=== PATIENT | male | born 1970 | race Caucasian/White ===

== ENCOUNTER 2018-09-27 13:20 | Emergency (ER) | payer SELFPAY ==
[2018-09-27 13:22] VITALS: BP 122/91; PULSE 77; RESP 18; TEMP 36.6; O2SAT 98; BMI 31.5
[2018-09-27 13:31] LABS: Bedside Glucose 88 mg/dL (70-110)
--- NOTE | 2018-09-27 13:35 | CT_ITS ---
STUDY: CT BRAIN WITHOUT CONTRAST REASON FOR EXAM: Male, 48 years old. Left arm weakness. RADIATION DOSAGE (If Supplied By Facility): CTDIvol = ( 44.99 ) mGy, DLP = ( 846.73 ) mGycm TECHNIQUE: Transaxial CT imaging of the brain was performed without administration of intravenous contrast material. Individualized dose optimization techniques were used for this CT. COMPARISON: None. FINDINGS: Normal soft tissue structures. Normal calvarium. Normal size ventricles and extra-axial spaces for the patient's age. Normal white matter tracts of the cerebral hemispheres. Normal basal ganglia and thalami. Normal brainstem. Normal cerebellum. There is no intracranial hemorrhage. There are no findings of an acute ischemic infarction. Mucosal thickening of the ethmoid sinuses bilaterally. CT/Brain/Head without Contrast IMPRESSION: Normal unenhanced CT scan of the brain. Electronically Signed: Judah Montgomery MD at 15:08 EST Tel [phone], Service support ,
--- NOTE | 2018-09-27 13:37 | EKG12_ITS ---
Test Reason : STROKE SYMPTOMS Blood Pressure : / mmHG Vent. Rate : 078 BPM Atrial Rate : 078 BPM P-R Int : 218 ms QRS Dur : 118 ms QT Int : 398 ms P-R-T Axes : 059 -41 005 degrees QTc Int : 453 ms Sinus rhythm with 1st degree A-V block Possible Left atrial enlargement Left axis deviation Incomplete right bundle branch block Abnormal ECG Confirmed by ISAIAS PINK ([id number]), medical transcription editor SAMEER NOBLE ([id number]) on 09/30/2018 1:06:29 PM Referred By: [place]LE Confirmed By:ISAIAS PINK
--- NOTE | 2018-09-27 13:37 | MRI_ITS ---
STUDY: MRI CERVICAL SPINE WITHOUT CONTRAST REASON FOR EXAM: Male, 48 years old. Neck pain and left arm pain. Flaccid left arm. TECHNIQUE: Standardized fat and water weighted pulse sequences were obtained in the sagittal and axial planes. COMPARISON: None FINDINGS: Normal foramen magnum and brainstem-cervical cord junction. 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 Normal anterior atlantoaxial articulation. Normal odontoid process. Mild cervical kyphosis. Normal vertebral bodies and posterior osseous elements. C2-3: Normal endplates. Normal disc height, signal and morphology. Normal central canal and intervertebral neural foramina. C3-4: Normal endplates. Normal disc height. Minimal anterolisthesis of C3 and C4. Small posterior bulging disc. Normal central canal and bilateral intervertebral neural foramina. C4-5: Normal endplates. Normal disc height and morphology. Normal central canal and bilateral intervertebral neural foramina. C5-6: Normal endplates. Moderate disc space height narrowing. No ventral extra dural defect. Normal central canal and bilateral intervertebral neural foramina. C6-7: Normal endplates. Mild disc space height narrowing. Minimal degenerative anterolisthesis of C6-C7. Small right posterior paramedian disc protrusion. Normal central canal and bilateral intervertebral neural foramina. C7-T1: Normal endplates. Normal disc height and morphology. Mild degenerative anterolisthesis of C7 on T1. Normal central canal and bilateral intervertebral neural foramina. T1-T2 and T2-T3: Normal endplates. Normal disc height, hydration and morphology. Normal central canal and bilateral intervertebral neural foramina. T3-T4: (Sagittal only). Normal endplates. Normal disc height and morphology. Normal central canal and bilateral intervertebral neural foramina. Normal cervical cord. Normal visualized soft tissue structures. MRI/Spine Cervical (Routine) IMPRESSION: 1. Minimal degenerative anterolisthesis of C6 on C7 and small right posterior paramedian disc protrusion. 2. Moderate C5-C6 disc space height narrowing. 3. Minimal degenerative anterolisthesis of C3 on C4. 4. Minimal degenerative anterolisthesis of C7 on T1. 5. No MRI evidence of cervical extruded disc fragment or spinal stenosis. 6. Asymmetric degenerative arthrosis of the atlantooccipital articulation with minimal fluid inside the joint spaces. Electronically Signed: Gabo Merrill MD at 15:35 EST , Service support ,
[2018-09-27 13:48] LABS: Absolute Lymphocyte Count 1.59 X10^3/ul (0.83-4.51); Absolute Neutrophil Count 10.1 X10^3/uL (2.0-7.7); Basophil# 0.04 X10^3/uL; Basophil% 0.3 % (0-1); Eosinophil# 0.79 X10^3/uL; Eosinophils% 5.8 % (0-5); Hematocrit 42.2 % (40-54); Hemoglobin 13.4 g/dl (13.0-16.5); Lymphocyte # 1.59 X10^3/ul (4.0); Lymphocyte % 11.8 % (19-41); Mean Corp Hgb Conc 31.8 g/gl (32-36); Mean Corpuscular Hgb 26.4 pg (27.0-32.0); Mean Corpuscular Volume 83.1 fL (80-94); Mean Platelet Vol. 9.2 fl (6.2-12.0); Monocyte# 0.98 X10^3/uL; Monocyte% 7.2 % (0-10); Neutrophil % 74.8 % (47-70); POSITIVE COUNT NO; POSITIVE DIFFERENTIAL NO; POSITIVE MORPHOLOGY NO; Platelet Count 374 K/mm3 (150-450); RBC Distribution Width CV 16.4 % (11.6-14.6); RBC Distribution Width SD 50.4 fl (35.1-43.9); Red Blood Count 5.08 M/mm3 (4.6-6.2); White Blood Count 13.5 K/mm3 (4.4-11.0)
[2018-09-27 13:53] LABS: Anion Gap 7 (5-15); BUN 13 mg/dL (7-18); BUN/Creat Ratio 12.3 RATIO (10-20); Calcium,Total 8.8 mg/dL (8.5-10.1); Chloride 104 mmol/L (98-107); Creatinine, Serum 1.06 mg/dL (0.70-1.30); EST Glomerular Filtration Rate 79 mL/min (>60); Est Glom Filt Rate - Afr Amer 96 mL/min (>60); Estimated Creatinine Clearance 104.63 ml/min; Glucose 84 mg/dL (74-106); Potassium 3.6 mmol/L (3.5-5.1); Sodium Level 138 mmol/L (136-145)
[2018-09-27 14:05] VITALS: BP 115/86; PULSE 79; RESP 14
--- NOTE | 2018-09-27 16:18 | ED.VISSUMM ---
- ER Visit Summary Date of Service: 09/27/18 Chief Complaint: Left posterior neck and left arm discomfort. History of Present Illness: The patient is a 48 M no significant past medical history other than prior valve replaced at [facility]. Patient states on Sunday he started having pain down into his left arm it felt like burning discomfort in his posterior shoulder. Now he states he has trouble lifting his left arm. Denies any numbness or weakness to his left hand. No headache. Ex- states she thought he was having trouble getting out of the car. He said he just felt stiff. He denies any leg weakness. Physical Examination: Well-appearing middle-age male. Vital signs are stable afebrile. He is in no distress. H EENT exam unremarkable atraumatic. Pupils round reactive light. No facial droop. Normal speech. Neck none tender C-spine. He does have left trapezius tenderness. Lungs clear to auscultation bilaterally. Heart regular rate and rhythm no murmur. Abdomen soft nontender. Patient will not lift his left arm he has normal motor strength and sensation in his left hand and radial pulse. He has normal flexion-extension of the left wrist. He will not raise his left arm above his shoulder. And says he really cannot. The right upper extremity both lower extremes are unremarkable neurovascular intact. Normal motor strength and sensation. Back exam he does have reproducible left trapezius tenderness. There is no signs of trauma. Neurologically he is awake and alert. He will not raise his left arm. This may be secondary to pain but he says he cannot. He has normal motor strength and sensation of the left hand. Test Results: CBC shows a white count 13.3. Chemistries unremarkable. EKG sinus rhythm rate 78 first-degree AV block. CT of his brain shows no acute abnormality. MRI of his spine shows degenerative changes but no acute process consistent with any type of disc impingement on the spinal cord. These are chronic changes and not consistent with his acute problem. Emergency Department Course and Treatment: Mani Abel. After an extensive workup I wanted to reevaluate the patient. He is now moving arm better. He has no other findings. I think this is all secondary to easiest spasm. And pain. Treatment Plan: Valium for muscle relaxation. Motrin for pain. Hot shower and warm bath. Massage. Disposition: Discharge Impression: Acute left posterior neck and back pain secondary to trapezius spasm This note was generated with Cortona3D dictation software. It may contain incorrect words, spelling, and punctuation that were not noted in review of the chart prior to signing ED Disposition - Plan for ED Patient: Chief Complaint: Neuro S/Sx Referrals: Care Physician,No Primary [Primary Care Provider] -
[2018-09-27] MEDS: HYDROcodone Bitartrate/Apap 5/325 Tablet PO (16:21)
--- NOTE | 2018-09-27 16:21 | ED.DCSUM_ITS ---
- ER Visit Summary Date of Service: 09/27/18 Chief Complaint: Left posterior neck and left arm discomfort. History of Present Illness: The patient is a 48 M no significant past medical history other than prior valve replaced at [facility]. Patient states on Sunday he started having pain down into his left arm it felt like burning discomfort in his posterior shoulder. Now he states he has trouble lifting his left arm. Denies any numbness or weakness to his left hand. No headache. Ex- states she thought he was having trouble getting out of the car. He said he just felt stiff. He denies any leg weakness. Physical Examination: Well-appearing middle-age male. Vital signs are stable afebrile. He is in no distress. H EENT exam unremarkable atraumatic. Pupils round reactive light. No facial droop. Normal speech. Neck none tender C- spine. He does have left trapezius tenderness. Lungs clear to auscultation bilaterally. Heart regular rate and rhythm no murmur. Abdomen soft nontender. Patient will not lift his left arm he has normal motor strength and sensation in his left hand and radial pulse. He has normal flexion-extension of the left wrist. He will not raise his left arm above his shoulder. And says he really cannot. The right upper extremity both lower extremes are unremarkable neurovascular intact. Normal motor strength and sensation. Back exam he does have reproducible left trapezius tenderness. There is no signs of trauma. Neurologically he is awake and alert. He will not raise his left arm. This may be secondary to pain but he says he cannot. He has normal motor strength and sensation of the left hand. Test Results: CBC shows a white count 13.3. Chemistries unremarkable. EKG sinus rhythm rate 78 first-degree AV block. CT of his brain shows no acute abnormality. MRI of his spine shows degenerative changes but no acute process consistent with any type of disc impingement on the spinal cord. These are chronic changes and not consistent with his acute problem. Emergency Department Course and Treatment: Mani Abel. After an extensive workup I wanted to reevaluate the patient. He is now moving arm better. He has no other findings. I think this is all secondary to easiest spasm. And pain. Treatment Plan: Valium for muscle relaxation. Motrin for pain. Hot shower and warm bath. Massage. Disposition: Discharge Impression: Acute left posterior neck and back pain secondary to trapezius spasm This note was generated with TouchPal dictation software. It may contain incorrect words, spelling, and punctuation that were not noted in review of the chart prior to signing ED Disposition - Plan for ED Patient: Chief Complaint: Neuro S/Sx Referrals: Care Physician,No Primary [Primary Care Provider] -
--- NOTE | 2018-09-27 16:21 | ED.DEP ---
ED Disposition - Plan for ED Patient: Disposition: Home or Assisted Living Chief Complaint: Neuro S/Sx Instructions: ED Spasm Muscle Prescriptions: Diazepam [Valium] 5 mg PO Q6H PRN PRN #20 tab PRN Reason: Muscle Spasm Referrals: Hector Souza MD [STAFF PHYSICIAN] - 3-5 Days if not improving Additional Instructions: Your muscle spasm in your left posterior shoulder and neck. There are no signs of stroke or severe neck disc disease. The muscle spasm is causing pain in your left arm and discomfort when you move your left arm. Hot shower warm bath to relax the muscle spasm. Massage. Motrin for pain and inflammation. Valium which is a good muscle relaxant. Do not drive or drink while using the Valium. Follow-up if not improving.
[2018-09-27 16:23] VITALS: BP 143/99; PULSE 79; RESP 16; O2SAT 99
== END 2018-09-27 16:29 | disposition home or self-care (01) ==
PROVIDERS: Emergency Provider Emergency Medicine
DX: M62.838 Other muscle spasm (principal); Z95.2 Presence of prosthetic heart valve
CPT/HCPCS: 70450; 72141; 80048; 82962; 85025; 93005; 99284; A4216

== ENCOUNTER 2020-04-16 18:03 | Inpatient (IN) | payer SELFPAY ==
[2020-04-16 18:06] VITALS: BP 108/68; PULSE 99; RESP 29; TEMP 36.8; O2SAT 96; BMI 37.0
[2020-04-16 18:10] VITALS: BP 108/68; PULSE 99; RESP 27; O2SAT 96
--- NOTE | 2020-04-16 18:26 | EKG12_ITS ---
Test Reason : CHEST DISCOMFORT Blood Pressure : / mmHG Vent. Rate : 099 BPM Atrial Rate : 099 BPM P-R Int : 220 ms QRS Dur : 124 ms QT Int : 370 ms P-R-T Axes : 000 -60 -05 degrees QTc Int : 474 ms Sinus rhythm with 1st degree A-V block Right bundle branch block Left anterior fascicular block Bifascicular block Abnormal ECG Confirmed by BAYLEE HOOK, MOLLY ([id number]), film and video editor KEVIN JARA ([id number]) on 04/19/2020 1:02:23 PM Referred By: BB Confirmed By:MOLLY BEACH MD
--- NOTE | 2020-04-16 18:28 | ED.DCSUM_ITS ---
History of Present Illness Chief Complaint: Chest Pain Informant: Patient Onset: Month(s) - many Activity at onset: Unknown Timing: Intermittent, Lasts - minutes-hrs at a time; today's episode 20-30 minutes so far Quality: Dull Location: Left Chest Current Severity: Mild Maximum Severity: Moderate Worsened By: Not Worsened By: Exertion, Movement of Arm, Movement of Torso, Eating, Palpation, Breathing, Coughing Relieved By: - - typically just goes away. no treatments so far today except EMS IVF started and brought into air conditioning. Associated Symptoms: Nausea, Diaphoresis, Lightheadedness. Negative for: Vomiting, Dyspnea, Cough, Fever, Acid Reflux, Palpitations Narrative: Patient states his air conditioner is broken, he has a fan at his house, and there are he advisories out that humidity is high, and he has been very hot all day and not drinking any fluid. He presents at about 1800, saying that he feels like he is very dehydrated. He went to a restaurant, ordered some food and had a couple of beers, after that he ordered some ice tea, and gradually felt worse and worse, became more and more sweaty although he was indoors, and had some lightheadedness. During all of this, the chest discomfort started on his left side without radiation. He states he gets this all the time, he has had it for months maybe years, and he gets it very frequently. No known history of heart problems except for an aortic valve replacement that he had long ago. 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 He is on no medications including aspirin. He has chronic swelling in his legs, that has been worse with the heat lately, but he states he put some tight socks on the other day and today the swelling is better than it has been. He denies any shortness of breath, fevers, headache, myalgias, other illnesses. He has chronic discomfort in his low back. He is a little nauseated but denies any other abdominal symptoms. - Past Medical History (1) Asthma Status: Chronic (2) Churg-Geronimo syndrome Status: Chronic (3) History of aortic valve replacement with bioprosthetic valve Status: Chronic (4) Colitis Status: Acute Past Medical History - Allergies and Home Meds Allergies/Adverse Reactions: Allergies Penicillins [PCN] Allergy (Verified 04/16/20 18:06) PT UNSURE OF REACTION Primary Care Physician: Care Physician,No Primary [Primary Care Provider] - Surgical History: - - History of J-pouch history of placement of bioprosthetic valve Lives: Alone Smoking Status: Never smoker Review of Systems General: Reports: Malaise, Sweats. Denies: Chills, Fever Eyes: Denies: Visual changes - bilaterally, Diplopia ENT: Denies: Rhinorrhea, Sore throat Cardiovascular: Reports: Chest pain. Denies: Palpitations Respiratory: Denies: Dyspnea, Cough, Dyspnea on exertion Gastrointestinal: Reports: Nausea, Hematochezia - chronic, almost every BM, x years. Denies: Abdominal pain, Vomiting, Diarrhea, Melena Genitourinary: Denies: Dysuria, Hematuria, Frequency Musculoskeletal: Reports: Back pain, Swelling. Denies: Extremity Pain Skin: Reports: Rash - chronic red spots. Denies: Wounds Neurological: Reports: - - no confusion. Denies: Headache, Weakness, Numbness Physical Exam Vital Signs/Narrative: Vital Signs Temp Pulse Resp BP Pulse Ox 04/16/20 18:10 99 27 H 108/68 96 04/16/20 18:06 98.2 F 99 29 H 108/68 96 Inital Vital Signs reviewed: Yes General: Well nourished, Well developed, Obese, No Acute Distress Head: Normocephalic, Atraumatic Eyes: Perrl, EOMI ENT: Moist mucous membranes, No rhinorrhea Neck: Supple, Nontender, No lymphadenopathy Cardiovascular: Regular rate, Regular rhythm, No murmurs Respiratory: No distress, CTA bilaterally, Chest nontender Abdomen: Soft, Nontender, Nondistended, Normal bowel sounds Back: Nontender, Normal Inspection Extremities: Nontender, Edema - 1+ BLE pretib, symmetric. Negative for: Calf T enderness Skin: Normal color, No rash, No Trauma Neurological: Alert, Oriented x3, Cranial nerves II-XII grossly intact, Normal Strength, Normal Sensation. Negative for: Confused Psychological: Normal affect, Normal Mood Diagnostic/Tx/Re-eval Impressions Chest X-Ray 04/16/20 18:30 IMPRESSION: No acute cardiopulmonary findings or changes. Negative for new consolidation, focal atelectasis or pleural effusion. Stable borderline cardiomegaly status post prior midline sternotomy for cardiac valve replacement. Electronically Signed: Maria Del Rosario Aguirre MD at 19:06 EDT , Service support , 04/16/20 18:30 Chest 1 View (Portable) [RAD] Stat Laboratory Results 04/16/20 04/16/20 18:00 18:00 WBC 12.1 H RBC 5.21 Hgb 14.3 Hct 44.7 MCV 85.8 MCH 27.4 MCHC 32.0 RDW Std Deviation 51.2 H RDW Coeff of Paulo 16.4 H Plt Count 387 MPV 10.6 Immature Gran % (Auto) 0.300 Neut % (Auto) 74.0 H Lymph % (Auto) 12.7 L [place] % (Auto) 6.5 Eos % (Auto) 5.8 H Baso % (Auto) 0.7 Absolute Neuts (auto) 8.9 H Absolute Lymphs (auto) 1.54 Nucleated RBC % 0 Sodium 134 L Potassium 2.6 L* Chloride 99 Carbon Dioxide 23.0 Anion Gap 12 BUN 25 H Creatinine 2.14 H Estim Creat Clear Calc 50.70 Est GFR (MDRD) Af Amer 42 L Est GFR (MDRD) Non-Af 35 L BUN/Creatinine Ratio 11.7 Glucose 181 H Calcium 8.7 Troponin I < 0.015 - Rhythm Strip Rhythm Strip: Sinus Rhythm Rate: 99 Ectopy: None - EKG Initial EKG Interpretation: Sinus Rhythm, No Acute Injury Pattern, RBBB, LAFB, AV Block - 1st deg Prior: Unchanged Treatment: - - IV fluids. Aspirin held due to intermittent rectal bleeding and no evidence of acute coronary syndrome at this time. ANGELIA Risk: No Positive ANGELIA Elements Score: 0 - Medical Decision Making Patient has doubled his creatinine, and is very hypokalemic, not to mention that he probably has heat exhaustion and is dehydrated. His EKG shows a bifascicular block, but this was seen on his old one. I think he is unlikely to have acute coronary syndrome, we could cycle enzymes while staying in the hospital, I think he needs to stay mainly for the other issues overnight. ED Disposition - Plan for ED Patient: Disposition: Acute Care Hospital [facility] Diagnosis: Chest pain, unspecified, Acute kidney injury, Churg-Geronimo syndrome, Hypokalemia, Heat exhaustion Referrals: Care Physician,No Primary [Primary Care Provider] -
--- NOTE | 2020-04-16 18:30 | RAD_ITS ---
STUDY: X-RAY CHEST REASON FOR EXAM: Male, 50 years old. chest pain. hx of complex cardiac disease. TECHNIQUE: 1 view COMPARISON: Prior chest radiograph of October 24, 2013 FINDINGS: The lungs are clear and expanded. There is no demonstrated pleural abnormality. Borderline cardiomegaly. Status post prior midline sternotomy for cardiac valve replacement. Normal visualized pulmonary arteries. Normal visualized aortic arch and descending thoracic aorta. Normal visualized thoracic spine. Normal visualized ribs, clavicles, and shoulders. There is no demonstrated abnormality of the visualized soft tissue structures of the upper abdomen. RAD/Chest 1 View (Portable) IMPRESSION: No acute cardiopulmonary findings or changes. Negative for new consolidation, focal atelectasis or pleural effusion. Stable borderline cardiomegaly status post prior midline sternotomy for cardiac valve replacement. Electronically Signed: Maria Del Rosario Aguirre MD at 19:06 EDT , Service support ,
[2020-04-16 18:37] LABS: Absolute Lymphocyte Count 1.54 X10^3/uL (0.83-4.51); Absolute Neutrophil Count 8.9 X10^3/uL (2.0-7.7); Basophil# 0.09 X10^3/uL; Basophil% 0.7 % (0-1); Eosinophils% 5.8 % (0-5); Hematocrit 44.7 % (40-54); Hemoglobin 14.3 g/dL (13.0-16.5); Lymphocyte # 1.54 X10^3/ul (4.0); Lymphocyte % 12.7 % (19-41); Mean Corpuscular Hgb 27.4 pg (27.0-32.0); Mean Corpuscular Volume 85.8 fL (80-94); Mean Platelet Vol. 10.6 fl (6.2-12.0); Monocyte# 0.79 X10^3/uL; Monocyte% 6.5 % (0-10); NRBC Flagged by Analyzer 0 % (0-5); Neutrophil # 8.92 X10^3/uL (2.7-7.7); Platelet Count 387 K/mm3 (150-450); RBC Distribution Width CV 16.4 % (11.6-14.6); RBC Distribution Width SD 51.2 fl (35.1-43.9); Red Blood Count 5.21 M/mm3 (4.6-6.2); White Blood Count 12.1 K/mm3 (4.4-11.0)
[2020-04-16 18:53] LABS: Anion Gap 12 (5-15); BUN 25 mg/dL (7-18); BUN/Creat Ratio 11.7 RATIO (10-20); Calcium,Total 8.7 mg/dL (8.5-10.1); Chloride 99 mmol/L (98-107); Creatinine, Serum 2.14 mg/dL (0.70-1.30); EST Glomerular Filtration Rate 35 mL/min (>60); Est Glom Filt Rate - Afr Amer 42 mL/min (>60); Glucose 181 mg/dL (74-106); Sodium Level 134 mmol/L (136-145)
[2020-04-16 18:54] LABS: Potassium 2.6 mmol/L (3.5-5.1)
[2020-04-16] MEDS: Ondansetron 4 MG/2 ML Vial IV (18:56)
[2020-04-16] MEDS: 0.9% Normal Saline 1,000 ML 1000 ML IV (18:56)
[2020-04-16 19:37] LABS: Bacteria 0 SEEN /hpf (None Seen); Mucous, Urine 0 SEEN /hpf (<or=2+)
--- NOTE | 2020-04-16 19:40 | HP.PCM_ITS ---
Problem List (1) Acute kidney injury Status: Acute (2) Hypokalemia Status: Acute (3) Heat exhaustion Status: Acute Qualifiers: Encounter type: initial encounter Qualified Code(s): T67.5XXA - Heat exhaustion, unspecified, initial encounter (4) History of aortic valve replacement with bioprosthetic valve Status: Chronic (5) Churg-Geronimo syndrome Status: Chronic History of Present Illness Date of Admission: 04/16/20 Chief Complaint: Presyncope - 1 day The patient is a 50 year old M with past medical history of ulcerative colitis status post colectomy, Churg-Geronimo who comes in with complaints of presyncope that happened on the day of admission. 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 He has not been drinking enough on the day of admission. He has been feeling fatigued and occasionally dizzy. He went to eat in a restaurant today. He ordered beer and when he was not feeling well still he ordered Mountain Dew. He had a feeling that he was going to pass out as he was very dizzy. When the EMS got there, he appeared to be diaphoretic. He has occasional left-sided chest discomfort, that is no worse with exertion. He also gets occasional numbness in his hands. He has chronic bloody diarrhea from his ulcerative colitis. He has 4-5 bowel movements a day. He does not follow-up with a full stack java developer. His vitals show temperature of 98.2F, heart rate 99, blood pressure 108/68, respiratory to 29, oxygen saturation was 96% on room air. WBC count is 12.1, hemoglobin 14.3, platelet count 387, sodium 134, thousand 2.6, chloride 99, carbonate 23, BUN 25, creatinine 2.14. His previous creatinine in 2007 was 1.06. UA was slightly cloudy, ketones positive, nitrite negative, leukocyte esterase 25, WBC 0-5. Chest x-ray was negative for acute cardiopulmonary abnorm ality. Past Medical History Past Medical History (Chronic Problems): Chronic Problems Asthma (Chronic) History of aortic valve replacement with bioprosthetic valve (Chronic) Churg-Geronimo syndrome (Chronic) Allergies Penicillins [PCN] Allergy (Verified 04/16/20 18:06) PT UNSURE OF REACTION Home Medications: Ambulatory Orders Medication Instructions Recorded NK 04/16/20 Surgical History: colectomy, - - History of J-pouch, history of placement of bioprosthetic valve Psychiatric History: No pertinent psych hx Lives: Alone Smoking Status: Never smoker Tobacco Use: Non-smoker Alcohol: Occasional Drugs: None - *Family History Maternal History Items: Heart Disease Paternal History Items: Unknown Review of Systems Constitutional: Reports: Weakness, Fatigue. Denies: Anorexia, Chills, Fever, Night Sweats, Malaise, Weight Change Eyes: Denies: Blurred vision, Cataracts, Conjunctivae Inflammation, Pain, Redness, Vision Change HEENT: Denies: Difficulty Hearing, Difficulty Swallowing, Head Aches, Hearing Changes, Sinus Congestion, Sinus Drainage, Sore Throat Cardiovascular: Reports: Light Headedness, - - presyncope. Denies: Chest Pain, Claudication, Chest Pressure, Orthopnea, Palpitations, Paroxysmal Noc. Dyspnea Respiratory: Denies: Cough, Hemoptysis, Shortness of breath at rest, Shortness of breath upon exertion, Sputum production Gastrointestinal: Reports: Diarrhea. Denies: Abdominal Pain, Hematemesis, Hematochezia, Nausea, Vomiting Genitourinary: Denies: Dysuria, Frequency, Incontinence, Nocturia Musculoskeletal: Denies: Joint Pain, Joint stiffness, Joint swelling, Joint Tenderness Skin: Denies: Rash, Wounds Neurological: Denies: Numbness, Tingling, Focal weakness Psychiatric: Denies: Anxiety, Depression, Homicidal Ideations, Suicidal Ideations Hematologic/ Lymphatic: Denies: Easy Bruising, Easy Bleeding VTE Information - Inpt Only VTE Present on Admission: No VTE Pharm Prophylaxis ordered?: Yes Patient Problems: Active and Suspected Problems Chest pain, unspecified (Acute) Acute kidney injury (Acute) Hypokalemia (Acute) Heat exhaustion (Acute) - Physical Exam Vitals/I&O's: Vital Signs Temp Pulse Resp BP Pulse Ox 98.2 F 99 27 H 108/68 96 04/16/20 18:06 04/16/20 18:10 04/16/20 18:10 04/16/20 18:10 04/16/20 18:10 Oxygen Delivery Method Room Air Weight: 138 kg Body Mass Index (BMI) 37.0 Finger Stick Blood Glucose 88 General: Alert, Oriented x3, Cooperative, No apparent distress HEENT: Atraumatic, PERRLA, EOMI, Normocephalic Oral: Moist Mucosa Neck: Supple Lungs: Clear to auscultation, Normal air movement Cardiovascular: Regular rate, Regular Rhythm, Normal S1, Normal S2, Murmur - ejection systolic n aortic region, 2-3/6 Abdomen: Bowel Sounds Present, Soft, Non Tender, Non-Distended, No Hepato- splenomegaly, - - lower midline scar Extremities: No edema Skin: No rashes Musculoskeletal: No Tenderness to Palpation of Joints or Extremities Lymphatic: No Cervical, Supraclavicular, or Inguinal Adenopathy Neurological: Cranial nerves II-XII grossly intact, Neuro grossly intact Psych/Mental Status: Normal Affect, Appropriate Laboratory Results 04/16/20 18:00: WBC 12.1 H, RBC 5.21, Hgb 14.3, Hct 44.7, MCV 85.8, MCH 27.4, MCHC 32.0, RDW Std Deviation 51.2 H, RDW Coeff of Paulo 16.4 H, Plt Count 387, MPV 10.6, Immature Gran % (Auto) 0.300, Neut % (Auto) 74.0 H, Lymph % (Auto) 12.7 L , [place] % (Auto) 6.5, Eos % (Auto) 5.8 H, Baso % (Auto) 0.7, Absolute Neuts (auto) 8.9 H, Absolute Lymphs (auto) 1.54, Nucleated RBC % 0 04/16/20 18:00: Sodium 134 L, Potassium 2.6 L*, Chloride 99, Carbon Dioxide 23.0, Anion Gap 12, BUN 25 H, Creatinine 2.14 H, Estim Creat Clear Calc 50.70, Est GFR (MDRD) Af Amer 42 L, Est GFR (MDRD) Non-Af 35 L, BUN/Creatinine Ratio 11.7, Glucose 181 H, Calcium 8.7, Troponin I < 0.015 04/16/20 19:15: Urine Color Pending, Urine Clarity Pending, Urine pH Pending, Ur Specific [place] Pending, Urine Protein Pending, Urine Glucose (UA) Pending, Urine Ketones Pending, Urine Occult Blood Pending, Urine Nitrite Pending, Urine Bilirubin Pending, Urine Urobilinogen Pending, Ur Leukocyte Esterase Pending, Urine RBC Pending, Urine WBC Pending, Ur Squamous Epith Cells Pending, Urine Bacteria Pending, Urine Mucus Pending Current Medications Potassium Chloride () 10 meq in 100 mls @ 100 mls/hr IV BOLUS Q1H CHAPO Stop: 04/16/20 20:29 Assessment/Plan All Active Problems Colitis (Acute) Chest pain, unspecified (Acute) Acute kidney injury (Acute) Hypokalemia (Acute) Heat exhaustion (Acute) UTI (urinary tract infection) (Acute) Ulcerative chronic pancolitis (Resolved) 50 year old M with past medical history of ulcerative colitis status post colectomy, Churg-Geronimo who comes in with complaints of presyncope that happened on the day of admission. 1. Presyncope secondary to EDI/electrolyte imbalances Continue on IV fluids 2. Acute kidney injury, prerenal secondary to dehydration in the context of chronic diarrhea Patient's admitting creatinine is 2.14. His creatinine 2008 was 1.06 We will continue with IV fluids, recheck blood work in a.m. 3. Hypokalemia likely secondary to chronic diarrhea, potassium was 2.6, Replaced IV 10 mEq x 1 in the ED We will continue with IV potassium 30 mEq x 1, Klor-Con 60 mEq p.o. x1 We will check magnesium levels, repeat blood work in a.m. 4. Chronic bloody diarrhea, history of ulcerative colitis status post colectomy We will check stool for enteric panel, contact precautions pending results of stool testing 5. Leukocytosis, reactive 6. DVT PPx- early ambulation Inpatient E&M: [id number] Init Hosp L3
[2020-04-16] MEDS: Potassium Chloride 10mEq/100mL 10 MEQ/100 ML IV.SOLN. 100 MEQ IV BOLUS ×4 (19:51→23:22)
[2020-04-16 19:52] VITALS: BP 107/76; PULSE 94; RESP 19; O2SAT 95; O2SAT 96
[2020-04-16 19:53] VITALS: BP 107/76; PULSE 94; RESP 20; TEMP 36.6; O2SAT 95
[2020-04-16 20:06] LABS: Color, Urine Yellow (Yellow); Glucose, Dipstick Normal (Normal); Ketone-Dipstick 5 mg/dl (Negative); Leukocyte Esterase-Dipstick 25 /ul (Negative); Nitrite-Dipstick Negative (Negative); Occult Blood-Urine 10 /ul (Negative); Protein-Dipstick 100 mg/dl (Negative); Urine Clarity Sl. Cloudy (Clear); Urine Urobilinogen 4 mg/dl (Normal)
[2020-04-16 20:15] VITALS: BP 135/82; PULSE 93; RESP 18; TEMP 36.5; O2SAT 95
[2020-04-16 20:15] LABS: Urine Bilirubin Dipstick 3 mg/dL (Negative)
[2020-04-16 20:23] VITALS: PULSE 104; BMI 35.2
[2020-04-16 20:23] LABS: Amorphous Sediment 1+ URATE; Hyaline Cast 0-5 SEEN /lpf (0-5); Red Blood Cells-Urine 0-5 SEEN /hpf (0-5); Squamous Epithelial Cells - UA 0-5 SEEN /hpf (0-5); White Blood Cells 0-5 SEEN /hpf (0-5)
--- NOTE | 2020-04-16 20:34 | EKG12_ITS ---
Test Reason : CP ADMISSION Blood Pressure : / mmHG Vent. Rate : 092 BPM Atrial Rate : 092 BPM P-R Int : 232 ms QRS Dur : 126 ms QT Int : 402 ms P-R-T Axes : -45 -51 -14 degrees QTc Int : 497 ms Ectopic atrial rhythm Left axis deviation Non-specific intra-ventricular conduction block Abnormal ECG When compared with ECG of 27-SEP-2018 13:23, Ectopic atrial rhythm has replaced Sinus rhythm Confirmed by BAYLEE HOOK, MOLLY ([id number]), editorial project manager KEVIN JARA ([id number]) on 04/20/2020 10:10:38 AM Referred By: FRANKI Confirmed By:MOLLY BEACH MD
[2020-04-16] MEDS: 0.9% Normal Saline 1,000 ML 125 ML IV (20:45)
[2020-04-16 21:20] LABS: AST(SGOT) 63 U/L (15-37); Alanine Aminotransfer ALT/SGPT 66 U/L (16-61); Albumin, Serum 3.7 g/dL (3.2-5.0); Alkaline Phosphatase 194 U/L (45-117); Bilirubin, Direct 0.16 mg/dL (0.00-0.30); Globulin 5.8 g/dL (2.2-4.2); Protein, Total 9.5 g/dL (6.4-8.2)
[2020-04-17 02:15] VITALS: BP 96/64; PULSE 74; RESP 18; TEMP 36.7; O2SAT 93
[2020-04-17 03:00] VITALS: PULSE 77
[2020-04-17] MEDS: 0.9% Normal Saline 1,000 ML 125 ML IV (04:51)
[2020-04-17 06:43] LABS: Absolute Lymphocyte Count 1.74 X10^3/uL (0.83-4.51); Absolute Neutrophil Count 6.7 X10^3/uL (2.0-7.7); Basophil# 0.09 X10^3/uL; Basophil% 0.8 % (0-1); Eosinophils% 10.3 % (0-5); Hematocrit 41.3 % (40-54); Hemoglobin 12.8 g/dL (13.0-16.5); Lymphocyte # 1.74 X10^3/ul (4.0); Lymphocyte % 16.3 % (19-41); Mean Corpuscular Hgb 27.4 pg (27.0-32.0); Mean Corpuscular Volume 88.2 fL (80-94); Mean Platelet Vol. 10.1 fl (6.2-12.0); Monocyte# 1.07 X10^3/uL; NRBC Flagged by Analyzer 0 % (0-5); Neutrophil # 6.67 X10^3/uL (2.7-7.7); Neutrophil % 62.3 % (47-70); Platelet Count 313 K/mm3 (150-450); RBC Distribution Width CV 17.1 % (11.6-14.6); RBC Distribution Width SD 53.7 fl (35.1-43.9); Red Blood Count 4.68 M/mm3 (4.6-6.2); White Blood Count 10.7 K/mm3 (4.4-11.0)
[2020-04-17 07:00] VITALS: PULSE 70
[2020-04-17 08:15] VITALS: BP 126/78; PULSE 78; RESP 16; TEMP 36.7; O2SAT 95
[2020-04-17 08:22] LABS: ALB/GLOB Ratio 0.6 RATIO (0.9-2.4); AST(SGOT) 41 U/L (15-37); Alanine Aminotransfer ALT/SGPT 55 U/L (16-61); Albumin, Serum 3.1 g/dL (3.2-5.0); Alkaline Phosphatase 140 U/L (45-117); Anion Gap 7 (5-15); BUN 23 mg/dL (7-18); BUN/Creat Ratio 17.8 RATIO (10-20); Chloride 102 mmol/L (98-107); Creatinine, Serum 1.29 mg/dL (0.70-1.30); EST Glomerular Filtration Rate 63 mL/min (>60); Est Glom Filt Rate - Afr Amer 76 mL/min (>60); Estimated Creatinine Clearance 84.11 ml/min; Glucose 102 mg/dL (74-106); Potassium 3.4 mmol/L (3.5-5.1); Protein, Total 8.1 g/dL (6.4-8.2); Sodium Level 136 mmol/L (136-145)
--- NOTE | 2020-04-17 10:07 | CASEMGMT ---
RN MIGUELINA Face to Face with patient for initial transition planning/care coordination assessment. RN CM introduced self and role at [facility]. Patient lying in bed, alert and oriented. Patient willing to participate in assessment and is able to answer all questions appropriately. Care providers, pharmacy, and demographics verified. Patient wishes to discharge home, denies need for home health at this time. Patient states he has no further needs or concerns at this time. CM to follow for discharge planning needs that may arise. PCP: No PCP, list of local PCPs provided Specialists: none Preferred Pharmacy: [facility] Insurance: None, patient states he makes too much for medicaid Prescription Benefit: none Living Will/HPOA: none LNOK: daughter, ex- Living Arrangements: Patient lives alone in 2 story home. Patient is independent at home and able to ambulate stairs. Transportation: self or family DME/HHC: Patient denies need for DME or HHC. Disposition Plan: Patient to discharge home with follow-up plans in place. Margo MCCRAY, RN, CM
--- NOTE | 2020-04-17 12:36 | DCINST_ITS ---
- Discharge Diagnoses Current Active Problems: Current Active and Chronic Problems Chest pain, unspecified (Acute) Acute kidney injury (Acute) Hypokalemia (Acute) Heat exhaustion (Acute) Churg-Geronimo syndrome (Chronic) You will use the following diet at home:: No restrictions, Regular Your food should be the consistency of: Regular Your liquids should be the consistency of: Regular/Thin Discharge Activity: Return to Normal Activity, No Restrictions Call your doctor if you observe: Fever of 101 or Higher, Shortness of breath, Dizziness, Fainting spells, Chest pain Allergies/Adverse Reactions: Allergies Penicillins [PCN] Allergy (Verified 04/16/20 18:06) PT UNSURE OF REACTION Medications to take at Discharge NK 04/16/20 Primary Care Physician: Care Physician,No Primary [Primary Care Provider] - Please follow up with your Primary Care Physician in: 1-2 weeks establish with a primary care physician Test Results: Test results from this visit will be discussed in further detail at your follow- up appointment, if applicable.
--- NOTE | 2020-04-17 12:38 | DS.PCM_ITS ---
Discharge Date and Diagnosis - Problem List Patient Problems: Active and Suspected Problems Chest pain, unspecified (Acute) Acute kidney injury (Acute) Hypokalemia (Acute) Heat exhaustion (Acute) Date of Admission: 04/16/20 Date of Discharge: 04/17/20 - Primary Discharge Diagnosis Acute Problems: Active Problems Chest pain, unspecified (Acute) Acute kidney injury (Acute) Hypokalemia (Acute) Heat exhaustion (Acute) - Secondary Discharge Diagnosis Chronic Problems: Chronic Problems Asthma (Chronic) History of aortic valve replacement with bioprosthetic valve (Chronic) Churg-Geronimo syndrome (Chronic) Hospital Course and Treatment Operations: None Procedures: None Summary of Care Provided: The patient is a 50 year old M with past medical history of ulcerative colitis status post colectomy, Churg-Geronimo and AVR in 2000 who came to the ED on the evening of 04/16 with complaints of presyncope that happened on the day of admission. 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 He admits that he had not been drinking enough fluids and has been sweating a lot. He had been feeling fatigued and occasionally dizzy. He went to eat at a restaurant last evening and ordered beer and when he was not feeling well still, he ordered Mountain Dew. He had the feeling that he was going to pass out and a squad was called. When the EMS got there, he appeared to be diaphoretic. He also has chronic bloody diarrhea from his ulcerative colitis but doesn't f/u with anyone for any medical issues. He has 4-5 bowel movements a day. His vitals show temperature of 98.2 F, heart rate 99, blood pressure 108/68, respiratory to 29, oxygen saturation was 96% on room air. WBC count is 12.1, hemoglobin 14.3, platelet count 387, sodium 134, thousand 2.6, chloride 99, carbonate 23, BUN 25, creatinine 2.14. His previous creatinine in 2007 was 1.06. UA was slightly cloudy, ketones positive, nitrite negative, leukocyte esterase 25, WBC 0-5. Chest x-ray was negative for acute cardiopulmonary abnormality. He was admitted to PCU with his significant hypokalemia. He was hydrated with IVF and sCr dropped to 1.23 and his K was up to 3.4 with another 40 mEq given. He was able to ambulate around the room without issues. He was strongly encouraged to f/u with a PCP with his age and PMH and states that he will. He was discharged in stable condition to home. Patient Problems: Active and Suspected Problems Chest pain, unspecified (Acute) Acute kidney injury (Acute) Hypokalemia (Acute) Heat exhaustion (Acute) Subjective: Feeling much better. Hand cramping has resolved. Ambulated to the and was able to do so independently and feels like he is back to baseline where he was prior to admission. - Physical Exam Vitals/I&O's: Vital Signs Temp Pulse Resp BP Pulse Ox 98.1 F 78 16 126/78 H 95 04/17/20 08:15 04/17/20 08:15 04/17/20 08:15 04/17/20 08:15 04/17/20 08:15 Oxygen Delivery Method Room Air Weight: 129.1 kg Body Mass Index (BMI) 35.2 Finger Stick Blood Glucose 88 Intake and Output for Last 24 Hours 04/15/20 04/16/20 04/17/20 23:59 23:59 23:59 Intake Total 1300 / 1780 3100 / 3100 Balance 1300 / 1780 3100 / 3100 General: Alert, Oriented x3, Cooperative, No apparent distress, Well developed, Well nourished, - - Obese Middle aged white male sitting up in bed, watching TV, appears well HEENT: Atraumatic, PERRLA, EOMI, Normocephalic, EAC Clear Oral: Moist Mucosa, No Gingival or Mucosal Lesions/ Ulcerations, - - [place] 3 Neck: Supple, No Nodes, No Nuchal Rigidity, Trachea Midline, Thyroid Normal Size and Texture Lungs: Clear to auscultation, Normal air movement, No rhonchi, No wheeze, No rales Cardiovascular: Regular rate, Regular Rhythm, Normal S1, Normal S2, No Ectopic Activity, Murmur - 2/6 SM, No rub noted, No Gallop Abdomen: Bowel Sounds Present, Soft, Non Tender, Non-Distended, Obese, No hernias noted, - - old well healed incisions Extremities: No clubbing, No cyanosis, No edema, Peripheral Pulses Normal Skin: No rashes, No breakdown Musculoskeletal: No Tenderness to Palpation of Joints or Extremities, No Muscle Wasting Lymphatic: No Cervical, Supraclavicular, or Inguinal Adenopathy Neurological: Cranial nerves II-XII grossly intact, Deep Tendon Reflexes 2+/4 and Symmetrical, Neuro grossly intact, Motor Exam 5/5 strength throughout, Muscle tone normal, Sensory exam intact to light touch and pain, Coordination normal Psych/Mental Status: Normal Affect, Appropriate, Alert and oriented to time, place, person, mood and affect Microbiology Past 72 Hours 04/16/20 Unknown Stool Enteric Bacteriology - Final Laboratory Results 04/16/20 18:00: WBC 12.1 H, RBC 5.21, Hgb 14.3, Hct 44.7, MCV 85.8, MCH 27.4, MCHC 32.0, RDW Std Deviation 51.2 H, RDW Coeff of Paulo 16.4 H, Plt Count 387, MPV 10.6, Immature Gran % (Auto) 0.300, Neut % (Auto) 74.0 H, Lymph % (Auto) 12.7 L, [place] % (Auto) 6.5, Eos % (Auto) 5.8 H, Baso % (Auto) 0.7, Absolute Neuts (auto) 8.9 H, Absolute Lymphs (auto) 1.54, Nucleated RBC % 0 04/16/20 18:00: Sodium 134 L, Potassium 2.6 L*, Chloride 99, Carbon Dioxide 23.0, Anion Gap 12, BUN 25 H, Creatinine 2.14 H, Estim Creat Clear Calc 50.70, Est GFR (MDRD) Af Amer 42 L, Est GFR (MDRD) Non-Af 35 L, BUN/Creatinine Ratio 11.7, Glucose 181 H, Calcium 8.7, Troponin I < 0.015 04/16/20 18:00: Total Bilirubin 1.00, Direct Bilirubin 0.16, AST 63 H, ALT 66 H, Alkaline Phosphatase 194 H, Total Protein 9.5 H, Albumin 3.7, Globulin 5.8 H 04/16/20 18:00: Magnesium 2.0 04/16/20 19:15: Urine Color Yellow, Urine Clarity Sl. Cloudy, Urine pH 5.0, Ur Specific [place] 1.030, Urine Protein 100 H, Urine Glucose (UA) Normal, Urine Ketones 5 H, Urine Occult Blood 10 H, Urine Nitrite Negative, Urine Bilirubin 3 H, Urine Urobilinogen 4 H, Ur Leukocyte Esterase 25 H, Urine RBC 0-5 SEEN, Urine WBC 0-5 SEEN, Ur Squamous Epith Cells 0-5 SEEN, Amorphous Sediment 1+ URATE, Urine Bacteria 0 SEEN, Hyaline Casts 0-5 SEEN, Urine Mucus 0 SEEN 04/16/20 21:05: Troponin I < 0.015 04/17/20 00:17: Troponin I < 0.015 04/17/20 05:45: WBC 10.7, RBC 4.68, Hgb 12.8 L, Hct 41.3, MCV 88.2, MCH 27.4, MCHC 31.0 L, RDW Std Deviation 53.7 H, RDW Coeff of Paulo 17.1 H, Plt Count 313, MPV 10.1, Immature Gran % (Auto) 0.300, Neut % (Auto) 62.3, Lymph % (Auto) 16.3 L, [place] % (Auto) 10.0, Eos % (Auto) 10.3 H, Baso % (Auto) 0.8, Absolute Neuts (auto) 6.7, Absolute Lymphs (auto) 1.74, Nucleated RBC % 0 04/17/20 05:45: Sodium 136, Potassium 3.4 L, Chloride 102, Carbon Dioxide 27.0, Anion Gap 7, BUN 23 H, Creatinine 1.29, Estim Creat Clear Calc 84.11, Est GFR (MDRD) Af Amer 76, Est GFR (MDRD) Non-Af 63, BUN/Creatinine Ratio 17.8, Glucose 102, Calcium 8.0 L, Total Bilirubin 0.60, AST 41 H, ALT 55, Alkaline Phosphatase 140 H, Total Protein 8.1, Albumin 3.1 L, Globulin 5.0 H, Albumin/Globulin Ratio 0.6 L Current Medications Al Hydroxide/Mg Hydroxide (Mylanta Ii) 30 ml PO Q6H PRN PRN PRN Reason: Gastric Burning Albuterol Sulfate (Ventolin Aerosols) 2.5 mg INHALATION Q2H PRN PRN PRN Reason: SOB/Wheezing Sodium Chloride () 250 mls @ 15 mls/hr IV .[id number] PRN PRN Reason: Saline Flush Sodium Chloride () 250 mls @ 15 mls/hr IV .[id number] PRN PRN Reason: Additional IVPB Infusion Magnesium Hydroxide (Milk Of Magnesia) 30 ml PO DAILY PRN PRN PRN Reason: Constipation Ondansetron HCl (Zofran) 4 mg IV Q8H PRN PRN PRN Reason: NAUSEA/VOMITING Senna/Docusate Sodium (Senokot-S, Leticia-Colace) 2 tablet PO BID PRN PRN PRN Reason: Constipation Sodium Chloride () 10 - 40 ml IV UD PRN PRN Reason: SALINE FLUSH Discharge Activity: Return to Normal Activity, No Restrictions Call your doctor if you observe: Fever of 101 or Higher, Shortness of breath, Dizziness, Fainting spells, Chest pain Home Medications: Medications to take at Discharge NK 04/16/20 Primary Care Physician: Care Physician,No Primary [Primary Care Provider] - Please follow up with your Primary Care Physician in: 1-2 weeks establish with a primary care physician Medical Necessity - Tobacco Use Smoking Status: Never smoker Tobacco Use: Non-smoker Meaningful Use Info Meaningful Use Diagnoses (Choose all that apply): None applicable Inpatient E&M: [id number] [facility] Hosp
[2020-04-17 14:10] VITALS: BP 112/76; PULSE 84; RESP 16; TEMP 36.7; O2SAT 96
== END 2020-04-17 14:46 | disposition home or self-care (01) | DRG 313 ==
LOC: ED 19:25 → PCU 20:00
PROVIDERS: Admitting Provider Internal Medicine; Emergency Provider Emergency Medicine; Visit Provider Internal Medicine
DX: R07.89 Other chest pain (principal); N17.9 Acute kidney failure, unspecified; M30.1 Polyarteritis with lung involvement [Churg-Strauss]; E87.6 Hypokalemia; X30.XXXA Exposure to excessive natural heat, initial encounter; T67.5XXA Heat exhaustion, unspecified, initial encounter; Z95.3 Presence of xenogenic heart valve; J45.909 Unspecified asthma, uncomplicated
CPT/HCPCS: 36415; 71045; 80048; 80053; 80076; 81001; 83735; 84484; 85025; 87506; 93005; 99285; J7030; A4216; J2405

== ENCOUNTER 2020-06-25 10:15 | Emergency (ER) | payer SELFPAY ==
[2020-04-16 20:23] VITALS: BMI 35.2
[2020-06-25 10:16] VITALS: BP 133/95; PULSE 82; RESP 18; TEMP 36.3; O2SAT 98; BMI 35.3
--- NOTE | 2020-06-25 10:29 | CT_ITS ---
STUDY: CT CERVICAL SPINE WITHOUT CONTRAST REASON FOR EXAM: Male, 50 years old. PARISH X 2-3 WEEKS. PAIN TOO RT SHOULDER/BACK. NUMBNESS/TINGLING LT HAND. RADIATION DOSAGE (If Supplied By Facility): CTDIvol = ( 28.32 ) mGy, DLP = ( 631.21 ) mGycm TECHNIQUE: High resolution transaxial imaging was performed without contrast material. Sagittal and coronal images were reconstructed. Individualized dose optimization techniques were used for this CT. COMPARISON: None FINDINGS: Normal craniovertebral junction. Normal anterior atlantoaxial articulation. Normal odontoid process. There is straightening of the normal cervical lordosis. Normal vertebral bodies and posterior osseous elements. C2-3: Normal endplates. Normal disc height and morphology. Normal central canal and intervertebral neuroforamina. C3-4: Normal endplates. Normal disc height and morphology. Normal central canal and intervertebral neuroforamina. C4-5: Normal endplates. Normal disc height and morphology. Normal central canal and intervertebral neuroforamina. C5-6: Mild degree of disc space narrowing. Mild degree of central posterior spondylosis causing minimal deformity of the thecal sac. C6-7: Mild to moderate degree of disc space narrowing. No evidence of disc herniation. C7-T1: Normal endplates. Normal disc height and morphology. Normal central canal and intervertebral neuroforamina. Normal visualized soft tissue structures. CT/Spine Cervical without Contras IMPRESSION: Multilevel degenerative changes, as described above. Electronically Signed: Judah Montgomery, at 11:18 EDT , Service support ,
--- NOTE | 2020-06-25 10:29 | CT_ITS ---
STUDY: CT BRAIN WITHOUT CONTRAST REASON FOR EXAM: Male, 50 years old. PARISH X 2-3 WEEKS. PAIN TOO RT SHOULDER/BACK. NUMBNESS/TINGLING LT HAND RADIATION DOSAGE (If Supplied By Facility): CTDIvol = ( 44.99 ) mGy, DLP = ( 846.73 ) mGycm TECHNIQUE: Transaxial CT imaging of the brain was performed without administration of intravenous contrast material. Individualized dose optimization techniques were used for this CT. COMPARISON: Comparison is made with prior study dated 09/27/2018. FINDINGS: Normal soft tissue structures. Normal calvarium. Normal size ventricles and extra-axial spaces for the patient''s age. Normal white matter tracts of the cerebral hemispheres. Normal basal ganglia and thalami. Normal brainstem. Normal cerebellum. There is no intracranial hemorrhage. There are no findings of an acute ischemic infarction. Minimal mucosal thickening along the medial wall of the right maxillary sinus. CT/Brain/Head without Contrast IMPRESSION: Normal unenhanced CT scan of the brain. Electronically Signed: Judah Montgomery, at 11:17 EDT , Service support ,
[2020-06-25] MEDS: DiphenhydrAMINE 50 MG/ML Syringe 25 MG IV (10:49)
[2020-06-25] MEDS: proCHLORPERazine 10 MG/2 ML Vial IV (10:49)
--- NOTE | 2020-06-25 11:28 | ED.VISSUMM ---
- ER Visit Summary Date of Service: 06/25/20 Chief Complaint: Headache History of Present Illness: The patient is a 50 M with a headache for the past 3 weeks. The pain is in his right occipital area and radiates into his right trapezius. Worse with touch and movement. He has some tingling paresthesias, but they are in the left hand, all over his hand. No other sensory changes. No weakness. No facial droop. No vision changes. No trouble with balance or vertigo. No speech changes. No history of stroke. He has a history of acute kidney injury, asthma, and Churg-Geronimo vasculitis. No fevers or recent illness. No skin changes. Physical Examination: Afebrile and vital signs are unremarkable. Head and neck normal inspection. He has focal tenderness to his right occipital region at the base of his occiput. Overlying skin appears normal. There is diffuse tenderness to his right trapezius muscle. Shoulder and the remainder of his upper extremities are unremarkable except for some subjective paresthesias over his entire left hand. He is neurovascularly intact otherwise. Heart regular. Lungs clear. Abdomen soft. Skin appears normal. Leg exam unremarkable. Test Results: CT brain and cervical spine showed chronic changes only. Nothing acute. Emergency Department Course and Treatment: Patient was treated with Compazine and Benadryl while awaiting results. CT brain and cervical spine were unremarkable. I suspect this is occipital neuralgia, myofascial pain. Thing to suggest referred pain. Patient will be treated with Toradol. He will be prescribed anti-inflammatories and muscle relaxers. Return for any neurologic symptoms, new or worsening issues. Treatment Plan: As above Disposition: Discharge Impression: Headache, right trapezius pain, left hand paresthesias This note was generated with [employer] Home[employer] software. It may contain incorrect words, spelling, and punctuation that were not noted in review of the chart prior to signing ED Disposition - Plan for ED Patient: Referrals: Care Physician,No Primary [Primary Care Provider] -
--- NOTE | 2020-06-25 11:32 | ED.DEP ---
ED Disposition - Plan for ED Patient: Instructions: Self-Care for Headaches Prescriptions: cycloBENZAPRine HCl [Flexeril] 10 mg PO TID PRN #20 tab PRN Reason: Muscle Spasm Prescription Printed Naproxen [Naprosyn] 500 mg PO BID PRN #20 tab Prescription Printed Referrals: Kandis Rebolledo [NON-STAFF] -
[2020-06-25] MEDS: Ketorolac 30 MG/ML Syringe IV (11:43)
[2020-06-25 11:47] VITALS: BP 131/87; PULSE 81; RESP 18; O2SAT 99
== END 2020-06-25 11:47 | disposition home or self-care (01) ==
LOC: ED 11:19
PROVIDERS: Emergency Provider Emergency Medicine
DX: R51 Headache (principal); R20.2 Paresthesia of skin
CPT/HCPCS: 70450; 72125; 96374; 96375; 99282; A4216

== ENCOUNTER → 2023-02-21 | Outpatient (CLI) | payer SELFPAY ==
[2023-02-21 15:21] LABS: Hematocrit 31.4 % (40-54); Hemoglobin 9.1 g/dL (13.0-16.5); Mean Corpuscular Hgb 22.1 pg (27.0-32.0); Mean Corpuscular Volume 76.4 fL (80-94); Mean Platelet Vol. 9.6 fl (6.2-12.0); Platelet Count 486 K/mm3 (150-450); RBC Distribution Width CV 17.3 % (11.6-14.6); RBC Distribution Width SD 47.5 fl (35.1-43.9); Red Blood Count 4.11 M/mm3 (4.6-6.2); White Blood Count 12.6 K/mm3 (4.4-11.0)
[2023-02-21 15:51] LABS: Iron 23 ug/dL (65-175)
== END | disposition home or self-care (01) ==
PROVIDERS: Referring Provider Internal Medicine Gastroenterology; Visit Provider Internal Medicine Gastroenterology
DX: K92.2 Gastrointestinal hemorrhage, unspecified (principal)
CPT/HCPCS: 36415; 83540; 85027; 86140

== ENCOUNTER → 2023-04-25 | Outpatient (CLI) | payer SELFPAY ==
[2023-04-25 15:42] LABS: Hematocrit 34.9 % (40-54); Hemoglobin 10.2 g/dL (13.0-16.5)
== END | disposition home or self-care (01) ==
LOC: MTLAB 11:21
PROVIDERS: Referring Provider Internal Medicine Gastroenterology; Visit Provider Internal Medicine Gastroenterology
DX: K51.90 Ulcerative colitis, unspecified, without complications (principal)
CPT/HCPCS: 36415; 85014; 85018; 86140

== ENCOUNTER 2024-11-22 13:45 | Inpatient (IN) | payer OTHER, SELFPAY ==
[2024-11-22] VITALS (17 sets, daily range): BP systolic 93–115; BP diastolic 57–78; PULSE 88–111; RESP 16–26; TEMP 36.1–37.1; O2SAT 92–100; BMI 28.1; BMI 27.8
--- NOTE | 2024-11-22 14:11 | EKG12_ITS ---
Test Reason : GENERAL Blood Pressure : */* mmHG Vent. Rate : 92 BPM Atrial Rate : * BPM P-R Int : * ms QRS Dur : 124 ms QT Int : 404 ms P-R-T Axes : * -60 -5 degrees QTcB Int : 499 ms Atrial fibrillation Left anterior fascicular block Abnormal ECG Confirmed by SKYE HOOK, FRED ([id number]), editor book KEVIN JARA ([id number]) on 11/24/2024 8:21:31 AM Referred By: Confirmed By: FRED CHEUNG MD
--- NOTE | 2024-11-22 14:15 | CT_ITS ---
PROCEDURE: CTA CHEST W/WO CONTRAST REASON FOR EXAM: 54-year-old male, shortness of breath, fatigue and low hemoglobin. History of prior aortic valve replacement and Churg-Geronimo syndrome. TECHNIQUE: CTA imaging of the chest with intravenous contrast. 3D reconstructions. CONTRAST: Administered. COMPARISON: None available. FINDINGS: Hardware: None. 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 No hilar or axillary lymphadenopathy. Heart: Severe cardiomegaly with trace pericardial fluid. Prior median sternotomy and aortic valve replacement. Minimal coronary artery calcifications. Dilation of the main pulmonary trunk measuring up to 4.3 cm. RV/LV Diameter Ratio: N/A Thoracic Aorta: No thoracic aortic aneurysm or dissection. Pulmonary Vessels: Visualization is limited by motion artifact. No evidence of acute pulmonary emboli through the major subsegmental branches. Most Proximal Level of Embolus (if embolus present): N/A Lungs and Airways: The central airways are patent. Visualization is limited by motion artifact. Low lung volumes bilaterally. Dilation of the bilateral distal pulmonary arteries. No large focal consolidation, pneumothorax or pleural effusion Bones: Mild pectus excavatum deformity. Chronic bilateral rib fracture deformities. CT/CTA Chest W/WO Contrast IMPRESSION: 1. No acute pulmonary embolism within the proximal pulmonary arteries. 2. Severe cardiomegaly. Dilation of the main pulmonary trunk, which can be see n with pulmonary artery hypertension. 3. 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 One or more dose reduction techniques were used (e.g., Automated exposure contr ol, adjustment of the mA and/or kV according to patient size, use of iterative reconstruction technique). Reading Location: [id number]
--- NOTE | 2024-11-22 14:18 | EDS_ITS ---
HPI <MARIA LUISA Miranda - Last Filed: 11/22/24 18:38> History of Present Illness Chief Complaint: Abn Labs Narrative Narrative: Patient is a 54-year-old male with history of leukemia, bicuspid aortic valve replacement, asthma who does not take any prescription drugs daily presenting to the [facility] apartment for multiple complaints. Patient did get called by [facility] to go to the [facility] department secondary to for a hemoglobin of 5.7. Patient states he does have blood in his stool but this is chronic secondary to ulcerative colitis. Patient states that he has bilateral leg swelling, his abdomen has been getting more swollen, he is more short of breath, and states he is just generalized fatigue. He does state that he does drink beer occasionally, however states he has no energy. Denies any fever chills nausea or vomiting. PFSH <MARIA LUISA Miranda - Last Filed: 11/22/24 18:38> [facility] Medical History (Updated 11/22/24 @ 18:[address] Mark Isaacs, DO) Nonrheumatic aortic (valve) stenosis Bicuspid aortic valve Heat exhaustion Hypokalemia Acute kidney injury Chest pain, unspecified Colitis UTI (urinary tract infection) Asthma Churg-Geronimo syndrome Home Medications ?Medication ?Instructions ?Recorded ?Last Taken ?Type guaifenesin 1,200 mg tablet, 1,200 mg PO DAILY 5 11/22/24 History extended release 12 hr (Mucinex) ivermectin 3 mg tablet 3 mg PO DAILY 11/22/2411/22 History Allergy/AdvReac Type Severity Reaction Status Date / Time acetaminophen Allergy Mild Itching Verified 11/22/24 13:48 Penicillins (PCN) Allergy PT UNSURE Verified 06/25/20 10:16 OF REACTION Family History (Updated 06/10/20 @ 08:51 by Khalida Blount) Other Heart disease Surgical History (Updated 06/10/20 @ 08:56 by Khalida Blount) Hx laparoscopic cholecystectomy History of colectomy History of right and left heart catheterization (LHC) (~07/12/01) History of aortic valve replacement with bioprosthetic valve Social History (Updated 06/10/20 @ 08:51 by Khalida Blount) Smoking Status: Never smoker alcohol intake: current details: occasional substance use type: does not use ROS <CARLOS MirandaC - Last Filed: 11/22/24 18:38> ROS ED ROS Narrative Constitutional: Negative for fever, chills, weight loss. Positive for weakness Eyes: Negative for vision loss, vision change, double vision ENT: Negative for any sore throat, ear pain, congestion Cardiovascular: Negative for any chest pain, tightness, palpitations Respiratory: Negative for any cough, sputum production, hemoptysis. Positive for dyspnea, dyspnea on exertion, orthopnea Gastrointestinal: Negative for any nausea, vomiting, diarrhea, constipation, blood in vomit. Positive for abdominal bloating, blood in stool : Negative for any urinary frequency, dysuria, retention, blood in urine Muscle skeletal: Negative for any neck pain, back pain Neurological: Negative for any headache, syncope. Positive for dizziness Skin: Negative for any rashes, itching, abrasions, lacerations Psychiatric: Negative for any depression, anxiety, stress, suicidal ideation, homicidal ideation Hematologic: Negative for any excessive bruising, easy bleeding EXAM <MARIA LUISA Miranda - Last Filed: 11/22/24 18:38> Physical Exam Narrative Exam Narrative: Vital signs reviewed. Patient slightly tachycardic, the patient's heart rate is irregular, alert and orient x 4 HEET: Head normocephalic atraumatic, TMs clear bilaterally. Posterior pharynx is clear, dry mucous membranes. Nares clear bilaterally. Neck: Supple with no lymphadenopathy or tenderness. No signs of meningismus. Cardiac: Irregular rate positive for murmur, no gallops or rubs, equal peripheral pulses bilaterally. Respiratory: Lungs clear to auscultation bilaterally diminished lung sounds at the bases. No chest tenderness. Abdomen: Patient's abdomen slight distended, positive umbilical hernia that appears hard, this could be chronic. Hypoactive bowel sounds. No abdominal bruit or pulsatile masses. No hepatosplenomegaly Extremities: +3 pitting edema bilateral lower extremities, no signs of gross trauma or deformity. Active full range of motion of all extremities. Neuro: Cranial nerves II through XII intact, no focal neurological deficits. Skin: Clean dry and intact with no rash, purpura, petechiae, vesicles or pustules. Backs/flank: No CVA tenderness, no midline spinal tenderness, no deformity. Psych: Normal mood and affect. No SI, HI or acute psychosis. Rectal: Rectal exam was completed with female nurse president and chief commercial officer Dayana. There was no gross bleeding, sherif blood, maroon-colored stool. Rectal vault was empty, patient did have light brown stool on my finger. Const Vital Signs: 11/22/24 13:46 11/22/24 15:46 11/22/24 16:04 Temperature 96.9 F L 98.3 F Temperature Source Temporal Oral Pulse Rate 111 H 88 90 Respiratory Rate 19 H 24 H 26 H Blood Pressure 104/66 102/71 105/78 Blood Pressure Mean 78 81 87 Blood Pressure Source Pulse Ox 100 100 100 Oxygen Delivery Method Room Air Room Air 11/22/24 16:19 11/22/24 17:00 11/22/24 17:19 Temperature 98.6 F 98.5 F Temperature Source Oral Oral Pulse Rate 101 H 103 H 100 Respiratory Rate 24 H 26 H Blood Pressure 115/75 101/59 L 110/68 Blood Pressure Mean 88 73 82 Blood Pressure Source Monitor Pulse Ox 97 100 92 Oxygen Delivery Method Room Air 11/22/24 18:19 Temperature 98.7 F Temperature Source Oral Pulse Rate 99 Respiratory Rate 25 H Blood Pressure 105/66 Blood Pressure Mean 79 Blood Pressure Source Pulse Ox 100 Oxygen Delivery Method Positive unkempt General Appearance ED: unkempt Psych Appearance: unkempt <Dr. Mark Isaacs, DO - Last Filed: 11/22/24 18:39> Physical Exam Const Vital Signs: 11/22/24 13:46 11/22/24 15:46 11/22/24 16:04 Temperature 96.9 F L 98.3 F Temperature Source Temporal Oral Pulse Rate 111 H 88 90 Respiratory Rate 19 H 24 H 26 H Blood Pressure 104/66 102/71 105/78 Blood Pressure Mean 78 81 87 Blood Pressure Source Pulse Ox 100 100 100 Oxygen Delivery Method Room Air Room Air 11/22/24 16:19 11/22/24 17:00 11/22/24 17:19 Temperature 98.6 F 98.5 F Temperature Source Oral Oral Pulse Rate 101 H 103 H 100 Respiratory Rate 24 H 26 H Blood Pressure 115/75 101/59 L 110/68 Blood Pressure Mean 88 73 82 Blood Pressure Source Monitor Pulse Ox 97 100 92 Oxygen Delivery Method Room Air 11/22/24 18:19 Temperature 98.7 F Temperature Source Oral Pulse Rate 99 Respiratory Rate 25 H Blood Pressure 105/66 Blood Pressure Mean 79 Blood Pressure Source Pulse Ox 100 Oxygen Delivery Method [facility] <Deny Elias MARIA LUISA - Last Filed: 11/22/24 18:38> [facility] Lab Data Labs: Laboratory Results - last 24 hr 11/22/24 11/22/24 13:59 16:30 WBC 10.0 RBC 3.17 L Hgb 5.8 L* Hct 22.2 L MCV 70.0 L MCH 18.3 L MCHC 26.1 L RDW Std Deviation 48.7 H RDW Coeff of Paulo 19.4 H Plt Count 395 MPV 8.8 Immature Gran % (Auto) 0.500 Neut % (Auto) 76.4 H Lymph % (Auto) 10.7 L [place] % (Auto) 8.5 Eos % (Auto) 3.3 Baso % (Auto) 0.6 Absolute Neuts (auto) 7.6 Absolute Lymphs (auto) 1.07 Nucleated RBC % 0 [address] Review May foll Polychromasia RARE Hypochromasia 2+ PT 16.0 H INR 1.3 Sodium 136 Potassium 3.5 Chloride 106 Carbon Dioxide 24.0 Anion Gap 6 BUN 12 Creatinine 0.88 Estim Creat Clear Calc 124.23 Est GFR (MDRD) Af Amer 116 Est GFR (MDRD) Non-Af 96 BUN/Creatinine Ratio 13.7 Glucose 72 L Lactic Acid 1.2 Calcium 8.2 L Total Bilirubin 1.30 H Direct Bilirubin 0.87 H AST 49 H ALT 34 Alkaline Phosphatase 693 H Troponin I High Sens 18 B-Natriuretic Peptide 503.1 H Total Protein 8.7 H Albumin 2.1 L Globulin 6.6 H Lipase 26 L Urine Color Yellow Urine Clarity Clear Urine pH 5.0 Ur Specific Fulda 1.015 Urine Protein 30 H Urine Glucose (UA) Normal Urine Ketones Negative Urine Occult Blood 10 H Urine Nitrite Negative Urine Bilirubin 1 H Urine Urobilinogen 4 H Ur Leukocyte Esterase 25 H Urine RBC 0 SEEN Urine WBC 0 SEEN Ur Squamous Epith Cells 0 SEEN Urine Bacteria 0 SEEN Urine Mucus 0 SEEN Blood Type A POSITIVE Antibody Screen NEGATIVE Crossmatch See Detail Radiography Diagnostic Testing: Clinical Impression(s) from Imaging Studies Chest CTA 11/22/24 14:15 IMPRESSION: 1. No acute pulmonary embolism within the proximal pulmonary arteries. 2. Severe cardiomegaly. Dilation of the main pulmonary trunk, which can be seen with pulmonary artery hypertension. 3. 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 One or more dose reduction techniques were used (e.g., Automated exposure control, adjustment of the mA and/or kV according to patient size, use of iterative reconstruction technique). Reading Location: [facility] Abdomen/Pelvis CT 11/22/24 14:18 IMPRESSION: 1. Prior colectomy and ileo-anal pouch creation, with intramural gas and wall thickening of the distal ileum, most compatible with pneumatosis and necrosis of the anastomosis. 2. Ill-defined area of wall irregularity along the right lateral bowel with adjacent ascites, incompletely evaluated without the use of oral contrast. However findings are most concerning for bowel perforation. Correlation with prior abdominal imaging and clinical examination recommended. 3. Left hepatic lobe ill-defined hypodensities, most compatible with cholangiocarcinoma, however additional differential diagnoses include infection and autoimmune diseases. Correlation with prior abd ominal imaging recommended. If none available, CT or MRI abdomen (liver protocol) may be obtained for further evaluation. 4. Diffuse retroperitoneal, periportal, mesenteric and pelvic lymphadenopathy, which may be secondary to patient's known history of granulomatosis with polyangiitis. Correlation with prior imaging recommended as neoplasm can not be excluded. One or more dose reduction techniques were used (e.g., Automated exposure control, adjustment of the mA and/or kV according to patient size, use of iterative reconstruction technique). Reading Location: [facility] EKG Atrial fibrillation: Attestation: I personally reviewed and interpreted this EKG as follows: Comments: Atrial fibrillation with a rate of 92 bpm, QRS duration 124 ms, no acute ST elevation, no acute infarct noted. Treatment and Re-Evaluation :: Differential diagnosis includes however is not limited to: EDI, metastasis, leukemia, failure to thrive, abdominal mass, electrolyte abnormality, acute on chronic anemia Patient does look disheveled, patient does look like he does not feel well. Patient slightly tachycardic however is heart rate appears to be irregular. Patient is alert and orient x 4. Patient received a full workup. Patient will receive a CTA of the chest along with a CT scan of the abdomen pelvis, lab values including BNP, troponin, CBC BMP liver panel lipase as well as a PT/INR. Lactic acid will be obtained. Patient stool occult was sent. Patient will likely need to be admitted to hospital. I immediately typed and crossed the patient for 2 units of packed red blood cells. Patient's CT scan of the abdomen pelvis shows prior colectomy and ileoanal pouch with intramural gas and wall thickening of the distal ileum, most compatible with pneumatosis and necrosis of the and anastomosis. Ill-defined area of wall irregularity along the right lateral bowel with adjacent ascites, incompletely evaluated with the use of oral contrast. However findings are most concerning for bowel perforation. Left hepatic lobe ill-defined hypodensities more compatible with cholangiocarcinoma, however additional differential diagnose include infection artery disease. Diffuse retroperitoneal, periportal, mesenteric and pelvic lymphadenopathy which may be secondary to patient's known history of granulomatosis and probably pharyngitis. Secondary to this finding, I will reach out to surgery. Spoke with surgery, they recommended that the patient get evaluated by GI. I will speak with Dr. Gustafson. At this time, patient does not meet any emergency surgery. I spoke with Dr. Gustafson, he requests an MRCP however patient be admitted to medicine. Spoke with Dr. Lazaro. Patient will be admitted here. Patient remained stable. <Dr. Mark Isaacs, DO - Last Filed: 11/22/24 18:39> [facility] Narrative Medical decision making narrative: I have personally performed a face to face assessment of the patient and have reviewed the IBIS Note. I performed a substantive portion of the visit including all aspects of the following. My john findings include: History is [patient presents with complaint of not feeling well. Patient states that he went to a doctor's office to establish yesterday because he is not been feeling well for months. He had some basic lab work and today he was called and told that he needed to go to the emergency department because he had a hemoglobin of 5.7. Patient states that he lives like a hermit and really has not had any medical care. Early 1999' he had aortic valve replacement with a bovine valve. Patient not anticoagulated. He says he has frequent blood in his stool. He tells me he is lost over 100 pounds in the last year.] Exam is [HEAMAURY, EOMI. Cranial nerves II through XII grossly intact. TMs clear. Mucous membranes moist. No adenopathy. Cardiovascular-regular rate and rhythm without murmur or ectopy Lungs-clear to auscultation, chest wall stable without crepitus or subcu emphysema Abdomen-normoactive bowel sounds, soft, nontender, no rebound or rigidity, no peritoneal signs. Abdomen is protuberant but nontender to exam Extremities-intact ?4, normal range of motion, normal pulses, atraumatic] patient has +3 edema both lower extremities Medical Decison Making [patient presents to the emergency department with low hemoglobin. Patient seen with physician assistant therapy aide who did rectal exam and he was Hemoccult positive but had brown stool. He was ordered type and cross for 2 units packed red cells. CT imaging will be obtained of the chest and abdomen given his weight loss and protuberant abdomen as well as bloody stools.] CBC with differential obtained showed a white count of 10.0 with hemoglobin 5.8 and platelet count of 395. Chemistries unremarkable. BUN 12 and creatinine 0.88. Does have elevated total bilirubin of 1.3 with an AST of 49 and ALT of 34. Alk phos elevated 693. Lipase was 26. Urinalysis unremarkable. CT scan of the chest with contrast showed no acute findings. CT scan of the abdomen pelvis with IV contrast showed abnormalities involving the anastomosis of the J-pouch with concern for pneumatosis and possible bowel perforation. Also noted were changes in the liver with concern for cholangiocarcinoma. PA spoke with general surgeon on-call Dr. Live who evaluated the images and asked that we also discussed case with Dr. Gustafson. We spoke with Dr. Gustafson and then spoke with the hospitalist. It was recommended we obtain a MRCP during the patient's stay. Patient will be admitted in guarded condition Other additions or changes: [None] Lab Data Attestation: I reviewed the patient's lab results. Labs: Laboratory Results - last 24 hr 11/22/24 11/22/24 13:59 16:30 WBC 10.0 RBC 3.17 L Hgb 5.8 L* Hct 22.2 L MCV 70.0 L MCH 18.3 L MCHC 26.1 L RDW Std Deviation 48.7 H RDW Coeff of Paulo 19.4 H Plt Count 395 MPV 8.8 Immature Gran % (Auto) 0.500 Neut % (Auto) 76.4 H Lymph % (Auto) 10.7 L [place] % (Auto) 8.5 Eos % (Auto) 3.3 Baso % (Auto) 0.6 Absolute Neuts (auto) 7.6 Absolute Lymphs (auto) 1.07 Nucleated RBC % 0 Diff Path Review May foll Polychromasia RARE Hypochromasia 2+ PT 16.0 H INR 1.3 Sodium 136 Potassium 3.5 Chloride 106 Carbon Dioxide 24.0 Anion Gap 6 BUN 12 Creatinine 0.88 Estim Creat Clear Calc 124.23 Est GFR (MDRD) Af Amer 116 Est GFR (MDRD) Non-Af 96 BUN/Creatinine Ratio 13.7 Glucose 72 L Lactic Acid 1.2 Calcium 8.2 L Total Bilirubin 1.30 H Direct Bilirubin 0.87 H AST 49 H ALT 34 Alkaline Phosphatase 693 H Troponin I High Sens 18 B-Natriuretic Peptide 503.1 H Total Protein 8.7 H Albumin 2.1 L Globulin 6.6 H Lipase 26 L Urine Color Yellow Urine Clarity Clear Urine pH 5.0 Ur Specific [place] 1.015 Urine Protein 30 H Urine Glucose (UA) Normal Urine Ketones Negative Urine Occult Blood 10 H Urine Nitrite Negative Urine Bilirubin 1 H Urine Urobilinogen 4 H Ur Leukocyte Esterase 25 H Urine RBC 0 SEEN Urine WBC 0 SEEN Ur Squamous Epith Cells 0 SEEN Urine Bacteria 0 SEEN Urine Mucus 0 SEEN Blood Type A POSITIVE Antibody Screen NEGATIVE Crossmatch See Detail Radiography Diagnostic Testing: Clinical Impression(s) from Imaging Studies Chest CTA 11/22/24 14:15 IMPRESSION: 1. No acute pulmonary embolism within the proximal pulmonary arteries. 2. Severe cardiomegaly. Dilation of the main pulmonary trunk, which can be seen with pulmonary artery hypertension. 3. 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 One or more dose reduction techniques were used (e.g., Automated exposure control, adjustment of the mA and/or kV according to patient size, use of iterative reconstruction technique). Reading Location: [facility] Abdomen/Pelvis CT 11/22/24 14:18 IMPRESSION: 1. Prior colectomy and ileo-anal pouch creation, with intramural gas and wall thickening of the distal ileum, most compatible with pneumatosis and necrosis of the anastomosis. 2. Ill-defined area of wall irregularity along the right lateral bowel with adjacent ascites, incompletely evaluated without the use of oral contrast. However findings are most concerning for bowel perforation. Correlation with prior abdominal imaging and clinical examination recommended. 3. Left hepatic lobe ill-defined hypodensities, most compatible with c holangiocarcinoma, however additional differential diagnoses include infection and autoimmune diseases. Correlation with prior abdominal imaging recommended. If none available, CT or MRI abdomen (liver protocol) may be obtained for further evaluation. 4. Diffuse retroperitoneal, periportal, mesenteric and pelvic lymphadenopathy, which may be secondary to patient's known history of granulomatosis with polyangiitis. Correlation with prior imaging recommended as neoplasm can not be excluded. One or more dose reduction techniques were used (e.g., Automated exposure control, adjustment of the mA and/or kV according to patient size, use of iterative reconstruction technique). Reading Location: [facility] Discharge Plan Triage Chief Complaint: Abn Labs ED Midlevel Provider: Deny Elias ED Provider: Mark Isaacs Dx/Rx/DC Orders Clinical Impression: Acute anemia, Acute GI bleeding, HUANG (dyspnea on exertion), Atrial fibrillation, Liver mass, Ascites, Cholangiocarcinoma Prescriptions: No Action ivermectin 3 mg tablet 3 mg PO DAILY Patient Comments: PT UNSURE OF STRENGTH. STATES HE GETS FROM THE [facility]. guaifenesin [Mucinex] 1,200 mg tablet extended release 12hr 1,200 mg PO DAILY Primary Care Provider: Care Physician,No Primary Referrals: Care Physician,No Primary [Primary Care Provider] - Print Language: Occitan Disposition Disposition: Acute Care Hospital [facility] [place] [facility]
--- NOTE | 2024-11-22 14:18 | CT_ITS ---
PROCEDURE: ABDOMEN/PELVIS W IV CONT ONLY REASON FOR EXAM: 54-year-old male, abdominal pain, history of granulomatosis with polyangiitis, general fatigue, low hemoglobin, prior colectomy with J-pouch. TECHNIQUE: Abdomen and pelvis CT with intravenous contrast. No oral contrast. IV CONTRAST: Administered. COMPARISON: None. FINDINGS: Liver: Severe hepatomegaly with multifocal hypodensities within the left hepatic lobe. The major portal veins are patent and markedly enlarged. Mild right hepatic lobe biliary ductal dilation. Gallbladder: Prior cholecystectomy. Spleen: Mild splenomegaly. Pancreas: Mildly atrophic. Adrenals: Unremarkable. Kidneys: Bilateral renal hypodensities, likely cysts. No hydronephrosis or nephrolithiasis. Bladder: Mildly distended and unremarkable. Reproductive Organs: Dystrophic calcifications within the prostate gland. Bowel: Prior colectomy and ileo-anal pouch creation. Punctate intramural gas and wall thickening of the distal ileum just proximal to the anal sphincter. Ill-defined area of wall irregularity along the right lateral bowel wall with adjacent ascites (coronal image 48). Marked distention of the stomach and several anterior abdominal bowel loops, incompletely evaluated without the use of oral contrast. No large volume pneumoperitoneum. Lymph nodes: Diffuse retroperitoneal, periportal, mesenteric and bilateral pelvic lymphadenopathy. Vasculature: Ectasia of the infrarenal IVC. Bones: Bilateral pelvic bone islands. No aggressive osseous lesions. CT/Abdomen/Pelvis W IV Cont ONLY IMPRESSION: 1. Prior colectomy and ileo-anal pouch creation, with intramural gas and wall t hickening of the distal ileum, most compatible with pneumatosis and necrosis of the anastomosis. 2. Ill-defined area of wall irregularity along the right lateral bowel with adj acent ascites, incompletely evaluated without the use of oral contrast. However findings are most concerning for bowel perforati on. Correlation with prior abdominal imaging and clinical examination recommended. 3. Left hepatic lobe ill-defined hypodensities, most compatible with cholangioc arcinoma, however additional differential diagnoses include infection and autoimmune diseases. Correlation with prior ab dominal imaging recommended. If none available, CT or MRI abdomen (liver protocol) may be obtained for further evaluation. 4. Diffuse retroperitoneal, periportal, mesenteric and pelvic lymphadenopathy, which may be secondary to patient's known history of granulomatosis with polyangiitis. Correlation with prior imaging recommende d as neoplasm can not be excluded. One or more dose reduction techniques were used (e.g., Automated exposure contr ol, adjustment of the mA and/or kV according to patient size, use of iterative reconstruction technique). Reading Location: [id number]
[2024-11-22 14:27] LABS: Absolute Lymphocyte Count 1.07 X10^3/uL (0.83-4.51); Absolute Neutrophil Count 7.6 X10^3/uL (2.0-7.7); Basophil# 0.06 X10^3/uL; Basophil% 0.6 % (0-1); Eosinophil# 0.33 X10^3/uL; Eosinophils% 3.3 % (0-5); Hematocrit 22.2 % (40-54); Lymphocyte # 1.07 X10^3/ul (0.83-4.51); Lymphocyte % 10.7 % (19-41); Mean Corp Hgb Conc 26.1 g/dL (32-36); Mean Corpuscular Hgb 18.3 pg (27.0-32.0); Mean Platelet Vol. 8.8 fl (6.2-12.0); Monocyte# 0.85 X10^3/uL; Monocyte% 8.5 % (0-10); NRBC Flagged by Analyzer 0 % (0-5); Neutrophil # 7.62 X10^3/uL (2.7-7.7); Neutrophil % 76.4 % (47-70); POSITIVE COUNT YES; Platelet Count 395 K/mm3 (150-450); RBC Distribution Width CV 19.4 % (11.6-14.6); RBC Distribution Width SD 48.7 fl (35.1-43.9); Red Blood Count 3.17 M/mm3 (4.6-6.2)
[2024-11-22 14:30] LABS: Differential Indicated SCAN CRITERIA MET; Hemoglobin 5.8 g/dL (13.0-16.5)
[2024-11-22 14:41] LABS: International Normalized Ratio 1.3
[2024-11-22 14:49] LABS: BNP,B-Type NATRIURETIC PEPTIDE 503.1 pg/mL (0-100)
[2024-11-22 14:54] LABS: Hypochromasia 2+; Polychromasia RARE
[2024-11-22 15:01] LABS: AST(SGOT) 49 U/L (15-37); Alanine Aminotransfer ALT/SGPT 34 U/L (16-61); Albumin, Serum 2.1 g/dL (3.2-5.0); Alkaline Phosphatase 693 U/L (45-117); Anion Gap 6 (5-15); BUN 12 mg/dL (7-18); BUN/Creat Ratio 13.7 RATIO (10-20); Bilirubin, Direct 0.87 mg/dL (0.00-0.30); Calcium,Total 8.2 mg/dL (8.5-10.1); Chloride 106 mmol/L (98-107); Creatinine, Serum 0.88 mg/dL (0.70-1.30); EST Glomerular Filtration Rate 96 mL/min (>60); Est Glom Filt Rate - Afr Amer 116 mL/min (>60); Estimated Creatinine Clearance 124.23 ml/min; Globulin 6.6 g/dL (2.2-4.2); Glucose 72 mg/dL (74-106); Lactic Acid 1.2 mmol/L (0.4-1.9); Lipase 26 U/L (73-393); Potassium 3.5 mmol/L (3.5-5.1); Protein, Total 8.7 g/dL (6.4-8.2); Sodium Level 136 mmol/L (136-145); Troponin-I HS 18 pg/mL (3.0-78.0)
[2024-11-22 16:36] LABS: Bacteria 0 SEEN /hpf (None Seen); Mucous, Urine 0 SEEN /hpf (<or=2+); Squamous Epithelial Cells - UA 0 SEEN /hpf (0-5); White Blood Cells 0 SEEN /hpf (0-5)
[2024-11-22 16:37] LABS: Color, Urine Yellow (Yellow); Glucose, Dipstick Normal (Normal); Ketone-Dipstick Negative (Negative); Leukocyte Esterase-Dipstick 25 /ul (Negative); Nitrite-Dipstick Negative (Negative); Occult Blood-Urine 10 /ul (Negative); Protein-Dipstick 30 mg/dl (Negative); Specific Gravity, Urine 1.015 (1.002-1.030); Urine Clarity Clear (Clear); Urine Urobilinogen 4 mg/dl (Normal)
[2024-11-22 16:38] LABS: Urine Bilirubin Dipstick 1 mg/dL (Negative)
[2024-11-22 16:43] LABS: Red Blood Cells-Urine 0 SEEN /hpf (0-5)
[2024-11-22] MEDS: metroNIDAZOLE 500 MG/100 ML BAG 100 MG IV (18:15)
--- NOTE | 2024-11-22 18:29 | HP.PCM.HOS_ITS ---
HPI - General General Date of Admission: 11/22/24 Date of Service: 11/22/24 Chief Complaint: Abnormal lab HPI Narrative YUNI BRONSON, is a 54 M who presented to the emergency department [facility] on 11/22/2024 with a chief complaint of abnormal labs. The patient got a call from [facility] informing him to go to the emergency department due to a hemoglobin of 5.7. The patient indicates he does have blood in his stool but this is chronic secondary to his ulcerative colitis. He is previous total colectomy and only has small bowel. He states he has chronic diarrhea. He states recently he is lost a significant amount of weight and is also developed swelling in his lower extremities over the past several months. He is somewhat of a poor historian and sounds like he has not followed up medically in some time. He has a known history of bicuspid aortic valve with a replacement and history of Churg-Geronimo disease. He states he has had significant fatigue and decreased exertional tolerance over the past several months. Has had no fever or chills, no nausea or vomiting. He does complain of some shortness of breath with exertion. Vital signs on presentation showed temperature of 96.9, heart rate 111, respiratory rate was 19, blood pressure was 104/66 and pulse ox was 100% on room air. CBC showed a microcytic anemia with a hemoglobin of 5.8 and an MCV of 70. Platelet count was normal. Coags were unremarkable. Chemistry panel was unremarkable. Bilirubin was 1.3 with a direct of 0.87 and alk phos of 693. His lipase was 26. His BNP was 530. UA is unremarkable for any acute findings. A CTA of his chest was performed and showed no acute pulmonary emboli within the main pulmonary arteries, dilation of the main pulmonary trunk with severe cardiomegaly and dilation of the bilateral distal pulmonary arteries with enlarged mediastinal lymph nodes consistent with history of granulomatosis with polyangiitis. CT of the abdomen pelvis showed previous colectomy with an ileoanal pouch, intramural gas with wall thickening concerning for pneumatosis and necrosis of the anastomosis, bowel wall thickening with adjacent ascites that initially was concerning for bowel perforation, ill-defined hypodensities in the left hepatic lobe concerning for cholangiocarcinoma and diffuse retroperitoneal lymphadenopathy consistent with the patient's history of granulomatosis with polyangiitis. EKG shows rate controlled atrial fibrillation with no ST-T wave changes concerning for acute ischemia. Given the findings on the CT of the abdomen pelvis, the emergency department physician discussed the case with Dr. Mayorga from general surgery. She was at the imaging and felt that the read on the CT was overcalled and no urgent or emergent surgical intervention was needed however GI evaluation was done FOR[facility] Medical History Ulcerative colitis Nonrheumatic aortic (valve) stenosis Bicuspid aortic valve Heat exhaustion Hypokalemia Acute kidney injury Chest pain, unspecified UTI (urinary tract infection) Asthma Churg-Geronimo syndrome Home Medications ?Medication ?Instructions ?Recorded ?Last Taken ?Type guaifenesin 1,200 mg tablet, 1,200 mg PO DAILY 5 11/22/24 History extended release 12 hr (Mucinex) ivermectin 3 mg tablet 3 mg PO DAILY 11/22/2411/22 History Allergy/AdvReac Type Severity Reaction Status Date / Time acetaminophen Allergy Mild Itching Verified 11/22/24 13:48 Penicillins (PCN) Allergy PT UNSURE Verified 06/25/20 10:16 OF REACTION Family History Other Heart disease Surgical History Hx laparoscopic cholecystectomy History of colectomy History of right and left heart catheterization (LHC) (~07/12/01) History of aortic valve replacement with bioprosthetic valve Social History Smoking Status: Never smoker alcohol intake: current details: occasional substance use type: does not use ROS Constitutional Constitutional: Reports change in weight, fatigue and weakness; Denies anorexia, chills, fever(s), malaise, night sweats or other Eyes Eyes: Denies blurry vision, change in eye color, change in vision, discharge from eye(s), double vision, erythema, eye pain, loss of vision or other ENT HEENT: Denies abnormal hearing, dysphagia, ear pain, epistaxis, headache(s), hearing loss, nasal congestion, nasal discharge, post nasal drip, sinus pressure, sore throat or other Cardiovascular Cardiovascular: Reports dyspnea on exertion, edema and orthopnea; Denies chest pain, claudication, lightheadedness, palpitations, paroxysmal nocturnal dyspnea, rapid heart rate, syncope or other Respiratory/Chest Respiratory/Chest: Reports dyspnea and shortness of breath with exertion; Denies cough, excessive phlegm production, hemoptysis, productive cough, shortness of breath at rest, wheezing or other Gastrointestinal Gastrointestinal: Reports abdominal pain, hematochezia and melena; Denies coffee ground emesis, constipation, diarrhea, dyspepsia, hematemesis, loose stools, nausea, vomiting or other Genitourinary Genitourinary: Denies burning urination, difficulty urinating, dysuria, hematuria, nocturia, urinary frequency, urinary hesitancy, urinary incontinence, urinary urgency or other Musculoskeletal Musculoskeletal: Denies arthralgias, back pain, joint pain, joint stiffness, joint swelling, myalgias, neck pain or other Neurologic Neurologic: Denies abnormal gait, abnormal speech, confusion, disequilibrium, dizziness, focal weakness, headache(s), numbness, paresthesias, seizure-like activity, seizures, syncope, tingling, tremor(s) or other Psychiatric Psychiatric: Denies anxiety, depression, homicidal ideation, suicidal ideation or other Endocrine Endocrinology: Denies change in body appearance, cold intolerance, excessive sweating, heat intolerance, polydipsia, polyuria or other Hematologic/Lymphatic Hematologic/Lymphatic: Denies anemia, easy bleeding, easy bruising, lymphadenopathy or other Allergic/Immunologic Allergic/Immunologic: Denies rhinitis, hives, eczemia, asthma or other Vital Signs Vital Signs Vital Signs: 11/22/24 13:46 11/22/24 15:46 11/22/24 16:04 Temperature 96.9 F L 98.3 F Temperature Source Temporal Oral Pulse Rate 111 H 88 90 Respiratory Rate 19 H 24 H 26 H Blood Pressure 104/66 102/71 105/78 Blood Pressure Mean 78 81 87 Blood Pressure Source Pulse Ox 100 100 100 Oxygen Delivery Method Room Air Room Air 11/22/24 16:19 11/22/24 17:00 11/22/24 17:19 Temperature 98.6 F 98.5 F Temperature Source Oral Oral Pulse Rate 101 H 103 H 100 Respiratory Rate 24 H 26 H Blood Pressure 115/75 101/59 L 110/68 Blood Pressure Mean 88 73 82 Blood Pressure Source Monitor Pulse Ox 97 100 92 Oxygen Delivery Method Room Air Weight Weight: 102.058 kg Body Mass Index (BMI) 28.1 Physical Exam Const alert, oriented x3 and well nourished; Negative for average body habitus or healthy appearing Constitutional Narrative: Chronically ill-appearing white male, sitting up in bed, dyspneic on conversation, does not appear toxic, pleasant General Appearance: cooperative HEENT normocephalic, head/scalp atraumatic and moist oral mucous membranes HEENT Narrative: Mild hearing loss, Mallampati 3, no thrush Eyes EOMs intact bilaterally; Negative for conjunctivae normal Eyes Narrative: Marked conjunctiva pallor bilaterally, no scleral icterus Neck supple and No no JVD Neck Narrative: Trachea midline, no thyroid enlargement, significant JVD noted Resp No normal respiratory effort, no retractions, no use of accessory muscles and No clear to auscultation bilaterally Resp Narrative: Crackles in bilateral bases, dyspneic on conversation Auscultation: crackles; Negative for rhonchi or wheezes Cardio regular rate, S1 normal heart sound, no rub, no gallops and no clicks; Negative for regular rhythm, S2 normal heart sound or no murmurs Cardio Narrative: Irregular irregular rhythm, soft S2, 4 out of 6 systolic murmur GI normal to inspection, nondistended, normoactive bowel sounds and soft to palpation; Negative for non-tender GI Narrative: Tenderness in the right upper quadrant Extremity Extremity Narrative: 3+ bilateral lower extremity edema, no cyanosis or clubbing Neuro oriented x3, moves all extremities and no focal motor deficits Speech: speech normal Psych affect normal Psych Narrative: Very pleasant Results Lab / Micro Data 11/22/24 13:59 11/22/24 13:59 Labs: Laboratory Results - last 24 hr 11/22/24 13:59: WBC 10.0, RBC 3.17 L, Hgb 5.8 L*, Hct 22.2 L, MCV 70.0 L, MCH 18.3 L, MCHC 26.1 L, RDW Std Deviation 48.7 H, RDW Coeff of Paulo 19.4 H, Plt Count 395, MPV 8.8, Immature Gran % (Auto) 0.500, Neut % (Auto) 76.4 H, Lymph % (Auto) 10.7 L, [place] % (Auto) 8.5, Eos % (Auto) 3.3, Baso % (Auto) 0.6, Absolute Neuts (auto) 7.6, Absolute Lymphs (auto) 1.07, Nucleated RBC % 0, Diff Path Review May foll, Polychromasia RARE, Hypochromasia 2+, PT 16.0 H, INR 1.3, Sodium 136, Potassium 3.5, Chloride 106, Carbon Dioxide 24.0, Anion Gap 6, BUN 12, Creatinine 0.88, Estim Creat Clear Calc 124.23, Est GFR (MDRD) Af Amer 116, Est GFR (MDRD) Non-Af 96, BUN/Creatinine Ratio 13.7, Glucose 72 L, Lactic Acid 1.2, Calcium 8.2 L, Total Bilirubin 1.30 H, Direct Bilirubin 0.87 H, AST 49 H, ALT 34, Alkaline Phosphatase 693 H, Troponin I High Sens 18, B-Natriuretic Peptide 503.1 H, Total Protein 8.7 H, Albumin 2.1 L, Globulin 6.6 H, Lipase 26 L , Blood Type A POSITIVE, Antibody Screen NEGATIVE, Crossmatch See Detail 11/22/24 16:30: Urine Color Yellow, Urine Clarity Clear, Urine pH 5.0, Ur Specific [place] 1.015, Urine Protein 30 H, Urine Glucose (UA) Normal, Urine Ketones Negative, Urine Occult Blood 10 H, Urine Nitrite Negative, Urine Bilirubin 1 H, Urine Urobilinogen 4 H, Ur Leukocyte Esterase 25 H, Urine RBC 0 SEEN, Urine WBC 0 SEEN, Ur Squamous Epith Cells 0 SEEN, Urine Bacteria 0 SEEN, Urine Mucus 0 SEEN Micro: Microbiology 11/22/24 13:59 Mucosa - Nose SARS-CoV-2, Influenza & RSV (PCR) - Final 11/22/24 13:59 Stool Stool Occult Blood (SEDRICK) - Final Occult Blood Positive Imaging Radiology Impression Chest CTA 11/22/24 14:15 IMPRESSION: 1. No acute pulmonary embolism within the proximal pulmonary arteries. 2. Severe cardiomegaly. Dilation of the main pulmonary trunk, which can be seen with pulmonary artery hypertension. 3. 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 One or more dose reduction techniques were used (e.g., Automated exposure control, adjustment of the mA and/or kV according to patient size, use of iterative reconstruction technique). Reading Location: [facility] Abdomen/Pelvis CT 11/22/24 14:18 IMPRESSION: 1. Prior colectomy and ileo-anal pouch creation, with intramural gas and wall thickening of the distal ileum, most compatible with pneumatosis and necrosis of the anastomosis. 2. Ill-defined area of wall irregularity along the right lateral bowel with adjacent ascites, incompletely evaluated without the use of oral contrast. However findings are most concerning for bowel perforation. Correlation with prior abdominal imaging and clinical examination recommended. 3. Left hepatic lobe ill-defined hypodensities, most compatible with cholangiocarcinoma, however additional differential diagnoses include infection and autoimmune diseases. Correlation with prior abdominal imaging recommended. If none available, CT or MRI abdomen (liver protocol) may be obtained for further evaluation. 4. Diffuse retroperitoneal, periportal, mesenteric and pelvic lymphadenopathy, which may be secondary to patient's known history of granulomatosis with polyangiitis. Correlation with prior imaging recommended as neoplasm can not be excluded. One or more dose reduction techniques were used (e.g., Automated exposure control, adjustment of the mA and/or kV according to patient size, use of iterative reconstruction technique). Reading Location: [facility] Assessment & Plan Assessment/Plan (1) Liver mass: (2) Acute anemia: (3) Acute GI bleeding: (4) Dyspnea on exertion: (5) Fatigue: (6) Lower extremity edema: PLAN: Plan Severe acute microcytic anemia -Highly suspect iron deficiency -Patient with positive guaiac stool and history of ulcerative colitis -Status post complete colectomy -Transfuse 4 units packed red blood cells due to aortic valve disease with diuretics in between -Protonix 40 p.o. twice daily -Every 6 hour hemoglobin -Suspect this has been a slow drop over time given his symptoms -Consult gastroenterology Lower extremity edema with BNP elevation -patient with history of aortic valve replacement with bioprosthetic aortic valve -Check echocardiogram -Bumex due to low albumin 2 mg IV twice daily -Lower extremity Dopplers -Fluid restriction -Sodium restriction New onset A-fib -Rate is controlled -As needed metoprolol 2.5 mg IV push for heart rate greater than 110 -Anticoagulation is contraindicated due to the above -Monitor on telemetry -Check echocardiogram -Check a.m. TSH Liver mass -Per read suggestive of cholangiocarcinoma -Check MRCP -GI consultation Abnormal CT of the abdomen pelvis -Case was discussed with GS (Dr. Live and she did not feel that this was pneumatosis with necrosis of the anastomosis -Suggested GI consultation -Follow clinically -MRCP is pending Dyspnea on exertion -Suspect multifactorial from severe anemia plus suspected heart failure -Patient does have cardiac exam can consistent with worsening aortic valve disease -Check echocardiogram -Transfuse for anemia History of ulcerative colitis -GI consultation for anemia as noted above -Patient with previous complete colectomy History of Churg-Geronimo syndrome -Patient is not currently taking any medication for this -Highly recommend rheumatology will follow-up after discharge History of bicuspid aortic valve disease -Previous bioprosthetic valve replacement -Check echocardiogram DVT prophylaxis -SCDs -Chemoprophylaxis contraindicated due to GI bleeding on presentation CODE STATUS -Full code as verified on admission Charges/Coding Visit Charges Inpatient E&M: 92691 Init Hosp L3
[2024-11-22] MEDS: Furosemide 40 MG/4 ML Vial IV (18:54)
--- NOTE | 2024-11-22 19:20 | CASEMGMT ---
Care Management Face to Face with patient for initial transition planning/care coordination assessment in the ED.? This health technical writer introduced self and role at [facility]. Patient alert and oriented. Patient willing to participate in assessment and is able to answer all questions appropriately.? Care providers, pharmacy, and demographics verified. Admitting Diagnosis: Cholangiocarcinoma Other diagnosis history: Including but not limited to: Hx of Leukemia, Bicuspid Valve Replacement, Asthma, Ulcerative Colitis, and Churg-Geronimo Syndrome. PCP: Not established. Specialists: None Preferred Pharmacy: [facility] Insurance: No insurance. Patient stated his income exceeds the limits for Medicaid eligibility and insurance is ?too expensive for patient to secure on his own. Prescription Benefit: None Living Will/HPOA: ?No, but interested. LNOK: , no children.? Patient has a sister who lives in [place] who is a support. Living Arrangements: Patient currently lives alone in a two story farm house. Patient has 13 inside stairs and 3 outside stairs which patient stated he is able to navigate with minimal difficulty. Transportation: Patient drives. DME: [employer] HHC: None previously and none needed at this time per patient. SNF/Rehab: No history of either. Community Resources: None. Behavioral Health History: Denied. Patient goals: Patient wishes to discharge home, denies need for home health care at this time. Patient denies any further needs or concerns at this time. Disposition Plan: admission to acute; RN CM/SW to follow for discharge planning needs that may arise. Maria M Oconnor, LEGAL AID, NUCLEAR SUPERVISING OPERATOR
[2024-11-22] MEDS: Ciprofloxacin 400 MG/200 ML BAG 200 MG IV (19:31)
--- NOTE | 2024-11-22 19:52 | ECHOD_ITS ---
Reason For Study Reason For Study: Procedure This was a 2D Doppler, Color Flow transthoracic echocardiogram. Exam performed portable in patient room. Left Ventricle Normal LV size. Severe concentric left ventricular hypertrophy. The left ventricular ejection fraction is 65 %. Stage 1 diastolic dysfunction. Right Ventricle Normal right ventricle. Atria There is severe biatrial dilatation. Bubble contrast study is negative for PFO/ASD. Mitral Valve Mild (1+) mitral valve insufficiency. Tricuspid Valve Mild tricuspid valve insufficiency. Right ventricular systolic pressure estimated to be 40 mmHg. Aortic Valve Moderate to severe calcification of the bioprosthetic aortic valve. Severe aortic valve stenosis. Mean peak gradient 55 mmHg. Moderate aortic valve regurgitation. Pulmonic Valve The pulmonic valve is not well visualized. Trivial pulmonic valve insufficiency. Great Vessels Mildly dilated aortic root. Pericardium/Pleural No pericardial effusion. Medication Performed a rapid injection of agitated mix of 9 cc saline and 1cc air to assess for atrial septal defect. MMode/2D Measurements & Calculations LVIDd: 6.0 cm IVSd: 1.7 cm LVOT diam: 2.0 cm LVIDs: 3.3 cm LVPWd: 1.9 cm RVDd: 3.8 cm FS: 45.7 % LVOT area: 3.1 cm2 LAV(MOD-bp): 177.2 ml LVAd ap4: 48.3 cm2 SV(MOD-sp4): 113.7 ml LAV(MOD-bp) Indexed: 78.5 ml/m2 LVLd ap4: 9.8 cm SI(MOD-sp4): 50.4 ml/m2 LAV(MOD-sp2): 176.9 ml EDV(MOD-sp4): 197.3 ml LAV(MOD-sp4): 162.3 ml EDV(sp4-el): 203.0 ml LVAs ap4: 29.1 cm2 LVLs ap4: 8.5 cm ESV(MOD-sp4): 83.6 ml ESV(sp4-el): 84.7 ml EF(MOD-sp4): 57.6 % EF(sp4-el): 58.3 % SV(sp4-el): 118.4 ml LA A4 area: 42.7 cm2 LA dimension(2D): 5.7 cm RA A4 area: 43.7 cm2 Doppler Measurements & Calculations Ao V2 max: 485.0 cm/sec AI max azeem: 510.3 cm/sec PA V2 max: 114.0 cm/sec Ao max P.2 mmHg AI max P.3 mmHg PA V2 mean: 82.7 cm/sec Ao V2 mean: 350.2 cm/sec AI dec slope: 434.4 cm/sec2 Ao mean P.7 mmHg AI P1/2t: 344.0 msec Ao V2 VTI: 113.8 cm PI end-d azeem: 134.9 cm/sec TR max azeem: 251.1 cm/sec TR max P.2 mmHg ECHO/Echo Complete Interpretation Summary Severe concentric left ventricular hypertrophy. The left ventricular ejection fraction is 65 %. Stage 1 diastolic dysfunction. There is severe biatrial dilatation. Mild (1+) mitral valve insufficiency. Mild tricuspid valve insufficiency. Right ventricular systolic pressure estimated to be 40 mmHg. Moderate to severe calcification of the bioprosthetic aortic valve. Severe aort ic valve stenosis. Mean peak gradient 55 mmHg. Moderate aortic valve regurgitation. Mildly dilated aortic root. Ordering Physician: Dinah Lazaro Referring Physician: OLIMPIA PCP Performed By: Estefany Quinones RCS
[2024-11-22 20:20] LABS: Hematocrit 22.7 % (40-54); Hemoglobin 6.2 g/dL (13.0-16.5)
--- NOTE | 2024-11-22 20:48 | VDLE_ITS ---
Reason For Study Reason For Study: BLE SWELLING RIGHT LEFT GSV is normal. GSV is normal. CFV is compressible, spontaneous, competent and CFV is compressible, spontaneous, competent, and demonstrates pulsatile venous flow. demonstrates pulsatile venous flow. FV is compressible, spontaneous, competent and FV is compressible, spontaneous, competent and demonstrates pulsatile venous flow. demonstrates pulsatile venous flow. POP V is compressible, spontaneous, competent and POP V is compressible, spontaneous, competent and demonstrates pulsatile venous flow. demonstrates pulsatile venous flow. T/P Trunk is compressible. T/P Trunk is compressible. PTV is compressible. PTV is compressible. RT PerV is compressible. LT PerV is compressible. Procedure This is a venous duplex using B-mode, color flow and spectral Doppler. Exam performed portable in patient room. The exam was diagnostic. A preliminary report was called and/or faxed to PCU senior manufacturing engineer Jody. VL/Venous Duplex US - Dannie Extrem Interpretation Summary Deep veins of the lower extremities are bilaterally patent and compressible seg mentally. There is no evidence of deep vein thrombosis on either side. Valvular competence appears intact within the p roximal deep venous systems bilaterally. The great saphenous veins appear bilaterally patent and compressible segmentall y. Pulsatile flow is noted in the deep venous system bilaterally, which may be indicative of elevated central venous p ressure (i.e. congestive heart failure, pulmonary hypertension, etc.). Clinical correlation is advised. Ordering Physician: Dinah Lazaro Performed By: Eyal Victor RVT
[2024-11-22] MEDS: Pantoprazole Sodium 40 MG in 0.9% Normal Saline (100mL MB+) 100 ML 330 MG IV (21:09)
[2024-11-23] VITALS (17 sets, daily range): BP systolic 91–107; BP diastolic 57–76; PULSE 84–100; RESP 14–20; TEMP 35.7–36.9; O2SAT 95–99; BMI 27.8
[2024-11-23] MEDS: Albumin Human 25% (100 mL) 25 GM/100 ML BAG IV (05:58)
[2024-11-23] MEDS: 0.9% Saline Lock 10 ML Syringe IV ×3 (06:00→21:05)
[2024-11-23 06:19] LABS: Absolute Lymphocyte Count 0.99 X10^3/uL (0.83-4.51); Absolute Neutrophil Count 6.9 X10^3/uL (2.0-7.7); Basophil# 0.07 X10^3/uL; Basophil% 0.8 % (0-1); Eosinophil# 0.46 X10^3/uL; Eosinophils% 4.9 % (0-5); Hemoglobin 6.8 g/dL (13.0-16.5); Lymphocyte # 0.99 X10^3/ul (0.83-4.51); Lymphocyte % 10.6 % (19-41); Mean Corp Hgb Conc 28.3 g/dL (32-36); Mean Corpuscular Hgb 20.3 pg (27.0-32.0); Mean Corpuscular Volume 71.6 fL (80-94); Mean Platelet Vol. 8.5 fl (6.2-12.0); Monocyte% 9.7 % (0-10); NRBC Flagged by Analyzer 0 % (0-5); Neutrophil # 6.87 X10^3/uL (2.7-7.7); Neutrophil % 73.8 % (47-70); POSITIVE MORPHOLOGY YES; Platelet Count 295 K/mm3 (150-450); RBC Distribution Width CV 21.5 % (11.6-14.6); RBC Distribution Width SD 55.9 fl (35.1-43.9); Red Blood Count 3.35 M/mm3 (4.6-6.2); White Blood Count 9.3 K/mm3 (4.4-11.0)
[2024-11-23 07:17] LABS: ALB/GLOB Ratio 0.4 RATIO (0.9-2.4); AST(SGOT) 39 U/L (15-37); Alanine Aminotransfer ALT/SGPT 26 U/L (16-61); Alkaline Phosphatase 586 U/L (45-117); Anion Gap 7 (5-15); BUN 12 mg/dL (7-18); BUN/Creat Ratio 14.7 RATIO (10-20); Calcium,Total 7.7 mg/dL (8.5-10.1); Chloride 108 mmol/L (98-107); Creatinine, Serum 0.82 mg/dL (0.70-1.30); EST Glomerular Filtration Rate 104 mL/min (>60); Est Glom Filt Rate - Afr Amer 126 mL/min (>60); Estimated Creatinine Clearance 123.09 ml/min; Globulin 5.5 g/dL (2.2-4.2); Glucose 110 mg/dL (74-106); Magnesium 1.5 mg/dL (1.6-2.6); Phosphorus 3.1 mg/dL (2.5-4.9); Potassium 3.2 mmol/L (3.5-5.1); Protein, Total 7.5 g/dL (6.4-8.2); Sodium Level 136 mmol/L (136-145)
[2024-11-23] MEDS: Pantoprazole Sodium 40 MG in 0.9% Normal Saline (100mL MB+) 100 ML 330 MG IV ×2 (08:55→21:05)
--- NOTE | 2024-11-23 11:30 | PN.HOSP_ITS ---
Subjective Subjective Doing well, no issues overnight Objective Data Objective Data Vital Signs: Vital Signs Temp Pulse Resp BP Pulse Ox O2 Del Method 98.5 F 92 16 94/66 99 Room Air 11/23/24 10:40 11/23/24 10:40 11/23/24 10:40 11/23/24 10:40 11/23/24 10:40 11/23/24 10:40 Oxygen Delivery Method Room Air Weight: 222 lb 14.197 oz Body Mass Index (BMI) 27.8 Intake & Output: Intake and Output for Last 24 Hours 11/22/24 11/23/24 11/24/24 03:59 03:59 03:59 Intake Total 1876 / 1876 830 / 830 Output Total 1125 / 1125 150 / 150 Balance 751 / 751 680 / 680 Lab / Micro Data 11/23/24 06:11 11/23/24 06:11 Labs: Laboratory Results - last 24 hr 11/22/24 13:55: Crossmatch See Detail 11/22/24 13:55: Crossmatch See Detail 11/22/24 13:59: WBC 10.0, RBC 3.17 L, Hgb 5.8 L*, Hct 22.2 L, MCV 70.0 L, MCH 18.3 L, MCHC 26.1 L, RDW Std Deviation 48.7 H, RDW Coeff of Paulo 19.4 H, Plt Count 395, MPV 8.8, Immature Gran % (Auto) 0.500, Neut % (Auto) 76.4 H, Lymph % (Auto) 10.7 L, Reagan % (Auto) 8.5, Eos % (Auto) 3.3, Baso % (Auto) 0.6, Absolute Neuts (auto) 7.6, Absolute Lymphs (auto) 1.07, Nucleated RBC % 0, Diff Path Review May foll, Polychromasia RARE, Hypochromasia 2+, PT 16.0 H, INR 1.3, Sodium 136, Potassium 3.5, Chloride 106, Carbon Dioxide 24.0, Anion Gap 6, BUN 12, Creatinine 0.88, Estim Creat Clear Calc 124.23, Est GFR (MDRD) Af Amer 116, Est GFR (MDRD) Non-Af 96, BUN/Creatinine Ratio 13.7, Glucose 72 L, Lactic Acid 1.2, Calcium 8.2 L, Total Bilirubin 1.30 H, Direct Bilirubin 0.87 H, AST 49 H, ALT 34, Alkaline Phosphatase 693 H, Troponin I High Sens 18, B-Natriuretic Peptide 503.1 H, Total Protein 8.7 H, Albumin 2.1 L, Globulin 6.6 H, Lipase 26 L , Blood Type A POSITIVE, Antibody Screen NEGATIVE, Crossmatch See Detail 11/22/24 16:30: Urine Color Yellow, Urine Clarity Clear, Urine pH 5.0, Ur Specific Cameron 1.015, Urine Protein 30 H, Urine Glucose (UA) Normal, Urine Ketones Negative, Urine Occult Blood 10 H, Urine Nitrite Negative, Urine Bilirubin 1 H, Urine Urobilinogen 4 H, Ur Leukocyte Esterase 25 H, Urine RBC 0 SEEN, Urine WBC 0 SEEN, Ur Squamous Epith Cells 0 SEEN, Urine Bacteria 0 SEEN, Urine Mucus 0 SEEN 11/22/24 20:10: Hgb 6.2 L, Hct 22.7 L 11/23/24 06:11: WBC 9.3, RBC 3.35 L, Hgb 6.8 L, Hct 24.0 L, MCV 71.6 L, MCH 20.3 L, MCHC 28.3 L D, RDW Std Deviation 55.9 H, RDW Coeff of Paulo 21.5 H, Plt Count 295, MPV 8.5, Immature Gran % (Auto) 0.200, Neut % (Auto) 73.8 H, Lymph % (Auto) 10.6 L, Reagan % (Auto) 9.7, Eos % (Auto) 4.9, Baso % (Auto) 0.8, Absolute Neuts (auto) 6.9, Absolute Lymphs (auto) 0.99, Nucleated RBC % 0, Sodium 136, P otassium 3.2 L, Chloride 108 H, Carbon Dioxide 22.0, Anion Gap 7, BUN 12, Creatinine 0.82, Estim Creat Clear Calc 123.09, Est GFR (MDRD) Af Amer 126, Est GFR (MDRD) Non-Af 104, BUN/Creatinine Ratio 14.7, Glucose 110 H, Calcium 7.7 L, Phosphorus 3.1, Magnesium 1.5 L, Total Bilirubin 1.20 H, AST 39 H, ALT 26, A lkaline Phosphatase 586 H, Total Protein 7.5, Albumin 2.0 L, Globulin 5.5 H, A lbumin/Globulin Ratio 0.4 L, TSH 7.280 H Micro: Microbiology 11/22/24 13:59 Mucosa - Nose SARS-CoV-2, Influenza & RSV (PCR) - Final 11/22/24 13:59 Stool Stool Occult Blood (SEDRICK) - Final Occult Blood Positive Radiography Diagnostic Testing: Radiology Impression Chest CTA 11/22/24 14:15 IMPRESSION: 1. No acute pulmonary embolism within the proximal pulmonary arteries. 2. Severe cardiomegaly. Dilation of the main pulmonary trunk, which can be seen with pulmonary artery hypertension. 3. 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 One or more dose reduction techniques were used (e.g., Automated exposure control, adjustment of the mA and/or kV according to patient size, use of iterative reconstruction technique). Reading Location: [facility] Abdomen/Pelvis CT 11/22/24 14:18 IMPRESSION: 1. Prior colectomy and ileo-anal pouch creation, with intramural gas and wall thickening of the distal ileum, most compatible with pneumatosis and necrosis of the anastomosis. 2. Ill-defined area of wall irregularity along the right lateral bowel with adjacent ascites, incompletely evaluated without the use of oral contrast. However findings are most concerning for bowel perforation. Correlation with prior abdominal imaging and clinical examination recommended. 3. Left hepatic lobe ill-defined hypodensities, most compatible with cholangiocarcinoma, however additional differential diagnoses include infection and autoimmune diseases. Correlation with prior abdominal imaging recommended. If none available, CT or MRI abdomen (liver protocol) may be obtained for further evaluation. 4. Diffuse retroperitoneal, periportal, mesenteric and pelvic lymphadenopathy, which may be secondary to patient's known history of granulomatosis with polyangiitis. Correlation with prior imaging recommended as neoplasm can not be excluded. One or more dose reduction techniques were used (e.g., Automated exposure control, adjustment of the mA and/or kV according to patient size, use of iterative reconstruction technique). Reading Location: [facility] Physical Exam Narrative General: Alert, Oriented x3, Cooperative, No apparent distress HEENT: Atraumatic, PERRLA, EOMI, Normocephalic Oral: Moist Mucosa Neck: Supple, No JVD Lungs: Diminished, Normal air movement, No rhonchi, No wheeze, No rales Cardiovascular: Irregular rate and rhythm, normal S1, Normal S2, murmur Abdomen: Soft, Non Tender, slightly distended, No Hepato-splenomegaly Extremities: Edema, Capillary Refill Less than 3 Seconds Skin: No rashes, No breakdown Musculoskeletal: No Tenderness to Palpation of Joints or Extremities Neurological: No focal neurological deficits, Motor Exam 5/5 strength throughout, Sensory exam intact to light touch and pain Psych/Mental Status: Normal Affect, Appropriate Assessment & Plan Assessment/Plan (1) Liver mass: (2) Acute anemia: (3) Acute GI bleeding: (4) Dyspnea on exertion: (5) Fatigue: (6) Lower extremity edema: PLAN: Plan 1. Acute blood loss anemia complicated by iron deficiency anemia ? Continue with blood transfusions ? Appreciate GIs assistance ? She does have a history of ulcerative colitis status post J-pouch ? Continue with PPI ? Blood pressures are soft we will continue with Bumex but will monitor and adjust as necessary 2. New onset A-fib/history of bicuspid aortic valve replacement ? Hold anticoagulation secondary to his GI bleed ? Echocardiogram is pending ? TSH is elevated ? Continue with IV metoprolol 3. New liver mass ? Could be cholangiocarcinoma ? 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
[2024-11-23 13:00] LABS: Hematocrit 26.9 % (40-54); Hemoglobin 8.1 g/dL (13.0-16.5)
[2024-11-23] MEDS: Magnesium Sulfate 2 GM in Dextrose 5%-Water (100mL Bag) 100 ML IV (13:28)
--- NOTE | 2024-11-23 13:44 | EX.PCM.CON.G ---
HPI Consult Data Date of Consult: 11/23/24 HPI Narrative Reason for Consultation: Anemia and abnormal imaging HPI Narrative: DENY BRONSON, is a 54 M who presented to the emergency department [facility] on 11/22/2024 with a chief complaint of abnormal labs. The patient got a call from [facility] informing him to go to the emergency department due to a hemoglobin of 5.7. The patient indicates he does have blood in his stool but this is chronic secondary to his ulcerative colitis. He is previous total colectomy and only has small bowel. He states he has chronic diarrhea. He states recently he is lost a significant amount of weight and is also developed swelling in his lower extremities over the past several months. He has a known history of bicuspid aortic valve with a replacement and history of Churg-Geronimo disease. He states he has had significant fatigue and decreased exertional tolerance over the past several months. Has had no fever or chills, no nausea or vomiting. He does complain of some shortness of breath with exertion. CBC showed a microcytic anemia with a hemoglobin of 5.8 and an MCV of 70. Platelet count was normal. Coags were unremarkable. Chemistry panel was unremarkable. Bilirubin was 1.3 with a direct of 0.87 and alk phos of 693. His lipase was 26. His BNP was 530. UA is unremarkable for any acute findings. A CTA of his chest was performed and showed no acute pulmonary emboli within the main pulmonary arteries, dilation of the main pulmonary trunk with severe cardiomegaly and dilation of the bilateral distal pulmonary arteries with enlarged mediastinal lymph nodes consistent with history of granulomatosis with polyangiitis. CT of the abdomen pelvis showed previous colectomy with an ileoanal pouch, intramural gas with wall thickening concerning for pneumatosis and necrosis of the anastomosis, bowel wall thickening with adjacent ascites that initially was concerning for bowel perforation, ill-defined hypodensities in the left hepatic lobe concerning for cholangiocarcinoma and diffuse retroperitoneal lymphadenopathy consistent with the patient's history of granulomatosis with polyangiitis. EKG shows rate controlled atrial fibrillation with no ST-T wave changes concerning for acute ischemia. The emergency department physician discussed the case with general surgery. She looked at the CT was overcalled and said there was no surgical intervention was needed however GI evaluation was needed. [facility]LY [facility] Medical History Ulcerative colitis Nonrheumatic aortic (valve) stenosis Bicuspid aortic valve Heat exhaustion Hypokalemia Acute kidney injury Chest pain, unspecified UTI (urinary tract infection) Asthma Churg-Geronimo syndrome Home Medications ?Medication ?Instructions ?Recorded ?Last Taken ?Type guaifenesin 1,200 mg tablet, 1,200 mg PO DAILY 11/22/24 11/22/24 History extended release 12 hr (Mucinex) ivermectin 3 mg tablet 3 mg PO DAILY 11/22/24 11/22/24 History Allergy/AdvReac Type Severity Reaction Status Date / Time acetaminophen Allergy Mild Itching Verified 11/24/24 13:37 Penicillins (PCN) Allergy PT UNSURE Verified 11/24/24 13:37 OF REACTION Family History Other Heart disease Surgical History Hx laparoscopic cholecystectomy History of colectomy History of right and left heart catheterization (LHC) (~07/12/01) History of aortic valve replacement with bioprosthetic valve Social History Smoking Status: Never smoker alcohol intake: current details: occasional substance use type: does not use ROS Constitutional Constitutional: Denies fatigue, fever(s), poor appetite, weight gain or weight loss Gastrointestinal Gastrointestinal: Denies belching, bloating, change in bowel habits, change in stool character, chewing difficulty, coffee ground emesis, constipation, cramping, diarrhea, dyspepsia, dysphagia, early satiety, excessive flatus, fecal incontinence, heartburn, hematemesis, hematochezia, hemorrhoids, loose stools, melena, nausea, odynophagia, rectal bleeding, tenesmus, vomiting or weight changes Physical Exam Const alert, oriented x3, no apparent distress and healthy appearing General Appearance: cooperative GI normal to inspection, nondistended, normoactive bowel sounds, soft to palpation, non-tender and non-distended Percussion: normal to percussion Rectal Exam: deferred Lab / Micro Data 11/24/24 05:56 11/24/24 05:56 Labs: Laboratory Results - last 24 hr 11/23/24 17:57: Hgb 7.9 L, Hct 27.1 L 11/24/24 05:56: WBC 9.7, RBC 3.85 L, Hgb 8.0 L, Hct 28.0 L, MCV 72.7 L, MCH 20.8 L, MCHC 28.6 L, RDW Std Deviation 57.0 H, RDW Coeff of Paulo 22.0 H, Plt Count 349, MPV 9.3, Immature Gran % (Auto) 0.300, Neut % (Auto) 72.5 H, Lymph % (Auto) 12.5 L, Polk % (Auto) 8.5, Eos % (Auto) 5.2 H, Baso % (Auto) 1.0, Absolute Neuts (auto) 7.0, Absolute Lymphs (auto) 1.21, Nucleated RBC % 0, Anisocytosis 2+, PT 15.1 H, INR 1.2, APTT 30.9, Sodium 139, Potassium 3.4 L, Chloride 109 H, Carbon Dioxide 23.0, Anion Gap 7, BUN 14, Creatinine 0.77, Estim Creat Clear Calc 131.08, Est GFR (MDRD) Af Amer 135, Est GFR (MDRD) Non-Af 111, BUN/Creatinine Ratio 18.1, Glucose 76, Calcium 8.1 L Imaging Radiology Impression MRCP 11/24/24 08:28 IMPRESSION: 1. Heterogeneous mass in the left hepatic lobe with severe left intrahepatic biliary dilatation suggestive of cholangiocarcinoma. Recommend MRI of the liver with contrast and delayed imaging for further evaluation. 2. Hepatomegaly 3. Cardiomegaly Reading Location: [facility] Assessment & Plan Assessment/Plan (1) Liver mass: (2) Acute anemia: (3) Acute GI bleeding: (4) Dyspnea on exertion: (5) Fatigue: (6) Lower extremity edema: PLAN: Plan 54-year gentleman with past medical history of ulcerative colitis status post total proctocolectomy with J-pouch ileal anal anastomosis presents with Severe acute microcytic anemia -Highly suspect iron deficiency -Patient with positive guaiac stool and history of ulcerative colitis -Status post complete colectomy -Transfuse 4 units packed red blood cells due to aortic valve disease with diuretics in between -If all the colon was not removed he is high risk for colon cancer he should undergo flexible sigmoidoscopy -Also his CT scan shows a very large stomach with hepatosplenomegaly which make you suspicious for an upper GI pathology Liver mass -Per read suggestive of cholangiocarcinoma -Agree agree with MRCP -Alpha-fetoprotein, CEA and CA 19-[address] of the abdomen pelvis -Case was discussed with GS (Dr. Live and she did not feel that this was pneumatosis with necrosis of the anastomosis Charges/Coding Visit Charges Inpatient E&M: 93236 Init Hosp L3
[2024-11-23] MEDS: Bumetanide 1 MG/4 ML Vial 2 MG IV (17:49)
[2024-11-23 18:06] LABS: Hematocrit 27.1 % (40-54); Hemoglobin 7.9 g/dL (13.0-16.5)
[2024-11-24] VITALS (11 sets, daily range): BP systolic 91–102; BP diastolic 58–72; PULSE 86–106; RESP 14–20; TEMP 36.1–36.8; O2SAT 93–99; BMI 26.7
[2024-11-24 07:19] LABS: Absolute Lymphocyte Count 1.21 X10^3/uL (0.83-4.51); Eosinophils% 5.2 % (0-5); Lymphocyte # 1.21 X10^3/ul (0.83-4.51); Lymphocyte % 12.5 % (19-41); Mean Corp Hgb Conc 28.6 g/dL (32-36); Mean Corpuscular Hgb 20.8 pg (27.0-32.0); Mean Corpuscular Volume 72.7 fL (80-94); Mean Platelet Vol. 9.3 fl (6.2-12.0); Monocyte# 0.82 X10^3/uL; Monocyte% 8.5 % (0-10); NRBC Flagged by Analyzer 0 % (0-5); Neutrophil # 7.02 X10^3/uL (2.7-7.7); Neutrophil % 72.5 % (47-70); POSITIVE MORPHOLOGY YES; Platelet Count 349 K/mm3 (150-450); Red Blood Count 3.85 M/mm3 (4.6-6.2); White Blood Count 9.7 K/mm3 (4.4-11.0)
[2024-11-24 07:22] LABS: Differential Indicated SCAN CRITERIA MET
[2024-11-24 07:58] LABS: Anisocytosis 2+
[2024-11-24 07:59] LABS: International Normalized Ratio 1.2; Prothrombin Time (Protime)PT. 15.1 SECONDS (11.7-14.9)
[2024-11-24 08:15] LABS: Partial Thromboplast Time 30.9 Seconds (24.1-36.2)
--- NOTE | 2024-11-24 08:28 | MRI_ITS ---
PROCEDURE: MRCP ABDOMEN WITHOUT CONTRAST REASON FOR EXAM: Question cholangiocarcinoma TECHNIQUE: MRCP without contrast. 3-D reformatted images generated by the technologist using MRI scanner software. COMPARISON: Correlation with CT of the abdomen and pelvis dated 11/22/2024. FINDINGS: Lower chest: Heart is enlarged. Bile ducts: Severely dilated intrahepatic ducts in the left hepatic lobe Gallbladder: Unremarkable. Pancreatic duct: Unremarkable. 3D Images: Nondiagnostic.. Liver: Liver is enlarged. There is a heterogeneous mass in the left hepatic lobe measuring 7.8 x 6.4 cm. Pancreas: Unremarkable. MRI/MRCP Abdomen without Contrast IMPRESSION: 1. Heterogeneous mass in the left hepatic lobe with severe left intrahepatic b iliary dilatation suggestive of cholangiocarcinoma. Recommend MRI of the liver with contrast and delayed imagi ng for further evaluation. 2. Hepatomegaly 3. Cardiomegaly [facility]
[2024-11-24 08:39] LABS: Anion Gap 7 (5-15); BUN 14 mg/dL (7-18); BUN/Creat Ratio 18.1 RATIO (10-20); Calcium,Total 8.1 mg/dL (8.5-10.1); Chloride 109 mmol/L (98-107); Creatinine, Serum 0.77 mg/dL (0.70-1.30); EST Glomerular Filtration Rate 111 mL/min (>60); Est Glom Filt Rate - Afr Amer 135 mL/min (>60); Estimated Creatinine Clearance 131.08 ml/min; Glucose 76 mg/dL (74-106); Potassium 3.4 mmol/L (3.5-5.1); Sodium Level 139 mmol/L (136-145)
--- NOTE | 2024-11-24 10:28 | PCM.PN.HOSP ---
Subjective Subjective Feels much better than when he came into the hospital. Awaiting evaluation by GI as well as MRCP Objective Data Objective Data Vital Signs: Vital Signs Temp Pulse Resp BP Pulse Ox O2 Del Method 97 F L 88 20 H 102/72 95 Room Air 11/24/24 04:26 11/24/24 04:26 11/24/24 04:26 11/24/24 04:26 11/24/24 04:11/24/24 05:17 Oxygen Delivery Method Room Air Weight: 214 lb 1.102 oz Body Mass Index (BMI) 26.7 Intake & Output: Intake and Output for Last 24 Hours 11/23/24 11/24/24 11/25/24 03:59 03:59 03:59 Intake Total 1876 / 1876 2084 / 2084 0 / 0 Output Total 1125 / 1125 1999 / 1999 200 / 200 Balance 751 / 751 84 / 84 -200 / -200 Lab / Micro Data 11/24/24 05:56 11/24/24 05:56 Labs: Laboratory Results - last 24 hr 11/22/24 13:55: Crossmatch See Detail 11/23/24 12:55: Hgb 8.1 L, Hct 26.9 L 11/23/24 17:57: Hgb 7.9 L, Hct 27.1 L 11/24/24 05:56: WBC 9.7, RBC 3.85 L, Hgb 8.0 L, Hct 28.0 L, MCV 72.7 L, MCH 20.8 L, MCHC 28.6 L, RDW Std Deviation 57.0 H, RDW Coeff of Paulo 22.0 H, Plt Count 349, MPV 9.3, Immature Gran % (Auto) 0.300, Neut % (Auto) 72.5 H, Lymph % (Auto) 12.5 L, Wallace % (Auto) 8.5, Eos % (Auto) 5.2 H, Baso % (Auto) 1.0, Absolute Neuts (auto) 7.0, Absolute Lymphs (auto) 1.21, Nucleated RBC % 0, Anisocytosis 2+, PT 15.1 H, INR 1.2, APTT 30.9, Sodium 139, Potassium 3.4 L, Chloride 109 H, Carbon Dioxide 23.0, Anion Gap 7, BUN 14, Creatinine 0.77, Estim Creat Clear Calc 131.08, Est GFR (MDRD) Af Amer 135, Est GFR (MDRD) Non-Af 111, BUN/Creatinine Ratio 18.1, Glucose 76, Calcium 8.1 L Micro: Microbiology 11/22/24 13:59 Mucosa - Nose SARS-CoV-2, Influenza & RSV (PCR) - Final 11/22/24 13:59 Stool Stool Occult Blood (SEDRICK) - Final Occult Blood Positive Physical Exam Narrative General: Alert, Oriented x3, Cooperative, No apparent distress HEENT: Atraumatic, PERRLA, EOMI, Normocephalic Oral: Moist Mucosa Neck: Supple, No JVD Lungs: Diminished, Normal air movement, No rhonchi, No wheeze, No rales Cardiovascular: Irregular rate and rhythm, normal S1, Normal S2, murmur Abdomen: Soft, Non Tender, slightly distended, No Hepato-splenomegaly Extremities: Edema, Capillary Refill Less than 3 Seconds Skin: No rashes, No breakdown Musculoskeletal: No Tenderness to Palpation of Joints or Extremities Neurological: No focal neurological deficits, Motor Exam 5/5 strength throughout, Sensory exam intact to light touch and pain Psych/Mental Status: Normal Affect, Appropriate Assessment & Plan Assessment/Plan (1) Liver mass: (2) Acute anemia: (3) Acute GI bleeding: (4) Dyspnea on exertion: (5) Fatigue: (6) Lower extremity edema: PLAN: Plan 1. Acute blood loss anemia complicated by iron deficiency anemia ? Continue with blood transfusions ? Appreciate GIs assistance ?He does have a history of ulcerative colitis status post J-pouch ? Continue with PPI ? Blood pressures are soft we will continue with Bumex but will monitor and adjust as necessary 2. New onset A-fib/history of bicuspid aortic valve replacement ? Hold anticoagulation secondary to his GI bleed ? Echocardiogram is pending ? TSH is elevated ? Continue with IV metoprolol 3. New liver mass ? Could be cholangiocarcinoma ? MRCP is pending 4. History of Churg-Geronimo syndrome ? Rheumatology as an outpatient DVT: SCDs Charges/Coding Visit Charges Inpatient E&M: 29711 Subs Hosp L2
--- NOTE | 2024-11-24 13:15 | EGD_PTH ---
PATIENT: YUNI BRONSON LOC: [facility] U#:[id number] AGE/SX: 54/M ROOM: [facility] RE11/22/[address]: Dr. Salena Matthews MD : 1970 BED: 1 DIS: 11/26/2024 SPEC #: [id number] RECD: 11/24/24 18:14 STATUS: RODERICK SAAB #: [id number] ALEXEI: 11/24/24 13:[address]: Kailash Gustafson DEPT: SURGICAL PATHOLOGY RECD BY: Radha Wilson ENTERED: 11/25/24 09:41 SP TYPE: EGD BIOPSY OTHR DR: Dr. Dinah Lazaro, DO Dr. John Love MD No Primary Care Phys Tissues: A - Duodenum, NOS B - COLON BIOPSY Procedures: Surgery Specimen Level IV Comments: @ Specimen number changed from [id number] to [id number] @ on 11/25/24 at 1004 by CYNDI. @ Ordering doctor for SUIV edited from to @ by CYNDI at 11/25/24 1009 @ Submitting doctor edited from to @ by CYNDI at 11/25/24 1009 HEADER OPERATION: EGD with biopsy, flex sig with biopsy PRE-OP DIAGNOSIS: Liver mass, acute GI bleeding, dyspnea on exertion, fatigue, lower extremity edema TISSUE SUBMITTED: A- Duodenum biopsy, B- (colon) Anastamosis biopsy MICROSCOPIC DIAGNOSIS A. Duodenum, biopsy: Fragments of duodenal mucosa with mild Ernst's gland hyperplasia. B. Colon anastomosis, biopsy: Fragments of colonic mucosa with extensive ulceration, acute and chronic inflammation, granulation tissue reaction and reactive epithelial changes. 11/26/2024 MICROSCOPIC DESCRIPTION Slides are reviewed. GROSS DESCRIPTION A. Received in fixative is one container labeled with the patient's name and designated Duodenum biopsy. The specimen consists of multiple irregular fragments of light jesus soft tissue that in aggregate measure 1.1 x 0.2 x 0.2 cm. The specimen is totally submitted in one cassette. B. Received in fixative is one container labeled with the patient's name and designated Anastomosis biopsy. The specimen consists of multiple irregular fragments of light jesus soft tissue that in aggregate measure 2.2 x 0.3 x 0.2 cm. The specimen is totally submitted in one cassette. 11/25/2024 TC:2 CPT:95179w2
--- NOTE | 2024-11-24 13:37 | PCM.PRE.AN2 ---
ASA Classification* ASA Classification ASA Classification: 3 Assessment & Plan Anesthesia* Anesthesia Assessment Anesthesia Assessment: Discussed sedation and/or anesthesia options, risks, benefits, and alternatives with patient/parents/legal guardian/POA. Questions invited. The patient/parents/legal guardian/POA seems to understand and agrees to proceed with anesthesia plan. Reviewed the physical assessment, medical history, allergy history and patient home medications list prior to surgery/procedure/anesthetic and documented any changes. Performed airway and anesthesia risk assessments. Anesthesia Type Anesthesia Type: MAC Anesthesia Focused Assessment* Temperature: 98.2 F Pulse Rate: 89 Blood Pressure: 102/66 Respiratory Rate: 16 Pulse Ox: 99 Airway Assessment Mouth opens: >3 cm Mallampati Score: II Focused Labs Anesthesia Preop lab: CBC WBC 9.7 K/mm3 (4.4-11.0) 11/24/24 05:56 11/24/24 RBC 3.85 M/mm3 (4.6-6.2) L 11/24/24 05:56 11/24/24 Hgb 8.0 g/dL (13.0-16.5) L 11/24/24 05:56 11/24/24 Hct 28.0 % (40-54) L 11/24/24 05:56 11/24/24 Plt Count 349 K/mm3 (150-450) 11/24/24 05:56 11/24/24 CHEMISTRY Potassium 3.4 mmol/L (3.5-5.1) L 11/24/24 05:56 11/24/24 Sodium 139 mmol/L (136-145) 11/24/24 05:56 11/24/24 Magnesium 1.5 mg/dL (1.6-2.6) L 11/23/24 06:11 11/23/24 Phosphorus 3.1 mg/dL (2.5-4.9) 11/23/24 06:11 11/23/24 BUN 14 mg/dL (7-18) 11/24/24 05:56 11/24/24 Creatinine 0.77 mg/dL (0.70-1.30) 11/24/24 05:56 11/24/24 Glucose 76 mg/dL (74-106) 11/24/24 05:56 11/24/24 POC Glucose 88 mg/dL (70-110) 09/27/18 13:25 09/27/18 TSH 7.280 uIU/mL (0.358-3.740) H 11/23/24 06:11 11/23/24 COAG PT 15.1 SECONDS (11.7-14.9) H 11/24/24 05:56 11/24/24 Pre-Assessment Diagnosis/Proposed Procedure Planned Operative Procedure(s): EGD with possible flex Sigmoidoscopy Anesthesia History Anesthesia History - clean up person: Anesthesia History - clean up person Hx Hospitalization No 06/25/20 10:52 Any Problems With Anesthesia No 11/23/24 22:24 Cholinesterase deficiency No 11/23/24 22:24 You/Your Family Experience No 11/23/24 22:24 fever (hyperthermia) with Relationship Recent Exposure to Contagious No 11/23/24 22:24 Disease Does patient have nerve No 11/23/24 22:24 stimulator Patient instructed to have No 11/23/24 22:24 device shut off --Does patient have Pacemaker or ICD? When Was Last Pacemaker Check QUESTION #4 FULL TEXT: You/Your Family Experience fever (hyperthermia) with Anesthesia Last Oral Intake Last Oral intake: Last Oral Intake NPO since 00:00 11/23/24 22:24 Meds taken in AM with sips of water? Meds patient instructed to take am of surgery PONV PONV - clean up person: PONV - clean up person Female HX of Motion Sickness HX of N/V After Surgery Non-Smoker Duration of Surgery greater than 60 minutes Number of Risk Factors PONV Score Height & Weight Height & Weight: Anesthesia: Height & Weight Height 6 ft 3 in 11/23/24 22:24 Weight: 97.1 kg 11/24/24 05:02 Body Mass Index (BMI) 26.7 11/24/24 05:02 Respiratory Assessment Respiratory Assessment - clean up person: Respiratory Tract Infection Hx - clean up person Hx Respiratory Tract Infection No 11/23/24 22:24 STOP Sleep Apnea STOP Sleep Apnea - clean up person: STOP Sleep Apnea - clean up person Hx Hypertension No 11/23/24 11:16 Hx Sleep Apnea No 11/22/24 19:52 CPAP Yes: DOESN'T USE 04/16/20 20:23 BIPAP No 07/10/20 20:23 Do you snore loudly (louder Yes 11/22/24 19:52 than talking or can be heard Do you often feel tired/ Yes 11/22/24 19:52 fatigued/ sleepy during daytime? Has anyone observed you stop No 11/22/24 19:52 breathing during sleep? STOP Results Positive 11/22/24 19:52 QUESTION #5 FULL TEXT : Do you snore loudly (louder than talking or can be heard through closed doors)? Tobacco Use History Tobacco Use History - clean up person: Tobacco Use History - clean up person Tobacco Use Smoking Status Never smoker 11/22/24 19:52 Hx Tobacco Use No 11/22/24 19:52 Years Smoking Packs Smoked per Day Smoking Cessation Date was within the last 15 years Hx Smoking Cessation Date Hx Smoking Cessation Counseling Hematologic Medial History Hematologic Hx - clean up person: Hematologic Medical Hx - lint cleaner Hx of Blood Transfusion Yes 11/22/24 19:52 Hx of Transfusion in last 3 No 11/22/24 19:52 Months Date of Last Transfusion (if within last 3 months) Ever experience any problems No 11/22/24 19:52 with transfusion(s)? Specify any problems Hx of Preganancy in last 3 N/A 11/22/24 19:52 Months Nurse Filling Out Transfusion MBAUTZ 11/22/24 19:52 & Questions: Date: 11/22/24 11/22/24 19:52 Time: 20:24 11/22/24 19:52 Patient unable to answer at this time (ie. confused, unrespo /Reproduction History /Reproductive History - clean up person: /Reproductive Hx- clean up person Hx Now Gestational Age (in weeks): EDC: Hx Hx Para Hx Section SAB Active Medications Active Medications: Current Medications Generic Name Dose Route Start Last Admin Trade Name Freq PRN Reason Stop Dose Admin Albuterol Sulfate 2.5 mg 11/22/24 19:52 Albuterol 2.5 Mg/3 Ml Vial.Neb. INHALATION Q2H PRN PRN SOB &/OR WHEEZING Bumetanide 2 mg 11/23/24 10:00 11/23/24 17:49 Bumetanide 1 Mg/4 Ml Vial IV 2 mg BIDLX CHAPO Administration Guaifenesin 1,200 mg 11/23/24 10:00 11/23/24 11:14 Guaifenesin 1,200 Mg Tablet PO Not Given DAILY CHAPO Pantoprazole Sodium 40 mg/ 110 mls @ 330 mls/hr 11/22/24 22:00 11/23/24 21:25 Sodium Chloride IV Infused Q12 CHAPO Infusion Sodium Chloride 100 mls @ 15 mls/hr 11/22/24 19:53 IV .Q6H40M PRN Saline Flush Sodium Chloride 100 mls @ 15 mls/hr 11/22/24 19:53 IV .Q6H40M PRN Additional IVPB Infusion Melatonin 3 mg 11/22/24 19:52 Melatonin 3 Mg Tablet PO QHS PRN PRN INSOMNIA Metoprolol Tartrate 2.5 mg 11/22/24 20:49 Metoprolol Tartrate 5 Mg/5 Ml Vial IV Q6H PRN PRN HR>110 Protocol Ondansetron HCl 4 mg 11/22/24 19:52 Ondansetron 4 Mg/2 Ml Vial IV Q8H PRN PRN NAUSEA/VOMITING Prochlorperazine Edisylate 5 mg 11/22/24 19:52 Prochlorperazine 10 Mg/2 Ml Vial IV Q4H PRN PRN Breakthrough Nausea/Vomiting Sodium Chloride 10 - 40 ml 11/22/24 19:53 11/23/24 21:05 0.9% Saline Lock 10 Ml Syringe IV 10 ml UD PRN Administration SALINE FLUSH PFSH Medical History Ulcerative colitis Nonrheumatic aortic (valve) stenosis Bicuspid aortic valve Heat exhaustion Hypokalemia Acute kidney injury Chest pain, unspecified UTI (urinary tract infection) Asthma Churg-Geronimo syndrome Home Medications ?Medication ?Instructions ?Recorded ?Last Taken ?Type guaifenesin 1,200 mg tablet, 1,200 mg PO DAILY 11/22/24 11/22/24 History extended release 12 hr (Mucinex) ivermectin 3 mg tablet 3 mg PO DAILY 11/22/24 11/22/24 History Allergy/AdvReac Type Severity Reaction Status Date / Time acetaminophen Allergy Mild Itching Verified 11/24/24 13:37 Penicillins (PCN) Allergy PT UNSURE Verified 11/24/24 13:37 OF REACTION Family History Other Heart disease Surgical History Hx laparoscopic cholecystectomy History of colectomy History of right and left heart catheterization (LHC) (~07/12/01) History of aortic valve replacement with bioprosthetic valve Social History Smoking Status: Never smoker alcohol intake: current details: occasional substance use type: does not use Review of Systems (Anesthesia) ROS Narrative System reviewed and no additional complaints, except as documented.
--- NOTE | 2024-11-24 13:50 | PCM.PN.BLA ---
Progress Note Patient is for EGD and flexible sigmoidoscopy today. Physical Exam Const alert, oriented x3, no apparent distress and healthy appearing General Appearance: cooperative GI normal to inspection, nondistended, normoactive bowel sounds, soft to palpation, non-tender and non-distended Percussion: normal to percussion Rectal Exam: deferred Assessment & Plan Assessment/Plan (1) Liver mass: (2) Acute GI bleeding: (3) Dyspnea on exertion: (4) Fatigue: (5) Lower extremity edema: PLAN: Plan 54-year gentleman with past medical history of ulcerative colitis status post total proctocolectomy with J-pouch ileal anal anastomosis presents with Severe acute microcytic anemia -Highly suspect iron deficiency -Patient with positive guaiac stool and history of ulcerative colitis -Status post complete colectomy -Transfuse 4 units packed red blood cells due to aortic valve disease with diuretics in between -If all the colon was not removed he is high risk for colon cancer he should undergo flexible sigmoidoscopy -Also his CT scan shows a very large stomach with hepatosplenomegaly which make you suspicious for an upper GI pathology Liver mass -Per read suggestive of cholangiocarcinoma -Agree agree with MRCP -Alpha-fetoprotein, CEA and CA 19-[address] of the abdomen pelvis -Case was discussed with GS (Dr. Lvie and she did not feel that this was pneumatosis with necrosis of the anastomosis
--- NOTE | 2024-11-24 14:34 | PCM.POST.ANE ---
Anesthesia: Postop Eval I Current Vital Signs Temperature: 97.5 F Pulse Rate: 90 Blood Pressure: 102/61 Respiratory Rate: 18 Pulse Ox: 97 Oxygen Delivery Method: Room Air Assessment Airway patent: Yes Spontaneous unlabored respirations: Yes Mental status: Asleep nausea: No Vomiting: No Anesthesia Complication: No Fluid Hydration Crystalloid volume administer (ml): 60 Total IV fluid infused: 60 Progress Note Anesthesia document: Postop Eval 1 completed: Yes
--- NOTE | 2024-11-24 14:38 | OP.CCLET_ITS ---
11/24/2024 No Primary Care Physician Re : Upper GI endoscopy procedure for Deny Nuno Dear Care Physician This procedure was performed on Sunday, November 24, 2024. My impressions and recommendations are as follows: Impressions : - Normal esophagus. - Gastroparesis. - Gastric stenosis was found at the pylorus. - Duodenitis. Biopsied. Recommendations : - [facility]. - Resume previous diet. - Continue present medications. - Await pathology results. My findings are described in the full procedure note, which is enclosed. If I can be of further assistance, please feel free to contact me at . Sincerely, Kailash Gustafson, 11/24/2024 2:37:39 PM This report has been signed electronically.
--- NOTE | 2024-11-24 14:38 | OP.EGD_ITS ---
Patient Name: Deny Nuno Procedure Date: 11/24/2024 1:49 PM Date of : 1970 Age: 54 Procedure: Upper GI endoscopy Indications: Iron deficiency anemia Providers: Kailash Gustafson DO Medicines: Monitored Anesthesia Care Patient Profile: This is a 54 year old male. Refer to note in patient chart for documentation of history and physical. Patient has symptoms of acute abdominal distention. Complications: No immediate complications. Procedure: Pre-Anesthesia Assessment: - Prior to the procedure, a History and Physical was performed, and patient medications and allergies were reviewed. The patient is competent. The risks and benefits of the procedure and the sedation options and risks were discussed with the patient. All questions were answered and informed consent was obtained. Patient identification and proposed procedure were verified by the physician. Mental Status Examination: alert and oriented. Prophylactic Antibiotics: The patient does not require prophylactic antibiotics. Prior Anticoagulants: The patient has taken heparin, last dose was 1 day prior to procedure. ASA Grade Assessment: II - A patient with mild systemic disease. After reviewing the risks and benefits, the patient was deemed in satisfactory condition to undergo the procedure. The anesthesia plan was to use monitored anesthesia care (MAC). Immediately prior to administration of medications, the patient was re-assessed for adequacy to receive sedatives. The heart rate, respiratory rate, oxygen saturations, blood pressure, adequacy of pulmonary ventilation, and response to care were monitored throughout the procedure. The physical status of the patient was re-assessed after the procedure. After obtaining informed consent, the endoscope was passed under direct vision. Throughout the procedure, the patient's blood pressure, pulse, and oxygen saturations were monitored continuously. The Colonoscope was introduced through the mouth, and advanced to the second part of duodenum. The Colonoscope was introduced through the mouth, and advanced to the fourth part of the duodenum. Small bowel enteroscopy was deemed necessary. The upper GI endoscopy was accomplished without difficulty. The patient tolerated the procedure well. Scope In: 2:02:23 PM Scope Out: 2:05:43 PM Total Procedure Duration Time 0 hours 3 minutes 20 seconds Findings: The examined esophagus was normal. Suspect gastroparesis due to absence of peristalsis, patient symptoms and retained gastric contents. A benign-appearing, intrinsic severe stenosis was found at the pylorus. This was traversed. Localized mild inflammation characterized by congestion (edema) was found in the duodenal bulb. Biopsies were taken with a cold forceps for histology. Verification of patient identification for the specimen was done. Estimated blood loss was minimal. Impression: - Normal esophagus. - Gastroparesis. - Gastric stenosis was found at the pylorus. - Duodenitis. Biopsied. Recommendation: - [facility] to [facility]. - Resume previous diet. - Continue present medications. - Await pathology results. Procedure Code(s): --- Professional --- 96738, Small intestinal endoscopy, enteroscopy beyond second portion of duodenum, not including ileum; with biopsy, single or multiple CPT copyright 2021 [employer]. All rights reserved. The codes documented in this report are preliminary and upon medical coder review may be revised to meet current compliance requirements. Kailash Gustafson DO 11/24/2024 2:37:39 PM This report has been signed electronically. Number of Addenda: 0 Note Initiated On: 11/24/2024 1:49 PM
--- NOTE | 2024-11-24 14:49 | OP.FLEXSIG_ITS ---
Patient Name: Deny Nuno Procedure Date: 11/24/2024 2:08 PM Date of : 1970 Age: 54 Procedure: Flexible Sigmoidoscopy Indications: Hematochezia Providers: Kailash Gustafson DO Medicines: Propofol per Anesthesia, Monitored Anesthesia Care Patient Profile: This is a 54 year old male. Refer to note in patient chart for documentation of history and physical. Patient has symptoms of acute abdominal distention. Complications: No immediate complications. Procedure: Pre-Anesthesia Assessment: - Prior to the procedure, a History and Physical was performed, and patient medications and allergies were reviewed. The patient is competent. The risks and benefits of the procedure and the sedation options and risks were discussed with the patient. All questions were answered and informed consent was obtained. Patient identification and proposed procedure were verified by the physician. Mental Status Examination: alert and oriented. Prophylactic Antibiotics: The patient does not require prophylactic antibiotics. Prior Anticoagulants: The patient has taken heparin, last dose was 1 day prior to procedure. ASA Grade Assessment: II - A patient with mild systemic disease. After reviewing the risks and benefits, the patient was deemed in satisfactory condition to undergo the procedure. The anesthesia plan was to use monitored anesthesia care (MAC). Immediately prior to administration of medications, the patient was re-assessed for adequacy to receive sedatives. The heart rate, respiratory rate, oxygen saturations, blood pressure, adequacy of pulmonary ventilation, and response to care were monitored throughout the procedure. The physical status of the patient was re-assessed after the procedure. After obtaining informed consent, the endoscope was passed under direct vision. Throughout the procedure, the patient's blood pressure, pulse, and oxygen saturations were monitored continuously. The Colonoscope was introduced through the anus and advanced to the ileo-rectal anastomosis. The flexible sigmoidoscopy was accomplished without difficulty. The patient tolerated the procedure well. No bowel preparation was given prior to the procedure. The quality of visualization was fair. Scope In: 2:10:09 PM Scope Out: 2:15:32 PM Total Procedure Duration Time 0 hours 5 minutes 23 seconds Findings: The perianal and digital rectal examinations were normal. Multiple 5 mm subepithelial nodules were found in the rectum with bleeding stigmata. Biopsies were taken with a cold forceps for histology. Verification of patient identification for the specimen was done. Estimated blood loss was minimal. Impression: - Subepithelial nodule in the rectum.This is likely the site of blood lossl Biopsied. Procedure Code(s): --- Professional --- 94503, Sigmoidoscopy, flexible; with biopsy, single or multiple CPT copyright 2021 [employer]. All rights reserved. The codes documented in this report are preliminary and upon stock handler floorperson review may be revised to meet current compliance requirements. Kailash Gustafson DO 11/24/2024 2:49:09 PM This report has been signed electronically. Number of Addenda: 0 Note Initiated On: 11/24/2024 2:08 PM
--- NOTE | 2024-11-24 14:49 | OP.CCLET_ITS ---
11/24/2024 No Primary Care Physician Re : Flexible Sigmoidoscopy procedure for Deny Nuno Dear Care Physician This procedure was performed on Sunday, November 24, 2024. My impressions and recommendations are as follows: Impressions : - Subepithelial nodule in the rectum.This is likely the site of blood lossl Biopsied. Recommendations : My findings are described in the full procedure note, which is enclosed. If I can be of further assistance, please feel free to contact me at . Sincerely, Kailash Friend, 11/24/2024 2:49:09 PM This report has been signed electronically.
--- NOTE | 2024-11-24 15:56 | PCM.POSTANE2 ---
Anesthesia Postop Eval I Sum Postop Eval Completion status Anesthesia document: Postop Eval 1 completed: Yes Anesthesia Postop Eval I Summary Anesthesia Postop Eval I Summary: Anesthesia Postop Eval I: Assessment Summary Airway patent Yes 11/24/24 14:35 [email or web address] Spontaneous unlabored Yes 11/24/24 14:35 [email or web address] respirations Mental status Asleep 11/24/24 14:35 [email or web address] nausea No 11/24/24 14:35 [email or web address] Vomiting No 11/24/24 14:35 [email or web address] Anesthesia Postop Eval I: Fluid Summary Crystalloid volume administer 60 11/24/24 14:35 [email or web address] (ml) Colloids volume administered ( ml) Blood Product volume administered (ml) Total IV fluid infused 60 11/24/24 14:35 [email or web address] Anesthesia Postop Eval I: Summary Notes Anesthesia Complication No 11/24/24 14:35 [email or web address] Anesthesia Complication Comment: Post-operative progress note Anesthesia: Postop Eval II Evaluation Mental status: Awake Pain Level: 0 nausea: No Vomiting: No
[2024-11-24 16:07] LABS: Pathologist Review Reviewed
[2024-11-24] MEDS: Bumetanide 1 MG/4 ML Vial 2 MG IV (16:46)
[2024-11-24] MEDS: guaiFENesin 1,200 MG Tablet 1200 MG PO (16:46)
[2024-11-24] MEDS: Pantoprazole Sodium 40 MG in 0.9% Normal Saline (100mL MB+) 100 ML 330 MG IV ×2 (17:01→21:15)
--- NOTE | 2024-11-24 17:16 | PCM.PN.BLA ---
Progress Note Follow-up in office: [7 days] Patient does not take any anticoagulation Patient does not take any antiplatelet therapy New GI related medications for discharge: [Lasix 40 mg daily and Aldactone 50 mg daily] Follow-up procedures needed: [Await liver biopsy, await biopsies of his sigmoid colon for possible granulomatous disease of the anal rectal anastomosis from previous total proctocolectomy referral to liver transplant center] Visit Charges Inpatient E&M: 15895 Subs Hosp L2
[2024-11-24 18:23] LABS: International Normalized Ratio 1.2; Prothrombin Time (Protime)PT. 15.4 SECONDS (11.7-14.9)
[2024-11-24 18:27] LABS: LDH 167 U/L (87-241)
[2024-11-25] VITALS (23 sets, daily range): BP systolic 83–97; BP diastolic 54–71; PULSE 81–97; RESP 16–18; TEMP 36.3–36.6; O2SAT 95–100; BMI 27.1
--- NOTE | 2024-11-25 | ASPIGT_PTH ---
PATIENT: YUNI BRONSON LOC: [facility] U#:[id number] AGE/SX: 54/M ROOM: [facility] RE11/22/[address]: Dr. Salena Matthews MD : 1970 BED: 1 DIS: 11/26/2024 SPEC #: [id number] RECD: 11/25/24 12:01 STATUS: [facility] #: [id number] ALEXEI: 11/25/24 00:[address]: John Love DEPT: SURGICAL PATHOLOGY RECD BY: Radha Wilson ENTERED: 11/25/24 12:03 SP TYPE: ASP RAD OTHR DR: Dr. Dinah Lazaro, DO No Primary Care Phys Tissues: Liver, NOS Procedures: FNA Specimen Adequacy Immunohistochemical Stains Special Stain Group II Surgery Specimen Level V Imprint (control) IHC Stain ADDITIONAL HEADER OPERATION: CT guided liver biopsy PRE-OP DIAGNOSIS: Liver mass TISSUE SUBMITTED: 18 gauge x 4 cores MICROSCOPIC DIAGNOSIS Liver mass, CT guided core biopsy: Well differentiated glands with intestinal differentiation, consistent with well-differentiated adenocarcinoma. Liver tissue is not present. See comment. 12/04/2024 COMMENT The specimen is evaluated at the time of biopsy by Dr. Penny. Immediate Evaluation = Marked acute inflammation. Negative for malignant cells. Numerous organisms are consistent with bacteria are noted. Reported to Dr. Montgomery at 11:49am on 11/25/2024. The specimen is sent to [facility] for expert opinion, reviewed by Dr. Harding and the above diagnosis is rendered. The complete report is viewable in the patient's EMR. Dr. 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 Immunostains positive for CK20, CDX2, SATB2, CK17, CK19 and MUC2, negative for CK7, Arginase-1, PAX8, and MUC5AC support intestinal differentiation. Correlation with clinical, radiologic findings and appropriate follow up are necessary. This case has been reviewed in consultation with Dr. Chu who concurs with above diagnosis. IDC:FA MICROSCOPIC DESCRIPTION Slides are reviewed. GROSS DESCRIPTION Received in fixative is one container labeled with the patient's name and designated Liver biopsy. The specimen consists of a wooden stick and fragments of jesus tissue mostly cores which are numerous in number and range from 3mm to 1.2cm in length. The tissue together aggregates to approximately 5-6m and each core is at most 1mm in diameter. The specimen is strained through a biopsy bag and is submitted in total one cassette. 11/25/2024 TC:0 CPT:55163,22234 ,88334,90268 ADDENDUM ADDENDUM ADDENDUM ADDENDUM ADDENDUM ADDENDUM ADDENDUM ADDENDUM ADDENDUM ADDENDUM ADDENDUM 12/22/2024 16:22 ADDENDUM 12/22/2024 16:22 ADDENDUM 12/22/2024 16:22 ADDENDUM 12/22/2024 16:22 ADDENDUM 12/22/2024 16:22 This addendum is added to incorporate an outside pathology consultation report. The case was examined at [facility] by Dr. Alannah Keith (#[id number]) and the following diagnosis was rendered. 1. Liver mass, CT-guided core biopsy: Colorectal cancer NGS panel: NEGATIVE IDH 1 / IDH 2 mutation panel: NEGATIVE Please see complete above mentioned consultation report in EMR
[2024-11-25 05:59] LABS: Absolute Lymphocyte Count 0.77 X10^3/uL (0.83-4.51); Basophil# 0.04 X10^3/uL; Basophil% 0.4 % (0-1); Hematocrit 29.2 % (40-54); Hemoglobin 8.4 g/dL (13.0-16.5); Lymphocyte # 0.77 X10^3/ul (0.83-4.51); Lymphocyte % 7.5 % (19-41); Mean Corp Hgb Conc 28.8 g/dL (32-36); Mean Corpuscular Hgb 20.8 pg (27.0-32.0); Mean Corpuscular Volume 72.5 fL (80-94); Mean Platelet Vol. 8.9 fl (6.2-12.0); Monocyte# 0.49 X10^3/uL; Monocyte% 4.7 % (0-10); NRBC Flagged by Analyzer 0 % (0-5); Neutrophil # 8.97 X10^3/uL (2.7-7.7); Neutrophil % 86.8 % (47-70); POSITIVE MORPHOLOGY YES; Platelet Count 370 K/mm3 (150-450); RBC Distribution Width CV 22.7 % (11.6-14.6); RBC Distribution Width SD 58.4 fl (35.1-43.9); Red Blood Count 4.03 M/mm3 (4.6-6.2); White Blood Count 10.3 K/mm3 (4.4-11.0)
[2024-11-25 06:13] LABS: Differential Indicated SCAN CRITERIA MET
[2024-11-25 06:31] LABS: ALB/GLOB Ratio 0.4 RATIO (0.9-2.4); AST(SGOT) 38 U/L (15-37); Alanine Aminotransfer ALT/SGPT 23 U/L (16-61); Alkaline Phosphatase 586 U/L (45-117); Anion Gap 8 (5-15); BUN 21 mg/dL (7-18); BUN/Creat Ratio 21.3 RATIO (10-20); Calcium,Total 8.2 mg/dL (8.5-10.1); Chloride 108 mmol/L (98-107); Creatinine, Serum 0.99 mg/dL (0.70-1.30); EST Glomerular Filtration Rate 84 mL/min (>60); Est Glom Filt Rate - Afr Amer 101 mL/min (>60); Estimated Creatinine Clearance 101.95 ml/min; Globulin 5.7 g/dL (2.2-4.2); Glucose 133 mg/dL (74-106); Potassium 3.7 mmol/L (3.5-5.1); Protein, Total 7.7 g/dL (6.4-8.2); Sodium Level 139 mmol/L (136-145)
[2024-11-25 06:53] LABS: Anisocytosis 3+; Macrocytosis 1+; Microcytosis 2+; Ovalocyte 1+; Polychromasia 1+; Target Cells 1+
--- NOTE | 2024-11-25 11:15 | CT_ITS ---
EXAM: CT-guided liver biopsy. CLINICAL HISTORY: Mass in the left lobe of the liver. COMPARISON: Comparison is made with prior CT scan of the abdomen dated November 22, 2024. TECHNIQUE: The patient was in the supine position. The procedure as well as the benefits and possible complications including bleeding infection were explained to the patient. Informed consent was obtained. The lesion in the left lobe of the liver was localized. The overlying skin was prepped and draped in the usual sterile fashion. Conscious sedation was performed. The patient received 1 mg of Versed and 25 mcg of fentanyl intravenously. Conscious sedation was started at 11:16 a.m. and terminated 11:39 a.m.. The patient was independently monitored by the department nurse. Following local anesthetic application, an 18 gauge core biopsy needle system was placed into the abnormality in the left lobe of the liver anteriorly. 5 18 gauge core biopsies were performed. The specimen was sent to the laboratory for analysis. The patient tolerated the procedure well. No immediate complication is seen. FINDINGS: CT-guided biopsy of the left lobe of the liver. CT/Biopsy/Inj or Needle Placement IMPRESSION: CT-guided biopsy of the left lobe of the liver. Conscious sedation was perform ed. The patient tolerated the procedure well. No immediate complication seen. [facility]
[2024-11-25] MEDS: Midazolam 2 MG/2 ML Syringe IV ×2 (11:16→11:29)
[2024-11-25] MEDS: fentaNYL 100 MCG/2 ML Ampul IV (11:18)
[2024-11-25] MEDS: Lidocaine 2% (20 ml mdv) 20 ML Vial INFILT (11:32)
[2024-11-25] MEDS: Pantoprazole Sodium 40 MG in 0.9% Normal Saline (100mL MB+) 100 ML 330 MG IV ×2 (12:55→20:58)
--- NOTE | 2024-11-25 14:53 | CASEMGMT ---
SW met with patient. Introduced self and role at [facility]. Patient does not qualify for Medicaid as he is over income. SW did talk with patient about [facility] and [facility]. He was aware of both. Patient said he will likely continue going to the clinic at [facility] that sent him to the hospital. SW did provide patient with a list of prescription assistance programs. Patient denied any other needs. Patient said he could pay for d/c meds. Erlinda VALLE
[2024-11-25] MEDS: guaiFENesin 1,200 MG Tablet 1200 MG PO (15:24)
--- NOTE | 2024-11-25 15:59 | CHAPLAIN ---
Type of Pastoral Visit ___ Initial Visit ___ Follow-up Visit ___ On-call Visit ___ General Patient Visit ___ Spiritual Assessment ___ Family Conference ___ Bereavement ___ Rapid Response ___ Code Blue ___ Other (describe below) Pastoral Care Referral From ___ Patient ___ Family ___ Nurse ___ Physician ___ Department Administrator ___ Vp Transportation ___ Other (describe below) Sacrament/Intervention ___ Active listening ___ Anointing ___ Anabaptism ___ Bereavement ___ Communion ___ Zeny exploration ___ ___ Life review ___ Prayer ___ Reconciliation ___ Sacrament of Sick ___ Supportive presence ___ Wedding ___ Other (describe below) Pastoral Comments patient and bed were out of the room; left a calling card
--- NOTE | 2024-11-25 17:10 | PCM.PN.HOSP ---
Subjective Subjective Doing well, no issues overnight. Had a CT-guided liver biopsy today afterwards pressures were little bit soft his Bumex was held Objective Data Objective Data Vital Signs: Vital Signs Temp Pulse Resp BP Pulse Ox O2 Del Method O2 Flow Rate 97.4 F L 88 16 94/61 98 Room Air 2 11/25/24 12:53 11/25/24 12:53 11/25/24 12:53 11/25/24 12:53 11/25/24 12:53 11/25/24 14:00 11/25/24 11:40 Oxygen Flow Rate (L/min) 2 Oxygen Delivery Method Room Air Weight: 216 lb 14.958 oz Body Mass Index (BMI) 27.1 Intake & Output: Intake and Output for Last 24 Hours 11/24/24 11/25/24 11/26/24 03:59 03:59 03:59 Intake Total 2084 / 2084 220 / 220 410 / 410 Output Total 1999 / 1999 1250 / 1250 350 / 350 Balance 84 / 84 -1030 / -1030 60 / 60 Lab / Micro Data 11/25/24 05:38 11/25/24 05:38 Labs: Laboratory Results - last 24 hr 11/24/24 17:49: PT 15.4 H, INR 1.2, APTT 30.0, Lactate Dehydrogenase 167, SEEMA-1 Antibody TNP, SS-A/Ro IgG Antibody TNP, SS-B/La IgG Antibody TNP, Sm (Winters) Antibody TNP, HIGHWAY COMMISSIONER Antibody TNP, Antichromatin Antibodies TNP, Centromere B Antibody TNP 11/25/24 05:38: WBC 10.3, RBC 4.03 L, Hgb 8.4 L, Hct 29.2 L, MCV 72.5 L, MCH 20.8 L, MCHC 28.8 L, RDW Std Deviation 58.4 H, RDW Coeff of Paulo 22.7 H, Plt Count 370, MPV 8.9, Immature Gran % (Auto) 0.600, Neut % (Auto) 86.8 H, Lymph % (Auto) 7.5 L, [place] % (Auto) 4.7, Eos % (Auto) 0.0, Baso % (Auto) 0.4, Absolute Neuts (auto) 9.0 H, Absolute Lymphs (auto) 0.77 L, Nucleated RBC % 0, Polychromasia 1+, Anisocytosis 3+, Microcytosis 2+, Macrocytosis 1+, Target Cells 1+, Ovalocytes 1+, Sodium 139, Potassium 3.7, Chloride 108 H, Carbon Dioxide 23.0, Anion Gap 8, BUN 21 H, Creatinine 0.99, Estim Creat Clear Calc 101.95, Est GFR (MDRD) Af Amer 101, Est GFR (MDRD) Non-Af 84, BUN/Creatinine Ratio 21.3 H, Glucose 133 H, Calcium 8.2 L, Total Bilirubin 0.90, AST 38 H, ALT 23, Alkaline Phosphatase 586 H, Total Protein 7.7, Albumin 2.0 L, Globulin 5.7 H, Albumin/Globulin Ratio 0.4 L Micro: Microbiology 11/22/24 13:59 Mucosa - Nose SARS-CoV-2, Influenza & RSV (PCR) - Final 11/22/24 13:59 Stool Stool Occult Blood (SEDRICK) - Final Occult Blood Positive Radiography Diagnostic Testing: Radiology Impression Biopsy CT 11/25/24 11:15 IMPRESSION: CT-guided biopsy of the left lobe of the liver. Conscious sedation was performed. The patient tolerated the procedure well. No immediate complication seen. Reading Location: [place] [address] Physical Exam Narrative General: Alert, Oriented x3, Cooperative, No apparent distress HEENT: Atraumatic, PERRLA, EOMI, Normocephalic Oral: Moist Mucosa Neck: Supple, No JVD Lungs: Diminished, Normal air movement, No rhonchi, No wheeze, No rales Cardiovascular: Regular rate, regular rhythm, normal S1, Normal S2, murmur Abdomen: Soft, Non Tender, slightly distended, No Hepato-splenomegaly Extremities: Edema, Capillary Refill Less than 3 Seconds Skin: No rashes, No breakdown Musculoskeletal: No Tenderness to Palpation of Joints or Extremities Neurological: No focal neurological deficits, Motor Exam 5/5 strength throughout, Sensory exam intact to light touch and pain Psych/Mental Status: Normal Affect, Appropriate Assessment & Plan Assessment/Plan (1) Liver mass: (2) Acute anemia: (3) Acute GI bleeding: (4) Dyspnea on exertion: (5) Fatigue: (6) Lower extremity edema: PLAN: Plan 1. Acute blood loss anemia complicated by iron deficiency anemia ? Continue with blood transfusions ? Appreciate GIs assistance ?He does have a history of ulcerative colitis status post J-pouch ? Continue with PPI ? Will transition to p.o. Lasix and p.o. Aldactone tomorrow morning if pressures can support 2. New onset A-fib/history of bicuspid aortic valve replacement ? Hold anticoagulation secondary to his GI bleed ?Echo with an EF of 65% and stage I diastolic dysfunction with severe biatrial enlargement and RVSP of 40 mmHg. There is moderate to severe calcification of his bioprosthetic aortic valve with severe aortic valve stenosis ? TSH is elevated, not likely causing his A-fib but will need outpatient evaluation after his acute illness ? Continue with IV metoprolol 3. New liver mass ? Could be cholangiocarcinoma ? MRCP demonstrates a heterogeneous mass in the left hepatic lobe with severe left intrahepatic biliary dilatation suggestive of cholangiocarcinoma ? Tumor markers are pending ? He did have a liver biopsy today 4. History of Churg-Geronimo syndrome ? Rheumatology as an outpatient DVT: SCDs Charges/Coding Visit Charges Inpatient E&M: 52374 Subs Hosp L2
--- NOTE | 2024-11-25 17:31 | PN_ITS ---
Progress Note Patient underwent liver biopsy today. He is not experiencing any pain. He is status post EGD and flexible sigmoidoscopy. Physical Exam Narrative General: Alert, Oriented x3, Cooperative, No apparent distress HEENT: Atraumatic, PERRLA, EOMI, Normocephalic Oral: Moist Mucosa Neck: Supple, No JVD Lungs: Diminished, Normal air movement, No rhonchi, No wheeze, No rales Cardiovascular: Regular rate, regular rhythm, normal S1, Normal S2, murmur Abdomen: Soft, Non Tender, slightly distended, No Hepato-splenomegaly Extremities: Edema, Capillary Refill Less than 3 Seconds Skin: No rashes, No breakdown Musculoskeletal: No Tenderness to Palpation of Joints or Extremities Neurological: No focal neurological deficits, Motor Exam 5/5 strength throughout, Sensory exam intact to light touch and pain Psych/Mental Status: Normal Affect, Appropriate Assessment & Plan Assessment/Plan (1) Liver mass: (2) Acute GI bleeding: (3) Dyspnea on exertion: (4) Fatigue: (5) Lower extremity edema: PLAN: Plan 54-year gentleman with past medical history of ulcerative colitis status post total proctocolectomy with J-pouch ileal anal anastomosis presents with Severe acute microcytic anemia -Highly suspect iron deficiency -Patient with positive guaiac stool and history of ulcerative colitis -Status post complete colectomy -Transfuse 4 units packed red blood cells due to aortic valve disease with diuretics in between -If all the colon was not removed he is high risk for colon cancer he should undergo flexible sigmoidoscopy -Also his CT scan shows a very large stomach with hepatosplenomegaly which make you suspicious for an upper GI pathology Liver mass -Per read suggestive of cholangiocarcinoma -Agree agree with MRCP -Alpha-fetoprotein, CEA and CA 19-[address] of the abdomen pelvis -Case was discussed with GS (Dr. Live and she did not feel that this was pneumatosis with necrosis of the anastomosis 11/25/2024-patient does not have any abdominal pain. He has large liver mass that underwent biopsy. Awaiting pathology from biopsy. Also awaiting alpha- fetoprotein, CEA and CA 19-9. Guarded prognosis. He may need steroid therapy but definitely needs to see rheumatology. He talked about possible autoimmune hemolysis but we do not have any documentation. We will see if his hemoglobin continues to improve. If it holds then he may be able to get the rest of his workup as an outpatient. Visit Charges Inpatient E&M: 76753 Subs Hosp L3
[2024-11-26] VITALS (7 sets, daily range): BP systolic 95–109; BP diastolic 56–76; PULSE 69–94; RESP 16–18; TEMP 36.1–37.1; O2SAT 96–99; BMI 45.6
[2024-11-26 07:48] LABS: Absolute Lymphocyte Count 1.21 X10^3/uL (0.83-4.51); Absolute Neutrophil Count 7.1 X10^3/uL (2.0-7.7); Basophil# 0.05 X10^3/uL; Basophil% 0.5 % (0-1); Eosinophil# 0.13 X10^3/uL; Eosinophils% 1.4 % (0-5); Hematocrit 27.6 % (40-54); Hemoglobin 7.8 g/dL (13.0-16.5); Lymphocyte # 1.21 X10^3/ul (0.83-4.51); Lymphocyte % 13.1 % (19-41); Mean Corp Hgb Conc 28.3 g/dL (32-36); Mean Corpuscular Hgb 20.6 pg (27.0-32.0); Mean Corpuscular Volume 72.8 fL (80-94); Mean Platelet Vol. 9.1 fl (6.2-12.0); Monocyte# 0.74 X10^3/uL; NRBC Flagged by Analyzer 0 % (0-5); Neutrophil # 7.05 X10^3/uL (2.7-7.7); Neutrophil % 76.4 % (47-70); POSITIVE MORPHOLOGY YES; Platelet Count 345 K/mm3 (150-450); RBC Distribution Width CV 23.5 % (11.6-14.6); Red Blood Count 3.79 M/mm3 (4.6-6.2); White Blood Count 9.2 K/mm3 (4.4-11.0)
[2024-11-26 07:58] LABS: Differential Indicated SCAN CRITERIA MET
[2024-11-26 08:25] LABS: ALB/GLOB Ratio 0.4 RATIO (0.9-2.4); AST(SGOT) 38 U/L (15-37); Alanine Aminotransfer ALT/SGPT 26 U/L (16-61); Alkaline Phosphatase 549 U/L (45-117); Anion Gap 3 (5-15); BUN 24 mg/dL (7-18); BUN/Creat Ratio 27.1 RATIO (10-20); Calcium,Total 8.3 mg/dL (8.5-10.1); Chloride 110 mmol/L (98-107); Creatinine, Serum 0.88 mg/dL (0.70-1.30); EST Glomerular Filtration Rate 95 mL/min (>60); Est Glom Filt Rate - Afr Amer 115 mL/min (>60); Estimated Creatinine Clearance 158.78 ml/min; Globulin 5.6 g/dL (2.2-4.2); Glucose 83 mg/dL (74-106); Potassium 3.7 mmol/L (3.5-5.1); Protein, Total 7.6 g/dL (6.4-8.2); Sodium Level 139 mmol/L (136-145)
[2024-11-26] MEDS: 0.9% Saline Lock 10 ML Syringe IV ×2 (09:44→16:07)
[2024-11-26] MEDS: guaiFENesin 1,200 MG Tablet 1200 MG PO (09:44)
[2024-11-26] MEDS: Pantoprazole Sodium 40 MG in 0.9% Normal Saline (100mL MB+) 100 ML 330 MG IV (09:44)
[2024-11-26 09:45] LABS: Anisocytosis 2+; Hypochromasia 2+
--- NOTE | 2024-11-26 11:00 | CASEMGMT ---
RN CM note: Per Dr Matthews, pt may be ready for discharge today. RN CM to room. Pt sitting up in chair. Introduced self and role. Pt denies having any concerns w/going home today. Discussed PCP, he states he really liked Dr Ramachandran in [facility], who he saw on Sunday, and plans to go back to him, and agreeable to having him added as his PCP for info to be sent to his office @ discharge. [facility] updated. Pt was also provided w/local PCP directory, if needed. Pt denies having other discharge concerns/needs. Advised to ask for CM if any needs arise. Emery MCCRAY RN CM
[2024-11-26 13:21] LABS: Magnesium 1.6 mg/dL (1.6-2.6)
[2024-11-26 14:08] LABS: Anti-Centromere B Ab <0.2 AI (0.0-0.9); Anti-Chromatin 1.7 AI (0.0-0.9); Anti-Jo <0.2 AI (0.0-0.9); Anti-Mitochondrial AB <20.0 Units (0.0-20.0); Anti-Scleroderma-70 AB 0.3 AI (0.0-0.9); Anti-dsDNA Ab 1 IU/mL (0-9); RNP Ab <0.2 AI (0.0-0.9); SJOGREN'S Anti-SS-A test < 0.2 AI (0.0-0.9); SJOGREN'S Anti-SS-B test < 0.2 AI (0.0-0.9); Smith Ab <0.2 AI (0.0-0.9)
--- NOTE | 2024-11-26 16:00 | CHAPLAIN ---
Type of Pastoral Visit _x__ Initial Visit ___ Follow-up Visit ___ On-call Visit ___ General Patient Visit ___ Spiritual Assessment ___ Family Conference ___ Bereavement ___ Rapid Response ___ Code Blue ___ Other (describe below) Pastoral Care Referral From _x__ Patient ___ Family ___ Nurse ___ Physician ___ Letterpress Setter ___ Manufacturing Maintenance Technician ___ Other (describe below) Sacrament/Intervention _x__ Active listening ___ Anointing ___ Congregational ___ Bereavement ___ Communion ___ Zeny exploration ___ _x__ Life review _x__ Prayer ___ Reconciliation ___ Sacrament of Sick _x__ Supportive presence ___ Wedding ___ Other (describe below) Pastoral Comments patient describes his situation and health concern; pt is looking forward to being discharged soon; 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
[2024-11-26] MEDS: Magnesium Sulfate 4gm/100mL 4 GM/100 ML IV.SOLN. IV (16:06)
--- NOTE | 2024-11-26 16:40 | DCINST_ITS ---
Discharge Instructions Diet Discharge Diet: Low fat / Low cholesterol DC O2, CPAP, BIPAP needs Home O2 Discharge instructions: No Dressing / Incision Discharge Activity: Return to Normal Activity Weight Bearing Status: Weight bearing as tolerated Dressing / Incision Call your doctor if you observe: Fever of 101 or Higher, Shortness of breath, Dizziness, Swelling in the ankles and Chest pain Follow Up Care Test Results: Test results from this visit will be discussed in further detail at your follow- up appointment, if applicable. Discharge Plan Admission Admit Date/Time: 11/22/24 19:08 Primary Reason for Your Visit: liver mass Attending Provider: Salena Matthews Primary Care Provider: Jose Ramachandran Consulting Providers: Dinah Lazaro; John Love Instructions Patient Instructions: Iron Deficiency Anemia Ch Discharge Orders/Prescriptions Prescriptions: New furosemide [Lasix] 20 mg tablet 20 mg PO DAILY Qty: 30 2RF potassium chloride 10 mEq tablet extended release 10 meq PO DAILY Qty: 30 1RF pantoprazole 40 mg tablet,delayed release (DR/EC) 40 mg PO DAILY Qty: 30 2RF Continued guaifenesin [Mucinex] 1,200 mg tablet extended release 12hr 1,200 mg PO DAILY Discontinued ivermectin 3 mg tablet 3 mg PO DAILY Patient Comments: PT UNSURE OF STRENGTH. STATES HE GETS FROM THE [facility] [place]. Referrals / Follow Up: Jose Ramachandran DO [Primary Care Provider] - Within 1 Week Kailash Gustafson DO [Med Staff - Active Staff] - Within 2 Weeks Care Physician,No Primary [Non-Staff] - Disposition Disposition (needs filled in before D/C Order can be placed): Home, Self Care
--- NOTE | 2024-11-26 16:41 | DS.PCM_ITS ---
Providers Date of Admission: 11/22/24 Date of Discharge: 11/26/24 Primary Care Physician: Dr. Jose Ramachandran, DO Consultations 11/22/24 19:52 Consult: Gastroenterology Routine Consulting Provider: Kaci [facility] Reason for Consult: GI bleed EMERGENT Consult: No MD Notified: Yes Date Notified: 11/22/24 Time Notified: 19:18 Method of Notification: ED Physician Initiated Reason For Visit: SEVERE ANEMIA Diagnosis Discharge Diagnosis (1) Liver mass: Status: Acute Code(s): R16.0 - Hepatomegaly, not elsewhere classified (2) Acute GI bleeding: Status: Acute Code(s): K92.2 - Gastrointestinal hemorrhage, unspecified (3) Dyspnea on exertion: Status: Acute Code(s): R06.09 - Other forms of dyspnea (4) Fatigue: Status: Acute Code(s): R53.83 - Other fatigue (5) Lower extremity edema: Status: Acute Code(s): R60.0 - Localized edema Medications at Discharge Home Medications guaifenesin 1,200 mg tablet, extended release 12 hr (Mucinex) 1,200 mg PO DAILY 11/22/24 furosemide 20 mg tablet (Lasix) 20 mg PO DAILY #30 tabs 11/26/24 pantoprazole 40 mg tablet,delayed release 40 mg PO DAILY #30 tabs 11/26/24 potassium chloride 10 mEq tablet,extended release 10 meq PO DAILY #30 tabs 11/26/24 Hospital Course Operations None Procedures Colonoscopy and EGD Summary of Care Provided Minutes Spent on Discharge: 47 Hospital Course: Patient is a 54-year-old male with a past medical history as outlined was admitted through the ED on 11/22/2024 with a complaint of abnormal labs. He had gotten a call from [facility] and he was told to go to the ED on account of hemoglobin of 5.7. He did admit to having blood in his stool but said it was chronic due to ulcerative colitis. He had previously had total colectomy and only had small bowel and also had chronic diarrhea. He admitted to chronic weight loss and swelling in his lower extremities over the past several months prior to admission. On admission hemoglobin was 5.8. CT of the chest showed no evidence of PE and showed severe cardiomegaly and dilatation of the bilateral distal pulmonary arteries with enlarged mediastinal lymph nodes consistent with history of granulomatosis with polyangiitis. CT of the abdomen and pelvis showed previous colectomy with an ileoanal pouch, intramural gas with wall thickening concerning for pneumatosis and necrosis of the anastomosis, bowel wall thickening with adjacent ascites and ill-defined hypodensities in the left hepatic lobe concerning for cholangiocarcinoma and diffuse retroperitoneal lymphadenopathy consistent with patient's history of granulomatosis with polyangiitis. He was admitted and managed for severe acute microcytic anemia and lower extremity edema concerning for heart failure in light of elevated BNP. Of note patient was also noted to be in A-fib on admission. This was new onset A-fib for him. Gastroenterology was consulted. Of note to the CT abdomen findings were also discussed with general surgery who thought it was an overread. He had 2D echo which showed EF of 65% with severe left ventricular hypertrophy and stage I diastolic dysfunction. There was also severe biatrial dilatation and bubble study was negative. Cardiology preoperatively read stratified him for EGD and recommended that he could have the procedure done. He had EGD which showed normal esophagus and gastroparesis as well as gastric stenosis at the pylorus and also duodenitis. He had flexible sigmoidoscopy which showed subepithelial nodule in the rectum which was likely the site of the blood loss and was biopsied. MRCP done showed a heterogeneous mass in the left hepatic lobe with severe left intrahepatic biliary dilatation suggestive of cholangiocarcinoma. Tumor markers were ordered and he had a liver biopsy during admission. Results of liver biopsy was still pending. Patient however improved and felt much better and was discharged home on 11/26/2024. Gastroenterology was okay with patient being discharged and he was to follow-up with gastroenterology on outpatient basis for the results of the liver biopsy and to discuss further management. He was discharged home on 11/26/2024. He was discharged on p.o. furosemide 20 mg daily, p.o. pantoprazole as well as p.o. potassium chloride supplementation. Of note he remained in normal sinus rhythm after the initial diagnosis of atrial fibrillation and was also rate controlled. He was therefore to follow-up with his PCP for start of rate limiting medication as needed. He was also not discharged on anticoagulants due to acute on chronic anemia. Of note he was transfused during this admission and at time of discharge hemoglobin was 7.8. He is to follow-up with his primary care doctor and with gastroenterology within 1 to 2 weeks. Patient was seen and examined prior to discharge. He felt well and had no complaints. He had an uneventful night. Review of systems otherwise negative. Labs and vitals reviewed. Home medication reviewed and reconciled. Physical Exam Const alert, oriented x3 and no apparent distress General Appearance: cooperative, comfortable and well kempt Orientation / Consciousness: awake Exam Limitations: no limitations HEENT normocephalic, head/scalp atraumatic, hearing grossly normal bilaterally and moist oral mucous membranes Mouth: oral and palatal mucosa normal Eyes PERRL, EOMs intact bilaterally and conjunctivae normal Neck no lymphadenopathy and supple Resp normal respiratory effort, no retractions, no use of accessory muscles and clear to auscultation bilaterally Cardio regular rate, regular rhythm, S1 normal heart sound, S2 normal heart sound and no murmurs GI normal to inspection, nondistended, normoactive bowel sounds, soft to palpation, non-tender and non-distended Extremity normal to inspection, full ROM and no clubbing, cyanosis or edema Skin no rashes or lesions noted, no wounds, skin turgor normal and no jaundice Neuro oriented x3, CN's II-XII intact bilaterally, moves all extremities and no focal motor deficits Sensorium / Orientation: awake and alert Motor Exam: strength 5/5 throughout Psych affect normal Weight / BMI Weight Weight: 216 lb 14.958 oz Body Mass Index (BMI) 45.6 ABG / Lab / Microbiology Data 11/26/24 07:13 11/26/24 07:13 Laboratory: Laboratory Results - last 24 hr 11/24/24 17:49: Total Protein (PEP) 7.9, Globulin 5.6 H, Tumor Marker AFP < 1.8, Carcinoembryonic Ag 3.4, CA 19-9 Antigen 64 H, IgG 3414 H, IgA 607 H, IgM 243 H, Immunofixation Screen Comment, Albumin (AMPARO) 2.3 L, Albumin/Globulin (AMPARO) 0.5 L , [id number] AMPARO 0.4, [id number] AMPARO 0.7, Beta-Globulins (AMPARO) 1.3, Gamma Globulins (AMPARO) 3.2 H, AMPARO M-Fidencio Not Observed, AMPARO Comments Comment, c-ANCA Antibody <1:20, Atypical p-ANCA >1:640 H, p-ANCA Antibody <1:20, Anti-Smooth Muscle Ab 17 Microbiology: Microbiology 11/22/24 13:59 Mucosa - Nose SARS-CoV-2, Influenza & RSV (PCR) - Final 11/22/24 13:59 Stool Stool Occult Blood (SEDRICK) - Final Occult Blood Positive D/C Instructions Discharge Diet: Low fat / Low cholesterol Discharge Activity: Return to Normal Activity Weight Bearing Status: Weight bearing as tolerated Call your doctor if you observe: Fever of 101 or Higher, Shortness of breath, Dizziness, Swelling in the ankles and Chest pain DC O2, CPAP, BIPAP Needs Home O2 Discharge instructions: No DC home with Oxygen: No Meaningful Use Info Meaningful Use Meaningful Use Diagnoses (Choose all that apply): None applicable Ischemic Stroke Statin Dosing Therapy Reference: STATIN DOSE THERAPY REFERENCE: * Patients > 75 years receive moderate or high dose statin therapy. * Patients 75 years or YOUNGER should receive HIGH intensity statin dose unless contraindicated. You will be required to document reason for non-treatment if statin daily dose does not meet guidelines. HIGH DOSE STATIN THERAPY DAILY Atorvastatin > than or = to 40 mg Rosuvastatin > than or = to 20 mg Amlodipine + Atorvastatin > than or = to 2.5/40 mg Ezetimibe + Simvastatin 10/80 mg Simvastatin 80mg Discharge Plan Admission Admit Date/Time: 11/22/24 19:08 Primary Reason for Your Visit: liver mass Attending Provider: Salena Matthews Primary Care Provider: Jose Ramachandran Consulting Providers: Dinah Lazaro; John Love Instructions Patient Instructions: Iron Deficiency Anemia Discharge Orders/Prescriptions Prescriptions: New furosemide [Lasix] 20 mg tablet 20 mg PO DAILY Qty: 30 2RF potassium chloride 10 mEq tablet extended release 10 meq PO DAILY Qty: 30 1RF pantoprazole 40 mg tablet,delayed release (DR/EC) 40 mg PO DAILY Qty: 30 2RF Continued guaifenesin [Mucinex] 1,200 mg tablet extended release 12hr 1,200 mg PO DAILY Discontinued ivermectin 3 mg tablet 3 mg PO DAILY Patient Comments: PT UNSURE OF STRENGTH. STATES HE GETS FROM THE [facility]. Referrals / Follow Up: Jose Ramachandran DO [Primary Care Provider] - Within 1 Week Kailash Gustafson DO [Med Staff - Active Staff] - Within 2 Weeks Care Physician,No Primary [Non-Staff] - Disposition Disposition (needs filled in before D/C Order can be placed): Home, Self Care Charges/Coding Visit Charges Inpatient E&M: 73239 Disch Hosp >30min
[2024-11-27 15:08] LABS: AFP, Tumor Marker < 1.8 ng/mL (0.0-8.4); Albumin 2.3 g/dL (2.9-4.4); Alpha-1-Globulins 0.4 g/dL (0.0-0.4); Alpha-2-Globulins 0.7 g/dL (0.4-1.0); Anti-Smooth Muscle ABS 17 Units (0-19); Carbohydrate AG 19-9 64 U/mL (0-35); Carcinoembryonic Antigen 3.4 ng/mL (0.0-4.7); Cytoplasmic Ab (C-ANCA) <1:20 titer (Neg:<1:20); Gamma Globulin 3.2 g/dL (0.4-1.8); Immunoglobulin A 607 mg/dL (90-386); Immunoglobulin G 3414 mg/dL (603-1613); Immunoglobulin M 243 mg/dL (20-172); PROEL- TOTAL PROTEIN 7.9 g/dL (6.0-8.5); Perinuclear Ab (P-ANCA) <1:20 titer (Neg:<1:20)
== END 2024-11-26 20:35 | disposition home or self-care (01) | DRG 812 ==
LOC: ED 18:34 → PCU 19:35
PROVIDERS: Family Medicine; Internal Medicine Gastroenterology; Nurse Practitioner; Admitting Provider Internal Medicine; Emergency Provider Emergency Medicine; PCP Family Medicine; Visit Provider Student in an Organized Health Care Education/Training Program
PROC: 0DJ08ZZ Inspection of Upper Intestinal Tract, Via Natural or Artificial Opening Endoscopic (ICD-10-PCS; CPT 43235; principal; 2024-11-24 13:10)
DX: D62 Acute posthemorrhagic anemia (principal); M30.1 Polyarteritis with lung involvement [Churg-Strauss]; C22.1 Intrahepatic bile duct carcinoma; K62.5 Hemorrhage of anus and rectum; K22.2 Esophageal obstruction; K29.80 Duodenitis without bleeding; K31.84 Gastroparesis; D50.9 Iron deficiency anemia, unspecified; I35.0 Nonrheumatic aortic (valve) stenosis; I48.91 Unspecified atrial fibrillation; K31.89 Other diseases of stomach and duodenum; Z95.3 Presence of xenogenic heart valve; Z95.2 Presence of prosthetic heart valve
CPT/HCPCS: 36415; 71275; 74177; 74181; 77012; 80048; 80053; 80076; 81001; 82105; 82274; 82378; 82784; 83516; 83605; 83615; 83690; 83735; 83880; 84100; 84165; 84443; 84484; 85014; 85018; 85025; 85610; 85730; 86037; 86225; 86235; 86301; 86334; 86850; 86900; 86901; 86920; 87631; 88172; 88305; 88307; 88313; 93005; 93306; 93970; 94668; 97161; 97165; 97535; 97802; 97803; 99156; 99252; 99284; P9016; P9047; Q9967; A4216; G0463; J0744; J1940; J2405

== ENCOUNTER 2025-02-11 10:28 | Day surgery (SDC) | payer MEDICAID, SELFPAY ==
--- NOTE | 2025-02-10 09:31 | PAT.ANESEVAL ---
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 When Was Last Pacemaker Check QUESTION #4 FULL TEXT: You/Your Family Experience fever (hyperthermia) with Anesthesia Last Oral Intake Last Oral intake: Last Oral Intake NPO since Meds taken in AM with sips of water? 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 Female No 02/10/25 08:35 HX of Motion Sickness No 02/10/25 08:35 HX of N/V After Surgery Yes 02/10/25 08:35 Non-Smoker Yes 02/10/25 08:35 Duration of Surgery greater No 02/10/25 08:35 than 60 minutes Number of Risk Factors 2 02/10/25 08:35 PONV Score Moderate Risk 02/10/25 08:35 Height & Weight Height & Weight: Anesthesia: Height & Weight Height 6 ft 3 in 02/09/25 14:29 Respiratory Assessment Respiratory Assessment - motor assembly supervisor: Respiratory Tract Infection Hx - motor assembly supervisor Hx Respiratory Tract Infection No 02/10/25 08:35 STOP Sleep Apnea STOP Sleep Apnea - motor assembly supervisor: STOP Sleep Apnea - motor assembly supervisor Hx Hypertension No 02/10/25 08:35 Hx Sleep Apnea No 02/10/25 08:35 CPAP No 02/10/25 08:35 BIPAP No 02/10/25 08:35 Do you snore loudly (louder Yes 02/10/25 08:35 than talking or can be heard Do you often feel tired/ No 02/10/25 08:35 fatigued/ sleepy during daytime? Has anyone observed you stop No 02/10/25 08:35 breathing during sleep? STOP Results Negative 02/10/25 08:35 QUESTION #5 FULL TEXT : Do you snore loudly (louder than talking or can be heard through closed doors)? 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 Specify any problems Hx of Preganancy in last 3 N/A 02/10/25 08:35 Months Nurse Filling Out Transfusion VCHRISTIN 02/10/25 08:35 & Questions: Date: 02/10/25 02/10/25 08:35 Time: 08:36 02/10/25 08:35 Patient unable to answer at this time (ie. 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: /Reproductive Hx- motor assembly supervisor Hx Now Gestational Age (in weeks): EDC: Hx Hx Para Hx Section SAB PFSH Medical History (Updated 02/10/25 @ 08:34 by Rufina Santos) Wears glasses Cancer Anemia Easy bruising Excessive bleeding Essential tremor History of GI bleed Gastric reflux Non-smoker Shortness of breath on exertion Colitis History of edema History of stress test History of echocardiogram Cardiology follow-up encounter Encounter for education Cardiac murmur Pelvic lymphadenopathy Mesenteric lymphadenopathy Retroperitoneal lymphadenopathy Mediastinal lymphadenopathy Iron deficiency anemia due to chronic blood loss Metastasis to liver of unknown origin Ulcerative colitis Ascites Cholangiocarcinoma Atrial fibrillation HUANG (dyspnea on exertion) Nonrheumatic aortic (valve) stenosis Bicuspid aortic valve Acute kidney injury Chest pain, unspecified Asthma Churg-Geronimo syndrome Home Medications ?Medication ?Instructions ?Recorded ?Last Taken ?Type guaifenesin 1,200 mg tablet, 1,200 mg PO DAILY 11/22/24 11/22/24 History extended release 12 hr (Mucinex) furosemide 20 mg tablet (Lasix) 20 mg PO DAILY #30 tabs 11/26/24 Unknown Rx pantoprazole 40 mg tablet,delayed 40 mg PO DAILY #30 tabs 11/26/24 Unknown Rx release cholestyramine-aspartame 4 gram 4 g PO TID #239.4 grams 12/05/24 Unknown Rx oral powder (Cholestyramine Light) metoprolol succinate 25 mg 25 mg PO QDAY #90 tabs 02/06/25 Unknown Rx tablet,extended release 24 hr (Toprol XL) loperamide 2 mg capsule (Imodium 2 mg PO QDAY 02/09/25 Unknown History A-D) Allergy/AdvReac Type Severity Reaction Status Date / Time acetaminophen Allergy Mild Itching Verified 02/10/25 08:20 Penicillins (PCN) Allergy PT UNSURE Verified 02/10/25 08:20 OF REACTION Family History Other Heart disease Surgical History (Updated 02/10/25 @ 08:34 by Rufina Santos) History of esophagogastroduodenoscopy (EGD) Hx of surgical procedure S/P proctocolectomy (~1993) Hx laparoscopic cholecystectomy History of right and left heart catheterization (LHC) (~07/12/01) History of aortic valve replacement with bioprosthetic valve Social History Smoking Status: Never smoker alcohol intake: current alcohol intake frequency: holidays/special occasions only details: occasional substance use type: does not use Audit: Pertinent Findings Pertinent Findings EKG Perinent findings: 02/06/25. Atrial fibrillation. 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 Stress test pertinent findings: 02/11/2021. Possible mild ischemia involving the basal inferior lateral segment. Ejection fraction 53%. Echo (EF%) pertinent findings: 11/24/2024 ejection fraction 65%. RVSP is 40 mmHg. Moderate to severe calcification of the bioprosthetic aortic valve. Severe aortic valve stenosis. Mean peak gradient is 55 mmHg. Moderate aortic valve regurgitation Consult pertinent findings: February 06, 2025 Dr. Morales. 1. Atrial fibrillation?acute-controlled ventricular response. [id number] score of 0. Patient should be on anticoagulation but he would be a significant risk for bleeding due to his GI issues-will hold off for now. Rate control with beta-blockers. 2. Metastases to the liver?with deferred to oncology. 3. History of aortic valve replacement with bioprosthetic valve?chronic-there is some valve degeneration with severe stenosis and moderate aortic valve regurgitation. Also biatrial enlargement. Patient does need a redo aortic valve. He would be high risk. Needs to be done at tertiary care center. Additional pertinent findings: EGD under MAC anesthesia on 11/24/2024. No complications. Recommendation Anesthesia Recommendation Anesthesia recommendation: OPTIMIZED for anesthesia
[2025-02-11] VITALS (8 sets, daily range): BP systolic 96–101; BP diastolic 46–68; PULSE 80–93; RESP 16–20; TEMP 36.3–36.8; O2SAT 98–100; BMI 25.8
[2025-02-11] MEDS: Lactated Ringers 1,000 ML 15 ML IV (11:12)
--- NOTE | 2025-02-11 11:30 | PRE.ANES_ITS ---
ASA Classification* ASA Classification ASA Classification: 4 (Newly diagnosed atrial fibrillation. Please refer to cardiac notes. H/o of TAVR, may need revision. Metastatic liver cancer. I think versed and fentanyl may be sufficient with low-dose propofol ) Assessment & Plan Anesthesia* Anesthesia Assessment Anesthesia Assessment: Discussed sedation and/or anesthesia options, risks, benefits, and alternatives with patient/parents/legal guardian/POA. Questions invited. The patient/parents/legal guardian/POA seems to understand and agrees to proceed with anesthesia plan. Reviewed the physical assessment, medical history, allergy history and patient home medications list prior to surgery/procedure/anesthetic and documented any changes. Performed airway and anesthesia risk assessments. Pleasant 55-year-old man with a history of bicuspid aortic valve who underwent a bovine pericardial heart valve replacement with a 27 mm size in September 2001. As you know he does have a history of Crohn's disease severe anemia and more r ecently diagnosed atrial fibrillation as well as metastatic cancer in the liver with unknown primary. He had previously undergone a total proctocolectomy in 1993 with a J-pouch at the [facility] and his pathology has previously demonstrated active colitis as well as recurrent bleeding with black melanotic stools. 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 He denies any chest pain or shortness of breath or paroxysmal nocturnal dyspnea or pedal edema he does have some shortness of breath with exertion though. He has been on his medication which is tolerated. More recently he was diagnosed with atrial fibrillation in November and his EKG today demonstrates atrial fibrillation with a rate of 93 bpm a right bundle branch block and a left anterior fascicular block. Anesthesia Type Anesthesia Type: MAC History Source History Obtained from:: Patient and Chart Anesthesia Focused Assessment* Temperature: 97.3 F Pulse Rate: 80 Blood Pressure: 96/65 Respiratory Rate: 16 Pulse Ox: 100 Oxygen Delivery Method: Room Air Airway Assessment Mouth opens: >3 cm Mallampati Score: II Teeth Condition: Intact Focused Labs Anesthesia Preop lab: CBC WBC 9.2 K/mm3 (4.4-11.0) 02/03/25 10:22 02/03/25 RBC 3.86 M/mm3 (4.6-6.2) L 02/03/25 10:22 02/03/25 Hgb 8.3 g/dL (13.0-16.5) L 02/03/25 10:22 02/03/25 Hct 29.0 % (40-54) L 02/03/25 10:22 02/03/25 Plt Count 351 K/mm3 (150-450) 02/03/25 10:22 02/03/25 CHEMISTRY Potassium 4.2 mmol/L (3.3-5.1) 02/03/25 10:22 02/03/25 Sodium 134 mmol/L (133-145) 02/03/25 10:02/03/25 Magnesium 1.4 mg/dL (1.5-2.2) L 02/03/25 10:02/03/25 Phosphorus 3.2 mg/dL (2.7-4.5) 02/03/25 10:02/03/25 BUN 25 mg/dL (4-19) H 02/03/25 10:02/03/25 Creatinine 0.82 mg/dL (0.70-1.20) 02/03/25 10:02/03/25 Glucose 93 mg/dL (70-99) 02/03/25 10:02/03/25 POC Glucose 88 mg/dL (70-110) 09/27/18 13:25 09/27/18 TSH 7.280 uIU/mL (0.358-3.740) H 11/23/24 06:11 COAG PT 15.4 SECONDS (11.7-14.9) H 11/24/24 17:49 11/08 05/01 Pre-Assessment Diagnosis/Proposed Procedure Planned Operative Procedure(s): PORT PLACEMENT Anesthesia History 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 When Was Last Pacemaker Check QUESTION #4 FULL TEXT: You/Your Family Experience fever (hyperthermia) with Anesthesia Last Oral Intake Last Oral intake: Last Oral Intake NPO since 22:00 02/11/25 10:58 Meds taken in AM with sips of Yes 02/11/25 10:58 water? 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 Female No 02/10/25 08:35 HX of Motion Sickness No 02/10/25 08:35 HX of N/V After Surgery Yes 02/10/25 08:35 Non-Smoker Yes 02/10/25 08:35 Duration of Surgery greater No 02/10/25 08:35 than 60 minutes Number of Risk Factors 2 02/10/25 08:35 PONV Score Moderate Risk 02/10/25 08:35 Height & Weight Height & Weight: Anesthesia: Height & Weight Height 6 ft 3 in 02/11/25 10:58 Weight: 93.8 kg 02/11/25 10:58 Body Mass Index (BMI) 25.8 02/11/25 10:58 Respiratory Assessment Respiratory Assessment - supervisor conditioning yard: Respiratory Tract Infection Hx - supervisor conditioning yard Hx Respiratory Tract Infection No 02/10/25 08:35 STOP Sleep Apnea STOP Sleep Apnea - supervisor conditioning yard: STOP Sleep Apnea - supervisor conditioning yard Hx Hypertension No 02/10/25 08:35 Hx Sleep Apnea No 02/10/25 08:35 CPAP No 02/10/25 08:35 BIPAP No 02/10/25 08:35 Do you snore loudly (louder Yes 02/10/25 08:35 than talking or can be heard Do you often feel tired/ No 02/10/25 08:35 fatigued/ sleepy during daytime? Has anyone observed you stop No 02/10/25 08:35 breathing during sleep? STOP Results Negative 02/10/25 08:35 QUESTION #5 FULL TEXT : Do you snore loudly (louder than talking or can be heard through closed doors)? 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 Specify any problems Hx of Preganancy in last 3 N/A 02/10/25 08:35 Months Nurse Filling Out Transfusion VCHRISTIN 02/10/25 08:35 & Questions: Date: 02/10/25 02/10/25 08:35 Time: 08:36 02/10/25 08:35 Patient unable to answer at this time (ie. 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: /Reproductive Hx- supervisor conditioning yard Hx Now Gestational Age (in weeks): EDC: Hx Hx Para Hx Section SAB Active Medications Active Medications: Current Medications Generic Name Dose Route Start Last Admin Trade Name Freq PRN Reason Stop Dose Admin Clindamycin Phosphate 900 mg in 50 mls @ 75 mls/hr 02/11/25 12:30 Cleocin IV 02/11/25 13:09 INTRAOP ONE Lactated Ringer's 1,000 mls @ 15 mls/hr 02/11/25 10:45 02/11/25 11:12 IV 15 mls/hr .Q48H CHAPO Administration PFSH Medical History (Updated 02/10/25 @ 08:34 by Rufina Santos) Wears glasses Cancer Anemia Easy bruising Excessive bleeding Essential tremor History of GI bleed Gastric reflux Non-smoker Shortness of breath on exertion Colitis History of edema History of stress test History of echocardiogram Cardiology follow-up encounter Encounter for education Cardiac murmur Pelvic lymphadenopathy Mesenteric lymphadenopathy Retroperitoneal lymphadenopathy Mediastinal lymphadenopathy Iron deficiency anemia due to chronic blood loss Metastasis to liver of unknown origin Ulcerative colitis Ascites Cholangiocarcinoma Atrial fibrillation HUANG (dyspnea on exertion) Nonrheumatic aortic (valve) stenosis Bicuspid aortic valve Acute kidney injury Chest pain, unspecified Asthma Churg-Geronimo syndrome Home Medications ?Medication ?Instructions ?Recorded ?Last Taken ?Type guaifenesin 1,200 mg tablet, 1,200 mg PO DAILY 5 11/22/24 History extended release 12 hr (Mucinex) furosemide 20 mg tablet (Lasix) 20 mg PO DAILY #30 tab s 11/26/24 Unknown Rx pantoprazole 40 mg tablet,delayed 40 mg PO DAILY #30 t abs 11/26/24 02/11/25 06:00 Rx release cholestyramine-aspartame 4 gram 4 g PO TID #239.4 gram s 12/05/24 Unknown Rx oral powder (Cholestyramine Light) metoprolol succinate 25 mg 25 mg PO QDAY #90 tabs 12/0202/11/25 06:00 Rx tablet,extended release 24 hr (Toprol XL) loperamide 2 mg capsule (Imodium 2 mg PO QDAY 02/09/25 Unknown History A-D) Allergy/AdvReac Type Severity Reaction Status Date / Time acetaminophen Allergy Mild Itching Verified 02/11/25 10:56 Penicillins (PCN) Allergy PT UNSURE Verified 02/11/25 10:56 OF REACTION Family History Other Heart disease Surgical History (Updated 02/10/25 @ 08:34 by Rufina Santos) History of esophagogastroduodenoscopy (EGD) Hx of surgical procedure S/P proctocolectomy (~1993) Hx laparoscopic cholecystectomy History of right and left heart catheterization (LHC) (~07/12/01) History of aortic valve replacement with bioprosthetic valve Social History Smoking Status: Never smoker alcohol intake: current alcohol intake frequency: holidays/special occasions only details: occasional substance use type: does not use Review of Systems (Anesthesia) ROS Narrative System reviewed and no additional complaints, except as documented. Physical Exam Const alert, oriented x3 and average body habitus Resp normal respiratory effort, normal air movement and clear to auscultation bilaterally Cardio no murmurs and diaphoretic Rhythm: abnormal rhythm irregularly irregular
--- NOTE | 2025-02-11 13:04 | HP.PCM_ITS ---
History and Physical Date of Admission: 02/11/25 Date of Service: 02/09/25 MR#: [id number] Acct: [id number] Name: YUNI BRONSON Rep #: [id number] : 1970 Provider: Dr. Maya Live MD Age/Sex: 55/M Location: [facility] Status: Signed Intake Vital Signs 02/03/2509:22 02/09/2511:57 02/09/2514:29 Height 6 ft 3 in 6 ft 3 in 6 ft 3 in Weight: 209 lb 6 oz BMI 26.2 BP 96/48 L Blood Pressure Location Rt brachial Position Sitting Respiration 17 Pulse 77 Pulse Source Monitor Pulse Oximetry (%) 98 Oxygen Delivery Method room air Intake Visit Reasons: PORT PLACEMENT Chief Complaint: port placement Is patient in pain?: Yes Allergies acetaminophen Allergy (Mild, Verified 02/10/25 08:20) ItchingPenicillins (PCN) Allergy (Verified 02/10/25 08:20) PT UNSURE OF REACTION Medications ?Medication ?Instructions ?Recorded ?Confirmed ?Type guaifenesin 1,200 mg tablet, 1,200 mg PO DAILY 11/22/24 02/10/25 Hist ory extended release 12 hr (Mucinex) furosemide 20 mg tablet (Lasix) 20 mg PO DAILY #30 tabs 11/26/24 5 Rx pantoprazole 40 mg tablet,delayed 40 mg PO DAILY #30 tabs 11/26/24 5 Rx release cholestyramine-aspartame 4 gram 4 g PO TID #239.4 grams 12/05/24 5 Rx oral powder (Cholestyramine Light) metoprolol succinate 25 mg 25 mg PO QDAY #90 tabs 02/06/25 02/10/25 Rx tablet,extended release 24 hr (Toprol XL) loperamide 2 mg capsule (Imodium 2 mg PO QDAY 02/09/25 02/10/25 History A-D) [facility] Medical History (Updated 02/10/25 @ 08:34 by Rufina Santos) Wears glasses Cancer Anemia Easy bruising Excessive bleeding Essential tremor History of GI bleed Gastric reflux Non-smoker Shortness of breath on exertion Colitis History of edema History of stress test History of echocardiogram Cardiology follow-up encounter Encounter for education Cardiac murmur Pelvic lymphadenopathy Mesenteric lymphadenopathy Retroperitoneal lymphadenopathy Mediastinal lymphadenopathy Iron deficiency anemia due to chronic blood loss Metastasis to liver of unknown origin Ulcerative colitis Ascites Cholangiocarcinoma Atrial fibrillation HUANG (dyspnea on exertion) Nonrheumatic aortic (valve) stenosis Bicuspid aortic valve Acute kidney injury Chest pain, unspecified Asthma Churg-Geronimo syndrome Surgical History (Updated 02/10/25 @ 08:34 by Rufina Santos) History of esophagogastroduodenoscopy (EGD) Hx of surgical procedure S/P proctocolectomy (~1993) Hx laparoscopic cholecystectomy History of right and left heart catheterization (LHC) (~07/12/01) History of aortic valve replacement with bioprosthetic valve Family History Other Heart disease Social History Smoking Status: Never smoker alcohol intake: current alcohol intake frequency: holidays/special occasions only details: occasional substance use type: does not use HPI HPI HPI: 55-year-old male presents for port placement for treatment for cholangiocarcinoma. Patient is planned to start February 18. Patient's past medical history includes total proctocolectomy to id for ulcerative colitis in with a J-pouch at [facility], in November 2024 he was found to have melanotic stools with hemoglobin of 5.7. ROS General General: Yes weight change and fatigue; No appetite, colon cancer or breast cancer HEENT HEENT: No difficulty swallowing, eye injury, eye surgery, swollen glands or hoarseness Endo Endocrine: No thyroid disease, diabetes mellitus, thyroid cancer, Hair loss, heat intolerance or cold intolerance Skin Skin: Yes rash; No changing moles Musc Musculoskeletal: No back problems, arthritis, rheumatoid arthritis, gout or joint pain Cardio Cardiovascular: Yes murmur; No pacemaker, heart disease, atrial fibrillation, high blood pressure, heart attack, heart stent, palpitations, shortness of breath with exertion or chest pain Psych Psychiatric: No depression, anxiety or hearing voices Resp Respiratory: Yes shortness of breath, No sleep apnea, No cough, No COPD, No asthma, No emphysema and No wheezing Gastro Gastrointestinal: No abdominal pain, No nausea or vomiting, Yes diarrhea, No constipation, Yes blood in stool, No acid reflux, No hemorrhoids, No ulcers, No gallbladder problem and Yes black,tarry stools [place] Hematologic: No blood thinners, No blood disorders, No bleeding, No anemia and No blood clots Neuro Neurologic: Yes numbness and Yes tingling Exam Const General: cooperative, healthy appearing, comfortable and no acute distress [facility] Head: normocephalic and atraumatic Neck Neck: supple Chest Other: Previous open heart incision well-healed, otherwise palpation of upper chest bilaterally normal Resp Effort & Inspection: normal respiratory effort Cardio Rate: regular rate GI Inspection: non-distended Skin General: no rashes or lesions noted Neuro General: CN's II-XI intact bilaterally Extrem General: normal to inspection Psych Mental Status: mental status grossly normal Attitude: cooperative Assessment and Plan Assessment and Plan (1) Encounter for insertion of tunneled central venous catheter (CVC) with port: Status: Acute (2) Cholangiocarcinoma: Status: Acute Plan I have discussed above with the patient- Port-a-Cath placement. Right possible left IJ Patient has been counseled as to the risks/benefits of the procedure. I have explained the risks of the surgery, including but not limited to: infection, bleeding, injury to any blood vessels/nerves, injury to lungs (such as pneumothorax or hemothorax and need for chest tube), not having any access, nonfunctioning of port due to thrombosis, infection of port, etc. the patient understands and agrees to proceed. I have answered all the patient's questions to the patient?s satisfaction and the patient has no further questions. Maya Live M.D. Pager: [phone] [facility] [address] [place] [address], [address] [place] [address] Office: [phone] Coding Level of Care Code Off vis,new,level 3 Diagnoses Encounter for insertion of tunneled central venous catheter (CVC) with port Z45.2 Cholangiocarcinoma C22.1 02/10/25 1254 <Electronically signed by Maya Live MD> Date Maya Live MD
[2025-02-11] MEDS: Clindamycin 900 MG/50 ML BAG 75 MG IV (13:30)
[2025-02-11] MEDS: Lidocaine 1% /Epi 1:100 (20ml) 20 ML Vial (13:39)
[2025-02-11] MEDS: Bupivacaine Mpf 0.5% 30 ML VIAL (13:39)
--- NOTE | 2025-02-11 14:10 | PCM.OPRPT ---
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 Placement of right IJ Port-A-Cath, 2. Use of ultrasound, 3. 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 Type of Anesthesia: Local MAC RN Documented Start/Stop Times: Operation Date: 02/11/25 12:30 Case Time Into Pre-Op 02/11/25 10:37 Out of Pre-Op 02/11/25 13:18 Anesthesia Start 02/11/25 13:23 Into Room 02/11/25 13:23 Procedure Start 02/11/25 13:39 Procedure End 02/11/25 14:08 Anesthesia End 02/11/25 14:11 Out of Room 02/11/25 14:11 Into Recovery 02/11/25 14:13 Out of Recovery 02/11/25 14:31 Into Phase II Recovery 02/11/25 14:32 Procedure Start Time: 13:39 Procedure Stop Time: 14:08 Select all DRAINS/GRAFTS/IMPLANTS that apply: Implanted device Implanted device details: PowerPort 6 Fr Bard ref [id number] Lot [id number] Special Medications: Clindamycin 900 g IV x 1 Estimated Blood Loss: < 10 cc Specimen collected: No Description of surgery: After informed consent was given, the patient was brought to the operating room and placed in the supine position. Appropriate time out protocol was followed. Patient was then given IV conscious sedation for anesthesia. The patient's right upper chest and neck were then prepped with a surgical skin preparation and sterile surgical drapes were placed. After proper landmarks were ascertained, the skin at the upper right chest area was then infiltrated with 1:1 mixture of 1% lidocaine with epinephrine and 0.5% marcaine. A needle trocar was then inserted into the right internal jugular vein with ultrasound guidance-multiple vessels were viewed with u/s and the right IJ was chosen-- and there was good aspiration of venous blood. A wire was then threaded into the needle trocar and this was visualized under fluoroscopy to ensure that the wire was in the superior vena cava. Once this was done, then the needle trocar was removed. A small skin wade was made with an 11 blade knife at the wire entrance site. The dilator with the introducer sheath attached was then placed over the wire into the right internal jugular vein via the Seldinger technique and this was visualized under fluoroscopy. The dilator and sheath were in proper position as visualized by fluoroscopy. A subcutaneous pocket was then created caudad to the catheter insertion site. A transverse skin incision was made after the skin and subcutaneous tissues were infiltrated with local anesthetic. Blunt dissection was then used to create a space large enough for placement of the subcutaneous port. The catheter was then tunneled into the subcutaneous pocket. The wire and dilator were then removed. The catheter was then threaded into the introducer sheath and was positioned with its tip at the junction of the superior vena cava and the right atrium as visualized under fluoroscopy. The excess catheter was transected. The catheter was then attached to the subcutaneous port using manufacturers guidelines. The catheter was flushed with a heparin saline mixture prior to placement. Hemostasis was carefully controlled with electrocautery. The port was sutured to the subcutaneous fascia using 2-0 Vicryl suture at two sites. The port was then placed in the subcutaneous pocket. The incision were reapproximated with interrupted subdermal 3-0 vicryl sutures. The skin was reapproximated with 3-0 nylon suture in a interrupted fashion. Steristrips were used for reinforcement of the skin closure at IJ insertion site and a sterile opsite dressings were applied. The patient tolerated the procedure well. Surgical Findings: See operative report Complications Complications: No
--- NOTE | 2025-02-11 14:15 | RAD_ITS ---
EXAM: AP portable upright chest CLINICAL HISTORY: Port placement. COMPARISON: Chest x-ray of 04/16/2020. TECHNIQUE: AP portable upright chest, following port placement. RAD/CXR for Line Placement IMPRESSION: The cardiomediastinal silhouette is stable, with mild cardiomegaly likely prese nt. Interval placement of a right subclavian central venous catheter with port, wit h tip projecting over the SVC. No pneumothorax is seen. No significant pleural effusion is evident. Lungs are hypoinflated, and there is probably a mild degree of interstitial pul monary edema noted, however. Reading Location: [place] [address]
--- NOTE | 2025-02-11 14:15 | PCM.POST.ANE ---
Anesthesia: Postop Eval I Current Vital Signs Temperature: 98.3 F Pulse Rate: 93 Blood Pressure: 99/46 Respiratory Rate: 20 Pulse Ox: 98 Oxygen Delivery Method: Room Air Assessment Airway patent: Yes Spontaneous unlabored respirations: Yes Mental status: Awake and Calm nausea: No Vomiting: No Anesthesia Complication: No Fluid Hydration Crystalloid volume administer (ml): 700 Total IV fluid infused: 700 Progress Note Anesthesia document: Postop Eval 1 completed: Yes
--- NOTE | 2025-02-11 14:44 | DCINST_ITS ---
Discharge Instructions Procedure Port-A-Cath Diet Discharge Diet: Light diet - advance as tolerated Activity May shower in (days): 5 (Keep port site clean and dry x5 days. Neck incision okay to get wet after 1 day. Okay to lower shower and upper sponge bath. OR okay to taper off port site with a Ziploc bag to shower) Lifting Restrictions: No lifting > 15 pounds for 3 days with the arm on the side of the port Dressing / Incision Call your doctor if your incision/area has: Continuous Slow Oozing, Sudden Increased Bleeding, Increased Pain/ Swelling, Increased Redness, Foul Smelling Discharge and Swelling at the incision site Call your doctor if you observe: Fever of 101 or Higher Change Dressing in: 2 days (2-3 days- port site; ok to remove neck opsite in 1 day) Follow Up Care Please Follow Up With: Maya Live MD When: In 10 days for permanent suture removal?call office for appointment Test Results: Test results from this visit will be discussed in further detail at your follow- up appointment, if applicable. Discharge Plan Admission Attending Provider: Maya Live Primary Care Provider: Johny Rodríguez Instructions Print Language: [place] Discharge Orders/Prescriptions Prescriptions: New tramadol 50 mg tablet 50 mg PO Q6H PRN (Reason: pain) 2 Days Qty: 5 0RF Continued Cholestyramine Light 4 gram powder 4 g PO TID Qty: 239.4 2RF Rx Instructions: administer w/meal; avoid other meds within 1hr before or 4-6hr after dose loperamide [Imodium A-D] 2 mg capsule 2 mg PO QDAY metoprolol succinate [Toprol XL] 25 mg tablet extended release 24 hr 25 mg PO QDAY Qty: 90 3RF guaifenesin [Mucinex] 1,200 mg tablet extended release 12hr 1,200 mg PO DAILY furosemide [Lasix] 20 mg tablet 20 mg PO DAILY Qty: 30 2RF pantoprazole 40 mg tablet,delayed release (DR/EC) 40 mg PO DAILY Qty: 30 2RF Referrals / Follow Up: Johny Rodríguez PA [Primary Care Provider] - Disposition Disposition (needs filled in before D/C Order can be placed): Home, Self Care
--- NOTE | 2025-02-11 14:47 | POSTOPAN2_ITS ---
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 Spontaneous unlabored Yes 02/11/25 14:16 CONTEMPORARY OR MODERN DANCER.[email or web address] respirations Mental status Awake,Calm 02/11/25 14:16 CONTEMPORARY OR MODERN [email or web address] nausea No 02/11/25 14:16 CONTEMPORARY OR MODERN [email or web address] Vomiting No 02/11/25 14:16 CONTEMPORARY OR MODERN [email or web address] Anesthesia Postop Eval I: Fluid Summary Crystalloid volume administer 700 02/11/25 14:16 CONTEMPORARY OR MODERN [email or web address] (ml) Colloids volume administered ( ml) Blood Product volume administered (ml) Total IV fluid infused 700 02/11/25 14:16 CONTEMPORARY OR MODERN [email or web address] Anesthesia Postop Eval I: Summary Notes Anesthesia Complication No 02/11/25 14:16 CONTEMPORARY OR MODERN [email or web address] Anesthesia Complication Comment: Post-operative progress note Anesthesia: Postop Eval II Evaluation Mental status: Awake Pain Level: 0 nausea: No Vomiting: No Complications Anesthesia Complication: No
--- NOTE | 2025-02-11 14:47 | PCM.POSTANE2 ---
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 nausea No 02/11/25 14:16 [employer]OUNTAIN [employer]USH [email or web address] Vomiting No 02/11/25 14:16 FOUNTAIN BRUSH [email or web address] Anesthesia Postop Eval I: Fluid Summary Crystalloid volume administer 700 02/11/25 14:16 FOUNTAIN BRUSH [email or web address] (ml) Colloids volume administered ( ml) Blood Product volume administered (ml) Total IV fluid infused 700 02/11/25 14:16 FOUNTAIN BRUSH [email or web address] Anesthesia Postop Eval I: Summary Notes Anesthesia Complication No 02/11/25 14:16 FOUNTAIN BRUSH [email or web address] Anesthesia Complication Comment: Post-operative progress note Anesthesia: Postop Eval II Evaluation Mental status: Awake Pain Level: 0 nausea: No Vomiting: No Complications Anesthesia Complication: No
== END 2025-02-11 15:39 | disposition home or self-care (01) ==
LOC: SDC 10:28 → AC 10:30
PROVIDERS: PCP Physician Assistant; Referring Provider Surgery; Visit Provider Surgery
PROC: (CPT 36561; principal; 2025-02-11 12:15)
DX: Z45.2 Encounter for adjustment and management of vascular access device (principal); C22.1 Intrahepatic bile duct carcinoma; I48.91 Unspecified atrial fibrillation; J45.909 Unspecified asthma, uncomplicated; Z79.899 Other long term (current) drug therapy
CPT/HCPCS: 36561; 00532; 71045; 77001

== ENCOUNTER 2025-02-26 07:09 | Outpatient (CLI) | payer MEDICAID, SELFPAY ==
[2025-02-26] VITALS (13 sets, daily range): BP systolic 76–99; BP diastolic 50–66; PULSE 79–100; RESP 18–29; TEMP 36.3; O2SAT 95–100; BMI 26.2
--- NOTE | 2025-02-26 07:12 | CT_ITS ---
PROCEDURE: BIOPSY/INJ OR NEEDLE PLACEMENT 02/26/2025 REASON FOR EXAM: Hepatic mass. TECHNIQUE: CT-guided liver biopsy. The procedure as well as the benefits and possible complications including infection and bleeding were explained to the patient. Informed consent was obtained. The patient was in the supine position. The overlying skin was prepped and draped in the usual sterile fashion. Conscious sedation was performed. The patient received 2 mg of Versed and 50 mcg of fentanyl intravenously. Conscious sedation was started at 8:56 a.m. and terminated at 9:17 a.m.. The patient was independently monitored by the department nurse. Following local anesthetic application, an 18 gauge core biopsy needle was placed into the mass in the left lobe of the liver. 5 core biopsies were obtained. The specimen was deemed adequate for evaluation by the pathologist. One or more dose reduction techniques were used (e.g., Automated exposure control, adjustment of the mA and/or kV according to patient size, use of iterative reconstruction technique). RADIATION DOSE SUMMARY: CTDlvol: 20.5 mGy DLP: 364.5 mGycm COMPARISON: Prior CT scan of the abdomen dated November 25, 2024. FINDINGS: Successful biopsy of the mass in the left lobe of the liver. CT/Biopsy/Inj or Needle Placement IMPRESSION: Successful CT-guided biopsy of the mass in the left lobe of the liver utilizing an 18 gauge core biopsy needle. The patient tolerated the procedure well. Reading Location: [place] [address]
[2025-02-26 07:29] LABS: Absolute Lymphocyte Count 0.87 X10^3/uL (0.83-4.51); Absolute Neutrophil Count 7.1 X10^3/uL (2.0-7.7); Basophil# 0.07 X10^3/uL; Basophil% 0.7 % (0-1); Eosinophil# 0.49 X10^3/uL; Eosinophils% 5.2 % (0-5); Hematocrit 29.9 % (40-54); Hemoglobin 8.8 g/dL (13.0-16.5); Lymphocyte # 0.87 X10^3/ul (0.83-4.51); Lymphocyte % 9.2 % (19-41); Mean Corp Hgb Conc 29.4 g/dL (32-36); Mean Corpuscular Hgb 22.2 pg (27.0-32.0); Mean Corpuscular Volume 75.5 fL (80-94); Mean Platelet Vol. 9.6 fl (6.2-12.0); Monocyte# 0.87 X10^3/uL; Monocyte% 9.2 % (0-10); NRBC Flagged by Analyzer 0 % (0-5); Neutrophil # 7.08 X10^3/uL (2.7-7.7); Neutrophil % 75.4 % (47-70); POSITIVE MORPHOLOGY YES; Platelet Count 305 K/mm3 (150-450); RBC Distribution Width CV 21.6 % (11.6-14.6); RBC Distribution Width SD 56.4 fl (35.1-43.9); Red Blood Count 3.96 M/mm3 (4.6-6.2); White Blood Count 9.4 K/mm3 (4.4-11.0)
[2025-02-26 07:32] LABS: International Normalized Ratio 1.2; Prothrombin Time (Protime)PT. 15.1 SECONDS (11.7-14.9)
[2025-02-26 07:33] LABS: Partial Thromboplast Time 32.4 Seconds (24.1-36.2)
[2025-02-26 07:49] LABS: Differential Indicated SCAN CRITERIA MET
[2025-02-26] MEDS: 0.9% Normal Saline 250 ML IV.SOLN. (08:22)
[2025-02-26] MEDS: Midazolam 2 MG/2 ML Syringe IV (08:56)
[2025-02-26] MEDS: fentaNYL 100 MCG/2 ML Ampul IV (08:57)
--- NOTE | 2025-02-26 09:00 | ASPIGT_PTH ---
PATIENT: YUNI BRONSON LOC: [place] U#:[id number] AGE/SX: 55/M ROOM: RE02/26/[address]: Dr. Trish Ortiz MD : 1970 BED: DIS: 02/26/2025 SPEC #: [id number] RECD: 02/26/25 09:15 STATUS: RODERICK REDangelo #: [id number] ALEXEI: 02/26/25 09:[address]: Trish Ortiz DEPT: SURGICAL PATHOLOGY RECD BY: Pablo Mcqueen ENTERED: 02/26/25 09:29 SP TYPE: ASP RAD OTHR DR: JACK Mccall Tissues: A - Liver, NOS Procedures: FNA Specimen Adequacy Special Stain Group II Surgery Specimen Level IV Surgery Specimen Level V Imprint (control) HEADER OPERATION: CT guided liver biopsy PRE-OP DIAGNOSIS: Neoplasm of liver TISSUE SUBMITTED: A- Liver biopsy, 18 gauge x 5 cores MICROSCOPIC DIAGNOSIS A. Liver, neoplasm, CT-guided core biopsy: * Well-differentiated adenocarcinoma - see note and Comment. * Note: This histology is similar to the previous biopsy ([id number]) with the addition of foci suggestive of desmoplasia and invasion noted, supporting a neoplastic process. IHC (performed at [facility] and [facility]) show the tumor cells to be positive for CDX2, Villin, CK20, CK19, and SATB2 (patchy); and negative for CK7. * These findings are most consistent with a gastrointestinal primary. Although cholangiocarcinoma cannot be entirely ruled out, the findings strongly raise the possibility of a metastasis from a colorectal primary. COMMENT The specimen is evaluated at the time of biopsy by Dr. Gallego. Immediate Evaluation = 3. Mostly blood; rare cells. 4. Adequate. Atypical cells present. The slides/images were reviewed in Consensus Conference by Dr Ellen Avery (GI pathology division, [facility]). MICROSCOPIC DESCRIPTION Slides are reviewed. All matched controls reacted appropriately. These tests were developed and their performance characteristics determined by [facility]. They may not have been cleared or approved by the U.S. Food and Drug Administration. The FDA has determined that such clearance or approval is not necessary.? The above immunohistochemical/dualISH?markers are ordered and reviewed by the Pathologist. GROSS DESCRIPTION A. Received in formalin in a container labeled with the patient's name, date of , and with no further designation are multiple jesus-pink fragments of wispy soft tissue measuring 1.0 x 0.6 x 0.2 cm in aggregate. Submitted in toto in A1. [facility] 02-26-2025 CPT:48534,98874, 67782, [id number] ADDENDUM ADDENDUM ADDENDUM 03/10/2025 14:26 ADDENDUM 03/16/2025 10:54 ADDENDUM 03/10/2025 14:26 ADDENDUM 03/10/2025 14:26 ADDENDUM 03/10/2025 14:26 ADDENDUM 03/10/2025 14:26 IHCs for p53, Ki67, mismatch repair proteins (MMR), and IDH1 mutation are pending and the findings will be reported in a subsequent addendum. This addendum is to report the results of additional IHCs performed at [facility]: p53: wild type Ki67: not increased MMR proteins: intact IDH1: negative All controls showed appropriate reactivity. All immunohistochemistry, in situ hybridization, and histochemical tests were developed by and are performed at the [facility], [address] [place] [address], [address], [place] [address]. All Immunofluorescent (IF) tests were developed by and are performed at the [facility], [facility]. [address] [place] [address], [place], [place]? [address]. All tests reported here, except those addressing HER2 and PD-L1 expression as predictive markers, have not been cleared by or approved by the US Food and Drug Administration (FDA). The laboratory is regulated under CLIA as qualified to perform high-complexity testing. The tests are used for clinical purposes. They should not be regarded as investigational or for research.
[2025-02-26] MEDS: Lidocaine 2% (20 ml mdv) 20 ML Vial INFILT (09:12)
[2025-02-26] MEDS: 0.9% Saline Lock 10 ML Syringe IV ×2 (10:15→10:16)
[2025-02-26 10:46] LABS: Anisocytosis 2+
[2025-02-26 10:51] LABS: Spherocyte RARE
== END 2025-02-26 23:59 | disposition home or self-care (01) ==
PROVIDERS: Radiology Diagnostic Radiology; PCP Physician Assistant; Referring Provider Internal Medicine Hematology & Oncology; Visit Provider Internal Medicine Hematology & Oncology
DX: Z01.818 Encounter for other preprocedural examination (principal); C22.1 Intrahepatic bile duct carcinoma; R59.0 Localized enlarged lymph nodes
CPT/HCPCS: 47000; 36415; 77012; 85025; 85610; 85730; 88172; 88305; 88307; 88313; 99156; A4216

== ENCOUNTER → 2025-03-04 | Outpatient (CLI) | payer MEDICAID, SELFPAY ==
--- NOTE | 2025-03-04 15:43 | CT_ITS ---
PROCEDURE: CT CHEST, ABD, PEL W/CONTRAST 03/04/2025 REASON FOR EXAM: F/U METS CANCER UNKNOWN PRIMARY TECHNIQUE: Chest, abdomen and pelvis CT with intravenous contrast. Coronal and Sagittal reconstruction series were provided. One or more dose reduction techniques were used (e.g., Automated exposure control, adjustment of the mA and/or kV according to patient size, use of iterative reconstruction technique. PATIENT PREPARATION: Per protocol ORAL CONTRAST TYPE: None. AMOUNT: mL CONTRAST: Isovue 370 VOLUME: 81mL Gauge IV RADIATION DOSE SUMMARY: CTDlvol: 55 mGy DLP: 2046 mGycm COMPARISON: CT of the abdomen and pelvis dated November 22, 2024 and PET-CT dated 12/16/2024. MRI of the abdomen dated 11/24/2024. FINDINGS: CT CHEST: Hardware: Right-sided Port-A-Cath with its tip in the SVC. Lymph nodes: Mediastinal adenopathy. Heart and Vasculature: Cardiomegaly. No pericardial effusion. Lungs and Airways: Mild dependent atelectasis. Pleura: No pleural effusion or pneumothorax. Bones: Unremarkable CT ABDOMEN/PELVIS: Liver: Mild periportal edema. Heterogeneous and ill-defined mass of the left hepatic lobe with intrahepatic ductal dilatation. Focal cholangiocarcinoma can not be completely excluded. Gallbladder: Unremarkable. Spleen: Heterogeneous parenchyma of the spleen, underlying Mets can not be excluded. Pancreas: Normal size without evidence of mass surrounding inflammation or ductal dilation. Adrenals: Unremarkable Kidneys: Normal renal sizes. No hydronephrosis. Bladder: Unremarkable Reproductive Organs: Heterogeneous prostate gland with areas of coarse calcification. Bowel: The stomach is grossly unremarkable. Fluid-filled distal small bowel, likely representing ileus. Surgical sutures along the rectum consistent with prior resection. Status post colectomy. Appendix: The appendix is not visualized. Lymph nodes: Retroperitoneal adenopathy. Vasculature: Unremarkable Peritoneum / Retroperitoneum: Unremarkable Soft tissue:. Fluid-filled umbilical hernia. Fluid-filled left inguinal hernia. Bones: Unremarkable CT/CT Chest, Abd, Pel w/Contrast IMPRESSION: Mediastinal adenopathy. Redemonstration of a heterogeneous and ill-defined mass of the left hepatic lob e with intrahepatic ductal dilatation, findings are concerning for focal cholangiocarcinoma. Retroperitoneal adenopathy. Heterogeneous parenchyma of the spleen, suspicious for Mets. Please see other nonacute findings as described above. Reading [facility]
[2025-03-04] MEDS: 0.9% Saline Lock 10 ML Syringe IV (17:00)
== END | disposition home or self-care (01) ==
LOC: CT 15:40
PROVIDERS: PCP Physician Assistant; Referring Provider Internal Medicine Hematology & Oncology; Visit Provider Internal Medicine Hematology & Oncology
DX: 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 of liver and intrahepatic bile duct (principal); C80.1 Malignant (primary) neoplasm, unspecified
CPT/HCPCS: 71260; 74177; Q9967; A4216

== ENCOUNTER 2025-03-10 01:32 | Emergency (ER) | payer MEDICAID, SELFPAY ==
[2025-03-10 01:33] VITALS: BP 135/72; PULSE 103; RESP 21; TEMP 37; O2SAT 100; BMI 25.1
--- OUTSIDE RECORDS SUMMARY | 2025-03-10 01:45 | XMS RPT_ITS | CCD ---
Author Organization [facility] Care Team Providers Care Coroner Forensic Technician Name Role Phone Unavailable Primary Care Provider Unavailabl e SELF Referring Unavailable [facility], Trish Zhao Unavailable Ender RN, Maria M Unavailable Unavailable Dr. Mark Isaacs DO Emergency Provider Dr. Dinah Lazaro DO Admit Provider Dr. Dinah Lazaro DO Other Provider Byron HOOK, Dr. Salena Duckworth Attending Provider Dr. John Love MD Other Provider Dr. Jose Ramachandran DO Primary Care Provider Care Physician, No Primary Primary Care Provider Unavailable Dr. John Love MD Attending Provider Dr. John Love MD Referring Provider Dr. Kailash Gustafson DO Attending Provider Dr. Edinson Kenney MD Attending Provider Dr. Dinah Lazaro DO Referring Provider Dr. Aniket Paniagua MD Attending Provider Dr. Salena Matthews MD Other Provider [phone] Dr. Jose Ramachandran DO Referring Provider Amaury UPPER LEATHER SORTER-C, Mitra Attending Provider [phone] Trish Ortiz MD Attending Provider Amaury UPP[employer] LEATHER SORTER-C, Mitra Referring Provider [phone] Ana Maria UPPER LEATHER SORTER-C, Geeta Attending Provider Andrew HOOK, Dr. Flores Attending Provider Diana HOOK, Dr. Chambers Referring Provider Calos HOOK, Dr. Trejo Attending Provider Johny Clark Primary Care Provider Calos HOOK, Dr. Trejo Referring Provider Calos HOOK, Dr. Trejo Other Provider ISCKARUS, MANSOUR S Referring Unavailable HARLeobardoMAN, LAZARO E Attending Unavailable GIORGIO, LAZARO E Attending Unavailable SELF, SELF Referring Unavailable HICKEY, DIRK E Referring Unavailable HARLeobardoMAN, LAZARO E Admitting Unavailable LAZARO PERRY E Attending Unavailable Johny Clark Attending Provider Diana HOOK, Dr. Chambers Referring Provider MadieJose Referring Unavailable Madie, Jose Primary Care Unavailable Isckarus, Mansour Attending Unavailable Madie, Jose Primary Care Unavailable Isckarus, Mansour Referring Unavailable Isckarus, Mansour Attending Unavailable Isckarus, Mansour Referring Unavailable Isckarus, Mansour Attending Unavailable Marcos PA, [facility] Primary Care Unavailable Madie, Jose Referring Unavailable RobotMatheus hensleyera Attending Unavailable Draket PA, [facility] Primary Care Unavailable Madie, Jose Referring Unavailable Madie, Jose Primary Care Unavailable Rebolledo, Mitra Attending Unavailable Madie, Jose Primary Care Unavailable Isckarus, Mansour Attending Unavailable Rebolledo, Mitra Referring Unavailable Matheus Liveera Attending Unavailable Maya Live Referring Unavailable Marcos PA, [facility] Primary Care Unavailable Isckarus, Mansour Referring Unavailable Isckarus, Mansour Attending Unavailable Wayshai PA, Johny Primary Care Unavailable Madie, Jose Primary Care Unavailable Salena Matthews Attending Unavailable Tejas Dinah Admitting Unavailable Tejas Dinah Consulting Unavailable John Love Consulting Unavailable Care Physician, No Primary Primary Care Unava ilable Tejas, Dinah Admitting Unavailable Tejas, Dinah Attending Unavailable Tejas, Dinah Consulting Unavailable John Love F Attending Unavailable John Love F Consulting Unavailable John Love F Referring Unavailable FriendLandonn Attending Unavailable Aniket Paniagua Attending Unavailable Care Physician, No Primary Primary Care Unava ilable Robotham, Maya Referring Unavailable Robotayden, Maya Attending Unavailable Robotham, Maya Consulting Unavailable Johny Clark Primary Care Unavailable Madie, Jose Primary Care Unavailable Byron, Salena Donita Attending Unavailable Koram, Salena Donita Consulting Unavailable Madie, Jose Referring Unavailable Madie, Jose Primary Care Unavailable IsckarTrish bryant Attending Unavailable Madie, Jose Referring Unavailable Madie, Jose Primary Care Unavailable AndrewIsrrael castilloril Attending Unavailable Madie, Jose Referring Unavailable Madie, Jose Primary Care Unavailable Ana Maria UPPER LEATHER SORTER, Geeta Attending Unavailable Madie, Jose Referring Unavailable Johny Clark Primary Care Unavailable Johny Clark Attending Unavailable Allergies Allergy Classification Reported Allergen(s) Allergy Type Date of Onset Reaction(s) Facility (4 sources) Penicillins Allergy to substance 0 PT UNSURE OF REACTION [facility] (1 source) Acetaminophen Drug Allergy 5 Itching [facility] (1 source) Penicillins Propensity to adverse reactions to drug 5 Rash [facility] (3 sources) Acetaminophen Drug Allergy 5 Itching [facility] (1 source) Acetaminophen Drug Allergy 5 [facility] (1 source) Penicillins Drug allergy (disorder) 5 [facility] Medications Current Medications Medication Drug Class(es) Dates Sig (Normalized) Sig (Original) sugar-free cholestyramine resin 4000 mg powder for oral suspension (1 source) Bile Acid Sequestrant Start: 12-23-2024 take 4 g by mouth three times daily at mealtime Prevalite 4 g Pack packet use 4 grams with a meal BY MOUTH THREE TIMES DAILY DIRECTED - avoid other meds within 1 hour before or 4-6 hours after dose 12/23/2024 Active Cholestyramine-Aspart sabina (Cholestyramine Light) 4 gram powder (3 sources) Start: 12-05-2024 Cholestyramine-As partame (Cholestyramine Light) 4 gram powder Active 4 g PO THREE TIMES A DAY 239.4 December 05, 2024 1:00am administer w/meal; avoid other meds within 1hr before or 4-6hr after dose ferrous gluconate (1 source) Ferrous Gluconat e (IRON 27 PO) Take by mouth. Active furosemide 20 mg oral tablet (4 sources) Loop Diuretic Start: 11-26-2024 take 1 tablet by mouth once daily Furosemide (Lasix) 20 mg tablet Active 20 mg PO DAILY November 26, 2024 1:00am 12 hr guaiFENesin 1200 mg extended release oral tablet (4 sources) Start: 11-22-2024 take 1 tablet by mouth once daily, then take 1 tablet by mouth every twelve hours Guaifenesin (Mucinex) 1,200 mg tablet extended release 12hr Active 1200 mg PO DAILY November 22, 2024 1:00am take 1 tablet by mouth twice sandra ly guaiFENesin 600 MG Tab SR 12 HR tablet SR Take 1 tablet by mouth 2 times daily. Active loperamide hydrochloride 2 mg oral capsule (3 sources) Opioid Agonist Start: 02-09-2025 take 1 capsule by mouth once daily Loperamide (Imodium A-D) 2 mg capsule Active 2 mg PO daily February 09, 2025 12:00am 24 hr metoprolol succinate 25 mg extended release oral tablet (3 sources) beta-Adrenergic Naheed Start: 02-06-2025 take 1 tablet by mouth once daily Metoprolol Succinate (Toprol Xl) 25 mg tablet extended release 24 hr Active 25 mg PO daily February 06, 2025 12:00am pantoprazole 40 mg delayed release oral tablet (4 sources) Proton Pump Inhibitor Start: 11-26-2024 take 1 tablet by mouth once daily Pantoprazole 40 mg tablet,delayed release (DR/EC) Active 40 mg PO DAILY November 26, 2024 1:00am Completed/Discontinued Medications Medication Drug Class(es) Dates Sig (Normalized) Sig (Original) acetaminophen 325 mg oral tablet (1 source) Start: 01-20-2025 End: 01-20-2025 take 1 tablet by mouth every four hours as needed 650 mg, Oral, EVERY 4 HOURS NEEDED, Starting on Sun01/20/25 at 1641, Until Sun01/20/25 at 1958, Mild Pain, Maximum dose of acetaminophen is 4000 mg from all sources in 24 hours., Post-op/Post-Proc Acetaminophen / oxyCODONE (1 source) Opioid Agonist Start: 01-20-2025 End: 01-20-2025 take 1 tablet by mouth every four hours as needed oxyCODONE-acetamino phen (PERCOCET) 5-325 MG per tablet 1 tablet cyclobenzaprine hydrochloride 10 mg oral tablet (4 sources) Muscle Relaxant Start: 06-25-2020 End: 11-22-2024 take 1 tablet by mouth three times daily as needed for muscle spasms Cyclobenzaprine 10 MG tablet Discontinued 10 mg PO THREE TIMES A DAY as needed for Muscle Spasm June 25, 2020 12:00am November 22, 2024 3:07pm HYDROmorphone (DILAUDID) injection 0.5 mg (1 source) Start: 01-20-2025 End: 01-20-2025 take 0.5 mg intravenously every three hours as needed HYDROmorphone (DILAUDID) injection 0.5 mg ivermectin 3 mg oral tablet (3 sources) Antiparasitic, Pediculicide Start: 11-22-2024 End: 11-26-2024 take 1 tablet by mouth once daily Ivermectin 3 mg tablet Discontinued 3 mg PO DAILY November 22, 2024 1:00am November 26, 2024 5:33pm naproxen 500 mg oral tablet (4 sources) Nonsteroidal Anti-inflammatory Drug Start: 06-25-2020 End: 11-22-2024 take 1 tablet by mouth twice daily as needed Naproxen 500 MG tablet Discontinued 500 mg PO TWICE DAILY NEEDED June 25, 2020 12:00am November 22, 2024 3:07pm 2 ml ondansetron 2 mg/ml injection (1 source) Serotonin-3 Receptor Antagonist Start: 01-20-2025 End: 01-20-2025 take 4 mg intravenously every four hours as needed 4 mg, Intravenous, EVERY 4 HOURS NEEDED, Starting on Sun01/20/25 at 1641, Until Sun01/20/25 at 1958, Nausea / Vomiting, 1st Line Nausea / Vomiting, Post-op/Post-Proc potassium chloride 10 meq extended release oral tablet (4 sources) Start: 11-26-2024 End: 02-03-2025 take 1 tablet by mouth once daily Potassium Chloride 10 mEq tablet extended release Discontinued 10 meq PO DAILY November 26, 2024 1:00am February 03, 2025 9:25am prochlorperazine 5 mg/ml injectable solution (1 source) Phenothiazine Start: 01-20-2025 End: 01-20-2025 take 10 mg intravenously every six hours as needed 10 mg, Intravenous, EVERY 6 HOURS NEEDED, Starting on Sun01/20/25 at 1641, Until Sun01/20/25 at 1958, Nausea / Vomiting, 2nd Line Nausea / Vomiting, For IV route: dilute dose with 10mL normal saline and give by slow IV push at a rate of 5mg/min. Maximum of 40mg/day., Post-op/Post-Proc 1000 ml sodium chloride 9 mg/ml injection (1 source) Start: 01-20-2025 End: 01-20-2025 Intravenous, at 50 mL/hr, CONTINUOUS, Starting on Sun01/20/25 at 1200, Until Sun01/20/25 at 1958, Pre-op/Pre-Proc traMADol hydrochloride 50 mg oral tablet (3 sources) Opioid Agonist Start: 02-11-2025 End: 02-16-2025 take 1 tablet by mouth every six hours as needed for pain Tramadol 50 mg tablet Discontinued 50 mg PO EVERY 6 HOURS as needed for pain 5 2 February 11, 2025 12:00am February 16, 2025 2:02pm Problems Active Problems Problem Classification Problem Date Documented Date Episodic/Chronic Acute and unspecified renal failure (4 sources) Injury of kidney; Translations: [Acute kidney failure, unspecified] 06-10-2020 Episodic Administrative/social admission (13 sources) Patient encounter status; Translations: [Counseling, unspecified] Onset: 5 02-05-2025 Episodic Asthma (4 sources) Asthma; Translations: [Unspecified asthma, uncomplicated] 06-10-2020 Chronic Comment on above: NO INHALER USED Cancer of liver and intrahepatic bile duct (11 sources) Cholangiocarcinoma of biliary tract; 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] 02-04-2025 Chronic Cardiac and circulatory congenital anomalies (5 sources) Bicuspid aortic valve; Translations: [Congenital insufficiency of aortic valve] Onset: 5 06-10-2020 Chronic Cardiac dysrhythmias (9 sources) Atrial fibrillation; Translations: [Unspecified atrial fibrillation] Onset: 5 02-04-2025 Chronic Deficiency and other anemia (5 sources) Iron deficiency anemia due to blood loss; Translations: [Iron deficiency anemia secondary to blood loss (chronic)] 12-10-2024 Chronic Deficiency and other anemia (2 sources) Iron deficiency anemia secondary to blood loss (chronic); Translations: [Iron deficiency anemia secondary to blood loss (chronic)] Onset: 5 Chronic Deficiency and other anemia (9 sources) Anemia; Translations: [Anemia, unspecified] 12-04-2024 Episodic Deficiency and other anemia (1 source) Iron deficiency anemia, unspecified; Translations: [Iron deficiency anemia, unspecified] Onset: 5 Episodic Deficiency and other anemia (6 sources) Deficiency and other anemia E Codes: Natural/environment (1 source) Insect bite - wound; Translations: [Bitten or stung by nonvenomous insect and other nonvenomous arthropods, initial encounter] 07-25-2024 Episodic Heart valve disorders (11 sources) Aortic stenosis, non-rheumatic ; Translations: [Nonrheumatic aortic (valve) stenosis] 06-10-2020 Chronic Comment on above: at [facility] Heart valve disorders (6 sources) Heart murmur; Translations: [Cardiac murmur, unspecified] Onset: 5 02-04-2025 Episodic Lymphadenitis (20 sources) Mesenteric lymphadenopathy; Translations: [Localized enlarged lymph nodes] Onset: 5 02-03-2025 Episodic Malignant neoplasm without specification of site (4 sources) Malignant (primary) neoplasm, unspecified; Translations: [Malignant (primary) neoplasm, unspecified] Onset: 5 Chronic Nonspecific chest pain (5 sources) Chest pain; Translations: [Chest pain, unspecified] Onset: 5 06-10-2020 Episodic Other aftercare (1 source) Encounter for adjustment and management of vascular access device; Translations: [Encounter for adjustment and management of vascular access device] Onset: 5 Episodic Other gastrointestinal disorders (15 sources) Ascites; Translations: [Other ascites] 02-04-2025 Episodic Other liver diseases (6 sources) Liver mass; Translations: [Hepatomegaly, not elsewhere classified] 11-26-2024 Episodic Other liver diseases (2 sources) Hepatomegaly, not elsewhere classified; Translations: [Hepatomegaly, not elsewhere classified] Onset: 5 Episodic Other lower respiratory disease (9 sources) Dyspnea on exertion; Translations: [Other forms of dyspnea] 02-04-2025 Episodic Other lower respiratory disease (2 sources) Other forms of dyspnea; Translations: [Other forms of dyspnea] Onset: 5 Episodic Regional enteritis and ulcerative colitis (20 sources) Chronic ulcerative pancolitis; Translations: [Ulcerative (chronic) pancolitis without complications] Onset: 5 04-16-2020 Chronic Comment on above: Hx ileal-anal anasto mosis with J-pouch Residual codes; unclassified (6 sources) Edema of lower extremity; Translations: [Localized edema] 12-04-2024 Episodic Residual codes; unclassified (2 sources) Other specified health status; Translations: [Other specified health status] Onset: 5 Episodic Secondary malignancies (18 sources) Secondary malignant neoplasm of liver; Translations: [Secondary malignant neoplasm of liver and intrahepatic bile duct] 12-10-2024 Chronic Secondary malignancies (4 sources) Secondary malignant neoplasm of liver and intrahepatic bile duct; Translations: [Secondary malignant neoplasm of liver and intrahepatic bile duct] Onset: 5 Chronic Secondary malignancies (1 source) Malignant ascites; Translations: [Malignant ascites] Onset: 5 Chronic Systemic lupus erythematosus and connective tissue disorders (4 sources) Eosinophilic granulomatosis with polyangiitis; 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 [Churg-Geronimo]] 06-10-2020 Chronic Unclassified (1 source) No additional problems on file Unclassified (9 sources) C78.7 - Secondary malignant neoplasm of liver and intrahepatic bile duct,C80.1 - Malignant (primary) neoplasm, unspecified Unclassified (3 sources) C78.7 - Secondary malignant neoplasm of liver and intrahepatic bile duct,C80.1 - Malignant (primary) neoplasm, unspecified,I48.91 - Unspecified atrial fibrillation Unclassified (3 sources) J45.909 - Unspecified asthma, uncomplicated,Z95.4 - Presence of other heart-valve replacement,N17.9 - Acute kidney failure, unspecified,R07.9 - Chest pain, unspecified,Q23.1 - Congenital insufficiency of aortic valve,I35.0 - Nonrheumatic aortic (valve) stenosis,R06.09 - Other forms of dyspnea,I48.91 - Unspecified atrial fibrillation,K51.811 - Other ulcerative colitis with rectal bleeding,C78.7 - Secondary malignant neoplasm of liver and intrahepatic bile duct,C80.1 - Malignant (primary) neoplasm, unspecified,D50.0 - Iron deficiency anemia secondary to blood loss (chronic) Past or Other Problems Problem Classification Problem Date Documented Da te Episodic/Chronic Deficiency and other anemia (1 source) Anemia, unspecified; Translations: [Anemia, unspecified] Onset: 5 Episodic Gastrointestinal hemorrhage (7 sources) Acute gastrointestinal hemorrhage; Translations: [Gastrointestinal hemorrhage, unspecified] Onset: 5 12-04-2024 Episodic Malaise and fatigue (7 sources) Fatigue; Translations: [Other fatigue] Onset: 5 12-04-2024 Episodic Residual codes; unclassified (1 source) Localized edema; Translations: [Localized edema] Onset: 5 Episodic Thyroid disorders (1 source) Disorder of thyroid, unspecified; Translations: [Disorder of thyroid, unspecified] Onset: 5 Episodic Results Test Name Value Interpretation Reference Range Facility CBC W/Diff, Automatedon 05-2 Absolute Neut Normal 2.0-7.7 [facility] Comment on above: Result Comment: Canc elled via OM: Physician Authorized Performed By: #### L [id number], L100.0100 ####[facility] [address] [facility] [address] HCT Normal 40-54 [facility] Comment on above: Result Comment: Canc elled via OM: Physician Authorized Performed By: #### L [id number], L100.0100 ####[facility] [address] [place], [address] HGB Normal 13.0-16.5 [facility] Comment on above: Result Comment: Canc elled via OM: Physician Authorized Performed By: #### L 500.4050, L100.0100 ####[facility] [address] [place], [address] MCH Normal 27.0-32.0 [facility] Comment on above: Result Comment: Canc elled via OM: Physician Authorized Performed By: #### L 500.4050, L100.0100 ####[facility] [address] [place], [address] MCHC Normal 32-36 [facility] Comment on above: Result Comment: Canc elled via OM: Physician Authorized Performed By: #### L 500.4050, L100.0100 ####[facility] [address] [place], [address] MCV Normal 80-94 [facility] Comment on above: Result Comment: Canc elled via OM: Physician Authorized Performed By: #### L 500.4050, L100.0100 ####[facility] [address] [place], [address] NEUT% Normal 47-70 [facility] Comment on above: Result Comment: Canc elled via OM: Physician Authorized Performed By: #### L 500.4050, L100.0100 ####[facility] [address] [place], [address] PLT Normal 150-450 [facility] Comment on above: Result Comment: Canc elled via OM: Physician Authorized Performed By: #### L 500.4050, L100.0100 ####[facility] [address] [place], [address] RBC Normal 4.6-6.2 [facility] Comment on above: Result Comment: Canc elled via OM: Physician Authorized Performed By: #### L 500.4050, L100.0100 ####[facility] [address] [place], [address] RDW CV Normal 11.6-14.6 [facility] Comment on above: Result Comment: Canc elled via OM: Physician Authorized Performed By: #### L 500.4050, L100.0100 ####[facility] [address] [place], [address] RDW SD Normal 35.1-43.9 [facility] Comment on above: Result Comment: Canc elled via OM: Physician Authorized Performed By: #### L 500.4050, L100.0100 ####[facility] [address] [place], [address] WBC Normal 4.4-11.0 [facility] Comment on above: Result Comment: Canc elled via OM: Physician Authorized Performed By: #### L 500.4050, L100.0100 ####[facility] [address] [place], [address] CT Chest, Abd, Pel w/Contras ton 03-04-2025 CT Chest, Abd, Pel w/Contrast [facility] Imaging Services [address] [place] [address] CT Chest, Abd, Pel w/Contrast MR#: [id number] Acct: [id number] Name: DENY BRONSON Shai Rep #: [id number] : 1970 M 55 From: Yumi Lopes DO PCP: JACK Mccall Status: REG CLI Study: CT Chest, Abd, Pel w/Contrast Date of Exam: Exam# [id number] Ordering Dr: Trish Ortiz MD PROCEDURE: CT CHEST, ABD, PEL W/CONTRAST 03/04/2025 REASON FOR EXAM: F/U METS CANCER UNKNOWN PRIMARY TECHNIQUE: Chest, abdomen and pelvis CT with intravenous contrast. Coronal and Sagittal reconstruction series were provided. One or more dose reduction techniques were used (e.g., Automated exposure control, adjustment of the mA and/or kV according to patient size, use of iterative reconstruction technique. PATIENT PREPARATION: Per protocol ORAL CONTRAST TYPE: None. AMOUNT: mL CONTRAST: Isovue 370 VOLUME: 81mL Gauge IV RADIATION DOSE SUMMARY: CTDlvol: 55 mGy DLP: 2046 mGycm COMPARISON: CT of the abdomen and pelvis dated November 22, 2024 and PET-CT dated 12/16/2024. MRI of the abdomen dated 11/24/2024. FINDINGS: CT CHEST: Hardware: Right-sided Port-A-Cath with its tip in the SVC. Lymph nodes: Mediastinal adenopathy. Heart and Vasculature: Cardiomegaly. No pericardial effusion. Lungs and Airways: Mild dependent atelectasis. Pleura: No pleural effusion or pneumothorax. Bones: Unremarkable CT ABDOMEN/PELVIS: Liver: Mild periportal edema. Heterogeneous and ill-defined mass of the left hepatic lobe with intrahepatic ductal dilatation. Focal cholangiocarcinoma can not be completely excluded. Gallbladder: Unremarkable. Spleen: Heterogeneous parenchyma of the spleen, underlying Mets can not be excluded. Pancreas: Normal size without evidence of mass surrounding inflammation or ductal dilation. Adrenals: Unremarkable Kidneys: Normal renal sizes. No hydronephrosis. Bladder: Unremarkable Reproductive Organs: Heterogeneous prostate gland with areas of coarse calcification. Bowel: The stomach is grossly unremarkable. Fluid-filled distal small bowel, likely representing ileus. Surgical sutures along the rectum consistent with prior resection. Status post colectomy. Appendix: The appendix is not visualized. Lymph nodes: Retroperitoneal adenopathy. Vasculature: Unremarkable Peritoneum / Retroperitoneum: Unremarkable Soft tissue:. Fluid-filled umbilical hernia. Fluid-filled left inguinal hernia. Bones: Unremarkable CT/CT Chest, Abd, Pel w/Contrast IMPRESSION: Mediastinal adenopathy. Redemonstration of a heterogeneous and ill-defined mass of the left hepatic lobe with intrahepatic ductal dilatation, findings are concerning for focal cholangiocarcinoma. Retroperitoneal adenopathy. Heterogeneous parenchyma of the spleen, suspicious for Mets. Please see other nonacute findings as described above. Reading Location: [facility] CC: Dr. Trish Ortiz MD; JACK Mccall Oncology Registrar: Signed Normal [facility] Comprehensive Metabolic Prof ilon 03-04-2025 ALB Normal 3.5-5.0 [facility] Comment on above: Result Comment: Canc elled via OM: Physician Authorized Performed By: #### L 500.4050, L100.0100 ####[facility] [address] [place], [address] ALK PHOS Normal 40-129 [facility] Comment on above: Result Comment: Canc elled via OM: Physician Authorized Performed By: #### L 500.4050, L100.0100 ####[facility] [address] [place], [address] ALT Normal <=46 [facility] Comment on above: Result Comment: Canc elled via OM: Physician Authorized Performed By: #### L 500.4050, L100.0100 ####[facility] [address] [place], [address] AST Normal <=37 [facility] Comment on above: Result Comment: Canc elled via OM: Physician Authorized Performed By: #### L 500.4050, L100.0100 ####[facility] [address] [place], [address] BUN Normal 4-19 [facility] Comment on above: Result Comment: Canc elled via OM: Physician Authorized Performed By: #### L 500.4050, L100.0100 ####[facility] [address] [place], [address] BUN/CRE Normal 10-20 [facility] Comment on above: Result Comment: Canc elled via OM: Physician Authorized Performed By: #### L 500.4050, L100.0100 ####[facility] [address] [place], [address] Calcium Normal 7.6-11.0 [facility] Comment on above: Result Comment: Canc elled via OM: Physician Authorized Performed By: #### L 500.4050, L100.0100 ####[facility] [address] [place], [address] CL Normal 98-108 [facility] Comment on above: Result Comment: Canc elled via OM: Physician Authorized Performed By: #### L 500.4050, L100.0100 ####[facility] [address] [place], [address] CO2 Normal 21.0-32.0 [facility] Comment on above: Result Comment: Canc elled via OM: Physician Authorized Performed By: #### L 500.4050, L100.0100 ####[facility] [address] [place], [address] CREAT,SERUM Normal 0.70-1.20 [facility] Comment on above: Result Comment: Canc elled via OM: Physician Authorized Performed By: #### L 500.4050, L100.0100 ####[facility] [address] [place], [address] eGFR Normal >60 [facility] Comment on above: Result Comment: Canc elled via OM: Physician Authorized Performed By: #### L 500.4050, L100.0100 ####[facility] [address] [place], [address] GAP Normal 5-15 [facility] Comment on above: Result Comment: Canc elled via OM: Physician Authorized Performed By: #### L 500.4050, L100.0100 ####[facility] [address] [place], [address] GLU Normal 70-99 [facility] Comment on above: Result Comment: Canc elled via OM: Physician Authorized Performed By: #### L 500.4050, L100.0100 ####[facility] [address] [place], [address] Potassium Normal 3.3-5.1 [facility] Comment on above: Result Comment: Canc elled via OM: Physician Authorized Performed By: #### L 500.4050, L100.0100 ####[facility] [address] [place], [address] T BILI Normal 0.00-1.30 [facility] Comment on above: Result Comment: Canc elled via OM: Physician Authorized Performed By: #### L 500.4050, L100.0100 ####[facility] [address] [place], [address] T PROT Normal 5.9-8.4 [facility] Comment on above: Result Comment: Canc elled via OM: Physician Authorized Performed By: #### L 500.4050, L100.0100 ####[facility] [address] [place], [address] Comprehensive Metabolic Profil Normal 133-145 [facility] Comment on above: Result Comment: Canc elled via OM: Physician Authorized Performed By: #### L 500.4050, L100.0100 ####[facility] [address] [place], [address] Absolute lymphocyte countOrd ered By: Judah Montgomery on 02-26-2025 Lymphocytes Auto (Unsp spec) [#/Vol] 0.87 10*3/uL 0.83-4.51 [facility] Absolute neutrophil countOrd ered By: Judah Montgomery on 02-26-2025 Neutrophils (Bld) [#/Vol] 7.1 10*3/uL 2.0-7.7 [facility] Activated partial thrombopla stin time (aPTT) in platelet poor plasma by coagulation aOrdered By: Judah Montgomery on 02-26-2025 aPTT Coag (PPP) [Time] 32.4 s 24.1-36.2 [facility] Automated lymphocyte count a s percentage of total leukocytesOrdered By: Judah Montgomery on 02-26-2025 Lymphocytes/100 WBC Auto (Unsp spec) 9.2 % Low 19-41 [facility] Basophil percentageOrdered B y: Judah Montgomery on 02-26-2025 Basophils/100 WBC (Bld) 0.7 % 0-[address] [facility] Biopsy/Inj or Needle Placeme nton 02-26-2025 Biopsy/Inj or Needle Placement [facility] Imaging Services [address] [place], [place] [address] Biopsy/Inj or Needle Placement MR#: [id number] Acct: [id number] Name: DENY BRONSON Rep #: [id number] : 1970 M 55 From: Judah sevilla MD PCP: JACK Mccall Status: REG CLI Study: Biopsy/Inj or Needle Placement Date of Exam: 0 02/26/25 Exam# [id number] Ordering Dr: Trish Ortiz MD PROCEDURE: BIOPSY/INJ OR NEEDLE PLACEMENT 02/26/2025 REASON FOR EXAM: Hepatic mass. TECHNIQUE: CT-guided liver biopsy. The procedure as well as the benefits and possible complications including infection and bleeding were explained to the patient. Informed consent was obtained. The patient was in the supine position. The overlying skin was prepped and draped in the usual sterile fashion. Conscious sedation was performed. The patient received 2 mg of Versed and 50 mcg of fentanyl intravenously. Conscious sedation was started at 8:56 a.m. and terminated at 9:17 a.m.. The patient was independently monitored by the department nurse. Following local anesthetic application, an 18 gauge core biopsy needle was placed into the mass in the left lobe of the liver. 5 core biopsies were obtained. The specimen was deemed adequate for evaluation by the pathologist. One or more dose reduction techniques were used (e.g., Automated exposure control, adjustment of the mA and/or kV according to patient size, use of iterative reconstruction technique). RADIATION DOSE SUMMARY: CTDlvol: 20.5 mGy DLP: 364.5 mGycm COMPARISON: Prior CT scan of the abdomen dated November 25, 2024. FINDINGS: Successful biopsy of the mass in the left lobe of the liver. CT/Biopsy/Inj or Needle Placement IMPRESSION: Successful CT-guided biopsy of the mass in the left lobe of the liver utilizing an 18 gauge core biopsy needle. The patient tolerated the procedure well. Reading Location: [place] [address] CC: Dr. Trish Ortiz MD; JACK Mccall Oncology Registrar: Signed Normal [facility] Blood spherocyte detection b y light microscopyOrdered By: Judah Montgomery on 02-26-2025 Spherocytes LM Ql (Bld) RARE High W [facility] CBC W/Diff, Automatedon 02-06 SPHEROCYTE RARE Abnormal [facility] Comment on above: Performed By: #### L 100.0100, L300.3900, L300.4310 ####[facility] [address] [place], [address] Anisocytosis Ql (Bld) 2+ Normal [facility] Comment on above: Performed By: #### L 100.0100, L300.3900, L300.4310 ####[facility] [address] [place], [place], [address] Eosinophil percentageOrdered By: Judah Montgomery on 02-26-2025 Eosinophils/100 WBC (Bld) 5.2 % High 0-5 [facility] Erythrocyte distribution wid th ratioOrdered By: Judah Montgomery on 02-26-2025 Erythrocyte distribution width (RBC) [Ratio] 21.6 % High 11.6-14.6 [facility] Erythrocyte distribution wid th standard deviationOrdered By: Judah Montgomery on 02-26-2025 Erythrocyte distribution width (RBC) [Ratio] 56.4 fl High 35.1-43.9 [facility] Hematocrit Auto (Bld) [Volum e fraction]Ordered By: Judah Montgomery on 02-26-2025 Hematocrit (Bld) [Volume fraction] 29.9 % Low 40-54 [facility] Hemoglobin measurementOrdere d By: Judah Montgomery on 02-26-2025 Hemoglobin (Bld) [Mass/Vol] 8.8 g/dL Low 13.0-16.5 [facility] Immature granulocytes/100 WB C Auto (Bld)Ordered By: Judah Montgomery on 02-26-2025 Immature granulocytes/100 WBC (Bld) 0.300 % 0.0-0.9 [facility] Comment on above: IG% - Immature Granu locytes (promyelocytes, myelocytes and metamyelocytes) > 1% indicates that a LEFT SHIFT is Present. International normalized rat io (INR) calculationOrdered By: Judah Montgomery on 02-26-2025 INR Coag (Bld) [Relative time] 1.2 {INR} [facility] Laboratory - Hematology and Cell countsOrdered By: Juadh Montgomery on 02-26-2025 Anisocytosis Ql (Bld) 2+ [facility] MCV (mean corpuscular volume ) determinationOrdered By: Judah Montgomery on 02-26-2025 MCV (RBC) [Entitic vol] 75.5 fL Low 80-[address] [facility] Mean corpuscular hemoglobin (MCH) determinationOrdered By: Judah Montgomery on 02-26-2025 MCH (RBC) [Entitic mass] 22.2 pg Low 27.0-32.0 [facility] Mean corpuscular hemoglobin concentration (MCHC) determinationOrdered By: Judah Montgomery on 02-26-2025 MCHC (RBC) [Mass/Vol] 29.4 g/dL Low 32-36 [facility] Mean platelet volume determi nationOrdered By: Judah Montgomery on 02-26-2025 Platelet mean volume (Bld) [Entitic vol] 9.6 fL 6.2-12.0 [facility] Monocyte percentageOrdered B y: Judah Montgomery on 02-26-2025 Monocytes/100 WBC (Bld) 9.2 % 0-[address] [facility] Neutrophil percentageOrdered By: Judah Montgomery on 02-26-2025 Neutrophils/100 WBC (Bld) 75.4 % High 47-70 [facility] Nucleated red blood cell per centageOrdered By: Judah Montgomery on 02-26-2025 Nucleated RBC/100 WBC (Bld) [Ratio] 0 % 0-5 [facility] Partial Thromboplast Timeon 02-26-2025 aPTT Coag (Bld) [Time] 32.4 s Normal 24.1-36.2 [facility] Comment on above: Performed By: #### L 100.0100, L300.3900, L300.4310 ####[facility] [address] [place], [place], [address] Platelet countOrdered By: Isidoro Montgomery on 02-26-2025 Platelets (Bld) [#/Vol] 305 10*3/uL 150-450 [facility] Prothrombin Time w/INRon INR Coag (PPP) [Relative time] 1.2 {INR} Normal [facility] Comment on above: Performed By: #### L 100.0100, L300.3900, L300.4310 ####[facility] [address] [place], [address] PT Coag (PPP) [Time] 15.1 s High 11.7-14.9 [facility] Comment on above: Performed By: #### L 100.0100, L300.3900, L300.4310 ####[facility] [address] [place], [address] Prothrombin timeOrdered By: Judah Montgomery on 02-26-2025 PT Coag (PPP) [Time] 15.1 s High 11.7-14.9 [facility] RBC Auto (Bld) [#/Vol]Ordere d By: Judah Montgomery on 02-26-2025 RBC (Bld) [#/Vol] 3.96 10*6/uL Low 4.6-6.2 [facility] White blood cell (WBC) count Ordered By: Judah Montgomery on 02-26-2025 WBC (Bld) [#/Vol] 9.4 10*3/uL 4.4-11.0 [facility] CBC W/Diff, Automatedon 02-05 Absolute Neut Normal 2.0-7.7 [facility] Comment on above: Result Comment: NO S PECIMENS COLLECTED Performed By: #### L 500.4050, L100.0100 ####[facility] [address] [place], [address] HCT Normal 40-54 [facility] Comment on above: Result Comment: NO S PECIMENS COLLECTED Performed By: #### L 500.4050, L100.0100 ####[facility] [address] [place], [address] HGB Normal 13.0-16.5 [facility] Comment on above: Result Comment: NO S PECIMENS COLLECTED Performed By: #### L 500.4050, L100.0100 ####[facility] [address] [place], [address] MCH Normal 27.0-32.0 [facility] Comment on above: Result Comment: NO S PECIMENS COLLECTED Performed By: #### L 500.4050, L100.0100 ####[facility] [address] [place], [address] MCHC Normal 32-36 [facility] Comment on above: Result Comment: NO S PECIMENS COLLECTED Performed By: #### L 500.4050, L100.0100 ####[facility] [address] [place], [address] MCV Normal 80-94 [facility] Comment on above: Result Comment: NO S PECIMENS COLLECTED Performed By: #### L 500.4050, L100.0100 ####[facility] [address] [place], [address] NEUT% Normal 47-70 [facility] Comment on above: Result Comment: NO S PECIMENS COLLECTED Performed By: #### L 500.4050, L100.0100 ####[facility] [address] [place], [address] PLT Normal 150-450 [facility] Comment on above: Result Comment: NO S PECIMENS COLLECTED Performed By: #### L 500.4050, L100.0100 ####[facility] [address] [place], [address] RBC Normal 4.6-6.2 [facility] Comment on above: Result Comment: NO S PECIMENS COLLECTED Performed By: #### L 500.4050, L100.0100 ####[facility] [address] [place], [address] RDW CV Normal 11.6-14.6 [facility] Comment on above: Result Comment: NO S PECIMENS COLLECTED Performed By: #### L 500.4050, L100.0100 ####[facility] [address] [place], [address] RDW SD Normal 35.1-43.9 [facility] Comment on above: Result Comment: NO S PECIMENS COLLECTED Performed By: #### L 500.4050, L100.0100 ####[facility] [address] [place], [address] WBC Normal 4.4-11.0 [facility] Comment on above: Result Comment: NO S PECIMENS COLLECTED Performed By: #### L 500.4050, L100.0100 ####[facility] [address] [place], [address] Comprehensive Metabolic Prof ilon 02-18-2025 ALB Normal 3.5-5.0 [facility] Comment on above: Result Comment: NO S PECIMENS COLLECTED Performed By: #### L 500.4050, L100.0100 ####[facility] [address] [place], [address] ALK PHOS Normal 40-129 [facility] Comment on above: Result Comment: NO S PECIMENS COLLECTED Performed By: #### L 500.4050, L100.0100 ####[facility] [address] [place], [address] ALT Normal <=46 [facility] Comment on above: Result Comment: NO S PECIMENS COLLECTED Performed By: #### L 500.4050, L100.0100 ####[facility] [address] [place], [address] AST Normal <=37 [facility] Comment on above: Result Comment: NO S PECIMENS COLLECTED Performed By: #### L 500.4050, L100.0100 ####[facility] [address] [place], [address] BUN Normal 4-19 [facility] Comment on above: Result Comment: NO S PECIMENS COLLECTED Performed By: #### L 500.4050, L100.0100 ####[facility] [address] [place], [address] BUN/CRE Normal 10-20 [facility] Comment on above: Result Comment: NO S PECIMENS COLLECTED Performed By: #### L 500.4050, L100.0100 ####[facility] [address] [place], [address] Calcium Normal 7.6-11.0 [facility] Comment on above: Result Comment: NO S PECIMENS COLLECTED Performed By: #### L 500.4050, L100.0100 ####[facility] [address] [place], [address] CL Normal 98-108 [facility] Comment on above: Result Comment: NO S PECIMENS COLLECTED Performed By: #### L 500.4050, L100.0100 ####[facility] [address] [place], [address] CO2 Normal 21.0-32.0 [facility] Comment on above: Result Comment: NO S PECIMENS COLLECTED Performed By: #### L 500.4050, L100.0100 ####[facility] [address] [place], [address] CREAT,SERUM Normal 0.70-1.20 [facility] Comment on above: Result Comment: NO S PECIMENS COLLECTED Performed By: #### L 500.4050, L100.0100 ####[facility] [address] [place], [address] eGFR Normal >60 [facility] Comment on above: Result Comment: NO S PECIMENS COLLECTED Performed By: #### L 500.4050, L100.0100 ####[facility] [address] [place], [address] GAP Normal 5-15 [facility] Comment on above: Result Comment: NO S PECIMENS COLLECTED Performed By: #### L 500.4050, L100.0100 ####[facility] [address] [place], [address] GLU Normal 70-99 [facility] Comment on above: Result Comment: NO S PECIMENS COLLECTED Performed By: #### L 500.4050, L100.0100 ####[facility] [address] [place], [address] Potassium Normal 3.3-5.1 [facility] Comment on above: Result Comment: NO S PECIMENS COLLECTED Performed By: #### L 500.4050, L100.0100 ####[facility] [address] [place], [address] T BILI Normal 0.00-1.30 [facility] Comment on above: Result Comment: NO S PECIMENS COLLECTED Performed By: #### L 500.4050, L100.0100 ####[facility] [address] [place], [address] T PROT Normal 5.9-8.4 [facility] Comment on above: Result Comment: NO S PECIMENS COLLECTED Performed By: #### L 500.4050, L100.0100 ####[facility] [address] [place], [address] Comprehensive Metabolic Profil Normal 133-145 [facility] Comment on above: Result Comment: NO S PECIMENS COLLECTED Performed By: #### L 500.4050, L100.0100 ####[facility] [address] [place], [address] Internal Medicine Office Vis iton 02-13-2025 Internal Medicine Office Visit [facility] [address] [place] [address] [place] [address] OFFICE VISIT Date of Service: 02/13/25 MR#: [id number] Acct: [id number] Name: DENY BRONSON Shai Rep #: [id number] : 1970 Provider: JACK Mccall Age/Sex: 55/M Location: [facility] Status: Signed Intake Vital Signs 02/03/25 09:22 02/11/25 10:58 02/13/25 10:32 Height 6 ft 3 in 6 ft 3 in 6 ft 3 in Weight: 207 lb 4 oz BMI 25.9 BP 98/50 L Blood Pressure Location Lt brachial Position Sitting Respiration 16 Pulse 82 Pulse Source Monitor Temp 97.4 F L Temp Source Temporal Pulse Oximetry (%) 97 Oxygen Delivery Method room air Intake Visit Reasons: ACUTE - FU ON A FIB/ONCOLOGY PT Chief Complaint: A FIB Epic Willow Analyst Required: No Accompanied by: Self Is patient in pain?: Yes (post port placement ) Pain scale (1-10): 6 Allergies acetaminophen Allergy (Mild, Verified 02/13/25 10:27) Itching Penicillins (PCN) Allergy (Verified 02/13/25 10:27) PT UNSURE OF REACTION Medications ???Medication ???Instructions ???Recorded ???Confirmed ???Type guaifenesin 1,200 mg tablet, 1,200 mg PO DAILY 11/22/24 5 History extended release 12 hr (Mucinex) furosemide 20 mg tablet (Lasix) 20 mg PO DAILY #30 tabs 11/26/24 0 02/13/25 Rx pantoprazole 40 mg tablet,delayed 40 mg PO DAILY #30 tabs 11/26/24 02/13/25 Rx release cholestyramine-aspartame 4 gram 4 g PO TID #239.4 grams 12/05/24 0 02/13/25 Rx oral powder (Cholestyramine Light) metoprolol succinate 25 mg 25 mg PO QDAY #90 tabs 02/06/25 Rx tablet,extended release 24 hr (Toprol XL) loperamide 2 mg capsule (Imodium 2 mg PO QDAY 02/09/25 02/13/25 His tory A-D) tramadol 50 mg tablet 50 mg PO Q6H PRN pain 2 days #5 02/13/25 Rx tabs Have you fallen in the past year?: No Nurse's Note: patient post port placement [facility] Medical History Wears glasses Cancer Anemia Easy bruising Excessive bleeding Essential tremor History of GI bleed Gastric reflux Non-smoker Shortness of breath on exertion Colitis History of edema History of stress test History of echocardiogram Cardiology follow-up encounter Encounter for education Cardiac murmur Pelvic lymphadenopathy Mesenteric lymphadenopathy Retroperitoneal lymphadenopathy Mediastinal lymphadenopathy Iron deficiency anemia due to chronic blood loss Metastasis to liver of unknown origin Ulcerative colitis Ascites Cholangiocarcinoma Atrial fibrillation HUANG (dyspnea on exertion) Nonrheumatic aortic (valve) stenosis Bicuspid aortic valve Acute kidney injury Chest pain, unspecified Asthma Churg-Geronimo syndrome Surgical History History of esophagogastroduodenoscop y (EGD) Hx of surgical procedure S/P proctocolectomy ( 1993) Hx laparoscopic cholecystectomy History of right and left heart catheterization (LHC) ( 07/12/01) History of aortic valve replacement with bioprosthetic valve Family History Other Heart disease Social History Smoking Status: Never smoker alcohol intake: current alcohol intake frequency: holidays/special occasions only details: occasional substance use type: does not use HPI HPI Chief Complaint: A FIB Details: DENY BRONSON, is a 55 M who presents to the office today to get established here as he has not had a PCP. He states that it has been a long time since he has had any Primary care. He was recently diagnosed with liver Cancer in November / early December. He is established with Oncology here in [place] and he is set to undergo treatment as soon as he can. He is currently in the process of having IV Iron infusions for Anemia. He states that he went through 5 treatments already which he did see improvement in his overall energy Prior to his diagnosis he states that he was relatively healthy. He was actually losing a lot of weight which prompted him to get evaluated. Currently he is dealing with some generalized fatigue Patient used to consume a lot of sugar in drinking a lot of Mt. Dew and sweet tea which he has been really cutting back on since his diagnosis. He states that he is drinking more water and gatorade No ETOH use. No nicotine use Caffeine via pop (again though cutting back) In 1993 Patient had a J-pouch procedure where they removed his large intestine In 2000 he had a heart valve replacement He does see eye doctor. Currently wears glasses He has long history of bowel issues including diarrhea HE has been taking the lasix as directed which he states really has helped his swelling ROS Const Constitutional: No body ache, excess (more content not included)... Normal [facility] CXR for Line Placementon CXR for Line Placement [facility] Imaging Services [address], [place] [id number] CXR for Line Placement MR#: [id number] Acct: [id number] Name: DENY BRONSON Rep #: [id number] : 1970 M 55 From: Man Jaffe PCP: JACK Mccall Status: [facility] Study: CXR for Line Placement Date of Exam: 02/11/25 Exam# [id number] Ordering Dr: Maya Live MD EXAM: AP portable upright chest CLINICAL HISTORY: Port placement. COMPARISON: Chest x-ray of 04/16/2020. TECHNIQUE: AP portable upright chest, following port placement. RAD/CXR for Line Placement IMPRESSION: The cardiomediastinal silhouette is stable, with mild cardiomegaly likely present. Interval placement of a right subclavian central venous catheter with port, with tip projecting over the SVC. No pneumothorax is seen. No significant pleural effusion is evident. Lungs are hypoinflated, and there is probably a mild degree of interstitial pulmonary edema noted, however. Reading Location: [place] [address] CC: Dr. Maya Live MD; JACK Mccall Oncology Registrar: Signed Normal [facility] Discharge Instructionon Discharge Instruction [facility] Medical Records Department [address] [place] [address] Instructions for Home/Discharge Instructions 02/11/25 1444 MR#: [id number] Acct: [id number] Name: DENY BRONSON Rep #: [id number] : 1970 55 From: Maya Live MD PCP: JACK Mccall Status:REG [facility] [place] Discharge Instructions Procedure Port-A-Cath Diet Discharge Diet: Light diet - advance as tolerated Activity May shower in (days): 5 (Keep port site clean and dry x5 days. Neck incision okay to get wet after 1 day. Okay to lower shower and upper sponge bath. OR okay to taper off port site with a Ziploc bag to shower) Lifting Restrictions: No lifting > 15 pounds for 3 days with the arm on the side of the port Dressing / Incision Call your doctor if your incision/area has: Continuous Slow Oozing, Sudden Increased Bleeding, Increased Pain/ Swelling, Increased Redness, Foul Smelling Discharge and Swelling at the incision site Call your doctor if you observe: Fever of 101 or Higher Change Dressing in: 2 days (2-3 days- port site; ok to remove neck opsite in 1 day) Follow Up Care Please Follow Up With: Maya Live MD When: In 10 days for permanent suture removal???call office for appointment Test Results: Test results from this visit will be discussed in further detail at your follow-up appointment, if applicable. Discharge Plan Admission Attending Provider: Maya Live Primary Care Provider: Johny Rodríguez Instructions Print Language: Kazakh Discharge Orders/Prescriptions Prescriptions: New tramadol 50 mg tablet 50 mg PO Q6H PRN (Reason: pain) 2 Days Qty: 5 0RF Continued Cholestyramine Light 4 gram powder 4 g PO TID Qty: 239.4 2RF Rx Instructions: administer w/meal; avoid other meds within 1hr before or 4-6hr after dose loperamide [Imodium A-D] 2 mg capsule 2 mg PO QDAY metoprolol succinate [Toprol XL] 25 mg tablet extended release 24 hr 25 mg PO QDAY Qty: 90 3RF guaifenesin [Mucinex] 1,200 mg tablet extended release 12hr 1,200 mg PO DAILY furosemide [Lasix] 20 mg tablet 20 mg PO DAILY Qty: 30 2RF pantoprazole 40 mg tablet,delayed release (DR/EC) 40 mg PO DAILY Qty: 30 2RF Referrals / Follow Up: Johny Rodríguez PA [Primary Care Provider] - Disposition Disposition (needs filled in before D/C Order can be placed): Home, Self Care 02/11/25 1446 Maya Live MD CC: JACK Mccall Signed [facility] MR/POSTOP.[facility] 02-11-2025 MR/POSTOP.[facility] Medical Records Department [address] [place] [address] Anesthesia Postop Eval I 02/11/25 141 MR#: [id number] Acct: [id number] Name: DENY BRONSON Rep #: [id number] : 1970 55 From: Himanshu Nguyen CRNA PCP: JACK Mccall Status:REG [facility] Y Race: C Location: [place] [address] Anesthesia: Postop Eval I Current Vital Signs Temperature: 98.3 F Pulse Rate: 93 Blood Pressure: 99/46 Respiratory Rate: 20 Pulse Ox: 98 Oxygen Delivery Method: Room Air Assessment Airway patent: Yes Spontaneous unlabored respirations: Yes Mental status: Awake and Calm nausea: No Vomiting: No Anesthesia Complication: No Fluid Hydration Crystalloid volume administer (ml): 700 Total IV fluid infused: 700 Progress Note Anesthesia document: Postop Eval 1 completed: Yes 02/11/25 1416 Date Himanshu Nguyen CRNA Cosigner Signature: Date CC: Signed [facility] MR/[id number] 02-11-2025 MR/POSTOPAN2 [facility] Medical Records Department [address] [place] [address] Anesthesia Postop Eval II 02/11/25 1447 MR#: [id number] Acct: [id number] Name: DENY BRONSON Rep #: [id number] : 1970 55 From: Dwayne Castillo MD PCP: JACK Mccall Status:REG SDC Y Race: C Location: [place] [address] Anesthesia Postop Eval I Sum Postop Eval Completion status Anesthesia document: Postop Eval 1 completed: Yes Anesthesia Postop Eval I Summary Anesthesia Postop Eval I Summary: Anesthesia Postop Eval I: Assessment Summary Airway patent Yes 02/11/25 14:16 VOTING MACHINE REPAIRER.[email or web address] Spontaneous unlabored Yes 02/11/25 14:16 VOTING MACHINE REPAIRER.PKEL respirations Mental status Awake,Calm 02/11/25 14:16 VOTING MACHINE REPAIRER.PKEL nausea No 02/11/25 14:16 VOTING MACHINE REPAIRER.PKEL Vomiting No 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 Postop Eval I: Fluid Summary Crystalloid volume administer 700 02/11/25 14:16 VOTING MACHINE REPAIRER.PKEL (ml) Colloids volume administered ( ml) Blood Product volume administered (ml) Total IV fluid infused 700 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 Postop Eval I: Summary Notes Anesthesia Complication No 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 Complication Comment: Post-operative progress note Anesthesia: Postop Eval II Evaluation Mental status: Awake Pain Level: 0 nausea: No Vomiting: No Complications Anesthesia Complication: No 02/11/25 144 Date Dwayne Castillo MD Cosigner Signature: Date CC: Signed [facility] Operative Reporton [address] [facility] Medical Records Department [address] [place] [address] Operative Report 02/11/25 1410 MR#: [id number] Acct: [id number] Name: DENY BRONSON Rep #: [id number] : 1970 55 From: Maya Live MD PCP: JACK Mccall Status:REG [facility] Location: [place] [address] Operative Report (Standard) Operative Information Date of Procedure: 02/11/25 Pre-Operative Diagnosis: Z45.2, cholangiocarcinoma Post-Operative Diagnosis: Same Surgery/Procedure Performed: 1. Placement of right IJ Port-A-Cath, 2. Use of ultrasound, 3. use of fluoroscopy glove boarder: No Type of Anesthesia: Local MAC RN Documented Start/Stop Times: Operation Date: 02/11/25 12:30 Case Time Into Pre-Op 02/11/25 10:37 Out of Pre-Op 02/11/25 13:18 Anesthesia Start 02/11/25 13:23 Into Room 02/11/25 13:23 Procedure Start 02/11/25 13:39 Procedure End 02/11/25 14:08 Anesthesia End 02/11/25 14:11 Out of Room 02/11/25 14:11 Into Recovery 02/11/25 14:13 Out of Recovery 02/11/25 14:31 Into Phase II Recovery 02/11/25 14:32 Procedure Start Time: 13:39 Procedure Stop Time: 14:08 Select all DRAINS/GRAFTS/IMPLANTS that apply: Implanted device Implanted device details: PowerPort 6 Fr Bard ref [id number] Lot [id number] Special Medications: Clindamycin 900 g IV x 1 Estimated Blood Loss: < 10 cc Specimen collected: No Description of surgery: After informed consent was given, the patient was brought to the operating room and placed in the supine position. Appropriate time out protocol was followed. Patient was then given IV conscious sedation for anesthesia. The patient's right upper chest and neck were then prepped with a surgical skin preparation and sterile surgical drapes were placed. After proper landmarks were ascertained, the skin at the upper right chest area was then infiltrated with 1:1 mixture of 1% lidocaine with epinephrine and 0.5% marcaine. A needle trocar was then inserted into the right internal jugular vein with ultrasound guidance- multiple vessels were viewed with u/s and the right IJ was chosen-- and there was good aspiration of venous blood. A wire was then threaded into the needle trocar and this was visualized under fluoroscopy to ensure that the wire was in the superior vena cava. Once this was done, then the needle trocar was removed. A small skin wade was made with an 11 blade knife at the wire entrance site. The dilator with the introducer sheath attached was then placed over the wire into the right internal jugular vein via the Seldinger technique and this was visualized under fluoroscopy. The dilator and sheath were in proper position as visualized by fluoroscopy. A subcutaneous pocket was then created caudad to the catheter insertion site. A transverse skin incision was made after the skin and subcutaneous tissues were infiltrated with local anesthetic. Blunt dissection was then used to create a space large enough for placement of the subcutaneous port. The catheter was then tunneled into the subcutaneous pocket. The wire and dilator were then removed. The catheter was then threaded into the introducer sheath and was positioned with its tip at the junction of the superior vena cava and the right atrium as visualized under fluoroscopy. The excess catheter was transected. The catheter was then attached to the subcutaneous port using manufacturers guidelines. The catheter was flushed with a heparin saline mixture prior to placement. Hemostasis was carefully controlled with electrocautery. The port was sutured to the subcutaneous fascia using 2-0 Vicryl suture at two sites. The port was then placed in the subcutaneous pocket. The incision were reapproximated with interrupted subdermal 3-0 vicryl sutures. The skin was reapproximated with 3-0 nylon suture in a interrupted fashion. Steristrips were used for reinforcement of the skin closure at IJ insertion site and a sterile opsite dressings were applied. The patient tolerated the procedure well. Surgical Findings: See operative report Complications Complications: No 02/11/25 1446 Cosigner Signature (if applicable): CC: Dr. 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 When Was Last Pacemaker Check QUESTION #4 FULL TEXT: You/Your Family Experience fever (hyperthermia) with Anesthesia Last Oral Intake Last Oral intake: Last Oral Intake NPO since Meds taken in AM with sips of water? 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 Female No 02/10/25 08:35 HX of Motion Sickness No 02/10/25 08:35 HX of N/V After Surgery Yes 02/10/25 08:35 Non-Smoker Yes 02/10/25 08:35 Duration of Surgery greater No 02/10/25 08:35 than 60 minutes Number of Risk Factors 2 02/10/25 08:35 PONV Score Moderate Risk 02/10/25 08:35 Height Weight Height Weight: Anesthesia: Height Weight Height 6 ft 3 in 02/09/25 14:29 Respiratory Assessment Respiratory Assessment - supervisor meter [employer]: Respiratory Tract Infection Hx - 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 Has anyone observed you stop No 02/10/25 08:35 breathing during sleep? STOP Results Negative 02/10/25 08:35 QUESTION #5 FULL TEXT : Do you snore loudly (louder than talking or can be heard through closed doors)? 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 Specify any problems Hx of Preganancy in last 3 N/A 02/10/25 08:35 Months Nurse Filling Out Transfusion VCHRISTIN 02/10/25 08:35 Questions: Date: 02/10/25 02/10/25 08:35 Time: 08:36 02/10/25 08:35 Patient unable to answer at this time (ie. confused, unrespo /Reproduction History /Reproductive History - supervisor meter [employer]: /Reproductive Hx- supervisor meter [employer] Hx Now Gestational Age (in weeks): EDC: Hx Hx Para Hx Section SAB PFSH Medical History (Updated 02/10/25 @ 08:34 by Rufina Santos) Wears glasses Cancer Anemia Easy bruising Excessive bleeding Essential tremor History of GI bleed Gastric reflux Non-smoker Shortness of breath on exertion Colitis History of edema History of stress test History of echocardiogram Cardiology follow-up encounter Encounter for education Cardiac murmur Pelvic lymphadenopathy Mesenteric lymphadenopathy Retroperitoneal lymphadenopathy Mediastinal lymphadenopathy Iron deficiency anemia due to chronic blood loss Metastasis to liver of unknown origin Ulcerative colitis Ascites Cholangiocarcinoma Atrial fibrillation HUANG (dyspnea on exertion) Nonrheumatic aortic (valve) stenosis Bicuspid aortic valve Acute kidney injury Chest pain, unspecified Asthma Churg-Geronimo syndrome Home Medications ???Medication ???Instructions ???Recorded ???Last Taken ???Type guaifenesin 1,200 mg tablet, 1 (more content not included)... [facility] Surgery Visit Reporton 02-09 Surgery Visit Report [facility] [address] [place] [address] OFFICE VISIT Date of Service: 02/09/25 MR#: [id number] Acct: [id number] Name: DENY BRONSON Rep #: [id number] : 1970 Provider: Dr. Maya hensley MD Age/Sex: 55/M Location: [facility] Status: Signed Intake Vital Signs 02/03/25 09:22 02/09/25 11:57 02/09/25 14:29 Height 6 ft 3 in 6 ft 3 in 6 ft 3 in Weight: 209 lb 6 oz BMI 26.2 BP 96/48 L Blood Pressure Location Rt brachial Position Sitting Respiration 17 Pulse 77 Pulse Source Monitor Pulse Oximetry (%) 98 Oxygen Delivery Method room air Intake Visit Reasons: PORT PLACEMENT Chief Complaint: port placement Is patient in pain?: Yes Allergies acetaminophen Allergy (Mild, Verified 02/10/25 08:20) Itching Penicillins (PCN) Allergy (Verified 02/10/25 08:20) PT UNSURE OF REACTION Medications ???Medication ???Instructions ???Recorded ???Confirmed ???Type guaifenesin 1,200 mg tablet, 1,200 mg PO DAILY 11/22/24 5 History extended release 12 hr (Mucinex) furosemide 20 mg tablet (Lasix) 20 mg PO DAILY #30 tabs 11/26/24 0 02/10/25 Rx pantoprazole 40 mg tablet,delayed 40 mg PO DAILY #30 tabs 11/26/24 02/10/25 Rx release cholestyramine-aspartame 4 gram 4 g PO TID #239.4 grams 12/05/24 0 02/10/25 Rx oral powder (Cholestyramine Light) metoprolol succinate 25 mg 25 mg PO QDAY #90 tabs 02/06/25 Rx tablet,extended release 24 hr (Toprol XL) loperamide 2 mg capsule (Imodium 2 mg PO QDAY 02/09/25 02/10/25 His tory A-D) [facility] Medical History (Updated 02/10/25 @ 08:34 by Rufina Santos) Wears glasses Cancer Anemia Easy bruising Excessive bleeding Essential tremor History of GI bleed Gastric reflux Non-smoker Shortness of breath on exertion Colitis History of edema History of stress test History of echocardiogram Cardiology follow-up encounter Encounter for education Cardiac murmur Pelvic lymphadenopathy Mesenteric lymphadenopathy Retroperitoneal lymphadenopathy Mediastinal lymphadenopathy Iron deficiency anemia due to chronic blood loss Metastasis to liver of unknown origin Ulcerative colitis Ascites Cholangiocarcinoma Atrial fibrillation HUANG (dyspnea on exertion) Nonrheumatic aortic (valve) stenosis Bicuspid aortic valve Acute kidney injury Chest pain, unspecified Asthma Churg-Geronimo syndrome Surgical History (Updated 02/10/25 @ 08:34 by Rufina Santos) History of esophagogastroduodenoscop y (EGD) Hx of surgical procedure S/P proctocolectomy ( 1993) Hx laparoscopic cholecystectomy History of right and left heart catheterization (LHC) ( 07/12/01) History of aortic valve replacement with bioprosthetic valve Family History Other Heart disease Social History Smoking Status: Never smoker alcohol intake: current alcohol intake frequency: holidays/special occasions only details: occasional substance use type: does not use HPI HPI HPI: 55-year-old male presents for port placement for treatment for cholangiocarcinoma. Patient is planned to start February 18. Patient's past medical history includes total proctocolectomy to [place] for ulcerative colitis in 94 with a J-pouch at [facility], in November 2024 he was found to have melanotic stools with hemoglobin of 5.7. ROS General General: Yes weight change and fatigue; No appetite, colon cancer or breast cancer HEENT HEENT: No difficulty swallowing, eye injury, eye surgery, swollen glands or hoarseness Endo Endocrine: No thyroid disease, diabetes mellitus, thyroid cancer, Hair loss, heat intolerance or cold intolerance Skin Skin: Yes rash; No changing moles Musc Musculoskeletal: No back problems, arthritis, rheumatoid arthritis, gout or joint pain Cardio Cardiovascular: Yes murmur; No pacemaker, heart disease, atrial fibrillation, high blood pressure, heart attack, heart stent, palpitations, shortness of breath with exertion or chest pain Psych Psychiatric: No depression, anxiety or hearing voices Resp Respiratory: Yes shortness of breath, No sleep apnea, No cough, No COPD, No asthma, No emphysema and No wheezing Gastro Gastrointestinal: No abdominal pain, No nausea or vomiting, Yes diarrhea, No constipation, Yes blood in stool, No acid reflux, No hemorrhoids, No ulcers, No gallbladder problem and Yes black,tarry stools Marques Hematologic: No blood thinners, No blood disorders, No bleeding, No anemia and No blood clots Neuro Neurologic: Yes numbness and Yes tingling Exam Const General: cooperative, healthy appearing, comfortable and no acute distress HENCT Head: normocephalic and atr (more content not included)... [facility] 12 Lead EKG performed by [facility] on 02-06-2025 12 Lead EKG performed by [place] [id number] [place] [address] 12 Lead EKG performed by [facility] 02/06/25 0807 MR#: [id number] Acct: [id number] Name: DENY BRONSON Rep #: [id number] : 1970 55 From: Mark Morales MD Attending Dr: Dr. Mark Morales MD Status: DEP A MB Ordering Dr: Mark Morales MD Date: 02/06/25 Location: [facility] Sex: M C Admitted: BMS/12 Lead EKG performed by [facility] ECG Report Interpretation -Atrial fibrillation -Right bundle branch block with left axis -bifascicular block. ABNORMAL Electronically signed on 02/09/2025 at 17:38 by Mark Morales [employer] Version [id number] 02/09/25 1741 Date Mark Morales MD CC: Dr. Jose Ramachandran, DO Date Dictated: 02/06/25806 Date Transcribed: 02/06/25806 Oncology Registrar: [place] Signed [facility] Cardiology Visit Reporton Cardiology Visit Report [facility] [address] [place] [address] OFFICE VISIT Date of Service: 02/06/25 MR#: [id number] Acct: [id number] Name: DENY BRONSON Rep #: [id number] : 1970 Provider: Dr. Mark Morales MD Age/Sex: 55/M Location: [facility] Status: Signed HPI HPI History of Present Illness Details: Pleasant 55-year-old man with a history of bicuspid aortic valve who underwent a bovine pericardial heart valve replacement with a 27 mm size in September 2001. As you know he does have a history of Crohn's disease severe anemia and more recently diagnosed atrial fibrillation as well as metastatic cancer in the liver with unknown primary. He had previously undergone a total proctocolectomy in 1993 with a J-pouch at the [facility] and his pathology has previously demonstrated active colitis as well as recurrent bleeding with black melanotic stools. 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 He denies any chest pain or shortness of breath or paroxysmal nocturnal dyspnea or pedal edema he does have some shortness of breath with exertion though. He has been on his medication which is tolerated. More recently he was diagnosed with atrial fibrillation in November and his EKG today demonstrates atrial fibrillation with a rate of 93 bpm a right bundle branch block and a left anterior fascicular block. Intake Vital Signs 02/03/25 09:22 02/05/25 09:58 02/06/25 08:07 Height 6 ft 3 in 6 ft 3 in 6 ft 3 in Weight: 206 lb 8 oz 207 lb BMI 25.8 25.9 BP 89/56 L 108/73 Blood Pressure Location Lt brachial Lt brachial Position Sitting Sitting Respiration 18 18 Pulse 92 83 Pulse Source Monitor Monitor Temp 98.2 F Temperature Source Temporal Artery Pulse Oximetry (%) 100 Oxygen Delivery Method room air Intake Visit Reasons: AFIB(ISCKRARUS) Epic Willow Analyst Required: No Accompanied by: Self Is patient in pain?: No Allergies acetaminophen Allergy (Mild, Verified 02/06/25 08:21) Itching Penicillins (PCN) Allergy (Verified 02/06/25 08:21) PT UNSURE OF REACTION Medications ???Medication ???Instructions ???Recorded ???Confirmed ???Type guaifenesin 1,200 mg tablet, 1,200 mg PO DAILY 11/22/24 5 History extended release 12 hr (Mucinex) furosemide 20 mg tablet (Lasix) 20 mg PO DAILY #30 tabs 11/26/24 0 02/06/25 Rx pantoprazole 40 mg tablet,delayed 40 mg PO DAILY #30 tabs 11/26/24 02/06/25 Rx release cholestyramine-aspartame 4 gram 4 g PO TID #239.4 grams 12/05/24 0 02/06/25 Rx oral powder (Cholestyramine Light) metoprolol succinate 25 mg 25 mg PO QDAY #90 tabs 02/06/25 Rx tablet,extended release 24 hr (Toprol XL) Have you fallen in the past year?: Yes [facility] Medical History Encounter for education Cardiac murmur Ascites Atrial fibrillation HUANG (dyspnea on exertion) Pelvic lymphadenopathy Mesenteric lymphadenopathy Retroperitoneal lymphadenopathy Mediastinal lymphadenopathy Iron deficiency anemia due to chronic blood loss Metastasis to liver of unknown origin Cholangiocarcinoma Ulcerative colitis Nonrheumatic aortic (valve) stenosis Bicuspid aortic valve Acute kidney injury Chest pain, unspecified Asthma Churg-Geronimo syndrome Surgical History S/P proctocolectomy ( 1993) Hx laparoscopic cholecystectomy History of right and left heart catheterization (LHC) ( 07/12/01) History of aortic valve replacement with bioprosthetic valve Family History Other Heart disease Social History Smoking Status: Light Smoker (<10/day) (rare cigar use, 2 to 3 times a month) alcohol intake: current alcohol intake frequency: holidays/special occasions only details: occasional substance use type: does not use ROS Const Const: Positive for fatigue and weakness; Negative for headache(s), daytime sleepiness or difficulty sleeping ENT ENT: Negative for headache(s), dizziness or Nosebleed/epistaxis Cardio Chest Pain: No Palpitations: Yes Edema: Bilateral (BLE 1+ at times ) Resp Respiratory: Positive for SOB with activity and SOB at rest (with talking ); Negative for SOB orthopnea SOB lying down or Cough GI GI: Positive for heartburn; Negative nausea or vomiting Neuro Neuro: Positive for lightheadedness, near syncope and weakness; Negative for dizziness or headache(s) Endo Endo: Positive for fatigue Cardiology Exam Const Appearance: cooperative, healthy appe (more content not included)... [facility] Oncology Visit Reporton Oncology Visit Report [facility] [address] [place] [address] OFFICE VISIT Date of Service: 02/05/25 0956 MR#: [id number] Acct: [id number] Name: DENY BRONSON Shai Rep #: [id number] : 1970 From: Geeta Rodgers NP [employer]ATHER SORTER -C Age/Sex: 55/M Location: [facility] Status: Signed HPI Subjective Date of Service 02/05/25 Chief Complaint Metastatic cancer to liver History of Present Illness 55-year-old male past medical history notable for ulcerative colitis status post total proctocolectomy in 1993 with a J-pouch at [facility] and pathology reported extensive chronic and active colitis and low-grade epithelial dysplasia.. He was hospitalized in November 2024 after he reported bleeding and black melanotic stools was found with a hemoglobin of 5.7 g per DL. November 22, 2024 CTA: IMPRESSION: 1. No acute pulmonary embolism within the proximal pulmonary arteries. 2. Severe cardiomegaly. Dilation of the main pulmonary trunk, which can be seen with pulmonary artery hypertension. 3. 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 November 22, 2024 CT abdomen and pelvis: IMPRESSION: 1. Prior colectomy and ileo-anal pouch creation, with intramural gas and wall thickening of the distal ileum, most compatible with pneumatosis and necrosis of the anastomosis. 2. Ill-defined area of wall irregularity along the right lateral bowel with adjacent ascites, incompletely evaluated without the use of oral contrast. However findings are most concerning for bowel perforation. Correlation with prior abdominal imaging and clinical examination recommended. 3. Left hepatic lobe ill-defined hypodensities, most compatible with cholangiocarcinoma, however additional differential diagnoses include infection and autoimmune diseases. Correlation with prior abdominal imaging recommended. If none available, CT or MRI abdomen (liver protocol) may be obtained for further evaluation. 4. Diffuse retroperitoneal, periportal, mesenteric and pelvic lymphadenopathy, which may be secondary to patient's known history of granulomatosis with polyangiitis. Correlation with prior imaging recommended as neoplasm can not be excluded. November 24, 2024 MRCP: IMPRESSION: 1. Heterogeneous mass in the left hepatic lobe with severe left intrahepatic biliary dilatation suggestive of cholangiocarcinoma. Recommend MRI of the liver with contrast and delayed imaging for further evaluation. 2. Hepatomegaly 3. Cardiomegaly. November 24, 2024 EGD: Impression: - Normal esophagus. - Gastroparesis. - Gastric stenosis was found at the pylorus. - Duodenitis. Biopsied. November 24, 2024 lower GI endoscopy: Findings: The perianal and digital rectal examinations were normal. Multiple 5 mm subepithelial nodules were found in the rectum with bleeding stigmata. Biopsies were taken with a cold forceps for histology. November 24, 2024 pathology: MICROSCOPIC DIAGNOSIS A. Duodenum, biopsy: Fragments of duodenal mucosa with mild Ernst???s gland hyperplasia. B. Colon anastomosis, biopsy: Fragments of colonic mucosa with extensive ulceration, acute and chronic inflammation, granulation tissue reaction and reactive epithelial changes November 25, 2024 Liver mass, CT guided core biopsy: Well differentiated glands with intestinal differentiation, consistent with well-differentiated adenocarcinoma. Liver tissue is not present. The specimen is sent to [facility] for expert opinion, reviewed by Dr. Harding and the above diagnosis is rendered. The complete report is viewable in the patient's EMR. Dr. 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 Immunostains positive for CK20, CDX2, SATB2, CK17, CK19 and MUC2, negative for CK7, Arginase-1, PAX8, and MUC5AC support intestinal differentiation. Next generation sequence colorectal panel was negative and IDH 1/IDH 2 mutation negative. December 17, 2023 PET/CT: IMPRESSION: 1. Multiple left hepatic metastatic foci. 2. Edema is seen within the mesenteric fat, nonspecific in nature, possibly representing inflammation tumor. This area demonstrates clear metabolic activity, however. 3. Left inguinal hernia, apparently containing both fat and small bowel. 4. Right greater trochanteric bursitis. 5. Cardiomegaly. 6. Multiple mediastinal and hilar lymph nodes are seen, but without significant hypermetabolic activity noted. January 20, 2025 EGD and pouchoscopy with biopsies: No primary identified. Interval History The patient is presenting to clinic accompanied by friend, Raquel for an education visit to discuss palliative chemotherapy with FOLFOX. [facility] Medical History (Updated 02/05/25 @ 10:09 by Geeta Rodgers NP (more content not included)... Normal [facility] Absolute lymphocyte countOrd ered By: [facility] Diana on 02-03-2025 Lymphocytes Auto (Unsp spec) [#/Vol] 1.01 10*3/uL 0.83-4.51 [facility] Absolute neutrophil countOrd ered By: [facility] Diana on 02-03-2025 Neutrophils (Bld) [#/Vol] 6.6 10*3/uL 2.0-7.7 [facility] Anion gap in Serum or Plasma Or[facility]: [facility] 02-03-2025 Anion gap [Moles/Vol] 9 mmol/L 5-15 [facility] Automated lymphocyte count a s percentage of total leukocytesOrdered By: [facility] Diana on 02-03-2025 Lymphocytes/100 WBC Auto (Unsp spec) 11.0 % Low 19-41 [facility] BUN/creatinine ratioOrdered By: [facility] Diana on 02-03-2025 Urea nitrogen/Creatinine [Mass ratio] 30.0 mg/mg High 10-20 [facility] Basophil percentageOrdered B y: Trish Ortiz on 02-03-2025 Basophils/100 WBC (Bld) 1.0 % 0-[address] [facility] Bilirubin, totalOrdered By: [facility] on 02-03-2025 Bilirubin [Mass/Vol] 1.44 mg/dL High 0.00-1.30 [facility] CBC W/Diff, Automatedon 04- Absolute Lymph 1.01 X10 3/uL Normal 0.83-4.51 [facility] Comment on above: Performed By: #### L 100.0100, L501.2300, L500.4050, L503.6550, L501.5200, L503.6030 ####[facility] [address] [place], [address] Absolute Neut 6.6 X10 3/uL Normal 2.0-7.7 [facility] Comment on above: Performed By: #### L 100.0100, L501.2300, L500.4050, L503.6550, L501.5200, L503.6030 ####[facility] [address] [place], [address] Basophils/100 WBC (Bld) 1.0 % Normal 0-[address] [facility] Comment on above: Performed By: #### L 100.0100, L501.2300, L500.4050, L503.6550, L501.5200, L503.6030 ####[facility] [address] [place], [address] Eosinophils/100 WBC (Bld) 4.4 % Normal 0-5 [facility] Comment on above: Performed By: #### L 100.0100, L501.2300, L500.4050, L503.6550, L501.5200, L503.6030 ####[facility] [address] [place], [address] Erythrocyte distribution width (RBC) [Ratio] 20.0 % High 11.6-14.6 [facility] Comment on above: Performed By: #### L 100.0100, L501.2300, L500.4050, L503.6550, L501.5200, L503.6030 ####[facility] [address] [place], [address] Hematocrit (Bld) [Volume fraction] 29.0 % Low 40-54 [facility] Comment on above: Performed By: #### L 100.0100, L501.2300, L500.4050, L503.6550, L501.5200, L503.6030 ####[facility] [address] [place], [address] Hemoglobin (Bld) [Mass/Vol] 8.3 g/dL Low 13.0-16.5 [facility] Comment on above: Performed By: #### L 100.0100, L501.2300, L500.4050, L503.6550, L501.5200, L503.6030 ####[facility] [address] [place], [address] IG% 0.400 Normal 0.0-0.9 [facility] Comment on above: Result Comment: IG% - Immature Granulocytes (promyelocytes, myelocytes and metamyelocytes) > 1% indicates that a LEFT SHIFT is Present. Performed By: #### L 100.0100, L501.2300, L500.4050, L503.6550, L501.5200, L503.6030 ####[facility] [address] [place], [address] Lymphocytes/100 WBC (Bld) 11.0 % Low 19-41 [facility] Comment on above: Performed By: #### L 100.0100, L501.2300, L500.4050, L503.6550, L501.5200, L503.6030 ####[facility] [address] [place], [address] MCH (RBC) [Entitic mass] 21.5 pg Low 27.0-32.0 [facility] Comment on above: Performed By: #### L 100.0100, L501.2300, L500.4050, L503.6550, L501.5200, L503.6030 ####[facility] [address] [place], [address] MCHC (RBC) [Mass/Vol] 28.6 g/dL Low 32-36 [facility] Comment on above: Performed By: #### L 100.0100, L501.2300, L500.4050, L503.6550, L501.5200, L503.6030 ####[facility] [address] [place], [address] MCV (RBC) [Entitic vol] 75.1 fL Low 80-[address] [facility] Comment on above: Performed By: #### L 100.0100, L501.2300, L500.4050, L503.6550, L501.5200, L503.6030 ####[facility] [address] [place], [address] Monocytes/100 WBC (Bld) 11.3 % High 0-10 [facility] Comment on above: Performed By: #### L 100.0100, L501.2300, L500.4050, L503.6550, L501.5200, L503.6030 ####[facility] [address] [place], [address] Neutrophils/100 WBC (Bld) 71.9 % High 47-70 [facility] Comment on above: Performed By: #### L 100.0100, L501.2300, L500.4050, L503.6550, L501.5200, L503.6030 ####[facility] [address] [place], [address] Nucleated RBC (Bld) [#/Vol] 0 10*3/uL Normal 0-5 [facility] Comment on above: Performed By: #### L 100.0100, L501.2300, L500.4050, L503.6550, L501.5200, L503.6030 ####[facility] [address] [place], [address] Platelet mean volume (Bld) [Entitic vol] 8.8 fL Normal 6.2-12.0 [facility] Comment on above: Performed By: #### L 100.0100, L501.2300, L500.4050, L503.6550, L501.5200, L503.6030 ####[facility] [address] [place], [address] Platelets (Bld) [#/Vol] 351 10*3/uL Normal 150-450 [facility] Comment on above: Performed By: #### L 100.0100, L501.2300, L500.4050, L503.6550, L501.5200, L503.6030 ####[facility] [address] [place], [address] RBC (Bld) [#/Vol] 3.86 10*6/uL Low 4.6-6.2 [facility] Comment on above: Performed By: #### L 100.0100, L501.2300, L500.4050, L503.6550, L501.5200, L503.6030 ####[facility] [address] [place], [address] RDW SD 54.7 fl High 35.1-43.9 [facility] Comment on above: Performed By: #### L 100.0100, L501.2300, L500.4050, L503.6550, L501.5200, L503.6030 ####[facility] [address] [place], [address] WBC (Bld) [#/Vol] 9.2 10*3/uL Normal 4.4-11.0 [facility] Comment on above: Performed By: #### L 100.0100, L501.2300, L500.4050, L503.6550, L501.5200, L503.6030 ####[facility] [address] [place], [address] Carbon dioxide, total [Moles /volume] in Central venous bloodOrdered By: Trish Ortiz on 02-03-2025 CO2 [Moles/Vol] 18.7 mmol/L Low 21.0-32.0 [facility] Chloride assayOrdered By: Trent Ortiz on 02-03-2025 Chloride [Moles/Vol] 107 mmol/L 98-108 [facility] Comprehensive Metabolic Prof ilon 02-03-2025 Albumin [Mass/Vol] 3.2 g/dL Low 3.5-5.0 [facility] Comment on above: Performed By: #### L 100.0100, L501.2300, L500.4050, L503.6550, L501.5200, L503.6030 ####[facility] [address] [place], [address] Albumin/Globulin [Mass ratio] 0.7 {ratio} Low 0.9-2.4 [facility] Comment on above: Performed By: #### L 100.0100, L501.2300, L500.4050, L503.6550, L501.5200, L503.6030 ####[facility] [address] [place], [address] ALK PHOS 663 U/L High 40-129 [facility] Comment on above: Performed By: #### L 100.0100, L501.2300, L500.4050, L503.6550, L501.5200, L503.6030 ####[facility] [address] [place], [address] ALT [Catalytic activity/Vol] 69 U/L High <=46 [facility] Comment on above: Performed By: #### L 100.0100, L501.2300, L500.4050, L503.6550, L501.5200, L503.6030 ####[facility] [address] [place], [address] AST [Catalytic activity/Vol] 76 U/L High <=37 [facility] Comment on above: Performed By: #### L 100.0100, L501.2300, L500.4050, L503.6550, L501.5200, L503.6030 ####[facility] [address] [place], [address] Bilirubin [Mass/Vol] 1.44 mg/dL High 0.00-1.30 [facility] Comment on above: Performed By: #### L 100.0100, L501.2300, L500.4050, L503.6550, L501.5200, L503.6030 ####[facility] [address] [place], [address] BUN/CRE 30.0 RATIO High 10-20 [facility] Comment on above: Performed By: #### L 100.0100, L501.2300, L500.4050, L503.6550, L501.5200, L503.6030 ####[facility] [address] [place], [address] Calcium [Mass/Vol] 8.3 mg/dL Normal 7.6-11.0 [facility] Comment on above: Performed By: #### L 100.0100, L501.2300, L500.4050, L503.6550, L501.5200, L503.6030 ####[facility] [address] [place], [address] Chloride [Moles/Vol] 107 mmol/L Normal 98-108 [facility] Comment on above: Performed By: #### L 100.0100, L501.2300, L500.4050, L503.6550, L501.5200, L503.6030 ####[facility] [address] [place], [address] CO2 [Moles/Vol] 18.7 mmol/L Low 21.0-32.0 [facility] Comment on above: Performed By: #### L 100.0100, L501.2300, L500.4050, L503.6550, L501.5200, L503.6030 ####[facility] [address] [place], [address] Creatinine [Mass/Vol] 0.82 mg/dL Normal 0.70-1.20 [facility] Comment on above: Performed By: #### L 100.0100, L501.2300, L500.4050, L503.6550, L501.5200, L503.6030 ####[facility] [address] [place], [address] ECRCL 121.65 ml/min Normal 50-250 [facility] Comment on above: Performed By: #### L 100.0100, L501.2300, L500.4050, L503.6550, L501.5200, L503.6030 ####[facility] [address] [place], [address] GAP 9 Normal 5-15 [facility] Comment on above: Performed By: #### L 100.0100, L501.2300, L500.4050, L503.6550, L501.5200, L503.6030 ####[facility] [address] [place], [address] GFR/1.73 sq M.predicted among non-blacks MDRD (S/P/Bld) [Vol rate/Area] 104 mL/min/{1.73_m2} Normal >60 [facility] Comment on above: Result Comment: mL/m in/1.73m2 CKD-EPI Creatinine Equation (2020) Performed By: #### L 100.0100, L501.2300, L500.4050, L503.6550, L501.5200, L503.6030 ####[facility] [address] [place], [address] Globulin (S) [Mass/Vol] 4.7 g/dL High 2.2-4.2 [facility] Comment on above: Performed By: #### L 100.0100, L501.2300, L500.4050, L503.6550, L501.5200, L503.6030 ####[facility] [address] [place], [address] Glucose [Mass/Vol] 93 mg/dL Normal 70-99 [facility] Comment on above: Performed By: #### L 100.0100, L501.2300, L500.4050, L503.6550, L501.5200, L503.6030 ####[facility] [address] [place], [address] Potassium [Moles/Vol] 4.2 mmol/L Normal 3.3-5.1 [facility] Comment on above: Performed By: #### L 100.0100, L501.2300, L500.4050, L503.6550, L501.5200, L503.6030 ####[facility] [address] [place], [address] Sodium [Moles/Vol] 134 mmol/L Normal 133-145 [facility] Comment on above: Performed By: #### L 100.0100, L501.2300, L500.4050, L503.6550, L501.5200, L503.6030 ####[facility] [address] [place], [address] T PROT 7.9 g/dL Normal 5.9-8.4 [facility] Comment on above: Performed By: #### L 100.0100, L501.2300, L500.4050, L503.6550, L501.5200, L503.6030 ####[facility] [address] [place], [place], [address] Urea nitrogen [Mass/Vol] 25 mg/dL High 4-19 [facility] Comment on above: Performed By: #### L 100.0100, L501.2300, L500.4050, L503.6550, L501.5200, L503.6030 ####[facility] [address] [place], [place], [address] Eosinophil percentageOrdered By: Trish Ortiz on 02-03-2025 Eosinophils/100 WBC (Bld) 4.4 % 0-5 [facility] Erythrocyte distribution wid th ratioOrdered By: [facility] on 02-03-2025 Erythrocyte distribution width (RBC) [Ratio] 20.0 % High 11.6-14.6 [facility] Erythrocyte distribution wid th standard deviationOrdered By: [facility] Diana on 02-03-2025 Erythrocyte distribution width (RBC) [Ratio] 54.7 fl High 35.1-43.9 [facility] Ferritinon 02-03-2025 Ferritin [Mass/Vol] 14 ng/mL Low 37-417 [facility] Comment on above: Performed By: #### L 100.0100, L501.2300, L500.4050, L503.6550, L501.5200, L503.6030 ####[facility] [address] [place], [place], [address] Glomerular filtration rate ( GFR) estimation/1.73 sq m using serum, plasma, or whole bOrdered By: Trish Ortiz on 02-03-2025 GFR/1.73 sq M.predicted among non-blacks MDRD (S/P/Bld) [Vol rate/Area] 104 mL/min/{1.73_m2} >60 [facility] Comment on above: mL/min/1.73m2 CKD-EP I Creatinine Equation (2020) Hematocrit Auto (Bld) [Volum e fraction]Ordered By: Trish Ortiz on 02-03-2025 Hematocrit (Bld) [Volume fraction] 29.0 % Low 40-54 [facility] Hemoglobin measurementOrdere d By: Trish Ortiz on 02-03-2025 Hemoglobin (Bld) [Mass/Vol] 8.3 g/dL Low 13.0-16.5 [facility] Immature granulocytes/100 WB C Auto (Bld)Ordered By: Malacaro Ortiz on 02-03-2025 Immature granulocytes/100 WBC (Bld) 0.400 % 0.0-0.9 [facility] Comment on above: IG% - Immature Granu locytes (promyelocytes, myelocytes and metamyelocytes) > 1% indicates that a LEFT SHIFT is Present. Iron measurement (mass/mass) Ordered By: Trish Ortiz on 02-03-2025 Iron (Unsp spec) [Mass/Mass] 14 ug/dL Low 65-175 [facility] Iron+Iron Binding Capacityon 02-03-2025 Iron [Mass/Vol] 14 ug/dL Low 65-175 [facility] Comment on above: Performed By: #### L 100.0100, L501.2300, L500.4050, L503.6550, L501.5200, L503.6030 ####[facility] [address] [place], [address] IRON SATURATION 4.0 Low 9-55 [facility] Comment on above: Performed By: #### L 100.0100, L501.2300, L500.4050, L503.6550, L501.5200, L503.6030 ####[facility] [address] [place], [address] TIBC 400 ug/dL Normal 250-450 [facility] Comment on above: Performed By: #### L 100.0100, L501.2300, L500.4050, L503.6550, L501.5200, L503.6030 ####[facility] [address] [place], [place], [id number] UIBC 386 ug/dL Normal 228-428 [facility] Comment on above: Performed By: #### L 100.0100, L501.2300, L500.4050, L503.6550, L501.5200, L503.6030 ####[facility] [address] [place], [place], [id number] Laboratory - Chemistry and C hemistry - challengeOrdered By: Trish Ortiz on 02-03-2025 AST [Catalytic activity/Vol] 76 U/L High <38 [facility] MCV (mean corpuscular volume ) determinationOrdered By: Trish Ortiz on 02-03-2025 MCV (RBC) [Entitic vol] 75.1 fL Low 80-[address] [facility] Magnesiumon 02-03-2025 Magnesium [Mass/Vol] 1.4 mg/dL Low 1.5-2.2 [facility] Comment on above: Performed By: #### L 100.0100, L501.2300, L500.4050, L503.6550, L501.5200, L503.6030 ####[facility] [address] [place], [place], [address] Magnesium measurement (mass/ volume)Ordered By: Trish Ortiz on 02-03-2025 Magnesium (Unsp spec) [Mass/Vol] 1.4 mg/dL Low 1.5-2.2 [facility] Mean corpuscular hemoglobin (MCH) determinationOrdered By: Trish Ortiz on 02-03-2025 MCH (RBC) [Entitic mass] 21.5 pg Low 27.0-32.0 [facility] Mean corpuscular hemoglobin concentration (MCHC) determinationOrdered By: Trish Ortiz on 02-03-2025 MCHC (RBC) [Mass/Vol] 28.6 g/dL Low 32-36 [facility] Mean platelet volume determi nationOrdered By: Trish Ortiz on 02-03-2025 Platelet mean volume (Bld) [Entitic vol] 8.8 fL 6.2-12.0 [facility] Monocyte percentageOrdered B y: Trish Ortiz on 02-03-2025 Monocytes/100 WBC (Bld) 11.3 % High 0-[address] [facility] Neutrophil percentageOrdered By: Trish Ortiz on 02-03-2025 Neutrophils/100 WBC (Bld) 71.9 % High 47-70 [facility] No Panel InformationOrdered By: Trish Ortiz on 02-03-2025 Unsaturated Iron Binding Capacity 386 ug/dL 228-428 [facility] Nucleated red blood cell per centageOrdered By: [facility] on 02-03-2025 Nucleated RBC/100 WBC (Bld) [Ratio] 0 % 0-5 [facility] Oncology Visit Reporton 01-07 Oncology Visit Report [facility] [address] [address] OFFICE VISIT Date of Service: 02/03/2518 MR#: [id number] Acct: [id number] Name: DENY BRONSON Rep #: [id number] : 1970 From: Trish Ortiz MD Age/Sex: 55/M Location: [facility] [place] Status: Signed HPI Subjective Date of Service 02/03/25 Chief Complaint Metastatic cancer to liver History of Present Illness 54-year-old male past medical history notable for ulcerative colitis status post total proctocolectomy in 1993 with a J-pouch at [facility] and pathology reported extensive chronic and active colitis and low-grade epithelial dysplasia.. He was hospitalized in November 2024 after he reported bleeding and black melanotic stools was found with a hemoglobin of 5.7 g per DL. November 22, 2024 CTA: IMPRESSION: 1. No acute pulmonary embolism within the proximal pulmonary arteries. 2. Severe cardiomegaly. Dilation of the main pulmonary trunk, which can be seen with pulmonary artery hypertension. 3. 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 November 22, 2024 CT abdomen and pelvis: IMPRESSION: 1. Prior colectomy and ileo-anal pouch creation, with intramural gas and wall thickening of the distal ileum, most compatible with pneumatosis and necrosis of the anastomosis. 2. Ill-defined area of wall irregularity along the right lateral bowel with adjacent ascites, incompletely evaluated without the use of oral contrast. However findings are most concerning for bowel perforation. Correlation with prior abdominal imaging and clinical examination recommended. 3. Left hepatic lobe ill-defined hypodensities, most compatible with cholangiocarcinoma, however additional differential diagnoses include infection and autoimmune diseases. Correlation with prior abdominal imaging recommended. If none available, CT or MRI abdomen (liver protocol) may be obtained for further evaluation. 4. Diffuse retroperitoneal, periportal, mesenteric and pelvic lymphadenopathy, which may be secondary to patient's known history of granulomatosis with polyangiitis. Correlation with prior imaging recommended as neoplasm can not be excluded. November 24, 2024 MRCP: IMPRESSION: 1. Heterogeneous mass in the left hepatic lobe with severe left intrahepatic biliary dilatation suggestive of cholangiocarcinoma. Recommend MRI of the liver with contrast and delayed imaging for further evaluation. 2. Hepatomegaly 3. Cardiomegaly. November 24, 2024 EGD: Impression: - Normal esophagus. - Gastroparesis. - Gastric stenosis was found at the pylorus. - Duodenitis. Biopsied. November 24, 2024 lower GI endoscopy: Findings: The perianal and digital rectal examinations were normal. Multiple 5 mm subepithelial nodules were found in the rectum with bleeding stigmata. Biopsies were taken with a cold forceps for histology. November 24, 2024 pathology: MICROSCOPIC DIAGNOSIS A. Duodenum, biopsy: Fragments of duodenal mucosa with mild Ernst???s gland hyperplasia. B. Colon anastomosis, biopsy: Fragments of colonic mucosa with extensive ulceration, acute and chronic inflammation, granulation tissue reaction and reactive epithelial changes November 25, 2024 Liver mass, CT guided core biopsy: Well differentiated glands with intestinal differentiation, consistent with well-differentiated adenocarcinoma. Liver tissue is not present. The specimen is sent to [facility] for expert opinion, reviewed by Dr. Harding and the above diagnosis is rendered. The complete report is viewable in the patient's EMR. Dr. 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 Immunostains positive for CK20, CDX2, SATB2, CK17, CK19 and MUC2, negative for CK7, Arginase-1, PAX8, and MUC5AC support intestinal differentiation. Next generation sequence colorectal panel was negative and IDH 1/IDH 2 mutation negative. December 17, 2023 PET/CT: IMPRESSION: 1. Multiple left hepatic metastatic foci. 2. Edema is seen within the mesenteric fat, nonspecific in nature, possibly representing inflammation tumor. This area demonstrates clear metabolic activity, however. 3. Left inguinal hernia, apparently containing both fat and small bowel. 4. Right greater trochanteric bursitis. 5. Cardiomegaly. 6. Multiple mediastinal and hilar lymph nodes are seen, but without significant hypermetabolic activity noted. January 20, 2025 EGD and pouchoscopy with biopsies: No primary identified. [facility] Medical History (Updated 02/03/25 @ 09:[address] Trish Ortiz MD) Pelvic lymphadenopathy Mesenteric lymphadenopathy Retroperitoneal lymphadenopathy Mediastinal lymphadenopathy Iron deficiency anemia due to ch (more content not included)... Normal [facility] Phosphoruson 02-03-2025 Phosphate [Mass/Vol] 3.2 mg/dL Normal 2.7-4.5 [facility] Comment on above: Performed By: #### L 100.0100, L501.2300, L500.4050, L503.6550, L501.5200, L503.6030 ####[facility] [id number] [place], [address] Platelet countOrdered By: Trent Ortiz on 02-03-2025 Platelets (Bld) [#/Vol] 351 10*3/uL 150-450 [facility] Potassium measurement (mass/ volume)Ordered By: Trish Ortiz on 02-03-2025 Potassium (Unsp spec) [Mass/Vol] 4.2 mmol/L 3.3-5.1 [facility] RBC Auto (Bld) [#/Vol]Ordere d By: Trish Ortiz on 02-03-2025 RBC (Bld) [#/Vol] 3.86 10*6/uL Low 4.6-6.2 [facility] Serum creatinine measurement (mass/volume)Ordered By: Trish Ortiz on 02-03-2025 Creatinine [Mass/Vol] 0.82 mg/dL 0.70-1.20 [facility] Serum globulin measurementOr dered By: Trish Ortiz on 02-03-2025 Globulin (S) [Mass/Vol] 4.7 g/dL High 2.2-4.2 [facility] Serum glucose measurement (m ass/volume)Ordered By: Trish Ortiz on 02-03-2025 Glucose [Mass/Vol] 93 mg/dL 70-99 [facility] Serum or plasma alanine arroyo otransferase (ALT) measurementOrdered By: Trish Ortiz on 02-03-2025 ALT [Catalytic activity/Vol] 69 U/L High <47 [facility] Serum or plasma albumin bernard urement (mass/volume)Ordered By: Trish Ortiz on 02-03-2025 Albumin [Mass/Vol] 3.2 g/dL Low 3.5-5.0 [facility] Serum or plasma albumin/glob ulin mass ratioOrdered By: Trish Ortiz on 02-03-2025 Albumin/Globulin [Mass ratio] 0.7 {ratio} Low 0.9-2.4 [facility] Serum or plasma alkaline rubio sphatase measurementOrdered By: Trish Ortiz on 02-03-2025 ALP [Catalytic activity/Vol] 663 U/L High 40-129 [facility] Serum or plasma calcium bernard urement (mass/volume)Ordered By: Trish Ortiz on 02-03-2025 Calcium [Mass/Vol] 8.3 mg/dL 7.6-11.0 [facility] Serum or plasma ferritin filippo surement (mass/volume)Ordered By: Trish Ortiz on 02-03-2025 Ferritin [Mass/Vol] 14 ng/mL Low 37-417 [facility] Serum or plasma iron saturat ion measurement (mass fraction)Ordered By: Trish Ortiz on 02-03-2025 Iron saturation [Mass fraction] 4.0 % Low 9-55 [facility] Serum or plasma urea nitroge n measurement (mass/volume)Ordered By: Trish Ortiz on 02-03-2025 Urea nitrogen [Mass/Vol] 25 mg/dL High 4-19 [facility] Sodium levelOrdered By: Mala Ortiz on 02-03-2025 Sodium [Moles/Vol] 134 mmol/L 133-145 [facility] Total proteinOrdered By: Luciano Ortiz on 02-03-2025 Protein [Mass/Vol] 7.9 g/dL 5.9-8.4 [facility] White blood cell (WBC) count Ordered By: Trish Ortiz on 02-03-2025 WBC (Bld) [#/Vol] 9.2 10*3/uL 4.4-11.0 [facility] BASIC METABOLIC PANELon - Anion gap [Moles/Vol] 11 mmol/L 7 - 17 mmol/L [facility] Calcium [Mass/Vol] 8.6 mg/dL 8.6 - 10. 5 mg/dL [facility] Chloride [Moles/Vol] 103 mmol/L 98 - 10 8 mmol/L [facility] CO2 [Moles/Vol] 22 mmol/L 21 - 31 mmol/L [facility] Creatinine [Mass/Vol] 0.59 mg/dL Low 0.70 - 1.30 mg/dL [facility] eGFR, CKD-EPI, Male - PINF [facility] Comment on above: Reported eGFR is bas ed on the CKD-EPI 2020 equation using creatinine, age, and sex. Glucose [Mass/Vol] 79 mg/dL 70 - 179 mg/dL [facility] Osmolality Calc [Osmolality] 276 Low [facility] Potassium [Moles/Vol] 3.8 mmol/L 3.5 - 5.0 mmol/L [facility] Sodium [Moles/Vol] 132 mmol/L Low 135 - 145 mmol/L [facility] Urea nitrogen [Mass/Vol] 13 mg/dL 7 - 25 mg/dL [facility] Urea nitrogen/Creatinine [Mass ratio] 22 mg/mg [facility] Anion gap [Moles/Vol] 11 mmol/L Normal 7-[address] [facility] Comment on above: Performed By: #### M JOEL MARTINEZ, C7C #### [facility] (DEFAULT) [address] [place] [address] Calcium [Mass/Vol] 8.6 mg/dL Normal 8.6-10.5 [facility] Comment on above: Performed By: #### M JUAN IPB, C7C #### [facility] (DEFAULT) [address] [place] [address] Chloride [Moles/Vol] 103 mmol/L Normal 98-108 [facility] Comment on above: Performed By: #### JOEL CAGLE C7C #### [facility] (DEFAULT) [address] [place] [address] CO2 [Moles/Vol] 22 mmol/L Normal 21-31 [facility] Comment on above: Performed By: #### JOEL CAGLE C7C #### [facility] (DEFAULT) [address] [place] [address] Creatinine [Mass/Vol] 0.59 mg/dL Low 0.70-1.[address] [facility] Comment on above: Performed By: #### JOEL CAGLE C7C #### [facility] (DEFAULT) [address] [place] [address] eGFR, CKD-EPI, Male > Normal >=60 [facility] Comment on above: Result Comment: Repo rted eGFR is based on the CKD-EPI 2020 equation using creatinine, age, and sex. Performed By: #### JOEL CAGLE C7C #### [facility] (DEFAULT) [address] [place] [address] Glucose [Mass/Vol] 79 mg/dL Normal Nonfastin g : 70-179 mg/dL; Fastin-99 [facility] Comment on above: Performed By: #### JOEL CAGLE C7C #### [facility] (DEFAULT) [address] [place] [address] Osmolality [Osmolality] 276 mosm/kg Low 278-305 [facility] Comment on above: Performed By: #### JOEL CAGLE C7C #### [facility] (DEFAULT) [address] [place] [address] Potassium [Moles/Vol] 3.8 mmol/L Normal 3.5-5.[address] [facility] Comment on above: Performed By: #### JOEL CAGLE, C7C #### [facility] (DEFAULT) [address] [place] [address] Sodium [Moles/Vol] 132 mmol/L Low 135-145 [facility] Comment on above: Performed By: #### JOEL CAGLE C7C #### [facility] (DEFAULT) [address] [place] [address] Urea nitrogen [Mass/Vol] 13 mg/dL Normal 7-25 [facility] Comment on above: Performed By: #### OJEL CAGLE C7C #### [facility] (DEFAULT) [address] [place] [address] Urea nitrogen/Creatinine [Mass ratio] 22 mg/mg Normal [facility] Comment on above: Performed By: #### JOEL CAGLE C7C #### [facility] (DEFAULT) [address] [place] [address] CBC,PLATELETSon 01-20-2025 Erythrocyte distribution width (RBC) [Ratio] 21.4 % High 10.9 - 14.3 % [facility] Hematocrit (Bld) [Volume fraction] 30.5 % Low 39.6 - 48.8 % [facility] Hemoglobin (Bld) [Mass/Vol] 8.7 g/dL Low 13.4 - 16.8 g/dL [facility] Interpretation and review of laboratory results Abnormal [facility] MCH (RBC) [Entitic mass] 21.3 pg Low 26. 1 - 33.3 pg [facility] MCHC (RBC) [Mass/Vol] 28.5 g/dL Low 31.9 - 36.5 g/dL [facility] MCV (RBC) [Entitic vol] 74.6 fL Low 79.0 - 94.5 fL [facility] Platelet mean volume (Bld) [Entitic vol] 9.5 fL 8.7 - 12.3 fL [facility] Platelets (Bld) [#/Vol] 373 10*3/uL High 146 - 337 K/uL [facility] RBC (Bld) [#/Vol] 4.09 10*6/uL Low [facility] WBC (Bld) [#/Vol] 9.49 10*3/uL 3.73 - 10.10 K/uL [facility] Hematocrit (Bld) [Volume fraction] 30.5 % Low 39.6-48.8 [facility] Comment on above: Performed By: #### H EMOGC #### [facility] (DEFAULT) [address] [address] Hemoglobin (Bld) [Mass/Vol] 8.7 g/dL Low 13.4-16.8 [facility] Comment on above: Performed By: #### H EMOGC #### [facility] (DEFAULT) [address] [address] MCV (RBC) [Entitic vol] 74.6 fL Low 79.0-94.5 O [facility] Comment on above: Performed By: #### H EMOGC #### [facility] (DEFAULT) [address] [address] Mean Cell Hgb 21.3 pg Low 26.1-33.3 [facility] Comment on above: Performed By: #### H EMOGC #### [facility] (DEFAULT) [address] [address] Mean Cell Hgb Conc 28.5 g/dL Low 31.9-36.5 [facility] Comment on above: Performed By: #### H EMOGC #### [facility] (DEFAULT) [address] [address] Platelet mean volume (Bld) [Entitic vol] 9.5 fL Normal 8.7-12.3 [facility] Comment on above: Performed By: #### H EMOGC #### [facility] (DEFAULT) [address] [address] Platelets (Bld) [#/Vol] 373 10*3/uL High 146-337 [facility] Comment on above: Performed By: #### H EMO #### [facility] (DEFAULT) [address] [place] [address] RBC (Bld) [#/Vol] 4.09 10*6/uL Low 4.38-5.83 [facility] Comment on above: Performed By: #### H EMOGC #### [facility] (DEFAULT) [address] [place] [address] RBC Distribution 21.4 % High 10.9-14.3 [facility] Comment on above: Performed By: #### H EMOGC #### [facility] (DEFAULT) [address] [place] [address] WBC (Bld) [#/Vol] 9.49 10*3/uL Normal 3.73-10.10 [facility] Comment on above: Performed By: #### H EMO #### [facility] (DEFAULT) [address] [place] [address] CONTINUOUS CARDIAC MONITORIN G STRIPOrdered By: Unassigned Pacs on 01-20-2025 [facility] Work Phone: MAGNESIUMon 01-20-2025 Magnesium [Mass/Vol] 1.5 mg/dL Low 1.6 - 2 .6 mg/dL [facility] Magnesium [Mass/Vol] 1.5 mg/dL Low 1.6-2.6 [facility] Comment on above: Performed By: #### M GO, IPB, C7C #### [facility] (DEFAULT) [address] [place] [address] No Panel Informationon 01-20 Interpretation and review of laboratory results Abnormal [facility] PHOSPHATE, INORGANICon 01-20 Interpretation and review of laboratory results Normal [facility] Phosphate [Mass/Vol] 3.9 mg/dL 2.2 - 4 .6 mg/dL [facility] Phosphorous 3.9 mg/dL Normal 2.2-4.6 [facility] Comment on above: Performed By: #### M JUAN, IPB, C7C #### [facility] (DEFAULT) [address] [place] [address] SURG PATH REQUESTon 01-21-20 25 Addendum [facility] Comment on above: Result Comment: This addendum is issued to report on the H. pylrori stain was performed on specimen A No Helicobacter pylori organisms identified on HP immunohistochemical stain. Addendum electronically signed by Devante Whipple MD on 02/12/2025 at 1448 EDT Performed By: #### S URGP #### [facility] (DEFAULT) [address] [place] [address] Case Report [facility] Comment on above: Result Comment: Surg ical Pathology Report Case: [id number] Authorizing Provider: Lazaro Perry MD Collected: 01/20/2025 04:10 PM Ordering Location: [facility]OP Received: 01/20/2025 05:09 PM Pathologist: Devante Whipple MD Specimens: A) - SURG PATH, Antral biopsy B) - SURG PATH, Polyp in ileoanal pouch C) - SURG PATH, Rectal cuff polyps Performed By: #### S URGP #### [facility] (DEFAULT) [address] [place] [address] Clinical History Preop Diagnosis: Ot er ulcerative colitis with complication. Medical History: Heart block. [facility] Comment on above: Performed By: #### S URGP #### [facility] (DEFAULT) [address] [place] [address] Gross Description [facility] Comment on above: Result Comment: The specimens are received in three properly labeled containers with the patient's name and accession number. A. The specimen is designated antral biopsy and consists of two fragments of jesus-pink soft tissue, up to 0.7 cm in greatest dimension. TE 1 B. The specimen is designated polyp in ileal anal pouch and consists of two fragments of jesus-pink soft tissue, up to 0.4 cm in greatest dimension. TE 1 C. The specimen is designated rectal cuff polyps and consists of five fragments of jesus-pink soft tissue, from 0.3 up to 0.5 cm in greatest dimension. TE 1 Lab Use Only: JobID [id number] Grosser for this case was: Amelie Escalante Performed By: #### S URGP #### [facility] (DEFAULT) [address] [address] Microscopic Description A microscopic ex amination was performed. [facility] Comment on above: Performed By: #### S URGP #### [facility] (DEFAULT) [address] [address] Pathologic Diagnosis [facility] Comment on above: Result Comment: A. S tomach, antrum, biopsy: Reactive gastropathic changes in background of chronic gastritis. Pending H pylori immunostain, addendum will follow. B. Ileal anal pouch, polyp, biopsy: Benign inflammatory polyp, consistent with colitis associated pseudopolyp No evidence of dysplasia or malignancy. C. Rectal cuff, polyps, biopsy: Benign inflammatory polyp, consistent with colitis associated pseudopolyp No evidence of dysplasia or malignancy. at 1920 EDT Performed By: #### S URGP #### [facility] (DEFAULT) [address] [address] Professional Interpretation Performed at: [facility] Comment on above: Result Comment: [facility] For Immediate Release to Patient's [facility]? Yes [address] [place] [address] Performed By: #### S URGP #### [facility] (DEFAULT) [address] [place] [address] Oncology Visit Reporton 12-07 Oncology Visit Report [facility] [address] [place] [address] OFFICE VISIT Date of Service: 12/29/24 1027 MR#: [id number] Acct: [id number] Name: DENY BRONSON Rep #: [id number] : 1970 From: Trish Ortiz MD Age/Sex: 54/M Location: [facility] Status: Signed HPI Subjective Date of Service 12/29/24 Chief Complaint Metastatic cancer to liver History of Present Illness 54-year-old male past medical history notable for ulcerative colitis status post total proctocolectomy in 1993 with a J-pouch at [facility] and to his knowledge there was no cancer at that time. He was hospitalized in November 2024 after he reported bleeding and black melanotic stools was found with a hemoglobin of 5.7 g per DL. November 22, 2024 CTA: IMPRESSION: 1. No acute pulmonary embolism within the proximal pulmonary arteries. 2. Severe cardiomegaly. Dilation of the main pulmonary trunk, which can be seen with pulmonary artery hypertension. 3. 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 November 22, 2024 CT abdomen and pelvis: IMPRESSION: 1. Prior colectomy and ileo-anal pouch creation, with intramural gas and wall thickening of the distal ileum, most compatible with pneumatosis and necrosis of the anastomosis. 2. Ill-defined area of wall irregularity along the right lateral bowel with adjacent ascites, incompletely evaluated without the use of oral contrast. However findings are most concerning for bowel perforation. Correlation with prior abdominal imaging and clinical examination recommended. 3. Left hepatic lobe ill-defined hypodensities, most compatible with cholangiocarcinoma, however additional differential diagnoses include infection and autoimmune diseases. Correlation with prior abdominal imaging recommended. If none available, CT or MRI abdomen (liver protocol) may be obtained for further evaluation. 4. Diffuse retroperitoneal, periportal, mesenteric and pelvic lymphadenopathy, which may be secondary to patient's known history of granulomatosis with polyangiitis. Correlation with prior imaging recommended as neoplasm can not be excluded. November 24, 2024 MRCP: IMPRESSION: 1. Heterogeneous mass in the left hepatic lobe with severe left intrahepatic biliary dilatation suggestive of cholangiocarcinoma. Recommend MRI of the liver with contrast and delayed imaging for further evaluation. 2. Hepatomegaly 3. Cardiomegaly. November 24, 2024 EGD: Impression: - Normal esophagus. - Gastroparesis. - Gastric stenosis was found at the pylorus. - Duodenitis. Biopsied. November 24, 2024 lower GI endoscopy: Findings: The perianal and digital rectal examinations were normal. Multiple 5 mm subepithelial nodules were found in the rectum with bleeding stigmata. Biopsies were taken with a cold forceps for histology. November 24, 2024 pathology: MICROSCOPIC DIAGNOSIS A. Duodenum, biopsy: Fragments of duodenal mucosa with mild Ernst???s gland hyperplasia. B. Colon anastomosis, biopsy: Fragments of colonic mucosa with extensive ulceration, acute and chronic inflammation, granulation tissue reaction and reactive epithelial changes November 25, 2024 Liver mass, CT guided core biopsy: Well differentiated glands with intestinal differentiation, consistent with well-differentiated adenocarcinoma. Liver tissue is not present. The specimen is sent to [facility] for expert opinion, reviewed by Dr. Harding and the above diagnosis is rendered. The complete report is viewable in the patient's EMR. Dr. 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 Immunostains positive for CK20, CDX2, SATB2, CK17, CK19 and MUC2, negative for CK7, Arginase-1, PAX8, and MUC5AC support intestinal differentiation. Next generation sequence colorectal panel was negative and IDH 1/IDH 2 mutation negative. December 17, 2023 PET/CT: IMPRESSION: 1. Multiple left hepatic metastatic foci. 2. Edema is seen within the mesenteric fat, nonspecific in nature, possibly representing inflammation tumor. This area demonstrates clear metabolic activity, however. 3. Left inguinal hernia, apparently containing both fat and small bowel. 4. Right greater trochanteric bursitis. 5. Cardiomegaly. 6. Multiple mediastinal and hilar lymph nodes are seen, but without significant hypermetabolic activity noted. [facility] Medical History Iron deficiency anemia due to chronic blood loss Metastasis to liver of unknown origin Cholangiocarcinoma Ulcerative colitis Nonrheumatic aortic (valve) stenosis Bicuspid aortic valve Heat exhaustion Hypokalemia Acute kidney injury Chest pain, unspecified UTI (more content not included)... Normal [facility] PET/CT Tumor Base -Thigh Ini ton 12-16-2024 PET/CT Tumor Base -Thigh Init [facility] Imaging Services [address] [place] [id number] PET/CT Tumor Base -Thigh Init MR#: [id number] Acct: [id number] Name: DENY BRONSON Rep #: [id number] : 1970 M 54 From: Man Jaffe PCP: Dr. Jose Ramachandran, DO Status: REG RCR Study: PET/CT Tumor Base -Thigh Init Date of Exam: Exam# [id number] Ordering Dr: Trish Ortiz MD EXAM: PET/CT TUMOR BASE -THIGH INIT CLINICAL HISTORY: METS ADENO CA TO LIVER COMPARISON: None. TECHNIQUE: F-18 FDG PET-CT, from the skull base to the mid thigh. Dose: 13.19 mCi F-18 FDG intravenous. FINDINGS: A small amount of free fluid is seen within the abdomen, most apparent adjacent to the liver within the pelvis. Edema is seen within the mesenteric fat, nonspecific in nature, possibly representing inflammation tumor. This area demonstrates clear metabolic activity, however. Neck: No area of abnormal hypermetabolic activity is seen. Chest: Multiple mediastinal and hilar lymph nodes are seen, but without significant hypermetabolic activity. Abdomen and pelvis: Multiple hypermetabolic left hepatic foci are seen, the largest with SUV max of 4.5, and another intense (posterior) area with SUV max of 4.5. No definite area of right hepatic hypermetabolic activity is seen. No other focus of hypermetabolic activity is seen within the abdomen and pelvis. Bones: Additional: Cardiomegaly. Aortic valve graft in place. Aukib-lrjtavc-wbwb-left varicose veins are seen of the visualized portions of the thighs. A left inguinal hernia is seen, containing both fat likely small bowel At the right greater trochanteric bursa, hypermetabolic activity is seen, consistent with trochanteric bursitis. PET/PET/CT Tumor Base -Thigh Init IMPRESSION: 1. Multiple left hepatic metastatic foci. 2. Edema is seen within the mesenteric fat, nonspecific in nature, possibly representing inflammation tumor. This area demonstrates clear metabolic activity, however. 3. Left inguinal hernia, apparently containing both fat and small bowel. 4. Right greater trochanteric bursitis. 5. Cardiomegaly. 6. Multiple mediastinal and hilar lymph nodes are seen, but without significant hypermetabolic activity noted. Reading Location: [address] CC: Dr. Trish Ortiz MD; Dr. Jose Ramachandran DO Oncology Registrar: Signed [facility] SURG PATH REQUESTon 12-13-19 Case Report [facility] Comment on above: Result Comment: Surg ical Pathology Report Case: [id number] Authorizing Provider: KATHERINE Henry Collected: 12/12/2024 12:22 PM Ordering Location: [facility] Received: 12/12/2024 12:23 PM [place] Pathologist: Regis Keith MD, PhD Specimen: SURG PATH, Outside Block; Colon Cancer Mutation Panel (COLMOL) (NGS, FFPE); IDH1, IDH2 Mutations (Blood, BM, FFPE); Liver Mass, CT-Guided Core Biopsy Performed By: #### S URGP #### [facility] (DEFAULT) [address] [place] [address] Clinical History Request received KATHERINE Campos for Colon Cancer Mutation Panel and IDH1, IDH2 Mutations (Blood, BM, FFPE) testing on the paraffin block received. Pre-Op Diagnosis: Liver mass. [facility] Comment on above: Performed By: #### S URGP #### [facility] (DEFAULT) [address] [place] [address] Gross Description [facility] Comment on above: Result Comment: The following material(s) are received from [facility], [address] [place] [address], with an identifying surgical pathology report: One (1) paraffin block marked #1, labeled [id number]. The paraffin block that was received is submitted to the [facility] histology/IHC laboratory for recutting and additional staining: Colon Mutation Panel, IDH1, IDH2 Mutations testing. Material with be returned upon completion of review. Grosser for this case was: Yolande Magallon Performed By: #### S URGP #### [facility] (DEFAULT) [address] [place] [address] Microscopic Description [facility] Comment on above: Result Comment: Tiss ue was assessed by a molecular pathologist to select areas for analysis and to correlate immunostaining with histology. No morphologic assessment was requested. Performed By: #### S URGP #### [facility] (DEFAULT) [address] [place] [address] [address] [address] [facility] Comment on above: Result Comment: Outs guille block: [id number] (11/25/2024) 1. Liver Mass, CT-Guided Core Biopsy: Colorectal cancer NGS panel: Negative IDH1/IDH2 mutation panel: Negative at 1521 EDT Performed By: #### S URGP #### [facility] (DEFAULT) [address] [place] [address] Professional Interpretation Performed at: [facility] Comment on above: Result Comment: [facility] For Immediate Release [facility] Yes [address] [facility] [address] [place], [place] [address] Performed By: #### S URGP #### [facility] (DEFAULT) [address] [place] [address] CBC W/Diff, Automatedon Anisocytosis Ql (Bld) 1+ Normal [facility] Comment on above: Performed By: #### L 500.3400, L501.4020, L100.0100, M100.7900, L500.2500, L501.2450, L503.6005 #### [facility] [address] [place], [address] HYPOCHROMASIA 2+ Normal [facility] Comment on above: Performed By: #### L 500.3400, L501.4020, L100.0100, M100.7900, L500.2500, L501.2450, L503.6005 #### [facility] [address] [place], [address] Comprehensive Metabolic Prof ilon 12-10-2024 Albumin [Mass/Vol] 3.1 g/dL Low 3.5-5.0 [facility] Comment on above: Performed By: #### L 500.3400, L501.4020, L100.0100, M100.7900, L500.2500, L501.2450, L503.6005 #### [facility] [address] [place], [address] Albumin/Globulin [Mass ratio] 0.6 {ratio} Low 0.9-2.4 [facility] Comment on above: Performed By: #### L 500.3400, L501.4020, L100.0100, M100.7900, L500.2500, L501.2450, L503.6005 #### [facility] [address] [place], [address] ALK PHOS 627 U/L High 40-129 [facility] Comment on above: Performed By: #### L 500.3400, L501.4020, L100.0100, M100.7900, L500.2500, L501.2450, L503.6005 #### [facility] [address] [place], [address] ALT [Catalytic activity/Vol] 36 U/L Normal <=46 [facility] Comment on above: Performed By: #### L 500.3400, L501.4020, L100.0100, M100.7900, L500.2500, L501.2450, L503.6005 #### [facility] [address] [place], [address] AST [Catalytic activity/Vol] 55 U/L High <=37 [facility] Comment on above: Performed By: #### L 500.3400, L501.4020, L100.0100, M100.7900, L500.2500, L501.2450, L503.6005 #### [facility] [address] [place], [address] Bilirubin [Mass/Vol] 1.15 mg/dL Normal 0.00-1.30 [facility] Comment on above: Performed By: #### L 500.3400, L501.4020, L100.0100, M100.7900, L500.2500, L501.2450, L503.6005 #### [facility] [address] [place], [address] BUN/CRE 26.5 RATIO High 10-20 [facility] Comment on above: Performed By: #### L 500.3400, L501.4020, L100.0100, M100.7900, L500.2500, L501.2450, L503.6005 #### [facility] [address] [place], [address] Calcium [Mass/Vol] 8.1 mg/dL Normal 7.6-11.0 [facility] Comment on above: Performed By: #### L 500.3400, L501.4020, L100.0100, M100.7900, L500.2500, L501.2450, L503.6005 #### [facility] [address] [place], [address] Chloride [Moles/Vol] 103 mmol/L Normal 98-108 [facility] Comment on above: Performed By: #### L 500.3400, L501.4020, L100.0100, M100.7900, L500.2500, L501.2450, L503.6005 #### [facility] [address] [place], [address] CO2 [Moles/Vol] 20.1 mmol/L Low 21.0-32.0 [facility] Comment on above: Performed By: #### L 500.3400, L501.4020, L100.0100, M100.7900, L500.2500, L501.2450, L503.6005 #### [facility] [address] [place], [address] Creatinine [Mass/Vol] 0.82 mg/dL Normal 0.70-1.20 [facility] Comment on above: Performed By: #### L 500.3400, L501.4020, L100.0100, M100.7900, L500.2500, L501.2450, L503.6005 #### [facility] [address] [place], [address] GAP 8 Normal 5-15 [facility] Comment on above: Performed By: #### L 500.3400, L501.4020, L100.0100, M100.7900, L500.2500, L501.2450, L503.6005 #### [facility] [address] [place], [address] GFR/1.73 sq M.predicted among non-blacks MDRD (S/P/Bld) [Vol rate/Area] 105 mL/min/{1.73_m2} Normal >60 [facility] Comment on above: Result Comment: mL/m in/1.73m2 CKD-EPI Creatinine Equation (2020) Performed By: #### L 500.3400, L501.4020, L100.0100, M100.7900, L500.2500, L501.2450, L503.6005 #### [facility] [address] [place], [address] Globulin (S) [Mass/Vol] 4.9 g/dL High 2.2-4.2 [facility] Comment on above: Performed By: #### L 500.3400, L501.4020, L100.0100, M100.7900, L500.2500, L501.2450, L503.6005 #### [facility] [address] [place], [address] Glucose [Mass/Vol] 102 mg/dL High 70-99 [facility] Comment on above: Performed By: #### L 500.3400, L501.4020, L100.0100, M100.7900, L500.2500, L501.2450, L503.6005 #### [facility] [address] [place], [address] Potassium [Moles/Vol] 4.2 mmol/L Normal 3.3-5.1 [facility] Comment on above: Performed By: #### L 500.3400, L501.4020, L100.0100, M100.7900, L500.2500, L501.2450, L503.6005 #### [facility] [address] [place], [address] Sodium [Moles/Vol] 131 mmol/L Low 133-145 [facility] Comment on above: Performed By: #### L 500.3400, L501.4020, L100.0100, M100.7900, L500.2500, L501.2450, L503.6005 #### [facility] [address] [place], [address] T PROT 7.9 g/dL Normal 5.9-8.4 [facility] Comment on above: Performed By: #### L 500.3400, L501.4020, L100.0100, M100.7900, L500.2500, L501.2450, L503.6005 #### [facility] [address] [place], [address] Urea nitrogen [Mass/Vol] 22 mg/dL High 4-19 [facility] Comment on above: Performed By: #### L 500.3400, L501.4020, L100.0100, M100.7900, L500.2500, L501.2450, L503.6005 #### [facility] [address] [place], [address] Ferritinon 12-10-2024 Ferritin [Mass/Vol] 14 ng/mL Low 37-417 [facility] Comment on above: Performed By: #### L 500.3400, L501.4020, L100.0100, M100.7900, L500.2500, L501.2450, L503.6005 #### [facility] [address] [place], [address] Hypochromatic red blood cell detectionOrdered By: Trish Ortiz on 12-10-2024 Hypochromia Ql (Bld) 2+ [facility] Iron+Iron Binding Capacityon 12-10-2024 Iron [Mass/Vol] 14 ug/dL Low 65-175 [facility] Comment on above: Performed By: #### L 500.3400, L501.4020, L100.0100, M100.7900, L500.2500, L501.2450, L503.6005 #### [facility] [address] [place], [address] IRON SATURATION 4.0 Low 15.0-55.0 [facility] Comment on above: Performed By: #### L 500.3400, L501.4020, L100.0100, M100.7900, L500.2500, L501.2450, L503.6005 #### [facility] [address] [place], [address] TIBC 352 ug/dL Normal 250-450 [facility] Comment on above: Performed By: #### L 500.3400, L501.4020, L100.0100, M100.7900, L500.2500, L501.2450, L503.6005 #### [facility] [address] [place], [address] UIBC 338 ug/dL Normal 228-428 [facility] Comment on above: Performed By: #### L 500.3400, L501.4020, L100.0100, M100.7900, L500.2500, L501.2450, L503.6005 #### [facility] [address] [place], [address] L503.0106on 12-10-2024 Cobalamin (Vitamin B12) [Mass/Vol] 751 pg/mL Normal 180-914 [facility] Comment on above: Performed By: #### L 500.3400, L501.4020, L100.0100, M100.7900, L500.2500, L501.2450, L503.6005 #### [facility] [address] [place], [address] Laboratory - Hematology and Cell countsOrdered By: Trish Ortiz on 12-10-2024 Anisocytosis Ql (Bld) 1+ [facility] Oncology Visit Reporton Oncology Visit Report [facility] [address] [place] [address] OFFICE VISIT Date of Service: 12/10/24 1013 MR#: [id number] Acct: [id number] Name: DENY BRONSON Rep #: [id number] : 1970 From: Trish Ortiz MD Age/Sex: 54/M Location: [facility] [place] Status: Signed HPI Subjective Date of Service 12/10/24 Chief Complaint Metastatic cancer to liver History of Present Illness 54-year-old male past medical history notable for ulcerative colitis status post total proctocolectomy in 1993 (+/-) with a J-pouch at [facility] (records requested) was hospitalized in November 2024 after he reported bleeding and black melanotic stools was found with a hemoglobin of 5.7 g per DL. November 22, 2024 CTA: IMPRESSION: 1. No acute pulmonary embolism within the proximal pulmonary arteries. 2. Severe cardiomegaly. Dilation of the main pulmonary trunk, which can be seen with pulmonary artery hypertension. 3. 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 November 22, 2024 CT abdomen and pelvis: IMPRESSION: 1. Prior colectomy and ileo-anal pouch creation, with intramural gas and wall thickening of the distal ileum, most compatible with pneumatosis and necrosis of the anastomosis. 2. Ill-defined area of wall irregularity along the right lateral bowel with adjacent ascites, incompletely evaluated without the use of oral contrast. However findings are most concerning for bowel perforation. Correlation with prior abdominal imaging and clinical examination recommended. 3. Left hepatic lobe ill-defined hypodensities, most compatible with cholangiocarcinoma, however additional differential diagnoses include infection and autoimmune diseases. Correlation with prior abdominal imaging recommended. If none available, CT or MRI abdomen (liver protocol) may be obtained for further evaluation. 4. Diffuse retroperitoneal, periportal, mesenteric and pelvic lymphadenopathy, which may be secondary to patient's known history of granulomatosis with polyangiitis. Correlation with prior imaging recommended as neoplasm can not be excluded. November 24, 2024 MRCP: IMPRESSION: 1. Heterogeneous mass in the left hepatic lobe with severe left intrahepatic biliary dilatation suggestive of cholangiocarcinoma. Recommend MRI of the liver with contrast and delayed imaging for further evaluation. 2. Hepatomegaly 3. Cardiomegaly. November 24, 2024 EGD: Impression: - Normal esophagus. - Gastroparesis. - Gastric stenosis was found at the pylorus. - Duodenitis. Biopsied. November 24, 2024 lower GI endoscopy: Findings: The perianal and digital rectal examinations were normal. Multiple 5 mm subepithelial nodules were found in the rectum with bleeding stigmata. Biopsies were taken with a cold forceps for histology. November 24, 2024 pathology: MICROSCOPIC DIAGNOSIS A. Duodenum, biopsy: Fragments of duodenal mucosa with mild Ernst???s gland hyperplasia. B. Colon anastomosis, biopsy: Fragments of colonic mucosa with extensive ulceration, acute and chronic inflammation, granulation tissue reaction and reactive epithelial changes November 25, 2024 Liver mass, CT guided core biopsy: Well differentiated glands with intestinal differentiation, consistent with well-differentiated adenocarcinoma. Liver tissue is not present. The specimen is sent to [facility] for expert opinion, reviewed by Dr. Harding and the above diagnosis is rendered. The complete report is viewable in the patient's EMR. Dr. 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 Immunostains positive for CK20, CDX2, SATB2, CK17, CK19 and MUC2, negative for CK7, Arginase-1, PAX8, and MUC5AC support intestinal differentiation. [facility] Medical History (Updated 12/10/24 @ 11:[address] Trish Ortiz MD) Metastasis to liver of unknown origin Cholangiocarcinoma Ulcerative colitis Nonrheumatic aortic (valve) stenosis Bicuspid aortic valve Heat exhaustion Hypokalemia Acute kidney injury Chest pain, unspecified UTI (urinary tract infection) Asthma Churg-Geronimo syndrome Surgical History (Updated 12/10/24 @ 10:25 by Gisella Garcia) Hx laparoscopic cholecystectomy History of colectomy History of right and left heart catheterization (LHC) ( 07/12/01) History of aortic valve replacement with bioprosthetic valve Family History Other Heart disease Social History (Updated 12/10/24 @ 10:23 by Gisella Garcia) Smoking Status: Light Smoker (<10/day) (rare cigar use, 2 to 3 times a month) alcohol intake: current alcohol intake frequency: holidays/special occasions only details: occasional substance us (more content not included)... Normal [facility] Vitamin B12 ser/plasOrdered By: Trish Ortiz on 12-10-2024 Cobalamin (Vitamin B12) [Mass/Vol] 751 pg/mL 180-914 [facility] Gastroenterology Visit Repor ton 12-05-2024 Gastroenterology Visit Report [facility] [address] [place] [address] OFFICE VISIT Date of Service: 12/05/24 MR#: [id number] Acct: [id number] Name: DENY BRONSON Rep #: [id number] : 1970 Provider: MARIA LUISA castillo Age/Sex: 54/M Location[place] [facility] [place] Status: Signed Intake Vital Signs 11/26/24 10:37 Height 6 ft 3 in Intake Visit Reasons: Anemia Chief Complaint: diarrhea, blood in stool Allergies acetaminophen Allergy (Mild, Verified 11/24/24 13:37) Itching Penicillins (PCN) Allergy (Verified 11/24/24 13:37) PT UNSURE OF REACTION Have you fallen in the past year?: No Nurse's Note: OV 12.05.24 Pt here to establish care with [facility]. Pt reports bloody diarrhea, abdominal pain. Occasional trouble swallowing drinks. J pouch and prior hx of colonoscopy 1993. Gallbladder removed 2013. Continues pantoprazole daily. [facility] Medical History (Updated 12/05/24 @ 10:22 by MARIA LUISA Handy) Liver mass Cholangiocarcinoma Ulcerative colitis Nonrheumatic aortic (valve) stenosis Bicuspid aortic valve Heat exhaustion Hypokalemia Acute kidney injury Chest pain, unspecified UTI (urinary tract infection) Asthma Churg-Geronimo syndrome Surgical History Hx laparoscopic cholecystectomy History of colectomy History of right and left heart catheterization (LHC) ( 07/12/01) History of aortic valve replacement with bioprosthetic valve Family History Other Heart disease Social History Smoking Status: Never smoker alcohol intake: current details: occasional substance use type: does not use HPI HPI Chief Complaint: diarrhea, blood in stool Details: DENY BRONSON, is a 54 M who presents to the office today for establishment with [facility] following [facility] admission with EGD/sigmoidoscopy for acute GIB. ER visit 11/22/24 - GIB, hgb 5.7, hematochezia/melena-hx leukemia, bicuspid bovine AVR, asthma, UC, prior colectomy+ileo-anal pouch,Churg-Geronimo syndrome; 11/28/24 hgb 8.1 outpt check. Abdomen/Pelvis CT from 11/22/24 reviewed. 11/24/24 EGD- Normal esophagus. Gastroparesis. Gastric stenosis was found at the pylorus. Duodenitis. Biopsied. 11/24/24 sigmoidoscopy- The perianal and digital rectal examinations were normal. Multiple 5 mm subepithelial nodules were found in the rectum with bleeding stigmata. Biopsies were taken with a cold forceps for histology. PATH-Fragments of duodenal mucosa with mild Ernst???s gland hyperplasia.Fragments of colonic mucosa with extensive ulceration, acute and chronic inflammation,granulation tissue reaction and reactive epithelial changes. 11/24/24 MRCP-Impression Heterogeneous mass in the left hepatic lobe with severe left intrahepatic biliary dilatation suggestive of cholangiocarcinoma. Recommend MRI of the liver with contrast and delayed imaging for further evaluation. Hepatomegaly. Cardiomegaly. 11/25/24 liver mass bx: PATH- well-differentiated adenocarcinoma Communicated pathology results to him and new consult to oncology. He continues to have daily hematochezia in diarrhea, complains of chronic cough, mild abdominal bloating and moderate to severe pruritus. He reports his appetite and energy level are improving. He reports occasional hemoptysis and spontaneous epistaxis. He denies difficulty chewing and swallowing, nausea, vomiting, heartburn, reflux, excessive gas, and constipation. 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 He states that he makes too much money to get assistance. ROS Const Constitutional: Positive for fatigue and weight change; No fever(s) ENT ENT: No difficulty swallowing Gastro GI: No abdominal pain, belching, bloating, change in bowel habits, change in stool character, coffee ground emesis, constipation, cramping, diarrhea, heartburn, difficulty swallowing, feeling full early, excessive flatus, incontinent of stools, Vomiting blood/hematemesis, Blood in stool, loose stools, Black,tarry stools, nausea/dyspepsia, pain with swallowing, vomiting or other Musc Musculoskeletal: Positive for back pain, muscle cramps, numbness and tingling; No joint pain Skin Skin: Positive for hair loss in leg, dry skin, yellowing of the eye, lesions, itchy eyes and rash Neuro Neurology: Positive for numbness and tingling Psych Psychiatric: No anxiety and No depression Endo Endocrine: Positive for fatigue and weight change Aller/Imm Allergy/Immunologic: Positive for itchy eyes Marques/Lymp Hematologic/Lymphatic: No easy bleeding or easy bruising Exam Const General: cooperative and no acute distress Nutritional Appearance: obese centrally obese Orientation: alert and oriented x3 HENM (more content not included)... Normal [facility] AFP, Tumor Markeron 11-27-19 AFP TUMOR CATHRYN < 1.8 Normal 0.0-8.4 [facility] Comment on above: Result Comment: [employer] Electrochemiluminescence Immunoassay (ECLIA) Values obtained with different assay methods or kits cannot be used interchangeably. Results cannot be interpreted as absolute evidence of the presence or absence of malignant disease. This test is not interpretable in females. Performed By: #### L 500.3400, L501.4020, L100.0100, M100.7900, L500.2500, L501.2450, L503.6005 #### [facility] [address] [place], [address] ANCAon 11-27-2024 Atypical pANCA >1:640 Abnormal Neg:<1:20 [facility] Comment on above: Result Comment: The atypical pANCA pattern has been observed in a significant percentage of patients with ulcerative colitis, primary sclerosing cholangitis and autoimmune hepatitis. Performed By: #### L 500.3400, L501.4020, L100.0100, M100.7900, L500.2500, L501.2450, L503.6005 #### [facility] [address] [place], [place], [id number] Cytoplasmic Ab <1:20 Normal Neg:<1:20 [facility] Comment on above: Performed By: #### L 500.3400, L501.4020, L100.0100, M100.7900, L500.2500, L501.2450, L503.6005 #### [facility] [address] [place], [place], [phone] Perinuclear Ab. <1:20 Normal Neg:<1:20 [facility] Comment on above: Result Comment: The presence of positive fluorescence exhibiting P-ANCA or C-ANCA patterns alone is not specific for the diagnosis of Rohit's Granulomatosis (WG) or microscopic polyangiitis. Decisions about treatment should not be based solely on ANCA IFA results. The International ANCA Group Consensus recommends follow up testing of positive sera with both AR- 3 and MPO-ANCA enzyme immunoassays. As many as 5% serum samples are positive only by EIA. Ref. AM J Clin Pathol 1999;111:507-513. Performed By: #### L 500.3400, L501.4020, L100.0100, M100.7900, L500.2500, L501.2450, L503.6005 #### [facility] [address] [place], [place], [address] Anti-Smooth Muscle ABSon ANTISMOOTH MUSC 17 Units Normal 0-19 [facility] Comment on above: Result Comment: Nega tive 0 - 19 Weak positive 20 - 30 Moderate to strong positive >30 Actin Antibodies are found in 52-85% of patients with autoimmune hepatitis or chronic active hepatitis and in 22% of patients with primary biliary cirrhosis. Performed at: [address] [id number] [employer] Operator: Sal Linton PhD, Phone: [phone] Performed By: #### L 500.3400, L501.4020, L100.0100, M100.7900, L500.2500, L501.2450, L503.6005 #### [facility] [address] [place], [place], [id number] Carbohydrate AG 19-9on 11-27 CA 19-9 64 U/mL High 0-35 [facility] Comment on above: Result Comment: [employer] Electrochemiluminescence Immunoassay (ECLIA) Values obtained with different assay methods or kits cannot be used interchangeably. Results cannot be interpreted as absolute evidence of the presence or absence of malignant disease. Performed By: #### L 500.3400, L501.4020, L100.0100, M100.7900, L500.2500, L501.2450, L503.6005 #### [facility] [address] [place], [place], [id number] Carcinoembryonic Antigenon 0 11-27-2024 CEA 3.4 ng/mL Normal 0.0-4.7 [facility] Comment on above: Result Comment: Nons mokers <3.9 Smokers <5.6 [employer] Electrochemiluminescence Immunoassay (ECLIA) Values obtained with different assay methods or kits cannot be used interchangeably. Results cannot be interpreted as absolute evidence of the presence or absence of malignant disease. Performed By: #### L 500.3400, L501.4020, L100.0100, M100.7900, L500.2500, L501.2450, L503.6005 #### [facility] [address] [place], [address] AMPARO + Protein Elect, Serumon 11-27-2024 Albumin [Mass/Vol] 2.3 g/dL Low 2.9-4.4 [facility] Comment on above: Performed By: #### L 500.3400, L501.4020, L100.0100, M100.7900, L500.2500, L501.2450, L503.6005 #### [facility] [address] [place], [address] Albumin/Globulin [Mass ratio] 0.5 {ratio} Low 0.7-1.7 [facility] Comment on above: Performed By: #### L 500.3400, L501.4020, L100.0100, M100.7900, L500.2500, L501.2450, L503.6005 #### [facility] [address] [place], [address] CYHDK-4-CTJL 0.4 g/dL Normal 0.0-0.4 [facility] Comment on above: Performed By: #### L 500.3400, L501.4020, L100.0100, M100.7900, L500.2500, L501.2450, L503.6005 #### [facility] [address] [place], [address] SNYFJ-3-OFHL 0.7 g/dL Normal 0.4-1.0 [facility] Comment on above: Performed By: #### L 500.3400, L501.4020, L100.0100, M100.7900, L500.2500, L501.2450, L503.6005 #### [facility] [address] [place], [address] BETA GLOBULIN 1.3 g/dL Normal 0.7-1.3 [facility] Comment on above: Performed By: #### L 500.3400, L501.4020, L100.0100, M100.7900, L500.2500, L501.2450, L503.6005 #### [facility] [address] [place], [address] GAMMA GLOBULIN 3.2 g/dL High 0.4-1.8 [facility] Comment on above: Performed By: #### L 500.3400, L501.4020, L100.0100, M100.7900, L500.2500, L501.2450, L503.6005 #### [facility] [address] [place], [address] Globulin (S) [Mass/Vol] 5.6 g/dL Abnormal 2.2-3.[address] [facility] Comment on above: Performed By: #### L 500.3400, L501.4020, L100.0100, M100.7900, L500.2500, L501.2450, L503.6005 #### [facility] [address] [place], [address] AMPARO RESULT,S Comment Normal . [facility] Comment on above: Result Comment: No m onoclonality detected. Performed By: #### L 500.3400, L501.4020, L100.0100, M100.7900, L500.2500, L501.2450, L503.6005 #### [facility] [address] [place], [address] IMMUNOGLOB A QN 607 mg/dL High 90-386 [facility] Comment on above: Performed By: #### L 500.3400, L501.4020, L100.0100, M100.7900, L500.2500, L501.2450, L503.6005 #### [facility] [address] [place], [address] IMMUNOGLOB G QN 3414 mg/dL High 603-1613 [facility] Comment on above: Performed By: #### L 500.3400, L501.4020, L100.0100, M100.7900, L500.2500, L501.2450, L503.6005 #### [facility] [address] [place], [place], [id number] (027) IMMUNOGLOB M QN 243 mg/dL High 20-172 [facility] Comment on above: Performed By: #### L 500.3400, L501.4020, L100.0100, M100.7900, L500.2500, L501.2450, L503.6005 #### [facility] [address] [place], [place], [id number] (203) M-Fidencio Not Observed Normal Not Observed [facility] Comment on above: Performed By: #### L 500.3400, L501.4020, L100.0100, M100.7900, L500.2500, L501.2450, L503.6005 #### [facility] [address] [place], [place], [id number] NOTE: Comment Normal . [facility] Comment on above: Result Comment: Prot ein electrophoresis scan will follow via computer, mail, or superintendent board mill delivery. Performed By: #### L 500.3400, L501.4020, L100.0100, M100.7900, L500.2500, L501.2450, L503.6005 #### [facility] [address] [place], [place], [id number] (565) Protein [Mass/Vol] 7.9 g/dL Normal 6.0-8.5 [facility] Comment on above: Performed By: #### L 500.3400, L501.4020, L100.0100, M100.7900, L500.2500, L501.2450, L503.6005 #### [facility] [address] [place], [place], [address] CONNIE Comprehensive Panelon ANTI-DNA (DS)AB 1 IU/mL Normal 0-9 [facility] Comment on above: Result Comment: Nega tive <5 Equivocal 5 - 9 Positive >9 Performed By: #### L 500.3400, L501.4020, L100.0100, M100.7900, L500.2500, L501.2450, L503.6005 #### [facility] [address], [place], [id number] ANTISCLERODERM 0.3 AI Normal 0.0-0.9 [facility] Comment on above: Performed By: #### L 500.3400, L501.4020, L100.0100, M100.7900, L500.2500, L501.2450, L503.6005 #### [facility] [address], [place], [id number] Absolute lymphocyte countOrd ered By: John Love on 11-26-2024 Lymphocytes Auto (Unsp spec) [#/Vol] 1.21 10*3/uL 0.83-4.51 [facility] Absolute neutrophil countOrd ered By: John Love on 11-26-2024 Neutrophils (Bld) [#/Vol] 7.1 10*3/uL 2.0-7.7 [facility] Albumin to globulin ratioOrd ered By: John Love on 11-26-2024 Albumin/Globulin [Mass ratio] 0.4 {ratio} Low 0.9-2.4 [facility] Anti-Mitochondrial ABon 11-08 ANTIMITOCHON AB <20.0 Normal 0.0-20.0 [facility] Comment on above: Result Comment: Nega tive 0.0 - 20.0 Equivocal 20.1 - 24.9 Positive >24.9 Mitochondrial (M2) Antibodies are found in 90-96% of patients with primary biliary cirrhosis. Performed at: [address] [id number] [employer]: Sal Linton PhD, Phone: [phone] Performed By: #### L 500.3400, L501.4020, L100.0100, M100.7900, L500.2500, L501.2450, L503.6005 #### [facility] [address] [place], [place], [id number] Automated lymphocyte count a s percentage of total leukocytesOrdered By: John Love on 11-26-2024 Lymphocytes/100 WBC Auto (Unsp spec) 13.1 % Low [facility] Basophil percentageOrdered B y: John Love on 11-26-2024 Basophils/100 WBC (Bld) 0.5 % 0-[address] [facility] Bilirubin, totalOrdered By: John Love on 11-26-2024 Bilirubin [Mass/Vol] 1.20 mg/dL High 0.20-1.00 [facility] Comment on above: For patients on eltr ombopag therapy, use of Dimension [place] TBIL is not recommended. Blood urea nitrogen (BUN)/cr eatinine ratioOrdered By: John Love on 11-26-2024 Urea nitrogen/Creatinine [Mass ratio] 27.1 mg/mg High 10- [facility] CBC W/Diff, Automatedon 11-08 Anisocytosis Ql (Bld) 2+ Normal [facility] Comment on above: Performed By: #### L 500.3400, L501.4020, L100.0100, M100.7900, L500.2500, L501.2450, L503.6005 #### [facility] [address] [place], [place], [id number] HYPOCHROMASIA 2+ Normal [facility] Comment on above: Performed By: #### L 500.3400, L501.4020, L100.0100, M100.7900, L500.2500, L501.2450, L503.6005 #### [facility] [address] [place], [address] Carbon dioxide measurementOr dered By: John Love on 11-26-2024 CO2 [Moles/Vol] 26.0 mmol/L 21.0-32.0 [facility] Chloride measurementOrdered By: John Love on 11-26-2024 Chloride [Moles/Vol] 110 mmol/L High 98-107 [facility] Comprehensive Metabolic Prof ilon 11-26-2024 Albumin [Mass/Vol] 2.0 g/dL Low 3.2-5.0 [facility] Comment on above: Performed By: #### L 500.3400, L501.4020, L100.0100, M100.7900, L500.2500, L501.2450, L503.6005 #### [facility] [address] [place], [address] Albumin/Globulin [Mass ratio] 0.4 {ratio} Low 0.9-2.4 [facility] Comment on above: Performed By: #### L 500.3400, L501.4020, L100.0100, M100.7900, L500.2500, L501.2450, L503.6005 #### [facility] [address] [place], [address] ALK P 549 U/L High 45-117 [facility] Comment on above: Performed By: #### L 500.3400, L501.4020, L100.0100, M100.7900, L500.2500, L501.2450, L503.6005 #### [facility] [address] [place], [address] ALT [Catalytic activity/Vol] 26 U/L Normal 16-61 [facility] Comment on above: Performed By: #### L 500.3400, L501.4020, L100.0100, M100.7900, L500.2500, L501.2450, L503.6005 #### [facility] [address] [place], [address] AST [Catalytic activity/Vol] 38 U/L High 15-37 [facility] Comment on above: Performed By: #### L 500.3400, L501.4020, L100.0100, M100.7900, L500.2500, L501.2450, L503.6005 #### [facility] [address] [place], [address] Bilirubin [Mass/Vol] 1.20 mg/dL High 0.20-1.00 [facility] Comment on above: Result Comment: For patients on eltrombopag therapy, use of Dimension [place] TBIL is not recommended. Performed By: #### L 500.3400, L501.4020, L100.0100, M100.7900, L500.2500, L501.2450, L503.6005 #### [facility] [address] [place], [address] BUN/CRE 27.1 RATIO High 10-20 [facility] Comment on above: Performed By: #### L 500.3400, L501.4020, L100.0100, M100.7900, L500.2500, L501.2450, L503.6005 #### [facility] [address] [place], [address] CA,Total 8.3 mg/dL Low 8.5-10.1 [facility] Comment on above: Performed By: #### L 500.3400, L501.4020, L100.0100, M100.7900, L500.2500, L501.2450, L503.6005 #### [facility] [address] [place], [address] Chloride [Moles/Vol] 110 mmol/L High 98-107 [facility] Comment on above: Performed By: #### L 500.3400, L501.4020, L100.0100, M100.7900, L500.2500, L501.2450, L503.6005 #### [facility] [address] [place], [address] CO2 [Moles/Vol] 26.0 mmol/L Normal 21.0-32.0 [facility] Comment on above: Performed By: #### L 500.3400, L501.4020, L100.0100, M100.7900, L500.2500, L501.2450, L503.6005 #### [facility] [address] [place], [address] Creatinine [Mass/Vol] 0.88 mg/dL Normal 0.70-1.30 [facility] Comment on above: Result Comment: The validity of the calculated GFR GFRAA in patients over 70 years has not been determined. Clinical correlation is essential. Performed By: #### L 500.3400, L501.4020, L100.0100, M100.7900, L500.2500, L501.2450, L503.6005 #### [facility] [address] [place], [address] ECRCL 158.78 ml/min Normal [facility] Comment on above: Performed By: #### L 500.3400, L501.4020, L100.0100, M100.7900, L500.2500, L501.2450, L503.6005 #### [facility] [address] [place], [address] EST GFR - AA 115 mL/min Normal >60 [facility] Comment on above: Result Comment: Afri can Mexican GFR Calc Performed By: #### L 500.3400, L501.4020, L100.0100, M100.7900, L500.2500, L501.2450, L503.6005 #### [facility] [address] [place], [address] GAP 3 Low 5-15 [facility] Comment on above: Performed By: #### L 500.3400, L501.4020, L100.0100, M100.7900, L500.2500, L501.2450, L503.6005 #### [facility] [address] [place], [address] GFR/1.73 sq M.predicted among non-blacks MDRD (S/P/Bld) [Vol rate/Area] 95 mL/min/{1.73_m2} Normal >60 [facility] Comment on above: Result Comment: Non- GFR Calc Performed By: #### L 500.3400, L501.4020, L100.0100, M100.7900, L500.2500, L501.2450, L503.6005 #### [facility] [address] [place], [address] Globulin (S) [Mass/Vol] 5.6 g/dL High 2.2-4.2 [facility] Comment on above: Performed By: #### L 500.3400, L501.4020, L100.0100, M100.7900, L500.2500, L501.2450, L503.6005 #### [facility] [address] [place], [address] Glucose [Mass/Vol] 83 mg/dL Normal 74-106 [facility] Comment on above: Performed By: #### L 500.3400, L501.4020, L100.0100, M100.7900, L500.2500, L501.2450, L503.6005 #### [facility] [address] [place], [address] Potassium [Moles/Vol] 3.7 mmol/L Normal 3.5-5.1 [facility] Comment on above: Performed By: #### L 500.3400, L501.4020, L100.0100, M100.7900, L500.2500, L501.2450, L503.6005 #### [facility] [address] [place], [address] Sodium [Moles/Vol] 139 mmol/L Normal 136-145 [facility] Comment on above: Performed By: #### L 500.3400, L501.4020, L100.0100, M100.7900, L500.2500, L501.2450, L503.6005 #### [facility] [address] [place], [address] T PROT 7.6 g/dL Normal 6.4-8.2 [facility] Comment on above: Performed By: #### L 500.3400, L501.4020, L100.0100, M100.7900, L500.2500, L501.2450, L503.6005 #### [facility] [address] [place], [address] Urea nitrogen [Mass/Vol] 24 mg/dL High 7-18 [facility] Comment on above: Performed By: #### L 500.3400, L501.4020, L100.0100, M100.7900, L500.2500, L501.2450, L503.6005 #### [facility] [address] [place], [address] Discharge Instructionon 11-[address] [facility] Medical Records Department [address] [place] [address] Instructions for Home/Discharge Instructions 11/26/24 1640 MR#: [id number] Acct: [id number] Name: DENY BRONSON Rep #: [id number] : 1970 54 From: Salena Matthews MD PCP: Dr. Jose Ramachandran, DO Status:ADM IN Discharge Instructions Diet Discharge Diet: Low fat / Low cholesterol DC O2, CPAP, BIPAP needs Home O2 Discharge instructions: No Dressing / Incision Discharge Activity: Return to Normal Activity Weight Bearing Status: Weight bearing as tolerated Dressing / Incision Call your doctor if you observe: Fever of 101 or Higher, Shortness of breath, Dizziness, Swelling in the ankles and Chest pain Follow Up Care Test Results: Test results from this visit will be discussed in further detail at your follow-up appointment, if applicable. Discharge Plan Admission Admit Date/Time: 11/22/24 19:08 Primary Reason for Your Visit: liver mass Attending Provider: Salena Matthews Primary Care Provider: Jose Ramachandran Consulting Providers: Dinah Lazaro; John Love Instructions Patient Instructions: Iron Deficiency Anemia Ch Discharge Orders/Prescriptions Prescriptions: New furosemide [Lasix] 20 mg tablet 20 mg PO DAILY Qty: 30 2RF potassium chloride 10 mEq tablet extended release 10 meq PO DAILY Qty: 30 1RF pantoprazole 40 mg tablet,delayed release (DR/EC) 40 mg PO DAILY Qty: 30 2RF Continued guaifenesin [Mucinex] 1,200 mg tablet extended release 12hr 1,200 mg PO DAILY Discontinued ivermectin 3 mg tablet 3 mg PO DAILY Patient Comments: PT UNSURE OF STRENGTH. STATES HE GETS FROM THE [facility]. Referrals / Follow Up: Jose Ramachandran DO [Primary Care Provider] - Within 1 Week Friend,DO Kailash [Med Staff - Active Staff] - Within 2 Weeks Care Physician,Lucretia Primary [Non-Staff] - Disposition Disposition (needs filled in before D/C Order can be placed): Home, Self Care 11/26/24 1641 Salena Matthews MD CC: Dr. Dinah Lazaro DO; Dr. John Love MD; Dr. Jose Ramachandran DO Signed Normal [facility] Eosinophil percentageOrdered By: John Love on 11-26-2024 Eosinophils/100 WBC (Bld) 1.4 % 0-5 [facility] Erythrocyte distribution wid th ratioOrdered By: John Love on 11-26-2024 Erythrocyte distribution width (RBC) [Ratio] 23.5 % High 11.6-14.6 [facility] Erythrocyte distribution wid th standard deviationOrdered By: John Love on 11-26-2024 Erythrocyte distribution width (RBC) [Ratio] 61.0 fl High 35.1-43.9 [facility] Glomerular filtration rate ( GFR) estimationOrdered By: John Love on 11-26-2024 GFR/1.73 sq M.predicted among non-blacks MDRD (S/P/Bld) [Vol rate/Area] 95 mL/min/{1.73_m2} >60 [facility] Comment on above: Non- GFR Calc Glucose measurementOrdered B y: John Love on 11-26-2024 Glucose [Mass/Vol] 83 mg/dL 74-106 [facility] Hematocrit Auto (Bld) [Volum e fraction]Ordered By: John Love on 11-26-2024 Hematocrit (Bld) [Volume fraction] 27.6 % Low 40-54 [facility] Hemoglobin measurementOrdere d By: John Love on 11-26-2024 Hemoglobin (Bld) [Mass/Vol] 7.8 g/dL Low 13.0-16.5 [facility] Hypochromatic red blood cell detectionOrdered By: John Love on 11-26-2024 Hypochromia Ql (Bld) 2+ [facility] Immature granulocytes/100 WB C Auto (Bld)Ordered By: John Love on 11-26-2024 Immature granulocytes/100 WBC (Bld) 0.600 % 0.0-0.9 [facility] Comment on above: IG% - Immature Granu locytes (promyelocytes, myelocytes and metamyelocytes) > 1% indicates that a LEFT SHIFT is Present. Laboratory - Chemistry and C hemistry - challengeOrdered By: John Love on 11-26-2024 AST [Catalytic activity/Vol] 38 U/L High 15-37 [facility] - Hematology and Cell countsOrdered By: John Love on 11-26-2024 Anisocytosis Ql (Bld) 2+ [facility] MCV (mean corpuscular volume ) determinationOrdered By: John Love on 11-26-2024 MCV (RBC) [Entitic vol] 72.8 fL Low 80-[address] [facility] Magnesiumon 11-26-2024 Magnesium [Mass/Vol] 1.6 mg/dL Normal 1.6-2.6 [facility] Comment on above: Performed By: #### L 501.5204 ####[facility] [address] [place], [address] Magnesium measurementOrdered By: Salena Matthews on 11-26-2024 Magnesium [Mass/Vol] 1.6 mg/dL 1.6-2.6 [facility] Mean corpuscular hemoglobin (MCH) determinationOrdered By: John Love on 11-26-2024 MCH (RBC) [Entitic mass] 20.6 pg Low 27.0-32.0 [facility] Mean corpuscular hemoglobin concentration (MCHC) determinationOrdered By: John Love on 11-26-2024 MCHC (RBC) [Mass/Vol] 28.3 g/dL Low 32-36 [facility] Mean platelet volume determi nationOrdered By: John Love on 11-26-2024 Platelet mean volume (Bld) [Entitic vol] 9.1 fL 6.2-12.0 [facility] Monocyte percentageOrdered B y: John Love on 11-26-2024 Monocytes/100 WBC (Bld) 8.0 % 0-[address] [facility] Neutrophil percentageOrdered By: John Love on 11-26-2024 Neutrophils/100 WBC (Bld) 76.4 % High 47-70 [facility] Nucleated red blood cell per centageOrdered By: John Love on 11-26-2024 Nucleated RBC/100 WBC (Bld) [Ratio] 0 % 0-5 [facility] Platelet countOrdered By: Doreen Love on 11-26-2024 Platelets (Bld) [#/Vol] 345 10*3/uL 150-450 [facility] Potassium measurementOrdered By: John Love on 11-26-2024 Potassium [Moles/Vol] 3.7 mmol/L 3.5-5.1 [facility] RBC Auto (Bld) [#/Vol]Ordere d By: John Love on 11-26-2024 RBC (Bld) [#/Vol] 3.79 10*6/uL Low 4.6-6.2 [facility] Serum anion gap measurementO rdered By: John Love on 11-26-2024 Anion gap [Moles/Vol] 3 mmol/L Low 5-15 [facility] Serum globulin measurementOr dered By: John Love on 11-26-2024 Globulin (S) [Mass/Vol] 5.6 g/dL High 2.2-4.[address] [facility] Serum or plasma alanine arroyo otransferase (ALT) measurementOrdered By: John Love on 11-26-2024 ALT [Catalytic activity/Vol] 26 U/L 16-61 [facility] Serum or plasma albumin bernard urement (mass/volume)Ordered By: John Love on 11-26-2024 Albumin [Mass/Vol] 2.0 g/dL Low 3.2-5.0 [facility] Serum or plasma alkaline rubio sphatase measurementOrdered By: John Love on 11-26-2024 ALP [Catalytic activity/Vol] 549 U/L High 45-117 [facility] Serum or plasma calcium bernard urement (mass/volume)Ordered By: John Love on 11-26-2024 Calcium [Mass/Vol] 8.3 mg/dL Low 8.5-10.1 [facility] Serum or plasma creatinine m easurement (mass/volume)Ordered By: John Love on 11-26-2024 Creatinine [Mass/Vol] 0.88 mg/dL 0.70-1.30 [facility] Comment on above: The validity of the calculated GFR & GFRAA in patients over 70 years has not been determined. Clinical correlation is essential. Serum or plasma urea nitroge n measurement (mass/volume)Ordered By: John Love on 11-26-2024 Urea nitrogen [Mass/Vol] 24 mg/dL High 7-18 [facility] Sodium levelOrdered By: Edwin Love on 11-26-2024 Sodium [Moles/Vol] 139 mmol/L 136-145 [facility] Total proteinOrdered By: Syed larosedipti Kate on 11-26-2024 Protein [Mass/Vol] 7.6 g/dL 6.4-8.2 [facility] White blood cell (WBC) count Ordered By: John Love on 11-26-2024 WBC (Bld) [#/Vol] 9.2 10*3/uL 4.4-11.0 [facility] Basic Metabolic Profile (BMP )on 11-25-2024 BUN Normal 7-18 [facility] Comment on above: Result Comment: Canc elled via OM: MD Ordered Performed By: #### L 500.3400, L501.4020, L100.0100, M100.7900, L500.2500, L501.2450, L503.6005 #### [facility] [address] [place], [address] BUN/CRE Normal 10-20 [facility] Comment on above: Result Comment: Canc elled via OM: MD Ordered Performed By: #### L 500.3400, L501.4020, L100.0100, M100.7900, L500.2500, L501.2450, L503.6005 #### [facility] [address] [place], [address] CA,Total Normal 8.5-10.1 [facility] Comment on above: Result Comment: Canc elled via OM: MD Ordered Performed By: #### L 500.3400, L501.4020, L100.0100, M100.7900, L500.2500, L501.2450, L503.6005 #### [facility] [address] [place], [address] CL Normal 98-107 [facility] Comment on above: Result Comment: Canc elled via OM: MD Ordered Performed By: #### L 500.3400, L501.4020, L100.0100, M100.7900, L500.2500, L501.2450, L503.6005 #### [facility] [address] [place], [address] CO2 Normal 21.0-32.0 [facility] Comment on above: Result Comment: Canc elled via OM: MD Ordered Performed By: #### L 500.3400, L501.4020, L100.0100, M100.7900, L500.2500, L501.2450, L503.6005 #### [facility] [address] [place], [address] CREAT,SERUM Normal 0.70-1.30 [facility] Comment on above: Result Comment: Canc elled via OM: MD Ordered Performed By: #### L 500.3400, L501.4020, L100.0100, M100.7900, L500.2500, L501.2450, L503.6005 #### [facility] [address] [place], [address] EST GFR Normal >60 [facility] Comment on above: Result Comment: Canc elled via OM: MD Ordered Performed By: #### L 500.3400, L501.4020, L100.0100, M100.7900, L500.2500, L501.2450, L503.6005 #### [facility] [address] [place], [address] EST GFR - AA Normal >60 [facility] Comment on above: Result Comment: Canc elled via OM: MD Ordered Performed By: #### L 500.3400, L501.4020, L100.0100, M100.7900, L500.2500, L501.2450, L503.6005 #### [facility] [address] [place], [address] GAP Normal 5-15 [facility] Comment on above: Result Comment: Canc elled via OM: MD Ordered Performed By: #### L 500.3400, L501.4020, L100.0100, M100.7900, L500.2500, L501.2450, L503.6005 #### [facility] [address] [place], [address] GLU Normal 74-106 [facility] Comment on above: Result Comment: Canc elled via OM: MD Ordered Performed By: #### L 500.3400, L501.4020, L100.0100, M100.7900, L500.2500, L501.2450, L503.6005 #### [facility] [address] [place], [address] Potassium Normal 3.5-5.1 [facility] Comment on above: Result Comment: Canc elled via OM: MD Ordered Performed By: #### L 500.3400, L501.4020, L100.0100, M100.7900, L500.2500, L501.2450, L503.6005 #### [facility] [address] [place], [address] Basic Metabolic Profile (BMP) Normal 136-145 [facility] Comment on above: Result Comment: Canc elled via OM: MD Ordered Performed By: #### L 500.3400, L501.4020, L100.0100, M100.7900, L500.2500, L501.2450, L503.6005 #### [facility] [address] [place], [address] Biopsy/Inj or Needle Placeme nton 11-25-2024 Biopsy/Inj or Needle Placement [facility] Imaging Services [address] [place] [address] Biopsy/Inj or Needle Placement MR#: [id number] Acct: [id number] Name: DENY BRONSON Shai Rep #: [id number] : 1970 M 54 From: Judah sevilla MD PCP: Care Physician,No Primary Status: ADM IN Study: Biopsy/Inj or Needle Placement Date of Exam: 0 11/25/24 Exam# [id number] Ordering Dr: Kailash Gustafson DO EXAM: CT-guided liver biopsy. CLINICAL HISTORY: Mass in the left lobe of the liver. COMPARISON: Comparison is made with prior CT scan of the abdomen dated November 22, 2024. TECHNIQUE: The patient was in the supine position. The procedure as well as the benefits and possible complications including bleeding infection were explained to the patient. Informed consent was obtained. The lesion in the left lobe of the liver was localized. The overlying skin was prepped and draped in the usual sterile fashion. Conscious sedation was performed. The patient received 1 mg of Versed and 25 mcg of fentanyl intravenously. Conscious sedation was started at 11:16 a.m. and terminated 11:39 a.m.. The patient was independently monitored by the department nurse. Following local anesthetic application, an 18 gauge core biopsy needle system was placed into the abnormality in the left lobe of the liver anteriorly. 5 18 gauge core biopsies were performed. The specimen was sent to the laboratory for analysis. The patient tolerated the procedure well. No immediate complication is seen. FINDINGS: CT-guided biopsy of the left lobe of the liver. CT/Biopsy/Inj or Needle Placement IMPRESSION: CT-guided biopsy of the left lobe of the liver. Conscious sedation was performed. The patient tolerated the procedure well. No immediate complication seen. Reading Location: [place] [address] CC: No Primary Care Physician; Kailash Gustafson DO Oncology Registrar: Signed Normal [facility] Blood polychromasia detectio n by light microscopyOrdered By: John Love on 11-25-2024 Polychromasia LM Ql (Bld) 1+ [facility] CBC W/Diff, Automatedon 11-08 Anisocytosis Ql (Bld) 3+ Normal [facility] Comment on above: Performed By: #### L 500.3400, L501.4020, L100.0100, M100.7900, L500.2500, L501.2450, L503.6005 #### [facility] [address] [place], [address] MACROCYTOSIS 1+ Normal [facility] Comment on above: Performed By: #### L 500.3400, L501.4020, L100.0100, M100.7900, L500.2500, L501.2450, L503.6005 #### [facility] [address] [place], [address] MICROCYTIC 2+ Normal [facility] Comment on above: Performed By: #### L 500.3400, L501.4020, L100.0100, M100.7900, L500.2500, L501.2450, L503.6005 #### [facility] [address] [place], [address] OVALOCYTE 1+ Normal [facility] Comment on above: Performed By: #### L 500.3400, L501.4020, L100.0100, M100.7900, L500.2500, L501.2450, L503.6005 #### [facility] [address] [place], [address] POLYCHROMASIA 1+ Normal [facility] Comment on above: Performed By: #### L 500.3400, L501.4020, L100.0100, M100.7900, L500.2500, L501.2450, L503.6005 #### [facility] [address] [place], [address] TARGET CELLS 1+ Normal [facility] Comment on above: Performed By: #### L 500.3400, L501.4020, L100.0100, M100.7900, L500.2500, L501.2450, L503.6005 #### [facility] [address] [place], [address] Comprehensive Metabolic Prof deon 11-25-2024 Albumin [Mass/Vol] 2.0 g/dL Low 3.2-5.0 [facility] Comment on above: Performed By: #### L 500.3400, L501.4020, L100.0100, M100.7900, L500.2500, L501.2450, L503.6005 #### [facility] [address] [place], [address] Albumin/Globulin [Mass ratio] 0.4 {ratio} Low 0.9-2.4 [facility] Comment on above: Performed By: #### L 500.3400, L501.4020, L100.0100, M100.7900, L500.2500, L501.2450, L503.6005 #### [facility] [address] [place], [address] ALK P 586 U/L High 45-117 [facility] Comment on above: Performed By: #### L 500.3400, L501.4020, L100.0100, M100.7900, L500.2500, L501.2450, L503.6005 #### [facility] [address] [place], [address] ALT [Catalytic activity/Vol] 23 U/L Normal 16-61 [facility] Comment on above: Performed By: #### L 500.3400, L501.4020, L100.0100, M100.7900, L500.2500, L501.2450, L503.6005 #### [facility] [address] [place], [address] AST [Catalytic activity/Vol] 38 U/L High 15-37 [facility] Comment on above: Performed By: #### L 500.3400, L501.4020, L100.0100, M100.7900, L500.2500, L501.2450, L503.6005 #### [facility] [address] [place], [address] Bilirubin [Mass/Vol] 0.90 mg/dL Normal 0.20-1.00 [facility] Comment on above: Result Comment: For patients on eltrombopag therapy, use of Dimension [place] TBIL is not recommended. Performed By: #### L 500.3400, L501.4020, L100.0100, M100.7900, L500.2500, L501.2450, L503.6005 #### [facility] [address] [place], [address] BUN/CRE 21.3 RATIO High 10-20 [facility] Comment on above: Performed By: #### L 500.3400, L501.4020, L100.0100, M100.7900, L500.2500, L501.2450, L503.6005 #### [facility] [address] [place], [address] CA,Total 8.2 mg/dL Low 8.5-10.1 [facility] Comment on above: Performed By: #### L 500.3400, L501.4020, L100.0100, M100.7900, L500.2500, L501.2450, L503.6005 #### [facility] [address] [place], [address] Chloride [Moles/Vol] 108 mmol/L High 98-107 [facility] Comment on above: Performed By: #### L 500.3400, L501.4020, L100.0100, M100.7900, L500.2500, L501.2450, L503.6005 #### [facility] [address] [place], [address] CO2 [Moles/Vol] 23.0 mmol/L Normal 21.0-32.0 [facility] Comment on above: Performed By: #### L 500.3400, L501.4020, L100.0100, M100.7900, L500.2500, L501.2450, L503.6005 #### [facility] [address] [place], [place], [id number] (567) Creatinine [Mass/Vol] 0.99 mg/dL Normal 0.70-1.30 [facility] Comment on above: Result Comment: The validity of the calculated GFR GFRAA in patients over 70 years has not been determined. Clinical correlation is essential. Performed By: #### L 500.3400, L501.4020, L100.0100, M100.7900, L500.2500, L501.2450, L503.6005 #### [facility] [address] [place], [place], [phone] (620) ECRCL 101.95 ml/min Normal [facility] Comment on above: Performed By: #### L 500.3400, L501.4020, L100.0100, M100.7900, L500.2500, L501.2450, L503.6005 #### [facility] [address] [place], [place], [phone] (895) EST GFR - AA 101 mL/min Normal >60 [facility] Comment on above: Result Comment: Afri can Mexican GFR Calc Performed By: #### L 500.3400, L501.4020, L100.0100, M100.7900, L500.2500, L501.2450, L503.6005 #### [facility] [address] [place], [address] GAP 8 Normal 5-15 [facility] Comment on above: Performed By: #### L 500.3400, L501.4020, L100.0100, M100.7900, L500.2500, L501.2450, L503.6005 #### [facility] [address] [place], [place], [phone] ([address] GFR/1.73 sq M.predicted among non-blacks MDRD (S/P/Bld) [Vol rate/Area] 84 mL/min/{1.73_m2} Normal >60 [facility] Comment on above: Result Comment: Non- GFR Calc Performed By: #### L 500.3400, L501.4020, L100.0100, M100.7900, L500.2500, L501.2450, L503.6005 #### [facility] [address] [place], [address] Globulin (S) [Mass/Vol] 5.7 g/dL High 2.2-4.[address] [facility] Comment on above: Performed By: #### L 500.3400, L501.4020, L100.0100, M100.7900, L500.2500, L501.2450, L503.6005 #### [facility] [address] [place], [address] Glucose [Mass/Vol] 133 mg/dL High 74-106 [facility] Comment on above: Result Comment: Fast ing Glucose result greater than or equal to 126 mg/dL suggests DIABETES MELLITUS per A.D.A. criteria. Performed By: #### L 500.3400, L501.4020, L100.0100, M100.7900, L500.2500, L501.2450, L503.6005 #### [facility] [address] [place], [address] Potassium [Moles/Vol] 3.7 mmol/L Normal 3.5-5.1 [facility] Comment on above: Performed By: #### L 500.3400, L501.4020, L100.0100, M100.7900, L500.2500, L501.2450, L503.6005 #### [facility] [address] [place], [address] Sodium [Moles/Vol] 139 mmol/L Normal 136-145 [facility] Comment on above: Performed By: #### L 500.3400, L501.4020, L100.0100, M100.7900, L500.2500, L501.2450, L503.6005 #### [facility] [address] [place], [place], [phone] T PROT 7.7 g/dL Normal 6.4-8.2 [facility] Comment on above: Performed By: #### L 500.3400, L501.4020, L100.0100, M100.7900, L500.2500, L501.2450, L503.6005 #### [facility] [address] [place], [place], [phone] Urea nitrogen [Mass/Vol] 21 mg/dL High 04-24 [facility] Comment on above: Performed By: #### L 500.3400, L501.4020, L100.0100, M100.7900, L500.2500, L501.2450, L503.6005 #### [facility] [address] [place], [id number] Macrocytes detectionOrdered By: John Love on 11-25-2024 Macrocytes Ql (Bld) 1+ [facility] Ovalocyte detectionOrdered B y: John Love on 11-25-2024 Ovalocytes LM Ql (Bld) 1+ [facility] Special Stain Group IIon Special Stain Group II -------- Patient Age/Sex Location Account Attending Physician BRONSONDENY LARSEN 54/M [facility] [id number] Dr. Salena Matthews MD Specimen: [id number] Received: 11/25/24 Status: RODERICK Meek Num: [id number] Spec Type: ASP RAD Subm Dr: Dr. John Love MD HEADER OPERATION: CT guided liver biopsy PRE-OP DIAGNOSIS: Liver mass TISSUE SUBMITTED: 18 gauge x 4 cores MICROSCOPIC DIAGNOSIS Liver mass, CT guided core biopsy: Well differentiated glands with intestinal differentiation, consistent with well-differentiated adenocarcinoma. Liver tissue is not present. See comment. SJ.mr 12/04/2024 COMMENT The specimen is evaluated at the time of biopsy by Dr. Penny. Immediate Evaluation = Marked acute inflammation. Negative for malignant cells. Numerous organisms are consistent with bacteria are noted. Reported to Dr. Montgomery at 11:49am on 11/25/2024. The specimen is sent to [facility] for expert opinion, reviewed by Dr. Harding and the above diagnosis is rendered. The complete report is viewable in the patient's EMR. Dr. 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 Immunostains positive for CK20, CDX2, SATB2, CK17, CK19 and MUC2, negative for CK7, Arginase-1, PAX8, and MUC5AC support intestinal differentiation. Correlation with clinical, radiologic findings and appropriate follow up are necessary. This case has been reviewed in consultation with Dr. Chu who concurs with above diagnosis. IDC:FA MICROSCOPIC DESCRIPTION Slides are reviewed. GROSS DESCRIPTION Received in fixative is one container labeled with the patient's name and designated Liver biopsy. The specimen consists of a wooden stick and fragments of jesus tissue mostly cores which are numerous in number and range from 3mm to 1.2cm in length. The tissue together aggregates to approximately 5-6m and each core is at most 1mm in diameter. The specimen is strained through a biopsy bag and is submitted in total one cassette. 11/25/2024 TC:0 Patient Age/Sex Location Account Attending Physician DENY BRONSON 54/M [facility] [id number] Dr. Salena Matthews MD CPT:93083,50027 ADDENDUM Addendum 1 Entered: 12/22/24-1621 This addendum is added to incorporate an outside pathology consultation report. The case was examined at [facility] by Dr. Alannah Keith (#[id number]) and the following diagnosis was rendered. 1. Liver mass, CT-guided core biopsy: Colorectal cancer NGS panel: NEGATIVE IDH 1 / IDH 2 mutation panel: NEGATIVE Please see complete above mentioned consultation report in EMR Addendum Signed (signature on file) Dr. Tammy Gallego MD 12/22/241621 Patient Age/Sex Location Account Attending Physician DENY BRONSON 54/M [facility] [id number] Dr. Salena Matthews MD Signed (signature on file) Dr. Rick Penny MD 12/04/24 1405 Normal [facility] Comment on above: Performed By: #### L 500.3400, L501.4020, L100.0100, M100.7900, L500.2500, L501.2450, L503.6005 #### [facility] [place], [address] Target cell detectionOrdered By: John Love on 11-25-2024 Target cells LM Ql (Bld) 1+ [facility] Activated partial thrombopla stin time (aPTT) in platelet poor plasma by coagulation aOrdered By: Kailash Gustafson on 11-24-2024 aPTT Coag (PPP) [Time] 30.0 s 24.1-36.2 [facility] Albumin Elph [Mass/Vol]Order ed By: Kailash Gustafson on 11-24-2024 Albumin [Mass/Vol] 2.3 g/dL Low 2.9-4.4 [facility] Basic Metabolic Profile (BMP )on 11-24-2024 BUN/CRE 18.1 RATIO Normal 10-20 [facility] Comment on above: Performed By: #### L 500.3400, L501.4020, L100.0100, M100.7900, L500.2500, L501.2450, L503.6005 #### [facility] [address] [place], [address] CA,Total 8.1 mg/dL Low 8.5-10.1 [facility] Comment on above: Performed By: #### L 500.3400, L501.4020, L100.0100, M100.7900, L500.2500, L501.2450, L503.6005 #### [facility] [address] [place], [address] Chloride [Moles/Vol] 109 mmol/L High 98-107 [facility] Comment on above: Performed By: #### L 500.3400, L501.4020, L100.0100, M100.7900, L500.2500, L501.2450, L503.6005 #### [facility] [address] [place], [address] CO2 [Moles/Vol] 23.0 mmol/L Normal 21.0-32.0 [facility] Comment on above: Performed By: #### L 500.3400, L501.4020, L100.0100, M100.7900, L500.2500, L501.2450, L503.6005 #### [facility] [address] [place], [address] Creatinine [Mass/Vol] 0.77 mg/dL Normal 0.70-1.30 [facility] Comment on above: Result Comment: The validity of the calculated GFR GFRAA in patients over 70 years has not been determined. Clinical correlation is essential. Performed By: #### L 500.3400, L501.4020, L100.0100, M100.7900, L500.2500, L501.2450, L503.6005 #### [facility] [address] [place], [address] ECRCL 131.08 ml/min Normal [facility] Comment on above: Performed By: #### L 500.3400, L501.4020, L100.0100, M100.7900, L500.2500, L501.2450, L503.6005 #### [facility] [address] [place], [address] EST GFR - AA 135 mL/min Normal >60 [facility] Comment on above: Result Comment: Afri can Mexican GFR Calc Performed By: #### L 500.3400, L501.4020, L100.0100, M100.7900, L500.2500, L501.2450, L503.6005 #### [facility] [address] [place], [address] GAP 7 Normal 5-15 [facility] Comment on above: Performed By: #### L 500.3400, L501.4020, L100.0100, M100.7900, L500.2500, L501.2450, L503.6005 #### [facility] [address] [place], [address] GFR/1.73 sq M.predicted among non-blacks MDRD (S/P/Bld) [Vol rate/Area] 111 mL/min/{1.73_m2} Normal >60 [facility] Comment on above: Result Comment: Non- GFR Calc Performed By: #### L 500.3400, L501.4020, L100.0100, M100.7900, L500.2500, L501.2450, L503.6005 #### [facility] [address] [place], [address] Glucose [Mass/Vol] 76 mg/dL Normal 74-106 [facility] Comment on above: Performed By: #### L 500.3400, L501.4020, L100.0100, M100.7900, L500.2500, L501.2450, L503.6005 #### [facility] [address] [place], [address] Potassium [Moles/Vol] 3.4 mmol/L Low 3.5-5.1 [facility] Comment on above: Performed By: #### L 500.3400, L501.4020, L100.0100, M100.7900, L500.2500, L501.2450, L503.6005 #### [facility] [address] [place], [address] Sodium [Moles/Vol] 139 mmol/L Normal 136-145 [facility] Comment on above: Performed By: #### L 500.3400, L501.4020, L100.0100, M100.7900, L500.2500, L501.2450, L503.6005 #### [facility] [address] [place], [address] Urea nitrogen [Mass/Vol] 14 mg/dL Normal 7-18 [facility] Comment on above: Performed By: #### L 500.3400, L501.4020, L100.0100, M100.7900, L500.2500, L501.2450, L503.6005 #### [facility] [address] [place], [address] CA 19-9 agOrdered By: Landon sauceda Friend on 11-24-2024 CA 19-9 ag 64 U/mL High 0-35 [facility] Comment on above: [employer] El ectrochemiluminescence Immunoassay(ECLIA)Values obtained with different assay methods or kits cannotbe used interchangeably. Results cannot be interpreted asabsolute evidence of the presence or absence of malignantdisease. CBC W/Diff, Automatedon 11-08 PATH REV Reviewed Normal [facility] Comment on above: Result Comment: EVITA RE Microcytic anemia. Clinical correlation necessary. Rick Penny M.D. 11/24/24 AMENDED REPORT 11/24/24 1607 PATH REV previously reported as: February Performed By: #### L 500.3400, L501.4020, L100.0100, M100.7900, L500.2500, L501.2450, L503.6005 #### [facility] [address] [place], [address] Anisocytosis Ql (Bld) 2+ Normal [facility] Comment on above: Performed By: #### L 500.3400, L501.4020, L100.0100, M100.7900, L500.2500, L501.2450, L503.6005 #### [facility] [address] [place], [address] EGD Reporton 11-24-2024 EGD Report [facility] Medical Records Department [address] [place] [address] EGD Report MR#: [id number] Acct: [id number] Name: DENY BRONSON Rep #: [id number] : 1970 54 From: Kailash Gustafson DO PCP: Care Physician,No Primary Status:ADM IN Patient Name: Deny Bronson Procedure Date: 11/24/2024 1:49 PM Date of : 1970 Age: 54 Procedure: Upper GI endoscopy Indications: Iron deficiency anemia Providers: Kailash Gustafson DO Medicines: Monitored Anesthesia Care Patient Profile: This is a 54 year old male. Refer to note in patient chart for documentation of history and physical. Patient has symptoms of acute abdominal distention. Complications: No immediate complications. Procedure: Pre-Anesthesia Assessment: - Prior to the procedure, a History and Physical was performed, and patient medications and allergies were reviewed. The patient is competent. The risks and benefits of the procedure and the sedation options and risks were discussed with the patient. All questions were answered and informed consent was obtained. Patient identification and proposed procedure were verified by the physician. Mental Status Examination: alert and oriented. Prophylactic Antibiotics: The patient does not require prophylactic antibiotics. Prior Anticoagulants: The patient has taken heparin, last dose was 1 day prior to procedure. ASA Grade Assessment: II - A patient with mild systemic disease. After reviewing the risks and benefits, the patient was deemed in satisfactory condition to undergo the procedure. The anesthesia plan was to use monitored anesthesia care (MAC). Immediately prior to administration of medications, the patient was re-assessed for adequacy to receive sedatives. The heart rate, respiratory rate, oxygen saturations, blood pressure, adequacy of pulmonary ventilation, and response to care were monitored throughout the procedure. The physical status of the patient was re-assessed after the procedure. After obtaining informed consent, the endoscope was passed under direct vision. Throughout the procedure, the patient's blood pressure, pulse, and oxygen saturations were monitored continuously. The Colonoscope was introduced through the mouth, and advanced to the second part of duodenum. The Colonoscope was introduced through the mouth, and advanced to the fourth part of the duodenum. Small bowel enteroscopy was deemed necessary. The upper GI endoscopy was accomplished without difficulty. The patient tolerated the procedure well. Scope In: 2:02:23 PM Scope Out: 2:05:43 PM Total Procedure Duration Time 0 hours 3 minutes 20 seconds Findings: The examined esophagus was normal. Suspect gastroparesis due to absence of peristalsis, patient symptoms and retained gastric contents. A benign-appearing, intrinsic severe stenosis was found at the pylorus. This was traversed. Localized mild inflammation characterized by congestion (edema) was found in the duodenal bulb. Biopsies were taken with a cold forceps for histology. Verification of patient identification for the specimen was done. Estimated blood loss was minimal. Impression: - Normal esophagus. - Gastroparesis. - Gastric stenosis was found at the pylorus. - Duodenitis. Biopsied. Recommendation: - [facility]. - Resume previous diet. - Continue present medications. - Await pathology results. Procedure Code(s): --- Professional --- 95538, Small intestinal endoscopy, enteroscopy beyond second portion of duodenum, not including ileum; with biopsy, single or multiple CPT copyright 2021 [employer]. All rights reserved. The codes documented in this report are preliminary and upon deburr technician review may be revised to meet current compliance requirements. Kailash Gustafson DO 11/24/2024 2:37:39 PM This report has been signed electronically. Number of Addenda: 0 Note Initiated On: 11/24/2024 1:49 PM 11/24/24 1437 Date Kailash Gustafson DO Cosigner Signature: Date (if indicated) CC: No Primary Care Physician; Kailash Gustafson DO Date Dictated: 11/24/24 1349 Date Transcribed: Oncology Registrar: KARL Signed Normal [facility] Flex Sigmoidoscopy Reporton 11-24-2024 Flex Sigmoidoscopy Report [facility] Medical Records Department [address] [place] [address] Flex Sigmoidoscopy Report MR#: [id number] Acct: [id number] Name: DENY BRONSON Rep #: [id number] : 1970 54 From: Kailash Gustafson DO PCP: Care Physician,No Primary Status:ADM IN Patient Name: Deny Bronson Procedure Date: 11/24/2024 2:08 PM Date of : 1970 Age: 54 Procedure: Flexible Sigmoidoscopy Indications: Hematochezia Providers: Kailash Gustafson DO Medicines: Propofol per Anesthesia, Monitored Anesthesia Care Patient Profile: This is a 54 year old male. Refer to note in patient chart for documentation of history and physical. Patient has symptoms of acute abdominal distention. Complications: No immediate complications. Procedure: Pre-Anesthesia Assessment: - Prior to the procedure, a History and Physical was performed, and patient medications and allergies were reviewed. The patient is competent. The risks and benefits of the procedure and the sedation options and risks were discussed with the patient. All questions were answered and informed consent was obtained. Patient identification and proposed procedure were verified by the physician. Mental Status Examination: alert and oriented. Prophylactic Antibiotics: The patient does not require prophylactic antibiotics. Prior Anticoagulants: The patient has taken heparin, last dose was 1 day prior to procedure. ASA Grade Assessment: II - A patient with mild systemic disease. After reviewing the risks and benefits, the patient was deemed in satisfactory condition to undergo the procedure. The anesthesia plan was to use monitored anesthesia care (MAC). Immediately prior to administration of medications, the patient was re-assessed for adequacy to receive sedatives. The heart rate, respiratory rate, oxygen saturations, blood pressure, adequacy of pulmonary ventilation, and response to care were monitored throughout the procedure. The physical status of the patient was re-assessed after the procedure. After obtaining informed consent, the endoscope was passed under direct vision. Throughout the procedure, the patient's blood pressure, pulse, and oxygen saturations were monitored continuously. The Colonoscope was introduced through the anus and advanced to the ileo-rectal anastomosis. The flexible sigmoidoscopy was accomplished without difficulty. The patient tolerated the procedure well. No bowel preparation was given prior to the procedure. The quality of visualization was fair. Scope In: 2:10:09 PM Scope Out: 2:15:32 PM Total Procedure Duration Time 0 hours 5 minutes 23 seconds Findings: The perianal and digital rectal examinations were normal. Multiple 5 mm subepithelial nodules were found in the rectum with bleeding stigmata. Biopsies were taken with a cold forceps for histology. Verification of patient identification for the specimen was done. Estimated blood loss was minimal. Impression: - Subepithelial nodule in the rectum.This is likely the site of blood lossl Biopsied. Procedure Code(s): --- Professional --- 47602, Sigmoidoscopy, flexible; with biopsy, single or multiple CPT copyright 2021 [employer]. All rights reserved. The codes documented in this report are preliminary and upon deburr technician review may be revised to meet current compliance requirements. Kailash Gustafson DO 11/24/2024 2:49:09 PM This report has been signed electronically. Number of Addenda: 0 Note Initiated On: 11/24/2024 2:08 PM 11/24/24 1449 Date Kailash Zendejas Signature: Date (if indicated) CC: No Primary Care Physician; Kailash Gustafson DO Date Dictated: 11/24/24 1408 Date Transcribed: Oncology Registrar: KARL Signed Normal [facility] International normalized rat io (INR) calculationOrdered By: Kailash Gustafson on 11-24-2024 INR Coag (Bld) [Relative time] 1.2 {INR} [facility] Interpretation of serum or p lasma protein pattern by immunofixation (narrative resultOrdered By: Kailash Gustafson on 11-24-2024 Protein Fractions Immunofixation Francisco Javier [Interp] Not Observed g/dL Not Observed [facility] LDHon 11-24-2024 LDH 167 U/L Normal 87-241 [facility] Comment on above: Performed By: #### L 500.3400, L501.4020, L100.0100, M100.7900, L500.2500, L501.2450, L503.6005 #### [facility] [address] [place], [address] Lactate dehydrogenase (LDH) measurementOrdered By: Kailash Gustafson on 11-24-2024 LDH [Catalytic activity/Vol] 167 U/L 87-241 [facility] MR/POSTOP.ANEon 11-24-2024 MR/POSTOP.ANE [facility] Medical Records Department [address] [place] [address] Anesthesia Postop Eval I 11/24/24 1434 MR#: [id number] Acct: [id number] Name: BRONSONDENY LARSEN Shai Rep #: [id number] : 1970 54 From: Butch Moniqeu PCP: Care Physician,No Primary Status:ADM IN Y Race: C Location: [place] [address] Anesthesia: Postop Eval I Current Vital Signs Temperature: 97.5 F Pulse Rate: 90 Blood Pressure: 102/61 Respiratory Rate: 18 Pulse Ox: 97 Oxygen Delivery Method: Room Air Assessment Airway patent: Yes Spontaneous unlabored respirations: Yes Mental status: Asleep nausea: No Vomiting: No Anesthesia Complication: No Fluid Hydration Crystalloid volume administer (ml): 60 Total IV fluid infused: 60 Progress Note Anesthesia document: Postop Eval 1 completed: Yes 11/24/24 1435 Date Butch Blackigner Signature: Date CC: Signed Normal [facility] MR/[id number] 11-24-2024 [facility] Medical Records Department [address] [place] [address] Anesthesia Postop Eval II 11/24/24 1556 MR#: [id number] Acct: [id number] Name: DENY BRONSON Rep #: [id number] : 1970 54 From: Vinny Andres MD PCP: Care Physician,No Primary Status:ADM IN Y Race: C Location: [place] [address] Anesthesia Postop Eval I Sum Postop Eval Completion status Anesthesia document: Postop Eval 1 completed: Yes Anesthesia Postop Eval I Summary Anesthesia Postop Eval I Summary: Anesthesia Postop Eval I: Assessment Summary Airway patent Yes 11/24/24 14:35 [email or web address] Spontaneous unlabored Yes 11/24/24 14:35 [email or web address] respirations Mental status Asleep 11/24/24 14:35 [email or web address] nausea No 11/24/24 14:35 [email or web address] Vomiting No 11/24/24 14:35 [email or web address] Anesthesia Postop Eval I: Fluid Summary Crystalloid volume administer 60 11/24/24 14:35 [email or web address] (ml) Colloids volume administered ( ml) Blood Product volume administered (ml) Total IV fluid infused 60 11/24/24 14:35 [email or web address] Anesthesia Postop Eval I: Summary Notes Anesthesia Complication No 11/24/24 14:35 [email or web address] Anesthesia Complication Comment: Post-operative progress note Anesthesia: Postop Eval II Evaluation Mental status: Awake Pain Level: 0 nausea: No Vomiting: No 11/24/24 1556 Date Vinny Blackignfuad Signature: Date CC: Signed [facility] MRCP Abdomen without Contras ton 11-24-2024 MRCP Abdomen without Contrast [facility] Imaging Services [address] [place], [place] [id number] MRCP Abdomen without Contrast MR#: [id number] Acct: [id number] Name: DENY BRONSON Rep #: [id number] : 1970 M 54 From: Deny Reyes MD PCP: Care Physician,No Primary Status: ADM IN Study: MRCP Abdomen without Contrast Date of Exam: Exam# [id number] Ordering Dr: Dinah Lazaro DO PROCEDURE: MRCP ABDOMEN WITHOUT CONTRAST REASON FOR EXAM: Question cholangiocarcinoma TECHNIQUE: MRCP without contrast. 3-D reformatted images generated by the technologist using MRI scanner software. COMPARISON: Correlation with CT of the abdomen and pelvis dated 11/22/2024. FINDINGS: Lower chest: Heart is enlarged. Bile ducts: Severely dilated intrahepatic ducts in the left hepatic lobe Gallbladder: Unremarkable. Pancreatic duct: Unremarkable. 3D Images: Nondiagnostic.. Liver: Liver is enlarged. There is a heterogeneous mass in the left hepatic lobe measuring 7.8 x 6.4 cm. Pancreas: Unremarkable. MRI/MRCP Abdomen without Contrast IMPRESSION: 1. Heterogeneous mass in the left hepatic lobe with severe left intrahepatic biliary dilatation suggestive of cholangiocarcinoma. Recommend MRI of the liver with contrast and delayed imaging for further evaluation. 2. Hepatomegaly 3. Cardiomegaly Reading Location: [facility] CC: Dr. Dinah Lazaro DO; No Primary Care Physician Oncology Registrar: Signed [facility] No Panel InformationOrdered By: Kailash Gustfason on 11-24-2024 Addendum Document Comment . [facility] Comment on above: Protein electrophore sis scan will follow via computer,mail, or superintendent board mill delivery. Partial Thromboplast Timeon 11-24-2024 aPTT Coag (Bld) [Time] 30.0 s Normal 24.1-36.2 [facility] Comment on above: Performed By: #### L 500.3400, L501.4020, L100.0100, M100.7900, L500.2500, L501.2450, L503.6005 #### [facility] [address] [place], [address] aPTT Coag (Bld) [Time] 30.9 s Normal 24.1-36.2 [facility] Comment on above: Performed By: #### L 500.3400, L501.4020, L100.0100, M100.7900, L500.2500, L501.2450, L503.6005 #### [facility] [address] [place], [address] Prothrombin Time w/INRon INR Coag (PPP) [Relative time] 1.2 {INR} Normal [facility] Comment on above: Performed By: #### L 500.3400, L501.4020, L100.0100, M100.7900, L500.2500, L501.2450, L503.6005 #### [facility] [address] [place], [address] PT Coag (PPP) [Time] 15.4 s High 11.7-14.9 [facility] Comment on above: Performed By: #### L 500.3400, L501.4020, L100.0100, M100.7900, L500.2500, L501.2450, L503.6005 #### [facility] [address] [place], [address] INR Coag (PPP) [Relative time] 1.2 {INR} Normal [facility] Comment on above: Performed By: #### L 500.3400, L501.4020, L100.0100, M100.7900, L500.2500, L501.2450, L503.6005 #### [facility] [address] [place], [address] PT Coag (PPP) [Time] 15.1 s High 11.7-14.9 [facility] Comment on above: Performed By: #### L 500.3400, L501.4020, L100.0100, M100.7900, L500.2500, L501.2450, L503.6005 #### [facility] [address] [place], [address] Prothrombin timeOrdered By: Kailash Gustafson on 11-24-2024 PT Coag (PPP) [Time] 15.4 s High 11.7-14.9 [facility] Serum DNA double strand anti body assay (units/volume)Ordered By: Kailash Gustafson on 11-24-2024 DNA double strand Ab Qn (S) 1 [IU]/mL 0-9 [facility] Comment on above: Negative <5 Equivoca l 5 - 9 Positive >9 Serum Scl-70 antibody assay (units/volume)Ordered By: Kailash Gustafson on 11-24-2024 SCL-70 extractable nuclear Ab Qn (S) 0.3 AI 0.0-0.9 [facility] Serum classic neutrophil cyt oplasmic antibody assay (units/volume)Ordered By: Kailash Gustafson on 11-24-2024 Neutrophil cytoplasmic Ab.classic Qn (S) <1:20 titer Neg:<1:20 [facility] Serum mitochondria antibody detectionOrdered By: Kailash Gustafson on 11-24-2024 Mitochondria Ab Ql (S) <20.0 Units 0.0-20.0 [facility] Comment on above: Negative 0.0 - 20.0 Equivocal 20.1 - 24.9 Positive >24.9Mitochondrial (M2) Antibodies are found in 90-96% ofpatients with primary biliary cirrhosis.Performed at: [facility] [address] [id number] Director: Sal Linton PhD, Phone: [phone] Serum or plasma IgA measurem ent (mass/volume)Ordered By: Kailash Gustafson on 11-24-2024 IgA [Mass/Vol] 607 mg/dL High 90-386 [facility] Serum or plasma IgG measurem ent (mass/volume)Ordered By: Kailash Gustafson on 11-24-2024 IgG [Mass/Vol] 3414 mg/dL High 603-1613 [facility] Serum or plasma actin IgG an tibody assay (units/volume)Ordered By: Kailash Gustafson on 11-24-2024 Actin IgG Qn 17 Units 0-19 [facility] Comment on above: Negative 0 - 19 Weak positive 20 - 30 Moderate to strong positive >30 Actin Antibodies are found in 52-85% of patients with autoimmune hepatitis or chronic active hepatitis and in 22% of patients with primary biliary cirrhosis.Performed at: [facility] [id number] Director: Sal Linton PhD, Phone: [phone] Serum or plasma alpha 1 glob ulin measurement by electrophoresis (mass/volume)Ordered By: Kailash Gustafson on 11-24-2024 Alpha 1 globulin Elph [Mass/Vol] 0.4 g/dL 0.0-0.4 [facility] Alpha 1 globulin Elph [Mass/Vol] 0.7 g/dL 0.4-1.0 [facility] Serum or plasma beta globuli n measurement by electrophoresis (mass/volume)Ordered By: Kailash Gustafson on 11-24-2024 Beta globulin Elph [Mass/Vol] 1.3 g/dL 0.7-1.3 [facility] Serum or plasma carcinoembry onic antigen measurement (mass/volume)Ordered By: Kailash Gustafson on 11-24-2024 Carcinoembryonic Ag [Mass/Vol] 3.4 ng/mL 0.0-4.7 [facility] Comment on above: Nonsmokers <3.9 Smok ers <5.6[employer] Electrochemiluminescence Immunoassay(ECLIA)Values obtained with different assay methods or kitscannot be used interchangeably. Results cannot beinterpreted as absolute evidence of the presence orabsence of malignant disease. Serum or plasma gamma globul in measurement by electrophoresis (mass/volume)Ordered By: Kailash Gustafson on 11-24-2024 Gamma globulin Elph [Mass/Vol] 3.2 g/dL High 0.4-1.8 [facility] Serum or plasma immunoelectr ophoresis interpretation (nominal result)Ordered By: Kailash Gustafson on 11-24-2024 Interpretation IEP [Interp] Comment . [facility] Comment on above: No monoclonality det ected. Serum or plasma protein bernard urement (mass/volume)Ordered By: Kailash Gustafson on 11-24-2024 Protein [Mass/Vol] 7.9 g/dL 6.0-8.5 [facility] Serum perinuclear neutrophil cytoplasmic antibody titer by immunofluorescenceOrdered By: Kailash Gustafson on 11-24-2024 Neutrophil cytoplasmic Ab.perinuclear IF (S) [Titer] <1:20 titer Neg:<1:20 [facility] Comment on above: The presence of posi tive fluorescence exhibiting P-ANCA orC-ANCA patterns alone is not specific for the diagnosis ofWegener's Granulomatosis (WG) or microscopic polyangiitis.Decisions about treatment should not be based solely onANCA IFA results. The International ANCA Group Consensusrecommends follow up testing of positive sera with both AR-3 and MPO-ANCA enzyme immunoassays. As many as 5% serumsamples are positive only by EIA. Ref. AM J Clin Sqozpw6793;111:507-513. Surgery Specimen Level [place] 11-24-2024 Surgery Specimen Level IV Patient Age/Sex Location Account Attending Physician DENY BRONSON 54/M [facility] [id number] Dr. Salena Matthews MD Specimen: [id number] Received: 11/24/24 Status: SILVERShai Gaviota Num: [id number] Spec Type: EGD BIOPSY Subm Dr: Kailash Gustafson DO HEADER OPERATION: EGD with biopsy, flex sig with biopsy PRE-OP DIAGNOSIS: Liver mass, acute GI bleeding, dyspnea on exertion, fatigue, lower extremity edema TISSUE SUBMITTED: A- Duodenum biopsy, B- (colon) Anastamosis biopsy MICROSCOPIC DIAGNOSIS A. Duodenum, biopsy: Fragments of duodenal mucosa with mild Ernst's gland hyperplasia. B. Colon anastomosis, biopsy: Fragments of colonic mucosa with extensive ulceration, acute and chronic inflammation, granulation tissue reaction and reactive epithelial changes. 11/26/2024 MICROSCOPIC DESCRIPTION Slides are reviewed. GROSS DESCRIPTION A. Received in fixative is one container labeled with the patient's name and designated Duodenum biopsy. The specimen consists of multiple irregular fragments of light jesus soft tissue that in aggregate measure 1.1 x 0.2 x 0.2 cm. The specimen is totally submitted in one cassette. B. Received in fixative is one container labeled with the patient's name and designated Anastomosis biopsy. The specimen consists of multiple irregular fragments of light jesus soft tissue that in aggregate measure 2.2 x 0.3 x 0.2 cm. The specimen is totally submitted in one cassette. 11/25/2024 TC:2 [facility]:[id number] Patient Age/Sex Location Account Attending Physician DENY BRONSON 54/M [facility] [id number] Dr. Salena Matthews MD Signed (signature on file) Dr. Rick Penny MD 11/26/24 1215 Normal [facility] Comment on above: Performed By: #### P SUIV ####[facility] [address] [place], [address] Basic Metabolic Profile (BMP )on 11-23-2024 BUN Normal 7-18 [facility] Comment on above: Result Comment: CANC EL PER OM Performed By: #### L 500.3400, L501.4020, L100.0100, M100.7900, L500.2500, L501.2450, L503.6005 #### [facility] [address] [place], [address] BUN/CRE Normal 10-20 [facility] Comment on above: Result Comment: CANC EL PER OM Performed By: #### L 500.3400, L501.4020, L100.0100, M100.7900, L500.2500, L501.2450, L503.6005 #### [facility] [address] [place], [address] CA,Total Normal 8.5-10.1 [facility] Comment on above: Result Comment: CANC EL PER OM Performed By: #### L 500.3400, L501.4020, L100.0100, M100.7900, L500.2500, L501.2450, L503.6005 #### [facility] [address] [place], [address] CL Normal 98-107 [facility] Comment on above: Result Comment: CANC EL PER OM Performed By: #### L 500.3400, L501.4020, L100.0100, M100.7900, L500.2500, L501.2450, L503.6005 #### [facility] [address] [place], [address] CO2 Normal 21.0-32.0 [facility] Comment on above: Result Comment: CANC EL PER OM Performed By: #### L 500.3400, L501.4020, L100.0100, M100.7900, L500.2500, L501.2450, L503.6005 #### [facility] [address] [place], [address] CREAT,SERUM Normal 0.70-1.30 [facility] Comment on above: Result Comment: CANC EL PER OM Performed By: #### L 500.3400, L501.4020, L100.0100, M100.7900, L500.2500, L501.2450, L503.6005 #### [facility] [address] [place], [address] EST GFR Normal >60 [facility] Comment on above: Result Comment: CANC EL PER OM Performed By: #### L 500.3400, L501.4020, L100.0100, M100.7900, L500.2500, L501.2450, L503.6005 #### [facility] [address] [place], [address] EST GFR - AA Normal >60 [facility] Comment on above: Result Comment: CANC EL PER OM Performed By: #### L 500.3400, L501.4020, L100.0100, M100.7900, L500.2500, L501.2450, L503.6005 #### [facility] [address] [place], [address] GAP Normal 5-15 [facility] Comment on above: Result Comment: CANC EL PER OM Performed By: #### L 500.3400, L501.4020, L100.0100, M100.7900, L500.2500, L501.2450, L503.6005 #### [facility] [address] [place], [address] GLU Normal 74-106 [facility] Comment on above: Result Comment: CANC EL PER OM Performed By: #### L 500.3400, L501.4020, L100.0100, M100.7900, L500.2500, L501.2450, L503.6005 #### [facility] [address] [place], [address] Potassium Normal 3.5-5.1 [facility] Comment on above: Result Comment: CANC EL PER OM Performed By: #### L 500.3400, L501.4020, L100.0100, M100.7900, L500.2500, L501.2450, L503.6005 #### [facility] [address] [place], [address] Basic Metabolic Profile (BMP) Normal 136-145 [facility] Comment on above: Result Comment: CANC EL PER OM Performed By: #### L 500.3400, L501.4020, L100.0100, M100.7900, L500.2500, L501.2450, L503.6005 #### [facility] [address] [place], [address] CBC W/Diff, Automatedon 02- Absolute Lymph 0.99 X10 3/uL Normal 0.83-4.51 [facility] Comment on above: Performed By: #### L 500.3400, L501.4020, L100.0100, M100.7900, L500.2500, L501.2450, L503.6005 #### [facility] [address] [place], [address] Absolute Neut 6.9 X10 3/uL Normal 2.0-7.7 [facility] Comment on above: Performed By: #### L 500.3400, L501.4020, L100.0100, M100.7900, L500.2500, L501.2450, L503.6005 #### [facility] [address] [place], [address] Basophils/100 WBC (Bld) 0.8 % Normal 0-[address] [facility] Comment on above: Performed By: #### L 500.3400, L501.4020, L100.0100, M100.7900, L500.2500, L501.2450, L503.6005 #### [facility] [address] [place], [address] Eosinophils/100 WBC (Bld) 4.9 % Normal 0-5 [facility] Comment on above: Performed By: #### L 500.3400, L501.4020, L100.0100, M100.7900, L500.2500, L501.2450, L503.6005 #### [facility] [address] [facility] [place], [address] Erythrocyte distribution width (RBC) [Ratio] 21.5 % High 11.6-14.6 [facility] Comment on above: Performed By: #### L 500.3400, L501.4020, L100.0100, M100.7900, L500.2500, L501.2450, L503.6005 #### [facility] [address] [place], [address] Hematocrit (Bld) [Volume fraction] 24.0 % Low 40-54 [facility] Comment on above: Performed By: #### L 500.3400, L501.4020, L100.0100, M100.7900, L500.2500, L501.2450, L503.6005 #### [facility] [address] [place], [address] Hemoglobin (Bld) [Mass/Vol] 6.8 g/dL Low 13.0-16.5 [facility] Comment on above: Performed By: #### L 500.3400, L501.4020, L100.0100, M100.7900, L500.2500, L501.2450, L503.6005 #### [facility] [address] [place], [address] IG% 0.200 Normal 0.0-0.9 [facility] Comment on above: Result Comment: IG% - Immature Granulocytes (promyelocytes, myelocytes and metamyelocytes) > 1% indicates that a LEFT SHIFT is Present. Performed By: #### L 500.3400, L501.4020, L100.0100, M100.7900, L500.2500, L501.2450, L503.6005 #### [facility] [address] [place], [address] Lymphocytes/100 WBC (Bld) 10.6 % Low 19-41 [facility] Comment on above: Performed By: #### L 500.3400, L501.4020, L100.0100, M100.7900, L500.2500, L501.2450, L503.6005 #### [facility] [address] [place], [address] MCH (RBC) [Entitic mass] 20.3 pg Low 27.0-32.0 [facility] Comment on above: Performed By: #### L 500.3400, L501.4020, L100.0100, M100.7900, L500.2500, L501.2450, L503.6005 #### [facility] [address] [place], [address] MCHC (RBC) [Mass/Vol] 28.3 g/dL Low 32-36 [facility] Comment on above: Performed By: #### L 500.3400, L501.4020, L100.0100, M100.7900, L500.2500, L501.2450, L503.6005 #### [facility] [address] [place], [address] MCV (RBC) [Entitic vol] 71.6 fL Low 80-[address] [facility] Comment on above: Performed By: #### L 500.3400, L501.4020, L100.0100, M100.7900, L500.2500, L501.2450, L503.6005 #### [facility] [address] [place], [address] Monocytes/100 WBC (Bld) 9.7 % Normal 0-[address] [facility] Comment on above: Performed By: #### L 500.3400, L501.4020, L100.0100, M100.7900, L500.2500, L501.2450, L503.6005 #### [facility] [address] [place], [address] Neutrophils/100 WBC (Bld) 73.8 % High 47-70 [facility] Comment on above: Performed By: #### L 500.3400, L501.4020, L100.0100, M100.7900, L500.2500, L501.2450, L503.6005 #### [facility] [address] [place], [address] Nucleated RBC (Bld) [#/Vol] 0 10*3/uL Normal 0-5 [facility] Comment on above: Performed By: #### L 500.3400, L501.4020, L100.0100, M100.7900, L500.2500, L501.2450, L503.6005 #### [facility] [address] [place], [address] Platelet mean volume (Bld) [Entitic vol] 8.5 fL Normal 6.2-12.0 [facility] Comment on above: Performed By: #### L 500.3400, L501.4020, L100.0100, M100.7900, L500.2500, L501.2450, L503.6005 #### [facility] [address] [place], [address] Platelets (Bld) [#/Vol] 295 10*3/uL Normal 150-450 [facility] Comment on above: Performed By: #### L 500.3400, L501.4020, L100.0100, M100.7900, L500.2500, L501.2450, L503.6005 #### [facility] [address] [place], [address] RBC (Bld) [#/Vol] 3.35 10*6/uL Low 4.6-6.2 [facility] Comment on above: Performed By: #### L 500.3400, L501.4020, L100.0100, M100.7900, L500.2500, L501.2450, L503.6005 #### [facility] [address] [place], [address] RDW SD 55.9 fl High 35.1-43.9 [facility] Comment on above: Performed By: #### L 500.3400, L501.4020, L100.0100, M100.7900, L500.2500, L501.2450, L503.6005 #### [facility] [address] [place], [address] WBC (Bld) [#/Vol] 9.3 10*3/uL Normal 4.4-11.0 [facility] Comment on above: Performed By: #### L 500.3400, L501.4020, L100.0100, M100.7900, L500.2500, L501.2450, L503.6005 #### [facility] [address] [place], [address] Comprehensive Metabolic Prof ilon 11-23-2024 Albumin [Mass/Vol] 2.0 g/dL Low 3.2-5.0 [facility] Comment on above: Performed By: #### L 500.3400, L501.4020, L100.0100, M100.7900, L500.2500, L501.2450, L503.6005 #### [facility] [address] [place], [address] Albumin/Globulin [Mass ratio] 0.4 {ratio} Low 0.9-2.4 [facility] Comment on above: Performed By: #### L 500.3400, L501.4020, L100.0100, M100.7900, L500.2500, L501.2450, L503.6005 #### [facility] [address] [place], [address] ALK P 586 U/L High 45-117 [facility] Comment on above: Performed By: #### L 500.3400, L501.4020, L100.0100, M100.7900, L500.2500, L501.2450, L503.6005 #### [facility] [address] [place], [address] ALT [Catalytic activity/Vol] 26 U/L Normal 16-61 [facility] Comment on above: Performed By: #### L 500.3400, L501.4020, L100.0100, M100.7900, L500.2500, L501.2450, L503.6005 #### [facility] [address] [place], [address] AST [Catalytic activity/Vol] 39 U/L High 15-37 [facility] Comment on above: Performed By: #### L 500.3400, L501.4020, L100.0100, M100.7900, L500.2500, L501.2450, L503.6005 #### [facility] [address] [place], [address] Bilirubin [Mass/Vol] 1.20 mg/dL High 0.20-1.00 [facility] Comment on above: Result Comment: For patients on eltrombopag therapy, use of Dimension [place] TBIL is not recommended. Performed By: #### L 500.3400, L501.4020, L100.0100, M100.7900, L500.2500, L501.2450, L503.6005 #### [facility] [address] [place], [address] BUN/CRE 14.7 RATIO Normal 10-20 [facility] Comment on above: Performed By: #### L 500.3400, L501.4020, L100.0100, M100.7900, L500.2500, L501.2450, L503.6005 #### [facility] [address] [place], [address] CA,Total 7.7 mg/dL Low 8.5-10.1 [facility] Comment on above: Performed By: #### L 500.3400, L501.4020, L100.0100, M100.7900, L500.2500, L501.2450, L503.6005 #### [facility] [address] [place], [address] Chloride [Moles/Vol] 108 mmol/L High 98-107 [facility] Comment on above: Performed By: #### L 500.3400, L501.4020, L100.0100, M100.7900, L500.2500, L501.2450, L503.6005 #### [facility] [address] [place], [address] CO2 [Moles/Vol] 22.0 mmol/L Normal 21.0-32.0 [facility] Comment on above: Performed By: #### L 500.3400, L501.4020, L100.0100, M100.7900, L500.2500, L501.2450, L503.6005 #### [facility] [address] [place], [address] Creatinine [Mass/Vol] 0.82 mg/dL Normal 0.70-1.30 [facility] Comment on above: Result Comment: The validity of the calculated GFR GFRAA in patients over 70 years has not been determined. Clinical correlation is essential. Performed By: #### L 500.3400, L501.4020, L100.0100, M100.7900, L500.2500, L501.2450, L503.6005 #### [facility] [address] [place], [address] ECRCL 123.09 ml/min Normal [facility] Comment on above: Performed By: #### L 500.3400, L501.4020, L100.0100, M100.7900, L500.2500, L501.2450, L503.6005 #### [facility] [address] [place], [address] EST GFR - AA 126 mL/min Normal >60 [facility] Comment on above: Result Comment: Afri can Mexican GFR Calc Performed By: #### L 500.3400, L501.4020, L100.0100, M100.7900, L500.2500, L501.2450, L503.6005 #### [facility] [address] [place], [address] GAP 7 Normal 5-15 [facility] Comment on above: Performed By: #### L 500.3400, L501.4020, L100.0100, M100.7900, L500.2500, L501.2450, L503.6005 #### [facility] [facility] [address] [place], [address] GFR/1.73 sq M.predicted among non-blacks MDRD (S/P/Bld) [Vol rate/Area] 104 mL/min/{1.73_m2} Normal >60 [facility] Comment on above: Result Comment: Non- GFR Calc Performed By: #### L 500.3400, L501.4020, L100.0100, M100.7900, L500.2500, L501.2450, L503.6005 #### [facility] [address] [place], [address] Globulin (S) [Mass/Vol] 5.5 g/dL High 2.2-4.2 [facility] Comment on above: Performed By: #### L 500.3400, L501.4020, L100.0100, M100.7900, L500.2500, L501.2450, L503.6005 #### [facility] [address] [place], [address] Glucose [Mass/Vol] 110 mg/dL High 74-106 [facility] Comment on above: Result Comment: Fast ing Glucose result from 100 to 125 mg/dL suggests IMPAIRED HOMEOSTASIS per A.D.A. criteria. Performed By: #### L 500.3400, L501.4020, L100.0100, M100.7900, L500.2500, L501.2450, L503.6005 #### [facility] [address] [place], [address] Potassium [Moles/Vol] 3.2 mmol/L Low 3.5-5.1 [facility] Comment on above: Performed By: #### L 500.3400, L501.4020, L100.0100, M100.7900, L500.2500, L501.2450, L503.6005 #### [facility] [address] [place], [address] Sodium [Moles/Vol] 136 mmol/L Normal 136-145 [facility] Comment on above: Performed By: #### L 500.3400, L501.4020, L100.0100, M100.7900, L500.2500, L501.2450, L503.6005 #### [facility] [address] [place], [address] T PROT 7.5 g/dL Normal 6.4-8.2 [facility] Comment on above: Performed By: #### L 500.3400, L501.4020, L100.0100, M100.7900, L500.2500, L501.2450, L503.6005 #### [facility] [address] [place], [address] Urea nitrogen [Mass/Vol] 12 mg/dL Normal 7-18 [facility] Comment on above: Performed By: #### L 500.3400, L501.4020, L100.0100, M100.7900, L500.2500, L501.2450, L503.6005 #### [facility] [address] [facility] [place], [address] HH, Hemoglobin AND Hematocri ton 11-23-2024 Hematocrit (Bld) [Volume fraction] 27.1 % Low 40-54 [facility] Comment on above: Performed By: #### L 500.3400, L501.4020, L100.0100, M100.7900, L500.2500, L501.2450, L503.6005 #### [facility] [address] [place], [address] Hemoglobin (Bld) [Mass/Vol] 7.9 g/dL Low 13.0-16.5 [facility] Comment on above: Performed By: #### L 500.3400, L501.4020, L100.0100, M100.7900, L500.2500, L501.2450, L503.6005 #### [facility] [address] [place], [address] Hematocrit (Bld) [Volume fraction] 26.9 % Low 40-54 [facility] Comment on above: Performed By: #### L 500.3400, L501.4020, L100.0100, M100.7900, L500.2500, L501.2450, L503.6005 #### [facility] [address] [place], [address] Hemoglobin (Bld) [Mass/Vol] 8.1 g/dL Low 13.0-16.5 [facility] Comment on above: Performed By: #### L 500.3400, L501.4020, L100.0100, M100.7900, L500.2500, L501.2450, L503.6005 #### [facility] [address] [facility] [place], [address] MR/CON.PCM.GIon 11-23-2024 MR/CON.PCM.GI [facility] Medical Records Department [address] [place] [address] Consultation - GI 11/23/24 1344 MR#: [id number] Acct: [id number] Name: DENY BRONSON Rep #: [id number] : 1970 54 From: Kailash Gustafson DO PCP: Care Physician,No Primary Status:ADM IN Location: [place] [address] HPI Consult Data Date of Consult: 11/23/24 HPI Narrative Reason for Consultation: Anemia and abnormal imaging HPI Narrative: DENY BRONSON, is a 54 M who presented to the emergency department [facility] on 11/22/2024 with a chief complaint of abnormal labs. The patient got a call from [facility] informing him to go to the emergency department due to a hemoglobin of 5.7. The patient indicates he does have blood in his stool but this is chronic secondary to his ulcerative colitis. He is previous total colectomy and only has small bowel. He states he has chronic diarrhea. He states recently he is lost a significant amount of weight and is also developed swelling in his lower extremities over the past several months. He has a known history of bicuspid aortic valve with a replacement and history of Churg-Geronimo disease. He states he has had significant fatigue and decreased exertional tolerance over the past several months. Has had no fever or chills, no nausea or vomiting. He does complain of some shortness of breath with exertion. CBC showed a microcytic anemia with a hemoglobin of 5.8 and an MCV of 70. Platelet count was normal. Coags were unremarkable. Chemistry panel was unremarkable. Bilirubin was 1.3 with a direct of 0.87 and alk phos of 693. His lipase was 26. His BNP was 530. UA is unremarkable for any acute findings. A CTA of his chest was performed and showed no acute pulmonary emboli within the main pulmonary arteries, dilation of the main pulmonary trunk with severe cardiomegaly and dilation of the bilateral distal pulmonary arteries with enlarged mediastinal lymph nodes consistent with history of granulomatosis with polyangiitis. CT of the abdomen pelvis showed previous colectomy with an ileoanal pouch, intramural gas with wall thickening concerning for pneumatosis and necrosis of the anastomosis, bowel wall thickening with adjacent ascites that initially was concerning for bowel perforation, ill-defined hypodensities in the left hepatic lobe concerning for cholangiocarcinoma and diffuse retroperitoneal lymphadenopathy consistent with the patient's history of granulomatosis with polyangiitis. EKG shows rate controlled atrial fibrillation with no ST-T wave changes concerning for acute ischemia. The emergency department physician discussed the case with general surgery. She looked at the CT was overcalled and said there was no surgical intervention was needed however GI evaluation was needed. [facility] Medical History Ulcerative colitis Nonrheumatic aortic (valve) stenosis Bicuspid aortic valve Heat exhaustion Hypokalemia Acute kidney injury Chest pain, unspecified UTI (urinary tract infection) Asthma Churg-Geronimo syndrome Home Medications ???Medication ???Instructions ???Recorded ???Last Taken ???Type guaifenesin 1,200 mg tablet, 1,200 mg PO DAILY 11/22/24 5 History extended release 12 hr (Mucinex) ivermectin 3 mg tablet 3 mg PO DAILY 11/22/24 11/22/24 Hi story Allergy/AdvReac Type Severity Reaction Status Date / Time acetaminophen Allergy Mild Itching Verified 11/24/24 13:37 Penicillins (PCN) Allergy PT UNSURE Verified 11/24/24 13:37 OF REACTION Family History Other Heart disease Surgical History Hx laparoscopic cholecystectomy History of colectomy History of right and left heart catheterization (LHC) ( 07/12/01) History of aortic valve replacement with bioprosthetic valve Social History Smoking Status: Never smoker alcohol intake: current details: occasional substance use type: does not use ROS Constitutional Constitutional: Denies fatigue, fever(s), poor appetite, weight gain or weight loss Gastrointestinal Gastrointestinal: Denies belching, bloating, change in bowel habits, change in stool character, chewing difficulty, coffee ground emesis, constipation, cramping, diarrhea, dyspepsia, dysphagia, early satiety, excessive flatus, fecal incontinence, heartburn, hematemesis, hematochezia, hemorrhoids, loose stools, melena, nausea, odynophagia, rectal bleeding, tenesmus, vomiting or weight changes Physical Exam Const alert, oriented x3, no apparent distress and healthy appearing General Appearance: cooperative GI normal to inspection, nondistended, normoactive bowel sounds, (more content not included)... Normal [facility] Magnesiumon 11-23-2024 Magnesium [Mass/Vol] 1.5 mg/dL Low 1.6-2.6 [facility] Comment on above: Performed By: #### L 500.3400, L501.4020, L100.0100, M100.7900, L500.2500, L501.2450, L503.6005 #### [facility] [address] [place], [place], [address] Phosphoruson 11-23-2024 Phosphate [Mass/Vol] 3.1 mg/dL Normal 2.5-4.9 [facility] Comment on above: Performed By: #### L 500.3400, L501.4020, L100.0100, M100.7900, L500.2500, L501.2450, L503.6005 #### [facility] [address] [place], [address] Serum or plasma thyroid stim ulating hormone (TSH) measurement (units/volume)Ordered By: Dinah Lazaro on 11-23-2024 TSH Qn 7.280 uIU/mL High 0.358-3.74 0 [facility] Thyroid Stim Hormone (TSH)on 11-23-2024 TSH 7.280 uIU/mL High 0.358-3.74 0 [facility] Comment on above: Performed By: #### L 500.3400, L501.4020, L100.0100, M100.7900, L500.2500, L501.2450, L503.6005 #### [facility] [address] [facility] [place], [address] 12 Lead EKGon 11-22-2024 12 Lead EKG [facility] Cardiovascular Services [address] [place] [address] 12 Lead EKG 11/22/24 1427 MR#: [id number] Acct: [id number] Name: DENY BRONSON Rep #: [id number] : 1970 54 From: Emerald Patino MD Attending Dr: Dr. John Love MD Status : ADM IN Ordering Dr: Deny Elias [employer]TER-C Date: 11/22/24 Location: [facility] Sex: M C Admitted: 11/22/24 Test Reason : GENERAL Blood Pressure : */* mmHG Vent. Rate : 92 BPM Atrial Rate : * BPM P-R Int : * ms QRS Dur : 124 ms QT Int : 404 ms P-R-T Axes : * -60 -5 degrees QTcB Int : 499 ms Atrial fibrillation Left anterior fascicular block Abnormal ECG Confirmed by SKYE HOOK, FRED ([id number]), publication editor KEVIN JARA ([id number]) on 11/24/2024 8:21:31 AM Referred By: Confirmed By: FRED PATINO MD 11/24/24 0821 Date Emerald Patino MD CC: [employer]TER-C Deny Elias; Dr. John Love MD; No Primary Care Physician Signed Normal [facility] Abdomen/Pelvis W IV Cont ONL Yon 11-22-2024 Abdomen/Pelvis W IV Cont ONLY [facility] Imaging Services [address] [place], [place] [address] Abdomen/Pelvis W IV Cont ONLY MR#: [id number] Acct: [id number] Name: DENY BRONSON Rep #: [id number] : 1970 M 54 From: Oliva Caba nd, MD PCP: Care Physician,No Primary Status: REG ER Study: Abdomen/Pelvis W IV Cont ONLY Date of Exam: Exam# [id number] Ordering Dr: Deny Elias [employer]-C PROCEDURE: ABDOMEN/PELVIS W IV CONT ONLY REASON FOR EXAM: 54-year-old male, abdominal pain, history of granulomatosis with polyangiitis, general fatigue, low hemoglobin, prior colectomy with J-pouch. TECHNIQUE: Abdomen and pelvis CT with intravenous contrast. No oral contrast. IV CONTRAST: Administered. COMPARISON: None. FINDINGS: Liver: Severe hepatomegaly with multifocal hypodensities within the left hepatic lobe. The major portal veins are patent and markedly enlarged. Mild right hepatic lobe biliary ductal dilation. Gallbladder: Prior cholecystectomy. Spleen: Mild splenomegaly. Pancreas: Mildly atrophic. Adrenals: Unremarkable. Kidneys: Bilateral renal hypodensities, likely cysts. No hydronephrosis or nephrolithiasis. Bladder: Mildly distended and unremarkable. Reproductive Organs: Dystrophic calcifications within the prostate gland. Bowel: Prior colectomy and ileo-anal pouch creation. Punctate intramural gas and wall thickening of the distal ileum just proximal to the anal sphincter. Ill-defined area of wall irregularity along the right lateral bowel wall with adjacent ascites (coronal image 48). Marked distention of the stomach and several anterior abdominal bowel loops, incompletely evaluated without the use of oral contrast. No large volume pneumoperitoneum. Lymph nodes: Diffuse retroperitoneal, periportal, mesenteric and bilateral pelvic lymphadenopathy. Vasculature: Ectasia of the infrarenal IVC. Bones: Bilateral pelvic bone islands. No aggressive osseous lesions. CT/Abdomen/Pelvis W IV Cont ONLY IMPRESSION: 1. Prior colectomy and ileo-anal pouch creation, with intramural gas and wall thickening of the distal ileum, most compatible with pneumatosis and necrosis of the anastomosis. 2. Ill-defined area of wall irregularity along the right lateral bowel with adjacent ascites, incompletely evaluated without the use of oral contrast. However findings are most concerning for bowel perforation. Correlation with prior abdominal imaging and clinical examination recommended. 3. Left hepatic lobe ill-defined hypodensities, most compatible with cholangiocarcinoma, however additional differential diagnoses include infection and autoimmune diseases. Correlation with prior abdominal imaging recommended. If none available, CT or MRI abdomen (liver protocol) may be obtained for further evaluation. 4. Diffuse retroperitoneal, periportal, mesenteric and pelvic lymphadenopathy, which may be secondary to patient's known history of granulomatosis with polyangiitis. Correlation with prior imaging recommended as neoplasm can not be excluded. One or more dose reduction techniques were used (e.g., Automated exposure control, adjustment of the mA and/or kV according to patient size, use of iterative reconstruction technique). Reading Location: [facility] CC: MARIA LUISA Elias; No Primary Care Physician Oncology Registrar: Signed Normal [facility] BNP (brain natriuretic pepti de measurement)Ordered By: Deny Elias on 11-22-2024 Natriuretic peptide B (Bld) [Mass/Vol] 503.1 pg/mL High 0-100 [facility] BNP,B-Type NATRIURETIC PEPTI Chung 11-22-2024 Natriuretic peptide B (Bld) [Mass/Vol] 503.1 pg/mL High 0-100 [facility] Comment on above: Performed By: #### L 500.3400, L501.4020, L100.0100, M100.7900, L500.2500, L501.2450, L503.6005 #### [facility] [address] [place], [address] BRCon 11-22-2024 Normal [facility] Comment on above: Result Comment: [id number] OP RC TRANSFUSED 11/22/24 1544 [id number] OP RC TRANSFUSED 11/22/24 1828 Performed By: #### L 500.3400, L501.4020, L100.0100, M100.7900, L500.2500, L501.2450, L503.6005 #### [facility] [address] [place], [address] RC Normal [facility] Comment on above: Result Comment: [id number] AP RC TRANSFUSED 11/23/24 0143 [id number] AP RC TRANSFUSED 11/22/24 2152 Performed By: #### B RC ####[facility] [address] [place], [address] Result Comment: [id number] AP RC TRANSFUSED 11/23/24 0815 Performed By: #### L 500.3400, L501.4020, L100.0100, M100.7900, L500.2500, L501.2450, L503.6005 #### [facility] [address] [place], [address] Basic Metabolic Profile (BMP )on 11-22-2024 BUN/CRE 13.7 RATIO Normal 10-20 [facility] Comment on above: Order Comment: 'TROP ' Serial specimen #1, #2 or #3: 1 Performed By: #### L 500.3400, L501.4020, L100.0100, M100.7900, L500.2500, L501.2450, L503.6005 #### [facility] [address] [place], [address] CA,Total 8.2 mg/dL Low 8.5-10.1 [facility] Comment on above: Order Comment: 'TROP ' Serial specimen #1, #2 or #3: 1 Performed By: #### L 500.3400, L501.4020, L100.0100, M100.7900, L500.2500, L501.2450, L503.6005 #### [facility] [address] [place], [address] Chloride [Moles/Vol] 106 mmol/L Normal 98-107 [facility] Comment on above: Order Comment: 'TROP ' Serial specimen #1, #2 or #3: 1 Performed By: #### L 500.3400, L501.4020, L100.0100, M100.7900, L500.2500, L501.2450, L503.6005 #### [facility] [address] [place], [address] CO2 [Moles/Vol] 24.0 mmol/L Normal 21.0-32.0 [facility] Comment on above: Order Comment: 'TROP ' Serial specimen #1, #2 or #3: 1 Performed By: #### L 500.3400, L501.4020, L100.0100, M100.7900, L500.2500, L501.2450, L503.6005 #### [facility] [address] [place], [address] Creatinine [Mass/Vol] 0.88 mg/dL Normal 0.70-1.30 [facility] Comment on above: Order Comment: 'TROP ' Serial specimen #1, #2 or #3: 1 Result Comment: The validity of the calculated GFR GFRAA in patients over 70 years has not been determined. Clinical correlation is essential. Performed By: #### L 500.3400, L501.4020, L100.0100, M100.7900, L500.2500, L501.2450, L503.6005 #### [facility] [address] [place], [address] ECRCL 124.23 ml/min Normal [facility] Comment on above: Order Comment: 'TROP ' Serial specimen #1, #2 or #3: 1 Performed By: #### L 500.3400, L501.4020, L100.0100, M100.7900, L500.2500, L501.2450, L503.6005 #### [facility] [address] [place], [address] EST GFR - AA 116 mL/min Normal >60 [facility] Comment on above: Order Comment: 'TROP ' Serial specimen #1, #2 or #3: 1 Result Comment: Afri can Mexican GFR Calc Performed By: #### L 500.3400, L501.4020, L100.0100, M100.7900, L500.2500, L501.2450, L503.6005 #### [facility] [address] [place], [address] GAP 6 Normal 5-15 [facility] Comment on above: Order Comment: 'TROP ' Serial specimen #1, #2 or #3: 1 Performed By: #### L 500.3400, L501.4020, L100.0100, M100.7900, L500.2500, L501.2450, L503.6005 #### [facility] [address] [place], [address] GFR/1.73 sq M.predicted among non-blacks MDRD (S/P/Bld) [Vol rate/Area] 96 mL/min/{1.73_m2} Normal >60 [facility] Comment on above: Order Comment: 'TROP ' Serial specimen #1, #2 or #3: 1 Result Comment: Non- GFR Calc Performed By: #### L 500.3400, L501.4020, L100.0100, M100.7900, L500.2500, L501.2450, L503.6005 #### [facility] [address] [place], [address] Glucose [Mass/Vol] 72 mg/dL Low 74-106 [facility] Comment on above: Order Comment: 'TROP ' Serial specimen #1, #2 or #3: 1 Performed By: #### L 500.3400, L501.4020, L100.0100, M100.7900, L500.2500, L501.2450, L503.6005 #### [facility] [address] [place], [address] Potassium [Moles/Vol] 3.5 mmol/L Normal 3.5-5.1 [facility] Comment on above: Order Comment: 'TROP ' Serial specimen #1, #2 or #3: 1 Performed By: #### L 500.3400, L501.4020, L100.0100, M100.7900, L500.2500, L501.2450, L503.6005 #### [facility] [address] [place], [address] Sodium [Moles/Vol] 136 mmol/L Normal 136-145 [facility] Comment on above: Order Comment: 'TROP ' Serial specimen #1, #2 or #3: 1 Performed By: #### L 500.3400, L501.4020, L100.0100, M100.7900, L500.2500, L501.2450, L503.6005 #### [facility] [address] [place], [address] Urea nitrogen [Mass/Vol] 12 mg/dL Normal 7-18 [facility] Comment on above: Order Comment: 'TROP ' Serial specimen #1, #2 or #3: 1 Performed By: #### L 500.3400, L501.4020, L100.0100, M100.7900, L500.2500, L501.2450, L503.6005 #### [facility] [address] [place], [address] Bilirubin Test strip Ql (U)O rdered By: Deny Elias on 11-22-2024 Bilirubin Ql (U) 1 mg/dL High Negative [facility] Comment on above: COLOR OF URINE MAY A FFECT DIPSTICK RESULTS. Bilirubin directOrdered By: Deny Elias on 11-22-2024 Bilirubin.direct [Mass/Vol] 0.87 mg/dL High 0.00-0.30 [facility] CTA Chest W/WO Contraston CTA Chest W/WO Contrast [facility] Imaging Services [address] [place], [place] [address] CTA Chest W/WO Contrast MR#: [id number] Acct: [id number] Name: DENY BRONSON Rep #: [id number] : 1970 M 54 From: Oliva Caba nd, MD PCP: Care Physician,No Primary Status: REG ER Study: CTA Chest W/WO Contrast Date of Exam: 11/22/24 Exam# [id number] Ordering Dr: Deny Elias [employer]ORTER-C PROCEDURE: CTA CHEST W/WO CONTRAST REASON FOR EXAM: 54-year-old male, shortness of breath, fatigue and low hemoglobin. History of prior aortic valve replacement and Churg-Geronimo syndrome. TECHNIQUE: CTA imaging of the chest with intravenous contrast. 3D reconstructions. CONTRAST: Administered. COMPARISON: None available. FINDINGS: Hardware: None. 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 No hilar or axillary lymphadenopathy. Heart: Severe cardiomegaly with trace pericardial fluid. Prior median sternotomy and aortic valve replacement. Minimal coronary artery calcifications. Dilation of the main pulmonary trunk measuring up to 4.3 cm. RV/LV Diameter Ratio: N/A Thoracic Aorta: No thoracic aortic aneurysm or dissection. Pulmonary Vessels: Visualization is limited by motion artifact. No evidence of acute pulmonary emboli through the major subsegmental branches. Most Proximal Level of Embolus (if embolus present): N/A Lungs and Airways: The central airways are patent. Visualization is limited by motion artifact. Low lung volumes bilaterally. Dilation of the bilateral distal pulmonary arteries. No large focal consolidation, pneumothorax or pleural effusion Bones: Mild pectus excavatum deformity. Chronic bilateral rib fracture deformities. CT/CTA Chest W/WO Contrast IMPRESSION: 1. No acute pulmonary embolism within the proximal pulmonary arteries. 2. Severe cardiomegaly. Dilation of the main pulmonary trunk, which can be seen with pulmonary artery hypertension. 3. 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 One or more dose reduction techniques were used (e.g., Automated exposure control, adjustment of the mA and/or kV according to patient size, use of iterative reconstruction technique). Reading Location: [id number] CC: MARIA LUISA Elias; No Primary Care Physician Oncology Registrar: Signed Normal [facility] Echo Completeon 11-22-[address] [facility] Cardiovascular Services [address] [place] [address] Echo Complete 11/24/24 1057 MR#: [id number] Acct: [id number] Name: DENY BRONSON Rep #: [id number] : 1970 54 From: Aniket Paniagua MD Attending Dr: Dr. John Love MD Status : ADM IN Ordering Dr: Dinah Lazaro DO Date: 11/22/24 Location: U Sex: M C Admitted: 11/22/24 Reason For Study Reason For Study: Procedure This was a 2D Doppler, Color Flow transthoracic echocardiogram. Exam performed portable in patient room. Left Ventricle Normal LV size. Severe concentric left ventricular hypertrophy. The left ventricular ejection fraction is 65 %. Stage 1 diastolic dysfunction. Right Ventricle Normal right ventricle. Atria There is severe biatrial dilatation. Bubble contrast study is negative for PFO/ASD. Mitral Valve Mild (1+) mitral valve insufficiency. Tricuspid Valve Mild tricuspid valve insufficiency. Right ventricular systolic pressure estimated to be 40 mmHg. Aortic Valve Moderate to severe calcification of the bioprosthetic aortic valve. Severe aortic valve stenosis. Mean peak gradient 55 mmHg. Moderate aortic valve regurgitation. Pulmonic Valve The pulmonic valve is not well visualized. Trivial pulmonic valve insufficiency. Great Vessels Mildly dilated aortic root. Pericardium/Pleural No pericardial effusion. Medication Performed a rapid injection of agitated mix of 9 cc saline and 1cc air to assess for atrial septal defect. MMode/2D Measurements Calculations LVIDd: 6.0 cm IVSd: 1.7 cm LVOT diam: 2.0 cm LVIDs: 3.3 cm LVPWd: 1.9 cm RVDd: 3.8 cm FS: 45.7 % LVOT area: 3.1 cm2 LAV(MOD-bp): 177.2 ml LVAd ap4: 48.3 cm2 SV(MOD-sp4): 113.7 ml LAV(MOD-bp) Indexed: 78.5 ml/m2 LVLd ap4: 9.8 cm SI(MOD-sp4): 50.4 ml/m2 LAV(MOD-sp2): 176.9 ml EDV(MOD-sp4): 197.3 ml LAV(MOD-sp4): 162.3 ml EDV(sp4-el): 203.0 ml LVAs ap4: 29.1 cm2 LVLs ap4: 8.5 cm ESV(MOD-sp4): 83.6 ml ESV(sp4-el): 84.7 ml EF(MOD-sp4): 57.6 % EF(sp4-el): 58.3 % SV(sp4-el): 118.4 ml LA A4 area: 42.7 cm2 LA dimension(2D): 5.7 cm RA A4 area: 43.7 cm2 Doppler Measurements Calculations Ao V2 max: 485.0 cm/sec AI max azeem: 510.3 cm/sec PA V2 max: 114.0 cm/sec Ao max P.2 mmHg AI max P.3 mmHg PA V2 mean: 82.7 cm/sec Ao V2 mean: 350.2 cm/sec AI dec slope: 434.4 cm/sec2 Ao mean P.7 mmHg AI P1/2t: 344.0 msec Ao V2 VTI: 113.8 cm PI end-d azeem: 134.9 cm/sec TR max azeem: 251.1 cm/sec TR max P.2 mmHg ECHO/Echo Complete Interpretation Summary Severe concentric left ventricular hypertrophy. The left ventricular ejection fraction is 65 %. Stage 1 diastolic dysfunction. There is severe biatrial dilatation. Mild (1+) mitral valve insufficiency. Mild tricuspid valve insufficiency. Right ventricular systolic pressure estimated to be 40 mmHg. Moderate to severe calcification of the bioprosthetic aortic valve. Severe aortic valve stenosis. Mean peak gradient 55 mmHg. Moderate aortic valve regurgitation. Mildly dilated aortic root. ___ Ordering Physician: Dinah Lazaro Referring Physician: LUCRETIA PCP Performed By: Estefany Quinones RCS 11/24/24 1422 Date Aniket Paniagua MD CC: Dr. Dinah Lazaro, ; Dr. John Love MD; No Primary Care Physician Date Dictated: 11/24/24 1057 Date Transcribed: 11/24/24 1422 Oncology Registrar: Signed Normal [facility] Emergency Department Summary on 11-22-[address] [facility] Medical Records Department [address] [place] [address] Emergency Department Summary 11/22/24 MR#: [id number] Acct: [id number] Name: DENY BRONSON Rep #: [id number] : 1970 54 From: Deny Elias UPPER LEATHER SORTER-C PCP: Care Physician,No Primary Status:ADM IN Location: [address] History of Present Illness Chief Complaint: Abn Labs Narrative Narrative: Patient is a 54-year-old male with history of leukemia, bicuspid aortic valve replacement, asthma who does not take any prescription drugs daily presenting to the [facility] apartment for multiple complaints. Patient did get called by [facility] to go to the [facility] department secondary to for a hemoglobin of 5.7. Patient states he does have blood in his stool but this is chronic secondary to ulcerative colitis. Patient states that he has bilateral leg swelling, his abdomen has been getting more swollen, he is more short of breath, and states he is just generalized fatigue. He does state that he does drink beer occasionally, however states he has no energy. Denies any fever chills nausea or vomiting. [facility] Medical History (Updated 11/22/24 @ 18:[address] Mark Isaacs, ) Nonrheumatic aortic (valve) stenosis Bicuspid aortic valve Heat exhaustion Hypokalemia Acute kidney injury Chest pain, unspecified Colitis UTI (urinary tract infection) Asthma Churg-Geronimo syndrome Home Medications ???Medication ???Instructions ???Recorded ???Last Taken ???Type guaifenesin 1,200 mg tablet, 1,200 mg PO DAILY 11/22/24 5 History extended release 12 hr (Mucinex) ivermectin 3 mg tablet 3 mg PO DAILY 11/22/24 11/22/24 Hi story Allergy/AdvReac Type Severity Reaction Status Date / Time acetaminophen Allergy Mild Itching Verified 11/22/24 13:48 Penicillins (PCN) Allergy PT UNSURE Verified 06/25/20 10:16 OF REACTION Family History (Updated 06/10/20 @ 08:51 by Khalida Blount) Other Heart disease Surgical History (Updated 06/10/20 @ 08:56 by Khalida Blount) Hx laparoscopic cholecystectomy History of colectomy History of right and left heart catheterization (LHC) ( 07/12/01) History of aortic valve replacement with bioprosthetic valve Social History (Updated 06/10/20 @ 08:51 by Khalida Blount) Smoking Status: Never smoker alcohol intake: current details: occasional substance use type: does not use ROS ROS ED ROS Narrative Constitutional: Negative for fever, chills, weight loss. Positive for weakness Eyes: Negative for vision loss, vision change, double vision ENT: Negative for any sore throat, ear pain, congestion Cardiovascular: Negative for any chest pain, tightness, palpitations Respiratory: Negative for any cough, sputum production, hemoptysis. Positive for dyspnea, dyspnea on exertion, orthopnea Gastrointestinal: Negative for any nausea, vomiting, diarrhea, constipation, blood in vomit. Positive for abdominal bloating, blood in stool : Negative for any urinary frequency, dysuria, retention, blood in urine Muscle skeletal: Negative for any neck pain, back pain Neurological: Negative for any headache, syncope. Positive for dizziness Skin: Negative for any rashes, itching, abrasions, lacerations Psychiatric: Negative for any depression, anxiety, stress, suicidal ideation, homicidal ideation Hematologic: Negative for any excessive bruising, easy bleeding EXAM Physical Exam Narrative Exam Narrative: Vital signs reviewed. Patient slightly tachycardic, the patient's heart rate is irregular, alert and orient x 4 HEET: Head normocephalic atraumatic, TMs clear bilaterally. Posterior pharynx is clear, dry mucous membranes. Nares clear bilaterally. Neck: Supple with no lymphadenopathy or tenderness. No signs of meningismus. Cardiac: Irregular rate positive for murmur, no gallops or rubs, equal peripheral pulses bilaterally. Respiratory: Lungs clear to auscultation bilaterally diminished lung sounds at the bases. No chest tenderness. Abdomen: Patient's abdomen slight distended, positive umbilical hernia that appears hard, this could be chronic. Hypoactive bowel sounds. No abdominal bruit or pulsatile masses. No hepatosplenomegaly Extremities: +3 pitting edema bilateral lower extremities, no signs of gross trauma or deformity. Active full range of motion of all extremities. Neuro: Cranial nerves II through XII intact, no focal neurological deficits. Skin: Clean dry and intact with no rash, purpura, petechiae, vesicles or pustules. Backs/flank: No CVA tenderness, no midline spinal tenderness, no deformity. Psych: Normal mood and affect. No SI, HI or acute psychosis. Rectal: Rectal exam was completed with female nurse grain miller helper Dayana. There was no gross bleeding, sherif blood, maroon-colored stool. Rectal vault was empty, patient did h (more content not included)... Normal [facility] H AND P Exam - Hospital[place] 11-22-2024 H&P Exam - Hospitalist [facility] Medical Records Department [address] [place] [address] H P Exam - Hospitalist 11/22/24 1829 MR#: [id number] Acct: [id number] Name: DENY BRONSON Rep #: [id number] : 1970 54 From: Dinah Lazaro DO PCP: Care Physician,No Primary Status:ADM IN Location: [address] HPI - General General Date of Admission: 11/22/24 Date of Service: 11/22/24 Chief Complaint: Abnormal lab HPI Narrative DENY BRONSON, is a 54 M who presented to the emergency department [facility] on 11/22/2024 with a chief complaint of abnormal labs. The patient got a call from [facility] informing him to go to the emergency department due to a hemoglobin of 5.7. The patient indicates he does have blood in his stool but this is chronic secondary to his ulcerative colitis. He is previous total colectomy and only has small bowel. He states he has chronic diarrhea. He states recently he is lost a significant amount of weight and is also developed swelling in his lower extremities over the past several months. He is somewhat of a poor historian and sounds like he has not followed up medically in some time. He has a known history of bicuspid aortic valve with a replacement and history of Churg-Geronimo disease. He states he has had significant fatigue and decreased exertional tolerance over the past several months. Has had no fever or chills, no nausea or vomiting. He does complain of some shortness of breath with exertion. Vital signs on presentation showed temperature of 96.9, heart rate 111, respiratory rate was 19, blood pressure was 104/66 and pulse ox was 100% on room air. CBC showed a microcytic anemia with a hemoglobin of 5.8 and an MCV of 70. Platelet count was normal. Coags were unremarkable. Chemistry panel was unremarkable. Bilirubin was 1.3 with a direct of 0.87 and alk phos of 693. His lipase was 26. His BNP was 530. UA is unremarkable for any acute findings. A CTA of his chest was performed and showed no acute pulmonary emboli within the main pulmonary arteries, dilation of the main pulmonary trunk with severe cardiomegaly and dilation of the bilateral distal pulmonary arteries with enlarged mediastinal lymph nodes consistent with history of granulomatosis with polyangiitis. CT of the abdomen pelvis showed previous colectomy with an ileoanal pouch, intramural gas with wall thickening concerning for pneumatosis and necrosis of the anastomosis, bowel wall thickening with adjacent ascites that initially was concerning for bowel perforation, ill-defined hypodensities in the left hepatic lobe concerning for cholangiocarcinoma and diffuse retroperitoneal lymphadenopathy consistent with the patient's history of granulomatosis with polyangiitis. EKG shows rate controlled atrial fibrillation with no ST-T wave changes concerning for acute ischemia. Given the findings on the CT of the abdomen pelvis, the emergency department physician discussed the case with Dr. Mayorga from general surgery. She was at the imaging and felt that the read on the CT was overcalled and no urgent or emergent surgical intervention was needed however GI evaluation was done [facility] Medical History Ulcerative colitis Nonrheumatic aortic (valve) stenosis Bicuspid aortic valve Heat exhaustion Hypokalemia Acute kidney injury Chest pain, unspecified UTI (urinary tract infection) Asthma Churg-Geronimo syndrome Home Medications ???Medication ???Instructions ???Recorded ???Last Taken ???Type guaifenesin 1,200 mg tablet, 1,200 mg PO DAILY 11/22/24 5 History extended release 12 hr (Mucinex) ivermectin 3 mg tablet 3 mg PO DAILY 11/22/24 11/22/24 Hi story Allergy/AdvReac Type Severity Reaction Status Date / Time acetaminophen Allergy Mild Itching Verified 11/22/24 13:48 Penicillins (PCN) Allergy PT UNSURE Verified 06/25/20 10:16 OF REACTION Family History Other Heart disease Surgical History Hx laparoscopic cholecystectomy History of colectomy History of right and left heart catheterization (LHC) ( 07/12/01) History of aortic valve replacement with bioprosthetic valve Social History Smoking Status: Never smoker alcohol intake: current details: occasional substance use type: does not use ROS Constitutional Constitutional: Reports change in weight, fatigue and weakness; Denies anorexia, chills, fever(s), malaise, night sweats or other Eyes Eyes: Denies blurry vision, change in eye color, change in vision, discharge from eye(s), double vision, erythema, eye pain, loss of vision or other ENT HEENT: Denies abnormal hearing, dysphagia, ear pain, epistaxis (more content not included)... Normal [facility] HH, Hemoglobin AND Hematocri ton 11-22-2024 Hematocrit (Bld) [Volume fraction] 22.7 % Low 40-54 [facility] Comment on above: Performed By: #### L 500.3400, L501.4020, L100.0100, M100.7900, L500.2500, L501.2450, L503.6005 #### [facility] [address] [place], [place], [id number] Hemoglobin (Bld) [Mass/Vol] 6.2 g/dL Low 13.0-16.5 [facility] Comment on above: Performed By: #### L 500.3400, L501.4020, L100.0100, M100.7900, L500.2500, L501.2450, L503.6005 #### [facility] [address] [place], [place], [id number] Influenza virus A and B and SARS-CoV-2 (COVID-19) and Respiratory syncytial virus RNAOrdered By: Deny Elias on 11-22-2024 SARS-CoV-2 (COVID-19) RNA ZANDER+probe Ql (Unsp spec) [facility] Ketones Test strip Ql (U)Ord ered By: Deny Elias on 11-22-2024 Ketones Ql (U) Negative Negative [facility] L501.4020on 11-22-2024 TROPONIN-I HS 18 pg/mL Normal 3.0-78.0 [facility] Comment on above: Order Comment: 'TROP ' Serial specimen #1, #2 or #3: 1 Result Comment: Ritika mtz Note: New Test Units and Gender Specific Reference Ranges. For more information see Policy Stat Procedure [place] High Sensitivity Troponin (TNIH) and attachments. Performed By: #### L 500.3400, L501.4020, L100.0100, M100.7900, L500.2500, L501.2450, L503.6005 #### [facility] [address] [place], [address] Lactic Acidon 11-22-2024 Lactate [Moles/Vol] 1.2 mmol/L Normal 0.4-1.9 [facility] Comment on above: Order Comment: Y Performed By: #### L 500.3400, L501.4020, L100.0100, M100.7900, L500.2500, L501.2450, L503.6005 #### [facility] [address] [place], [address] Lactic acid measurementOrder ed By: Deny Elias on 11-22-2024 Lactate [Moles/Vol] 1.2 mmol/L 0.4-2.0 [facility] Lipaseon 11-22-2024 Lipase [Catalytic activity/Vol] 26 U/L Low 73-393 [facility] Comment on above: Order Comment: 'TROP ' Serial specimen #1, #2 or #3: 1 Performed By: #### L 500.3400, L501.4020, L100.0100, M100.7900, L500.2500, L501.2450, L503.6005 #### [facility] [address] [place], [address] Lipase measurementOrdered By : Deny Elias on 11-22-2024 Lipase [Catalytic activity/Vol] 26 U/L Low 73-393 [facility] Liver Profileon 11-22-2024 Albumin [Mass/Vol] 2.1 g/dL Low 3.2-5.0 [facility] Comment on above: Order Comment: 'TROP ' Serial specimen #1, #2 or #3: 1 Performed By: #### L 500.3400, L501.4020, L100.0100, M100.7900, L500.2500, L501.2450, L503.6005 #### [facility] [address] [place], [address] ALK P 693 U/L High 45-117 [facility] Comment on above: Order Comment: 'TROP ' Serial specimen #1, #2 or #3: 1 Performed By: #### L 500.3400, L501.4020, L100.0100, M100.7900, L500.2500, L501.2450, L503.6005 #### [facility] [address] [place], [address] ALT [Catalytic activity/Vol] 34 U/L Normal 16-61 [facility] Comment on above: Order Comment: 'TROP ' Serial specimen #1, #2 or #3: 1 Performed By: #### L 500.3400, L501.4020, L100.0100, M100.7900, L500.2500, L501.2450, L503.6005 #### [facility] [address] [place], [address] AST [Catalytic activity/Vol] 49 U/L High 15-37 [facility] Comment on above: Order Comment: 'TROP ' Serial specimen #1, #2 or #3: 1 Performed By: #### L 500.3400, L501.4020, L100.0100, M100.7900, L500.2500, L501.2450, L503.6005 #### [facility] [address] [place], [address] Bilirubin [Mass/Vol] 1.30 mg/dL High 0.20-1.00 [facility] Comment on above: Order Comment: 'TROP ' Serial specimen #1, #2 or #3: 1 Result Comment: For patients on eltrombopag therapy, use of Dimension [place] TBIL is not recommended. Performed By: #### L 500.3400, L501.4020, L100.0100, M100.7900, L500.2500, L501.2450, L503.6005 #### [facility] [address] [place], [address] Bilirubin.direct [Mass/Vol] 0.87 mg/dL High 0.00-0.30 [facility] Comment on above: Order Comment: 'TROP ' Serial specimen #1, #2 or #3: 1 Performed By: #### L 500.3400, L501.4020, L100.0100, M100.7900, L500.2500, L501.2450, L503.6005 #### [facility] [address] [place], [address] Globulin (S) [Mass/Vol] 6.6 g/dL High 2.2-4.2 [facility] Comment on above: Order Comment: 'TROP ' Serial specimen #1, #2 or #3: 1 Performed By: #### L 500.3400, L501.4020, L100.0100, M100.7900, L500.2500, L501.2450, L503.6005 #### [facility] [address] [place], [address] T PROT 8.7 g/dL High 6.4-8.2 [facility] Comment on above: Order Comment: 'TROP ' Serial specimen #1, #2 or #3: 1 Performed By: #### L 500.3400, L501.4020, L100.0100, M100.7900, L500.2500, L501.2450, L503.6005 #### [facility] [address] [place], [place], [id number] M100.678on 11-22-2024 M100.678 SARS-CoV-2 (COVID 19 ) Negative INFLUENZA A Negative INFLUENZA B Negative RSV PCR Negative Normal [facility] Comment on above: Performed By: #### M 100.678, L400.0001 ####[facility] [id number] [facility] [place], [address] Microscopic analysis of urin e for red blood cells (RBC)Ordered By: Deny Elias on 11-22-2024 Microscopic analysis of urine for red blood cells (RBC) 0 SEEN /hpf 0-5 [facility] Mucus LM Ql (Urine sed)Order ed By: Deny Elias on 11-22-2024 Mucus Ql (Urine sed) 0 SEEN /hpf [facility] Nitrite Test strip Ql (U)Ord ered By: Deny Elias on 11-22-2024 Nitrite Ql (U) Negative Negative [facility] Protein Test strip Ql (U)Ord ered By: Deny Elias on 11-22-2024 Protein Ql (U) 30 mg/dl High Negative [facility] Prothrombin Time w/INRon INR Coag (PPP) [Relative time] 1.3 {INR} Normal [facility] Comment on above: Performed By: #### L 500.3400, L501.4020, L100.0100, M100.7900, L500.2500, L501.2450, L503.6005 #### [facility] [address] [place], [address] PT Coag (PPP) [Time] 16.0 s High 11.7-14.9 [facility] Comment on above: Performed By: #### L 500.3400, L501.4020, L100.0100, M100.7900, L500.2500, L501.2450, L503.6005 #### [facility] [address] [place], [address] Review by pathologistOrdered By: Deny Elias on 11-22-2024 Pathologist review Francisco Javier (Unsp spec) [Interp] Reviewed [facility] Comment on above: Previous reported re sult: Renetta price Edited by: CYNDI on 11/24/24:1607SEVERE Microcytic anemia.Clinical correlation necessary.Rick Penny M.D. 11/24/24 AMENDED REPORT 11/24/24 1607 PATH REV previously reported as: Renetta price Squamous epithelial cells de tection in urine sediment by light microscopyOrdered By: Deny Elias on 11-22-2024 Epithelial cells.squamous LM Ql (Urine sed) 0 SEEN /hpf 0-5 [facility] Stool Occult Blood iFOBon STOB Positive Normal [facility] Comment on above: Performed By: #### L 500.3400, L501.4020, L100.0100, M100.7900, L500.2500, L501.2450, L503.6005 #### [facility] [address] [place], [place], [id number] Stool gastrointestinal hemog lobin detection by immunologic methodOrdered By: Deny Elias on 11-22-2024 Lower GI hemoglobin IA Ql (Stl) Positive Abnormal [facility] Troponin IOrdered By: Deny gonzales on 11-22-2024 Troponin I 18 pg/mL 3.0-78.0 [facility] Comment on above: Please Note: New Digna t Units and Gender Specific Reference Ranges. For more information see Policy Stat Procedure [place] High Sensitivity Troponin (TNIH) and attachments. Type AND Screenon 11-22-2024 ABO and Rh group Nom (Bld) Blood group A Rh(D) positive Normal [facility] Comment on above: Order Comment: CMV N EG? NNumber of units to transfuse: 2Is there a >20% drop in pt's BP? YIs pt's HR > 100 bpm? YReason for Ordering Blood: AcuteAre the blood/blood products to be transfused? YIs the patient having/had surgery? Leanne Hernández Performed By: #### L 500.3400, L501.4020, L100.0100, M100.7900, L500.2500, L501.2450, L503.6005 #### [facility] [address] [place], [address] Urinalysis, Completeon 11-22 RBC 0 SEEN Normal 0-5 [facility] Comment on above: Order Comment: COLLE CTOR TO SPECIFY Performed By: #### M 100.678, L400.0001 ####[facility] [id number] [place], [place], [address] Urine clarityOrdered By: Ryanne Elias on 11-22-2024 Clarity (U) Clear Clear [facility] Urine color determinationOrd ered By: Deny Elias on 11-22-2024 Color (U) Yellow Yellow [facility] Urine glucose detectionOrder ed By: Deny Elias on 11-22-2024 Glucose Ql (U) Normal mg/dl Normal [facility] Urine leukocyte esterase det ection by dipstickOrdered By: Deny Elias on 11-22-2024 Leukocyte esterase Test strip Ql (U) 25 /ul High Negative [facility] Urine pHOrdered By: Deny nevarez on 11-22-2024 pH (U) 5.0 [pH] 5.0 - 8.0 [facility] Urine sediment bacteria coun t by microscopy (number/high power field)Ordered By: Deny Elias on 11-22-2024 Bacteria LM.HPF (Urine sed) [#/Area] 0 /[HPF] None Seen [facility] Urine specific gravity measu rementOrdered By: Deny Elias on 11-22-2024 Specific gravity (U) [Rel density] 1.015 1.002-1.03 0 [facility] Urine urobilinogen measureme ntOrdered By: Deny Elias on 11-22-2024 Urobilinogen Ql (U) 4 mg/dl High Normal [facility] Venous Duplex US - Dannie Extre [facility] 11-22-2024 Venous Duplex US - Dannie Extrem [facility] [address] [address] Venous Duplex US - Dannie Extrem 11/24/24 0840 MR#: [id number] Acct: [id number] Name: DENY BRONSON Rep #: [id number] : 1970 54 From: Edinson Kenney MD Attending Dr: Dr. John Love MD Status : ADM IN Ordering Dr: Dinah Lazaro DO Date: 11/22/24 Location: U Sex: M C Admitted: 11/22/24 Reason For Study Reason For Study: BLE SWELLING RIGHT LEFT GSV is normal. GSV is normal. CFV is compressible, spontaneous, competent and CFV is compressible, spontaneous, competent, and demonstrates pulsatile venous flow. demonstrates pulsatile venous flow. FV is compressible, spontaneous, competent and FV is compressible, spontaneous, competent and demonstrates pulsatile venous flow. demonstrates pulsatile venous flow. POP V is compressible, spontaneous, competent and POP V is compressible, spontaneous, competent and demonstrates pulsatile venous flow. demonstrates pulsatile venous flow. T/P Trunk is compressible. T/P Trunk is compressible. PTV is compressible. PTV is compressible. RT PerV is compressible. LT PerV is compressible. Procedure This is a venous duplex using B-mode, color flow and spectral Doppler. Exam performed portable in patient room. The exam was diagnostic. A preliminary report was called and/or faxed to PCU front desk auxiliary Jody. VL/Venous Duplex US - Dannie Extrem Interpretation Summary Deep veins of the lower extremities are bilaterally patent and compressible segmentally. There is no evidence of deep vein thrombosis on either side. Valvular competence appears intact within the proximal deep venous systems bilaterally. The great saphenous veins appear bilaterally patent and compressible segmentally. Pulsatile flow is noted in the deep venous system bilaterally, which may be indicative of elevated central venous pressure (i.e. congestive heart failure, pulmonary hypertension, etc.). Clinical correlation is advised. ___ Ordering Physician: Dinah Lazaro Performed By: Eyal Victor, T 11/24/241635 Date Edinson Kenney MD CC: Dr. Dinah Lazaro DO; Dr. John Love MD; No Primary Care Physician Date Dictated: 11/24/24839 Date Transcribed: 11/24/241635 Oncology Registrar: Signed Normal [facility] White blood cell countOrdere d By: Deny Elias on 11-22-2024 White blood cell count 0 SEEN /hpf 0-[address] [facility] CNOVon 07-25-2024 CNOV Office Visit (UCWSTR ) ----- DENY BRONSON ([id number]) 1970 M Date Time Provider Department 07/25/24 10:15 AM [facility] During your visit today, we recorded the following information about you: Temperature Pulse Respiration Blood pressure 97.1 degrees 110/minute 18/minute 100/61 Weight 94.6 kg Thomas Garcia APRN.CNP 07/25/2024 10:52 AM Signed This note was created using NoteWriter. Subjective Edny Shai Yaakov is a 54 year old male. HPI Pt complains of an itchy burning rash over his entire body. It seems worse while he is in bed. He denies any inside pets. 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 He does note that his house is less than well-maintained. Review of Systems Constitutional: Negative for fatigue and fever. Skin: Positive for rash. Objective BP 100/61 Pulse 110 Temp 36.2 ?C (97.1 ?F) Resp 18 Wt 94.6 kg (208 lb 8.9 oz) SpO2 100% Physical Exam Vitals and nursing note reviewed. Constitutional: General: He is not in acute distress. Appearance: Normal appearance. He is not ill-appearing. HENT: Head: Normocephalic. Mouth/Throat: Mouth: Mucous membranes are moist. Eyes: Conjunctiva/sclera: Conjunctivae normal. Pulmonary: Effort: Pulmonary effort is normal. Musculoskeletal: General: Normal range of motion. Cervical back: Normal range of motion. Skin: General: Skin is warm and dry. Comments: Patient has scattered small scabbed areas over his entire body. They are not linear in nature. They are not connected. There is no surrounding erythema to any of these areas. No drainage noted. No specific insects noted on exam. Neurological: General: No focal deficit present. Mental Status: He is alert. Psychiatric: Mood and Affect: Mood normal. Behavior: Behavior normal. Assessment and Plan ASSESSMENT/PLAN: 1. Insect bites and stings, initial encounter - ICD9: 919.4, 989.5, E906.4, E905.5, ICD10: W57.XXXA I have high suspicion for bedbugs as a cause of the patient's symptoms. Patient notes that he has washed his sheets but his mattress is very old and his house is not overly tidy. I recommended [id number] antihistamine such as Claritin or Zyrtec and discussed with him that he would benefit with having an reconditioning associate come and evaluate his house for insects and/or bedbugs. Patient did bring a small plastic bag of things that he found on his body which appeared to be mostly scabs and mouse excrement. Thomas Garcia APRN.LAURA Referring Provider: SELF [[id number]] Allergies As of Date: 07/25/2024 (No Known Allergies) Date Reviewed: 07/25/2024 Reviewed by: Thomas Garcia APRN.CONCESSION WORKER - Fully Assessed Reason for Visit: Insect Bite [929] Cmt: Widespread, unsure if bed bug bites Primary Visit Diagnosis:Insect bites and stings, initial encounter [W57.XXXA] Problem List As Of Date: 07/25/2024 (None) Encounter Status:Closed by THOMAS GARCIA on 07/25/24 Normal [facility] Blood hemoglobin measurement (mass/volume)Ordered By: Sal Jones on 04-25-2023 Hemoglobin (Bld) [Mass/Vol] 10.2 g/dL 13.0-16.5 [facility] Hematocrit Auto (Bld) [Volum e fraction]Ordered By: Sal Jones on 04-25-2023 Hematocrit (Bld) [Volume fraction] 34.9 % 40-54 [facility] Serum or plasma C reactive p rotein measurement (mass/volume)Ordered By: Sal Jones on 04-25-2023 CRP [Mass/Vol] 22.00 mg/L 0.0-3.0 [facility] Comment on above: C-Reactive Protein ( CRP) provides useful information for thediagnosis, therapy and monitoring of inflammatory processesand associated diseases. For the evaluation of Relative Riskfor Cardiovascular Disease, a High Sensitivity CRP (HSCRP)should be ordered. Basophil percentageOrdered B y: Sal Jones on 02-21-2023 WBC (Bld) [#/Vol] 12.6 10*3/uL 4.4-11.0 [facility] Blood erythrocytes count (nu mber/volume)Ordered By: Sal Jones on 02-21-2023 RBC (Bld) [#/Vol] 4.11 10*6/uL 4.6-6.2 [facility] Blood hemoglobin measurement (mass/volume)Ordered By: Sal Jones on 02-21-2023 Hemoglobin (Bld) [Mass/Vol] 9.1 g/dL 13.0-16.5 [facility] Blood platelet mean volumeOr dered By: Sal Jones on 02-21-2023 Platelet mean volume (Bld) [Entitic vol] 9.6 fL 6.2-12.0 [facility] Determination of erythrocyte mean corpuscular volume (MCV)Ordered By: Sal Jones on 02-21-2023 MCV (RBC) [Entitic vol] 76.4 fL 80-[address] [facility] Hematocrit Auto (Bld) [Volum e fraction]Ordered By: Sal Jones on 02-21-2023 Hematocrit (Bld) [Volume fraction] 31.4 % 40-54 [facility] Iron measurement (mass/mass) Ordered By: Sal Jones on 02-21-2023 Iron (Unsp spec) [Mass/Mass] 23 ug/dL 65-175 [facility] Laboratory - Hematology and Cell countsOrdered By: Sal Jones on 02-21-2023 Erythrocyte distribution width (RBC) [Entitic vol] 47.5 fL 35.1-43.9 [facility] Erythrocyte distribution width (RBC) [Ratio] 17.3 % 11.6-14.6 [facility] MCH (RBC) [Entitic mass] 22.1 pg 27.0-32.0 [facility] MCHC Auto (RBC) [Mass/Vol]Or dered By: Sal Jones on 02-21-2023 MCHC (RBC) [Mass/Vol] 29.0 g/dL 32-36 [facility] Platelets bldOrdered By: Anam Jones on 02-21-2023 Platelets (Bld) [#/Vol] 486 10*3/uL 150-450 [facility] Serum or plasma C reactive p rotein measurement (mass/volume)Ordered By: Sal Jones on 02-21-2023 CRP [Mass/Vol] 46.10 mg/L 0.0-3.0 [facility] Comment on above: C-Reactive Protein ( CRP) provides useful information for thediagnosis, therapy and monitoring of inflammatory processesand associated diseases. For the evaluation of Relative Riskfor Cardiovascular Disease, a High Sensitivity CRP (HSCRP)should be ordered. CT CORONARY ANGIOGRAPHY W+W/ O CONTRASTon 05-21-2021 CT CORONARY ANGIOGRAPHY W+W/O CONTRAST ORIGINAL CT CORONARY ANGIOGRAPHY W+W/O CONTRAST CLINICAL STATEMENT: CP equivocal nuclear FINDINGS: EXTRACARDIAC (Radiologist read) COMPARISON: None Most of the non-coronary chest anatomy is excluded in the FOV. MAIN PA: Dilated at 3.3 cm. No embolus centrally. AORTA: No atherosclerosis or aneurysm. LUNGS: No consolidation. ABDOMEN: Unremarkable. LYMPHATIC: No hilar or mediastinal adenopathy. BONES: No suspicious osseous lesion. Inferior most sternal wire is fractured, unchanged from 01/2021. NON-CARDIAC IMPRESSION: 1. Stable fracture of inferior most sternal wire. 2. Findings suggesting pulmonary arterial hypertension. Extracardiac portion of the report is signed by Kimmy Patricio MD on 05/17/2021 2:28 PM. TECHNIQUE: 1. Noncontrast CT of the heart was obtained for calcium scoring. 2. CTA with 66 c.c Omnipaque 350 IV contrast performed using prospective ECG gating about 1 cm above the AV to the diaphragm. FOV is very small to best evaluate the coronary arteries. Non-coronary chest anatomy is evaluated by Radiologist (Split read). Cumulative dose is mGy*cm 3. 3D postprocessing: MPR, MIP, +/- CPR, and volume rendering were performed. 4. This exam was performed according to our departmental dose optimization program, and includes the following measures where applicable: automated exposure control, adjustment of the mAs and/or kVp according to patient size and/or exam, and an iterative reconstruction algorithm. 5. This report adheres to SCCT / ACR / NASCI 2016 expert consensus document entitled, CAD-RADS(TM) Coronary Artery Disease - Reporting and Data System. MEDS: PO metoprolol (mg): None IV metoprolol (mg): 5 Nitroglycerin (mg): 0.4 SL COMPLICATIONS: None ACQUISITION HR (bpm): , regular rhythm. TECHNICAL QUALITY: Good with minor artifact but good diagnostic quality. LIMITATIONS: None Abbreviations: LM: left main, RCA: right coronary artery, PDA: posterior descending artery, PLB: posterolateral branch, AM: acute marginal, LAD: left anterior descending, LCx: left circumflex artery, OM: obtuse marginal, Dx: diagonal, D1: first diagonal, D2: second diagonal, HR: heart rate, RI: ramus intermedius, PA: pulmonary artery FINDINGS: CARDIAC (Salvage Mechanic read) NON-CORONARY HEART: Not enlarged. PERICARDIUM: Contour preserved. No effusion. No thickening. No calcifications. AV: Tricuspid. No thickening. No calcifications. MV: No thickening. No calcifications. CORONARY CORONARY CALCIUM SCORING AGATSTON SCORE LM: 0 LAD: 0 LCx: 0 RCA: 0 TOTAL: 0 Calcium Volume (mm^3): 0 Equivalent Mass (mg): 0 DOMINANCE: Co-dominant Coronary CTA interpretation utilizes diagonal branches to segment the LAD (prox, mid, distal) rather than the septal branches (as used on conventional angiography) as the latter are too small to visualize on CTA consistently. Left main: [< No significant disease.>] LAD and diagonal branches: No significant disease in the proximal LAD. After the 1st diagonal the mid LAD, there is mild to moderate disease, it is also tortuous. Noncalcified plaque about 40%. The proximal 1st I also has mild disease. 1st diagonal large size. The mid to distal LAD ends abruptly, I doubt CARBON GRINDER acute given the lack of calcium, possibly intramyocardial. Left circumflex and obtuse marginal branches: No significant disease in the proximal LCx. Mild disease in ostial 1st OM. The Mid-Distal Lcx and OM2 (bifurcation) has moderate disease, around 50%. Though it is a small caliber artery, slightly over 2mm. Right coronary artery and PDA: No significant disease, mild luminal irregularities. Ramus Intermedius: Small-moderate in size, no significant disease. IMPRESSION: Extracardiac (Radiology split read): 1. See above. Extracardiac portion of the report is signed by Richar Patricio on 05/17/2021 2:28 PM. Cardiac: 1. No coronary disease in proximal coronaries (LM, Prox LAD, Prox LCx, Prox RCA). 2. Mild Mid-LAD disease just distal to first diagonal. Tortuous. The mid to distal LAD ends abruptly, does not appear to be a CARBON GRINDER (no calcium), could be type I LAD. 3. Moderate disease in Mid Lcx /Proximal OM2. Small caliber artery, slightly over 2mm. 4. Agatston score: 0 CAD-RADS Score Degree of maximal coronary stenosis Interpretation Recommendation CAD-RADS 0 0% (No plaque or stenosis) Documented absence of CAD None CAD-RADS 1 1?24% - Minimal stenosis or plaque with no stenosis Minimal non-obstructive CAD None CAD-RADS 2 25?49% Mild stenosis Mild non-obstructive CAD Consider risk modification (aspirin, statin therapy, life style changes etc.,) CAD-RADS 3 50?69% stenosis Moderate stenosis Consider functional assessment (e.g., stress echo, nuclear stress test etc.,) AND Consider risk modification (aspirin, statin therapy, life style changes etc.,) CAD-RADS 4 A 70?99% stenosis Severe stenosis Consider cardiac catheterization OR functional (more content not included)... Normal [facility] [place] PSAon 05-06-2021 Prostate Specific Antigen 2.49 ng/mL Normal 0.00-4.00 [facility]) Comment on above: Performed By: #### P SA #### [address] [address] .GFRon 03-18-2021 GFR Non- 67 ml/min/1.73sqm Normal [facility] ([place]) Comment on above: Result Comment: GFR Population mean for , Non- Americans Ages 20-29 = 116 mL/min/1.73 sq.m. Ages 30-39 = 107 mL/min/1.73 sq.m. Ages 40-49 = 99 mL/min/1.73 sq.m. Ages 50-59 = 93 mL/min/1.73 sq.m. Ages 60-69 = 85 mL/min/1.73 sq.m. Ages 70+ = 75 mL/min/1.73 sq.m. Chronic Kidney Disease: Less than 60 mL/min/1.73 square meters End Stage Renal Disease: Less than 15 mL/min/1.73 square meters Performed By: #### P BNP #### [address] [address] #### BMP, GFR #### [place] [address] GFR 81 ml/min/1.73sqm Normal [facility] ([place]) Comment on above: Result Comment: GFR Population mean for , Non- Americans Ages 20-29 = 116 mL/min/1.73 sq.m. Ages 30-39 = 107 mL/min/1.73 sq.m. Ages 40-49 = 99 mL/min/1.73 sq.m. Ages 50-59 = 93 mL/min/1.73 sq.m. Ages 60-69 = 85 mL/min/1.73 sq.m. Ages 70+ = 75 mL/min/1.73 sq.m. Chronic Kidney Disease: Less than 60 mL/min/1.73 square meters End Stage Renal Disease: Less than 15 mL/min/1.73 square meters Performed By: #### P BNP #### [address] [address] #### BMP, GFR #### [address] [address] BMPon 03-18-2021 BUN/Creatinine Ratio 11 ratio Normal 7-27 [facility] ([place]) Comment on above: Performed By: #### P BNP #### [place] [address] #### BMP, GFR #### [address] [address] Calcium [Mass/Vol] 9.0 mg/dL Normal 8.4-10.2 [facility] ([place]) Comment on above: Performed By: #### P BNP #### [place] [address] #### BMP, GFR #### [place] [address] Chloride [Moles/Vol] 104 mmol/L Normal 98-107 [facility] ([place] Comment on above: Performed By: #### P BNP #### [place] [address] #### BMP, GFR #### [place] [address] CO2 [Moles/Vol] 26 mmol/L Normal 22-29 [facility] ([place] Comment on above: Performed By: #### P BNP #### [address] [address] #### BMP, GFR #### [address] [address] Creatinine [Mass/Vol] 1.15 mg/dL Normal 0.70-1.30 [facility] ([place]) Comment on above: Performed By: #### P BNP #### [place] [id number] #### BMP, GFR #### [place] [address] Electrolyte Balance 11.0 mEq/L Normal [facility] ([place]) Comment on above: Performed By: #### P BNP #### [address] [address] #### BMP, GFR #### [address] [address] Glucose [Mass/Vol] 89 mg/dL Normal 70-105 [facility] ([place]) Comment on above: Performed By: #### P BNP #### [place] [id number] #### BMP, GFR #### [address] [address] Potassium [Moles/Vol] 4.0 mmol/L Normal 3.5-5.1 [facility] ([place] Comment on above: Performed By: #### P BNP #### [place] [id number] #### BMP, GFR #### [place] [address] Sodium [Moles/Vol] 141 mmol/L Normal 136-145 [facility] ([place] Comment on above: Performed By: #### P BNP #### [address] [address] #### BMP, GFR #### [address] [address] Urea nitrogen [Mass/Vol] 13 mg/dL Normal 7-18 [facility] ([place] Comment on above: Performed By: #### P BNP #### [address] [address] #### BMP, GFR #### [address] [address] PBNPon 03-18-2021 Natriuretic peptide B (Bld) [Mass/Vol] 176 pg/mL High 0-125 [facility] ([place] Comment on above: Result Comment: NT-p roBNP results of less than 300 pg/mL effectively rules out acute congestive heart failure with 99% negative predictive value. Performed By: #### P BNP #### [place] [id number] [place], [place] [address] #### BMP, GFR #### [address] [address] NM MYOCARDIAL SPECT STRESS/R ESTon 02-11-2021 NM MYOCARDIAL SPECT STRESS/REST ORIGINAL NM MYOCARDIAL SPECT STRESS/REST CLINICAL STATEMENT: CP TECHNIQUE: Lexiscan dose:0.4 mg Radiopharmaceutical (stress): Tc-99m Sestamibi Dose:32.6 mCi Radiopharmaceutical (rest): Tc-99m Sestamibi Dose:10.8 mCi SPECT acquisition and processing Reconstruction and reorientation of SPECT images into short axis, vertical and horizontal long axis planes Quantitative LVEF assessment COMPARISON:None. REPORT:Rotating planar images demonstrate increased tracer uptake adjacent to the inferior wall. SPECT perfusion images demonstrate mild reversible defect in the basal inferolateral segment. Tid ratio within normal limits. Gated SPECT images demonstrate abnormal septal motion with normal septal wall thickening. Remaining myocardial segments demonstrate normal wall motion and wall thickening. End-diastolic volume is 170 mL. Ejection fraction is 53%. IMPRESSION: 1. Technically difficult study due to subdiaphragmatic tracer activity. 2. Possible mild ischemia involving basal inferolateral segment. No evidence of prior ischemia. 3. Abnormal septal motion with dilated LEFT ventricle with end-diastolic volume 170 mL. Ejection fraction 53 %. 4. No prior studies for comparison. Interpreted By: Lesley Klein MD Preliminary Report By: Lesley Klein MD Electronically Signed By: Lesley Klein MD Dictated Date: 02/11/2021 10:52:14 AM Prelim Date: 02/11/2021 10:52:14 AM Sign Date: 02/11/2021 10:56:41 AM Ordering Provider:Hector Shea [facility] ([place]) .Auto Diffon 02-03-2021 Basophil, Absolute 0.10 10 3/mcL Normal 0.00-0.19 [facility]) Comment on above: Performed By: #### P BNP #### [place] [id number] [place], [place] [address] #### BMP, GFR #### [address] [address] Basophils/100 WBC (Bld) 0.9 % Normal 0.0-2.5 [facility] ([place]) Comment on above: Performed By: #### P BNP #### [place] [address] #### BMP, GFR #### [address] [address] Eosinophil, Absolute 0.30 10 3/mcL Normal 0.00-0.40 [facility] ([place] Comment on above: Performed By: #### P BNP #### [place] [address] #### BMP, GFR #### [address] [address] Eosinophils/100 WBC (Bld) 2.1 % Normal 0.0-7.0 [facility] ([place] Comment on above: Performed By: #### P BNP #### [place] [address] #### BMP, GFR #### [address] [address] Lymphocyte, Absolute 1.80 10 3/mcL Normal 0.77-3.85 [facility] ([place] Comment on above: Performed By: #### P BNP #### [place] [address] #### BMP, GFR #### [address] [address] Lymphocytes/100 WBC (Bld) 12.6 % Normal 10.0-50.0 [facility] ([place] Comment on above: Performed By: #### P BNP #### [place] [address] #### BMP, GFR #### [address] [address] Monocyte, Absolute 1.20 10 3/mcL High 0.15-1.00 [facility] ([place]) Comment on above: Performed By: #### P BNP #### [place] [address] #### BMP, GFR #### [address] [address] Monocytes/100 WBC (Bld) 8.2 % Normal 1.7-13.0 [facility] ([place] Comment on above: Performed By: #### P BNP #### [address] [address] #### BMP, GFR #### [address] [address] Neutrophils/100 WBC (Bld) 76.2 % Normal 37.0-80.0 [facility] ([place]) Comment on above: Performed By: #### P BNP #### [address] [address] #### BMP, GFR #### [address] [address] .GFRon 02-03-2021 GFR Non- 77 ml/min/1.73sqm Normal [facility] ([place]) Comment on above: Result Comment: GFR Population mean for , Non- Americans Ages 20-29 = 116 mL/min/1.73 sq.m. Ages 30-39 = 107 mL/min/1.73 sq.m. Ages 40-49 = 99 mL/min/1.73 sq.m. Ages 50-59 = 93 mL/min/1.73 sq.m. Ages 60-69 = 85 mL/min/1.73 sq.m. Ages 70+ = 75 mL/min/1.73 sq.m. Chronic Kidney Disease: Less than 60 mL/min/1.73 square meters End Stage Renal Disease: Less than 15 mL/min/1.73 square meters Performed By: #### P BNP #### [address] [address] #### BMP, GFR #### [address] [address] GFR 93 ml/min/1.73sqm Normal [facility] ([place] Comment on above: Result Comment: GFR Population mean for , Non- Americans Ages 20-29 = 116 mL/min/1.73 sq.m. Ages 30-39 = 107 mL/min/1.73 sq.m. Ages 40-49 = 99 mL/min/1.73 sq.m. Ages 50-59 = 93 mL/min/1.73 sq.m. Ages 60-69 = 85 mL/min/1.73 sq.m. Ages 70+ = 75 mL/min/1.73 sq.m. Chronic Kidney Disease: Less than 60 mL/min/1.73 square meters End Stage Renal Disease: Less than 15 mL/min/1.73 square meters Performed By: #### P BNP #### [place] [address] #### BMP, GFR #### [place] [address] .NEUABSon 02-03-2021 Neutrophil, Absolute 11.00 10 3/mcL High 2.85-6.16 [facility] ([place] Comment on above: Performed By: #### P BNP #### [place] [address] #### BMP, GFR #### [place] [address] CBCon 02-03-2021 Erythrocyte distribution width (RBC) [Ratio] 16.6 % High 11.5-14.5 [facility] ([place] Comment on above: Performed By: #### P BNP #### [place] [address] #### BMP, GFR #### [place] [address] Hematocrit (Bld) [Volume fraction] 41.3 % Low 42.0-52.0 [facility] ([place] Comment on above: Performed By: #### P BNP #### [place] [address] #### BMP, GFR #### [place] [address] Hgb 13.6 G/dL Low 14.0-18.0 [facility] ([place] Comment on above: Performed By: #### P BNP #### [place] [address] #### BMP, GFR #### [place] [address] MCH (RBC) [Entitic mass] 28.1 pg Normal 27.0-31.2 [facility] ([place] Comment on above: Performed By: #### P BNP #### [place] [address] #### BMP, GFR #### [place] [address] MCHC 32.9 G/dL Normal 31.8-35.4 [facility] ([place] Comment on above: Performed By: #### P BNP #### [place] [address] #### BMP, GFR #### [place] [address] MCV (RBC) [Entitic vol] 85.5 fL Normal 80.0-94.0 [facility] ([place] Comment on above: Performed By: #### P BNP #### [place] [address] #### BMP, GFR #### [place] [address] Platelet 499 10 3/mcL High 130-400 [facility] ([place] Comment on above: Performed By: #### P BNP #### [place] [address] #### BMP, GFR #### [place] [address] Platelet mean volume (Bld) [Entitic vol] 7.6 fL Normal 7.4-10.4 [facility] ([place] Comment on above: Performed By: #### P BNP #### [place] [address] #### BMP, GFR #### [place] [address] RBC 4.83 10 6/mcL Normal 4.04-6.13 [facility] ([place] Comment on above: Performed By: #### P BNP #### [place] [address] #### BMP, GFR #### [address] [address] WBC 14.50 10 3/mcL High 4.60-10.80 [facility] ([place] Comment on above: Performed By: #### P BNP #### [place] [address] #### BMP, GFR #### [place] [address] CMPon 02-03-2021 Albumin Level 3.3 G/dL Low 3.5-5.0 [facility] ([place] Comment on above: Performed By: #### P BNP #### [place] [address] #### BMP, GFR #### [place] [address] Albumin/Globulin [Mass ratio] 0.8 {ratio} Low 1.1-2.5 [facility] ([place] Comment on above: Performed By: #### P BNP #### [place] [address] #### BMP, GFR #### [address] [address] ALP [Catalytic activity/Vol] 144 U/L High 40-135 [facility] ([place] Comment on above: Performed By: #### P BNP #### [place] [address] #### BMP, GFR #### [address] [address] ALT [Catalytic activity/Vol] 42 U/L Normal 16-63 [facility] ([place] Comment on above: Performed By: #### P BNP #### [place] [id number] #### BMP, GFR #### [address] [address] AST [Catalytic activity/Vol] 24 U/L Normal 10-40 [facility] ([place] Comment on above: Performed By: #### P BNP #### [place] [id number] #### BMP, GFR #### [address] [address] Bili Total 0.5 mg/dL Normal 0.2-1.0 [facility] ([place] Comment on above: Result Comment: Use of this assay is not recommended for patients undergoing treatment with eltrombopag due to the potential for falsely elevated results. Performed By: #### P BNP #### [place] [address] #### BMP, GFR #### [place] [address] BUN/Creatinine Ratio 14 ratio Normal 7-27 [facility] ([place] Comment on above: Performed By: #### P BNP #### [place] [address] #### BMP, GFR #### [address] [address] Calcium [Mass/Vol] 8.9 mg/dL Normal 8.4-10.2 [facility] ([place] Comment on above: Performed By: #### P BNP #### [place] [id number] #### BMP, GFR #### [address] [address] Chloride [Moles/Vol] 104 mmol/L Normal 98-107 [facility] ([place] Comment on above: Performed By: #### P BNP #### [place] [address] #### BMP, GFR #### [address] [address] CO2 [Moles/Vol] 26 mmol/L Normal 22-29 [facility] ([place] Comment on above: Performed By: #### P BNP #### [place] [address] #### BMP, GFR #### [address] [address] Creatinine [Mass/Vol] 1.02 mg/dL Normal 0.70-1.30 [facility] ([place] Comment on above: Performed By: #### P BNP #### [address] [address] #### BMP, GFR #### [address] [address] Electrolyte Balance 11.0 mEq/L Normal [facility] ([place] Comment on above: Performed By: #### P BNP #### [address] [address] #### BMP, GFR #### [address] [address] Globulin 4.3 G/dL Normal [facility] ([place] Comment on above: Performed By: #### P BNP #### [place] [id number] #### BMP, GFR #### [address] [address] Glucose [Mass/Vol] 92 mg/dL Normal 70-105 [facility] ([place] Comment on above: Performed By: #### P BNP #### [address] [address] #### BMP, GFR #### [address] [address] Potassium [Moles/Vol] 4.3 mmol/L Normal 3.5-5.1 [facility] ([place] Comment on above: Performed By: #### P BNP #### [address] [address] #### BMP, GFR #### [address] [address] Sodium [Moles/Vol] 141 mmol/L Normal 136-145 [facility] ([place] Comment on above: Performed By: #### P BNP #### [place] [id number] #### BMP, GFR #### [address] [address] Total Protein 7.6 G/dL Normal 6.4-8.2 [facility] ([place] Comment on above: Performed By: #### P BNP #### [address] [address] #### BMP, GFR #### [address] [address] Urea nitrogen [Mass/Vol] 14 mg/dL Normal 7-18 [facility] ([place] Comment on above: Performed By: #### P BNP #### [address] [address] #### BMP, GFR #### [address] [address] LIPIDon 02-03-2021 Cholesterol [Mass/Vol] 173 mg/dL Normal 0-200 [facility] ([place] Comment on above: Result Comment: Chol esterol Reference Interval: Less than 200 Desirable 200-239 Borderline high risk 240 and above High risk Performed By: #### P BNP #### [address] [address] #### BMP, GFR #### [address] [address] Cholesterol in HDL [Mass/Vol] 65 mg/dL High 40-60 [facility] ([place] Comment on above: Performed By: #### P BNP #### [address] [address] #### BMP, GFR #### [address] [address] Cholesterol in LDL [Mass/Vol] 90 mg/dL Normal 0-130 [facility] ([place] Comment on above: Performed By: #### P BNP #### [address] [address] #### BMP, GFR #### [address] [address] Triglyceride [Mass/Vol] 92 mg/dL Normal 0-150 [facility] ([place]) Comment on above: Result Comment: Trig lyceride Reference Interval: Less than 150 Normal 150-199 Borderline high risk 200-499 High risk 500 or higher Very high risk Performed By: #### P BNP #### [place] [address] #### BMP, GFR #### [place] [address] PBNPon 02-03-2021 Natriuretic peptide B (Bld) [Mass/Vol] 561 pg/mL High 0-125 [facility] ([place] Comment on above: Result Comment: NT-p roBNP results of less than 300 pg/mL effectively rules out acute congestive heart failure with 99% negative predictive value. Performed By: #### C MP, GFR, TSH, LIPID #### [place] [address] #### CBC, ANEU, PBNP, ADIFF #### [place] [address] TSHon 02-03-2021 TSH Qn 1.83 m[IU]/L Normal 0.36-3.74 [facility] ([place] Comment on above: Performed By: #### P BNP #### [place] [address] #### BMP, GFR #### [place] [address] CT ANGIOGRAPHY CHEST W/CONTR Benedict 01-22-2021 CT ANGIOGRAPHY CHEST W/CONTRAST ORIGINAL CT PULMONARY ANGIOGRAM WITH IV CONTRAST: with post-processing, volume rendering and 3-D acquisitions. This exam was performed according to our departmental dose optimization program, and includes the following measures where applicable: automated exposure control, adjustment of the mAs and/or kVp according to patient size and/or exam, and an iterative reconstruction algorithm. CLINICAL STATEMENT: chest pain; suspect PE. Recent Covid COMPARISON:None. FINDINGS: There is adequate contrast opacification of the pulmonary arterial vasculature. There is no filling defect or vessel cutoff to indicate pulmonary embolus to the level of the segmental arteries. The main pulmonary artery is large, consistent with pulmonary arterial hypertension. There is no evidence of right heart strain. The thoracic aorta is normal in caliber, and demonstrates no dissection flap. Prior sternotomy is noted with aortic valvular replacement. The heart is globally enlarged There is no pericardial effusion. There is no evidence of coronary artery calcification. There are mediastinal enlarged lymph nodes, with a uniforms sales representative pretracheal lymph node measuring 15 mm, and a more superior mediastinal node measuring 12 mm. Central airways appear predominantly patent. There is mild bilateral bronchial wall thickening. There are scattered areas of nodular groundglass consolidation diffusely throughout the lungs. No significant interlobular septal thickening or geographic groundglass. There is no pneumothorax or pleural fluid. There is no acute fracture or aggressive osseous lesion. Limited images of the upper abdomen are noncontributory. IMPRESSION: No pulmonary emboli, dissection flap, or RIGHT heart strain. Multifocal nodular groundglass consolidations, likely on the basis of an infectious or inflammatory process. Mediastinal lymphadenopathy is presumably reactive. I have personally reviewed the images of this examination and agree with the resident's findings and interpretation. Interpreted By: Andrzej Hernandez MD Preliminary Report By: Man Diaz DO Electronically Signed By: Andrzej Hernandez MD Dictated Date: 01/21/2021 10:33:37 PM Prelim Date: 01/21/2021 10:42:16 PM Sign Date: 01/21/2021 10:57:46 PM Ordering Provider:Sylvie Shea [facility] ([place] .Auto Diffon 01-21-2021 Basophil, Absolute 0.00 10 3/mcL Normal 0.00-0.19 [facility] ([place]) Comment on above: Performed By: #### A GINA, CBC, BMP, ADIFF #### [address] [address] #### GFR #### [address] [address] Basophils/100 WBC (Bld) 0.3 % Normal 0.0-2.5 [facility] ([place] Comment on above: Performed By: #### A GINA, CBC, BMP, ADIFF #### [address] [address] #### GFR #### [address] [address] Eosinophil, Absolute 0.20 10 3/mcL Normal 0.00-0.40 [facility] ([place] Comment on above: Performed By: #### A GINA, CBC, BMP, ADIFF #### [address] [address] #### GFR #### [address] [address] Eosinophils/100 WBC (Bld) 1.2 % Normal 0.0-7.0 [facility] ([place] Comment on above: Performed By: #### A GINA, CBC, BMP, ADIFF #### [address] [address] #### GFR #### [address] [address] Lymphocyte, Absolute 1.30 10 3/mcL Normal 0.77-3.85 [facility] ([place] Comment on above: Performed By: #### A GINA, CBC, BMP, ADIFF #### [address] [address] #### GFR #### [address] [address] Lymphocytes/100 WBC (Bld) 8.9 % Low 10.0-50.0 [facility] ([place] Comment on above: Performed By: #### A GINA, CBC, BMP, ADIFF #### [address] [address] #### GFR #### [address] [address] Monocyte, Absolute 1.70 10 3/mcL High 0.15-1.00 [facility] ([place] Comment on above: Performed By: #### A GINA, CBC, BMP, ADIFF #### [address] [address] #### GFR #### [address] [address] Monocytes/100 WBC (Bld) 11.1 % Normal 1.7-13.0 [facility] [place] Comment on above: Performed By: #### A GINA, CBC, BMP, ADIFF #### [address] [address] #### GFR #### [address] [address] Neutrophils/100 WBC (Bld) 78.5 % Normal 37.0-80.0 [facility] ([place] Comment on above: Performed By: #### A GINA, CBC, BMP, ADIFF #### [address] [address] #### GFR #### [address] [address] .GFRon 01-21-2021 GFR Non- 59 ml/min/1.73sqm Normal [facility] ([place]) Comment on above: Result Comment: GFR Population mean for , Non- Americans Ages 20-29 = 116 mL/min/1.73 sq.m. Ages 30-39 = 107 mL/min/1.73 sq.m. Ages 40-49 = 99 mL/min/1.73 sq.m. Ages 50-59 = 93 mL/min/1.73 sq.m. Ages 60-69 = 85 mL/min/1.73 sq.m. Ages 70+ = 75 mL/min/1.73 sq.m. Chronic Kidney Disease: Less than 60 mL/min/1.73 square meters End Stage Renal Disease: Less than 15 mL/min/1.73 square meters Performed By: #### A GINA, CBC, BMP, ADIFF #### [address] [address] #### GFR #### [address] [address] GFR 72 ml/min/1.73sqm Normal [facility] ([place]) Comment on above: Result Comment: GFR Population mean for , Non- Americans Ages 20-29 = 116 mL/min/1.73 sq.m. Ages 30-39 = 107 mL/min/1.73 sq.m. Ages 40-49 = 99 mL/min/1.73 sq.m. Ages 50-59 = 93 mL/min/1.73 sq.m. Ages 60-69 = 85 mL/min/1.73 sq.m. Ages 70+ = 75 mL/min/1.73 sq.m. Chronic Kidney Disease: Less than 60 mL/min/1.73 square meters End Stage Renal Disease: Less than 15 mL/min/1.73 square meters Performed By: #### A GINA, CBC, BMP, ADIFF #### [address] [address] #### GFR #### [address] [address] .NEUABSon 01-21-2021 Neutrophil, Absolute 11.60 10 3/mcL High 2.85-6.16 [facility] [place] Comment on above: Performed By: #### A GINA, CBC, BMP, ADIFF #### [place] [address] #### GFR #### [address] [address] BMPon 01-21-2021 BUN/Creatinine Ratio 11 ratio Normal 7-27 [facility] ([place] Comment on above: Performed By: #### A GINA, CBC, BMP, ADIFF #### [place] [address] #### GFR #### [place] [address] Calcium [Mass/Vol] 7.8 mg/dL Low 8.4-10.2 [facility] ([place] Comment on above: Performed By: #### A GINA, CBC, BMP, ADIFF #### [place] [address] #### GFR #### [address] [address] Chloride [Moles/Vol] 99 mmol/L Normal 98-107 [facility] ([place] Comment on above: Performed By: #### A GINA, CBC, BMP, ADIFF #### [place] [id number] #### GFR #### [address] [address] CO2 [Moles/Vol] 26 mmol/L Normal 22-29 [facility] ([place] Comment on above: Performed By: #### A GINA, CBC, BMP, ADIFF #### [address] [address] #### GFR #### [address] [address] Creatinine [Mass/Vol] 1.28 mg/dL Normal 0.70-1.30 [facility] ([place] Comment on above: Performed By: #### A GINA, CBC, BMP, ADIFF #### [address] [address] #### GFR #### [address] [address] Electrolyte Balance 11.0 mEq/L Normal [facility] ([place] Comment on above: Performed By: #### A GINA, CBC, BMP, ADIFF #### [address] [address] #### GFR #### [address] [address] Glucose [Mass/Vol] 105 mg/dL Normal 70-105 [facility] ([place] Comment on above: Performed By: #### A GINA, CBC, BMP, ADIFF #### [address] [address] #### GFR #### [address] [address] Potassium [Moles/Vol] 4.2 mmol/L Normal 3.5-5.1 [facility] ([place] Comment on above: Performed By: #### A GINA, CBC, BMP, ADIFF #### [address] [address] #### GFR #### [address] [address] Sodium [Moles/Vol] 136 mmol/L Normal 136-145 [facility] ([place] Comment on above: Performed By: #### A GINA, CBC, BMP, ADIFF #### [place] [address] #### GFR #### [address] [address] Urea nitrogen [Mass/Vol] 14 mg/dL Normal 7-18 [facility] ([place] Comment on above: Performed By: #### A GINA, CBC, BMP, ADIFF #### [address] [address] #### GFR #### [place] [address] CBCon 01-21-2021 Erythrocyte distribution width (RBC) [Ratio] 16.5 % High 11.5-14.5 [facility] ([place] Comment on above: Performed By: #### A GINA, CBC, BMP, ADIFF #### [address] [address] #### GFR #### [place] [address] Hematocrit (Bld) [Volume fraction] 38.3 % Low 42.0-52.0 [facility] ([place] Comment on above: Performed By: #### A GINA, CBC, BMP, ADIFF #### [place] [address] #### GFR #### [place] [address] Hgb 12.6 G/dL Low 14.0-18.0 [facility] ([place] Comment on above: Performed By: #### A GINA, CBC, BMP, ADIFF #### [place] [address] #### GFR #### [place] [address] MCH (RBC) [Entitic mass] 28.0 pg Normal 27.0-31.2 [facility] ([place] Comment on above: Performed By: #### A GINA, CBC, BMP, ADIFF #### [place] [id number] #### GFR #### [place] [address] MCHC 32.8 G/dL Normal 31.8-35.4 [facility] ([place] Comment on above: Performed By: #### A GINA, CBC, BMP, ADIFF #### [place] [address] #### GFR #### [place] [address] MCV (RBC) [Entitic vol] 85.3 fL Normal 80.0-94.0 [facility] [place] Comment on above: Performed By: #### A GINA, CBC, BMP, ADIFF #### [place] [address] #### GFR #### [place] [address] Platelet 356 10 3/mcL Normal 130-400 [facility] ([place] Comment on above: Performed By: #### A GIAN, CBC, BMP, ADIFF #### [place] [address] #### GFR #### [place] [address] Platelet mean volume (Bld) [Entitic vol] 7.7 fL Normal 7.4-10.4 [facility] ([place] Comment on above: Performed By: #### A GINA, CBC, BMP, ADIFF #### [place] [address] #### GFR #### [place] [address] RBC 4.49 10 6/mcL Normal 4.04-6.13 [facility] ([place] Comment on above: Performed By: #### A GINA, CBC, BMP, ADIFF #### [place] [address] #### GFR #### [place] [address] WBC 14.80 10 3/mcL High 4.60-10.80 [facility] ([place] Comment on above: Performed By: #### A GINA, CBC, BMP, ADIFF #### [place] [address] #### GFR #### [address] [address] XR CHEST 2 VIEWSon XR CHEST 2 VIEWS ORIGINAL Indication: 50 years old Male. Shortness of breath Technique: XR CHEST 2 VIEWS Comparison: 01/05/2021 Findings/impression: Marked interstitial edema and pulmonary vascular congestion. No focal lung consolidation. No pneumothorax. Probable small LEFT pleural effusion. Cardiomegaly. Interpreted By: Melchor Angulo Preliminary Report By: Melchor Angulo Electronically Signed By: Melchor Angulo Dictated Date: 01/21/2021 3:33:16 PM Prelim Date: 01/21/2021 3:33:16 PM Sign Date: 01/21/2021 3:34:02 PM Ordering Provider:Richar Shea [facility] [place] .Auto Diffon 01-11-2021 Basophil, Absolute 0.00 10 3/mcL Normal 0.00-0.19 [facility] ([place] Comment on above: Performed By: #### P BNP #### [place] [address] #### BMP, GFR #### [address] [address] Basophils/100 WBC (Bld) 0.0 % Normal 0.0-2.5 [facility] [place] Comment on above: Performed By: #### P BNP #### [address] [address] #### BMP, GFR #### [address] [address] Eosinophil, Absolute 0.00 10 3/mcL Normal 0.00-0.40 [facility] [place] Comment on above: Performed By: #### P BNP #### [place] [address] #### BMP, GFR #### [address] [address] Eosinophils/100 WBC (Bld) 0.1 % Normal 0.0-7.0 [facility] ([place] Comment on above: Performed By: #### P BNP #### [place] [id number] #### BMP, GFR #### [address] [address] Lymphocyte, Absolute 1.60 10 3/mcL Normal 0.77-3.85 [facility] [place] Comment on above: Performed By: #### P BNP #### [place] [address] #### BMP, GFR #### [address] [address] Lymphocytes/100 WBC (Bld) 11.5 % Normal 10.0-50.0 [facility] ([place] Comment on above: Performed By: #### P BNP #### [place] [id number] #### BMP, GFR #### [address] [address] Monocyte, Absolute 0.70 10 3/mcL Normal 0.15-1.00 [facility] ([place] Comment on above: Performed By: #### P BNP #### [place] [id number] #### BMP, GFR #### [address] [address] Monocytes/100 WBC (Bld) 4.9 % Normal 1.7-13.0 [facility] [place] Comment on above: Performed By: #### P BNP #### [place] [id number] #### BMP, GFR #### [address] [address] Neutrophils/100 WBC (Bld) 83.5 % High 37.0-80.0 [facility] [place] Comment on above: Performed By: #### P BNP #### [place] [id number] #### BMP, GFR #### [address] [address] .NEUABSon 01-11-2021 Neutrophil, Absolute 11.90 10 3/mcL High 2.85-6.16 [facility] ([place] Comment on above: Performed By: #### P BNP #### [place] [address] #### BMP, GFR #### [place] [address] CBCon 01-11-2021 Erythrocyte distribution width (RBC) [Ratio] 17.6 % High 11.5-14.5 [facility] ([place] Comment on above: Performed By: #### P BNP #### [place] [address] #### BMP, GFR #### [place] [address] Hematocrit (Bld) [Volume fraction] 42.2 % Normal 42.0-52.0 [facility] ([place] Comment on above: Performed By: #### P BNP #### [place] [address] #### BMP, GFR #### [place] [address] Hgb 14.1 G/dL Normal 14.0-18.0 [facility] ([place] Comment on above: Performed By: #### P BNP #### [place] [address] #### BMP, GFR #### [place] [address] MCH (RBC) [Entitic mass] 28.3 pg Normal 27.0-31.2 [facility] ([place] Comment on above: Performed By: #### P BNP #### [place] [address] #### BMP, GFR #### [place] [address] MCHC 33.4 G/dL Normal 31.8-35.4 [facility] ([place] Comment on above: Performed By: #### P BNP #### [place] [address] #### BMP, GFR #### [place] [address] MCV (RBC) [Entitic vol] 84.8 fL Normal 80.0-94.0 [facility] [place] Comment on above: Performed By: #### P BNP #### [place] [address] #### BMP, GFR #### [place] [address] Platelet 326 10 3/mcL Normal 130-400 [facility] [place] Comment on above: Performed By: #### P BNP #### [place] [address] #### BMP, GFR #### [place] [address] Platelet mean volume (Bld) [Entitic vol] 8.4 fL Normal 7.4-10.4 [facility] ([place] Comment on above: Performed By: #### P BNP #### [place] [address] #### BMP, GFR #### [place] [address] RBC 4.98 10 6/mcL Normal 4.04-6.13 [facility] ([place] Comment on above: Performed By: #### P BNP #### [place] [address] #### BMP, GFR #### [place] [address] WBC 14.30 10 3/mcL High 4.60-10.80 [facility] ([place] Comment on above: Performed By: #### P BNP #### [place] [address] #### BMP, GFR #### [place] [address] CRPon 01-11-2021 C-Reactive Protein 1.4 mg/dL High 0.0-0.9 [facility] ([place] Comment on above: Performed By: #### P BNP #### [address] [address] #### BMP, GFR #### [place] [address] DIMERon 01-11-2021 D-Dimer 381 ng/mL D-DU High 0-230 [facility] ([place] Comment on above: Result Comment: The result of the D-Dimer test should be evaluated in the context of all the clinical and laboratory data available. In those instances where the laboratory result does not agree with the clinical evaluation, additional tests should be performed accordingly. If the D-Dimer result is used to exclude DVT or PE, the recommended cutoff value is less than 230 ng/mL. The D-Dimer result should not be used alone to rule in DVT/PE, but should be used in conjunction with a clinical pretest probability (PTP)assessment model to exclude venous thromboembolism (VTE) in outpatients suspected of deep venous thrombosis (DVT) and pulmonary embolism (PE). Performed By: #### P BNP #### [place] [address] #### BMP, GFR #### [place] [address] Melva 01-11-2021 Ferritin [Mass/Vol] 138.6 ng/mL Normal 26.0-388.0 [facility] ([place] Comment on above: Performed By: #### P BNP #### [address] [address] #### BMP, GFR #### [place] [id number] FIBon 01-11-2021 Fibrinogen 526 mg/dL Normal 292-711 [facility] ([place] Comment on above: Performed By: #### P BNP #### [place] [address] #### BMP, GFR #### [place] [address] LDHon 01-11-2021 LDH 370 U/L High 85-227 [facility] ([place] Comment on above: Performed By: #### P BNP #### [place] [address] #### BMP, GFR #### [place] [address] MGon 01-11-2021 Magnesium [Mass/Vol] 1.5 mg/dL Low 1.8-2.4 [facility] ([place] Comment on above: Performed By: #### P BNP #### [place] [address] #### BMP, GFR #### [place] [address] PROon 01-11-2021 INR Coag (PPP) [Relative time] 0.9 {INR} Normal 0.9-1.2 [facility] ([place] Comment on above: Result Comment: Yohannes dard Dose 2.0 - 3.0 High Dose 2.5 - 3.5 The recommended therapeutic range for oral anticoagulant therapy is: LOW RISK: Prophylaxis of venous thrombosis INR: 2.0 - 3.0 Treatment of pulmonary embolism 2.0 - 3.0 Prevention of systemic embolism 2.0 - 3.0 HIGH RISK: Mechanical prosthetic valves 2.5 - 3.5 Performed By: #### P BNP #### [place] [address] #### BMP, GFR #### [place] [address] PT Coag (PPP) [Time] 11.2 s Normal 9.7-14.7 [facility] ([place] Comment on above: Performed By: #### P BNP #### [place] [address] #### BMP, GFR #### [place] [address] TROPHSon 01-11-2021 Troponin I High Sensitivity 12.1 ng/L Normal 0.0-76.2 [facility] ([place] Comment on above: Performed By: #### P BNP #### [place] [address] #### BMP, GFR #### [place] [address] .GFRon 01-10-2021 GFR 86 ml/min/1.73sqm Normal [facility] ([place]) Comment on above: Result Comment: GFR Population mean for , Non- Americans Ages 20-29 = 116 mL/min/1.73 sq.m. Ages 30-39 = 107 mL/min/1.73 sq.m. Ages 40-49 = 99 mL/min/1.73 sq.m. Ages 50-59 = 93 mL/min/1.73 sq.m. Ages 60-69 = 85 mL/min/1.73 sq.m. Ages 70+ = 75 mL/min/1.73 sq.m. Chronic Kidney Disease: Less than 60 mL/min/1.73 square meters End Stage Renal Disease: Less than 15 mL/min/1.73 square meters Performed By: #### A GINA, CBC, BMP, ADIFF #### [address] [address] #### GFR #### [place] [address] GFR Non- 71 ml/min/1.73sqm Normal [facility] ([place] Comment on above: Result Comment: GFR Population mean for , Non- Americans Ages 20-29 = 116 mL/min/1.73 sq.m. Ages 30-39 = 107 mL/min/1.73 sq.m. Ages 40-49 = 99 mL/min/1.73 sq.m. Ages 50-59 = 93 mL/min/1.73 sq.m. Ages 60-69 = 85 mL/min/1.73 sq.m. Ages 70+ = 75 mL/min/1.73 sq.m. Chronic Kidney Disease: Less than 60 mL/min/1.73 square meters End Stage Renal Disease: Less than 15 mL/min/1.73 square meters Performed By: #### A GINA, CBC, BMP, ADIFF #### [address] [address] #### GFR #### [place] [address] .Manual Diffon 01-10-2021 Bands 5.0 % Normal 0.0-5.0 [facility] ([place] Comment on above: Performed By: #### A GINA, CBC, BMP, ADIFF #### [place] [address] #### GFR #### [address] [address] Basophil %, Manual 0.0 % Normal 0.0-2.5 [facility] ([place] Comment on above: Performed By: #### A GINA, CBC, BMP, ADIFF #### [place] [address] #### GFR #### [address] [address] Basophil, Abs Manual 0.00 10 3/mcL Normal 0.00-0.19 [facility] [place] Comment on above: Performed By: #### A GINA, CBC, BMP, ADIFF #### [place] [address] #### GFR #### [address] [address] Eosinophil %, Manual 0.0 % Normal 0.0-7.0 [facility] ([place] Comment on above: Performed By: #### A GINA, CBC, BMP, ADIFF #### [place] [address] #### GFR #### [address] [address] Eosinophil, Abs Manual 0.00 10 3/mcL Normal 0.00-0.40 [facility] ([place] Comment on above: Performed By: #### A GINA, CBC, BMP, ADIFF #### [place] [address] #### GFR #### [address] [address] Lymphocyte %, Manual 12.0 % Normal 10.0-50.0 [facility] ([place] Comment on above: Performed By: #### A GINA, CBC, BMP, ADIFF #### [place] [address] #### GFR #### [address] [address] Lymphocyte, Abs Manual 1.70 10 3/mcL Normal 0.77-3.85 [facility] ([place] Comment on above: Performed By: #### A GINA, CBC, BMP, ADIFF #### [place] [address] #### GFR #### [address] [address] Metamyelocyte 2.0 % Normal [facility] ([place]) Comment on above: Performed By: #### A GINA, CBC, BMP, ADIFF #### [place] [address] #### GFR #### [address] [address] Monocyte %, Manual 7.0 % Normal 1.7-13.0 [facility] ([place] Comment on above: Performed By: #### A GINA, CBC, BMP, ADIFF #### [place] [address] #### GFR #### [address] [address] Monocyte, Abs Manual 1.00 10 3/mcL Normal 0.15-1.00 [facility] ([place]) Comment on above: Performed By: #### A GINA, CBC, BMP, ADIFF #### [place] [address] #### GFR #### [address] [address] Neutrophil %, Manual 74.0 % Normal 37.0-80.0 [facility] ([place] Comment on above: Performed By: #### A GINA, CBC, BMP, ADIFF #### [place] [address] #### GFR #### [address] [address] Neutrophil, Abs Manual 12.10 10 3/mcL High 2.85-6.16 [facility] ([place]) Comment on above: Performed By: #### A GINA, CBC, BMP, ADIFF #### [address] [address] #### GFR #### [address] [address] .Morphon 01-10-2021 Anisocytosis Ql (Bld) Slight Normal [facility] [place] Comment on above: Performed By: #### A GINA, CBC, BMP, ADIFF #### [place] [address] #### GFR #### [place] [address] Ovalocytes Few Normal [facility] [place] Comment on above: Performed By: #### A GINA, CBC, BMP, ADIFF #### [address] [address] #### GFR #### [place] [address] Platelet Estimate Normal [facility] ([place] Comment on above: Performed By: #### A GINA, CBC, BMP, ADIFF #### [address] [address] #### GFR #### [place] [address] Toxic Gran Slight Normal [facility] [place] Comment on above: Performed By: #### A GINA, CBC, BMP, ADIFF #### [address] [address] #### GFR #### [address] 01-10-2021 BUN/Creatinine Ratio 22 ratio Normal 7-27 [facility] ([place] Comment on above: Performed By: #### A GINA, CBC, BMP, ADIFF #### [address] [address] #### GFR #### [place] [address] Calcium [Mass/Vol] 8.7 mg/dL Normal 8.4-10.2 [facility] ([place] Comment on above: Performed By: #### A GINA, CBC, BMP, ADIFF #### [address] [address] #### GFR #### [address] [address] Chloride [Moles/Vol] 105 mmol/L Normal 98-107 [facility] ([place] Comment on above: Performed By: #### A GINA, CBC, BMP, ADIFF #### [address] [address] #### GFR #### [address] [address] CO2 [Moles/Vol] 27 mmol/L Normal 22-29 [facility] [place] Comment on above: Performed By: #### A GINA, CBC, BMP, ADIFF #### [place] [address] #### GFR #### [address] [address] Creatinine [Mass/Vol] 1.10 mg/dL Normal 0.70-1.30 [facility] [place] Comment on above: Performed By: #### A GINA, CBC, BMP, ADIFF #### [address] [address] #### GFR #### [address] [address] Electrolyte Balance 10.0 mEq/L Normal [facility] [place] ([place] Comment on above: Performed By: #### A GINA, CBC, BMP, ADIFF #### [address] [address] #### GFR #### [address] [address] Glucose [Mass/Vol] 116 mg/dL High 70-105 [facility] ([place] Comment on above: Performed By: #### A GINA, CBC, BMP, ADIFF #### [address] [address] #### GFR #### [address] [address] Potassium [Moles/Vol] 4.3 mmol/L Normal 3.5-5.1 [facility] ([place] Comment on above: Performed By: #### A GINA, CBC, BMP, ADIFF #### [address] [address] #### GFR #### [address] [address] Sodium [Moles/Vol] 142 mmol/L Normal 136-145 [facility] ([place] Comment on above: Performed By: #### A GINA, CBC, BMP, ADIFF #### [address] [address] #### GFR #### [place] [address] Urea nitrogen [Mass/Vol] 24 mg/dL High 7-18 [facility] ([place] Comment on above: Performed By: #### A GINA, CBC, BMP, ADIFF #### [address] [address] #### GFR #### [place] [address] CBCon 01-10-2021 Erythrocyte distribution width (RBC) [Ratio] 17.3 % High 11.5-14.5 [facility] ([place] Comment on above: Performed By: #### A GINA, CBC, BMP, ADIFF #### [place] [address] #### GFR #### [address] [address] Hematocrit (Bld) [Volume fraction] 42.1 % Normal 42.0-52.0 [facility] ([place] Comment on above: Performed By: #### A GINA, CBC, BMP, ADIFF #### [address] [address] #### GFR #### [place] [address] Hgb 14.0 G/dL Normal 14.0-18.0 [facility] ([place] Comment on above: Performed By: #### A GINA, CBC, BMP, ADIFF #### [address] [address] #### GFR #### [address] [address] MCH (RBC) [Entitic mass] 28.0 pg Normal 27.0-31.2 [facility] [place] Comment on above: Performed By: #### A GINA, CBC, BMP, ADIFF #### [address] [address] #### GFR #### [place] [address] MCHC 33.2 G/dL Normal 31.8-35.4 [facility] [place] Comment on above: Performed By: #### A GINA, CBC, BMP, ADIFF #### [place] [address] #### GFR #### [place] [address] MCV (RBC) [Entitic vol] 84.4 fL Normal 80.0-94.0 [facility] [place] Comment on above: Performed By: #### A GINA, CBC, BMP, ADIFF #### [address] [address] #### GFR #### [place] [address] Platelet 259 10 3/mcL Normal 130-400 [facility] [place] Comment on above: Performed By: #### A GINA, CBC, BMP, ADIFF #### [place] [address] #### GFR #### [place] [id number] Platelet mean volume (Bld) [Entitic vol] 8.5 fL Normal 7.4-10.4 [facility] [place] Comment on above: Performed By: #### A GINA, CBC, BMP, ADIFF #### [place] [address] #### GFR #### [place] [address] RBC 4.98 10 6/mcL Normal 4.04-6.13 [facility] [place] Comment on above: Performed By: #### A GINA, CBC, BMP, ADIFF #### [place] [address] #### GFR #### [place] [address] WBC 14.90 10 3/mcL High 4.60-10.80 [facility] [place] Comment on above: Performed By: #### A GINA, CBC, BMP, ADIFF #### [place] [address] #### GFR #### [place] [address] CRPon 01-10-2021 C-Reactive Protein 2.0 mg/dL High 0.0-0.9 [facility] [place] Comment on above: Performed By: #### A GINA, CBC, BMP, ADIFF #### [place] [address] #### GFR #### [place] [address] DIMERon 01-10-2021 D-Dimer 321 ng/mL D-DU High 0-230 [facility] [place] Comment on above: Result Comment: The result of the D-Dimer test should be evaluated in the context of all the clinical and laboratory data available. In those instances where the laboratory result does not agree with the clinical evaluation, additional tests should be performed accordingly. If the D-Dimer result is used to exclude DVT or PE, the recommended cutoff value is less than 230 ng/mL. The D-Dimer result should not be used alone to rule in DVT/PE, but should be used in conjunction with a clinical pretest probability (PTP)assessment model to exclude venous thromboembolism (VTE) in outpatients suspected of deep venous thrombosis (DVT) and pulmonary embolism (PE). Performed By: #### P BNP #### [place] [id number] #### BMP, GFR #### [address] [address] Melva 01-10-2021 Ferritin [Mass/Vol] 264.1 ng/mL Normal 26.0-388.0 [facility] ([place] Comment on above: Performed By: #### C MP, GFR, TSH, LIPID #### [place] [address] #### CBC, ANEU, PBNP, ADIFF #### [address] [address] FIBon 01-10-2021 Fibrinogen 554 mg/dL Normal 292-711 [facility] [place] Comment on above: Performed By: #### A GINA, CBC, BMP, ADIFF #### [address] [address] #### GFR #### [place] [address] LDHon 01-10-2021 LDH 443 U/L High 85-227 [facility] [place] Comment on above: Performed By: #### A GINA, CBC, BMP, ADIFF #### [address] [address] #### GFR #### [address] [address] MGon 01-10-2021 Magnesium [Mass/Vol] 1.7 mg/dL Low 1.8-2.4 [facility] ([place] Comment on above: Performed By: #### A GINA, CBC, BMP, ADIFF #### [address] [address] #### GFR #### [place] [address] PROon 01-10-2021 INR Coag (PPP) [Relative time] 0.9 {INR} Normal 0.9-1.2 [facility] [place] Comment on above: Result Comment: Yohannes dard Dose 2.0 - 3.0 High Dose 2.5 - 3.5 The recommended therapeutic range for oral anticoagulant therapy is: LOW RISK: Prophylaxis of venous thrombosis INR: 2.0 - 3.0 Treatment of pulmonary embolism 2.0 - 3.0 Prevention of systemic embolism 2.0 - 3.0 HIGH RISK: Mechanical prosthetic valves 2.5 - 3.5 Performed By: #### A GINA, CBC, BMP, ADIFF #### [place] [address] #### GFR #### [place] [address] PT Coag (PPP) [Time] 11.3 s Normal 9.7-14.7 [facility] [place] Comment on above: Performed By: #### A GINA, CBC, BMP, ADIFF #### [place] [address] #### GFR #### [place] [address] TROPHSon 01-10-2021 Troponin I High Sensitivity 14.5 ng/L Normal 0.0-76.2 [facility] [place] Comment on above: Performed By: #### A GINA, CBC, BMP, ADIFF #### [place] [address] #### GFR #### [place] [address] .Auto Diffon 01-09-2021 Basophil, Absolute 0.10 10 3/mcL Normal 0.00-0.19 [facility] [place] Comment on above: Performed By: #### A GINA, CBC, BMP, ADIFF #### [place] [address] #### GFR #### [place] [address] Basophils/100 WBC (Bld) 0.5 % Normal 0.0-2.5 [facility] [place] Comment on above: Performed By: #### A GINA, CBC, BMP, ADIFF #### [place] [address] #### GFR #### [facility] [address] [place], [place] [address] Eosinophil, Absolute 0.00 10 3/mcL Normal 0.00-0.40 [facility] [place] Comment on above: Performed By: #### A GINA, CBC, BMP, ADIFF #### [place] [address] #### GFR #### [address] [address] Eosinophils/100 WBC (Bld) 0.0 % Normal 0.0-7.0 [facility] ([place]) Comment on above: Performed By: #### A GINA, CBC, BMP, ADIFF #### [place] [address] #### GFR #### [address] [address] Lymphocyte, Absolute 0.90 10 3/mcL Normal 0.77-3.85 [facility] [place] Comment on above: Performed By: #### A GINA, CBC, BMP, ADIFF #### [place] [address] #### GFR #### [address] [address] Lymphocytes/100 WBC (Bld) 8.2 % Low 10.0-50.0 [facility] [place] Comment on above: Performed By: #### A GINA, CBC, BMP, ADIFF #### [place] [address] #### GFR #### [address] [address] Monocyte, Absolute 1.10 10 3/mcL High 0.15-1.00 [facility] ([place]) Comment on above: Performed By: #### A GINA, CBC, BMP, ADIFF #### [place] [address] #### GFR #### [address] [address] Monocytes/100 WBC (Bld) 10.9 % Normal 1.7-13.0 [facility] ([place]) Comment on above: Performed By: #### A GINA, CBC, BMP, ADIFF #### [address] [address] #### GFR #### [address] [address] Neutrophils/100 WBC (Bld) 80.4 % High 37.0-80.0 [facility] [place] Comment on above: Performed By: #### A GINA, CBC, BMP, ADIFF #### [address] [address] #### GFR #### [address] [address] .GFRon 01-09-2021 GFR 86 ml/min/1.73sqm Normal [facility] [place] Comment on above: Result Comment: GFR Population mean for , Non- Americans Ages 20-29 = 116 mL/min/1.73 sq.m. Ages 30-39 = 107 mL/min/1.73 sq.m. Ages 40-49 = 99 mL/min/1.73 sq.m. Ages 50-59 = 93 mL/min/1.73 sq.m. Ages 60-69 = 85 mL/min/1.73 sq.m. Ages 70+ = 75 mL/min/1.73 sq.m. Chronic Kidney Disease: Less than 60 mL/min/1.73 square meters End Stage Renal Disease: Less than 15 mL/min/1.73 square meters Performed By: #### A GINA, CBC, BMP, ADIFF #### [address] [address] #### GFR #### [address] [address] GFR Non- 71 ml/min/1.73sqm Normal [facility] [place] Comment on above: Result Comment: GFR Population mean for , Non- Americans Ages 20-29 = 116 mL/min/1.73 sq.m. Ages 30-39 = 107 mL/min/1.73 sq.m. Ages 40-49 = 99 mL/min/1.73 sq.m. Ages 50-59 = 93 mL/min/1.73 sq.m. Ages 60-69 = 85 mL/min/1.73 sq.m. Ages 70+ = 75 mL/min/1.73 sq.m. Chronic Kidney Disease: Less than 60 mL/min/1.73 square meters End Stage Renal Disease: Less than 15 mL/min/1.73 square meters Performed By: #### A GINA, CBC, BMP, ADIFF #### [address] [address] #### GFR #### [address] [address] .NEUABSon 01-09-2021 Neutrophil, Absolute 8.40 10 3/mcL High 2.85-6.16 [facility] [place] Comment on above: Performed By: #### A GINA, CBC, BMP, ADIFF #### [address] [address] #### GFR #### [place] [address] BMPon 01-09-2021 BUN/Creatinine Ratio 24 ratio Normal 7-27 [facility] ([place] Comment on above: Performed By: #### A GINA, CBC, BMP, ADIFF #### [address] [address] #### GFR #### [address] [address] Calcium [Mass/Vol] 8.3 mg/dL Low 8.4-10.2 [facility] [place] Comment on above: Performed By: #### A GINA, CBC, BMP, ADIFF #### [address] [address] #### GFR #### [address] [address] Chloride [Moles/Vol] 102 mmol/L Normal 98-107 [facility] [place] Comment on above: Performed By: #### A GINA, CBC, BMP, ADIFF #### [address] [address] #### GFR #### [address] [address] CO2 [Moles/Vol] 28 mmol/L Normal 22-29 [facility] [place] Comment on above: Performed By: #### A GINA, CBC, BMP, ADIFF #### [address] [address] #### GFR #### [address] [address] Creatinine [Mass/Vol] 1.10 mg/dL Normal 0.70-1.30 [facility] [place] Comment on above: Performed By: #### A GINA, CBC, BMP, ADIFF #### [address] [address] #### GFR #### [address] [address] Electrolyte Balance 8.0 mEq/L Normal [facility] ([place] Comment on above: Performed By: #### A GINA, CBC, BMP, ADIFF #### [address] [address] #### GFR #### [address] [address] Glucose [Mass/Vol] 125 mg/dL High 70-105 [facility] [place] Comment on above: Performed By: #### A GINA, CBC, BMP, ADIFF #### [address] [address] #### GFR #### [address] [address] Potassium [Moles/Vol] 4.2 mmol/L Normal 3.5-5.1 [facility] [place] Comment on above: Performed By: #### A GINA, CBC, BMP, ADIFF #### [address] [address] #### GFR #### [address] [address] Sodium [Moles/Vol] 138 mmol/L Normal 136-145 [facility] [place] Comment on above: Performed By: #### A GINA, CBC, BMP, ADIFF #### [address] [address] #### GFR #### [address] [address] Urea nitrogen [Mass/Vol] 26 mg/dL High 7-18 [facility] [place] Comment on above: Performed By: #### A GINA, CBC, BMP, ADIFF #### [address] [address] #### GFR #### [address] [address] CBCon 01-09-2021 Erythrocyte distribution width (RBC) [Ratio] 17.2 % High 11.5-14.5 [facility] [place] Comment on above: Performed By: #### A GINA, CBC, BMP, ADIFF #### [address] [address] #### GFR #### [place] [address] Hematocrit (Bld) [Volume fraction] 42.5 % Normal 42.0-52.0 [facility] [place] Comment on above: Performed By: #### A GINA, CBC, BMP, ADIFF #### [place] [address] #### GFR #### [address] [address] Hgb 14.3 G/dL Normal 14.0-18.0 [facility] [place] Comment on above: Performed By: #### A GINA, CBC, BMP, ADIFF #### [address] [address] #### GFR #### [address] [address] MCH (RBC) [Entitic mass] 28.2 pg Normal 27.0-31.2 [facility] [place] Comment on above: Performed By: #### A GINA, CBC, BMP, ADIFF #### [place] [id number] #### GFR #### [address] [address] MCHC 33.5 G/dL Normal 31.8-35.4 [facility] [place] Comment on above: Performed By: #### A GINA, CBC, BMP, ADIFF #### [place] [address] #### GFR #### [place] [id number] MCV (RBC) [Entitic vol] 84.1 fL Normal 80.0-94.0 [facility] [place] Comment on above: Performed By: #### A GINA, CBC, BMP, ADIFF #### [place] [address] #### GFR #### [place] [address] Platelet 265 10 3/mcL Normal 130-400 [facility] [place] Comment on above: Performed By: #### A GINA, CBC, BMP, ADIFF #### [place] [address] #### GFR #### [place] [address] Platelet mean volume (Bld) [Entitic vol] 9.5 fL Normal 7.4-10.4 [facility] [place] Comment on above: Performed By: #### A GINA, CBC, BMP, ADIFF #### [place] [address] #### GFR #### [place] [address] RBC 5.06 10 6/mcL Normal 4.04-6.13 [facility] [place] Comment on above: Performed By: #### A GINA, CBC, BMP, ADIFF #### [place] [address] #### GFR #### [place] [address] WBC 10.50 10 3/mcL Normal 4.60-10.80 [facility] [place] Comment on above: Performed By: #### A GINA, CBC, BMP, ADIFF #### [address] [address] #### GFR #### [address] [address] CRPon 01-09-2021 C-Reactive Protein 3.3 mg/dL High 0.0-0.9 [facility] [place] Comment [place] above: Performed By: #### C MP, GFR, TSH, LIPID #### [place] [address] #### CBC, ANEU, PBNP, ADIFF #### [place] [address] DIMERon 01-09-2021 D-Dimer 311 ng/mL D-DU High 0-230 [facility] [place] Comment on above: Result Comment: The result of the D-Dimer test should be evaluated in the context of all the clinical and laboratory data available. In those instances where the laboratory result does not agree with the clinical evaluation, additional tests should be performed accordingly. If the D-Dimer result is used to exclude DVT or PE, the recommended cutoff value is less than 230 ng/mL. The D-Dimer result should not be used alone to rule in DVT/PE, but should be used in conjunction with a clinical pretest probability (PTP)assessment model to exclude venous thromboembolism (VTE) in outpatients suspected of deep venous thrombosis (DVT) and pulmonary embolism (PE). Performed By: #### A GINA, CBC, BMP, ADIFF #### [address] [address] #### GFR #### [address] [address] FIBon 01-09-2021 Fibrinogen 610 mg/dL Normal 292-711 [facility] [place] Comment [place] above: Performed By: #### C MP, GFR, TSH, LIPID #### [address] [address] #### CBC, ANEU, PBNP, ADIFF #### [address] [address] LDHon 01-09-2021 LDH 447 U/L High 85-227 [facility] [place] Comment [place] above: Performed By: #### C MP, GFR, TSH, LIPID #### [address] [address] #### CBC, ANEU, PBNP, ADIFF #### [address] [address] MGon 01-09-2021 Magnesium [Mass/Vol] 1.9 mg/dL Normal 1.8-2.4 [facility] ([place] Comment [place] above: Performed By: #### C MP, GFR, TSH, LIPID #### [place] [address] #### CBC, ANEU, PBNP, ADIFF #### [address] [address] PROon 01-09-2021 INR Coag (PPP) [Relative time] 1.0 {INR} Normal 0.9-1.2 [facility] [place] Comment on above: Result Comment: Yohannes dard Dose 2.0 - 3.0 High Dose 2.5 - 3.5 The recommended therapeutic range for oral anticoagulant therapy is: LOW RISK: Prophylaxis of venous thrombosis INR: 2.0 - 3.0 Treatment of pulmonary embolism 2.0 - 3.0 Prevention of systemic embolism 2.0 - 3.0 HIGH RISK: Mechanical prosthetic valves 2.5 - 3.5 Performed By: #### C MP, GFR, TSH, LIPID #### [place] [address] #### CBC, ANEU, PBNP, ADIFF #### [address] [address] PT Coag (PPP) [Time] 11.5 s Normal 9.7-14.7 [facility] [place] Comment [place] above: Performed By: #### C MP, GFR, TSH, LIPID #### [address] [address] #### CBC, ANEU, PBNP, ADIFF #### [address] [address] TROPHSon 01-09-2021 Troponin I High Sensitivity 17.7 ng/L Normal 0.0-76.2 [facility] [place] Comment on above: Performed By: #### C MP, GFR, TSH, LIPID #### [address] [address] #### CBC, ANEU, PBNP, ADIFF #### [address] [address] .Auto Diffon 01-08-2021 Basophil, Absolute 0.00 10 3/mcL Normal 0.00-0.19 [facility] [place] Comment on above: Performed By: #### A GINA, CBC, BMP, ADIFF #### [place] [address] #### GFR #### [address] [address] Basophils/100 WBC (Bld) 0.4 % Normal 0.0-2.5 [facility] [place] Comment on above: Performed By: #### A GINA, CBC, BMP, ADIFF #### [place] [address] #### GFR #### [address] [address] Eosinophil, Absolute 0.00 10 3/mcL Normal 0.00-0.40 [facility] [place] Comment on above: Performed By: #### A GINA, CBC, BMP, ADIFF #### [place] [address] #### GFR #### [address] [address] Eosinophils/100 WBC (Bld) 0.0 % Normal 0.0-7.0 [facility] [place] Comment on above: Performed By: #### A GINA, CBC, BMP, ADIFF #### [place] [address] #### GFR #### [address] [address] Lymphocyte, Absolute 0.60 10 3/mcL Low 0.77-3.85 [facility] [place] Comment on above: Performed By: #### A GINA, CBC, BMP, ADIFF #### [address] [address] #### GFR #### [address] [address] Lymphocytes/100 WBC (Bld) 5.5 % Low 10.0-50.0 [facility] [place] Comment on above: Performed By: #### A GINA, CBC, BMP, ADIFF #### [address] [address] #### GFR #### [address] [address] Monocyte, Absolute 0.80 10 3/mcL Normal 0.15-1.00 [facility] [place] Comment on above: Performed By: #### A GINA, CBC, BMP, ADIFF #### [address] [address] #### GFR #### [address] [address] Monocytes/100 WBC (Bld) 7.6 % Normal 1.7-13.0 [facility] [place] Comment on above: Performed By: #### A GINA, CBC, BMP, ADIFF #### [address] [address] #### GFR #### [address] [address] Neutrophils/100 WBC (Bld) 86.5 % High 37.0-80.0 [facility] [place] Comment on above: Performed By: #### A GINA, CBC, BMP, ADIFF #### [address] [address] #### GFR #### [address] [address] .GFRon 01-08-2021 GFR 75 ml/min/1.73sqm Normal [facility] [place] Comment on above: Result Comment: GFR Population mean for , Non- Americans Ages 20-29 = 116 mL/min/1.73 sq.m. Ages 30-39 = 107 mL/min/1.73 sq.m. Ages 40-49 = 99 mL/min/1.73 sq.m. Ages 50-59 = 93 mL/min/1.73 sq.m. Ages 60-69 = 85 mL/min/1.73 sq.m. Ages 70+ = 75 mL/min/1.73 sq.m. Chronic Kidney Disease: Less than 60 mL/min/1.73 square meters End Stage Renal Disease: Less than 15 mL/min/1.73 square meters Performed By: #### A GINA, CBC, BMP, ADIFF #### [address] [address] #### GFR #### [address] [address] GFR Non- 62 ml/min/1.73sqm Normal [facility] [place] Comment on above: Result Comment: GFR Population mean for , Non- Americans Ages 20-29 = 116 mL/min/1.73 sq.m. Ages 30-39 = 107 mL/min/1.73 sq.m. Ages 40-49 = 99 mL/min/1.73 sq.m. Ages 50-59 = 93 mL/min/1.73 sq.m. Ages 60-69 = 85 mL/min/1.73 sq.m. Ages 70+ = 75 mL/min/1.73 sq.m. Chronic Kidney Disease: Less than 60 mL/min/1.73 square meters End Stage Renal Disease: Less than 15 mL/min/1.73 square meters Performed By: #### A GINA, CBC, BMP, ADIFF #### [address] [address] #### GFR #### [address] [address] .NEUABSon 01-08-2021 Neutrophil, Absolute 8.70 10 3/mcL High 2.85-6.16 [facility] [place] Comment on above: Performed By: #### A GINA, CBC, BMP, ADIFF #### [address] [address] #### GFR #### [address] [address] BMPon 01-08-2021 BUN/Creatinine Ratio 25 ratio Normal 7-27 [facility] ([place] Comment on above: Performed By: #### A GINA, CBC, BMP, ADIFF #### [address] [address] #### GFR #### [address] [address] Calcium [Mass/Vol] 8.1 mg/dL Low 8.4-10.2 [facility] [place] Comment on above: Performed By: #### A GINA, CBC, BMP, ADIFF #### [address] [address] #### GFR #### [address] [address] Chloride [Moles/Vol] 98 mmol/L Normal 98-107 [facility] [place] Comment on above: Performed By: #### A GINA, CBC, BMP, ADIFF #### [address] [address] #### GFR #### [address] [address] CO2 [Moles/Vol] 28 mmol/L Normal 22-29 [facility] [place] Comment on above: Performed By: #### A GINA, CBC, BMP, ADIFF #### [address] [address] #### GFR #### [address] [address] Creatinine [Mass/Vol] 1.24 mg/dL Normal 0.70-1.30 [facility] [place] Comment on above: Performed By: #### A GINA, CBC, BMP, ADIFF #### [address] [address] #### GFR #### [address] [address] Electrolyte Balance 9.0 mEq/L Normal [facility] ([place] Comment on above: Performed By: #### A GINA, CBC, BMP, ADIFF #### [address] [address] #### GFR #### [address] [address] Glucose [Mass/Vol] 119 mg/dL High 70-105 [facility] [place] Comment on above: Performed By: #### A GINA, CBC, BMP, ADIFF #### [address] [address] #### GFR #### [address] [address] Potassium [Moles/Vol] 4.2 mmol/L Normal 3.5-5.1 [facility] [place] Comment on above: Performed By: #### A GINA, CBC, BMP, ADIFF #### [address] [address] #### GFR #### [address] [address] Sodium [Moles/Vol] 135 mmol/L Low 136-145 [facility] [place] Comment on above: Performed By: #### A GINA, CBC, BMP, ADIFF #### [address] [address] #### GFR #### [address] [address] Urea nitrogen [Mass/Vol] 31 mg/dL High 7-18 [facility] [place] Comment on above: Performed By: #### A GINA, CBC, BMP, ADIFF #### [address] [address] #### GFR #### [address] [address] CBCon 01-08-2021 Erythrocyte distribution width (RBC) [Ratio] 17.5 % High 11.5-14.5 [facility] [place] Comment on above: Performed By: #### A GINA, CBC, BMP, ADIFF #### [address] [address] #### GFR #### [address] [address] Hematocrit (Bld) [Volume fraction] 41.2 % Low 42.0-52.0 [facility] [place] Comment on above: Performed By: #### A GINA, CBC, BMP, ADIFF #### [address] [address] #### GFR #### [place] [address] Hgb 13.5 G/dL Low 14.0-18.0 [facility] [place] Comment on above: Performed By: #### A GINA, CBC, BMP, ADIFF #### [place] [address] #### GFR #### [place] [address] MCH (RBC) [Entitic mass] 27.4 pg Normal 27.0-31.2 [facility] [place] Comment on above: Performed By: #### A GINA, CBC, BMP, ADIFF #### [place] [address] #### GFR #### [place] [address] MCHC 32.7 G/dL Normal 31.8-35.4 [facility] [place] Comment on above: Performed By: #### A GINA, CBC, BMP, ADIFF #### [place] [address] #### GFR #### [place] [address] MCV (RBC) [Entitic vol] 83.8 fL Normal 80.0-94.0 [facility] [place] Comment on above: Performed By: #### A GINA, CBC, BMP, ADIFF #### [place] [address] #### GFR #### [place] [address] Platelet 219 10 3/mcL Normal 130-400 [facility] ([place]) Comment on above: Performed By: #### A GINA, CBC, BMP, ADIFF #### [address] [address] #### GFR #### [place] [address] Platelet mean volume (Bld) [Entitic vol] 9.1 fL Normal 7.4-10.4 [facility] [place] Comment on above: Performed By: #### A GINA, CBC, BMP, ADIFF #### [place] [address] #### GFR #### [place] [address] RBC 4.91 10 6/mcL Normal 4.04-6.13 [facility] [place] Comment on above: Performed By: #### A GINA, CBC, BMP, ADIFF #### [place] [address] #### GFR #### [place] [address] WBC 10.10 10 3/mcL Normal 4.60-10.80 [facility] [place] Comment on above: Performed By: #### A GINA, CBC, BMP, ADIFF #### [address] [address] #### GFR #### [place] [address] CRPon 01-08-2021 C-Reactive Protein 5.0 mg/dL High 0.0-0.9 [facility] [place] Comment on above: Performed By: #### A GINA, CBC, BMP, ADIFF #### [address] [address] #### GFR #### [place] [address] DIMERon 01-08-2021 D-Dimer 446 ng/mL D-DU High 0-230 [facility] ([place] Comment on above: Result Comment: The result of the D-Dimer test should be evaluated in the context of all the clinical and laboratory data available. In those instances where the laboratory result does not agree with the clinical evaluation, additional tests should be performed accordingly. If the D-Dimer result is used to exclude DVT or PE, the recommended cutoff value is less than 230 ng/mL. The D-Dimer result should not be used alone to rule in DVT/PE, but should be used in conjunction with a clinical pretest probability (PTP)assessment model to exclude venous thromboembolism (VTE) in outpatients suspected of deep venous thrombosis (DVT) and pulmonary embolism (PE). Performed By: #### A GINA, CBC, BMP, ADIFF #### [place] [address] #### GFR #### [place] [address] Melva 01-08-2021 Ferritin [Mass/Vol] 344.9 ng/mL Normal 26.0-388.0 [facility] ([place]) Comment on above: Performed By: #### A GINA, CBC, BMP, ADIFF #### [place] [address] #### GFR #### [place] [address] FIBon 01-08-2021 Fibrinogen 564 mg/dL Normal 292-711 [facility] ([place] Comment on above: Performed By: #### A GINA, CBC, BMP, ADIFF #### [place] [address] #### GFR #### [place] [address] LDHon 01-08-2021 LDH 460 U/L High 85-227 [facility] ([place] Comment on above: Performed By: #### A GINA, CBC, BMP, ADIFF #### [place] [address] #### GFR #### [place] [address] MGon 01-08-2021 Magnesium [Mass/Vol] 2.1 mg/dL Normal 1.8-2.4 [facility] ([place] Comment on above: Performed By: #### A GINA, CBC, BMP, ADIFF #### [place] [address] #### GFR #### [place] [address] PROon 01-08-2021 INR Coag (PPP) [Relative time] 0.9 {INR} Normal 0.9-1.2 [facility] ([place] Comment on above: Result Comment: Yohannes dard Dose 2.0 - 3.0 High Dose 2.5 - 3.5 The recommended therapeutic range for oral anticoagulant therapy is: LOW RISK: Prophylaxis of venous thrombosis INR: 2.0 - 3.0 Treatment of pulmonary embolism 2.0 - 3.0 Prevention of systemic embolism 2.0 - 3.0 HIGH RISK: Mechanical prosthetic valves 2.5 - 3.5 Performed By: #### A GINA, CBC, BMP, ADIFF #### [place] [address] #### GFR #### [place] [address] PT Coag (PPP) [Time] 11.3 s Normal 9.7-14.7 [facility] ([place] Comment on above: Performed By: #### A GINA, CBC, BMP, ADIFF #### [place] [address] #### GFR #### [place] [address] TROPHSon 01-08-2021 Troponin I High Sensitivity 30.9 ng/L Normal 0.0-76.2 [facility] ([place] Comment on above: Performed By: #### A GINA, CBC, BMP, ADIFF #### [place] [address] #### GFR #### [place] [address] .GFRon 01-07-2021 GFR Non- 49 ml/min/1.73sqm Normal [facility] ([place] Comment on above: Result Comment: GFR Population mean for , Non- Americans Ages 20-29 = 116 mL/min/1.73 sq.m. Ages 30-39 = 107 mL/min/1.73 sq.m. Ages 40-49 = 99 mL/min/1.73 sq.m. Ages 50-59 = 93 mL/min/1.73 sq.m. Ages 60-69 = 85 mL/min/1.73 sq.m. Ages 70+ = 75 mL/min/1.73 sq.m. Chronic Kidney Disease: Less than 60 mL/min/1.73 square meters End Stage Renal Disease: Less than 15 mL/min/1.73 square meters Performed By: #### P BNP #### [address] [address] #### BMP, GFR #### [address] [address] GFR 60 ml/min/1.73sqm Normal [facility] ([place] Comment on above: Result Comment: GFR Population mean for , Non- Americans Ages 20-29 = 116 mL/min/1.73 sq.m. Ages 30-39 = 107 mL/min/1.73 sq.m. Ages 40-49 = 99 mL/min/1.73 sq.m. Ages 50-59 = 93 mL/min/1.73 sq.m. Ages 60-69 = 85 mL/min/1.73 sq.m. Ages 70+ = 75 mL/min/1.73 sq.m. Chronic Kidney Disease: Less than 60 mL/min/1.73 square meters End Stage Renal Disease: Less than 15 mL/min/1.73 square meters Performed By: #### P BNP #### [address] [address] #### BMP, GFR #### [address] [address] .Manual Diffon 01-07-2021 Bands 25.0 % High 0.0-5.0 [facility] ([place] Comment on above: Performed By: #### P BNP #### [address] [address] #### BMP, GFR #### [address] [address] Basophil %, Manual 0.0 % Normal 0.0-2.5 [facility] ([place]) Comment on above: Performed By: #### P BNP #### [place] [address] #### BMP, GFR #### [address] [address] Basophil, Abs Manual 0.00 10 3/mcL Normal 0.00-0.19 [facility] ([place] Comment on above: Performed By: #### P BNP #### [place] [address] #### BMP, GFR #### [place] [address] Eosinophil %, Manual 0.0 % Normal 0.0-7.0 [facility] ([place] Comment on above: Performed By: #### P BNP #### [place] [address] #### BMP, GFR #### [place] [address] Eosinophil, Abs Manual 0.00 10 3/mcL Normal 0.00-0.40 [facility] ([place] Comment on above: Performed By: #### P BNP #### [place] [address] #### BMP, GFR #### [place] [address] Lymphocyte %, Manual 1.0 % Low 10.0-50.0 [facility] ([place] Comment on above: Performed By: #### P BNP #### [place] [address] #### BMP, GFR #### [place] [id number] Lymphocyte, Abs Manual 0.10 10 3/mcL Low 0.77-3.85 [facility] ([place] Comment on above: Performed By: #### P BNP #### [place] [address] #### BMP, GFR #### [address] [address] Metamyelocyte 1.0 % Normal [facility] ([place] Comment on above: Performed By: #### P BNP #### [place] [address] #### BMP, GFR #### [address] [address] Monocyte %, Manual 3.0 % Normal 1.7-13.0 [facility] ([place] Comment on above: Performed By: #### P BNP #### [place] [address] #### BMP, GFR #### [place] [id number] Monocyte, Abs Manual 0.36 10 3/mcL Normal 0.15-1.00 [facility] ([place] Comment on above: Performed By: #### P BNP #### [place] [address] #### BMP, GFR #### [place] [address] Neutrophil %, Manual 70.0 % Normal 37.0-80.0 [facility] ([place] Comment on above: Performed By: #### P BNP #### [place] [address] #### BMP, GFR #### [address] [address] Neutrophil, Abs Manual 11.60 10 3/mcL High 2.85-6.16 [facility] ([place] Comment on above: Performed By: #### P BNP #### [place] [address] #### BMP, GFR #### [place] [address] .Morphon 01-07-2021 Anisocytosis Ql (Bld) Slight Normal [facility] ([place] Comment on above: Performed By: #### P BNP #### [place] [address] #### BMP, GFR #### [address] [address] Ovalocytes Few Normal [facility] ([place] Comment on above: Performed By: #### P BNP #### [address] [address] #### BMP, GFR #### [address] [address] Platelet Estimate Normal Normal [facility] ([place] Comment on above: Performed By: #### P BNP #### [address] [address] #### BMP, GFR #### [address] [address] Toxic Gran Slight Normal [facility] ([place] Comment on above: Performed By: #### P BNP #### [address] [address] #### BMP, GFR #### [address] [address] CBCon 01-07-2021 Erythrocyte distribution width (RBC) [Ratio] 17.2 % High 11.5-14.5 [facility] ([place] Comment on above: Performed By: #### P BNP #### [address] [address] #### BMP, GFR #### [address] [address] Hematocrit (Bld) [Volume fraction] 42.3 % Normal 42.0-52.0 [facility] ([place] Comment on above: Performed By: #### P BNP #### [address] [address] #### BMP, GFR #### [address] [address] Hgb 14.2 G/dL Normal 14.0-18.0 [facility] ([place] Comment on above: Performed By: #### P BNP #### [address] [address] #### BMP, GFR #### [place] [address] MCH (RBC) [Entitic mass] 27.7 pg Normal 27.0-31.2 [facility] ([place] Comment on above: Performed By: #### P BNP #### [place] [address] #### BMP, GFR #### [place] [address] MCHC 33.6 G/dL Normal 31.8-35.4 [facility] ([place] Comment on above: Performed By: #### P BNP #### [place] [address] #### BMP, GFR #### [place] [address] MCV (RBC) [Entitic vol] 82.7 fL Normal 80.0-94.0 [facility] ([place] Comment on above: Performed By: #### P BNP #### [place] [address] #### BMP, GFR #### [place] [address] Platelet 216 10 3/mcL Normal 130-400 [facility] ([place] Comment on above: Performed By: #### P BNP #### [place] [address] #### BMP, GFR #### [place] [address] Platelet mean volume (Bld) [Entitic vol] 9.4 fL Normal 7.4-10.4 [facility] ([place] Comment on above: Performed By: #### P BNP #### [place] [address] #### BMP, GFR #### [place] [address] RBC 5.12 10 6/mcL Normal 4.04-6.13 [facility] ([place] Comment on above: Performed By: #### P BNP #### [place] [address] #### BMP, GFR #### [address] [address] WBC 12.10 10 3/mcL High 4.60-10.80 [facility] ([place] Comment on above: Performed By: #### P BNP #### [place] [address] #### BMP, GFR #### [place] [address] CMPon 01-07-2021 Albumin Level 2.9 G/dL Low 3.5-5.0 [facility] ([place] Comment on above: Performed By: #### P BNP #### [place] [address] #### BMP, GFR #### [place] [address] Albumin/Globulin [Mass ratio] 0.7 {ratio} Low 1.1-2.5 [facility] ([place] Comment on above: Performed By: #### P BNP #### [place] [address] #### BMP, GFR #### [address] [address] ALP [Catalytic activity/Vol] 131 U/L Normal 40-135 [facility] ([place] Comment on above: Performed By: #### P BNP #### [place] [address] #### BMP, GFR #### [address] [address] ALT [Catalytic activity/Vol] 74 U/L High 16-63 [facility] ([place] Comment on above: Performed By: #### P BNP #### [place] [address] #### BMP, GFR #### [address] [address] AST [Catalytic activity/Vol] 87 U/L High 10-40 [facility] ([place] Comment on above: Performed By: #### P BNP #### [place] [id number] #### BMP, GFR #### [address] [address] Bili Total 0.5 mg/dL Normal 0.2-1.0 [facility] ([place] Comment on above: Result Comment: Use of this assay is not recommended for patients undergoing treatment with eltrombopag due to the potential for falsely elevated results. Performed By: #### P BNP #### [place] [address] #### BMP, GFR #### [address] [address] BUN/Creatinine Ratio 32 ratio High 7-27 [facility] ([place] Comment on above: Performed By: #### P BNP #### [place] [address] #### BMP, GFR #### [address] [address] Calcium [Mass/Vol] 8.3 mg/dL Low 8.4-10.2 [facility] ([place] Comment on above: Performed By: #### P BNP #### [place] [address] #### BMP, GFR #### [address] [address] Chloride [Moles/Vol] 96 mmol/L Low 98-107 [facility] ([place] Comment on above: Performed By: #### P BNP #### [place] [address] #### BMP, GFR #### [address] [address] CO2 [Moles/Vol] 29 mmol/L Normal 22-29 [facility] ([place] Comment on above: Performed By: #### P BNP #### [place] [id number] #### BMP, GFR #### [address] [address] Creatinine [Mass/Vol] 1.51 mg/dL High 0.70-1.30 [facility] ([place] Comment on above: Performed By: #### P BNP #### [address] [address] #### BMP, GFR #### [address] [address] Electrolyte Balance 8.0 mEq/L Normal [facility] ([place] Comment on above: Performed By: #### P BNP #### [address] [address] #### BMP, GFR #### [address] [address] Globulin 4.2 G/dL Normal [facility] ([place] Comment on above: Performed By: #### P BNP #### [address] [address] #### BMP, GFR #### [address] [address] Glucose [Mass/Vol] 138 mg/dL High 70-105 [facility] ([place] Comment on above: Performed By: #### P BNP #### [address] [address] #### BMP, GFR #### [address] [address] Potassium [Moles/Vol] 3.9 mmol/L Normal 3.5-5.1 [facility] ([place] Comment on above: Performed By: #### P BNP #### [address] [address] #### BMP, GFR #### [address] [address] Sodium [Moles/Vol] 133 mmol/L Low 136-145 [facility] ([place] Comment on above: Performed By: #### P BNP #### [address] [address] #### BMP, GFR #### [address] [address] Total Protein 7.1 G/dL Normal 6.4-8.2 [facility] ([place] Comment on above: Performed By: #### P BNP #### [address] [address] #### BMP, GFR #### [address] [address] Urea nitrogen [Mass/Vol] 48 mg/dL High 7-18 [facility] ([place] Comment on above: Performed By: #### P BNP #### [place] [address] #### BMP, GFR #### [address] [address] CRPon 01-07-2021 C-Reactive Protein 1.2 mg/dL High 0.0-0.9 [facility] ([place] Comment on above: Performed By: #### A GINA, CBC, BMP, ADIFF #### [place] [address] #### GFR #### [place] [address] DIMERon 01-07-2021 D-Dimer 335 ng/mL D-DU High 0-230 [facility] ([place] Comment on above: Result Comment: The result of the D-Dimer test should be evaluated in the context of all the clinical and laboratory data available. In those instances where the laboratory result does not agree with the clinical evaluation, additional tests should be performed accordingly. If the D-Dimer result is used to exclude DVT or PE, the recommended cutoff value is less than 230 ng/mL. The D-Dimer result should not be used alone to rule in DVT/PE, but should be used in conjunction with a clinical pretest probability (PTP)assessment model to exclude venous thromboembolism (VTE) in outpatients suspected of deep venous thrombosis (DVT) and pulmonary embolism (PE). Performed By: #### P BNP #### [place] [id number] #### BMP, GFR #### [address] [address] Melva 01-07-2021 Ferritin [Mass/Vol] 331.4 ng/mL Normal 26.0-388.0 [facility] ([place] Comment on above: Performed By: #### A GINA, CBC, BMP, ADIFF #### [address] [address] #### GFR #### [address] [address] FIBon 01-07-2021 Fibrinogen 592 mg/dL Normal 292-711 [facility] ([place] Comment on above: Performed By: #### A GINA, CBC, BMP, ADIFF #### [address] [address] #### GFR #### [address] [address] LDHon 01-07-2021 LDH 495 U/L High 85-227 [facility] ([place] Comment on above: Performed By: #### A GINA, CBC, BMP, ADIFF #### [address] [address] #### GFR #### [address] [address] LIPIDon 01-07-2021 Cholesterol [Mass/Vol] 82 mg/dL Normal 0-200 [facility] ([place] Comment on above: Result Comment: Chol esterol Reference Interval: Less than 200 Desirable 200-239 Borderline high risk 240 and above High risk Performed By: #### P BNP #### [address] [address] #### BMP, GFR #### [address] [address] Cholesterol in HDL [Mass/Vol] 27 mg/dL Low 40-60 [facility] ([place] Comment on above: Performed By: #### P BNP #### [address] [address] #### BMP, GFR #### [address] [address] Cholesterol in LDL [Mass/Vol] 38 mg/dL Normal 0-130 [facility] ([place] Comment on above: Performed By: #### P BNP #### [place] [id number] #### BMP, GFR #### [place] [address] Triglyceride [Mass/Vol] 85 mg/dL Normal 0-150 [facility] ([place] Comment on above: Result Comment: Trig lyceride Reference Interval: Less than 150 Normal 150-199 Borderline high risk 200-499 High risk 500 or higher Very high risk Performed By: #### P BNP #### [place] [address] #### BMP, GFR #### [place] [address] MGon 01-07-2021 Magnesium [Mass/Vol] 2.5 mg/dL High 1.8-2.4 [facility] ([place] Comment on above: Performed By: #### A GINA, CBC, BMP, ADIFF #### [place] [address] #### GFR #### [place] [address] PROon 01-07-2021 INR Coag (PPP) [Relative time] 0.9 {INR} Normal 0.9-1.2 [facility] ([place] Comment on above: Result Comment: Yohannes dard Dose 2.0 - 3.0 High Dose 2.5 - 3.5 The recommended therapeutic range for oral anticoagulant therapy is: LOW RISK: Prophylaxis of venous thrombosis INR: 2.0 - 3.0 Treatment of pulmonary embolism 2.0 - 3.0 Prevention of systemic embolism 2.0 - 3.0 HIGH RISK: Mechanical prosthetic valves 2.5 - 3.5 Performed By: #### A GINA, CBC, BMP, ADIFF #### [place] [address] #### GFR #### [place] [address] PT Coag (PPP) [Time] 11.1 s Normal 9.7-14.7 [facility] ([place] Comment on above: Performed By: #### A GINA, CBC, BMP, ADIFF #### [place] [address] #### GFR #### [address] [address] TROPHSon 01-07-2021 Troponin I High Sensitivity 34.6 ng/L Normal 0.0-76.2 [facility] ([place] Comment on above: Performed By: #### A GINA, CBC, BMP, ADIFF #### [place] [address] #### GFR #### [place] [address] .Auto Diffon 01-06-2021 Basophil, Absolute 0.00 10 3/mcL Normal 0.00-0.19 [facility] ([place] Comment on above: Performed By: #### P BNP #### [place] [address] #### BMP, GFR #### [place] [address] Basophils/100 WBC (Bld) 0.6 % Normal 0.0-2.5 [facility] ([place] Comment on above: Performed By: #### P BNP #### [place] [address] #### BMP, GFR #### [address] [address] Eosinophil, Absolute 0.00 10 3/mcL Normal 0.00-0.40 [facility] ([place] Comment on above: Performed By: #### P BNP #### [place] [address] #### BMP, GFR #### [address] [address] Eosinophils/100 WBC (Bld) 0.0 % Normal 0.0-7.0 [facility] ([place] Comment on above: Performed By: #### P BNP #### [place] [address] #### BMP, GFR #### [facility] [address] [place], [place] [address] Lymphocyte, Absolute 0.90 10 3/mcL Normal 0.77-3.85 [facility] ([place] Comment on above: Performed By: #### P BNP #### [place] [address] #### BMP, GFR #### [address] [address] Lymphocytes/100 WBC (Bld) 13.0 % Normal 10.0-50.0 [facility] ([place] Comment on above: Performed By: #### P BNP #### [place] [address] #### BMP, GFR #### [address] [address] Monocyte, Absolute 0.90 10 3/mcL Normal 0.15-1.00 [facility] ([place] Comment on above: Performed By: #### P BNP #### [place] [address] #### BMP, GFR #### [address] [address] Monocytes/100 WBC (Bld) 12.4 % Normal 1.7-13.0 [facility] ([place] Comment on above: Performed By: #### P BNP #### [place] [id number] #### BMP, GFR #### [address] [address] Neutrophils/100 WBC (Bld) 74.0 % Normal 37.0-80.0 [facility] ([place] Comment on above: Performed By: #### P BNP #### [place] [address] #### BMP, GFR #### [address] [address] .GFRon 01-06-2021 GFR 49 ml/min/1.73sqm Normal [facility] ([place] Comment on above: Result Comment: GFR Population mean for , Non- Americans Ages 20-29 = 116 mL/min/1.73 sq.m. Ages 30-39 = 107 mL/min/1.73 sq.m. Ages 40-49 = 99 mL/min/1.73 sq.m. Ages 50-59 = 93 mL/min/1.73 sq.m. Ages 60-69 = 85 mL/min/1.73 sq.m. Ages 70+ = 75 mL/min/1.73 sq.m. Chronic Kidney Disease: Less than 60 mL/min/1.73 square meters End Stage Renal Disease: Less than 15 mL/min/1.73 square meters Performed By: #### P BNP #### [address] [address] #### BMP, GFR #### [address] [address] GFR Non- 40 ml/min/1.73sqm Normal [facility] ([place] Comment on above: Result Comment: GFR Population mean for , Non- Americans Ages 20-29 = 116 mL/min/1.73 sq.m. Ages 30-39 = 107 mL/min/1.73 sq.m. Ages 40-49 = 99 mL/min/1.73 sq.m. Ages 50-59 = 93 mL/min/1.73 sq.m. Ages 60-69 = 85 mL/min/1.73 sq.m. Ages 70+ = 75 mL/min/1.73 sq.m. Chronic Kidney Disease: Less than 60 mL/min/1.73 square meters End Stage Renal Disease: Less than 15 mL/min/1.73 square meters Performed By: #### P BNP #### [address] [address] #### BMP, GFR #### [address] [address] .NEUABSon 01-06-2021 Neutrophil, Absolute 5.10 10 3/mcL Normal 2.85-6.16 [facility] [place] Comment on above: Performed By: #### P BNP #### [address] [address] #### BMP, GFR #### [address] [address] A1Con 01-06-2021 HbA1c (Bld) [Mass fraction] 6.0 % Normal 4.3-6.4 [facility] ([place] Comment on above: Performed By: #### P BNP #### [address] [address] #### BMP, GFR #### [address] [address] BMPon 01-06-2021 BUN/Creatinine Ratio 37 ratio High 7-27 [facility] ([place] Comment on above: Performed By: #### P BNP #### [address] [address] #### BMP, GFR #### [address] [address] Calcium [Mass/Vol] 7.9 mg/dL Low 8.4-10.2 [facility] ([place] Comment on above: Performed By: #### P BNP #### [address] [address] #### BMP, GFR #### [address] [address] Chloride [Moles/Vol] 90 mmol/L Low 98-107 [facility] ([place] Comment on above: Performed By: #### P BNP #### [address] [address] #### BMP, GFR #### [address] [address] CO2 [Moles/Vol] 27 mmol/L Normal 22-29 [facility] [place] Comment on above: Performed By: #### P BNP #### [address] [address] #### BMP, GFR #### [address] [address] Creatinine [Mass/Vol] 1.80 mg/dL High 0.70-1.30 [facility] ([place] Comment on above: Performed By: #### P BNP #### [address] [place] [address] #### BMP, GFR #### [address] [address] Electrolyte Balance 10.0 mEq/L Normal [facility] ([place] Comment on above: Performed By: #### P BNP #### [address] [address] #### BMP, GFR #### [address] [address] Glucose [Mass/Vol] 130 mg/dL High 70-105 [facility] ([place] Comment on above: Performed By: #### P BNP #### [place] [address] #### BMP, GFR #### [address] [address] Potassium [Moles/Vol] 3.7 mmol/L Normal 3.5-5.1 [facility] ([place] Comment on above: Performed By: #### P BNP #### [address] [address] #### BMP, GFR #### [address] [address] Sodium [Moles/Vol] 127 mmol/L Low 136-145 [facility] [place] Comment on above: Performed By: #### P BNP #### [address] [address] #### BMP, GFR #### [address] [address] Urea nitrogen [Mass/Vol] 67 mg/dL High 7-18 [facility] [place] Comment on above: Performed By: #### P BNP #### [place] [address] #### BMP, GFR #### [address] [address] CBCon 01-06-2021 Erythrocyte distribution width (RBC) [Ratio] 17.0 % High 11.5-14.5 [facility] [place] Comment on above: Performed By: #### P BNP #### [place] [id number] #### BMP, GFR #### [place] [address] Hematocrit (Bld) [Volume fraction] 42.7 % Normal 42.0-52.0 [facility] [place] Comment on above: Performed By: #### P BNP #### [place] [address] #### BMP, GFR #### [place] [address] Hgb 14.7 G/dL Normal 14.0-18.0 [facility] [place] Comment on above: Performed By: #### P BNP #### [place] [address] #### BMP, GFR #### [place] [address] MCH (RBC) [Entitic mass] 28.3 pg Normal 27.0-31.2 [facility] [place] Comment on above: Performed By: #### P BNP #### [place] [address] #### BMP, GFR #### [place] [address] MCHC 34.5 G/dL Normal 31.8-35.4 [facility] [place] Comment on above: Performed By: #### P BNP #### [place] [address] #### BMP, GFR #### [place] [address] MCV (RBC) [Entitic vol] 82.0 fL Normal 80.0-94.0 [facility] [place] Comment on above: Performed By: #### P BNP #### [place] [id number] #### BMP, GFR #### [place] [address] Platelet 194 10 3/mcL Normal 130-400 [facility] ([place]) Comment on above: Performed By: #### P BNP #### [place] [address] #### BMP, GFR #### [place] [address] Platelet mean volume (Bld) [Entitic vol] 9.6 fL Normal 7.4-10.4 [facility] [place] Comment on above: Performed By: #### P BNP #### [place] [address] #### BMP, GFR #### [place] [address] RBC 5.21 10 6/mcL Normal 4.04-6.13 [facility] [place] Comment on above: Performed By: #### P BNP #### [place] [address] #### BMP, GFR #### [place] [address] WBC 6.80 10 3/mcL Normal 4.60-10.80 [facility] [place] Comment on above: Performed By: #### P BNP #### [place] [address] #### BMP, GFR #### [place] [address] CRPon 01-06-2021 C-Reactive Protein 1.2 mg/dL High 0.0-0.9 [facility] [place] Comment on above: Performed By: #### P SA #### [place] [address] Melva 01-06-2021 Ferritin [Mass/Vol] 315.4 ng/mL Normal 26.0-388.0 [facility] ([place] Comment on above: Performed By: #### C MP, GFR, TSH, LIPID #### [place] [address] #### CBC, ANEU, PBNP, ADIFF #### [place] [address] FIBon 01-06-2021 Fibrinogen 584 mg/dL Normal 292-711 [facility] ([place] Comment on above: Performed By: #### P SA #### [address] [address] LDHon 01-06-2021 LDH 475 U/L High 85-227 [facility] ([place] Comment on above: Performed By: #### P SA #### [address] [address] MGon 01-06-2021 Magnesium [Mass/Vol] 2.3 mg/dL Normal 1.8-2.4 [facility] ([place]) Comment on above: Performed By: #### P BNP #### [place] [address] #### BMP, GFR #### [place] [address] NAURon 01-06-2021 U Sodium <5 Low 20-110 [facility] ([place] Comment on above: Performed By: #### A GINA, CBC, BMP, ADIFF #### [place] [address] #### GFR #### [place] [address] PROon 01-06-2021 INR Coag (PPP) [Relative time] 1.0 {INR} Normal 0.9-1.2 [facility] ([place] Comment on above: Result Comment: Yohannes dard Dose 2.0 - 3.0 High Dose 2.5 - 3.5 The recommended therapeutic range for oral anticoagulant therapy is: LOW RISK: Prophylaxis of venous thrombosis INR: 2.0 - 3.0 Treatment of pulmonary embolism 2.0 - 3.0 Prevention of systemic embolism 2.0 - 3.0 HIGH RISK: Mechanical prosthetic valves 2.5 - 3.5 Performed By: #### P SA #### [address] [address] PT Coag (PPP) [Time] 11.6 s Normal 9.7-14.7 [facility] ([place]) Comment on above: Performed By: #### P SA #### [address] [address] TROPHSon 01-06-2021 Troponin I High Sensitivity 50.5 ng/L Normal 0.0-76.2 [facility] ([place] Comment on above: Performed By: #### P SA #### [address] [address] .Auto Diffon 01-05-2021 Basophil, Absolute 0.00 10 3/mcL Normal 0.00-0.19 [facility] ([place]) Comment on above: Performed By: #### P BNP #### [place] [address] #### BMP, GFR #### [address] [address] Basophils/100 WBC (Bld) 0.7 % Normal 0.0-2.5 [facility] ([place]) Comment on above: Performed By: #### P BNP #### [place] [address] #### BMP, GFR #### [address] [address] Eosinophil, Absolute 0.00 10 3/mcL Normal 0.00-0.40 [facility] ([place] Comment on above: Performed By: #### P BNP #### [place] [address] #### BMP, GFR #### [address] [address] Eosinophils/100 WBC (Bld) 0.1 % Normal 0.0-7.0 [facility] ([place] Comment on above: Performed By: #### P BNP #### [place] [address] #### BMP, GFR #### [address] [address] Lymphocyte, Absolute 0.90 10 3/mcL Normal 0.77-3.85 [facility] ([place] Comment on above: Performed By: #### P BNP #### [address] [address] #### BMP, GFR #### [address] [address] Lymphocytes/100 WBC (Bld) 14.3 % Normal 10.0-50.0 [facility] ([place] Comment on above: Performed By: #### P BNP #### [place] [address] #### BMP, GFR #### [address] [address] Monocyte, Absolute 0.90 10 3/mcL Normal 0.15-1.00 [facility] ([place]) Comment on above: Performed By: #### P BNP #### [place] [address] #### BMP, GFR #### [address] [address] Monocytes/100 WBC (Bld) 13.9 % High 1.7-13.0 [facility] [place] Comment on above: Performed By: #### P BNP #### [place] [address] #### BMP, GFR #### [address] [address] Neutrophils/100 WBC (Bld) 71.0 % Normal 37.0-80.0 [facility] ([place] Comment on above: Performed By: #### P BNP #### [place] [address] #### BMP, GFR #### [address] [address] .GFRon 01-05-2021 GFR Non- 36 ml/min/1.73sqm Normal [facility] ([place] Comment on above: Result Comment: GFR Population mean for , Non- Americans Ages 20-29 = 116 mL/min/1.73 sq.m. Ages 30-39 = 107 mL/min/1.73 sq.m. Ages 40-49 = 99 mL/min/1.73 sq.m. Ages 50-59 = 93 mL/min/1.73 sq.m. Ages 60-69 = 85 mL/min/1.73 sq.m. Ages 70+ = 75 mL/min/1.73 sq.m. Chronic Kidney Disease: Less than 60 mL/min/1.73 square meters End Stage Renal Disease: Less than 15 mL/min/1.73 square meters Performed By: #### P BNP #### [address] [address] #### BMP, GFR #### [address] [address] GFR 44 ml/min/1.73sqm Normal [facility] ([place] Comment on above: Result Comment: GFR Population mean for , Non- Americans Ages 20-29 = 116 mL/min/1.73 sq.m. Ages 30-39 = 107 mL/min/1.73 sq.m. Ages 40-49 = 99 mL/min/1.73 sq.m. Ages 50-59 = 93 mL/min/1.73 sq.m. Ages 60-69 = 85 mL/min/1.73 sq.m. Ages 70+ = 75 mL/min/1.73 sq.m. Chronic Kidney Disease: Less than 60 mL/min/1.73 square meters End Stage Renal Disease: Less than 15 mL/min/1.73 square meters Performed By: #### P BNP #### [address] [address] #### BMP, GFR #### [address] [address] GFR 39 ml/min/1.73sqm Normal [facility] ([place] Comment on above: Result Comment: GFR Population mean for , Non- Americans Ages 20-29 = 116 mL/min/1.73 sq.m. Ages 30-39 = 107 mL/min/1.73 sq.m. Ages 40-49 = 99 mL/min/1.73 sq.m. Ages 50-59 = 93 mL/min/1.73 sq.m. Ages 60-69 = 85 mL/min/1.73 sq.m. Ages 70+ = 75 mL/min/1.73 sq.m. Chronic Kidney Disease: Less than 60 mL/min/1.73 square meters End Stage Renal Disease: Less than 15 mL/min/1.73 square meters Performed By: #### P BNP #### [address] [address] #### BMP, GFR #### [address] [address] GFR Non- 33 ml/min/1.73sqm Normal [facility] ([place] Comment on above: Result Comment: GFR Population mean for , Non- Americans Ages 20-29 = 116 mL/min/1.73 sq.m. Ages 30-39 = 107 mL/min/1.73 sq.m. Ages 40-49 = 99 mL/min/1.73 sq.m. Ages 50-59 = 93 mL/min/1.73 sq.m. Ages 60-69 = 85 mL/min/1.73 sq.m. Ages 70+ = 75 mL/min/1.73 sq.m. Chronic Kidney Disease: Less than 60 mL/min/1.73 square meters End Stage Renal Disease: Less than 15 mL/min/1.73 square meters Performed By: #### P BNP #### [place] [address] #### BMP, GFR #### [address] [address] .Morphon 01-05-2021 Platelet Estimate Normal Normal [facility] ([place] Comment on above: Performed By: #### P BNP #### [place] [id number] #### BMP, GFR #### [address] [address] .NEUABSon 01-05-2021 Neutrophil, Absolute 4.50 10 3/mcL Normal 2.85-6.16 [facility] ([place] Comment on above: Performed By: #### P BNP #### [place] [id number] #### BMP, GFR #### [place] [address] .Urinalysis Microscopic (AO) on 01-05-2021 UA Amorphus 1+ /hpf Normal [facility] ([place] Comment on above: Performed By: #### A GINA, CBC, BMP, ADIFF #### [address] [address] #### GFR #### [place] [address] UA Bacteria 4+ /hpf Abnormal [facility] ([place] Comment on above: Performed By: #### A GINA, CBC, BMP, ADIFF #### [address] [address] #### GFR #### [place] [address] UA Coarse Granular Casts 0-5 Abnormal [facility] ([place] Comment on above: Performed By: #### A GINA, CBC, BMP, ADIFF #### [place] [address] #### GFR #### [place] [address] UA RBC 0-5 Abnormal None Seen [facility] ([place] Comment on above: Performed By: #### A GINA, CBC, BMP, ADIFF #### [address] [address] #### GFR #### [place] [address] UA Squam Epithelial 0-5 Abnormal None Seen [facility] ([place] Comment on above: Performed By: #### A GINA, CBC, BMP, ADIFF #### [address] [address] #### GFR #### [place] [address] UA WBC 5-10 Abnormal None Seen [facility] ([place] Comment on above: Performed By: #### A GINA, CBC, BMP, ADIFF #### [place] [address] #### GFR #### [address] [address] BMPon 01-05-2021 BUN/Creatinine Ratio 37 ratio High 7-27 [facility] ([place] Comment on above: Performed By: #### P BNP #### [address] [address] #### BMP, GFR #### [address] [address] Calcium [Mass/Vol] 7.9 mg/dL Low 8.4-10.2 [facility] ([place] Comment on above: Performed By: #### P BNP #### [address] [address] #### BMP, GFR #### [address] [address] Chloride [Moles/Vol] 89 mmol/L Low 98-107 [facility] ([place] Comment on above: Performed By: #### P BNP #### [place] [address] #### BMP, GFR #### [address] [address] CO2 [Moles/Vol] 30 mmol/L High 22-29 [facility] ([place] Comment on above: Performed By: #### P BNP #### [address] [address] #### BMP, GFR #### [address] [address] Creatinine [Mass/Vol] 1.96 mg/dL High 0.70-1.30 [facility] ([place] Comment on above: Performed By: #### P BNP #### [address] [address] #### BMP, GFR #### [address] [address] Electrolyte Balance 8.0 mEq/L Normal [facility] ([place] Comment on above: Performed By: #### P BNP #### [place] [address] #### BMP, GFR #### [address] [address] Glucose [Mass/Vol] 157 mg/dL High 70-105 [facility] ([place] Comment on above: Performed By: #### P BNP #### [address] [address] #### BMP, GFR #### [address] [address] Potassium [Moles/Vol] 3.6 mmol/L Normal 3.5-5.1 [facility] ([place] Comment on above: Performed By: #### P BNP #### [address] [address] #### BMP, GFR #### [address] [address] Sodium [Moles/Vol] 127 mmol/L Low 136-145 [facility] ([place] Comment on above: Performed By: #### P BNP #### [address] [address] #### BMP, GFR #### [address] [address] Urea nitrogen [Mass/Vol] 72 mg/dL High 7-18 [facility] ([place] Comment on above: Performed By: #### P BNP #### [address] [address] #### BMP, GFR #### [address] [address] BUN/Creatinine Ratio 33 ratio High 7-27 [facility] ([place] Comment on above: Performed By: #### P BNP #### [address] [address] #### BMP, GFR #### [address] [address] Calcium [Mass/Vol] 8.4 mg/dL Normal 8.4-10.2 [facility] ([place] Comment on above: Performed By: #### P BNP #### [address] [address] #### BMP, GFR #### [address] [address] Chloride [Moles/Vol] 87 mmol/L Low 98-107 [facility] ([place] Comment on above: Performed By: #### P BNP #### [address] [address] #### BMP, GFR #### [address] [address] CO2 [Moles/Vol] 26 mmol/L Normal 22-29 [facility] ([place] Comment on above: Performed By: #### P BNP #### [address] [address] #### BMP, GFR #### [address] [address] Creatinine [Mass/Vol] 2.16 mg/dL High 0.70-1.30 [facility] ([place] Comment on above: Performed By: #### P BNP #### [address] [address] #### BMP, GFR #### [address] [address] Electrolyte Balance 13.0 mEq/L Normal [facility] ([place] Comment on above: Performed By: #### P BNP #### [address] [address] #### BMP, GFR #### [address] [address] Glucose [Mass/Vol] 154 mg/dL High 70-105 [facility] ([place] Comment on above: Performed By: #### P BNP #### [address] [address] #### BMP, GFR #### [address] [address] Potassium [Moles/Vol] 3.9 mmol/L Normal 3.5-5.1 [facility] ([place] Comment on above: Performed By: #### P BNP #### [place] [address] #### BMP, GFR #### [address] [address] Sodium [Moles/Vol] 126 mmol/L Low 136-145 [facility] ([place] Comment on above: Performed By: #### P BNP #### [place] [address] #### BMP, GFR #### [address] [address] Urea nitrogen [Mass/Vol] 72 mg/dL High 7-18 [facility] ([place] Comment on above: Performed By: #### P BNP #### [place] [address] #### BMP, GFR #### [address] [address] CBCon 01-05-2021 Erythrocyte distribution width (RBC) [Ratio] 16.8 % High 11.5-14.5 [facility] ([place] Comment on above: Performed By: #### P BNP #### [place] [address] #### BMP, GFR #### [address] [address] Hematocrit (Bld) [Volume fraction] 49.0 % Normal 42.0-52.0 [facility] ([place] Comment on above: Performed By: #### P BNP #### [place] [address] #### BMP, GFR #### [address] [address] Hgb 16.7 G/dL Normal 14.0-18.0 [facility] ([place] Comment on above: Performed By: #### P BNP #### [place] [address] #### BMP, GFR #### [address] [address] MCH (RBC) [Entitic mass] 27.9 pg Normal 27.0-31.2 [facility] ([place] Comment on above: Performed By: #### P BNP #### [place] [address] #### BMP, GFR #### [place] [address] MCHC 34.1 G/dL Normal 31.8-35.4 [facility] ([place] Comment on above: Performed By: #### P BNP #### [place] [address] #### BMP, GFR #### [place] [address] MCV (RBC) [Entitic vol] 81.8 fL Normal 80.0-94.0 [facility] ([place] Comment on above: Performed By: #### P BNP #### [place] [address] #### BMP, GFR #### [place] [address] Platelet 221 10 3/mcL Normal 130-400 [facility] ([place] Comment on above: Performed By: #### P BNP #### [place] [address] #### BMP, GFR #### [place] [address] Platelet mean volume (Bld) [Entitic vol] 9.3 fL Normal 7.4-10.4 [facility] ([place] Comment on above: Performed By: #### P BNP #### [place] [address] #### BMP, GFR #### [place] [address] RBC 5.99 10 6/mcL Normal 4.04-6.13 [facility] ([place] Comment on above: Performed By: #### P BNP #### [place] [address] #### BMP, GFR #### [place] [address] WBC 6.40 10 3/mcL Normal 4.60-10.80 [facility] ([place] Comment on above: Performed By: #### P BNP #### [address] [address] #### BMP, GFR #### [place] [address] [id number] 01-05-2021 Date of Onset [id number] Invalid Interpretation Code [facility] ([place] Comment on above: Order Comment: Abhishek Joel pepe @ 174 ja Performed By: #### C MP, GFR, TSH, LIPID #### [place] [address] #### CBC, ANEU, PBNP, ADIFF #### [place] [address] Employed in Healthcare No [facility] ([place] Comment on above: Order Comment: Abhishek Joel pepe @ 1747 ja Performed By: #### C MP, GFR, TSH, LIPID #### [place] [address] #### CBC, ANEU, PBNP, ADIFF #### [place] [address] First Test No [facility] ([place] Comment on above: Order Comment: Abhishek Joel ll @ 1747 ja Performed By: #### C MP, GFR, TSH, LIPID #### [place] [address] #### CBC, ANEU, PBNP, ADIFF #### [place] [address] Hospitalized Yes [facility] ([place] Comment on above: Order Comment: Abhishek Joel ll @ 1747 ja Performed By: #### C MP, GFR, TSH, LIPID #### [place] [address] #### CBC, ANEU, PBNP, ADIFF #### [address] [address] ICU No [facility] ([place] Comment on above: Order Comment: Abhishek Joel ll @ 1747 ja Performed By: #### C MP, GFR, TSH, LIPID #### [address] [address] #### CBC, ANEU, PBNP, ADIFF #### [address] [address] Not Normal [facility] ([place] Comment on above: Order Comment: Abhishek Espinoza @ 174 ja Performed By: #### C MP, GFR, TSH, LIPID #### [place] [address] #### CBC, ANEU, PBNP, ADIFF #### [address] [address] Resides in Congregate Care Setting No [facility] ([place] Comment on above: Order Comment: Abhishek Joel pepe @ 1746 ja Performed By: #### C MP, GFR, TSH, LIPID #### [place] [address] #### CBC, ANEU, PBNP, ADIFF #### [address] [address] SARS-CoV-2 (COVID-19) RNA ZANDER+probe Ql (Unsp spec) Positive Abnormal Negative [facility] ([place] Comment on above: Order Comment: Abhishek Joel pepe @ 1747 ja Performed By: #### C MP, GFR, TSH, LIPID #### [place] [address] #### CBC, ANEU, PBNP, ADIFF #### [place] [address] SARS-CoV-2 (COVID-19) RNA ZANDER+probe Ql (Unsp spec) Normal [facility] ([place] Comment on above: Order Comment: Abhishek Joel pepe @ 1747 ja Result Comment: Posi tive results are indicative of the presence of SARS-CoV-2 RNA; clinical correlation with patient history and other diagnostic information is necessary to determine patient infection status. Positive results do not rule out bacterial infection or co-infection with other viruses. The agent detected may not be the definite cause of disease. Laboratories within the [facility] and its territories are required to report all positive results to the appropriate public health authorities. Detection of analyte target(s) does not imply that the corresponding virus(es) are infectious or are the causative agents for clinical symptoms. There is a risk of false positive values resulting from cross-contamination by target organisms, their nucleic acids or amplified product, or from non-specific signals in the assay. ALYSA SARS-CoV-2 Assay is a Real-Time reverse-transcriptase polymerase chain reaction (RT-PCR) based qualitative in vitro diagnostic test intended for the qualitative detection of nucleic acid from the SARS-CoV-2 in nasopharyngeal swab specimens collected from individuals suspected of COVID-19 by their healthcare provider. Testing is limited to laboratories certified under the Clinical Laboratory Improvement Amendments of 1988 (CLIA), 42 U.S.C. ?263a, to perform moderate and high complexity tests. COVID-19 Int Performed By: #### C MP, GFR, TSH, LIPID #### [place] [address] #### CBC, ANEU, PBNP, ADIFF #### [address] [address] Symptomatic as Defined by CDC Yes Normal [facility] ([place] Comment on above: Order Comment: Abhishek Maldonado ll @ 1747 Performed By: #### C MP, GFR, TSH, LIPID #### [place] [id number] #### CBC, ANEU, PBNP, ADIFF #### [address] [address] DIMERon 01-05-2021 D-Dimer 461 ng/mL D-DU High 0-230 [facility] ([place] Comment on above: Result Comment: The result of the D-Dimer test should be evaluated in the context of all the clinical and laboratory data available. In those instances where the laboratory result does not agree with the clinical evaluation, additional tests should be performed accordingly. If the D-Dimer result is used to exclude DVT or PE, the recommended cutoff value is less than 230 ng/mL. The D-Dimer result should not be used alone to rule in DVT/PE, but should be used in conjunction with a clinical pretest probability (PTP)assessment model to exclude venous thromboembolism (VTE) in outpatients suspected of deep venous thrombosis (DVT) and pulmonary embolism (PE). Performed By: #### C MP, GFR, TSH, LIPID #### [place] [address] #### CBC, ANEU, PBNP, ADIFF #### [address] [address] PBNPon 01-05-2021 Natriuretic peptide B (Bld) [Mass/Vol] 179 pg/mL High 0-125 [facility] ([place] Comment on above: Result Comment: NT-p roBNP results of less than 300 pg/mL effectively rules out acute congestive heart failure with 99% negative predictive value. Performed By: #### A GINA, CBC, BMP, ADIFF #### [place] [address] #### GFR #### [place] [address] TROPHSon 01-05-2021 Troponin I High Sensitivity 58.2 ng/L Normal 0.0-76.2 [facility] ([place] Comment on above: Performed By: #### P BNP #### [place] [address] #### BMP, GFR #### [place] [address] UAon 01-05-2021 Color (U) Yellow Normal [facility] ([place] Comment on above: Performed By: #### A GINA, CBC, BMP, ADIFF #### [place] [address] #### GFR #### [place] [address] Glucose (U) [Mass/Vol] Negative Normal Negative [facility] ([place] Comment on above: Performed By: #### A GINA, CBC, BMP, ADIFF #### [place] [address] #### GFR #### [place] [address] Ketones Ql (U) Negative Normal Negative [facility] ([place] Comment on above: Performed By: #### A GINA, CBC, BMP, ADIFF #### [address] [address] #### GFR #### [address] [address] UA Appear Clear Normal Clear [facility] ([place] Comment on above: Performed By: #### A GINA, CBC, BMP, ADIFF #### [address] [address] #### GFR #### [address] [address] UA Bili Small Abnormal Negative [facility] ([place] Comment on above: Performed By: #### A GINA, CBC, BMP, ADIFF #### [address] [address] #### GFR #### [address] [address] UA Blood Moderate Abnormal Negative [facility] ([place] Comment on above: Performed By: #### A GINA, CBC, BMP, ADIFF #### [address] [address] #### GFR #### [address] [address] UA Leuk Est Negative Normal Negative [facility] ([place] Comment on above: Performed By: #### A GINA, CBC, BMP, ADIFF #### [address] [address] #### GFR #### [place] [address] UA Nitrite Negative Normal Negative [facility] ([place] Comment on above: Performed By: #### A GINA, CBC, BMP, ADIFF #### [address] [address] #### GFR #### [place] [address] UA pH 5.0 Normal 5.0 - 8.0 [facility] ([place] Comment on above: Performed By: #### A GINA, CBC, BMP, ADIFF #### [address] [address] #### GFR #### [place] [address] UA Protein >=300 Abnormal Negative [facility] ([place] Comment on above: Performed By: #### A GINA, CBC, BMP, ADIFF #### [place] [address] #### GFR #### [place] [address] UA Spec Grav >=1.030 Abnormal 1.015-1.02 5 [facility] ([place] Comment on above: Performed By: #### A GINA, CBC, BMP, ADIFF #### [place] [address] #### GFR #### [place] [address] UA Specimen Type Clean Catch Normal [facility] ([place] Comment on above: Performed By: #### A GINA, CBC, BMP, ADIFF #### [place] [address] #### GFR #### [place] [address] UA Urobilinogen 0.2 E.U./dL Normal 0.2-1.0 [facility] ([place] Comment on above: Performed By: #### A GINA, CBC, BMP, ADIFF #### [place] [address] #### GFR #### [place] [address] XR CHEST 1 VIEWon 01-05-2021 XR CHEST 1 VIEW ORIGINAL . XR CHEST 1 VIEW Clinical Statement: SOB/cough/fever. Comparison: Chest x-ray 07/01/2020. FINDINGS: There is stable cardiomegaly. Median sternotomy wires and valve prosthesis demonstrated. There is vascular congestion and small LEFT pleural effusion with adjacent opacities versus summation shadow. Perihilar airspace opacities are demonstrated. No pneumothorax bilaterally. No acute osseous abnormalities. IMPRESSION: Cardiomegaly with vascular congestion and possible small left-sided pleural effusion. Findings consistent with CHF exacerbation. Recommend continued follow-up. I have personally reviewed the images of this examination and agree with the resident's findings and interpretation. Interpreted By: Livia Arias MD Preliminary Report By: Kian Bedoya Electronically Signed By: Livia Arias MD Dictated Date: 01/05/2021 2:41:11 PM Prelim Date: 01/05/2021 2:47:04 PM Sign Date: 01/05/2021 3:00:51 PM Ordering Provider:Carlos Shea [facility] [place] LIPIDon 07-21-2020 Cholesterol [Mass/Vol] 139 mg/dL Normal 0-200 [facility] ([place] Comment on above: Result Comment: Chol esterol Reference Interval: Less than 200 Desirable 200-239 Borderline high risk 240 and above High risk Performed By: #### A GINA, CBC, BMP, ADIFF #### [place] [address] #### GFR #### [address] [address] Cholesterol in HDL [Mass/Vol] 53 mg/dL Normal 40-60 [facility] ([place] Comment on above: Performed By: #### A GINA, CBC, BMP, ADIFF #### [place] [address] #### GFR #### [address] [address] Cholesterol in LDL [Mass/Vol] 76 mg/dL Normal 0-130 [facility] ([place] Comment on above: Performed By: #### A GINA, CBC, BMP, ADIFF #### [place] [address] #### GFR #### [address] [address] Triglyceride [Mass/Vol] 52 mg/dL Normal 0-150 [facility] [place] Comment on above: Result Comment: Trig lyceride Reference Interval: Less than 150 Normal 150-199 Borderline high risk 200-499 High risk 500 or higher Very high risk Performed By: #### A GINA, CBC, BMP, ADIFF #### [place] [address] #### GFR #### [address] [address] PSAon 07-21-2020 Prostate Specific Antigen 3.15 ng/mL Normal 0.00-4.00 [facility] [place] Comment on above: Performed By: #### A GINA, CBC, BMP, ADIFF #### [place] [id number] [place], [place] [address] #### GFR #### [address] [address] .GFRon 07-09-2020 GFR 84 ml/min/1.73sqm Normal [facility] ([place] Comment on above: Result Comment: GFR Population mean for , Non- Americans Ages 20-29 = 116 mL/min/1.73 sq.m. Ages 30-39 = 107 mL/min/1.73 sq.m. Ages 40-49 = 99 mL/min/1.73 sq.m. Ages 50-59 = 93 mL/min/1.73 sq.m. Ages 60-69 = 85 mL/min/1.73 sq.m. Ages 70+ = 75 mL/min/1.73 sq.m. Chronic Kidney Disease: Less than 60 mL/min/1.73 square meters End Stage Renal Disease: Less than 15 mL/min/1.73 square meters Performed By: #### A GINA, CBC, BMP, ADIFF #### [address] [address] #### GFR #### [address] [address] GFR Non- 69 ml/min/1.73sqm Normal [facility] [place] Comment on above: Result Comment: GFR Population mean for , Non- Americans Ages 20-29 = 116 mL/min/1.73 sq.m. Ages 30-39 = 107 mL/min/1.73 sq.m. Ages 40-49 = 99 mL/min/1.73 sq.m. Ages 50-59 = 93 mL/min/1.73 sq.m. Ages 60-69 = 85 mL/min/1.73 sq.m. Ages 70+ = 75 mL/min/1.73 sq.m. Chronic Kidney Disease: Less than 60 mL/min/1.73 square meters End Stage Renal Disease: Less than 15 mL/min/1.73 square meters Performed By: #### A GINA, CBC, BMP, ADIFF #### [address] [address] #### GFR #### [address] [address] CMPon 07-09-2020 Albumin Level 3.2 G/dL Low 3.5-5.0 [facility] [place] Comment on above: Performed By: #### A GINA, CBC, BMP, ADIFF #### [address] [address] #### GFR #### [address] [address] Albumin/Globulin [Mass ratio] 0.8 {ratio} Low 1.1-2.5 [facility] ([place] Comment on above: Performed By: #### A GINA, CBC, BMP, ADIFF #### [address] [address] #### GFR #### [address] [address] ALP [Catalytic activity/Vol] 131 U/L Normal 40-135 [facility] ([place] Comment on above: Performed By: #### A GINA, CBC, BMP, ADIFF #### [address] [address] #### GFR #### [address] [address] ALT [Catalytic activity/Vol] 60 U/L Normal 16-63 [facility] ([place] Comment on above: Performed By: #### A GINA, CBC, BMP, ADIFF #### [address] [address] #### GFR #### [address] [address] AST [Catalytic activity/Vol] 36 U/L Normal 10-40 [facility] ([place] Comment on above: Performed By: #### A GINA, CBC, BMP, ADIFF #### [address] [address] #### GFR #### [address] [address] Bili Total 0.5 mg/dL Normal 0.2-1.0 [facility] ([place] Comment on above: Result Comment: Use of this assay is not recommended for patients undergoing treatment with eltrombopag due to the potential for falsely elevated results. Performed By: #### A GINA, CBC, BMP, ADIFF #### [address] [address] #### GFR #### [address] [address] BUN/Creatinine Ratio 17 ratio Normal 7-27 [facility] ([place] Comment on above: Performed By: #### A GINA, CBC, BMP, ADIFF #### [address] [address] #### GFR #### [address] [address] Calcium [Mass/Vol] 8.8 mg/dL Normal 8.4-10.2 [facility] ([place] Comment on above: Performed By: #### A GINA, CBC, BMP, ADIFF #### [address] [address] #### GFR #### [address] [address] Chloride [Moles/Vol] 103 mmol/L Normal 98-107 [facility] ([place] Comment on above: Performed By: #### A GINA, CBC, BMP, ADIFF #### [address] [address] #### GFR #### [address] [address] CO2 [Moles/Vol] 33 mmol/L High 22-29 [facility] ([place] Comment on above: Performed By: #### A GINA, CBC, BMP, ADIFF #### [address] [address] #### GFR #### [address] [address] Creatinine [Mass/Vol] 1.12 mg/dL Normal 0.70-1.30 [facility] ([place] Comment on above: Performed By: #### A GINA, CBC, BMP, ADIFF #### [address] [address] #### GFR #### [address] [address] Electrolyte Balance 5.0 mEq/L Normal [facility] ([place] Comment on above: Performed By: #### A GINA, CBC, BMP, ADIFF #### [address] [address] #### GFR #### [address] [address] Globulin 3.9 G/dL Normal [facility] ([place] Comment on above: Performed By: #### A GINA, CBC, BMP, ADIFF #### [address] [address] #### GFR #### [address] [address] Glucose [Mass/Vol] 95 mg/dL Normal 70-105 [facility] ([place] Comment on above: Performed By: #### A GINA, CBC, BMP, ADIFF #### [address] [address] #### GFR #### [address] [address] Potassium [Moles/Vol] 4.2 mmol/L Normal 3.5-5.1 [facility] ([place] Comment on above: Performed By: #### A GINA, CBC, BMP, ADIFF #### [address] [address] #### GFR #### [address] [address] Sodium [Moles/Vol] 141 mmol/L Normal 136-145 [facility] ([place] Comment on above: Performed By: #### A GINA, CBC, BMP, ADIFF #### [place] [address] #### GFR #### [address] [address] Total Protein 7.1 G/dL Normal 6.4-8.2 [facility] ([place] Comment on above: Performed By: #### A GINA, CBC, BMP, ADIFF #### [place] [address] #### GFR #### [place] [address] Urea nitrogen [Mass/Vol] 19 mg/dL High 7-18 [facility] ([place] Comment on above: Performed By: #### A GINA, CBC, BMP, ADIFF #### [place] [address] #### GFR #### [place] [address] MYCOon 07-08-2020 Mycoplasma IgG Negative Normal [facility] ([place] Comment on above: Result Comment: INTE RPRETATION OF MYCOPLASMA BY EIA (Effective 10/13/04): Negative No detectable antibodies to M. pneumoniae. Indicates absence of current or previous infection. Positive Reactive for antibodies to M. pneumoniae. Indicates a past or recent infection. Equivocal Equivocal for antibodies to M. pneumoniae. Repeat testing by an alternate method suggested. Performed By: #### A GINA, CBC, BMP, ADIFF #### [place] [address] #### GFR #### [place] [address] .Auto Diffon 07-03-2020 Basophil, Absolute 0.30 10 3/mcL High 0.00-0.19 [facility] ([place] Comment on above: Performed By: #### P BNP #### [place] [address] #### BMP, GFR #### [place] [address] Basophils/100 WBC (Bld) 1.4 % Normal 0.0-2.5 [facility] ([place] Comment on above: Performed By: #### P BNP #### [place] [address] #### BMP, GFR #### [address] [address] Eosinophil, Absolute 0.40 10 3/mcL Normal 0.00-0.40 [facility] ([place] Comment on above: Performed By: #### P BNP #### [place] [address] #### BMP, GFR #### [address] [address] Eosinophils/100 WBC (Bld) 2.0 % Normal 0.0-7.0 [facility] ([place] Comment on above: Performed By: #### P BNP #### [place] [address] #### BMP, GFR #### [address] [address] Lymphocyte, Absolute 2.00 10 3/mcL Normal 0.77-3.85 [facility] ([place] Comment on above: Performed By: #### P BNP #### [place] [address] #### BMP, GFR #### [address] [address] Lymphocytes/100 WBC (Bld) 10.6 % Normal 10.0-50.0 [facility] ([place] Comment on above: Performed By: #### P BNP #### [place] [address] #### BMP, GFR #### [address] [address] Monocyte, Absolute 1.50 10 3/mcL High 0.15-1.00 [facility] ([place] Comment on above: Performed By: #### P BNP #### [place] [address] #### BMP, GFR #### [address] [address] Monocytes/100 WBC (Bld) 8.3 % Normal 1.7-13.0 [facility] ([place] Comment on above: Performed By: #### P BNP #### [address] [address] #### BMP, GFR #### [address] [address] Neutrophils/100 WBC (Bld) 77.7 % Normal 37.0-80.0 [facility] ([place]) Comment on above: Performed By: #### P BNP #### [address] [address] #### BMP, GFR #### [address] [address] .GFRon 07-03-2020 GFR 70 ml/min/1.73sqm Normal [facility] ([place] Comment on above: Result Comment: GFR Population mean for , Non- Americans Ages 20-29 = 116 mL/min/1.73 sq.m. Ages 30-39 = 107 mL/min/1.73 sq.m. Ages 40-49 = 99 mL/min/1.73 sq.m. Ages 50-59 = 93 mL/min/1.73 sq.m. Ages 60-69 = 85 mL/min/1.73 sq.m. Ages 70+ = 75 mL/min/1.73 sq.m. Chronic Kidney Disease: Less than 60 mL/min/1.73 square meters End Stage Renal Disease: Less than 15 mL/min/1.73 square meters Performed By: #### P BNP #### [address] [address] #### BMP, GFR #### [address] [address] GFR Non- 57 ml/min/1.73sqm Normal [facility] ([place] Comment on above: Result Comment: GFR Population mean for , Non- Americans Ages 20-29 = 116 mL/min/1.73 sq.m. Ages 30-39 = 107 mL/min/1.73 sq.m. Ages 40-49 = 99 mL/min/1.73 sq.m. Ages 50-59 = 93 mL/min/1.73 sq.m. Ages 60-69 = 85 mL/min/1.73 sq.m. Ages 70+ = 75 mL/min/1.73 sq.m. Chronic Kidney Disease: Less than 60 mL/min/1.73 square meters End Stage Renal Disease: Less than 15 mL/min/1.73 square meters Performed By: #### P BNP #### [place] [address] #### BMP, GFR #### [place] [address] .NEUABSon 07-03-2020 Neutrophil, Absolute 14.50 10 3/mcL High 2.85-6.16 [facility] ([place] Comment on above: Performed By: #### P BNP #### [place] [address] #### BMP, GFR #### [place] [address] BMPon 07-03-2020 BUN/Creatinine Ratio 22 ratio Normal 7-27 [facility] ([place] Comment on above: Performed By: #### P BNP #### [place] [address] #### BMP, GFR #### [place] [id number] Calcium [Mass/Vol] 8.9 mg/dL Normal 8.4-10.2 [facility] ([place] Comment on above: Performed By: #### P BNP #### [place] [id number] #### BMP, GFR #### [place] [address] Chloride [Moles/Vol] 102 mmol/L Normal 98-107 [facility] ([place] Comment on above: Performed By: #### P BNP #### [place] [address] #### BMP, GFR #### [address] [address] CO2 [Moles/Vol] 20 mmol/L Low 22-29 [facility] ([place] Comment on above: Performed By: #### P BNP #### [address] [address] #### BMP, GFR #### [address] [address] Creatinine [Mass/Vol] 1.32 mg/dL High 0.70-1.30 [facility] ([place] Comment on above: Performed By: #### P BNP #### [address] [address] #### BMP, GFR #### [address] [address] Electrolyte Balance 11.0 mEq/L Normal [facility] ([place] Comment on above: Performed By: #### P BNP #### [place] [id number] #### BMP, GFR #### [address] [address] Glucose [Mass/Vol] 118 mg/dL High 70-105 [facility] ([place] Comment on above: Performed By: #### P BNP #### [address] [address] #### BMP, GFR #### [address] [address] Potassium [Moles/Vol] 4.4 mmol/L Normal 3.5-5.1 [facility] ([place] Comment on above: Performed By: #### P BNP #### [address] [address] #### BMP, GFR #### [address] [address] Sodium [Moles/Vol] 133 mmol/L Low 136-145 [facility] ([place] Comment on above: Performed By: #### P BNP #### [address] [address] #### BMP, GFR #### [address] [address] Urea nitrogen [Mass/Vol] 29 mg/dL High 7-18 [facility] ([place] Comment on above: Performed By: #### P BNP #### [address] [address] #### BMP, GFR #### [address] [address] CBCon 07-03-2020 Erythrocyte distribution width (RBC) [Ratio] 16.6 % High 11.5-14.5 [facility] ([place] Comment on above: Performed By: #### P BNP #### [place] [address] #### BMP, GFR #### [address] [address] Hematocrit (Bld) [Volume fraction] 42.6 % Normal 42.0-52.0 [facility] ([place] Comment on above: Performed By: #### P BNP #### [place] [id number] #### BMP, GFR #### [address] [address] Hgb 13.9 G/dL Low 14.0-18.0 [facility] ([place] Comment on above: Performed By: #### P BNP #### [place] [address] #### BMP, GFR #### [address] [address] MCH (RBC) [Entitic mass] 27.5 pg Normal 27.0-31.2 [facility] ([place] Comment on above: Performed By: #### P BNP #### [place] [address] #### BMP, GFR #### [address] [address] MCHC 32.5 G/dL Normal 31.8-35.4 [facility] ([place] Comment on above: Performed By: #### P BNP #### [place] [address] #### BMP, GFR #### [place] [address] MCV (RBC) [Entitic vol] 84.7 fL Normal 80.0-94.0 [facility] [place] Comment on above: Performed By: #### P BNP #### [place] [address] #### BMP, GFR #### [place] [address] Platelet 348 10 3/mcL Normal 130-400 [facility] ([place] Comment on above: Performed By: #### P BNP #### [place] [address] #### BMP, GFR #### [place] [address] Platelet mean volume (Bld) [Entitic vol] 8.3 fL Normal 7.4-10.4 [facility] ([place] Comment on above: Performed By: #### P BNP #### [place] [address] #### BMP, GFR #### [place] [address] RBC 5.04 10 6/mcL Normal 4.04-6.13 [facility] ([place] Comment on above: Performed By: #### P BNP #### [place] [address] #### BMP, GFR #### [place] [address] WBC 18.60 10 3/mcL High 4.60-10.80 [facility] ([place] Comment on above: Performed By: #### P BNP #### [place] [address] #### BMP, GFR #### [place] [address] MYCOon 07-03-2020 Mycoplasma IgM Negative Normal [facility] ([place] Comment on above: Result Comment: INTE RPRETATION OF MYCOPLASMA BY EIA (Effective 10/13/04): Negative No detectable antibodies to M. pneumoniae. Indicates absence of current or previous infection. Positive Reactive for antibodies to M. pneumoniae. Indicates a past or recent infection. Equivocal Equivocal for antibodies to M. pneumoniae. Repeat testing by an alternate method suggested. Performed By: #### A GINA, CBC, BMP, ADIFF #### [address] [address] #### GFR #### [address] [address] .GFRon 07-02-2020 GFR 59 ml/min/1.73sqm Normal [facility] ([place] Comment on above: Result Comment: GFR Population mean for , Non- Americans Ages 20-29 = 116 mL/min/1.73 sq.m. Ages 30-39 = 107 mL/min/1.73 sq.m. Ages 40-49 = 99 mL/min/1.73 sq.m. Ages 50-59 = 93 mL/min/1.73 sq.m. Ages 60-69 = 85 mL/min/1.73 sq.m. Ages 70+ = 75 mL/min/1.73 sq.m. Chronic Kidney Disease: Less than 60 mL/min/1.73 square meters End Stage Renal Disease: Less than 15 mL/min/1.73 square meters Performed By: #### P BNP #### [address] [address] #### BMP, GFR #### [address] [address] GFR Non- 48 ml/min/1.73sqm Normal [facility] ([place] Comment on above: Result Comment: GFR Population mean for , Non- Americans Ages 20-29 = 116 mL/min/1.73 sq.m. Ages 30-39 = 107 mL/min/1.73 sq.m. Ages 40-49 = 99 mL/min/1.73 sq.m. Ages 50-59 = 93 mL/min/1.73 sq.m. Ages 60-69 = 85 mL/min/1.73 sq.m. Ages 70+ = 75 mL/min/1.73 sq.m. Chronic Kidney Disease: Less than 60 mL/min/1.73 square meters End Stage Renal Disease: Less than 15 mL/min/1.73 square meters Performed By: #### P BNP #### [place] [address] #### BMP, GFR #### [place] [address] .Manual Diffon 07-02-2020 Bands 3.0 % Normal 0.0-5.0 [facility] ([place] Comment on above: Performed By: #### P BNP #### [place] [address] #### BMP, GFR #### [place] [address] Basophil %, Manual 0.0 % Normal 0.0-2.5 [facility] ([place] Comment on above: Performed By: #### P BNP #### [place] [address] #### BMP, GFR #### [place] [address] Basophil, Abs Manual 0.00 10 3/mcL Normal 0.00-0.19 [facility] ([place] Comment on above: Performed By: #### P BNP #### [place] [address] #### BMP, GFR #### [place] [address] Eosinophil %, Manual 7.0 % Normal 0.0-7.0 [facility] ([place] Comment on above: Performed By: #### P BNP #### [place] [address] #### BMP, GFR #### [place] [address] Eosinophil, Abs Manual 1.20 10 3/mcL High 0.00-0.40 [facility] ([place] Comment on above: Performed By: #### P BNP #### [place] [address] #### BMP, GFR #### [address] [address] Lymphocyte %, Manual 18.0 % Normal 10.0-50.0 [facility] ([place] Comment on above: Performed By: #### P BNP #### [place] [address] #### BMP, GFR #### [address] [address] Lymphocyte, Abs Manual 3.10 10 3/mcL Normal 0.77-3.85 [facility] ([place] Comment on above: Performed By: #### P BNP #### [place] [address] #### BMP, GFR #### [address] [address] Monocyte %, Manual 5.0 % Normal 1.7-13.0 [facility] ([place] Comment on above: Performed By: #### P BNP #### [place] [address] #### BMP, GFR #### [address] [address] Monocyte, Abs Manual 0.90 10 3/mcL Normal 0.15-1.00 [facility] ([place] Comment on above: Performed By: #### P BNP #### [place] [address] #### BMP, GFR #### [address] [address] Neutrophil %, Manual 67.0 % Normal 37.0-80.0 [facility] ([place] Comment on above: Performed By: #### P BNP #### [place] [address] #### BMP, GFR #### [address] [address] Neutrophil, Abs Manual 11.90 10 3/mcL High 2.85-6.16 [facility] ([place] Comment on above: Performed By: #### P BNP #### [place] [address] #### BMP, GFR #### [address] [address] .Morphon 07-02-2020 Anisocytosis Ql (Bld) Slight Normal [facility] ([place] Comment on above: Performed By: #### P BNP #### [place] [address] #### BMP, GFR #### [place] [address] Platelet Estimate Normal Normal [facility] ([place] Comment on above: Performed By: #### P BNP #### [place] [address] #### BMP, GFR #### [place] [address] CBCon 07-02-2020 Erythrocyte distribution width (RBC) [Ratio] 16.2 % High 11.5-14.5 [facility] ([place] Comment on above: Performed By: #### P BNP #### [place] [address] #### BMP, GFR #### [place] [address] Hematocrit (Bld) [Volume fraction] 42.2 % Normal 42.0-52.0 [facility] ([place] Comment on above: Performed By: #### P BNP #### [place] [address] #### BMP, GFR #### [place] [address] Hgb 13.8 G/dL Low 14.0-18.0 [facility] ([place] Comment on above: Performed By: #### P BNP #### [place] [id number] #### BMP, GFR #### [place] [address] MCH (RBC) [Entitic mass] 27.8 pg Normal 27.0-31.2 [facility] ([place] Comment on above: Performed By: #### P BNP #### [place] [address] #### BMP, GFR #### [place] [address] MCHC 32.8 G/dL Normal 31.8-35.4 [facility] ([place] Comment on above: Performed By: #### P BNP #### [place] [address] #### BMP, GFR #### [place] [address] MCV (RBC) [Entitic vol] 84.7 fL Normal 80.0-94.0 [facility] ([place] Comment on above: Performed By: #### P BNP #### [place] [address] #### BMP, GFR #### [place] [address] Platelet 319 10 3/mcL Normal 130-400 [facility] ([place] Comment on above: Performed By: #### P BNP #### [place] [address] #### BMP, GFR #### [place] [address] Platelet mean volume (Bld) [Entitic vol] 8.8 fL Normal 7.4-10.4 [facility] ([place] Comment on above: Performed By: #### P BNP #### [place] [address] #### BMP, GFR #### [place] [address] RBC 4.98 10 6/mcL Normal 4.04-6.13 [facility] ([place] Comment on above: Performed By: #### P BNP #### [place] [address] #### BMP, GFR #### [place] [address] WBC 17.00 10 3/mcL High 4.60-10.80 [facility] ([place] Comment on above: Performed By: #### P BNP #### [address] [address] #### BMP, GFR #### [facility] [address] [place] [address] [id number] 07-02-2020 Date of Onset [id number] Invalid Interpretation Code [facility] ([place] Comment on above: Performed By: #### P BNP #### [address] [address] #### BMP, GFR #### [place] [address] Employed in Healthcare No [facility] ([place] Comment on above: Performed By: #### P BNP #### [address] [address] #### BMP, GFR #### [place] [address] First Test Unknown [facility] ([place] Comment on above: Performed By: #### P BNP #### [address] [address] #### BMP, GFR #### [place] [address] Hospitalized No [facility] ([place] Comment on above: Performed By: #### P BNP #### [address] [address] #### BMP, GFR #### [facility] [address] [place] [address] ICU No [facility] ([place] Comment on above: Performed By: #### P BNP #### [address] [address] #### BMP, GFR #### [address] [address] Not [facility] ([place] Comment on above: Performed By: #### P BNP #### [address] [address] #### BMP, GFR #### [facility] [address] [place] [address] Resides in Congregate Care Setting No Normal [facility] ([place] Comment on above: Performed By: #### P BNP #### [address] [address] #### BMP, GFR #### [facility] [address] [place] [address] SARS-CoV-2 (COVID-19) RNA ZANDER+probe Ql (Unsp spec) Negative Normal Negative [facility] ([place] Comment on above: Performed By: #### P BNP #### [place] [address] #### BMP, GFR #### [place] [address] SARS-CoV-2 (COVID-19) RNA ZANDER+probe Ql (Unsp spec) Normal [facility] ([place] Comment on above: Result Comment: Nega tive results do not preclude SARS-CoV-2 infection and should not be used as the sole basis for patient management decisions. Negative results must be combined with clinical observations, patient history, and epidemiological information. There is a risk of false negative values resulting from improperly collected, transported, or handled specimens. There is a risk of false negative values due to the presence of sequence variants in the pathogen targets of the assay, procedural errors, amplification inhibitors in specimens, or inadequate numbers of organisms for amplification. ALYSA SARS-CoV-2 Assay is a Real-Time reverse-transcriptase polymerase chain reaction (RT-PCR) based qualitative in vitro diagnostic test intended for the qualitative detection of nucleic acid from the SARS-CoV-2 in nasopharyngeal swab specimens collected from individuals suspected of COVID-19 by their healthcare provider. Testing is limited to laboratories certified under the Clinical Laboratory Improvement Amendments of 1988 (CLIA), 42 U.S.C. ?263a, to perform moderate and high complexity tests. COVID-19 Int Performed By: #### P BNP #### [address] [address] #### BMP, GFR #### [place] [address] Symptomatic as Defined by CDC No Normal [facility] [place] Comment on above: Performed By: #### P BNP #### [address] [address] #### BMP, GFR #### [address] [address] HFPon 07-02-2020 Bili Indirect 0.3 mg/dL Normal [facility] ([place] Comment on above: Result Comment: Calc ulated by Rule Performed By: #### P BNP #### [place] [address] #### BMP, GFR #### [place] [address] Albumin/Globulin [Mass ratio] 0.7 {ratio} Low 1.1-2.5 [facility] ([place] Comment on above: Performed By: #### P BNP #### [place] [address] #### BMP, GFR #### [address] [address] ALP [Catalytic activity/Vol] 162 U/L High 40-135 [facility] ([place] Comment on above: Performed By: #### P BNP #### [place] [id number] #### BMP, GFR #### [address] [address] ALT [Catalytic activity/Vol] 85 U/L High 16-63 [facility] ([place] Comment on above: Performed By: #### P BNP #### [address] [address] #### BMP, GFR #### [address] [address] AST [Catalytic activity/Vol] 50 U/L High 10-40 [facility] ([place] Comment on above: Performed By: #### P BNP #### [place] [id number] #### BMP, GFR #### [address] [address] Bili Direct 0.1 mg/dL Normal 0.0-0.2 [facility] ([place] Comment on above: Result Comment: Use of this assay is not recommended for patients undergoing treatment with eltrombopag due to the potential for falsely elevated results. Performed By: #### P BNP #### [address] [address] #### BMP, GFR #### [place] [address] Bili Total 0.4 mg/dL Normal 0.2-1.0 [facility] ([place] Comment on above: Result Comment: Use of this assay is not recommended for patients undergoing treatment with eltrombopag due to the potential for falsely elevated results. Performed By: #### P BNP #### [address] [address] #### BMP, GFR #### [place] [address] Globulin 4.6 G/dL Normal [facility] [place] Comment on above: Performed By: #### P BNP #### [address] [address] #### BMP, GFR #### [place] [address] Total Protein 7.8 G/dL Normal 6.4-8.2 [facility] [place] Comment on above: Performed By: #### P BNP #### [address] [address] #### BMP, GFR #### [place] [address] MGon 07-02-2020 Magnesium [Mass/Vol] 1.8 mg/dL Normal 1.8-2.4 [facility] ([place] Comment on above: Performed By: #### P BNP #### [address] [address] #### BMP, GFR #### [place] [address] RFPon 07-02-2020 Albumin Level 3.2 G/dL Low 3.5-5.0 [facility] [place] Comment on above: Performed By: #### P BNP #### [address] [address] #### BMP, GFR #### [address] [address] BUN/Creatinine Ratio 25 ratio Normal 7-27 [facility] ([place] Comment on above: Performed By: #### P BNP #### [place] [address] #### BMP, GFR #### [address] [address] Calcium [Mass/Vol] 8.8 mg/dL Normal 8.4-10.2 [facility] ([place] Comment on above: Performed By: #### P BNP #### [place] [address] #### BMP, GFR #### [place] [address] Chloride [Moles/Vol] 96 mmol/L Low 98-107 [facility] ([place] Comment on above: Performed By: #### P BNP #### [place] [address] #### BMP, GFR #### [place] [address] CO2 [Moles/Vol] 20 mmol/L Low 22-29 [facility] ([place] Comment on above: Performed By: #### P BNP #### [address] [address] #### BMP, GFR #### [address] [address] Creatinine [Mass/Vol] 1.53 mg/dL High 0.70-1.30 [facility] ([place] Comment on above: Performed By: #### P BNP #### [place] [id number] #### BMP, GFR #### [place] [address] Electrolyte Balance 8.0 mEq/L Normal [facility] ([place]) Comment on above: Performed By: #### P BNP #### [address] [address] #### BMP, GFR #### [address] [address] Glucose [Mass/Vol] 115 mg/dL High 70-105 [facility] ([place] Comment on above: Performed By: #### P BNP #### [address] [address] #### BMP, GFR #### [address] [address] Phosphate [Mass/Vol] 3.2 mg/dL Normal 2.7-4.5 [facility] ([place] Comment on above: Performed By: #### P BNP #### [address] [address] #### BMP, GFR #### [address] [address] Potassium [Moles/Vol] 3.9 mmol/L Normal 3.5-5.1 [facility] ([place] Comment on above: Performed By: #### P BNP #### [address] [address] #### BMP, GFR #### [address] [address] Sodium [Moles/Vol] 124 mmol/L Low 136-145 [facility] ([place] Comment on above: Performed By: #### P BNP #### [address] [address] #### BMP, GFR #### [address] [address] Urea nitrogen [Mass/Vol] 39 mg/dL High 7-18 [facility] ([place] Comment on above: Performed By: #### P BNP #### [address] [address] #### BMP, GFR #### [address] [address] .Auto Diffon 07-01-2020 Basophil, Absolute 0.10 10 3/mcL Normal 0.00-0.19 [facility] ([place] Comment on above: Performed By: #### A GINA, CBC, BMP, ADIFF #### [address] [address] #### GFR #### [address] [address] Basophils/100 WBC (Bld) 0.7 % Normal 0.0-2.5 [facility] ([place]) Comment on above: Performed By: #### A GINA, CBC, BMP, ADIFF #### [place] [address] #### GFR #### [address] [address] Eosinophil, Absolute 0.50 10 3/mcL High 0.00-0.40 [facility] ([place] Comment on above: Performed By: #### A GINA, CBC, BMP, ADIFF #### [address] [address] #### GFR #### [address] [address] Eosinophils/100 WBC (Bld) 3.0 % Normal 0.0-7.0 [facility] [place] Comment on above: Performed By: #### A GINA, CBC, BMP, ADIFF #### [place] [address] #### GFR #### [address] [address] Lymphocyte, Absolute 1.60 10 3/mcL Normal 0.77-3.85 [facility] ([place] Comment on above: Performed By: #### A GINA, CBC, BMP, ADIFF #### [place] [address] #### GFR #### [address] [address] Lymphocytes/100 WBC (Bld) 9.1 % Low 10.0-50.0 [facility] [place] Comment on above: Performed By: #### A GINA, CBC, BMP, ADIFF #### [address] [address] #### GFR #### [address] [address] Monocyte, Absolute 1.40 10 3/mcL High 0.15-1.00 [facility] ([place] Comment on above: Performed By: #### A GINA, CBC, BMP, ADIFF #### [address] [address] #### GFR #### [address] [address] Monocytes/100 WBC (Bld) 8.0 % Normal 1.7-13.0 [facility] [place] Comment on above: Performed By: #### A GINA, CBC, BMP, ADIFF #### [address] [address] #### GFR #### [address] [address] Neutrophils/100 WBC (Bld) 79.2 % Normal 37.0-80.0 [facility] [place] Comment on above: Performed By: #### A GINA, CBC, BMP, ADIFF #### [address] [address] #### GFR #### [address] [address] .GFRon 07-01-2020 GFR Non- 30 ml/min/1.73sqm Normal [facility] ([place] Comment on above: Result Comment: GFR Population mean for , Non- Americans Ages 20-29 = 116 mL/min/1.73 sq.m. Ages 30-39 = 107 mL/min/1.73 sq.m. Ages 40-49 = 99 mL/min/1.73 sq.m. Ages 50-59 = 93 mL/min/1.73 sq.m. Ages 60-69 = 85 mL/min/1.73 sq.m. Ages 70+ = 75 mL/min/1.73 sq.m. Chronic Kidney Disease: Less than 60 mL/min/1.73 square meters End Stage Renal Disease: Less than 15 mL/min/1.73 square meters Performed By: #### P SA #### [address] [address] GFR 36 ml/min/1.73sqm Normal [facility] [place] Comment on above: Result Comment: GFR Population mean for , Non- Americans Ages 20-29 = 116 mL/min/1.73 sq.m. Ages 30-39 = 107 mL/min/1.73 sq.m. Ages 40-49 = 99 mL/min/1.73 sq.m. Ages 50-59 = 93 mL/min/1.73 sq.m. Ages 60-69 = 85 mL/min/1.73 sq.m. Ages 70+ = 75 mL/min/1.73 sq.m. Chronic Kidney Disease: Less than 60 mL/min/1.73 square meters End Stage Renal Disease: Less than 15 mL/min/1.73 square meters Performed By: #### P SA #### [address] [address] .NEUABSon 07-01-2020 Neutrophil, Absolute 14.00 10 3/mcL High 2.85-6.16 [facility] ([place] Comment on above: Performed By: #### P SA #### [address] [address] .Urinalysis Microscopic (AO) on 07-01-2020 UA Coarse Granular Casts 0-5 Abnormal [facility] [place] Comment on above: Performed By: #### A GINA, CBC, BMP, ADIFF #### [address] [address] #### GFR #### [address] [address] UA RBC None Seen Normal None Seen [facility] [place] Comment on above: Performed By: #### A GINA, CBC, BMP, ADIFF #### [address] [address] #### GFR #### [place] [address] UA Squam Epithelial 0-5 Abnormal None Seen [facility] ([place] Comment on above: Performed By: #### A GINA, CBC, BMP, ADIFF #### [address] [address] #### GFR #### [place] [address] UA WBC 0-5 Abnormal None Seen [facility] [place] Comment on above: Performed By: #### A GINA, CBC, BMP, ADIFF #### [address] [address] #### GFR #### [place] [address] CBCon 07-01-2020 Erythrocyte distribution width (RBC) [Ratio] 16.0 % High 11.5-14.5 [facility] [place] Comment on above: Performed By: #### A GINA, CBC, BMP, ADIFF #### [place] [address] #### GFR #### [place] [address] Hematocrit (Bld) [Volume fraction] 47.1 % Normal 42.0-52.0 [facility] ([place] Comment on above: Performed By: #### A GINA, CBC, BMP, ADIFF #### [place] [address] #### GFR #### [place] [address] Hgb 15.3 G/dL Normal 14.0-18.0 [facility] ([place] Comment on above: Performed By: #### A GINA, CBC, BMP, ADIFF #### [place] [address] #### GFR #### [place] [address] MCH (RBC) [Entitic mass] 27.4 pg Normal 27.0-31.2 [facility] ([place] Comment on above: Performed By: #### A GINA, CBC, BMP, ADIFF #### [place] [address] #### GFR #### [address] [address] MCHC 32.4 G/dL Normal 31.8-35.4 [facility] ([place] Comment on above: Performed By: #### A GINA, CBC, BMP, ADIFF #### [place] [address] #### GFR #### [place] [address] MCV (RBC) [Entitic vol] 84.5 fL Normal 80.0-94.0 [facility] [place] Comment on above: Performed By: #### A GINA, CBC, BMP, ADIFF #### [place] [address] #### GFR #### [place] [address] Platelet 383 10 3/mcL Normal 130-400 [facility] ([place] Comment on above: Performed By: #### A GINA, CBC, BMP, ADIFF #### [place] [address] #### GFR #### [place] [address] Platelet mean volume (Bld) [Entitic vol] 8.2 fL Normal 7.4-10.4 [facility] ([place] Comment on above: Performed By: #### A GINA, CBC, BMP, ADIFF #### [place] [address] #### GFR #### [place] [address] RBC 5.57 10 6/mcL Normal 4.04-6.13 [facility] ([place] Comment on above: Performed By: #### A GINA, CBC, BMP, ADIFF #### [place] [address] #### GFR #### [address] [address] WBC 17.70 10 3/mcL High 4.60-10.80 [facility] ([place] Comment on above: Performed By: #### A GINA, CBC, BMP, ADIFF #### [address] [address] #### GFR #### [address] [address] CMPon 07-01-2020 Albumin Level 3.9 G/dL Normal 3.5-5.0 [facility] ([place] Comment on above: Performed By: #### P SA #### [address] [address] Albumin/Globulin [Mass ratio] 0.8 {ratio} Low 1.1-2.5 [facility] ([place] Comment on above: Performed By: #### P SA #### [address] [address] ALP [Catalytic activity/Vol] 185 U/L High 40-135 [facility] ([place] Comment on above: Performed By: #### P SA #### [address] [address] ALT [Catalytic activity/Vol] 94 U/L High 16-63 [facility] ([place] Comment on above: Performed By: #### P SA #### [address] [address] AST [Catalytic activity/Vol] 60 U/L High 10-40 [facility] ([place] Comment on above: Performed By: #### P SA #### [address] [address] Bili Total 0.4 mg/dL Normal 0.2-1.0 [facility] ([place] Comment on above: Result Comment: Use of this assay is not recommended for patients undergoing treatment with eltrombopag due to the potential for falsely elevated results. Performed By: #### P SA #### [address] [address] BUN/Creatinine Ratio 21 ratio Normal 7-27 [facility] ([place] Comment on above: Performed By: #### P SA #### [address] [address] Calcium [Mass/Vol] 9.3 mg/dL Normal 8.4-10.2 [facility] ([place] Comment on above: Performed By: #### P SA #### [address] [address] Chloride [Moles/Vol] 99 mmol/L Normal 98-107 [facility] ([place] Comment on above: Performed By: #### P SA #### [place] [id number] CO2 [Moles/Vol] 19 mmol/L Low 22-29 [facility] [place] Comment on above: Performed By: #### P SA #### [place] [id number] Creatinine [Mass/Vol] 2.31 mg/dL High 0.70-1.30 [facility] ([place] Comment on above: Performed By: #### P SA #### [address] [address] Electrolyte Balance 13.0 mEq/L Normal [facility] ([place] Comment on above: Performed By: #### P SA #### [address] [address] Globulin 5.1 G/dL Normal [facility] ([place] Comment on above: Performed By: #### P SA #### [address] [address] Glucose [Mass/Vol] 135 mg/dL High 70-105 [facility] ([place] Comment on above: Performed By: #### P SA #### [place] [id number] Potassium [Moles/Vol] 4.6 mmol/L Normal 3.5-5.1 [facility] ([place] Comment on above: Performed By: #### P SA #### [place] [id number] Sodium [Moles/Vol] 131 mmol/L Low 136-145 [facility] ([place] Comment on above: Performed By: #### P SA #### [address] [address] Total Protein 9.0 G/dL High 6.4-8.2 [facility] ([place] Comment on above: Performed By: #### P SA #### [address] [address] Urea nitrogen [Mass/Vol] 48 mg/dL High 7-18 [facility] [place] Comment on above: Performed By: #### P SA #### [address] [address] LIPon 07-01-2020 Lipase Level 173 U/L Normal 73-393 [facility] ([place] Comment on above: Performed By: #### P SA #### [address] [address] TROPon 07-01-2020 Troponin I.cardiac [Mass/Vol] ng/mL Normal 0.000-0.04 0 [facility] ([place] Comment on above: Result Comment: Trop onin I reference range: 0.00-0.040 ng/mL Negative and non-diagnostic. >0.040 ng/mL Consistent with cardiac damage, increased clinical risk and possibility of myocardial infarction. Serial measurements, a rise & fall in test results, clinical history, appropriate symptoms and/or ECG changes may help assess possibility of [place]. *Other non-acute coronary syndrome conditions such as CHF, myocarditis, pulmonary emboli, sepsis and cardiac surgery could result in myocardial damage and increased troponin levels. Performed By: #### P SA #### [address] [address] UAon 07-01-2020 Color (U) Yellow Normal [facility] [place] Comment on above: Performed By: #### A GINA, CBC, BMP, ADIFF #### [address] [address] #### GFR #### [address] [address] Glucose (U) [Mass/Vol] Negative Normal Negative [facility] ([place] Comment on above: Performed By: #### A GINA, CBC, BMP, ADIFF #### [address] [address] #### GFR #### [facility] [address] [place] [address] Ketones Ql (U) Trace Abnormal Negative [facility] ([place] Comment on above: Performed By: #### A GINA, CBC, BMP, ADIFF #### [address] [address] #### GFR #### [facility] [address] [place] [address] UA Appear Clear Normal Clear [facility] ([place] Comment on above: Performed By: #### A GINA, CBC, BMP, ADIFF #### [address] [address] #### GFR #### [address] [address] UA Bili Small Abnormal Negative [facility] ([place] Comment on above: Performed By: #### A GINA, CBC, BMP, ADIFF #### [address] [address] #### GFR #### [facility] [address] [place] [address] UA Blood Trace Abnormal Negative [facility] ([place] Comment on above: Performed By: #### A GINA, CBC, BMP, ADIFF #### [address] [address] #### GFR #### [facility] [address] [place] [address] UA Leuk Est Negative Normal Negative [facility] ([place] Comment on above: Performed By: #### A GINA, CBC, BMP, ADIFF #### [address] [address] #### GFR #### [address] [address] UA Nitrite Negative Normal Negative [facility] [place] Comment on above: Performed By: #### A GINA, CBC, BMP, ADIFF #### [place] [address] #### GFR #### [place] [address] UA pH 5.0 Normal 5.0 - 8.0 [facility] ([place] Comment on above: Performed By: #### A GINA, CBC, BMP, ADIFF #### [place] [address] #### GFR #### [place] [address] UA Protein 100 mg/dL Abnormal Negative [facility] [place] Comment on above: Performed By: #### A GINA, CBC, BMP, ADIFF #### [place] [address] #### GFR #### [place] [address] UA Spec Grav >=1.030 Abnormal 1.015-1.02 5 [facility] ([place] Comment on above: Performed By: #### A GINA, CBC, BMP, ADIFF #### [place] [address] #### GFR #### [place] [address] UA Specimen Type Clean Catch Normal [facility] [place] Comment on above: Performed By: #### A GINA, CBC, BMP, ADIFF #### [place] [address] #### GFR #### [place] [address] UA Urobilinogen 0.2 E.U./dL Normal 0.2-1.0 [facility] ([place] Comment on above: Performed By: #### A GINA, CBC, BMP, ADIFF #### [place] [address] #### GFR #### [place] [address] XR CHEST 2 VIEWSon 0 XR CHEST 2 VIEWS ORIGINAL XR CHEST 2 VIEWS CLINICAL STATEMENT: cough. COMPARISON: Chest radiograph 12/10/2011 FINDINGS: The cardiac mediastinal silhouette is stable. There are median sternotomy wires and a prosthetic cardiac valve. There is mild vascular congestion and hazy airspace opacity at the medial RIGHT base. No large pleural effusion or pneumothorax. There is an air-fluid level within the stomach. No acute osseous abnormality. IMPRESSION: Mild vascular congestion and hazy airspace opacity within the medial RIGHT base. Continued follow up is recommended. Interpreted By: Leela Gonzales MD Preliminary Report By: Leela Gonzales MD Electronically Signed By: Leela Gonzales MD Dictated Date: 07/01/2020 9:35:01 PM Prelim Date: 07/01/2020 9:35:01 PM Sign Date: 07/01/2020 9:36:26 PM Ordering Provider:Ck Olmos [facility] ([place]) Vital Signs Date Time Vital Sign Value Performing Clinician Facility 02-26-2025 10:20-0400 Diastolic blood pressure 63 mm[Hg] Dr. Mark Isaacs DO Work Phone: 9(208)637-834108 [place] [address] 02-26-2025 10:20-0400 Heart rate 85 /min Dr. Mark Isaacs DO Work Phone: 9(086)288-634008 [place] [address] 02-26-2025 10:20-0400 Respiratory rate 21 /min Dr. Mark Isaacs DO Work Phone: 1(140)006-667508 [place] [address] 02-26-2025 10:20-0400 SaO2% (BldA) [Mass fraction] 98 % Dr. Mark Isaacs DO Work Phone: 4(279)947-569408 [place] [address] 02-26-2025 10:20-0400 Systolic blood pressure 97 mm[Hg] Dr. Mark Isaacs DO Work Phone: 8(388)194-130408 [place] [address] 02-26-2025 08:05-0400 Body height 190.[address] Mark Isaacs DO Work Phone: 1(451)720-694608 [place] [address] 02-26-2025 08:05-0400 Body mass index (BMI) [Ratio] 26.2 kg/m2 Dr. Mark Isaacs DO Work Phone: 9(022)323-156608 [place] [address] 02-26-2025 08:05-0400 Body temperature 97.4 [degF] Dr. Mark Isaacs DO Work Phone: 2(767)181-017908 [place] [address] 02-26-2025 08:05-0400 Body weight 95.[address] Mark Isaacs DO Work Phone: 8(507)621-635453 [place] [address] 02-23-2025 13:18-0400 Diastolic blood pressure 49 mm[Hg] Dr. Mark Isaacs DO Work Phone: 4(699)126-370053 [place] [address] 02-23-2025 13:18-0400 Heart rate 78 /min Dr. Mark Isaacs DO Work Phone: 0(709)024-093753 [place] [address] 02-23-2025 13:18-0400 Systolic blood pressure 97 mm[Hg] Dr. Mark Isaacs DO Work Phone: 4(653)503-827553 [place] [address] 02-23-2025 10:56-0400 Body temperature 96.6 [degF] Dr. Mark Isaacs DO Work Phone: 3(410)047-157753 [place] [address] 02-23-2025 10:56-0400 Respiratory rate 18 /min Dr. Mark Isaacs DO Work Phone: 0(342)471-584453 [place] [address] 02-23-2025 10:56-0400 SaO2% (BldA) [Mass fraction] 100 % Dr. Mark Isaacs DO Work Phone: 5(716)275-300153 [place] [address] 02-16-2025 14:02-0400 Body mass index (BMI) [Ratio] 26.1 kg/m2 Dr. Mark Isaacs DO Work Phone: 5(093)893-679508 [place] [address] 02-16-2025 14:02-0400 Body weight 94.[address] Mark Isaacs DO Work Phone: 1(290)202-524508 [place] [address] 02-13-2025 10:32-0400 Body mass index (BMI) [Ratio] 25.9 kg/m2 Dr. Mark Isaacs DO Work Phone: 7(016)661-004108 [place] [address] 02-13-2025 10:32-0400 Body temperature 97.4 [degF] Dr. Mark Isaacs DO Work Phone: 1(240)571-979208 [place] [address] 02-13-2025 10:32-0400 Body weight [address] Mark Isaacs DO Work Phone: 1(723)883-140653 [place] [address] 02-13-2025 10:32-0400 Diastolic blood pressure 50 mm[Hg] Dr. Mark Isaacs DO Work Phone: 7(079)338-897108 [place] [address] 02-13-2025 10:32-0400 Heart rate 82 /min Dr. Mark Isaacs DO Work Phone: 2(109)391-363653 [place] [address] 02-13-2025 10:32-0400 Respiratory rate 16 /min Dr. Mark Isaacs DO Work Phone: 6(665)667-568053 [place] [address] 02-13-2025 10:32-0400 SaO2% (BldA) [Mass fraction] 97 % Dr. Mark Isaacs DO Work Phone: 5(578)393-098353 [place] [address] 02-13-2025 10:32-0400 Systolic blood pressure 98 mm[Hg] Dr. Mark Isaacs DO Work Phone: 3(988)540-596553 [place] [address] 02-11-2025 14:30-0400 Body temperature 98.3 [degF] Dr. Mark Isaacs DO Work Phone: 6(062)563-928353 [place] [address] 02-11-2025 14:30-0400 Diastolic blood pressure 68 mm[Hg] Dr. Mark Isaacs DO Work Phone: 0(149)318-468008 [place] [address] 02-11-2025 14:30-0400 Heart rate 84 /min Dr. Mark Isaacs DO Work Phone: 9(096)353-760808 [place] [address] 02-11-2025 14:30-0400 Respiratory rate 16 /min Dr. Mark Isaacs DO Work Phone: 2(379)751-829508 [place] [address] 02-11-2025 14:30-0400 SaO2% (BldA) [Mass fraction] 100 % Dr. Mark Isaacs DO Work Phone: 4(929)108-227008 [place] [address] 02-11-2025 14:30-0400 Systolic blood pressure 101 mm[Hg] Dr. Mark Isaacs DO Work Phone: [facility] 02-11-2025 10:58-0400 Body height 190.[address] Mark Isaacs DO Work Phone: 2(219)546-348708 [place] [address] 02-11-2025 10:58-0400 Body mass index (BMI) [Ratio] 25.8 kg/m2 Dr. Mark Isaacs DO Work Phone: 1(100)514-152008 [place] [address] 02-11-2025 10:58-0400 Body weight 93.[address] Mark Isaacs DO Work Phone: 5(557)313-142753 [place] [address] 02-09-2025 14:29-0400 Body mass index (BMI) [Ratio] 26.2 kg/m2 Dr. Mark Isaacs DO Work Phone: 8(251)358-716553 [place] [address] 02-09-2025 14:29-0400 Body weight 94.[address] Mark Isaacs DO Work Phone: 4(308)370-632153 [place] [address] 02-09-2025 14:29-0400 Diastolic blood pressure 48 mm[Hg] Dr. Mark Isaacs DO Work Phone: 0(222)829-894853 [place] [address] 02-09-2025 14:29-0400 Heart rate 77 /min Dr. Mark Isaacs DO Work Phone: 1(206)938-818308 [place] [address] 02-09-2025 14:29-0400 Respiratory rate 17 /min Dr. Mark Isaacs DO Work Phone: 6(537)950-060608 [place] [address] 02-09-2025 14:29-0400 SaO2% (BldA) [Mass fraction] 98 % Dr. Mark Isaacs DO Work Phone: 9(214)291-661308 [place] [address] 02-09-2025 14:29-0400 Systolic blood pressure 96 mm[Hg] Dr. Mark Isaacs DO Work Phone: 3(670)558-063208 [place] [address] 02-09-2025 14:04-0400 Body temperature 97.7 [degF] Dr. Mark Isaacs DO Work Phone: 2(083)502-331708 [place] [address] 02-09-2025 14:04-0400 Diastolic blood pressure 52 mm[Hg] Dr. Mark Isaacs DO Work Phone: 9(140)683-860408 [place] [address] 02-09-2025 14:04-0400 Respiratory rate 16 /min Dr. Mark Isaacs DO Work Phone: [facility] 02-09-2025 14:04-0400 Systolic blood pressure 91 mm[Hg] Dr. Mark Isaacs DO Work Phone: 8(278)866-822108 [place] [address] 02-09-2025 11:57-0400 Body mass index (BMI) [Ratio] 26.1 kg/m2 Dr. Mark Isaacs DO Work Phone: 9(263)095-823008 [place] [address] 02-09-2025 11:57-0400 Body weight 94.[address] Mark Isaacs DO Work Phone: 6(608)485-765208 [place] [address] 02-09-2025 11:57-0400 Heart rate 79 /min Dr. Mark Isaacs DO Work Phone: 5(073)611-845308 [place] [address] 02-09-2025 11:57-0400 Inhaled oxygen flow rate 0 L/min Dr. Mark Isaacs DO Work Phone: 7(504)766-404308 [place] [address] 02-09-2025 11:57-0400 SaO2% (BldA) [Mass fraction] 98 % Dr. Mark Isaacs DO Work Phone: 3(444)219-169408 [place] [address] 02-06-2025 08:07-0400 Body mass index (BMI) [Ratio] 25.9 kg/m2 Dr. Mark Isaacs DO Work Phone: 7(221)618-835508 [place] [address] 02-06-2025 08:07-0400 Body weight 93.[address] Mark Isaacs DO Work Phone: 8(608)160-660308 [place] [address] 02-06-2025 08:07-0400 Diastolic blood pressure 73 mm[Hg] Dr. Mark Isaacs DO Work Phone: 4(639)330-377308 [place] [address] 02-06-2025 08:07-0400 Heart rate 83 /min Dr. Mark Isaacs DO Work Phone: 4(733)657-413908 [place] [address] 02-06-2025 08:07-0400 Respiratory rate 18 /min Dr. Mark Isaacs DO Work Phone: 1(251)614-468508 [place] [address] 02-06-2025 08:07-0400 Systolic blood pressure 108 mm[Hg] Dr. Mark Isaacs DO Work Phone: 8(872)746-669753 [place] [address] 02-05-2025 09:58-0400 Body mass index (BMI) [Ratio] 25.8 kg/m2 Dr. Mark Isaacs DO Work Phone: 6(122)951-779753 [place] [address] 02-05-2025 09:58-0400 Body temperature 98.2 [degF] Dr. Mark Isaacs DO Work Phone: 9(502)324-537653 [place] [address] 02-05-2025 09:58-0400 Body weight 93.[address] Mark Isaacs DO Work Phone: 7(771)073-601253 [place] [address] 02-05-2025 09:58-0400 Diastolic blood pressure 56 mm[Hg] Dr. Mark Isaacs DO Work Phone: 3(082)011-241353 [place] [address] 02-05-2025 09:58-0400 Heart rate 92 /min Dr. Mark Isaacs DO Work Phone: 9(848)572-346553 [place] [address] 02-05-2025 09:58-0400 Respiratory rate 18 /min Dr. Mark Isaacs DO Work Phone: 5(334)042-095353 [place] [address] 02-05-2025 09:58-0400 SaO2% (BldA) [Mass fraction] 100 % Dr. Mark Isaacs DO Work Phone: 1(297)869-382108 [place] [address] 02-05-2025 09:58-0400 Systolic blood pressure 89 mm[Hg] Dr. Mark Isaacs DO Work Phone: 2(758)833-501553 [place] [address] 02-03-2025 09:22-0400 Body mass index (BMI) [Ratio] 26.1 kg/m2 Dr. Mark Isaacs DO Work Phone: 1(755)622-278508 [place] [address] 02-03-2025 09:22-0400 Body temperature 99.1 [degF] Dr. Mark Isaacs DO Work Phone: [facility] 02-03-2025 09:22-0400 Body weight 94.[address] Mark Isaacs DO Work Phone: [facility] 02-03-2025 09:22-0400 Diastolic blood pressure 61 mm[Hg] Dr. Mark Isaacs DO Work Phone: [facility] 02-03-2025 09:22-0400 Heart rate 176 /min Dr. Mark Isaacs DO Work Phone: [facility] 02-03-2025 09:22-0400 Respiratory rate 16 /min Dr. Mark Isaacs DO Work Phone: [facility] 02-03-2025 09:22-0400 SaO2% (BldA) [Mass fraction] 98 % Dr. Mark Isaacs DO Work Phone: [facility] 02-03-2025 09:22-0400 Systolic blood pressure 104 mm[Hg] Dr. Mark Isaacs DO Work Phone: [facility] 01-20-2025 17:14-0400 Diastolic blood pressure 66 mm[Hg] Lazaro Perry MD Work Phone: [facility] 01-20-2025 17:14-0400 Heart rate 89 /min Lazaro Perry MD Work Phone: [facility] 01-20-2025 17:14-0400 Respiratory rate 18 /min Lazaro Perry MD Work Phone: [facility] 01-20-2025 17:14-0400 SaO2% (BldA) [Mass fraction] 98 % Lazaro Perry MD Work Phone: [facility] 01-20-2025 17:14-0400 Systolic blood pressure 103 mm[Hg] Lazaro Perry MD Work Phone: [facility] 01-20-2025 16:48-0400 Body temperature 98.49 [degF] Lazaro Perry MD Work Phone: [facility] 01-20-2025 11:39-0400 Body height 191.8 cm Lazaro Perry MD Work Phone: [facility] 01-20-2025 11:39-0400 Body mass index (BMI) [Ratio] 24.78 kg/m2 Lazaro Perry MD Work Phone: [facility] 01-20-2025 11:39-0400 Body weight 91.13 kg Lazaro Perry MD Work Phone: [facility] 12-29-2024 10:32-0400 Body mass index (BMI) [Ratio] 25.9 kg/m2 Dr. Mark Isaacs DO Work Phone: 9(933)430-861008 [place] [address] 12-29-2024 10:32-0400 Body temperature 97.8 [degF] Dr. Mark Isaacs DO Work Phone: 7(126)963-089108 [place] [address] 12-29-2024 10:32-0400 Body weight 94.[address] Mark Isaacs DO Work Phone: 3(843)576-467908 [place] [address] 12-29-2024 10:32-0400 Diastolic blood pressure 63 mm[Hg] Dr. Mark Isaacs DO Work Phone: 3(719)640-499008 [place] [address] 12-29-2024 10:32-0400 Heart rate 107 /min Dr. Mark Isaacs DO Work Phone: [facility] 12-29-2024 10:32-0400 Respiratory rate 18 /min Dr. Mark Isaacs DO Work Phone: 6(337)314-412308 [place] [address] 12-29-2024 10:32-0400 SaO2% (BldA) [Mass fraction] 99 % Dr. Mark Isaacs DO Work Phone: [facility] 12-29-2024 10:32-0400 Systolic blood pressure 99 mm[Hg] Dr. Mark Isaacs DO Work Phone: [facility] 12-10-2024 10:22-0500 Body mass index (BMI) [Ratio] 27.1 kg/m2 Dr. Mark Isaacs DO Work Phone: 3(664)217-073008 [place] [address] 12-10-2024 10:22-0500 Body temperature 98 [degF] Dr. Mark Isaacs DO Work Phone: 4(039)618-195008 [place] [address] 12-10-2024 10:22-0500 Body weight 98.[address] Mark Isaacs DO Work Phone: 9(543)178-980608 [place] [address] 12-10-2024 10:22-0500 Diastolic blood pressure 55 mm[Hg] Dr. Mark Isaacs DO Work Phone: 2(344)350-556553 [place] [address] 12-10-2024 10:22-0500 Heart rate 146 /min Dr. Mark Isaacs DO Work Phone: 5(961)654-973753 [place] [address] 12-10-2024 10:22-0500 Respiratory rate 16 /min Dr. Mark Isaacs DO Work Phone: 2(568)609-387853 [place] [address] 12-10-2024 10:22-0500 SaO2% (BldA) [Mass fraction] 99 % Dr. Mark Isaacs DO Work Phone: 3(373)077-615708 [place] [address] 12-10-2024 10:22-0500 Systolic blood pressure 101 mm[Hg] Dr. Mark Isaacs DO Work Phone: 8(365)169-374108 [place] [address] 11-26-2024 19:56-0500 Body temperature 97.8 [degF] Dr. Mark Isaacs DO Work Phone: 2(048)924-088208 [place] [address] 11-26-2024 19:56-0500 Diastolic blood pressure 64 mm[Hg] Dr. Mark Isaacs DO Work Phone: 2(172)678-235308 [place] [address] 11-26-2024 19:56-0500 Heart rate 88 /min Dr. Mark Isaacs DO Work Phone: 3(739)438-595508 [place] [address] 11-26-2024 19:56-0500 Respiratory rate 16 /min Dr. Mark Isaacs DO Work Phone: [facility] 11-26-2024 19:56-0500 SaO2% (BldA) [Mass fraction] 97 % Dr. Mark Isaacs DO Work Phone: [facility] 11-26-2024 19:56-0500 Systolic blood pressure 101 mm[Hg] Dr. Mark Isaacs DO Work Phone: [facility] 11-26-2024 10:37-0500 Body weight 98.[address] Mark Isaacs DO Work Phone: [facility] 11-26-2024 04:43-0500 Body mass index (BMI) [Ratio] 45.6 kg/m2 Dr. Mark Isaacs DO Work Phone: [facility] 11-25-2024 11:40-0500 Inhaled oxygen flow rate 2 L/min Dr. Mark Isaacs DO Work Phone: [facility] 07-25-2024 10:13-0400 Body temperature 97.11 [degF] Thomas Moomaw RUBBER FACTORY WORKER.CONCESSION WORKER Work Phone: [facility] 07-25-2024 10:13-0400 Body weight 94.6 kg Thomas Moomaw RUBBER FACTORY WORKER.CONCESSION WORKER Work Phone: [facility] 07-25-2024 10:13-0400 Diastolic blood pressure 61 mm[Hg] Thomas Moomaw RUBBER FACTORY WORKER.CONCESSION WORKER Work Phone: [facility] 07-25-2024 10:13-0400 Heart rate 110 /min Thomas Moomaw RUBBER FACTORY WORKER.CONCESSION WORKER Work Phone: [facility] 07-25-2024 10:13-0400 Respiratory rate 18 /min Thomas Moomaw RUBBER FACTORY WORKER.CONCESSION WORKER Work Phone: [facility] 07-25-2024 10:13-0400 SaO2% (BldA) [Mass fraction] 100 % Thomas Moomaw RUBBER FACTORY WORKER.CONCESSION WORKER Work Phone: [facility] 07-25-2024 10:13-0400 Systolic blood pressure 100 mm[Hg] Thomas Garcia RUBBER FACTORY WORKER.CONCESSION WORKER Work Phone: [facility] 02-21-2023 11:40-0400 Body height 190.5 cm [facility] Encounters Encounter Date Encounter Type Care Provider Facility Start: 03-04-2025 End: 03-04-[address] Mark Isaacs DO Work Phone: [facility] Work Phone: Start: 03-04-2025 End: 03-04-[address] Trish Ortiz MD -Cat Scan [facility] Work Phone: Start: 03-04-2025 Encounter for other preprocedural examination [facility] Start: 03-04-2025 End: 03-04-20[facility] Start: 02-26-2025 End: 02-26-[address] Mark Isaacs DO Work Phone: [facility] Work Phone: Start: 02-26-2025 End: 02-26-[address] Trish Ortiz MD -Cat Scan [facility] Work Phone: Start: 02-26-2025 End: 02-26-[facility] Start: 02-23-2025 ambulatory Jose Ramachandran Facility:[facility] Start: 02-23-[address] Linh Ortiz MD -[facility] Start: 02-13-[address] Mark Isaacs DO Work Phone: [facility] Start: 02-13-2025 End: 02-13-2025 Patient encounter procedure Johny SANTIAGO [facility] Work Phone: Start: 02-13-2025 End: 02-13-2025 Patient encounter status Johny SANTIAGO [facility] Start: 02-13-2025 End: 02-13-2025 ambulatory Jose Ramachandran Facility[facility] Start: 02-11-2025 ambulatory Maya Robotham Facilit y:[facility] Start: 02-11-2025 Non-patient / Non-visit Dr. Winston Live MD -[facility] Start: 02-11-2025 End: 02-11-2025 Admission to same day surgery center Dr. Maya Live MD -[facility] Start: 02-11-2025 End: 02-11-[address] Mark Isaacs DO Work Phone: [facility] Work Phone: Start: 02-09-2025 End: 02-09-[address] Maya Live MD -[facility] Work Phone: Start: 02-09-2025 End: 02-09-2025 ambulatory Jose Madie Facility:[facility] Start: 02-09-[address] Linh Ortiz MD -[facility] Start: 02-06-2025 End: 02-06-[address] Mark Morales MD -[facility] Work Phone: Start: 02-06-2025 End: 02-06-2025 ambulatory Jose Madie Facility:[facility] Start: 02-05-2025 End: 02-05-2025 Patient encounter procedure Geeta Rodgers UPPER LEATHER SORTER-C -[facility] Work Phone: Start: 02-05-2025 End: 02-05-2025 ambulatory Jose Madie Facility:[facility] Start: 02-03-2025 End: 02-03-[address] Trish Ortiz MD -[facility] Work Phone: Start: 02-03-2025 End: 02-03-2025 ambulatory Jose Madie Facility:[facility] Start: 01-20-2025 End: 01-20-2025 ambulatory DIRK HUANG Facility:[facility] Start: 01-20-2025 End: 01-20-2025 Subsequent hospital visit by physician Lazaro Perry MD Work Phone: [facility] Comment on above: Other ulcerative col itis with complication Start: 01-19-2025 ambulatory LAZARO PERRY Facility :[facility] Start: 01-02-2025 ambulatory TRISH Bahena lity:[facility] Start: 12-29-2024 End: 12-29-[address] Trish Ortiz MD -[facility] Work Phone: Start: 12-29-2024 End: 12-29-2024 ambulatory Jose Madie Facility:[facility] Start: 12-10-2024 End: 12-10-[address] Trish Ortiz MD -[facility] Work Phone: Start: 12-10-2024 End: 12-10-2024 ambulatory Jose Madie Facility:[facility] Start: 12-05-2024 End: 12-05-2024 Patient encounter procedure Mitra GLASS -[facility] Work Phone: Start: 12-05-2024 End: 12-05-2024 ambulatory Jose Madie Facility:[facility] Start: 11-26-2024 Non-patient / Non-visit Dr. Hui Matthews MD -[facility] Work Phone: Start: 11-25-2024 Non-patient / Non-visit Kailash Hameed nd DO [facility] Start: 11-24-2024 Non-patient / Non-visit Kailash Hameed nd DO -[facility] Start: 11-24-2024 ambulatory Aniket Paniagua Facility:[facility] Start: 11-24-2024 Non-patient / Non-visit Dr. Aniket sánchez MD -[facility] Start: 11-23-2024 Non-patient / Non-visit Kailash Hameed nd DO -[facility] Start: 11-23-2024 Non-patient / Non-visit Dr. Doreen Love MD -[facility] Work Phone: Start: 11-22-2024 ambulatory No Primary Car e Physician Facility:[facility] Start: 11-22-2024 End: 11-26-2024 Evaluation and management of inpatient Dr. Salena Matthews MD -Pro[facility] Care Unit Work Phone: Start: 07-25-2024 End: 07-25-2024 ambulatory SELF Facility:[facility] Start: 07-25-2024 End: 07-25-2024 Patient encounter procedure Thomas Garcia APRN.CONCESSION WORKER Work Phone: [facility] Comment on above: Insect bites and sti ngs, initial encounter (Primary Dx) Start: 04-25-2023 End: 04-25-2023 ambulatory [facility] Work Phone: Start: 04-25-2023 End: 04-25-2023 Patient encounter procedure [facility] Work Phone: Start: 02-21-2023 End: 02-21-2023 Patient encounter procedure [facility] Work Phone: Procedures Date Procedure Procedure Detail Performing Clinician Start: 03-04-2025 CT of thorax, abdomen and pelvis with contrast Dr. Mark Isaacs DO Work Phone: Start: 02-26-2025 Biopsy/Inj or Needle Placement Dr. Mark Isaacs DO Work Phone: Start: 02-11-2025 Plain chest X-ray Dr. Mark Isaacs DO Work Phone: Start: 02-11-[address] Mark Isaacs DO Work Phone: Start: 02-11-2025 Implantation to cardiovascular system Dr. Mark Isaacs DO Work Phone: Start: 02-06-2025 Evaluation of diagnostic study results Dr. Mark Isaacs DO Work Phone: Start: 02-03-[address] Mark Isaacs DO Work Phone: Start: 02-03-2025 Serum inorganic phosphate measurement Dr. Mark Isaacs DO Work Phone: Start: 02-03-2025 Total iron binding capacity measurement Dr. Mark Isaacs DO Work Phone: Start: 01-20-2025 Basic metabolic panel calcium total Richar Nolasco MD Work Phone: Start: 01-20-2025 CONTINUOUS CARDIAC MONITORING STRIP Other Other Start: 12-16-2024 Positron emission tomography with computed tomography Dr. Mark Isaacs DO Work Phone: Start: 11-26-[address] Mark Isaacs DO Work Phone: Start: 11-26-2024 Measurement of renal function Dr. Mark Isaacs DO Work Phone: Comment on above: GFR Calc Start: 11-25-2024 Biopsy/Inj or Needle Placement Dr. Mark Isaacs DO Work Phone: Start: 11-25-2024 Blood disorder - initial assessment Dr. Mark Isaacs DO Work Phone: Start: 11-24-2024 Albumin/Globulin ratio Dr. Mark Hyde Work Phone: Start: 11-24-2024 Bmghg-1-Pfkgopeijtl measurement Dr. Doc Isaacs DO Work Phone: Comment on above: [employer] Electrochemiluminescen ce Immunoassay(ECLIA)Values obtained with different assay methods or kits cannotbe used interchangeably. Results cannot be interpreted asabsolute evidence of the presence or absence of malignantdisease.This test is not interpretable in females. Start: 11-24-[address] Mark Isaacs DO Work Phone: Comment on above: The atypical pANCA pattern has been obse rved in asignificant percentage of patients with ulcerative colitis,primary sclerosing cholangitis and autoimmune hepatitis. Start: 11-24-2024 Antibody to centromere measurement Dr. Yasmin Isaacs DO Work Phone: Comment on above: Previous reported result: TNP AIEdited b y: INFCE on 11/26/24:1408 AMENDED REPORT 11/26/24 1408 ANTI-CENT B previously reported as: Test not performed Start: 11-24-2024 Antibody to extractable nuclear antigen measurement Dr. 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 SAENZ Ab previously reported as: Test not performed Start: 11-24-2024 Antibody to SEEMA-[address] Mark mercer DO Work Phone: Comment on above: Previous reported result: TNP AIEdited b y: INFCE on 11/26/24:1408 AMENDED REPORT 11/26/24 1408 ANTI-SEEMA previously reported as: Test not performed Start: 11-24-2024 Antibody to lupus La protein measurement Dr. 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 Anti-SS-B previously reported as: Test not performed Start: 11-24-2024 Antibody to SS-A measurement Dr. Mark mercer DO Work Phone: Comment on above: Previous reported result: TNP AIEdited b y: INFCE on 11/26/24:1408 AMENDED REPORT 11/26/24 1408 Anti-SS-A previously reported as: Test not performed Start: 11-24-[address] 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 ANTICHROMATIN previously reported as: Test not performed Start: 11-24-[address] Mark mercer DO Work Phone: Start: 11-24-2024 SENIOR IT SECURITY ANALYST antibody measurement Dr. 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 SENIOR IT SECURITY ANALYST Ab previously reported as: Test not performed Start: 11-24-[address] Mark saleem DO Work Phone: Start: 11-24-[address] Mark Isaacs DO Work Phone: Start: 11-23-2024 Assay of phosphorus inorganic Dr. Mark Isaacs DO Work Phone: Start: 11-22-2024 Urnls dip stick/tablet reagent auto microscopy Dr. Mark Isaacs DO Work Phone: Start: 11-22-2024 Computed tomography of abdomen and pelvis with intravenous contrast Dr. Mark Isaacs DO Work Phone: Start: 11-22-2024 CT angiography of chest with contrast Dr. Mark Isaacs DO Work Phone: Start: 11-22-2024 Measurement of occult blood in stool specimen using immunoassay Dr. Mark Isaacs DO Work Phone: Start: 11-22-2024 SARS-CoV-2, Influenza & RSV (PCR) Dr. Neelam Isaacs DO Work Phone: Start: 09-10-2001 Lipid 1996 panel - Serum or Plasma Lazaro Perry MD Work Phone: Plan of Treatment Date Care Activity Detail Author Start: 01-20-2026 Potassium [Moles/vol ume] in Serum or Plasma POTASSIUM [facility] Start: 06-08-2025 Influenza vaccination INFLUENZ A VACCINE (Season Ended) [facility] Start: 03-05-2025 Venous catheter care management [facility] Start: 02-26-2025 Biopsy liver needle percutaneous NEEDLE BIOPSY OF LIVER PERQ [facility] Start: 02-26-2025 Venous catheter care management [facility] Start: 02-26-2025 Catheterization of vein [facility] Start: 02-26-2025 Oxygen therapy [facility] Start: 02-26-2025 Patient discharge [facility] Start: 02-26-2025 Vital signs measurements [facility] Start: 02-16-2025 Venous catheter care management [facility] Start: 02-11-2025 Patient discharge [facility] Start: 02-11-2025 Anesthesia access ce ntral venous circulation ANESTH VASCULAR ACCESS [facility] Start: 02-11-2025 Insj tunneled ctr va d w/subq port age 5 yr/> INSERT TUNNELED CV CATH [facility] Start: 02-04-2025 Patient referral [facility] Work Phone: Start: 02-03-2025 Patient referral [facility] Work Phone: Start: 12-29-2024 Patient referral [facility] Work Phone: Start: 12-10-2024 Patient referral [facility] Work Phone: Start: 11-26-2024 Patient discharge [facility] Start: 11-25-2024 Provision of activit y privileges [facility] Start: 11-25-2024 Catheterization of vein [facility] Start: 11-25-2024 Vital signs measurements [facility] Start: 11-23-2024 Administration of bl ood product [facility] Start: 11-23-2024 End: 11-23-2024 Administration of blood product [facility] Start: 11-23-2024 Inhalation therapy procedure [facility] Start: 11-22-2024 End: 11-23-2024 [facility] Start: 11-22-2024 Administration of bl ood product [facility] Start: 11-22-2024 Application of intermittent pneumatic compression device [facility] Start: 11-22-2024 Following clinical p athway protocol [facility] Start: 11-22-2024 Administration of bl ood product [facility] Start: 11-22-2024 Application of elast ic bandage [facility] Start: 11-22-2024 Assessment of risk o f venous thromboembolism [facility] Start: 11-22-2024 Catheterization of vein [facility] Start: 11-22-2024 Documentation procedure [facility] Start: 11-22-2024 Elevation of affecte d extremity [facility] Start: 11-22-2024 Insertion of cathete r into peripheral vein [facility] Start: 11-22-2024 Measuring intake and output [facility] Start: 11-22-2024 Notification of physician [facility] Start: 11-22-2024 Patient education [facility] Start: 11-22-2024 Patient referral to dietitian [facility] Start: 11-22-2024 Providing care accor ding to standard [facility] Start: 11-22-2024 Referral to gastroenterology service [facility] Start: 11-22-2024 Referral to occupati onal therapist [facility] Start: 11-22-2024 Referral to service [facility] Start: 11-22-2024 Admission procedure [facility] Start: 11-22-2024 Administration of bl ood product [facility] Start: 11-22-2024 Patient referral to dietitian [facility] Start: 06-08-2024 Covid-19 Vaccine ( season) Covid-19 Vaccine () [facility] Start: 06-08-2024 Influenza vaccination Influenza Vacc ine (#1) [facility] Start: 01-31-2020 Pneumococcal vaccination PNEUM OCOCCAL VACCINE SERIES (1 of 1 - PCV) [facility] Start: 01-31-2020 Shingrix Vaccine (1 of 2) Agarwal grix Vaccine (1 of 2) [facility] Start: 01-31-2020 Zoster vaccine hzv l glen for subcutaneous use ZOSTER (SHINGLES) VACCINE (1 of 2) [facility] Start: 2015 Diabetes Screening Diabetes Screenin g [facility] Start: 2015 Screening for malign ant neoplasm of colon [facility] Start: 2010 Lipid panel LIPID SCREENING [facility] Start: 2005 Lipid panel Lipid Screening [facility] Start: 1989 Hepatitis B vaccination HEP B VACCINE (1 of 3 - 19+ 3-dose series) [facility] Start: 1989 Hepatitis B Vaccine (1 of 3 - 19+ 3-dose series) Hepatitis B Vaccine (1 of 3 - 19+ 3-dose series) [facility] Start: 1989 Third diphtheria, te tanus and acellular pertussis (DTaP) vaccination TDAP (ADULT) [facility] Start: 1989 Urine microalbumin profile DTa P,Tdap,Td Vaccine (1 - Tdap) [facility] Start: 01-31-1988 Anxiety Screening Anxiety Screening [facility] Start: 01-31-1988 Depression Screening Depression Scre ening [facility] Start: 01-31-1988 Hepatitis C screening Hepatitis C Sc reening [facility] Start: 01-31-1988 HIV screening HIV Screening [facility] Start: 1985 HIV screening HIV SCREENING DISCUSSION [facility] Start: 1970 Hepatitis C screening HEPATITI S C VIRUS SCREENING [facility] Start: 1970 Tetanus vaccination TETANUS [facility] CT Abdomen and Pelvi s W contrast IV [facility] Lipid 1996 panel - S ariane or Plasma [facility] Patient Education [facility] Work Phone: Patient referral [facility] Work Phone: Positron emission tomography with computed tomography [facility] Prostate specific an tigen measurement [facility] End: 01-20-2025 Standard ECG ECG ECG Routine One Time for 1 Occurrences starting 01/20/2025 until 01/20/2025 [facility] Comment on above: One Time for 1 Occur rences starting 01/20/2025 until 01/20/2025 SURG PATH REQUEST [facility] Work Phone: Comment on above: Release Upon Orderin g for 1 Occurrences starting 01/20/2025, 1 completed Thyroid stimulating hormone measurement [facility] Immunizations Immunization Date Immunization Notes Care Provider Nitesh eason 02-11-2022 COVID-19 original vaccine, age 12+ yr, monovalent (PFIZER-BIONTECH - ALCARAZ TOP) Thomas Garcia RUBBER FACTORY WORKER.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 WORKER Work Phone: [facility] 08-27-2021 COVID-19 original vaccine, age 12+ yr, monovalent (PFIZER-BIONTECH - PURPLE TOP) Thomas Garcia RUBBER FACTORY WORKER.CONCESSION WORKER Work Phone: [facility] 07-30-2021 COVID-19 original vaccine, age 12+ yr, monovalent ([employer] - PURPLE TOP) Thomas Garcia MORENO.CONCESSION WORKER Work Phone: [facility] 04-21-2014 tetanus toxoid, redu dane diphtheria toxoid, and acellular pertussis vaccine, adsorbed [facility] Payers Date Payer Category Payer Medicaid (Managed Care) DERRICK zavaleta [id number] 2024 Unknown [id number] 2024 Self-pay [id number] 2024 Self-pay [id number] 1970 Unknown [id number] ..[id number]. 594 1970 Unknown [id number] ..1.876384.3.579.2. 594 Unknown [id number] ..1.291289.3.579.2. 462 Unknown [id number] ..1.358993.3.579.2. 462 Unknown [id number] ..1.405544.3.579.2. 462 Unknown [id number] ..1.904524.3.579.2. 462 Unknown [id number] 2.16.840.1.072175.3.579.2. 462 Unknown [id number] 2.16.840.1.919993.3.579.2. 462 Unknown [id number] 2.16.840.1.528692.3.579.2. 462 Unknown [id number] 2.16.840.1.978899.3.579.2. 462 Unknown [id number] 2.16.840.1.431263.3.579.2. 462 Unknown [id number] 2.16.840.1.043976.3.579.2. 462 Unknown [id number] 2.16.840.1.081697.3.579.2. 462 Unknown [id number] 2.16.840.1.494924.3.579.2. 462 Unknown [id number] 2.16.840.1.879592.3.579.2. 462 Unknown [id number] 2.16.840.1.440893.3.579.2. 462 Unknown [id number] 2.16.840.1.535913.3.579.2. 462 Unknown [id number] 2.16.840.1.046533.3.579.2. 462 Unknown [id number] 2.16.840.1.888672.3.579.2. 462 Unknown [id number] 2.16.840.1.196562.3.579.2. 462 Unknown [id number] 2.16.840.1.462316.3.579.2. 462 Unknown [id number] 2.16.840.1.333856.3.579.2. 462 Unknown [id number] 2.16.840.1.833965.3.579.2. 462 Unknown [id number] 2.16.840.1.537964.3.579.2. 462 Unknown [id number] 2.16.840.1.493322.3.579.2. 462 Social History Date Type Detail Facility Start: 06-25-2020 Tobacco smoking stat us NCIS Unknown if ever smoked [facility] Start: 04-16-2020 Occasional [facility] Start: 04-16-2020 None [facility] Start: 04-16-2020 Alone [facility] Start: 04-16-2020 Non-smoker [facility] Start: 1970 Sex Assigned At Male W [facility] Start: 07-25-2024 End: 02-26-2025 Tobacco smoking status NHIS Never smoked tobacco [facility] Start: 07-25-2024 End: 01-02-2025 Tobacco use and exposure Smokeless tobacco non-user [facility] Start: 07-25-2024 End: 01-02-2025 History of Social function [facility] Start: 07-25-2024 End: 01-02-2025 Tobacco use panel [facility] Start: 1970 Sex assigned at Not on file [facility] Start: 01-02-2025 Alcoholic beverage intake Current drinker of alcohol (finding) [facility] Start: 01-02-2025 Alcohol Comment social [facility] Start: 11-10-2012 Sex Male (finding) [facility] Medical Equipment Procedure Code Equipment Code Equipment Origin al Text Equipment Identifier Dates Insertion, vascular access port ([id number]) Vascular port/catheter [id number] [facility] Start: 02-11-2025 Goals Date Patient Goal Desired Activity /State Functional Status Date Assessment Result Facility 11-26-2024 Functional status Chair [facility] Work Phone: Mental Status Date Assessment Result Facility 02-26-2025 Cognitive function Awake;Alert;Appropriat e [facility] Work Phone: 02-23-2025 Cognitive function Awake;Alert;A ppropriate;Foll ows Commands [facility] Work Phone: 02-16-2025 Cognitive function Arousable To Voice/Nam e [facility] Work Phone: 02-11-2025 Cognitive function Voice/Name [facility] Work Phone: 02-09-2025 Cognitive function Voice/Name [facility] Work Phone: 11-26-2024 Cognitive function Voice/Name [facility] Work Phone: Clinical Notes 2019 to 03-04-2025 Note Date & Type Note Facility 03-04-2025 Radiology Diagnostic study note [facility] Imaging Services [address] [place], [place] [id number] CT Chest, Abd, Pel w/Contrast MR#: [id number] Acct: [id number] Name: DENY BRONSON Rep #: [id number] : 1970 M 55 From: Rayna Lopes DO PCP: JACK Mccall Status: REG CLI Study:CT Chest, Abd, Pel w/Contrast Date of E xam: 03/04/25 Exam# [id number] Ordering Dr: Trish Ortiz MD PROCEDURE: CT CHEST, ABD, PEL W/CONTRAST 03/04/2025 REASON FOR EXAM: F/U METS CANCER UNKNOWN PRIMARY TECHNIQUE: Chest, abdomen and pelvis CT with intravenous contrast. Coronal and Sagittal reconstruction series were provided. One or more dose reduction techniques were used (e.g., Automated exposure control, adjustment of the mA and/or kV according to patient size, use of iterative reconstruction technique. PATIENT PREPARATION: Per protocol ORAL CONTRAST TYPE: None. AMOUNT: mL CONTRAST: Isovue 370 VOLUME: 81mL Gauge IV RADIATION DOSE SUMMARY: CTDlvol: 55 mGy DLP: 2046 mGycm COMPARISON: CT of the abdomen and pelvis dated November 22, 2024 and PET-CT dated 12/16/2024. MRI of the abdomen dated 11/24/2024. FINDINGS: CT CHEST: Hardware: Right-sided Port-A-Cath with its tip in the SVC. Lymph nodes: Mediastinal adenopathy. Heart and Vasculature: Cardiomegaly. No pericardial effusion. Lungs and Airways: Mild dependent atelectasis. Pleura: No pleural effusion or pneumothorax. Bones: Unremarkable CT ABDOMEN/PELVIS: Liver: Mild periportal edema. Heterogeneous and ill-defined mass of the left hepatic lobe with intrahepatic ductal dilatation. Focal cholangiocarcinoma can not be completely excluded. Gallbladder: Unremarkable. Spleen: Heterogeneous parenchyma of the spleen, underlying Mets can not be excluded. Pancreas: Normal size without evidence of mass surrounding inflammation or ductal dilation. Adrenals: Unremarkable Kidneys: Normal renal sizes. No hydronephrosis. Bladder: Unremarkable Reproductive Organs: Heterogeneous prostate gland with areas of coarse calcification. Bowel: The stomach is grossly unremarkable. Fluid-filled distal small bowel, likely representing ileus. Surgical sutures along the rectum consistent with prior resection. Status post colectomy. Appendix: The appendix is not visualized. Lymph nodes: Retroperitoneal adenopathy. Vasculature: Unremarkable Peritoneum / Retroperitoneum: Unremarkable Soft tissue:. Fluid-filled umbilical hernia. Fluid-filled left inguinal hernia. Bones: Unremarkable CT/CT Chest, Abd, Pel w/Contrast IMPRESSION: Mediastinal adenopathy. Redemonstration of a heterogeneous and ill-defined mass of the left hepatic lobewith intrahepatic ductal dilatation, findings are concerning for focal cholangiocarcinoma. Retroperitoneal adenopathy. Heterogeneous parenchyma of the spleen, suspicious for Mets. Please see other nonacute findings as described above. Reading Location: [place] CC: Dr. Trish Ortiz MD; JACK Mccall ~ Oncology Registrar: Signed [facility] 02-26-2025 Radiology Diagnostic study note [facility] Imaging Services [address] [place], [place] [address] Biopsy/Inj or Needle Placement MR#: [id number] Acct: [id number] Name: DENY BRONSON Rep #: [id number] : 1970 M 55 From: Tylor Montgomery MD PCP: JACK Mccall Status: REG CLI Study:Biopsy/Inj or Needle Placement Date of Exam: 02/26/25 Exam# [id number] Ordering Dr: Trish Ortiz MD PROCEDURE: BIOPSY/INJ OR NEEDLE PLACEMENT 02/26/2025 REASON FOR EXAM: Hepatic mass. TECHNIQUE: CT-guided liver biopsy. The procedure as well as the benefits and possible complications including infection and bleeding were explained to the patient. Informed consent was obtained. The patient was in the supine position. The overlying skin was prepped and draped in the usual sterile fashion. Conscious sedation was performed. The patient received 2 mg of Versed and 50 mcg of fentanyl intravenously. Conscious sedation was started at 8:56 a.m. and terminated at 9:17 a.m.. The patient was independentlymonitored by the department nurse. Following local anesthetic application, an 18 gauge core biopsy needle was placed into the mass in the left lobe of the liver. 5 core biopsies were obtained. The specimen was deemed adequate for evaluation bythe pathologist. One or more dose reduction techniques were used (e.g., Automated exposure control, adjustment of the mA and/or kV according to patient size, use of iterative reconstruction technique). RADIATION DOSE SUMMARY: CTDlvol: 20.5 mGy DLP: 364.5 mGycm COMPARISON: Prior CT scan of the abdomen dated November 25, 2024. FINDINGS: Successful biopsy of the mass in the left lobe of the liver. CT/Biopsy/Inj or Needle Placement IMPRESSION: Successful CT-guided biopsy of the mass in the left lobe of the liver utilizing an 18 gauge core biopsy needle. The patient tolerated the procedure well. Reading Location: [place] [address] CC: Dr. Trish Ortiz MD; JACK Mccall ~ Oncology Registrar: Signed [facility] 02-11-2025 Consult note [facility] 02-11-2025 History and physi paula note Note Date/Time February 11, 2025 1:06pm [facility] Medical Records Department [address] [place] [address] History & Physical Exam 02/11/25 1304 MR#: [id number] Acct: [id number] Name: DENY BRONSON Rep #:[id number] : 1970 55 From: Maya Live MD PCP: JACK Mccall Status:[facility] Location: [place] [address] History and Physical Date of Admission: 02/11/25 Date of Service: 02/09/25 MR#: [id number] Acct: [id number] Name: DENY BRONSON Rep #: [id number] : 1970 Provider: Dr. Maya Live MD Age/Sex: 55/M Location: [facility] Status: Signed Intake Vital Signs 02/03/2509:22 02/09/2511:57 02/09/2514:29 Height 6 ft 3 in 6 ft 3 in 6 ft 3 in Weight: 209 lb 6 oz BMI 26.2 BP 96/48 L Blood Pressure Location Rt brachial Position Sitting Respiration 17 Pulse 77 Pulse Source Monitor Pulse Oximetry (%) 98 Oxygen Delivery Method room air Intake Visit Reasons: PORT PLACEMENT Chief Complaint: port placement Is patient in pain?: Yes Allergies acetaminophen Allergy (Mild, Verified 02/10/25 08:20) ItchingPenicillins (PCN) Allergy (Verified 02/10/25 08:20) PT UNSURE OF REACTION Medications ?Medication ?Instructions ?Recorded ?Confirmed ?Type guaifenesin 1,200 mg tablet, 1,200 mg PO DAILY 11/22/24 02/10/25 Hist ory extended release 12 hr (Mucinex) furosemide 20 mg tablet (Lasix) 20 mg PO DAILY #30 tabs 11/26/24 5 Rx pantoprazole 40 mg tablet,delayed 40 mg PO DAILY #30 tabs 11/26/24 5 Rx release cholestyramine-aspartame 4 gram 4 g PO TID #239.4 grams 12/05/24 5 Rx oral powder (Cholestyramine Light) metoprolol succinate 25 mg 25 mg PO QDAY #90 tabs 02/06/25 02/10/25 Rx tablet,extended release 24 hr (Toprol XL) loperamide 2 mg capsule (Imodium 2 mg PO QDAY 02/09/25 02/10/25 History A-D) [facility] Medical History (Updated 02/10/25 @ 08:34 by Rufina Santos) Wears glasses Cancer Anemia Easy bruising Excessive bleeding Essential tremor History of GI bleed Gastric reflux Non-smoker Shortness of breath on exertion Colitis History of edema History of stress test History of echocardiogram Cardiology follow-up encounter Encounter for education Cardiac murmur Pelvic lymphadenopathy Mesenteric lymphadenopathy Retroperitoneal lymphadenopathy Mediastinal lymphadenopathy Iron deficiency anemia due to chronic blood loss Metastasis to liver of unknown origin Ulcerative colitis Ascites Cholangiocarcinoma Atrial fibrillation HUANG (dyspnea on exertion) Nonrheumatic aortic (valve) stenosis Bicuspid aortic valve Acute kidney injury Chest pain, unspecified Asthma Churg-Geronimo syndrome Surgical History (Updated 02/10/25 @ 08:34 by Rufina Santos) History of esophagogastroduodenoscopy (EGD) Hx of surgical procedure S/P proctocolectomy (~1993) Hx laparoscopic cholecystectomy History of right and left heart catheterization (LHC) (~07/12/01) History of aortic valve replacement with bioprosthetic valve Family History Other Heart disease Social History Smoking Status: Never smoker alcohol intake: current alcohol intake frequency: holidays/special occasions only details: occasional substance use type: does not use HPI HPI HPI: 55-year-old male presents for port placement for treatment for cholangiocarcinoma. Patient is planned to start February 18. Patient's past medicalhistory includes total proctocolectomy to [place] for ulcerative colitis in 94 with aJ-pouch at [facility], in November 2024 he was found to have melanotic stools with hemoglobin of 5.7. ROS General General: Yes weight change and fatigue; No appetite, colon cancer or breast cancer HEENT HEENT: No difficulty swallowing, eye injury, eye surgery, swollen glands or hoarseness Endo Endocrine: No thyroid disease, diabetes mellitus, thyroid cancer, Hair loss, heat intolerance or cold intolerance Skin Skin: Yes rash; No changing moles Musc Musculoskeletal: No back problems, arthritis, rheumatoid arthritis, gout or joint pain Cardio Cardiovascular: Yes murmur; No pacemaker, heart disease, atrial fibrillation, high blood pressure, heart attack, heart stent, palpitations, shortness of breath with exertion or chest pain Psych Psychiatric: No depression, anxiety or hearing voices Resp Respiratory: Yes shortness of breath, No sleep apnea, No cough, No COPD, No asthma, No emphysema and No wheezing Gastro Gastrointestinal: No abdominal pain, No nausea or vomiting, Yes diarrhea, No constipation, Yes blood in stool, No acid reflux, No hemorrhoids, No ulcers, No gallbladder problem and Yes black,tarry stools Marques Hematologic: No blood thinners, No blood disorders, No bleeding, No anemia and No blood clots Neuro Neurologic: Yes numbness and Yes tingling Exam Const General: cooperative, healthy appearing, comfortable and no acute distress HENMT Head: normocephalic and atraumatic Neck Neck: supple Chest Other: Previous open heart incision well-healed, otherwise palpation of upper chest bilaterally normal Resp Effort & Inspection: normal respiratory effort Cardio Rate: regular rate GI Inspection: non-distended Skin General: no rashes or lesions noted Neuro General: CN's II-XI intact bilaterally Extrem General: normal to inspection Psych Mental Status: mental status grossly normal Attitude: cooperative Assessment and Plan Assessment and Plan (1) Encounter for insertion of tunneled central venous catheter (CVC) with port: Status: Acute (2) Cholangiocarcinoma: Status: Acute Plan I have discussed above with the patient- Port-a-Cath placement. Right possible left IJ Patient has been counseled as to the risks/benefits of the procedure. I have explained the risks of the surgery, including but not limited to: infection, bleeding, injury to any blood vessels/nerves, injury to lungs (such as pneumothorax or hemothorax and need for chest tube), not having any access, nonfunctioning of port due to thrombosis, infection of port, etc. the patient understands and agrees to proceed. I have answered all the patient's questions to the patient?s satisfaction and the patient has no further questions. Maya Live M.D. Pager: [phone] [facility] [address] [place] [address], [address] [place] [address] Office: [phone] Coding Level of Care Code Off vis,new,level 3 Diagnoses Encounter for insertion of tunneled central venous catheter (CVC) with port Z45.2 Cholangiocarcinoma C22.1 02/10/25 1254 <Electronically signed by Maya Live MD> Date Maya Live MD 02/11/25 1305 <Electronically signed by Maya Live MD> Cosigner Signature (if applicable): CC: Dr. Maya Live MD; JACK Mccall~ Signed ADDENDUM by Dr. Maya Live MD on 02/11/25 at 1306 Addendum I have examined the patient and the H&P has been reviewed. There are no clinicalchanges since date of exam. 02/11/25 1306<Electronically signed by Maya Live MD> Cosigner Signature (if applicable): cc: Dr. Maya Live MD; JACK Mccall ~* Signed [facility] Work Phone: [phone] 370-819905-07-2025 Discharge summary [facility] Medical Records Department [address] [place] [address] Instructions for Home/Discharge Instructions 02/11/25 1444 MR#: [id number] Acct: [id number] Name: DENY BRONSON Rep #:[id number] : 1970 55 From: Maya Live MD PCP: JACK Mccall Status:REG SDC Discharge Instructions Procedure Port-A-Cath Diet Discharge Diet: Light diet - advance as tolerated Activity May shower in (days): 5 (Keep port site clean and dry x5 days. Neck incision okay to get wet after 1 day. Okay to lower shower and upper sponge bath. OR okay to taper off port site with a Ziploc bag to shower) Lifting Restrictions: No lifting > 15 pounds for 3 days with the arm on the sideof the port Dressing / Incision Call your doctor if your incision/area has: Continuous Slow Oozing, Sudden Increased Bleeding, Increased Pain/ Swelling, Increased Redness, Foul Smelling Discharge and Swelling at the incision site Call your doctor if you observe: Fever of 101 or Higher Change Dressing in: 2 days (2-3 days- port site; ok to remove neck opsite in 1 day) Follow Up Care Please Follow Up With: Maya Live MD When: In 10 days for permanent suture removal?call office for appointment Test Results: Test results from this visit will be discussed in further detail at your follow- up appointment, if applicable. Discharge Plan Admission Attending Provider: Maya Live Primary Care Provider: Johny Rodríguez Instructions Print Language: Kazakh Discharge Orders/Prescriptions Prescriptions: New tramadol 50 mg tablet 50 mg PO Q6H PRN (Reason: pain) 2 Days Qty: 5 0RF Continued Cholestyramine Light 4 gram powder 4 g PO TID Qty: 239.4 2RF Rx Instructions: administer w/meal; avoid other meds within 1hr before or 4-6hr after dose loperamide [Imodium A-D] 2 mg capsule 2 mg PO QDAY metoprolol succinate [Toprol XL] 25 mg tablet extended release 24 hr 25 mg PO QDAY Qty: 90 3RF guaifenesin [Mucinex] 1,200 mg tablet extended release 12hr 1,200 mg PO DAILY furosemide [Lasix] 20 mg tablet 20 mg PO DAILY Qty: 30 2RF pantoprazole 40 mg tablet,delayed release (DR/EC) 40 mg PO DAILY Qty: 30 2RF Referrals / Follow Up: Johny Rodríguez PA [Primary Care Provider] - Disposition Disposition (needs filled in before D/C Order can be placed): Home, Self Care 02/11/25 1446Maya Live MD CC: JACK Mccall ~ Signed [facility]05-07-2025 Procedure note [facility] Medical Records Department [address] [place] [address] Operative Report 02/11/25 1410 MR#: [id number] Acct: [id number] Name: DENY BRONSON Shai Rep #:[id number] : 1970 55 From: Maya Live MD PCP: JACK Mccall Status:[facility] Location: [place] [address] Operative Report (Standard) Operative Information Date of Procedure: 02/11/25 Pre-Operative Diagnosis: Z45.2, cholangiocarcinoma Post-Operative Diagnosis: Same Surgery/Procedure Performed: 1. Placement of right IJ Port-A-Cath, 2. Use of ultrasound, 3. use of fluoroscopy glove boarder: No Type of Anesthesia: Local MAC RN Documented Start/Stop Times: Operation Date: 02/11/25 12:30 Case Time Into Pre-Op 02/11/25 10:37 Out of Pre-Op 02/11/25 13:18 Anesthesia Start 02/11/25 13:23 Into Room 02/11/25 13:23 Procedure Start 02/11/25 13:39 Procedure End 02/11/25 14:08 Anesthesia End 02/11/25 14:11 Out of Room 02/11/25 14:11 Into Recovery 02/11/25 14:13 Out of Recovery 02/11/25 14:31 Into Phase II Recovery 02/11/25 14:32 Procedure Start Time: 13:39 Procedure Stop Time: 14:08 Select all DRAINS/GRAFTS/IMPLANTS that apply: Implanted device Implanted device details: PowerPort 6 Fr Bard ref [id number] Lot [id number] Special Medications: Clindamycin 900 g IV x 1 Estimated Blood Loss: < 10 cc Specimen collected: No Description of surgery: After informed consent was given, the patient was brought to the operating room and placed in the supine position. Appropriate time out protocol was followed. Patient was then given IV conscious sedation for anesthesia. The patient's right upper chest and neck were then prepped with a surgical skinpreparation and sterile surgical drapes were placed. After proper landmarks were ascertained, the skin at the upper right chest area was then infiltrated with 1:1 mixture of 1% lidocaine with epinephrine and 0.5% marcaine. A needle trocar was then inserted into the right internal jugular vein with ultrasound guidance-multiple vessels were viewed with u/s and the right IJ was chosen-- and there was good aspiration of venous blood. A wire was then threaded into the needle trocar and this was visualized under fluoroscopy to ensure that the wire was in the superior vena cava. Once this was done, then the needle trocar was removed. A small skin wade was made with an 11 blade knife at the wire entrance site. The dilator with the introducer sheath attached was then placed over the wire into the right internal jugular vein viathe Seldinger technique and this was visualized under fluoroscopy. The dilator and sheath were in proper position as visualized by fluoroscopy. A subcutaneous pocket was then created caudad to the catheter insertion site. Atransverse skin incision was made after the skin and subcutaneous tissues were infiltrated with local anesthetic. Blunt dissection was then used to create a space large enough for placement of the subcutaneous port. The catheter was thentunneled into the subcutaneous pocket. The wire and dilator were then removed. The catheter was then threaded into theintroducer sheath and was positioned with its tip at the junction of the superior vena cava and the right atrium as visualized under fluoroscopy. The excess catheter was transected. The catheter was then attached to the s ubcutaneous port using manufacturers guidelines. The catheter was flushed with a heparin saline mixture prior to placement. Hemostasis was carefully controlled with electrocautery. The port was sutured to the subcutaneous fasciausing 2-0 Vicryl suture at two sites. The port was then placed in the subcutaneous pocket. The incision were reapproximated with interrupted subdermal 3-0 vicryl sutures. The skin was reapproximated with 3-0 nylon suture in a interrupted fashion. Steristrips were used for reinforcement of the skin closure at IJ insertion siteand a sterile opsite dressings were applied. The patient tolerated the procedurewell. Surgical Findings: See operative report Complications Complications: No 02/11/25 1446 Cosigner Signature (if applicable): CC: Dr. Maya Live MD; JACK Mccall~ Signed [facility]05-07-2025 Radiology Diagnostic study note [facility] Imaging Services [address] [place], [place] [id number] CXR for Line Placement MR#: [id number] Acct: [id number] Name: DENY BRONSON Rep #: [id number] : 1970 M 55 From: Buzz Menard MD PCP: JACK Mccall Status: REG [facility] Study:CXR for Line Placement Date of Exam: 02/11/25 Exam# [id number] Ordering Dr: Maya Live MD EXAM: AP portable upright chest CLINICAL HISTORY: Port placement. COMPARISON: Chest x-ray of 04/16/2020. TECHNIQUE: AP portable upright chest, following port placement. RAD/CXR for Line Placement IMPRESSION: The cardiomediastinal silhouette is stable, with mild cardiomegaly likely present. Interval placement of a right subclavian central venous catheter with port, withtip projecting overthe SVC. No pneumothorax is seen. No significant pleural effusion is evident. Lungs are hypoinflated, and there is probably a mild degree of interstitial pulmonary edema noted, however. Reading Location: [place] [address] CC: Dr. Maya Live MD; JACK Mccall ~ Oncology Registrar: Signed [facility]05-07-2025 Consult note [facility] Medical Records Department [address] [place] [address] Anesthesia Postop Eval I 02/11/25 1415 MR#: [id number] Acct: [id number] Name: DENY BRONSON Rep #:[id number] : 1970 55 From: Himanshu Nguyen CRNA PCP: JACK Mccall Status:REG SDC Y Race: C Location: [place] [address] Anesthesia: Postop Eval I Current Vital Signs Temperature: 98.3 F Pulse Rate: 93 Blood Pressure: 99/46 Respiratory Rate: 20 Pulse Ox: 98 Oxygen Delivery Method: Room Air Assessment Airway patent: Yes Spontaneous unlabored respirations: Yes Mental status: Awake and Calm nausea: No Vomiting: No Anesthesia Complication: No Fluid Hydration Crystalloid volume administer (ml): 700 Total IV fluid infused: 700 Progress Note Anesthesia document: Postop Eval 1 completed: Yes 02/11/25 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 Medical Records Department [address] [place] [address] Pre-Anesthesia Evaluation 02/11/25 1130 MR#: [id number] Acct: [id number] Name: DENY BRONSON Rep #:[id number] : 1970 55 From: Dwayne Castillo MD PCP: JACK Mccall Status:REG SDC Y Race: C Location: [place] [address] ASA Classification* ASA Classification ASA Classification: 4 (Newly diagnosed atrial fibrillation. Please refer to cardiac notes. H/o of TAVR, may need revision. Metastatic liver cancer. I think versed and fentanyl may be sufficient with low-dose propofol ) Assessment & Plan Anesthesia* Anesthesia Assessment Anesthesia Assessment: Discussed sedation and/or anesthesia options, risks, benefits, and alternatives with patient/parents/legal guardian/POA. Questions invited. The patient/parents/legal guardian/POA seems to understand and agrees to proceedwith anesthesia plan. Reviewed the physical assessment, medical history, allergy history and patient home medications list prior to surgery/procedure/anesthetic and documented any changes. Performed airway and anesthesia risk assessments. Pleasant 55-year-old man with a history of bicuspid aortic valve who underwent abovine pericardial heart valve replacement with a 27 mm size in September 2001. As you know he does have a history of Crohn's disease severe anemia and more recently diagnosed atrial fibrillation as well as metastatic cancer in the liverwith unknown primary. He had previously undergone a total proctocolectomy in 1993 with a J- pouch at the [facility] and his pathology has previously demonstrated active colitis as well as recurrent bleeding with black melanotic stools. 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 He denies anychest pain or shortness of breath or paroxysmal nocturnal dyspnea or pedal edemahe does have some shortness of breath with exertion though. He has been on his medication which is tolerated. More recently he was diagnosed with atrial fibrillation in November and his EKG today demonstrates atrial fibrillation with a rate of 93 bpm a right bundle branch block and a left anterior fascicular block. Anesthesia Type Anesthesia Type: MAC History Source History Obtained from:: Patient and Chart Anesthesia Focused Assessment* Temperature: 97.3 F Pulse Rate: 80 Blood Pressure: 96/65 Respiratory Rate: 16 Pulse Ox: 100 Oxygen Delivery Method: Room Air Airway Assessment Mouth opens: >3 cm Mallampati Score: II Teeth Condition: Intact Focused Labs Anesthesia Preop lab: CBC WBC 9.2 K/mm3 (4.4-11.0) 02/03/25 10:02/03/25 RBC 3.86 M/mm3 (4.6-6.2) L 02/03/25 10:22 02/03/25 Hgb 8.3 g/dL (13.0-16.5) L 02/03/25 10:22 02/03/25 Hct 29.0 % (40-54) L 02/03/25 10:22 02/03/25 Plt Count 351 K/mm3 (150-450) 02/03/25 10:22 02/03/25 CHEMISTRY Potassium 4.2 mmol/L (3.3-5.1) 02/03/25 10:02/03/25 Sodium 134 mmol/L (133-145) 02/03/25 10:02/03/25 Magnesium 1.4 mg/dL (1.5-2.2) L 02/03/25 10:22 02/03/25 Phosphorus 3.2 mg/dL (2.7-4.5) 02/03/25 10:02/03/25 BUN 25 mg/dL (4-19) H 02/03/25 10:02/03/25 Creatinine 0.82 mg/dL (0.70-1.20) 02/03/25 10:02/03/25 Glucose 93 mg/dL (70-99) 02/03/25 10:02/03/25 POC Glucose 88 mg/dL (70-110) 09/27/18 13:25 09/27/18 TSH 7.280 uIU/mL (0.358-3.740) H 11/23/24 06:11 COAG PT 15.4 SECONDS (11.7-14.9) H 11/24/24 17:49 11/08 05/01 Pre-Assessment Diagnosis/Proposed Procedure Planned Operative Procedure(s): PORT PLACEMENT Anesthesia History 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 When Was Last Pacemaker Check QUESTION #4 FULL TEXT: You/Your Family Experience fever (hyperthermia) with Anesthesia Last Oral Intake Last Oral intake: Last Oral Intake NPO since 22:00 02/11/25 10:58 Meds taken in AM with sips of Yes 02/11/25 10:58 water? 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 Female No 02/10/25 08:35 HX of Motion Sickness No 02/10/25 08:35 HX of N/V After Surgery Yes 02/10/25 08:35 Non-Smoker Yes 02/10/25 08:35 Duration of Surgery greater No 02/10/25 08:35 than 60 minutes Number of Risk Factors 2 02/10/25 08:35 PONV Score Moderate Risk 02/10/25 08:35 Height & Weight Height & Weight: Anesthesia: Height & Weight Height 6 ft 3 in 02/11/25 10:58 Weight: 93.8 kg 02/11/25 10:58 Body Mass Index (BMI) 25.8 02/11/25 10:58 Respiratory Assessment Respiratory Assessment - [employer]: Respiratory Tract Infection Hx - 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 Has anyone observed you stop No 02/10/25 08:35 breathing during sleep? STOP Results Negative 02/10/25 08:35 QUESTION #5 FULL TEXT : Do you snore loudly (louder than talking or can be heard through closed doors)? 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 Specify any problems Hx of Preganancy in last 3 N/A 02/10/25 08:35 Months Nurse Filling Out Transfusion VCHRISTIN 02/10/25 08:35 & Questions: Date: 02/10/25 02/10/25 08:35 Time: 08:36 02/10/25 08:35 Patient unable to answer at this time (ie. confused, unrespo /Reproduction History /Reproductive History - supervisor [employer]: /Reproductive Hx- supervisor [employer] Hx Now Gestational Age (in weeks): EDC: Hx Hx Para Hx Section SAB Active Medications Active Medications: Current Medications Generic Name Dose Route Start Last Admin Trade Name Freq PRN Reason Stop Dose Admin Clindamycin Phosphate 900 mg in 50 mls @ 75 mls/hr 02/11/25 12:30 Cleocin IV 02/11/25 13:09 INTRAOP ONE Lactated Ringer's 1,000 mls @ 15 mls/hr 02/11/25 10:45 02/11/25 11:12 IV 15 mls/hr .Q48H CHAPO Administration PFSH Medical History (Updated 02/10/25 @ 08:34 by Rufina Santos) Wears glasses Cancer Anemia Easy bruising Excessive bleeding Essential tremor History of GI bleed Gastric reflux Non-smoker Shortness of breath on exertion Colitis History of edema History of stress test History of echocardiogram Cardiology follow-up encounter Encounter for education Cardiac murmur Pelvic lymphadenopathy Mesenteric lymphadenopathy Retroperitoneal lymphadenopathy Mediastinal lymphadenopathy Iron deficiency anemia due to chronic blood loss Metastasis to liver of unknown origin Ulcerative colitis Ascites Cholangiocarcinoma Atrial fibrillation HUANG (dyspnea on exertion) Nonrheumatic aortic (valve) stenosis Bicuspid aortic valve Acute kidney injury Chest pain, unspecified Asthma Churg-Geronimo syndrome Home Medications ?Medication ?Instructions ?Recorded ?Last Taken ?Type guaifenesin 1,200 mg tablet, 1,200 mg PO DAILY 5 11/22/24 History extended release 12 hr (Mucinex) furosemide 20 mg tablet (Lasix) 20 mg PO DAILY #30 tab s 11/26/24 Unknown Rx pantoprazole 40 mg tablet,delayed 40 mg PO DAILY #30 t abs 11/26/24 02/11/25 06:00 Rx release cholestyramine-aspartame 4 gram 4 g PO TID #239.4 gram s 12/05/24 Unknown Rx oral powder (Cholestyramine Light) metoprolol succinate 25 mg 25 mg PO QDAY #90 tabs 12/0202/11/25 06:00 Rx tablet,extended release 24 hr (Toprol XL) loperamide 2 mg capsule (Imodium 2 mg PO QDAY 02/09/25 Unknown History A-D) Allergy/AdvReac Type Severity Reaction Status Date / Time acetaminophen Allergy Mild Itching Verified 02/11/25 10:56 Penicillins (PCN) Allergy PT UNSURE Verified 02/11/25 10:56 OF REACTION Family History Other Heart disease Surgical History (Updated 02/10/25 @ 08:34 by Rufina Santos) History of esophagogastroduodenoscopy (EGD) Hx of surgical procedure S/P proctocolectomy (~1993) Hx laparoscopic cholecystectomy History of right and left heart catheterization (LHC) (~07/12/01) History of aortic valve replacement with bioprosthetic valve Social History Smoking Status: Never smoker alcohol intake: current alcohol intake frequency: holidays/special occasions only details: occasional substance use type: does not use Review of Systems (Anesthesia) ROS Narrative System reviewed and no additional complaints, except as documented. Physical Exam Const alert, oriented x3 and average body habitus Resp normal respiratory effort, normal air movement and clear to auscultation bilaterally Cardio no murmurs and diaphoretic Rhythm: abnormal rhythm irregularly irregular 02/11/25 1137 <Electronically signed by Dwayne Castillo MD> Date _ Dwayne Castillo MD Cosigner Signature: Date CC: ~ Signed [facility] Work Phone: [phone]) 345-775905-07-2025 History and physical note [facility] Medical Records Department [address] [place] [address] History & Physical Exam 02/11/25 1304 MR#: [id number] Acct: [id number] Name: DENY BRONSON Rep #:[id number] : 1970 55 From: Maya Live MD PCP: JACK Mccall Status:[facility] Location: [place] [address] History and Physical Date of Admission: 02/11/25 Date of Service: 02/09/25 MR#: [id number] Acct: [id number] Name: DENY BRONSON Rep #: [id number] : 1970 Provider: Dr. Maya Live MD Age/Sex: 55/M Location: [facility] Status: Signed Intake Vital Signs 02/03/2509:22 02/09/2511:57 02/09/2514:29 Height 6 ft 3 in 6 ft 3 in 6 ft 3 in Weight: 209 lb 6 oz BMI 26.2 BP 96/48 L Blood Pressure Location Rt brachial Position Sitting Respiration 17 Pulse 77 Pulse Source Monitor Pulse Oximetry (%) 98 Oxygen Delivery Method room air Intake Visit Reasons: PORT PLACEMENT Chief Complaint: port placement Is patient in pain?: Yes Allergies acetaminophen Allergy (Mild, Verified 02/10/25 08:20) ItchingPenicillins (PCN) Allergy (Verified 02/10/25 08:20) PT UNSURE OF REACTION Medications ?Medication ?Instructions ?Recorded ?Confirmed ?Type guaifenesin 1,200 mg tablet, 1,200 mg PO DAILY 11/22/24 02/10/25 Hist ory extended release 12 hr (Mucinex) furosemide 20 mg tablet (Lasix) 20 mg PO DAILY #30 tabs 11/26/24 5 Rx pantoprazole 40 mg tablet,delayed 40 mg PO DAILY #30 tabs 11/26/24 5 Rx release cholestyramine-aspartame 4 gram 4 g PO TID #239.4 grams 12/05/24 5 Rx oral powder (Cholestyramine Light) metoprolol succinate 25 mg 25 mg PO QDAY #90 tabs 02/06/25 02/10/25 Rx tablet,extended release 24 hr (Toprol XL) loperamide 2 mg capsule (Imodium 2 mg PO QDAY 02/09/25 02/10/25 History A-D) [facility] Medical History (Updated 02/10/25 @ 08:34 by Rufina Santos) Wears glasses Cancer Anemia Easy bruising Excessive bleeding Essential tremor History of GI bleed Gastric reflux Non-smoker Shortness of breath on exertion Colitis History of edema History of stress test History of echocardiogram Cardiology follow-up encounter Encounter for education Cardiac murmur Pelvic lymphadenopathy Mesenteric lymphadenopathy Retroperitoneal lymphadenopathy Mediastinal lymphadenopathy Iron deficiency anemia due to chronic blood loss Metastasis to liver of unknown origin Ulcerative colitis Ascites Cholangiocarcinoma Atrial fibrillation HUANG (dyspnea on exertion) Nonrheumatic aortic (valve) stenosis Bicuspid aortic valve Acute kidney injury Chest pain, unspecified Asthma Churg-Geronimo syndrome Surgical History (Updated 02/10/25 @ 08:34 by Rufina Santos) History of esophagogastroduodenoscopy (EGD) Hx of surgical procedure S/P proctocolectomy (~1993) Hx laparoscopic cholecystectomy History of right and left heart catheterization (LHC) (~07/12/01) History of aortic valve replacement with bioprosthetic valve Family History Other Heart disease Social History Smoking Status: Never smoker alcohol intake: current alcohol intake frequency: holidays/special occasions only details: occasional substance use type: does not use HPI HPI HPI: 55-year-old male presents for port placement for treatment for cholangiocarcinoma. Patient is planned to start February 18. Patient's past medicalhistory includes total proctocolectomy to [place] for ulcerative colitis in 94 with aJ-pouch at [facility], in November 2024 he was found to have melanotic stools with hemoglobin of 5.7. ROS General General: Yes weight change and fatigue; No appetite, colon cancer or breast cancer HEENT HEENT: No difficulty swallowing, eye injury, eye surgery, swollen glands or hoarseness Endo Endocrine: No thyroid disease, diabetes mellitus, thyroid cancer, Hair loss, heat intolerance or cold intolerance Skin Skin: Yes rash; No changing moles Musc Musculoskeletal: No back problems, arthritis, rheumatoid arthritis, gout or joint pain Cardio Cardiovascular: Yes murmur; No pacemaker, heart disease, atrial fibrillation, high blood pressure, heart attack, heart stent, palpitations, shortness of breath with exertion or chest pain Psych Psychiatric: No depression, anxiety or hearing voices Resp Respiratory: Yes shortness of breath, No sleep apnea, No cough, No COPD, No asthma, No emphysema and No wheezing Gastro Gastrointestinal: No abdominal pain, No nausea or vomiting, Yes diarrhea, No constipation, Yes blood in stool, No acid reflux, No hemorrhoids, No ulcers, No gallbladder problem and Yes black,tarry stools [place] Hematologic: No blood thinners, No blood disorders, No bleeding, No anemia and No blood clots Neuro Neurologic: Yes numbness and Yes tingling Exam Const General: cooperative, healthy appearing, comfortable and no acute distress [facility] Head: normocephalic and atraumatic Neck Neck: supple Chest Other: Previous open heart incision well-healed, otherwise palpation of upper chest bilaterally normal Resp Effort & Inspection: normal respiratory effort Cardio Rate: regular rate GI Inspection: non-distended Skin General: no rashes or lesions noted Neuro General: CN's II-XI intact bilaterally Extrem General: normal to inspection Psych Mental Status: mental status grossly normal Attitude: cooperative Assessment and Plan Assessment and Plan (1) Encounter for insertion of tunneled central venous catheter (CVC) with port: Status: Acute (2) Cholangiocarcinoma: Status: Acute Plan I have discussed above with the patient- Port-a-Cath placement. Right possible left IJ Patient has been counseled as to the risks/benefits of the procedure. I have explained the risks ofthe surgery, including but not limited to: infection, bleeding, injury to any blood vessels/nerves,injury to lungs (such as pneumothorax or hemothorax and need for chest tube), not having any access, nonfunctioning of port due to thrombosis, infection of port, etc. the patient understands and agrees to proceed. I have answered all the patient's questions to the patient?s satisfaction and the patient has no further questions. Maya Live M.D. Pager: [phone] [facility] [address] [place] [address], Outpatient [facility]ilion, [address] [place] [address] Office: [phone] Coding Level of Care Code Off vis,new,level 3 Diagnoses Encounter for insertion of tunneled central venous catheter (CVC) with port Z45.2 Cholangiocarcinoma C22.1 02/10/25 1254 Date Maya Live MD 02/11/25 1305 Cosigner Signature (if applicable): CC: Dr. Maya Live MD; JACK Mccall~ Signed ADDENDUM by Dr. Maya Live MD on 02/11/25 at 1306 Addendum I have examined the patient and the H&P has been reviewed. There are no clinicalchanges since date of exam. 02/11/25 1306 Cosigner Signature (if applicable): cc: Dr. Maya Live MD; JACK Mccall ~* Signed [facility]05-07-2025 [facility] Medical Records Department [address] [place] [id number] History Physical Exam 02/11/25 1304 MR#: [id number] Acct: [id number] Name: DENY BRONSON Rep #: [id number] : 1970 55 From: Maya Live MD PCP: JACK Mccall Status:[facility] Location: [place] [address] History and Physical Date of Admission: 02/11/25 Date of Service: 02/09/25 MR#: [id number] Acct: [id number] Name: DENY BRONSON Rep #: [id number] : 1970 Provider: Dr. Maya Live MD Age/Sex: 55/M Location: [facility] Status: Signed Intake Vital Signs 02/03/2509:22 02/09/2511:57 02/09/2514:29 Height 6 ft 3 in 6 ft 3 in 6 ft 3 in Weight: 209 lb 6 oz BMI 26.2 BP 96/48 L Blood Pressure Location Rt brachial Position Sitting Respiration 17 Pulse 77 Pulse Source Monitor Pulse Oximetry (%) 98 Oxygen Delivery Method room air Intake Visit Reasons: PORT PLACEMENT Chief Complaint: port placement Is patient in pain?: Yes Allergies acetaminophen Allergy (Mild, Verified 02/10/25 08:20) ItchingPenicillins (PCN) Allergy (Verified 02/10/25 08:20) PT UNSURE OF REACTION Medications ???Medication ???Instructions ???Recorded ???Confirmed ???Type guaifenesin 1,200 mg tablet, 1,200 mg PO DAILY 11/22/24 02/10/25 History extended release 12 hr (Mucinex) furosemide 20 mg tablet (Lasix) 20 mg PO DAILY #30 tabs 11/26/24 02/10/25 Rx pantoprazole 40 mg tablet,delayed 40 mg PO DAILY #30 tabs 11/26/24 02/10/25 Rx release cholestyramine-aspartame 4 gram 4 g PO TID #239.4 grams 12/05/24 02/10/25 Rx oral powder (Cholestyramine Light) metoprolol succinate 25 mg 25 mg PO QDAY #90 tabs 02/06/25 02/10/25 Rx tablet,extended release 24 hr (Toprol XL) loperamide 2 mg capsule (Imodium 2 mg PO QDAY 02/09/25 02/10/25 History A-D) [facility] Medical History (Updated 02/10/25 @ 08:34 by Rufina Santos) Wears glasses Cancer Anemia Easy bruising Excessive bleeding Essential tremor History of GI bleed Gastric reflux Non-smoker Shortness of breath on exertion Colitis History of edema History of stress test History of echocardiogram Cardiology follow-up encounter Encounter for education Cardiac murmur Pelvic lymphadenopathy Mesenteric lymphadenopathy Retroperitoneal lymphadenopathy Mediastinal lymphadenopathy Iron deficiency anemia due to chronic blood loss Metastasis to liver of unknown origin Ulcerative colitis Ascites Cholangiocarcinoma Atrial fibrillation HUANG (dyspnea on exertion) Nonrheumatic aortic (valve) stenosis Bicuspid aortic valve Acute kidney injury Chest pain, unspecified Asthma Churg-Geronimo syndrome Surgical History (Updated 02/10/25 @ 08:34 by Rufina Santos) History of esophagogastroduodenoscopy (EGD) Hx of surgical procedure S/P proctocolectomy ( 1993) Hx laparoscopic cholecystectomy History of right and left heart catheterization (LHC) ( 07/12/01) History of aortic valve replacement with bioprosthetic valve Family History Other Heart disease Social History Smoking Status: Never smoker alcohol intake: current alcohol intake frequency: holidays/special occasions only details: occasional substance use type: does not use HPI HPI HPI: 55-year-old male presents for port placement for treatment for cholangiocarcinoma. Patient is planned to start February 18. Patient's past medical history includes total proctocolectomy to [place] for ulcerative colitis in with a J-pouch at [facility], in November 2024 he was found to have melanotic stools with hemoglobin of 5.7. ROS General General: Yes weight change and fatigue; No appetite, colon cancer or breast cancer HEENT HEENT: No difficulty swallowing, eye injury, eye surgery, swollen glands or hoarseness Endo Endocrine: No thyroid disease, diabetes mellitus, thyroid cancer, Hair loss, heat intolerance or cold intolerance Skin Skin: Yes rash; No changing moles Musc Musculoskeletal: No back problems, arthritis, rheumatoid arthritis, gout or joint pain Cardio Cardiovascular: Yes murmur; No pacemaker, heart disease, atrial fibrillation, high blood pressure, heart attack, heart stent, palpitations, shortness of breath with exertion or chest pain Psych Psychiatric: No depression, anxiety or hearing voices Resp Respiratory: Yes shortness of breath, No sleep apnea, No cough, No COPD, No asthma, No emphysema and No wheezing Gastro Gastrointestinal: No abdominal pain, No nausea or vomiting, Yes diarrhea, No constipation, Yes blood in stool, No acid (more content not included)...[facility] 02-11-2025 Consult note [facility] Medical Records Department [address] [place] [address] Pre-Anesthesia Evaluation 02/11/25 1130 MR#: [id number] Acct: [id number] Name: DENY BRONSON Rep #:[id number] : 1970 55 From: Dwayne Castillo MD PCP: JACK Mccall Status:REG SDC Y Race: C Location: [place] [address]- ASA Classification* ASA Classification ASA Classification: 4 (Newly diagnosed atrial fibrillation. Please refer to cardiac notes. H/o of TAVR, may need revision. Metastatic liver cancer. I think versed and fentanyl may be sufficient with low-dose propofol ) Assessment & Plan Anesthesia* Anesthesia Assessment Anesthesia Assessment: Discussed sedation and/or anesthesia options, risks, benefits, and alternatives with patient/parents/legal guardian/POA. Questions invited. The patient/parents/legal guardian/POA seems to understand and agrees to proceedwith anesthesia plan. Reviewed the physical assessment, medical history, allergy history and patient home medications list prior to surgery/procedure/anesthetic and documented any changes. Performed airway and anesthesia risk assessments. Pleasant 55-year-old man with a history of bicuspid aortic valve who underwent abovine pericardial heart valve replacement with a 27 mm size in September 2001. As you know he does have a history of Crohn's disease severe anemia and more recently diagnosed atrial fibrillation as well as metastatic cancer in the liverwith unknown primary. He had previously undergone a total proctocolectomy in 1993 with a J-pouch at the [facility] and his pathology has previously demonstrated active colitis as well as recurrent bleeding with black melanotic stools. 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 He denies anychest pain or shortness of breath or paroxysmal nocturnal dyspnea or pedal edemahe does have some shortness of breath with exertion though. He has been on his medication which is tolerated. More recently he was diagnosed with atrial fibrillation in November and his EKG today demonstrates atrial fibrillation with a rate of 93 bpm a right bundle branch block and a left anterior fascicular block. Anesthesia Type Anesthesia Type: MAC History Source History Obtained from:: Patient and Chart Anesthesia Focused Assessment* Temperature: 97.3 F Pulse Rate: 80 Blood Pressure: 96/65 Respiratory Rate: 16 Pulse Ox: 100 Oxygen Delivery Method: Room Air Airway Assessment Mouth opens: >3 cm Mallampati Score: II Teeth Condition: Intact Focused Labs Anesthesia Preop lab: CBC WBC 9.2 K/mm3 (4.4-11.0) 02/03/25 10:22 02/03/25 RBC 3.86 M/mm3 (4.6-6.2) L 02/03/25 10:22 02/03/25 Hgb 8.3 g/dL (13.0-16.5) L 02/03/25 10:22 02/03/25 Hct 29.0 % (40-54) L 02/03/25 10:22 02/03/25 Plt Count 351 K/mm3 (150-450) 02/03/25 10:22 02/03/25 CHEMISTRY Potassium 4.2 mmol/L (3.3-5.1) 02/03/25 10:02/03/25 Sodium 134 mmol/L (133-145) 02/03/25 10:02/03/25 Magnesium 1.4 mg/dL (1.5-2.2) L 02/03/25 10:02/03/25 Phosphorus 3.2 mg/dL (2.7-4.5) 02/03/25 10:02/03/25 BUN 25 mg/dL (4-19) H 02/03/25 10:02/03/25 Creatinine 0.82 mg/dL (0.70-1.20) 02/03/25 10:02/03/25 Glucose 93 mg/dL (70-99) 02/03/25 10:02/03/25 POC Glucose 88 mg/dL (70-110) 09/27/18 13:25 09/27/18 TSH 7.280 uIU/mL (0.358-3.740) H 11/23/24 06:11 COAG PT 15.4 SECONDS (11.7-14.9) H 11/24/24 17:49 11/08 05/01 Pre-Assessment Diagnosis/Proposed Procedure Planned Operative Procedure(s): PORT PLACEMENT Anesthesia History 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 When Was Last Pacemaker Check QUESTION #4 FULL TEXT: You/Your Family Experience fever (hyperthermia) with Anesthesia Last Oral Intake Last Oral intake: Last Oral Intake NPO since 22:00 02/11/25 10:58 Meds taken in AM with sips of Yes 02/11/25 10:58 water? 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 Female No 02/10/25 08:35 HX of Motion Sickness No 02/10/25 08:35 HX of N/V After Surgery Yes 02/10/25 08:35 Non-Smoker Yes 02/10/25 08:35 Duration of Surgery greater No 02/10/25 08:35 than 60 minutes Number of Risk Factors 2 02/10/25 08:35 PONV Score Moderate Risk 02/10/25 08:35 Height & Weight Height & Weight: Anesthesia: Height & Weight Height 6 ft 3 in 02/11/25 10:58 Weight: 93.8 kg 02/11/25 10:58 Body Mass Index (BMI) 25.8 02/11/25 10:58 Respiratory Assessment Respiratory Assessment - supervisor meter repair [employer]: Respiratory Tract Infection Hx - 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 Has anyone observed you stop No 02/10/25 08:35 breathing during sleep? STOP Results Negative 02/10/25 08:35 QUESTION #5 FULL TEXT : Do you snore loudly (louder than talking or can be heard through closeddoors)? 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 Specify any problems Hx of Preganancy in last 3 N/A 02/10/25 08:35 Months Nurse Filling Out Transfusion VCHRISTIN 02/10/25 08:35 & Questions: Date: 02/10/25 02/10/25 08:35 Time: 08:36 02/10/25 08:35 Patient unable to answer at this time (ie. confused, unrespo /Reproduction History /Reproductive History - supervisor meter repair [employer]: /Reproductive Hx- supervisor meter [employer] Hx Now Gestational Age (in weeks): EDC: Hx Hx Para Hx Section SAB Active Medications Active Medications: Current Medications Generic Name Dose Route Start Last Admin Trade Name Freq PRN Reason Stop Dose Admin Clindamycin Phosphate 900 mg in 50 mls @ 75 mls/hr 02/11/25 12:30 Cleocin IV 02/11/25 13:09 INTRAOP ONE Lactated Ringer's 1,000 mls @ 15 mls/hr 02/11/25 10:45 02/11/25 11:12 IV 15 mls/hr .Q48H CHAPO Administration PFSH Medical History (Updated 02/10/25 @ 08:34 by Rufina Santos) Wears glasses Cancer Anemia Easy bruising Excessive bleeding Essential tremor History of GI bleed Gastric reflux Non-smoker Shortness of breath on exertion Colitis History of edema History of stress test History of echocardiogram Cardiology follow-up encounter Encounter for education Cardiac murmur Pelvic lymphadenopathy Mesenteric lymphadenopathy Retroperitoneal lymphadenopathy Mediastinal lymphadenopathy Iron deficiency anemia due to chronic blood loss Metastasis to liver of unknown origin Ulcerative colitis Ascites Cholangiocarcinoma Atrial fibrillation HUANG (dyspnea on exertion) Nonrheumatic aortic (valve) stenosis Bicuspid aortic valve Acute kidney injury Chest pain, unspecified Asthma Churg-Geronimo syndrome Home Medications ?Medication ?Instructions ?Recorded ?Last Taken ?Type guaifenesin 1,200 mg tablet, 1,200 mg PO DAILY 5 11/22/24 History extended release 12 hr (Mucinex) furosemide 20 mg tablet (Lasix) 20 mg PO DAILY #30 tab s 11/26/24 Unknown Rx pantoprazole 40 mg tablet,delayed 40 mg PO DAILY #30 t abs 11/26/24 02/11/25 06:00 Rx release cholestyramine-aspartame 4 gram 4 g PO TID #239.4 gram s 12/05/24 Unknown Rx oral powder (Cholestyramine Light) metoprolol succinate 25 mg 25 mg PO QDAY #90 tabs 12/0202/11/25 06:00 Rx tablet,extended release 24 hr (Toprol XL) loperamide 2 mg capsule (Imodium 2 mg PO QDAY 02/09/25 Unknown History A-D) Allergy/AdvReac Type Severity Reaction Status Date / Time acetaminophen Allergy Mild Itching Verified 02/11/25 10:56 Penicillins (PCN) Allergy PT UNSURE Verified 02/11/25 10:56 OF REACTION Family History Other Heart disease Surgical History (Updated 02/10/25 @ 08:34 by Rufina Santos) History of esophagogastroduodenoscopy (EGD) Hx of surgical procedure S/P proctocolectomy (~1993) Hx laparoscopic cholecystectomy History of right and left heart catheterization (LHC) (~07/12/01) History of aortic valve replacement with bioprosthetic valve Social History Smoking Status: Never smoker alcohol intake: current alcohol intake frequency: holidays/special occasions only details: occasional substance use type: does not use Review of Systems (Anesthesia) ROS Narrative System reviewed and no additional complaints, except as documented. Physical Exam Const alert, oriented x3 and average body habitus Resp normal respiratory effort, normal air movement and clear to auscultation bilaterally Cardio no murmurs and diaphoretic Rhythm: abnormal rhythm irregularly irregular 02/11/25 1137 MD> Date _ Dwayne Castillo MD [facility] Signature: Date CC: ~ Signed [facility]04-15-2025 Nurse Note* Nursing Notes - Gisselle Pozo RN - 01/20/2025 4:54 PM EDT Patient arrived to [facility] from [facility] via gurney. Vital signs taken and stable. Patient given drink and snacks. Family called to bedside. Patient assessed. Discharge instructions, anesthesia precautions and prescriptions explained to patient and family/friend. All questions answered by Theodora SPRING Patient meets ASU discharge criteria and discharged per MD order to home. Patient taken by wheelchair by Ana MEDICAL SECRETARY to awaiting car. All belongings gathered with patient. Family/friend to drive patienthome and care for patient 24 hours post-op. [facility]04-15-2025 Miscellaneous Notes* Nursing Notes - Gisselle Pozo RN - 01/20/2025 4:54 PM EDT [facility] Vital signs taken and stable. Patient given drink and snacks. Family called to bedside. Patient assessed. Discharge instructions, anesthesia precautions and prescriptions explained to patient and family/friend. All questions answered by Theodora SPRING Patient meets ASU discharge criteria and discharged per MD order to home. Patient taken by wheelchair by Ana MEDICAL SECRETARY to awaiting car. All belongings gathered with patient. Family/friend to drive patienthome and care for patient 24 hours post-op. * Op Note - Ed Griggs MD - 01/20/2025 4:16 PM EDT Images from the original note were not included. Operative Report PATIENT: Deny Bronson : 1970 SEX: male PROCEDURE DATE: 01/20/25 Diagnosis PREOPERATIVE DIAGNOSIS: Other ulcerative colitis with complication [K51.819] POSTOPERATIVE DIAGNOSIS: Other ulcerative colitis with complication [K51.819] PROCEDURE: 1). EGD with biopsies Surgical Staff SURGEON: Surgeons and Role: Panel 1: * Lazaro Perry MD - Primary Panel 2: * Ed Griggs MD - Primary SURGICAL STAFF: Environmental [employer] Faculty Member: Yumiko Leal RN; Theodora Anaya RN Scrub Person: Giuliano Camacho ANESTHESIA: MAC Findings OPERATIVE INDICATIONS: Deny Bronson is a 54 y.o. male with a PMH of UC, melena and recent diagnosis of liver cancer who presents for EGD and colonoscopy. INTRAOPERATIVE FINDINGS: -No significant EGD findings -Antral inflammation noted. Biopsies taken Duration: 0 Hr 4 Min 6 Sec DESCRIPTION OF PROCEDURE: The patient was brought into the operating room and placed in the right lateral decubitus position.MAC anesthesia was administered The patient tolerated anesthesia well. No preoperative antibiotics were administered. A surgical timeout was performed ensuring the correct patient, procedure, site, and instruments are in the appropriate position. The EGD scope was inserted into the mouth and the esophagus was entered. There were no significant esophageal findings. The Z line was noted to be at 44 cm. The stomach was then entered and appeared to have a minimal amount of antral inflammation. The pylorus was then entered and the first and second portion of the duodenum was identified and noted to be normal. The scope was then retracted back into the stomach where a retroflex view of the hiatus was visualized and noted to be normal. We thenproceeded back to the antrum and biopsies were taken, labeled antral biopsies. The stomach was thensuctioned and withdrawn from the patient. The procedure was then turned over to the Colorectal team. Please see Dr. Perry's note for further details of their procedure. ESTIMATED BLOOD LOSS: Minimal COMPLICATIONS: None SPECIMENS: ID Type Source Tests Collected by Time Destination 1 : Antral biopsy Permanent SURG PATH SURG PATH REQUEST Lazaro Perry MD 01/20/2025 1610 DISPOSITION: Stable to PACU. Ed Griggs MD General and GI Surgery Fellow * Brief Op Note - Ed Griggs MD - 01/20/2025 4:16 PM EDT Deny Bronson ([id number]) PRE OPERATIVE DIAGNOSIS Other ulcerative colitis with complication [K51.819] POST OPERATIVE DIAGNOSIS Other ulcerative colitis with complication [K51.819] PROCEDURE PERFORMED 1). EGD with biopsies PRIMARY CLOSURE N/A INTRAOPERATIVE FINDINGS -No significant EGD findings -Antral inflammation noted. Biopsies taken SURGEON Surgeons and Role: Panel 1: * Lazaro Perry MD - Primary Panel 2: * Ed Griggs MD - Primary ANESTHESIOLOGIST Anesthesiologist: Jaya Torres MD VOTING MACHINE REPAIRER: Rachel Lemus APRN-VOTING MACHINE REPAIRER SURGICAL STAFF Environmental [employer] Faculty Member: Yumiko Leal RN; Theodora Anaya RN Scrub Person: Giuliano Camacho COMPLICATIONS None ESTIMATED BLOOD LOSS Minimal SPECIMENS ID Type Source Tests Collected by Time Destination 1 : Antral biopsy Permanent SURG PATH SURG PATH REQUEST Lazaro Perry MD 01/20/2025 1610 Ed Griggs MD January 20, 2025 4:16 PM * Nursing Notes - Rich Brown RN - 01/20/2025 2:17 PM EDT 1416- called patient experience Sammie; left voicemail. Patient OR delay, was wondering if could stop by to see patient/family 1430- return call from Sammie. Covering advocate, Jaiden notified of situation. * Nursing Notes - Em Denney RN - 01/20/2025 1:[address] Richar Nolasco ([facility]) notified of tele rhythm interpretation of A-fib. Verbal order received for ECG once. 1306: Call received from Dr. Nolasco. He is placed additional lab orders. Will draw in preop. [facility] in [facility] Surgery Postoperative evaluation and management note* Op Note - Ed Griggs MD - 01/20/2025 4:16 PM EDT Images from the original note were not included. Operative Report PATIENT: Deny Bronson : 1970 SEX: male PROCEDURE DATE: 01/20/25 Diagnosis PREOPERATIVE DIAGNOSIS: Other ulcerative colitis with complication [K51.819] POSTOPERATIVE DIAGNOSIS: Other ulcerative colitis with complication [K51.819] PROCEDURE: 1). EGD with biopsies Surgical Staff SURGEON: Surgeons and Role: Panel 1: * Lazaro Perry MD - Primary Panel 2: * Ed Griggs MD - Primary SURGICAL STAFF: Environmental Studies Faculty Member: Yumiko Leal RN; Theodora Anaya RN Scrub Person: Giuliano Camacho ANESTHESIA: MAC Findings OPERATIVE INDICATIONS: Deny Bronson is a 54 y.o. male with a PMH of UC, melena and recent diagnosis of liver cancer who presents for EGD and colonoscopy. INTRAOPERATIVE FINDINGS: -No significant EGD findings -Antral inflammation noted. Biopsies taken Duration: 0 Hr 4 Min 6 Sec DESCRIPTION OF PROCEDURE: The patient was brought into the operating room and placed in the right lateral decubitus position.MAC anesthesia was administered The patient tolerated anesthesia well. No preoperative antibiotics were administered. A surgical timeout was performed ensuring the correct patient, procedure, site, and instruments are in the appropriate position. The EGD scope was inserted into the mouth and the esophagus was entered. There were no significant esophageal findings. The Z line was noted to be at 44 cm. The stomach was then entered and appeared to have a minimal amount of antral inflammation. The pylorus was then entered and the first and second portion of the duodenum was identified and noted to be normal. The scope was then retracted back into the stomach where a retroflex view of the hiatus was visualized and noted to be normal. We thenproceeded back to the antrum and biopsies were taken, labeled antral biopsies. The stomach was thensuctioned and withdrawn from the patient. The procedure was then turned over to the Colorectal team. Please see Dr. Perry's note for further details of their procedure. ESTIMATED BLOOD LOSS: Minimal COMPLICATIONS: None SPECIMENS: ID Type Source Tests Collected by Time Destination 1 : Antral biopsy Permanent SURG PATH SURG PATH REQUEST Lazaro Perry MD 01/20/2025 1610 DISPOSITION: Stable to PACU. Ed Griggs MD [facility] Surgery Postoperative evaluation and management note* Brief Op Note - Ed Griggs MD - 01/20/2025 4:16 PM EDT Deny Bronson ([id number]) PRE OPERATIVE DIAGNOSIS Other ulcerative colitis with complication [K51.819] POST OPERATIVE DIAGNOSIS Other ulcerative colitis with complication [K51.819] PROCEDURE PERFORMED 1). EGD with biopsies PRIMARY CLOSURE N/A INTRAOPERATIVE FINDINGS -No significant EGD findings -Antral inflammation noted. Biopsies taken SURGEON Surgeons and Role: Panel 1: * Lazaro Perry MD - Primary Panel 2: * Ed Griggs MD - Primary ANESTHESIOLOGIST Anesthesiologist: Jaya Torres MD VOTING MACHINE REPAIRER: Rachel Lemus APRN-VOTING MACHINE REPAIRER SURGICAL STAFF Environmental [employer] Faculty Member: Yumiko Leal RN; Theodora Anaya RN Scrub Person: Giuliano Camacho COMPLICATIONS None ESTIMATED BLOOD LOSS Minimal SPECIMENS ID Type Source Tests Collected by Time Destination 1 : Antral biopsy Permanent SURG PATH SURG PATH REQUEST Lazaro Perry MD 01/20/2025 1610 Ed Griggs MD January 20, 2025 4:16 PM [facility]04-15-2025 Hospital Discharge instructions* Discharge Instructions* Dennis Hammond MD - 01/20/2025 3:[address] Perry next week for a pathology review. Please call [phone] Patient Discharge Instructions after Anesthesia and Sedation You have had general anesthesia or sedation for your surgery/procedure. You may feel sleepy after your surgery/procedure due to the medicines used for general anesthesia or sedation. These medicines can stay in your body for up to 24-hours. It is important that you: Do not drive a car, operate equipment or drink alcohol for at least 24-hours Do not make any important decisions or sign any legal documents until you recover Do not go back to your regular activities such as work or exercise until your doctors say it's OK Have safe transport by a responsible adult to your home or other destination If you are traveling by public transit, a responsible adult, other than the public motor vehicle escort driver, must be with you Once home, a responsible adult must be present to attend to any additional needs that you may have for a minimum of 6 hours from the time that you are discharged Make sure you Speak Up if you have any questions ! Notify Your Doctor or Nurse if you have any of the following: Stroke Symptoms: Call 911 if you suddenly have any of these signs of a stroke: Numbness or muscle weakness Trouble swallowing Problems talking Dizziness or feeling unsteady Severe headache Confusion Respiratory Changes: Call your doctor or nurse if you have more shortness of breath, a cough that gets worse and blood in the sputum you cough up Deep Vein Thrombosis Symptoms: Call your doctor or nurse right away if you have any signs of blood clots such as Tender, swollen or reddened areas anywhere in your leg. Numbness or tingling in your lower leg or calf, or at the top of your leg or groin Skin on you leg looks pale or blue or feels cold to touch Chest pain or have trouble breathing Fever or chills Decreased Circulation: Call your doctor or nurse if you have swelling, numbness or loss of feeling,color change in the skin to either very pale or blue cartwright in color and more pain. Bleeding or bruising If you have bleeding, apply pressure to the site and hold the pressure firmly for 5 minutes. If thebleeding continues, apply pressure again and call 911. If the bleeding stopped, call your doctor toreport it. Call your doctor or nurse right away if you have increased bleeding from your site and increased bruising or a lump forms or gets larger under your skin at the site. Fever, Chills, or Flu: Call your doctor or nurse if you have a temperature greater than 100.5 and 101 degrees F and/or chills. Nausea and Vomiting: Call your doctor or nurse if you have nausea and vomiting that continues more than 24 hours, will not let you keep medicine down and will not let you keep fluids down Sudden Onset of Symptoms: Call 911 if you suddenly have: Leg weakness and spasm Loss of bladder or bowel function Seizure Chest pain Shortness of breath Unrelieved Pain : Call your doctor or nurse if your pain gets worse or is not eased 1 hour after taking your pain medicine. Symptom Management: Pain Medications Many patients are able to manage their pain after surgery with medicine such as acetaminophen (Tylenol or store brands) and ibuprofen (Motrin or Advil). Good pain control helps you feel comfortable so you can take deep breaths, walk and sleep. Take these medications around the clock and use oxycodone only for breakthrough pain. Your care team will also talk to you about using a heating pad or ice packs on your incisions to help reduce pain. Take an over the counter stool softeners twice daily while taking the narcotic pain medicine to prevent constipation. Take a stool softener twice a day as long as you remain on pain medicine. If you do not have a bowel movement within 5 days of your surgery, please take milk of magnesia. If you do not have a bowel movement within 12 hours of milk of magnesia, call the office. Incentive Spirometer Do your breathing exercises with your incentive spirometer every 1 to 2 hours when you are awake asinstructed. This will help open the air sacs in your lungs and may reduce future problems. Take Your Medicines Take your prescribed medicines as ordered to avoid a set back in your treatment plan. Many of your medicines will cause undesirable side effects if stopped suddenly. Activity: Please follow these instructions: You may perform the following activities: -Resume your usual activities without restrictions. Bathing: Bathing Restrictions: You may shower. Do not allow the stream of water to flow directly on your incision. Pat dry when done. DO NOT TAKE A BATH UNTIL CLEARED BY YOUR PHYSICIAN. Diet: Your doctor has recommended that you follow these diet instructions at home. Refer to the patient education materials you received during your hospital stay. If you would like more nutrition counseling, ask your doctor about making an appointment with an outpatient dietitian. No restrictions-usual diet -You are to resume your usual diet at home. Additional Contacts: Evening and Weekend Contacts If you have questions or concerns during evening, weekend, or holiday hours, please call: -[facility] photographic machine operator at [phone]. -[facility] photographic machine operator at [phone] Ask the photographic machine operator to page the on-call doctor for Surgery, the service that was responsible for your care while you were in the hospital. If you having an emergency, call 911. documented in this encounterSum[facility] Health04-[facility]25 Nurse Note* Nursing Notes - Rich Brwon RN - 01/20/2025 2:17 PM EDT 1416- called patient experience Sammie; left voicemail. Patient OR delay, was wondering if could stop by to see patient/family 1430- return call from Sammie. Covering advocate, Jaiden notified of situation. [facility]04-15-2025 Nurse Note* Nursing Notes - Em Denney RN - 01/20/2025 1:[address] Richar Nolasco ([facility]) notified of tele rhythm interpretation of A-fib. Verbal order received for ECG once. 1306: Call received from Dr. Nolasco. He is placed additional lab orders. Will draw in preop. [facility]04-15-2025 History and physical note* Ed Griggs MD - 01/20/2025 12:12 PM EDT Images from the original note were not included. Brief Preop History and Physical Patient: Deny Bronson Date: 01/20/25 Preoperative Diagnosis: Liver cancer, Hx of Ulcerative Colitis, Melena Planned Procedure: Procedure(s) (LRB): COLONOSCOPY DIAGNOSTIC (N/A) EGD DIAGNOSTIC (N/A) HPI Deny Bronson is a 54 y.o. male with a past medical history of UC and recent diagnosis of liver cancerwho presents for EGD and colonoscopy. He reports that he has had multiple episodes of melena and required transfusions in the past. He underwent a CT guided liver biopsy a few months ago, which was positive for adenocarcinoma. Medical History: Past Medical History: Diagnosis Date Heart block Surgical History: Past Surgical History: Procedure Laterality Date ENDOSCOPY SMALL INTESTINE POUCH W/ BX HEART VALVE SURGERY Meds: Current Outpatient Medications Medication Instructions Ferrous Gluconate (IRON 27 PO) Take by mouth. furOSEmide 20 MG tablet 1 tablet, DAILY guaiFENesin (MUCINEX) 600 mg, 2 TIMES DAILY Pantoprazole [address] DR 1 tablet, DAILY potassium chloride 10 MEQ Tab CR tablet ER 1 tablet, DAILY Prevalite 4 g Pack packet use 4 grams with a meal BY MOUTH THREE TIMES DAILY DIRECTED - avoid other meds within 1 hour before or 4-6 hours after dose Allergy: Allergies Allergen Reactions Acetaminophen Itching Penicillins Rash Vitals / Physical Exam Vitals: Blood pressure 108/63, pulse 93, temperature 97.7 F (36.5 C), temperature source Oral, resp. rate 16, height 1.918 m (6' 3.5), weight 91.1 kg (200 lb 14.4 oz), SpO2 100%. Physical Exam: General appearance: Lying in bed, appears comfortable Head: Normocephalic, atraumatic Lungs: Normal work of breathing, equal chest rise bilaterally Heart: Regular rate Abdomen: Soft, non-tender Neurologic: A/o x 3 Labs / Imaging Labs: Lab Results Component Value Date SODIUM 140 09/12/2001 POTASSIUM 3.6 09/15/2001 CHLORIDE 105 09/12/2001 CO2 29.3 09/12/2001 BUN 10 09/15/2001 CREATSERUM 0.90 09/15/2001 GLUCOSE 173 (H) 09/12/2001 Lab Results Component Value Date WBC 14.4 (H) 09/12/2001 HGB 10.3 (L) 09/12/2001 HCT 30.8 (L) 09/12/2001 PLATELET 300 09/12/2001 MCV 86.2 09/12/2001 Imaging: None Assessment / Plan Deny Bronson is a 54 y.o. male with a PMH of UC and recent diagnosis of liver cancer who presents forEGD and colonoscopy. -Plan for EGD Ed Griggs MD General and GI Surgery Fellow [facility] Work Phone: [phone] 387-568004-15-2025 History and physical note* Ed Griggs MD - 01/20/2025 12:12 PM EDT Images from the original note were not included. Brief Preop History and Physical Patient: Deny Bronson Date: 01/20/25 Preoperative Diagnosis: Liver cancer, Hx of Ulcerative Colitis, Melena Planned Procedure: Procedure(s) (LRB): COLONOSCOPY DIAGNOSTIC (N/A) EGD DIAGNOSTIC (N/A) HPI Deny Bronson is a 54 y.o. male with a past medical history of UC and recent diagnosis of liver cancerwho presents for EGD and colonoscopy. He reports that he has had multiple episodes of melena and required transfusions in the past. He underwent a CT guided liver biopsy a few months ago, which was positive for adenocarcinoma. Medical History: Past Medical History: Diagnosis Date Heart block Surgical History: Past Surgical History: Procedure Laterality Date ENDOSCOPY SMALL INTESTINE POUCH W/ BX HEART VALVE SURGERY Meds: Current Outpatient Medications Medication Instructions Ferrous Gluconate (IRON 27 PO) Take by mouth. furOSEmide 20 MG tablet 1 tablet, DAILY guaiFENesin (MUCINEX) 600 mg, 2 TIMES DAILY Pantoprazole [address] DR 1 tablet, DAILY potassium chloride 10 MEQ Tab CR tablet ER 1 tablet, DAILY Prevalite 4 g Pack packet use 4 grams with a meal BY MOUTH THREE TIMES DAILY DIRECTED - avoid other meds within 1 hour before or 4-6 hours after dose Allergy: Allergies Allergen Reactions Acetaminophen Itching Penicillins Rash Vitals / Physical Exam Vitals: Blood pressure 108/63, pulse 93, temperature 97.7 F (36.5 C), temperature source Oral, resp. rate 16, height 1.918 m (6' 3.5), weight 91.1 kg (200 lb 14.4 oz), SpO2 100%. Physical Exam: General appearance: Lying in bed, appears comfortable Head: Normocephalic, atraumatic Lungs: Normal work of breathing, equal chest rise bilaterally Heart: Regular rate Abdomen: Soft, non-tender Neurologic: A/o x 3 Labs / Imaging Labs: Lab Results Component Value Date SODIUM 140 09/12/2001 POTASSIUM 3.6 09/15/2001 CHLORIDE 105 09/12/2001 CO2 29.3 09/12/2001 BUN 10 09/15/2001 CREATSERUM 0.90 09/15/2001 GLUCOSE 173 (H) 09/12/2001 Lab Results Component Value Date WBC 14.4 (H) 09/12/2001 HGB 10.3 (L) 09/12/2001 HCT 30.8 (L) 09/12/2001 PLATELET 300 09/12/2001 MCV 86.2 09/12/2001 Imaging: None Assessment / Plan Deny Bronson is a 54 y.o. male with a PMH of UC and recent diagnosis of liver cancer who presents forEGD and colonoscopy. -Plan for EGD Ed Griggs MD General and GI Surgery Fellow [facility] Nurse Surgical operation note* Rich Brown RN - 01/20/2025 11:50 AM EDT Patient denies hx of chemo and radiation. Patient denies metal or foreign objects in body EXCEPT artificial aortic valve. Patient denies hx of seizure or stroke. [facility] Nurse Note* Rich Brown RN - 01/20/2025 11:50 AM EDT Patient denies hx of chemo and radiation. Patient denies metal or foreign objects in body EXCEPT artificial aortic valve. Patient denies hx of seizure or stroke. [facility] Medical Records Department [address] [place] [address] Discharge Summary 11/26/24 1641 MR#: [id number] Acct: [id number] Name: DENY BRONSON Rep #: [id number] : 1970 54 From: Salena Matthews MD PCP: Dr. Jose Ramachandran DO Status:DIS IN [id number] Providers Date of Admission: 11/22/24 Date of Discharge: 11/26/24 Primary Care Physician: Dr. Jose Ramachandran DO Consultations 11/22/24 19:52 Consult: Gastroenterology Routine Consulting Provider: [facility] Reason for Consult: GI bleed EMERGENT Consult: No MD Notified: Yes Date Notified: 11/22/24 Time Notified: 19:18 Method of Notification: ED Physician Initiated Reason For Visit: SEVERE ANEMIA Diagnosis Discharge Diagnosis (1) Liver mass: Status: Acute Code(s): R16.0 - Hepatomegaly, not elsewhere classified (2) Acute GI bleeding: Status: Acute Code(s): K92.2 - Gastrointestinal hemorrhage, unspecified (3) Dyspnea on exertion: Status: Acute Code(s): R06.09 - Other forms of dyspnea (4) Fatigue: Status: Acute Code(s): R53.83 - Other fatigue (5) Lower extremity edema: Status: Acute Code(s): R60.0 - Localized edema Medications at Discharge Home Medications guaifenesin 1,200 mg tablet, extended release 12 hr (Mucinex) 1,200 mg PO DAILY 11/22/24 furosemide 20 mg tablet (Lasix) 20 mg PO DAILY #30 tabs 11/26/24 pantoprazole 40 mg tablet,delayed release 40 mg PO DAILY #30 tabs 11/26/24 potassium chloride 10 mEq tablet,extended release 10 meq PO DAILY #30 tabs 11/26/24 Hospital Course Operations None Procedures Colonoscopy and EGD Summary of Care Provided Minutes Spent on Discharge: 47 Hospital Course: Patient is a 54-year-old male with a past medical history as outlined was admitted through the ED on 11/22/2024 with a complaint of abnormal labs. He had gotten a call from [facility] and he was told to go to the ED on account of hemoglobin of 5.7. He did admit to having blood in his stool but said it was chronic due to ulcerative colitis. He had previously had total colectomy and only had small bowel and also had chronic diarrhea. He admitted to chronic weight loss and swelling in his lower extremities over the past several months prior to admission. On admission hemoglobin was 5.8. CT of the chest showed no evidence of PE and showed severe cardiomegaly and dilatation of the bilateral distal pulmonary arteries with enlarged mediastinal lymph nodes consistent with history of granulomatosis with polyangiitis. CT of the abdomen and pelvis showed previous colectomy with an ileoanal pouch, intramural gas with wall thickening concerning for pneumatosis and necrosis of the anastomosis, bowel wall thickening with adjacent ascites and ill- defined hypodensities in the left hepatic lobe concerning for cholangiocarcinoma and diffuse retroperitoneal lymphadenopathy consistent with patient's history of granulomatosis with polyangiitis. He was admitted and managed for severe acute microcytic anemia and lower extremity edema concerning for heart failure in light of elevated BNP. Of note patient was also noted to be in A-fib on admission. This was new onset A-fib for him. Gastroenterology was consulted. Of note to the CT abdomen findings were also discussed with general surgery who thought it was an overread. He had 2D echo which showed EF of 65% with severe left ventricular hypertrophy and stage I diastolic dysfunction. There was also severe biatrial dilatation and bubble study was negative. Cardiology preoperatively read stratified him for EGD and recommended that he could have the procedure done. He had EGD which showed normal esophagus and gastroparesis as well as gastric stenosis at the pylorus and also duodenitis. He had flexible sigmoidoscopy which showed subepithelial nodule in the rectum which was likely the site of the blood loss and was biopsied. MRCP done showed a heterogeneous mass in the left hepatic lobe with severe left intrahepatic biliary dilatation suggestive of cholangiocarcinoma. Tumor markers were ordered and he had a liver biopsy during admission. Results of liver biopsy was still pending. Patient however improved and felt much better and was discharged home on 11/26/2024. Gastroenterology was okay with patient being discharged and he was to follow-up with gastroenterology on outpatient basis for the results of the liver biopsy and to discuss further management. He was discharged home on 11/26/2024. He was discharged on p.o. furosemide 20 mg daily, p.o. pantoprazole as well as p.o. potassium chloride supplementation. Of note he remained in normal sinus rhythm after the initial diagnosis of atrial fibrillation and was also rate controlled. He was therefore to follow-up with his PCP for start of rate limiting medication as needed. He was also not discharged (more content not included)...[facility]02-15-2025 Evaluation note* Diagnosis Onset Date Resolution Status Admit Date Cholangiocarcinoma acute Februa 2024 7:08pm Acute anemia resolved November 7:08pm Acute GI bleeding resolved 2024 7:08pm Dyspnea on exertion resolved u demetrius 2024 7:08pm Fatigue resolved November 22, 2024 7:08pm Lower extremity edema resolved Feb ruary 2024 7:08pm Liver mass deleted November 22, 2024 7:08pm Ulcerative colitis chronic Februa 2024 8:35am Liver mass deleted December 05, 2024 8:35am Anemia noneactive December 05, 2024 8:35am Ascites acute December 10 10:07am 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 acute December 10, 2024 10:07am Ulcerative colitis chronic December 10, 2024 10:07am Ascites acute December 29 10:17am 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 acute December 29, 2024 10:17am Ulcerative colitis chronic December 29, 2024 10:17am Ascites acute February 03 9:06am Mediastinal lymphadenopathy acute February 03, 2025 9:06am Mesenteric lymphadenopathy acute February 03, 2025 9:06am 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 acute February 03, 2025 9:06am Pelvic lymphadenopathy acute Ap ril 2024 9:06am Retroperitoneal lymphadenopathy acut e February 03, 2025 9:06am Ulcerative colitis chronic February 03, 2025 9:06am Ascites acute February 05, 2025 9:47am Encounter for education acute M ay 2024 9:47am Mediastinal lymphadenopathy acute February 05, 2025 9:47am Mesenteric lymphadenopathy acute February 05, 2025 9:47am 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 acute February 05, 2025 9: 47am Pelvic lymphadenopathy acute 2024 9:47am Retroperitoneal lymphadenopathy acut e February 05, 2025 9:47am Atrial fibrillation acute February 062024 8:06am 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 acute February 06, 2025 8: 06am History of aortic valve replacement with bioprosthetic valve chronic February 06, 2025 8: 06am Cholangiocarcinoma acute February 2:12pm Encounter for insertion of tunneled central venous catheter (CVC) with port acute February 2:12pm [facility] Work Phone: 1(678) 469-651602-15-2025 Evaluation note* Diagnosis Onset Date Resolution Status Admit Date Cholangiocarcinoma acute Februa 2024 7:08pm Acute anemia resolved November 7:08pm Acute GI bleeding resolved 2024 7:08pm Dyspnea on exertion resolved u [email or web address] 7:08pm Fatigue resolved November 22, 2024 7:08pm Lower extremity edema resolved Feb ruary 2024 7:08pm Liver mass deleted November 22, 2024 7:08pm Ulcerative colitis chronic Februa 2024 8:35am Liver mass deleted December 05, 2024 8:35am Anemia noneactive December 05, 2024 8:35am Ascites acute December 10 10:07am 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 acute December 10, 2024 10:07am Ulcerative colitis chronic December 10, 2024 10:07am Ascites acute December 29 10:17am 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 acute December 29, 2024 10:17am Ulcerative colitis chronic December 29, 2024 10:17am Ascites acute February 03 9:06am Mediastinal lymphadenopathy acute February 03, 2025 9:06am Mesenteric lymphadenopathy acute February 03, 2025 9:06am 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 acute February 03, 2025 9:06am Pelvic lymphadenopathy acute Ap 2024 9:06am Retroperitoneal lymphadenopathy acut e February 03, 2025 9:06am Ulcerative colitis chronic February 03, 2025 9:06am Ascites acute February 05, 2025 9:47am Encounter for education acute 2024 9:47am Mediastinal lymphadenopathy acute February 05, 2025 9:47am Mesenteric lymphadenopathy acute February 05, 2025 9:47am 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 acute February 05, 2025 9: 47am Pelvic lymphadenopathy acute 2024 9:47am Retroperitoneal lymphadenopathy acut e February 05, 2025 9:47am Atrial fibrillation acute February 062024 8:06am 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 acute February 06, 2025 8: 06am History of aortic valve replacement with bioprosthetic valve chronic February 06, 2025 8: 06am Cholangiocarcinoma acute February 2:12pm Encounter for insertion of tunneled central venous catheter (CVC) with port acute February 2:12pm Atrial fibrillation acute February 132024 10:14am Cardiac murmur acute February 13, 2 025 10:14am Cholangiocarcinoma acute February 10:14am Routine adult health maintenance acute February 13, 2025 10 :14am Iron deficiency anemia due t o chronic blood loss chronic February 13, 2025 10:14am [facility] Work Phone: 1(128) 217-911810-18-2024 NoteHNO ID: [id number] Author: HTOMAS GARCIA APRN.CONCESSION WORKER Service: ? Author Type: Nurse Practitioner Type: Progress Notes Filed: 07/25/2024 10:52 Note Text: This note was created using NoteWriter. Subjective Deny Bronson is a 54 year old male. HPI Pt complains of an itchy burning rash over his entire body. It seems worse while he is in bed. He denies any inside pets. 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 He does note that his house is less than well-maintained. Review of Systems Constitutional: Negative for fatigue and fever. Skin: Positive for rash. Objective BP 100/61 Pulse 110 Temp 36.2 ?C (97.1 ?F) Resp 18 Wt 94.6 kg (208 lb 8.9 oz) SpO2 100% Physical Exam Vitals and nursing note reviewed. Constitutional: General: He is not in acute distress. Appearance: Normal appearance. He is not ill-appearing. HENT: Head: Normocephalic. Mouth/Throat: Mouth: Mucous membranes are moist. Eyes: Conjunctiva/sclera: Conjunctivae normal. Pulmonary: Effort: Pulmonary effort is normal. Musculoskeletal: General: Normal range of motion. Cervical back: Normal range of motion. Skin: General: Skin is warm and dry. Comments: Patient has scattered small scabbed areas over his entire body. They are not linear in nature. They are not connected. There is no surrounding erythema to any of these areas. No drainage noted. No specific insects noted on exam. Neurological: General: No focal deficit present. Mental Status: He is alert. Psychiatric: Mood and Affect: Mood normal. Behavior: Behavior normal. Assessment and Plan ASSESSMENT/PLAN: 1. Insect bites and stings, initial encounter - ICD9: 919.4, 989.5, E906.4, E905.5, ICD10: W57.XXXA I have high suspicion for bedbugs as a cause of the patient's symptoms. Patient notes that he has washed his sheets but his mattress is very old and his house is not overly tidy. I recommended [id number]-sqgpujk antihistamine such as Claritin or Zyrtec and discussed with him that he would benefit with having an reconditioning associate come and evaluate his house for insects and/or bedbugs. Patient did bring a small plastic bag of things that he found on his body which appeared to be mostly scabs and mouse excrement. Thomas Garcia APRN.[facility] History of Present illness Narrative* Thomas Garcia APRN.[facility] - 07/25/2024 10:17 AM EDT This note was created using NoteWriter. Subjective Deny Bronson is a 54 year old male. HPI Pt complains of an itchy burning rash over his entire body. It seems worse while he is in bed. He denies any inside pets. 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 He does note that his house is less than well-maintained. Review of Systems Constitutional: Negative for fatigue and fever. Skin: Positive for rash. Objective BP 100/61 Pulse 110 Temp 36.2 C (97.1 F) Resp 18 Wt 94.6 kg (208 lb 8.9 oz) SpO2 100% Physical Exam Vitals and nursing note reviewed. Constitutional: General: He is not in acute distress. Appearance: Normal appearance. He is not ill-appearing. HENT: Head: Normocephalic. Mouth/Throat: Mouth: Mucous membranes are moist. Eyes: Conjunctiva/sclera: Conjunctivae normal. Pulmonary: Effort: Pulmonary effort is normal. Musculoskeletal: General: Normal range of motion. Cervical back: Normal range of motion. Skin: General: Skin is warm and dry. Comments: Patient has scattered small scabbed areas over his entire body. They are not linear in nature. They are not connected. There is no surrounding erythema to any of these areas. No drainage noted. No specific insects noted on exam. Neurological: General: No focal deficit present. Mental Status: He is alert. Psychiatric: Mood and Affect: Mood normal. Behavior: Behavior normal. Assessment and Plan ASSESSMENT/PLAN: 1. Insect bites and stings, initial encounter - ICD9: 919.4, 989.5, E906.4, E905.5, ICD10: W57.XXXA I have high suspicion for bedbugs as a cause of the patient's symptoms. Patient notes that he has washed his sheets but his mattress is very old and his house is not overly tidy. I recommended ydgq-cem-lvqunce antihistamine such as Claritin or Zyrtec and discussed with him that he would benefit with having an reconditioning associate come and evaluate his house for insects and/or bedbugs. Patient did bring asmall plastic bag of things that he found on his body which appeared to be mostly scabs and mouse excrement. Thomas Garcia APRN.LA[facility] Note. MICRO - Microbiology PROCEDURE: Blood Culture (bacterial) [*1] SOURCE: Blood BODY SITE: COLLECTED DATE/TIME: 01/05/2021 14:05 EDT RECEIVED DATE/TIME: 01/05/2021 20:44 EDT START DATE/TIME: 01/05/2021 20:44 EDT FREE TEXT SOURCE: FINAL REPORTS Final Report [] Verified Date/Time/Personnel: 01/10/2021 20:59 EDT Blood Culture: No Growth at 5 days. PRELIMINARY REPORTS Preliminary Report [] Verified Date/Time/Personnel: 01/05/2021 21:59 EDT Culture has been received in lab and is no growth to date. Routine cultures are held for 5 days. Performing Locations *1: This test was performed at: [address], [address] [place] [address] ([place])Comment on above:Performed By: #### PBNP #### [address] [id number] #### BMP, GFR #### [address] [id number] Note. MICRO - Microbiology PROCEDURE: Blood Culture (bacterial) [*1] SOURCE: Blood BODY SITE: COLLECTED DATE/TIME: 01/05/2021 14:05 EDT RECEIVED DATE/TIME: 01/05/2021 20:44 EDT START DATE/TIME: 01/05/2021 20:44 EDT FREE TEXT SOURCE: FINAL REPORTS Final Report [] Verified Date/Time/Personnel: 01/10/2021 20:59 EDT Blood Culture: No Growth at 5 days. PRELIMINARY REPORTS Preliminary Report [] Verified Date/Time/Personnel: 01/05/2021 21:59 EDT Culture has been received in lab and is no growth to date. Routine cultures are held for 5 days. Performing Locations *1: This test was performed at: [address], [address] [place] [address] ([place])Comment on above:Performed By: #### PBNP #### [address] [id number] #### BMP, GFR #### [address] [id number] Note. MICRO - Microbiology PROCEDURE: Blood Culture (bacterial) [*1] SOURCE: Blood BODY SITE: COLLECTED DATE/TIME: 07/01/2020 22:10 EDT RECEIVED DATE/TIME: 07/02/2020 14:46 EDT START DATE/TIME: 07/02/2020 14:46 EDT FREE TEXT SOURCE: FINAL REPORTS Final Report [] Verified Date/Time/Personnel: 07/07/2020 14:59 EDT Blood Culture: No Growth at 5 days. PRELIMINARY REPORTS Preliminary Report [] Verified Date/Time/Personnel: 07/02/2020 15:59 EDT Culture has been received in lab and is no growth to date. Routine cultures are held for 5 days. Performing Locations *1: This test was performed at: [address], [address] [place] [address] ([place])Comment on above:Performed By: #### PBNP #### [address] [id number] #### BMP, GFR #### [address] [id number] Note. MICRO - Microbiology PROCEDURE: Blood Culture (bacterial) [*1] SOURCE: Blood BODY SITE: COLLECTED DATE/TIME: 07/01/2020 22:10 EDT RECEIVED DATE/TIME: 07/02/2020 14:46 EDT START DATE/TIME: 07/02/2020 14:46 EDT FREE TEXT SOURCE: FINAL REPORTS Final Report [] Verified Date/Time/Personnel: 07/07/2020 14:59 EDT Blood Culture: No Growth at 5 days. PRELIMINARY REPORTS Preliminary Report [] Verified Date/Time/Personnel: 07/02/2020 15:59 EDT Culture has been received in lab and is no growth to date. Routine cultures are held for 5 days. Performing Locations *1: This test was performed at: [address], [address] [place] [address] ([place])Comment on above:Performed By: #### PBNP #### [address] [id number] #### BMP, GFR #### [address] [id number] Note. MICRO - Microbiology PROCEDURE: Legionella Urine Ag [*1] SOURCE: Urine BODY SITE: COLLECTED DATE/TIME: 07/02/2020 01:17 EDT RECEIVED DATE/TIME: 07/02/2020 14:27 EDT START DATE/TIME: 07/02/2020 14:27 EDT FREE TEXT SOURCE: FINAL REPORTS Final Report [] Verified Date/Time/Personnel: 07/02/2020 14:55 EDT Presumptive negative for L. pneumophila serogroup 1 antigen in urine, suggesting no recent or current infection. Legionnaire's disease cannot be ruled out since other serogroups and species may also cause disease. Performing Locations *1: This test was performed at: [address], [facility] , [facility] ([place])Comment on above:Performed By: #### PBNP #### [address] [address] #### BMP, GFR #### [address] [id number] Consult note Author Himanshu Nguyen [facility] Note Date/Time February 11, 2025 2:16pm [facility] Medical Records Department [address] [place] [address] Anesthesia Postop Eval I 02/11/25 1415 MR#: [id number] Acct: [id number] Name: DENY BRONSON Rep #:[id number] : 1970 55 From: Himanshu Nguyen CRNA PCP: JACK Mccall Status:REG SDC Y Race: C Location: [place] [address] Anesthesia: Postop Eval I Current Vital Signs Temperature: 98.3 F Pulse Rate: 93 Blood Pressure: 99/46 Respiratory Rate: 20 Pulse Ox: 98 Oxygen Delivery Method: Room Air Assessment Airway patent: Yes Spontaneous unlabored respirations: Yes Mental status: Awake and Calm nausea: No Vomiting: No Anesthesia Complication: No Fluid Hydration Crystalloid volume administer (ml): 700 Total IV fluid infused: 700 Progress Note Anesthesia document: Postop Eval 1 completed: Yes 02/11/25 1416 <Electronically signed by Himanshu ortiz CRNA> Date _ Himanshu Nguyen CRNA Cosigner Signature: Date CC: ~ Signed [facility] Work Phone: Consult note Author Dwayne Castillo [facility] Note Date/Time February 11, 2025 3:39pm [facility] Medical Records Department [address] [place] [address] [place] [address] Anesthesia Postop Eval II 02/11/25 1447 MR#: [id number] Acct: [id number] Name: DENY BRONSON Rep #:[id number] : 1970 55 From: Dwayne Castillo MD PCP: JACK Mccall Status:REG SDC Y Race: C Location: [place] [address] Anesthesia Postop Eval I Sum Postop Eval Completion status Anesthesia document: Postop Eval 1 completed: Yes Anesthesia Postop Eval I Summary Anesthesia Postop Eval I Summary: Anesthesia Postop Eval I: Assessment Summary Airway patent Yes 02/11/25 14:16 VOTING MACHINE REPAIRER.[email or web address] Spontaneous unlabored Yes 02/11/25 14:16 VOTING MACHINE REPAIRER.[email or web address] respirations Mental status Awake,Calm 02/11/25 14:16 VOTING MACHINE REPAIRER.[email or web address] nausea No 02/11/25 14:16 VOTING MACHINE REPAIRER.[email or web address] Vomiting No 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 Postop Eval I: Fluid Summary Crystalloid volume administer 700 02/11/25 14:16 VOTING MACHINE REPAIRER.PKEL (ml) Colloids volume administered ( ml) Blood Product volume administered (ml) Total IV fluid infused 700 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 Eval I: Summary Notes Anesthesia Complication No 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 Complication Comment: Post-operative progress note Anesthesia: Postop Eval II Evaluation Mental status: Awake Pain Level: 0 nausea: No Vomiting: No Complications Anesthesia Complication: No 02/11/25 1447 <Electronically signed by Dwayne Castillo MD> Date _ Dwayne Castillo MD Cosigner Signature: Date CC: ~ Signed [facility] Work Phone: Discharge summary Author Maya Live [facility] Note Date/Time February 11, 2025 2:46pm [facility] Medical Records Department [address] [place] [address] Instructions for Home/Discharge Instructions 02/11/25 1444 MR#: [id number] Acct: [id number] Name: DENY BRONSON Rep #:[id number] : 1970 55 From: Maya Live MD PCP: JACK Mccall Status:REG [facility] Discharge Instructions Procedure Port-A-Cath Diet Discharge Diet: Light diet - advance as tolerated Activity May shower in (days): 5 (Keep port site clean and dry x5 days. Neck incision okay to get wet after 1 day. Okay to lower shower and upper sponge bath. OR okay to taper off port site with a Ziploc bag to shower) Lifting Restrictions: No lifting > 15 pounds for 3 days with the arm on the sideof the port Dressing / Incision Call your doctor if your incision/area has: Continuous Slow Oozing, Sudden Increased Bleeding, Increased Pain/ Swelling, Increased Redness, Foul Smelling Discharge and Swelling at the incision site Call your doctor if you observe: Fever of 101 or Higher Change Dressing in: 2 days (2-3 days- port site; ok to remove neck opsite in 1 day) Follow Up Care Please Follow Up With: Maya Live MD When: In 10 days for permanent suture removal?call office for appointment Test Results: Test results from this visit will be discussed in further detail at your follow- up appointment, if applicable. Discharge Plan Admission Attending Provider: Maya Live Primary Care Provider: Johny Rodríguez Instructions Print Language: Kazakh Discharge Orders/Prescriptions Prescriptions: New tramadol 50 mg tablet 50 mg PO Q6H PRN (Reason: pain) 2 Days Qty: 5 0RF Continued Cholestyramine Light 4 gram powder 4 g PO TID Qty: 239.4 2RF Rx Instructions: administer w/meal; avoid other meds within 1hr before or 4-6hr after dose loperamide [Imodium A-D] 2 mg capsule 2 mg PO QDAY metoprolol succinate [Toprol XL] 25 mg tablet extended release 24 hr 25 mg PO QDAY Qty: 90 3RF guaifenesin [Mucinex] 1,200 mg tablet extended release 12hr 1,200 mg PO DAILY furosemide [Lasix] 20 mg tablet 20 mg PO DAILY Qty: 30 2RF pantoprazole 40 mg tablet,delayed release (DR/EC) 40 mg PO DAILY Qty: 30 2RF Referrals / Follow Up: Johny Rodríguez PA [Primary Care Provider] - Disposition Disposition (needs filled in before D/C Order can be placed): Home, Self Care 02/11/25 1446<Electronically signed by Maya Live MD>Maya Live MD CC: JACK Mccall ~ Signed [facility] Work Phone: Evaluation noteNo assessment information available [facility] Work Phone: Evaluation note* Diagnosis Insect bites and stings, initial encounter- [facility] Other ulcerative colitis with complication- Primary documented in this encounter [facility] for referral (narrative)* Radiology (Routine) - New Request Specialty Diagnoses / Procedures Referred By Cary gibbons Referred To Contact Procedures ECG Richar Nolasco MD [address] [place] [address] Phone: tel: fax: Referral ID Status Reason Start Date Expiration Date V isits Requested Visits Authorized [id number] New Request 01/20/2025 02/14/2026 [facility] Auth/Cert Specialty Diagnoses / Procedures Referred By Cary t Referred To Contact Diagnoses Other ulcerative colitis with complication Other ulcerative colitis with complication [K51.819] Procedures AR COLONOSCOPY FLX DX W/COLLJ SPEC WHEN PFRMD AR ESOPHAGOGASTRODUODENOSCOPY TRANSORAL DIAGNOSTIC COLONOSCOPY DIAGNOSTIC EGD DIAGNOSTIC Lazaro Perry MD [address] [facility] [address] [place] [address] Phone: tel: fax: [facility] [address] [place] [address] Referral ID Status Reason Start Date Expiration Date Visits Re quested Visits Authorized [id number] 1 1 [facility] Summary Purpose Family History No Family History Records Found Relationship Condition Age at Onset Recorded Date/T arnold Not Specified Cardiac disease Unknown Advance Directives No Advanced Directives Records Found Advance Directive Response Recorded Date/ Time Advance Directives No January 01, 2 014 5:07pm Living Will No June 25, 2020 10:52am Power of Repairer Typewriter No June 10:52am Advance Directive Response Recorded Date/ Time Do you have a Healthcare Power of Repairer Typewriter? No February 10, 2025 8:35am Living Will No November 22, 025 8:52pm Do you have a Healthcare Power of Repairer Typewriter? No November 22, 2024 8:52pm Advance Directives No January 01, 2 014 5:07pm Chief Complaint and Reason for Visit Chief Complaint CBC,CRP,IRON SEE ORDER Chief Complaint Admit Date SEVERE ANEMIA November 22, 2024 7:08pm SEVERE ANEMIA November 23, 2024 11:30am SEVERE ANEMIA November 23, 2024 1:44pm BLE SWELLING November 24, 2024 8:40am SEVERE ANEMIA November 24, 2024 10:28am SEVERE ANEMIA November 24, 2024 1:50pm SEVERE ANEMIA November 25, 2024 5:10pm SEVERE ANEMIA November 25, 2024 5:31pm SEVERE ANEMIA November 26, 2024 4:41pm Anemia December 05, 2024 8:35am ADENOCARCINOMA LIVER DIFFUSE RP ADENOPAT HY December 10, 2024 10:07am REVIEW PET December 29, 2024 10: 17am F/U AFTER [facility] (GET NOTE/PATH) January 9:06am CHEMO ED February 05, 2025 9:47am AFIB(ISCKRARUS) February 06, 2025 8:06am PI MODIFIER February 09, 2025 12:00p m PORT PLACEMENT February 09, 2025 2:12pm Reason for Visit Admit Date Cholangiocarcinoma November 22, 2024 7:08pm Acute anemia November 22, 2024 7:08pm Acute GI bleeding November 22, 2024 7:08pm Dyspnea on exertion November 22, 2024 7:08pm Fatigue November 22, 2024 7:08pm Lower extremity edema November 22 7:08pm Liver mass November 22, 2024 7:08pm Ulcerative colitis December 05, 2024 8:35am Liver mass December 05, 2024 8:35am Anemia December 05, 2024 8:35am Ascites December 10, 2024 10:0 7am Metastasis to liver of unknown origin [facility] 2024 10:07am Ulcerative colitis December 10, 2024 10:0 7am Ascites December 29, 2024 10: 17am Metastasis to liver of unknown origin [facility] 2024 10:17am Ulcerative colitis December 29, 2024 10: 17am Ascites February 03, 2025 9:0 6am Mediastinal lymphadenopathy February 03, 2025 9:06am Mesenteric lymphadenopathy February 03, 2 025 9:06am Metastasis to liver of unknown origin Ap r[facility] 2024 9:06am Pelvic lymphadenopathy February 03, 2025 9:06am Retroperitoneal lymphadenopathy February 032024 9:06am Ulcerative colitis February 03, 2025 9:0 6am Ascites February 05, 2025 9:47am Encounter for education February 05, 2025 9: 47am Mediastinal lymphadenopathy February 05 9:47am Mesenteric lymphadenopathy February 05, 2025 9:47am Metastasis to liver of unknown origin Ma y 2024 9:47am Pelvic lymphadenopathy February 05, 2025 9:4 7am Retroperitoneal lymphadenopathy February 05, 2025 9:47am Atrial fibrillation February 06, 2025 8:06am Metastasis to liver of unknown origin Ma y 2024 8:06am History of aortic valve repl acement with bioprosthetic valve February 06, 2025 8:06am Cholangiocarcinoma February 09, 2025 2:12pm Encounter for insertion of t unneled central venous catheter (CVC) with port February 09, 2025 2:12pm Chief Complaint Admit Date SEVERE ANEMIA November 22, 2024 7:08pm SEVERE ANEMIA November 23, 2024 11:30am SEVERE ANEMIA November 23, 2024 1:44pm BLE SWELLING November 24, 2024 8:40am SEVERE ANEMIA November 24, 2024 10:28am SEVERE ANEMIA November 24, 2024 1:50pm SEVERE ANEMIA November 25, 2024 5:10pm SEVERE ANEMIA November 25, 2024 5:31pm SEVERE ANEMIA November 26, 2024 4:41pm Anemia December 05, 2024 8:35am ADENOCARCINOMA LIVER DIFFUSE RP ADENOPAT HY December 10, 2024 10:07am REVIEW PET December 29, 2024 10: 17am F/U AFTER [facility] (GET NOTE/PATH) January 9:06am CHEMO ED February 05, 2025 9:47am AFIB(ISCKRARUS) February 06, 2025 8:06am PORT PLACEMENT February 09, 2025 2:12pm ACUTE - FU ON A FIB/ONCOLOGY PT February 13, 2025 10:14am PI MODIFIER February 23, 2025 11:00 am LIVER BIOPSY February 26, 2025 7:09a m Reason for Visit Admit Date Cholangiocarcinoma November 22, 2024 7:08pm Acute anemia November 22, 2024 7:08pm Acute GI bleeding November 22, 2024 7:08pm Dyspnea on exertion November 22, 2024 7:08pm Fatigue November 22, 2024 7:08pm Lower extremity edema November 22 7:08pm Liver mass November 22, 2024 7:08pm Ulcerative colitis December 05, 2024 8:35am Liver mass December 05, 2024 8:35am Anemia December 05, 2024 8:35am Ascites December 10, 2024 10:0 7am Metastasis to liver of unknown origin [facility] 2024 10:07am Ulcerative colitis December 10, 2024 10:0 7am Ascites December 29, 2024 10: 17am Metastasis to liver of unknown origin [facility] 2024 10:17am Ulcerative colitis December 29, 2024 10: 17am Ascites February 03, 2025 9:0 6am Mediastinal lymphadenopathy February 03, 2025 9:06am Mesenteric lymphadenopathy February 03, 2 025 9:06am Metastasis to liver of unknown origin Ap ril 2024 9:06am Pelvic lymphadenopathy February 03, 2025 9:06am Retroperitoneal lymphadenopathy February 032024 9:06am Ulcerative colitis February 03, 2025 9:0 6am Ascites February 05, 2025 9:47am Encounter for education February 05, 2025 9: 47am Mediastinal lymphadenopathy February 05 9:47am Mesenteric lymphadenopathy February 05, 2025 9:47am Metastasis to liver of unknown origin Ma y 2024 9:47am Pelvic lymphadenopathy February 05, 2025 9:4 7am Retroperitoneal lymphadenopathy February 05, 2025 9:47am Atrial fibrillation February 06, 2025 8:06am Metastasis to liver of unknown origin Ma y 2024 8:06am History of aortic valve repl acement with bioprosthetic valve February 06, 2025 8:06am Cholangiocarcinoma February 09, 2025 2:12pm Encounter for insertion of t unneled central venous catheter (CVC) with port February 09, 2025 2:12pm Atrial fibrillation February 13, 2025 10:14a m Cardiac murmur February 13, 2025 10:14a m Cholangiocarcinoma February 13, 2025 10:14a m Routine adult health maintenance February 10:14am Iron deficiency anemia due to chronic bl ood loss February 13, 2025 10:14am Chief Complaint Admit Date SEVERE ANEMIA November 22, 2024 7:08pm SEVERE ANEMIA November 23, 2024 11:30am SEVERE ANEMIA November 23, 2024 1:44pm BLE SWELLING November 24, 2024 8:40am SEVERE ANEMIA November 24, 2024 10:28am SEVERE ANEMIA November 24, 2024 1:50pm SEVERE ANEMIA November 25, 2024 5:10pm SEVERE ANEMIA November 25, 2024 5:31pm SEVERE ANEMIA November 26, 2024 4:41pm Anemia December 05, 2024 8:35am ADENOCARCINOMA LIVER DIFFUSE RP ADENOPAT HY December 10, 2024 10:07am REVIEW PET December 29, 2024 10: 17am F/U AFTER [facility] (GET NOTE/PATH) January 9:06am CHEMO ED February 05, 2025 9:47am AFIB(ISCKRARUS) February 06, 2025 8:06am PORT PLACEMENT February 09, 2025 2:12pm ACUTE - FU ON A FIB/ONCOLOGY PT February 13, 2025 10:14am PI MODIFIER February 23, 2025 11:00 am LIVER BIOPSY February 26, 2025 7:09a m 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 and in March 04, 2025 3:40pm Additional Source Comments (unrecognized sect ion and content) No Status Records FoundNo Status Records FoundNo Status Records FoundNo Status Records Found INFORMATION SOURCE (unrecogn ized section and content) DATE CREATED AUTHOR 05/22/2021 [facility] ([place]) DATE CREATED AUTHOR AUTHOR'S ORGANIZ ATION 07/27/2024 [facility] DATE CREATED AUTHOR AUTHOR'S ORGANIZ ATION 02/14/2025 [facility] DATE CREATED AUTHOR AUTHOR'S ORGANIZ ATION 03/09/2025 [facility] Care Teams (unrecognized sec tion and content) Team Status: Active Member Role Status Dates No Primary Care Physician Family Provider Active No Primary Care Physician Primary Care Provider Active Team Status: Inactive Member Role Status Dates No Primary Care Physician Primary Care Provider Active Dr. Sal Jones MD Attending Provider, Referring Provider Active Coroner Forensic Technician Relationship Specialty Start Date End Date Trish Ortiz [facility] [address] [place] [address] Oncologist Medical Oncology 12/30/24 Maria M Handley, RN Registered Nurse 12/30/24 Team Status: Active Member Role Status Dates Johny SANTIAGO, PA Primary Care Provider Active Team Status: Inactive Member Role Status Dates Dr. Mark Isaacs DO Emergency Provider Active S tart: November 22, 2024 End: November 26, 2024 Dr. Dinah Lazaro DO Admit Provider Active Start : November 22, 2024 End: November 26, 2024 Dr. Dinah Lazaro DO Other Provider Active Start : November 22, 2024 End: November 26, 2024 Dr. Salena Matthews MD Attending Provider Active Start: November 22, 2024 End: November 26, 2024 Dr. John Love MD Other Provider Active Start: November 22, 2024 End: November 26, 2024 Dr. Joes Ramachandran DO Primary Care Provider Active Start: November 22, 2024 End: November 26, 2024 Team Status: Active Member Role Status Dates No Primary Care Physician Primary Care Provider Active Start: November 23, 2024 Dr. Mark Isaacs DO Emergency Provider Active S tart: November 23, 2024 Dr. Dinah Lazaro DO Admit Provider Active Start : November 23, 2024 Dr. Dinah Lazaro DO Other Provider Active Start : November 23, 2024 Dr. John Love MD Attending Provider Active Start: November 23, 2024 Dr. John Love MD Other Provider Active Start: November 23, 2024 Team Status: Active Member Role Status Dates No Primary Care Physician Primary Care Provider Active Start: November 23, 2024 Dr. Mark Isaacs DO Emergency Provider Active S tart: November 23, 2024 Dr. Dinah Lazaro DO Admit Provider Active Start : November 23, 2024 Dr. Dinah Lazaro DO Other Provider Active Start : November 23, 2024 Dr. John Love MD Referring Provider Active Start: November 23, 2024 Dr. John Love MD Other Provider Active Start: November 23, 2024 Dr. Kailash Gustafson DO Attending Provider Active Start: November 23, 2024 Team Status: Active Member Role Status Dates Dr. Edinson Kenney MD Attending Provider Active Start: November 24, 2024 Dr. Dinah Lazaro DO Referring Provider Active S tart: November 24, 2024 Team Status: Active Member Role Status Dates No Primary Care Physician Primary Care Provider Active Start: November 24, 2024 Dr. Mark Isaacs DO Emergency Provider Active S tart: November 24, 2024 Dr. Dinah Lazaro , Admit Provider Active Start : November 24, 2024 Dr. Dinah Lazaro , Other Provider Active Start : November 24, 2024 Dr. John Love MD Attending Provider Active Start: November 24, 2024 Dr. John Love MD Other Provider Active Start: November 24, 2024 Team Status: Active Member Role Status Dates No Primary Care Physician Primary Care Provider Active Start: November 24, 2024 Dr. Aniket Paniagua MD Attending Provider Active Start: November 24, 2024 Team Status: Active Member Role Status Dates No Primary Care Physician Primary Care Provider Active Start: November 24, 2024 Dr. Mark Isaacs DO Emergency Provider Active S tart: November 24, 2024 Dr. Dinah Lazaro , Admit Provider Active Start : November 24, 2024 Dr. Dinah Lazaro DO Other Provider Active Start : November 24, 2024 Dr. John Love MD Referring Provider Active Start: November 24, 2024 Dr. John Love MD Other Provider Active Start: November 24, 2024 Dr. Kailash Gustafson , Attending Provider Active Start: November 24, 2024 Team Status: Active Member Role Status Dates No Primary Care Physician Primary Care Provider Active Start: November 25, 2024 Dr. Mark Isaacs DO Emergency Provider Active S tart: November 25, 2024 Dr. Dinah Lazaro DO Admit Provider Active Start : November 25, 2024 Dr. Dinah Lazaro DO Other Provider Active Start : November 25, 2024 Dr. John Love MD Attending Provider Active Start: November 25, 2024 Dr. John Love MD Other Provider Active Start: November 25, 2024 Team Status: Active Member Role Status Dates No Primary Care Physician Primary Care Provider Active Start: November 25, 2024 Dr. Mark Isaacs DO Emergency Provider Active S tart: November 25, 2024 Dr. Dinah Lazaro DO Admit Provider Active Start : November 25, 2024 Dr. Dinah Lazaro DO Other Provider Active Start : November 25, 2024 Dr. John Love MD Referring Provider Active Start: November 25, 2024 Dr. John Love MD Other Provider Active Start: November 25, 2024 Dr. Kailash Gustafson DO Attending Provider Active Start: November 25, 2024 Team Status: Active Member Role Status Dates Dr. Mark Isaacs DO Emergency Provider Active S tart: November 26, 2024 Dr. Dinah Lazaro DO Admit Provider Active Start : November 26, 2024 Dr. Dinah Lazaro DO Other Provider Active Start : November 26, 2024 Dr. Salena Matthews MD Attending Provider Active Start: November 26, 2024 Dr. Salena Matthews MD Other Provider Active St art: November 26, 2024 Dr. John Love MD Other Provider Active Start: November 26, 2024 Dr. Jose Ramachandran DO Primary Care Provider Active Start: November 26, 2024 Team Status: Inactive Member Role Status Dates Dr. Jose Ramachandran DO Primary Care Provider Active Start: December 05, 2024 End: December 05, 2024 Dr. Jose Ramachandran DO Referring Provider Active S tart: December 05, 2024 End: December 05, 2024 MARIA LUISA Handy Attending Provider Active S tart: December 05, 2024 End: December 05, 2024 Team Status: Inactive Member Role Status Dates Dr. Jose Ramachandran DO Primary Care Provider Active Start: December 10, 2024 End: December 10, 2024 Dr. Trish Ortiz MD Attending Provider Active Start: December 10, 2024 End: December 10, 2024 MARIA LUISA Handy Referring Provider Active S tart: December 10, 2024 End: December 10, 2024 Team Status: Inactive Member Role Status Dates Dr. Jose Ramachandran DO Primary Care Provider Active Start: December 29, 2024 End: December 29, 2024 Dr. Jose Ramachandran DO Referring Provider Active S tart: December 29, 2024 End: December 29, 2024 Dr. Trish Ortiz MD Attending Provider Active Start: December 29, 2024 End: December 29, 2024 Team Status: Inactive Member Role Status Dates Dr. Jose Ramachandran DO Primary Care Provider Active Start: February 03, 2025 End: February 03, 2025 Dr. Jose Ramachandran DO Referring Provider Active S tart: February 03, 2025 End: February 03, 2025 Dr. Trish Ortiz MD Attending Provider Active Start: February 03, 2025 End: February 03, 2025 Team Status: Inactive Member Role Status Dates Dr. Jose Ramachandran DO Primary Care Provider Active Start: February 05, 2025 End: February 05, 2025 Dr. Jose Ramachandran DO Referring Provider Active S tart: February 05, 2025 End: February 05, 2025 Geeta Rodgers UPPER LEATHER SORTER, UPPER LEATHER SORTER-C Attending Provider Active Start: February 05, 2025 End: February 05, 2025 Team Status: Inactive Member Role Status Dates Dr. Jose Ramachandran DO Primary Care Provider Active Start: February 06, 2025 End: February 06, 2025 Dr. Jose Ramachandran DO Referring Provider Active S tart: February 06, 2025 End: February 06, 2025 Dr. Mark Morales MD Attending Provider Active S tart: February 06, 2025 End: February 06, 2025 Team Status: Active Member Role Status Dates Dr. Jose Ramachandran DO Primary Care Provider Active Start: February 09, 2025 Dr. Trish Ortiz MD Attending Provider Active Start: February 09, 2025 Dr. Trish Ortiz MD Referring Provider Active Start: February 09, 2025 Team Status: Inactive Member Role Status Dates Dr. Jose Ramachandran DO Referring Provider Active S tart: February 09, 2025 End: February 09, 2025 Dr. Maya Live MD Attending Provider Active Start: February 09, 2025 End: February 09, 2025 JACK Sinha Primary Care Provider Active Start: February 09, 2025 End: February 09, 2025 Team Status: Inactive Member Role Status Dates JACK Sinha Primary Care Provider Active Start: February 11, 2025 End: February 11, 2025 Dr. Maya Live MD Attending Provider Active Start: February 11, 2025 End: February 11, 2025 Dr. Maya Live MD Referring Provider Active Start: February 11, 2025 End: February 11, 2025 Team Status: Active Member Role Status Dates Johny Wayt PA, PA Primary Care Provider Active Start: February 11, 2025 Dr. Maya Live MD Attending Provider Active Start: February 11, 2025 Dr. Maya Live MD Referring Provider Active Start: February 11, 2025 Dr. Maya Live MD Other Provider Active S tart: February 11, 2025 Team Status: Inactive Member Role Status Dates Dr. Jose Ramachandran DO Referring Provider Active S tart: February 13, 2025 End: February 13, 2025 Johny SANTIAGO PA Primary Care Provider Active Start: February 13, 2025 End: February 13, 2025 Johny SANTIAGO PA Attending Provider Active St art: February 13, 2025 End: February 13, 2025 Team Status: Active Member Role Status Dates Dr. Jose Ramachandran DO Primary Care Provider Active Start: February 23, 2025 Dr. Trish Ortiz MD Attending Provider Active Start: February 23, 2025 Dr. Trish Ortiz MD Referring Provider Active Start: February 23, 2025 Team Status: Inactive Member Role Status Dates Johny SANTIAGO, PA Primary Care Provider Active Start: February 26, 2025 End: February 26, 2025 Dr. Trish Ortiz MD Attending Provider Active Start: February 26, 2025 End: February 26, 2025 Dr. Trish Ortiz MD Referring Provider Active Start: February 26, 2025 End: February 26, 2025 Team Status: Inactive Member Role Status Dates Dr. Trish Ortiz MD Attending Provider Active Start: March 04, 2025 End: March 04, 2025 Dr. Trish Ortiz MD Referring Provider Active Start: March 04, 2025 End: March 04, 2025 Johny SANTIAGO, PA Primary Care Provider Active Start: March 04, 2025 End: March 04, 2025 Goals (unrecognized section and content) Goals may be documented in a n alternate section Source Comments (unrecognize d section and content) In the event this informatio n is protected by the Federal Confidentiality of Alcohol and Drug Abuse Patient Records regulations: The Federal rules restrict any use of the information to criminally investigate or prosecute any alcohol or drug abuse patient.[facility] Reason for Visit (unrecogniz ed section and content) Reason Comments Insect Bite Widespread, unsure i f bed bug bites Specialty Diagnoses / Procedures Referred By Cary gibbons Referred To Contact [facility] Diagnoses insect bites and rash Procedures EST SAME DAY [facility] [address] [place] [address] Referral ID Status Reason Start Date Expiration Date Visits Requested Visits Authorized [id number] New Request Financial Clearance Required - Self Pay 4 10/23/2024 1 1 Scheduled Active and Recently Administ ered Medications (unrecognized section and content) Medication Order 01/18/2025 01/19/2025 01/20/2025 Magnesium sulfate 1 g in dextrose 5% 100 mL premix IVPB 1 g, Intravenous, Administer over 60 Minutes, ONCE, 1 dose, On Sun01/20/25 at 1515, EXCLUDE patients less than 50kg, Scr greater than or equal to 2, CrCl less than 30ml/min, ESRD, renal replacement therapy, or history of renal transplant. If patient has a diet, is receiving tube feeds or is receiving other medications via tube, enteral route is preferred unless magnesium level is less than or equal to 1.3 mg/dL. If patient has high volume output (diarrhea, ileostomy, colostomy, fistula, NG tube) greater than 1L in last 24h or has no enteral access, utilize IV replacement. If magnesium level is 1.4-1.9 mg/dL and unable to take enteral dose due to high volume output; administer 2 g (1 g every 1 hour x 2 doses)., Pre-op/Pre-Proc 1515 (Canceled Entry - Provider: System Discharge - Comment: Automatically canceled at discontinue of medication order) Continuous Medication Order 01/18/2025 01/19/2025 01/20/2025 Sodium chloride 0.9% IV solution Intravenous, at 50 mL/hr, CONTINUOUS, Starting on Sun01/20/25 at 1200, Until Sun01/20/25 at 1957, Pre-op/Pre-Proc 1200 (Canceled Entry - Provider: System Discharge - Comment: Automatically canceled at discontinue of medication order) PRN Medication Order 01/18/2025 01/19/2025 01/20/2025 Acetaminophen (TYLENOL) tablet 650 mg 650 mg, Oral, EVERY 4 HOURS NEEDED, Starting on Sun01/20/25 at 1641, Until Sun01/20/25 at 1957, Mild Pain, Maximum dose of acetaminophen is 4000 mg from all sources in 24 hours., Post-op/Post-Proc HYDROmorphone (DILAUDID) injection 0.5 mg(Linked Group 1) 0.5 mg, Intravenous, EVERY 3 HOURS NEEDED, Starting on Sun01/20/25 at 1641, Until Sun01/20/25 at 1957, Severe Pain, Use as initial dose. Higher dose may be administered if lower dose was previously documented as ineffective and did not result in adverse effects (RR<10, decrease in level of consciousness)., Post-op/Post-Proc HYDROmorphone (DILAUDID) injection 1 mg(Linked Group 1) 1 mg, Intravenous, EVERY 3 HOURS NEEDED, Starting on Sun01/20/25 at 1641, Until Sun01/20/25 at 1957, Severe Pain, Higher dose may be administered if lower dose was previously documented as ineffective and did not result in adverse effects (RR<10, decrease in level of consciousness). Decrease back to lower dose if patient has adverse effects, or no PRN used in previous 12 hours., Post-op/Post-Proc Ondansetron 4mg/2ml (ZOFRAN) injection 4 mg 4 mg, Intravenous, EVERY 4 HOURS NEEDED, Starting on Sun01/20/25 at 1641, Until Sun01/20/25 at 1957, Nausea / Vomiting, 1st Line Nausea / Vomiting, Post-op/Post-Proc oxyCODONE-acetaminophen (PERCOCET) 5-325 MG per tablet 1 tablet(Linked Group 2) 1 tablet, Oral, EVERY 4 HOURS NEEDED, Starting on Sun01/20/25 at 1641, Until Sun01/20/25 at 1957, Moderate Pain, Use as initial dose. Higher dose may be administered if lower dose was previously documented as ineffective and did not result in adverse effects (RR<10, decrease in level of consciousness)., Post-op/Post-Proc oxyCODONE-acetaminophen (PERCOCET) 5-325 MG per tablet 2 tablet(Linked Group 2) 2 tablet, Oral, EVERY 4 HOURS NEEDED, Starting on Sun01/20/25 at 1641, Until Sun01/20/25 at 1957, Moderate Pain, Higher dose may be administered if lower dose was previously documented as ineffective and did not result in adverse effects (RR<10, decrease in level of consciousness). Decrease back to lower dose if patient has adverse effects, or no PRN used in previous 12 hours., Post-op/Post-Proc Prochlorperazine (COMPAZINE) injection 10 mg 10 mg, Intravenous, EVERY 6 HOURS NEEDED, Starting on Sun01/20/25 at 1641, Until Sun01/20/25 at 1957, Nausea / Vomiting, 2nd Line Nausea / Vomiting, For IV route: dilute dose with 10mL normal saline and give by slow IV push at a rate of 5mg/min. Maximum of 40mg/day., Post-op/Post-Proc Linked Groups Order Group 1: HYDROmorphone (DILAUDID) injection 0.5 mgJump to med 0.5 mg, Intravenous, EVERY 3 HOURS NEEDED, Starting on Sun01/20/25 at 1641, Until Sun01/20/25 at 1957, Severe Pain, Use as initial dose. Higher dose may be administered if lower dose was previously documented as ineffective and did not result in adverse effects (RR<10, decrease in level of consciousness)., Post-op/Post-Proc Or HYDROmorphone (DILAUDID) injection 1 mgJump to med 1 mg, Intravenous, EVERY 3 HOURS NEEDED, Starting on Sun01/20/25 at 164, Until Sun01/20/25 at 1957, Severe Pain, Higher dose may be administered if lower dose was previously documented as ineffective and did not result in adverse effects (RR<10, decrease in level of consciousness). Decrease back to lower dose if patient has adverse effects, or no PRN used in previous 12 hours., Post-op/Post-Proc Group 2: oxyCODONE-acetaminophen (PERCOCET) 5-325 MG per tablet 1 tabletJump to med 1 tablet, Oral, EVERY 4 HOURS NEEDED, Starting on Sun01/20/25 at 1641, Until Sun01/20/25 at 1957, Moderate Pain, Use as initial dose. Higher dose may be administered if lower dose was previously documented as ineffective and did not result in adverse effects (RR<10, decrease in level of consciousness)., Post-op/Post-Proc Or oxyCODONE-acetaminophen (PERCOCET) 5-325 MG per tablet 2 tabletJump to med 2 tablet, Oral, EVERY 4 HOURS NEEDED, Starting on Sun01/20/25 at 1641, Until Sun01/20/25 at 1957, Moderate Pain, Higher dose may be administered if lower dose was previously documented as ineffective and did not result in adverse effects (RR<10, decrease in level of consciousness). Decrease back to lower dose if patient has adverse effects, or no PRN used in previous 12 hours., Post-op/Post-Proc FOR RECORDS PERTAINING TO PATIENTS WHO ARE OR HAVE BEEN ENROLLED IN A CHEMICAL DEPENDENCY/SUBSTANCEABUSE PROGRAM, SOME INFORMATION MAY BE OMITTED. This clinical summary was aggregated from multiple sources. Caution should be exercised in using it in the provision of clinical care. This summary normalizes information from multiple sources, and as a consequence, information in this document may materially change the coding, format and clinical context of patient data. In addition, data may be omitted in some cases. CLINICAL DECISIONS SHOULD BE BASED ON THE PRIMARY CLINICAL RECORDS. [employer] [facility]. provides no warranty or guarantee of the accuracy or completeness of information in this document.
--- NOTE | 2025-03-10 02:42 | EDS_ITS ---
HPI History of Present Illness Chief Complaint: General Illness [facility] Medical History Wears glasses Cancer Anemia Easy bruising Excessive bleeding Essential tremor History of GI bleed Gastric reflux Non-smoker Shortness of breath on exertion Colitis History of edema History of stress test History of echocardiogram Cardiology follow-up encounter Encounter for education Cardiac murmur Pelvic lymphadenopathy Mesenteric lymphadenopathy Retroperitoneal lymphadenopathy Mediastinal lymphadenopathy Iron deficiency anemia due to chronic blood loss Metastasis to liver of unknown origin Ulcerative colitis Ascites Cholangiocarcinoma Atrial fibrillation HUANG (dyspnea on exertion) Nonrheumatic aortic (valve) stenosis Bicuspid aortic valve Acute kidney injury Chest pain, unspecified Asthma Churg-Geronimo syndrome Home Medications ?Medication ?Instructions ?Recorded ?Last Taken ?Type guaifenesin 1,200 mg tablet, 1,200 mg PO DAILY 5 11/22/24 History extended release 12 hr (Mucinex) furosemide 20 mg tablet (Lasix) 20 mg PO DAILY #30 tab s 11/26/24 Unknown Rx pantoprazole 40 mg tablet,delayed 40 mg PO DAILY #30 t abs 11/26/24 02/11/25 06:00 Rx release cholestyramine-aspartame 4 gram 4 g PO TID #239.4 gram s 12/05/24 Unknown Rx oral powder (Cholestyramine Light) metoprolol succinate 25 mg 25 mg PO QDAY #90 tabs 12/0202/11/25 06:00 Rx tablet,extended release 24 hr (Toprol XL) loperamide 2 mg capsule (Imodium 2 mg PO QDAY 02/09/25 Unknown History A-D) Allergy/AdvReac Type Severity Reaction Status Date / Time acetaminophen Allergy Mild Itching Verified 03/10/25 01:33 Penicillins (PCN) Allergy PT UNSURE Verified 03/10/25 01:33 OF REACTION Family History Other Heart disease Surgical History History of esophagogastroduodenoscopy (EGD) Hx of surgical procedure S/P proctocolectomy (~1993) Hx laparoscopic cholecystectomy History of right and left heart catheterization (LHC) (~07/12/01) History of aortic valve replacement with bioprosthetic valve Social History Smoking Status: Never smoker alcohol intake: current alcohol intake frequency: holidays/special occasions only details: occasional substance use type: does not use EXAM Physical Exam Const Vital Signs: 03/10/25 01:33 03/10/25 01:33 03/10/25 03:33 Temperature 98.6 F Temperature Source Oral Pulse Rate 103 H 96 Respiratory Rate 21 H 20 H Respiratory Effort Normal Non-Labored Respiratory Pattern Normal Blood Pressure 135/72 H 107/57 L Blood Pressure Mean 93 73 Pulse Ox 100 100 Oxygen Delivery Method Room Air Room Air [facility] Narrative Medical decision making narrative: HISTORY OF PRESENT ILLNESS: Chief complaint: Runny nose, epistaxis 55-year-old male presents with primary concern of epistaxis. Notes today he is felt diffuse muscle aches, felt fatigued. Notes he had a nosebleed prior to arrival. This concerned him as he was passing clots. He notes bleeding has since ceased. He denies sick contacts. Denies shortness of breath. Does note a dry cough. Denies fever. Denies falls or other trauma. Also notes lower back pain. Patient denies any saddle anesthesia, urinary retention, bowel or bladder incontinence, lower extremity weakness, fever or IV drug use, no recent spinal manipulation or surgery, no recent urinary catheterization. REVIEW OF SYSTEMS: Pertinent positives: Runny nose, epistaxis, back pain Pertinent negatives: Syncope, focal weakness PHYSICAL EXAM: Nursing triage notes reviewed, Vital signs reviewed Constitutional: please see [facility] HENT: MMM, no epistaxis Eyes: Pupils equal round and reactive to light, Extraocular muscles intact Neck: No stridor, no JVD, full neck ROM Lungs: Clear to auscultation, No wheezing or rales. No increased work of breathing, no conversational dyspnea, no accessory muscle use, no nasal flaring. No respiratory distress noted Heart: Regular rate and rhythm, No murmurs, No rubs and No gallops, 2+ distal pulses (radial, femoral, posterior tibial) in all extremities Abdomen: Soft, there is no tenderness, rigidity, rebound or guarding, no obvious peritoneal signs, no palpable pulsatile abdominal masses, no auscultated abdominal bruit : No CVAT Extremities: No edema Back: No rash. No step-offs deformities. No signs of trauma. Neuro: Intact sensation L1-S1 dermatomal distributions. Intact 5/5 strength in hip flexion (T12-L3). Knee extension (L2-L4). Ankle dorsiflexion (L4-L5). Ankle plantar flexion (S1). Great toe extension (L5). 2+ patellar and Achilles DTRs. Skin: No rash or lesions noted MEDICAL DECISION MAKING: Chief Complaint: please see HPI External records reviewed: Reviewed prior imaging studies Factors affecting care: Ulcerative colitis, atrial fibrillation amongst other Social determinants of health: none History obtained from others: none Consults: none [facility] Narrative: The patient was initially hemodynamically stable, afebrile and nontoxic- appearing. Saturating 100% on room air I considered the following differential diagnosis: Pneumonia, severe anemia, I obtained labs images to further elucidate etiology of patient's complaint ALL IMAGES (IF OBTAINED) HAVE BEEN PERSONALLY REVIEWED AND INTERPRETED BY MYSELF. I have personally reviewed the patient's chest x-ray. Chest x-ray is unremarkable for pulmonary edema, pneumothorax, pneumonia or focal cardiopulmonary abnormality. CBC with leukocytosis suggestive of systemic inflammation, stable anemia, no thrombocytopenia BMP without evidence of significant electrolyte abnormalities, no anion gap, no acute kidney injury. COVID/RSV/flu negative The synthesis of the patient's history, physical exam, labs images suggest likely viral URI. No clinical/lab or imaging evidence of an acute life or limb threatening etiology. The patient is appropriate for discharge home. The patient and/or family, caregivers express understanding. The patient and/or family, caregivers agrees with the plan. Shared decision making: I will have a discussion with the patient and or visitors regarding risk/benefits of further testing or admission. They will be made aware of of the risk/benefits inherent in this decision they will be given the opportunity to voice understanding. Total critical care time today provided was at least 0 minutes. This excludes separately billable procedures. Critical care time (if documented) is secondary to the patient having high probability of clinically significant/life threatening deterioration in the patient's condition which required my urgent intervention. Impression: 1. Epistaxis (resolved) 2. Viral syndrome Dispo: Discharge home This note was generated with [employer] dictation software. It may contain incorrect words, spelling, and punctuation that were not noted in review of the chart prior to signing. Lab Data Labs: Laboratory Results - last 24 hr 03/10/25 03:17 WBC 11.9 H RBC 3.77 L Hgb 8.3 L Hct 28.3 L MCV 75.1 L MCH 22.0 L MCHC 29.3 L RDW Std Deviation 55.9 H RDW Coeff of Paulo 20.8 H Plt Count 321 MPV 9.6 Immature Gran % (Auto) 0.300 Neut % (Auto) 74.9 H Lymph % (Auto) 9.9 L [place] % (Auto) 10.3 H Eos % (Auto) 4.0 Baso % (Auto) 0.6 Absolute Neuts (auto) 8.9 H Absolute Lymphs (auto) 1.18 Nucleated RBC % 0 Anisocytosis 1+ Sodium 136 Potassium 4.2 Chloride 105 Carbon Dioxide 22.2 Anion Gap 9 BUN 25 H Creatinine 0.77 Estim Creat Clear Calc 129.55 Est GFR (MDRD) Non-Af 106 BUN/Creatinine Ratio 32.8 H Glucose 94 Calcium 8.5 Radiography Diagnostic Testing: Clinical Impression(s) from Imaging Studies Chest X-Ray 03/10/25 03:32 IMPRESSION: Right Port-A-Cath is in good position with its tip in the superior vena cava. Unremarkable median sternotomy wires. Increased central pulmonary venous congestion. Interval appearance of bilateral basilar atelectatic pulmonary changes. Changes from prior metallic valve replacement. There is no demonstrated pleural abnormality. Enlarged cardiac silhouette. Suspected mediastinal lymphadenopathy. Reading Location: [place] [address] Discharge Plan Triage Chief Complaint: General Illness ED Provider: Aryan Ramirez Dx/Rx/DC Orders Prescriptions: No Action Cholestyramine Light 4 gram powder 4 g PO TID Qty: 239.4 2RF Rx Instructions: administer w/meal; avoid other meds within 1hr before or 4-6hr after dose loperamide [Imodium A-D] 2 mg capsule 2 mg PO QDAY metoprolol succinate [Toprol XL] 25 mg tablet extended release 24 hr 25 mg PO QDAY Qty: 90 3RF guaifenesin [Mucinex] 1,200 mg tablet extended release 12hr 1,200 mg PO DAILY furosemide [Lasix] 20 mg tablet 20 mg PO DAILY Qty: 30 2RF pantoprazole 40 mg tablet,delayed release (DR/EC) 40 mg PO DAILY Qty: 30 2RF Primary Care Provider: Johny Rodríguez Referrals: Johny Rodríguez, PA [Primary Care Provider] - Print Language: Swedish
[2025-03-10 03:30] LABS: Absolute Lymphocyte Count 1.18 X10^3/uL (0.83-4.51); Absolute Neutrophil Count 8.9 X10^3/uL (2.0-7.7); Basophil# 0.07 X10^3/uL; Basophil% 0.6 % (0-1); Eosinophil# 0.47 X10^3/uL; Hematocrit 28.3 % (40-54); Hemoglobin 8.3 g/dL (13.0-16.5); Lymphocyte # 1.18 X10^3/ul (0.83-4.51); Lymphocyte % 9.9 % (19-41); Mean Corp Hgb Conc 29.3 g/dL (32-36); Mean Corpuscular Volume 75.1 fL (80-94); Mean Platelet Vol. 9.6 fl (6.2-12.0); Monocyte# 1.22 X10^3/uL; Monocyte% 10.3 % (0-10); NRBC Flagged by Analyzer 0 % (0-5); Neutrophil # 8.92 X10^3/uL (2.7-7.7); Neutrophil % 74.9 % (47-70); POSITIVE MORPHOLOGY YES; Platelet Count 321 K/mm3 (150-450); RBC Distribution Width CV 20.8 % (11.6-14.6); RBC Distribution Width SD 55.9 fl (35.1-43.9); Red Blood Count 3.77 M/mm3 (4.6-6.2); White Blood Count 11.9 K/mm3 (4.4-11.0)
--- NOTE | 2025-03-10 03:32 | RAD_ITS ---
PROCEDURE: CHEST PA AND LATERAL 03/10/2025 REASON FOR EXAM: COUGH TECHNIQUE: Frontal and lateral views of the chest. COMPARISON: CT scan on 03/04/2025. FINDINGS: Right Port-A-Cath is in good position with its tip in the superior vena cava. Unremarkable median sternotomy wires. Increased central pulmonary venous congestion. Interval appearance of bilateral basilar atelectatic pulmonary changes. Changes from prior metallic valve replacement. There is no demonstrated pleural abnormality. Enlarged cardiac silhouette. Normal visualized pulmonary arteries. Atheromatous plaques of the visualized aortic arch and descending thoracic aorta. Diffuse spondylosis of the visualized thoracic spine. Normal visualized ribs, clavicles. Degenerative joint disease. There is no demonstrated abnormality of the visualized soft tissue structures of the upper abdomen. RAD/Chest PA and Lateral IMPRESSION: Right Port-A-Cath is in good position with its tip in the superior vena cava. Unremarkable median sternotomy wires. Increased central pulmonary venous congestion. Interval appearance of bilateral basilar atelectatic pulmonary changes. Changes from prior metallic valve replacement. There is no demonstrated pleural abnormality. Enlarged cardiac silhouette. Suspected mediastinal lymphadenopathy. Reading [facility]
[2025-03-10 03:33] VITALS: BP 107/57; PULSE 96; RESP 20; O2SAT 100
[2025-03-10 03:49] LABS: Differential Indicated SCAN CRITERIA MET
[2025-03-10 04:17] LABS: Anisocytosis 1+
[2025-03-10 04:18] LABS: Anion Gap 9 (5-15); BUN 25 mg/dL (4-19); BUN/Creat Ratio 32.8 RATIO (10-20); Calcium,Total 8.5 mg/dL (7.6-11.0); Carbon Dioxide 22.2 mmol/L (21.0-32.0); Chloride 105 mmol/L (98-108); Creatinine, Serum 0.77 mg/dL (0.70-1.20); EST Glomerular Filtration Rate 106 (>60); Estimated Creatinine Clearance 129.55 ml/min (50-250); Glucose 94 mg/dL (70-99); Potassium 4.2 mmol/L (3.3-5.1); Sodium Level 136 mmol/L (133-145)
[2025-03-10 05:22] VITALS: BP 104/63; PULSE 104; RESP 22; TEMP 37.2; O2SAT 99
== END 2025-03-10 05:23 | disposition home or self-care (01) ==
PROVIDERS: Emergency Provider Emergency Medicine; PCP Physician Assistant; Visit Provider Emergency Medicine
DX: B34.9 Viral infection, unspecified (principal); K51.90 Ulcerative colitis, unspecified, without complications; J45.909 Unspecified asthma, uncomplicated; K21.9 Gastro-esophageal reflux disease without esophagitis; I10 Essential (primary) hypertension; Z79.899 Other long term (current) drug therapy
CPT/HCPCS: 71046; 80048; 85025; 87631; 99282; A4216

== ENCOUNTER 2025-04-30 20:18 | Emergency (ER) | payer MEDICAID, SELFPAY ==
[2025-04-30 20:44] VITALS: TEMP 36.4
--- NOTE | 2025-04-30 21:01 | ED.RN ---
Taty Rodgers LEARNING SUPPORT SERVICES DIRECTOR made aware pt's port/ chemo therapy being dislodged at home and leaked on pt's skin and clothing. Advised to place pump in two biohazard bags,have the pt shower at home,wash clothes and any linen at home in hot water separate from other linen. No need to hazard clean unless pool of chemo--per Taty.
--- NOTE | 2025-04-30 21:17 | EX.ED.DYSGE1 ---
HPI History of Present Illness Chief Complaint: Other, Pain/Inj Narrative Narrative: 55-year-old male past medical history of liver carcinoma is receiving continuous infusion of chemotherapy into a Mediport on his right chest. He has been receiving this continuous infusion and is supposed to be done tomorrow morning at 11 AM. He had some of the tubing hooked to his pants, and when he went to use the restroom, lowered his pants, and the port access was ripped from the Mediport. Some of the infusion contents spilled onto the skin on his right chest. The infusion continued to run. He was unsure as to what to do so he presents to the emergency department with his port to be accessed and having some of the infusion still spilled on his chest and with the lot of the box running. There is no way for him to turn off the infusion. [facility] Medical History Wears glasses Cancer Anemia Easy bruising Excessive bleeding Essential tremor History of GI bleed Gastric reflux Non-smoker Shortness of breath on exertion Colitis History of edema History of stress test History of echocardiogram Cardiology follow-up encounter Encounter for education Cardiac murmur Pelvic lymphadenopathy Mesenteric lymphadenopathy Retroperitoneal lymphadenopathy Mediastinal lymphadenopathy Iron deficiency anemia due to chronic blood loss Metastasis to liver of unknown origin Ulcerative colitis Ascites Atrial fibrillation HUANG (dyspnea on exertion) Nonrheumatic aortic (valve) stenosis Bicuspid aortic valve Acute kidney injury Chest pain, unspecified Asthma Churg-Geronimo syndrome Home Medications Medication Instructions Recorded Last Taken Type guaifenesin 1,200 mg tablet, 1,200 mg PO DAILY 11/22/24 11/22/24 History extended release 12 hr (Mucinex) pantoprazole 40 mg tablet,delayed 40 mg PO DAILY #30 tabs 11/26/24 02/11/25 06:00 Rx release cholestyramine-aspartame 4 gram 4 g PO TID #239.4 grams 12/05/24 Unknown Rx oral powder (Cholestyramine Light) metoprolol succinate 25 mg 25 mg PO QDAY #90 tabs 02/06/25 02/11/25 06:00 Rx tablet,extended release 24 hr (Toprol XL) loperamide 2 mg capsule (Imodium 2 mg PO QDAY 02/09/25 Unknown History A-D) lidocaine-prilocaine 2.5 %-2.5 % 1 applic topical ONCE PRN port 03/18/25 Unknown Rx topical cream access 30 days #30 grams ondansetron 8 mg disintegrating 8 mg PO Q8H PRN nausea and 03/18/25 Unknown Rx tablet vomiting #30 tabs prochlorperazine maleate 10 mg 10 mg PO Q6H PRN nausea and 03/18/25 Unknown Rx tablet vomiting #30 tabs Allergy/AdvReac Type Severity Reaction Status Date / Time acetaminophen Allergy Mild Itching Verified 04/29/25 09:29 Penicillins (PCN) Allergy PT UNSURE Verified 04/29/25 09:29 OF REACTION Family History Other Heart disease Surgical History History of esophagogastroduodenoscopy (EGD) Hx of surgical procedure S/P proctocolectomy (~1993) Hx laparoscopic cholecystectomy History of right and left heart catheterization (LHC) (~07/12/01) History of aortic valve replacement with bioprosthetic valve Social History household members: spouse housing: house Smoking Status: Never smoker alcohol intake: current alcohol intake frequency: holidays/special occasions only details: occasional substance use type: does not use ROS ROS ED ROS Narrative Review of systems positive for contact with infusion contents of chemotherapy on right chest. Mediport on right chest D accessed accidentally. Denies other problems. EXAM Physical Exam Narrative Exam Narrative: Afebrile. Vital signs noted. Nontoxic-appearing. Inspection of the Mediport on the right chest wall shows no evidence of active bleeding. No erythema to skin. Cardiovascular examination regular rate and rhythm. Const Vital Signs: 04/30/25 20:44 04/30/25 20:44 Temperature 97.6 F L Temperature Source Oral Respiratory Effort Normal Non-Labored Respiratory Pattern Normal MDM MDM MDM Narrative Medical decision making narrative: I do not feel differential diagnosis is applicable in this. His port has been deaccessed. There was chemotherapy infusion liquid contacted on his skin. RN has contacted health advisor as well as oncology pharmacist. As the patient has been receiving an infusion intravenously, it is okay for him to contact his own skin and use soap and warm water to cleanse the area. Additionally, they state that the machine should be clamped, and he should report to the infusion center first thing tomorrow morning so they can calculate how much chemotherapy is left and how much more he will require. At this point in time, I do not feel he requires any laboratory work or imaging. RN was told not to reaccessed his port and assembly supervisor his infusion again. Disposition is discharged home in stable condition. Discharge Plan Triage Chief Complaint: Other, Pain/Inj ED Provider: Gabo Whelan Dx/Rx/DC Orders Clinical Impression: Complication of infusion, Instrumnt fail-infusion Instructions: Cancer Inject Site Reaction Prescriptions: No Action Cholestyramine Light 4 gram powder 4 g PO TID Qty: 239.4 2RF Rx Instructions: administer w/meal; avoid other meds within 1hr before or 4-6hr after dose loperamide [Imodium A-D] 2 mg capsule 2 mg PO QDAY metoprolol succinate [Toprol XL] 25 mg tablet extended release 24 hr 25 mg PO QDAY Qty: 90 3RF guaifenesin [Mucinex] 1,200 mg tablet extended release 12hr 1,200 mg PO DAILY pantoprazole 40 mg tablet,delayed release (DR/EC) 40 mg PO DAILY Qty: 30 2RF lidocaine-prilocaine 2.5-2.5 % cream 1 applic topical ONCE PRN (Reason: port access) 30 Days Qty: 30 2RF ondansetron 8 mg tablet,disintegrating 8 mg PO Q8H PRN (Reason: nausea and vomiting) Qty: 30 2RF prochlorperazine maleate 10 mg tablet 10 mg PO Q6H PRN (Reason: nausea and vomiting) Qty: 30 2RF Primary Care Provider: Johny Rodríguez Referrals: Johny Rodríguez PA [Primary Care Provider] - Activity Restrictions/Additional Instructions: Report directly to the infusion center first thing tomorrow morning with your infusion instrument/machine. They will need to figure out how much chemotherapy you still require. Wash the area with warm water and soap where you had the chemotherapy contact your skin. Print Language: Upper Sorbian Disposition Disposition: Home, Self Care
[2025-04-30 21:45] VITALS: TEMP 36.4
== END 2025-04-30 21:46 | disposition home or self-care (01) ==
PROVIDERS: Emergency Provider Emergency Medicine; PCP Physician Assistant; Visit Provider Emergency Medicine
DX: T80.89XA Other complications following infusion, transfusion and therapeutic injection, initial encounter (principal); C22.9 Malignant neoplasm of liver, not specified as primary or secondary; X58.XXXA Exposure to other specified factors, initial encounter
CPT/HCPCS: 99282

== ENCOUNTER → 2025-06-03 | Outpatient (CLI) | payer MEDICAID, SELFPAY ==
--- NOTE | 2025-06-03 07:09 | CT_ITS ---
PROCEDURE: CT CHEST, ABD, PEL W/CONTRAST 06/03/2025 REASON FOR EXAM: IV/PO; METASTATIC CA UNKNOWN PRIMARY. History of ulcerative colitis. Status post proctocolectomy with J-pouch. TECHNIQUE: Chest, abdomen and pelvis CT with intravenous contrast. Coronal and Sagittal reconstruction series were provided. One or more dose reduction techniques were used (e.g., Automated exposure control, adjustment of the mA and/or kV according to patient size, use of iterative reconstruction technique. PATIENT PREPARATION: Per protocol ORAL CONTRAST: Yes CONTRAST: Isovue-300 VOLUME: 98mL RADIATION DOSE SUMMARY: CTDlvol: 57.56 mGy DLP: 1952.57 mGycm COMPARISON: CT chest abdomen and pelvis, 03/04/2025. FINDINGS: CT CHEST: Lower neck:The thyroid gland is normal. There are reactive supraclavicular and subpectoral lymph nodes. Mediastinum:There is diffuse mediastinal lymphadenopathy. Appears mildly improved since the prior exam. Index node, a precarinal lymph node, measures 2.7 x 1.3 cm (was 3.2 x 1.6 cm). Heart and Vasculature:The heart is enlarged. There is no pericardial effusion. Status post aortic valve replacement. There is no calcific vascular disease of the coronary arteries evident. There is enlargement of the pulmonary arterial tree with the main pulmonary artery measuring 3.9 cm in diameter consistent with pulmonary arterial hypertension. Lungs, airways and pleura: There are no pulmonary nodules or masses. There is no significant interstitial or alveolar lung disease. There are no pleural effusions. Esophagus:Normal. Chest wall:There are few reactive axillary lymph nodes bilaterally. There is a chemotherapy port in the right upper chest wall with the tip in the superior vena cava via the right internal jugular vein. Thoracic spine is unremarkable. There is pectus excavatum deformity of the chest. Status post median sternotomy. CT ABDOMEN/PELVIS: Liver: There is again noted a mass in the left hepatic lobe measuring 16.5 x 8.1 x 7.1 cm. There is hepatomegaly. There is evidence of portal hypertension with esophageal, gastric and splenic varices and recanalization of the left umbilical vein. Gallbladder: Surgically absent. Spleen: There is moderate splenomegaly with the spleen measuring 18.0 cm in pole to pole length. Pancreas: There are no pancreatic abnormalities evident although the pancreas is obscured by surrounding venous varices and lymphadenopathy. Adrenals: Normal. Kidneys: Normal renal sizes. No hydronephrosis. There is a stable low-density nodule in the interpolar cortex of the left kidney, most consistent with a cyst. Bladder: The bladder is partially evacuated. Reproductive Organs: The prostate gland measures 5.7 cm in transverse dimension and contains coarse calcifications. The seminal vesicles are unremarkable. There is free fluid in the pelvis. There is bilateral inguinal lymphadenopathy not significantly changed. Suspect non descended testis on the left. Bowel: Status post colonic resection with a staple line at the anorectal junction. The bowel is fluid-filled. Appendix: Surgically absent. Lymph nodes: Extensive retroperitoneal and mesenteric lymphadenopathy, not significantly changed. Vasculature: The abdominal aorta and IVC are normal. Peritoneum / Retroperitoneum: There is free fluid in the abdomen. There is a fluid-filled umbilical hernia, measuring 2.3 cm in diameter. There is a left inguinal hernia measuring 3.6 cm in diameter. Bones: There are no significant bony abnormalities of the abdomen or pelvis. CT/CT Chest, Abd, Pel w/Contrast IMPRESSION: 1. Lower cervical, thoracic and abdominal pelvic lymphadenopathy, not signific antly changed. 2. Mass in the left hepatic lobe not significantly changed. 3. Hepatosplenomegaly. Evidence of portal hypertension as described. 4. The gastrointestinal tract is filled with fluid. 5. Other findings as noted, not significantly changed. Reading Location: [id number]
--- OUTSIDE RECORDS SUMMARY | 2025-06-03 07:18 | XMS RPT_ITS | CCD ---
Author Organization [facility]ini[employer] Care Team Providers Care Nanotechnology Engineering Technologist Name Role Phone Unavailable Primary Care Provider Unavailabl e SELF Referring Unavailable Diana [facility], Trish Zhao Unavailable Ender RN, Maria M Unavailable Unavailable Dr. Mark Isaacs DO Emergency Provider Dr. Dinah Lazaro DO Admit Provider Dr. Dinah Lazaro DO Other Provider Byron HOOK, Dr. Salena Duckworth Attending Provider Kate HOOK, Dr. John Otero Other Provider Dr. Jose Ramachandran DO Primary Care Provider Care Physician, No Primary Primary Care Provider Unavailable Dr. Jonh Love MD Attending Provider Dr. John Love MD Referring Provider Dr. Kailash Gustafson DO Attending Provider Anne Marie HOOK, Dr. Edinson Connell Attending Provider Dr. Dinah Lazaro DO Referring Provider Dr. Aniket Paniagua MD Attending Provider Byron HOOK, Dr. Salena Duckworth Other Provider Dr. Jose Ramachandran DO Referring Provider Amaury FEATHER SHAPER-C, Mitra Attending Provider Dr. Trish Ortiz MD Attending Provider Amaury FEATHER SHAPER-C, Mitra Referring Provider Ana Maria FEATHER SHAPER-C, Geeta Attending Provider Andrew HOOK, Dr. Flores Attending Provider Diana HOOK, Dr. Chambers Referring Provider Calos HOOK, Dr. Trejo Attending Provider Marcos SANTIAGO, Johny Primary Care Provider Calos HOOK, Dr. Trejo Referring Provider Calos HOOK, Dr. Trejo Other Provider Marcos SANTIAGO, Johny Attending Provider Diana HOOK, Dr. Chambers Referring Provider Dr. Aryan Ramirez DO Emergency Provider Diana HOOK, Dr. Chambers Referring Provider Dr. Aryan Ramirez DO Attending Provider Marcos SANTIAGO, Johny Referring Provider [phone] Care Physician, No Primary Primary Care Provider Unavailable Kate HOOK, Dr. John Otero Attending Provider Kate HOOK, Dr. John Otero Referring Provider Janay MTZ, Dr. Linder Attending Provider Dr. Jose Ramachandran DO Primary Care Provider Dr. Jose Ramachandran DO Primary Care Provider Dr. Jose Ramachandran DO Referring Provider [phone] TRISH ORTIZ Referring Unavailable LAZARO PERRY Attending Unavailable SELF, SELF Referring Unavailable LAZARO PERRY Attending Unavailable LAZARO PERRY Admitting Unavailable HICKEY, DIRK E Referring Unavailable LAZARO PERRY Attending Unavailable Dr. Jose Ramachandran DO Primary Care Provider Dr. Trish Ortiz MD Attending Provider Dr. Jose Ramachandran DO Primary Care Provider Dr. Jose Ramachandran DO Referring Provider Dr. Trish Ortiz MD Attending Provider Gabo Whelan MD Emergency Provider Gabo Whelan MD Attending Provider Yan HOOK, Dr. Boyer Attending Provider Robotham, Maya Referring Unavailable Robotham, Maya Attending Unavailable Wayt PA, Johny Primary Care Unavailable Gabo Whelan Attending Unavailable Wayt PA, Johny Primary Care Unavailable Isckarus, Mansour Referring Unavailable Isckarus, Mansour Attending Unavailable Wayt PA, Johny Primary Care Unavailable Isckar, Malaour Attending Unavailable Wayt PA, Johny Primary Care Unavailable Wayt PA, Johny Referring Unavailable John Love Attending Unavailable Dinah Lazaro Admitting Unavailable Care Physician, No Primary Primary Care Unava ilable Dinah Lazaro Consulting Unavailable John Love F Consulting Unavailable Edwin Loveolas F Referring Unavailable Kailash Gustafson Attending Unavailable Ana Maria FEATHER SHAPER, Geeta Attending Unavailable Wayt PA, Johny Primary Care Unavailable Wayt PA, Johny Referring Unavailable Isckarus, Mansour Attending Unavailable Madie, Jose Primary Care Unavailable Mitra Rebolledo Referring Unavailable Aryan Ramirez Attending Unavailable Wayt PA, Johny Primary Care Unavailable Ana Maria FEATHER SHAPER, Geeta Attending Unavailable Ana Maria FEATHER SHAPER, Geeta Referring Unavailable Wayt PA, Johny Primary Care Unavailable Isckarus, Mansour Attending Unavailable Wayt PA, Johny Primary Care Unavailable Wayt PA, Johny Referring Unavailable Madie, Jose Referring Unavailable Mark Morales Attending Unavailable Wayt PA, Johny Primary Care Unavailable Isckarus, Mansour Attending Unavailable Wayt PA, Johny Primary Care Unavailable Wayt PA, Johny Referring Unavailable Ana Maria FEATHER SHAPER, Geeta Attending Unavailable Wayt PA, Johny Primary Care Unavailable Wayt PA, Johny Referring Unavailable Ana Maria FEATHER SHAPER, Geeta Attending Unavailable Wayt PA, Johny Primary Care Unavailable Wayt PA, Johny Referring Unavailable Madie, Jose Referring Unavailable Madie, Jose Primary Care Unavailable Mitra Rebolledo Attending Unavailable Dinah Lazaro Attending Unavailable Isckarus, Mansour Referring Unavailable Isckarus, Mansour Attending Unavailable Madie, Jose Primary Care Unavailable Isckarus, Mansour Referring Unavailable Isckarus, Mansour Attending Unavailable Wayt PA, Johny Primary Care Unavailable Ana Maria FEATHER SHAPER, Geeta Attending Unavailable Madie, Jose Primary Care Unavailable Madie, Jose Referring Unavailable Madie, Jose Referring Unavailable Wayt PA, Johny Attending Unavailable Wayt PA, Johny Primary Care Unavailable Isckarus, Mansour Attending Unavailable Madie, Jose Primary Care Unavailable Madie, Jose Referring Unavailable Aniket Paniagua Attending Unavailable Care Physician, No Primary Primary Care Unava ilable Robotham, Maya Consulting Unavailable Robotham, Maya Referring Unavailable Robotham, Maya Attending Unavailable Wayt PA, Johny Primary Care Unavailable Koram, Salena Donita Attending Unavailable Madie, Jose Primary Care Unavailable Koram, Salena Donita Consulting Unavailable Koram, Salena Donita Attending Unavailable Madie, Jose Primary Care Unavailable Dinah Lazaro Consulting Unavailable Dinah Lazaro Admitting Unavailable John Love Consulting Unavailable Ana Maria FEATHER SHAPER, Geeta Attending Unavailable Marcos PA, Johny Primary Care Unavailable Wayt PA, Johny Referring Unavailable Madie, Jose Referring Unavailable Linda Herediabe Attending Unavailable Wayt PA, Johny Primary Care Unavailable Robotham, Maya Attending Unavailable Madie, Jose Referring Unavailable Wayt PA, Johny Primary Care Unavailable Madie, Jose Primary Care Unavailable Madie, Jose Referring Unavailable Isckarus, Mansour Attending Unavailable Madie, Jose Primary Care Unavailable Madie, Jose Referring Unavailable Isrrael Moralesril Attending Unavailable Ana Maria FEATHER SHAPER, Geeta Attending Unavailable Wayshai SANTIAGO, Johny Primary Care Unavailable Wayt JACK, Johny Referring Unavailable Allergies Allergy Classification Reported Allergen(s) Allergy Type Date of Onset Reaction(s) Facility (16 sources) Penicillins Allergy to substance 0 PT UNSURE OF REACTION [facility] (1 source) Acetaminophen Drug Allergy 5 Itching [facility] (1 source) Penicillins Propensity to adverse reactions to drug 5 Rash [facility] (15 sources) Acetaminophen Drug Allergy 5 Itching [facility] (1 source) Acetaminophen Drug Allergy 5 [facility] Repository (1 source) Penicillins Drug allergy (disorder) [facility] Repository Medications Current Medications Medication Drug [...] Cholestyramine-Aspart sabina (Cholestyramine Light) 4 gram powder (15 sources) Start: 12-05-2024 Cholestyramine-A spartame (Cholestyramine Light) 4 gram powder Active 4 g PO THREE TIMES A DAY 239.4 2 December 05, 2024 1:00am administer w/meal; avoid other meds within 1hr before or 4-6hr after dose Start: 12-05-2024 Cholestyramine -Aspartame (Cholestyramine Light) 4 gram powder Active 4 g PO THREE TIMES A DAY 239.4 December 05, 2024 1:00am administer w/meal; avoid other meds within 1hr before or 4-6hr after dose ferrous gluconate (1 source) Ferrous Gluconat e (IRON 27 PO) Take by mouth. Active 12 hr guaiFENesin 1200 mg extended release oral tablet (16 sources) Start: 11-22-2024 take 1 tablet by mouth once daily, then take 1 tablet by mouth every twelve hours Guaifenesin (Mucinex) 1,200 mg tablet extended release 12hr Active 1200 mg PO DAILY November 22, 2024 1:00am take 1 tablet by mouth twice sandra ly guaiFENesin 600 MG Tab SR 12 HR tablet SR Take 1 tablet by mouth 2 times daily. Active immodium (2 sources) Start: 05-15-2025 immodium Active PO May 15, 2025 12:00am immodium liquid unsure of strength takes daily 24 hr metoprolol succinate 25 mg extended release oral tablet (15 sources) beta-Adrenergic Naheed Start: 02-06-2025 take 1 tablet by mouth once daily Metoprolol Succinate (Toprol Xl) 25 mg tablet extended release 24 hr Active 25 mg PO daily 90 3 February 06, 2025 12:00am ondansetron 8 mg disintegrating oral tablet (11 sources) Serotonin-3 Receptor Antagonist Start: 03-18-2025 take 1 tablet by mouth every eight hours as needed for nausea and vomiting Ondansetron 8 mg tablet,disintegrating Active 8 mg PO Q8H as needed for nausea and vomiting March 18, 2025 12:00am Cholangiocarcinoma Intrahepatic bile duct carcinoma Start: 01-20-2025 End: 01-20-2025 take 4 mg intravenously every four hours as needed 4 mg, Intravenous, EVERY 4 HOURS NEEDED, Starting on Sun01/20/25 at 1641, Until Sun01/20/25 at 1957, Nausea / Vomiting, 1st Line Nausea / Vomiting, Post-op/Post-Proc pantoprazole 40 mg delayed release oral tablet (19 sources) Proton Pump Inhibitor Start: 11-26-2024 End: 05-12-2025 take 1 tablet by mouth once daily Pantoprazole 40 mg tablet,delayed release (DR/EC) Active 40 mg PO DAILY May 12, 2025 8:27am prochlorperazine 10 mg oral tablet (11 sources) Phenothiazine Start: 03-18-2025 take 1 tablet by mouth every six hours as needed for nausea and vomiting Prochlorperazine Maleate 10 mg tablet Active 10 mg PO EVERY 6 HOURS as needed for nausea and vomiting March 18, 2025 12:00am Chemotherapy-induced nausea and vomiting Nausea with vomiting, unspecified Adverse effect of antineoplastic and immunosuppressive drugs, initial encounter Start: 01-20-2025 End: 01-20-2025 take 10 mg intravenously every six hours as needed 10 mg, Intravenous, EVERY 6 HOURS NEEDED, Starting on Sun01/20/25 at 164, Until Sun01/20/25 at 1957, Nausea / Vomiting, 2nd Line Nausea / Vomiting, For IV route: dilute dose with 10mL normal saline and give by slow IV push at a rate of 5mg/min. Maximum of 40mg/day., Post-op/Post-Proc Completed/Discontinued Medications Medication Drug Class(es) Dates Sig (Normalized) Sig (Original) acetaminophen 325 mg oral tablet (1 source) Start: End: take 1 tablet by mouth every four hours as needed 650 mg, Oral, EVERY 4 HOURS NEEDED, Starting on Sun01/20/25 at 1641, Until Sun01/20/25 at 1958, Mild Pain, Maximum dose of acetaminophen is 4000 mg from all sources in 24 hours., Post-op/Post-Proc Acetaminophen / oxyCODONE (1 source) Opioid Agonist Start: 5 End: 5 take 1 tablet by mouth every four hours as needed oxyCODONE-acetaminophe n (PERCOCET) 5-325 MG per tablet 1 tablet cyclobenzaprine hydrochloride 10 mg oral tablet (16 sources) Muscle Relaxant Start: 0 End: 5 take 1 tablet by mouth three times daily as needed for muscle spasms Cyclobenzaprine 10 MG tablet Discontinued 10 mg PO THREE TIMES A DAY as needed for Muscle Spasm 20 0 June 25, 2020 12:00am November 22, 2024 3:07pm furosemide 20 mg oral tablet (16 sources) Loop Diuretic Start: 5 End: 5 take 1 tablet by mouth once daily Furosemide (Lasix) 20 mg tablet Discontinued 20 mg PO DAILY 30 2 November 26, 2024 1:00am April 07, 2025 9:47am HYDROmorphone (DILAUDID) injection 0.5 mg (1 source) Start: 5 End: 5 take 0.5 mg intravenously every three hours as needed HYDROmorphone (DILAUDID) injection 0.5 mg ivermectin 3 mg oral tablet (15 sources) Antiparasitic, Pediculicide Start: 5 End: 5 take 1 tablet by mouth once daily Ivermectin 3 mg tablet Discontinued 3 mg PO DAILY November 22, 2024 1:00am November 26, 2024 5:33pm Lidocaine / Prilocaine (10 sources) Antiarrhythmic, Amide Local Anesthetic Start: 5 End: 5 Lidocaine-Prilocaine 2.5-2.5 % cream Discontinued 1 NMA TOPICAL ONCE as needed for port access 30 30 2 March 18, 2025 12:00am May 15, 2025 9:26am Cholangiocarcinoma Intrahepatic bile duct carcinoma Start: 03-18-2025 Lidocaine-Pril ocaine 2.5-2.5 % cream Active 1 NMA TOPICAL ONCE as needed for port access March 18, 2025 12:00am Cholangiocarcinoma Intrahepatic bile duct carcinoma Start: 03-18-2025 Lidocaine-Pril ocaine 2.5-2.5 % cream Active 1 NMA TOPICAL ONCE as needed for port access March 18, 2025 12:00am loperamide hydrochloride 2 mg oral capsule (15 sources) Opioid Agonist Start: 02-09-2025 End: 05-15-2025 take 1 capsule by mouth once daily Loperamide (Imodium A-D) 2 mg capsule Discontinued 2 mg PO daily February 09, 2025 12:00am May 15, 2025 9:26am naproxen 500 mg oral tablet (16 sources) Nonsteroidal Anti-inflammatory Drug Start: 06-25-2020 End: 11-22-2024 take 1 tablet by mouth twice daily as needed Naproxen 500 MG tablet Discontinued 500 mg PO TWICE DAILY NEEDED June 25, 2020 12:00am November 22, 2024 3:07pm potassium chloride 10 meq extended release oral tablet (16 sources) Start: 11-26-2024 End: 02-03-2025 take 1 tablet by mouth once daily Potassium Chloride 10 mEq tablet extended release Discontinued 10 meq PO DAILY 06 11November 26, 2024 1:00am February 03, 2025 9:25am 1000 ml sodium chloride 9 mg/ml injection (1 source) Start: 01-20-2025 End: 01-20-2025 Intravenous, at 50 mL/hr, CONTINUOUS, Starting on Sun01/20/25 at 1200, Until Sun01/20/25 at 1958, Pre-op/Pre-Proc traMADol hydrochloride 50 mg oral tablet (15 sources) Opioid Agonist Start: 02-11-2025 End: 02-16-2025 take 1 tablet by mouth every six hours as needed for pain Tramadol 50 mg tablet Discontinued 50 mg PO EVERY 6 HOURS as needed for pain 5 2 0 February 11, 2025 12:00am February 16, 2025 2:02pm Postoperative pain Other acute postprocedural pain Problems Active Problems Problem Classification Problem Date Documented Date Episodic/Chronic Abdominal hernia (2 sources) Hernia of abdominal cavity; Translations: [Unspecified abdominal hernia without obstruction or gangrene] 05-15-2025 Episodic Acute and unspecified renal failure (20 sources) Injury of kidney; Translations: [Acute kidney failure, unspecified] 06-10-2020 Episodic Asthma (20 sources) Asthma; Translations: [Unspecified asthma, uncomplicated] 06-10-2020 Chronic Comment on above: NO INHALER USED Cancer of liver and intrahepatic bile duct (20 sources) Cholangiocarcinoma of biliary tract; 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] 02-04-2025 Chronic Cardiac and circulatory congenital anomalies (20 sources) Bicuspid aortic valve; Translations: [Congenital insufficiency of aortic valve] Onset: 5 06-10-2020 Chronic Cardiac dysrhythmias (20 sources) Atrial fibrillation; Translations: [Unspecified atrial fibrillation] Onset: 5 02-04-2025 Chronic Complications of surgical procedures or medical care (5 sources) Complication of infusion; Translations: [Unspecified complication following infusion and therapeutic injection, initial encounter] Onset: 5 04-30-2025 Episodic Deficiency and other anemia (20 sources) Iron deficiency anemia due to blood loss; Translations: [Iron deficiency anemia secondary to blood loss (chronic)] 12-10-2024 Chronic Deficiency and other anemia (1 source) Iron deficiency anemia secondary to blood loss (chronic); Translations: [Iron deficiency anemia secondary to blood loss (chronic)] Onset: 5 Chronic Deficiency and other anemia (20 sources) Anemia; Translations: [Anemia, unspecified] 12-04-2024 Episodic Deficiency and other anemia (1 source) Iron deficiency anemia, unspecified; Translations: [Iron deficiency anemia, unspecified] Onset: 5 Episodic Deficiency and other anemia (20 sources) Deficiency and other anemia; Translations: [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] E Codes: Adverse effects of medical care (4 sources) Other specified misadventures during surgical and medical care; Translations: [Instrumnt fail-infusion] 04-30-2025 Episodic E Codes: Natural/environment (1 source) Insect bite - wound; Translations: [Bitten or stung by nonvenomous insect and other nonvenomous arthropods, initial encounter] 07-25-2024 Episodic Heart valve disorders (20 sources) Aortic stenosis, non-rheumatic ; Translations: [Nonrheumatic aortic (valve) stenosis] 06-10-2020 Chronic Comment on above: at [facility] Lymphadenitis (20 sources) Mesenteric lymphadenopathy; Translations: [Localized enlarged lymph nodes] Onset: 5 02-03-2025 Episodic Malignant neoplasm without specification of site (4 sources) Malignant (primary) neoplasm, unspecified; Translations: [Malignant (primary) neoplasm, unspecified] Onset: Chronic Other gastrointestinal disorders (20 sources) Ascites; Translations: [Other ascites] 02-04-2025 Episodic Other liver diseases (13 sources) Liver mass; Translations: [Hepatomegaly, not elsewhere classified] 11-26-2024 Episodic Other liver diseases (3 sources) Elevated total bilirubin; Translations: [Unspecified jaundice] 05-12-2025 Episodic Other liver diseases (1 source) Unspecified jaundice; Translations: [Unspecified jaundice] Onset: Episodic Other lower respiratory disease (20 sources) Dyspnea on exertion; Translations: [Other forms of dyspnea] 02-04-2025 Episodic Other upper respiratory disease (12 sources) Nasal discharge; Translations: [Other specified disorders of nose and nasal sinuses] 03-10-2025 Episodic Other upper respiratory disease (1 source) Epistaxis; Translations: [Epistaxis] Onset: Episodic Regional enteritis and ulcerative colitis (20 sources) Chronic ulcerative pancolitis; Translations: [Ulcerative (chronic) pancolitis without complications] Onset: 5 04-16-2020 Chronic Comment on above: Hx ileal-anal anasto mosis with J-pouch Residual codes; unclassified (20 sources) Edema of lower extremity; Translations: [Localized edema] 12-04-2024 Episodic Residual codes; unclassified (2 sources) Other specified health status; Translations: [Other specified health status] Onset: Episodic Secondary malignancies (20 sources) Secondary malignant neoplasm of liver; Translations: [Secondary malignant neoplasm of liver and intrahepatic bile duct] 12-10-2024 Chronic Comment on above: Most likely colorect al primary. Secondary malignancies (4 sources) Secondary malignant neoplasm of liver and intrahepatic bile duct; Translations: [Secondary malignant neoplasm of liver and intrahepatic bile duct] Onset: Chronic Secondary malignancies (1 source) Malignant ascites; Translations: [Malignant ascites] Onset: Chronic Systemic lupus erythematosus and connective tissue disorders (20 sources) Eosinophilic granulomatosis with polyangiitis; 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 [[place]urg-Geronimo]] 06-10-2020 Chronic Unclassified (1 source) No additional problems on file Unclassified (20 sources) C78.7 - Secondary malignant neoplasm of liver and intrahepatic bile duct,C80.1 - Malignant (primary) neoplasm, unspecified Unclassified (15 sources) C78.7 - Secondary malignant neoplasm of liver and intrahepatic bile duct,C80.1 - Malignant (primary) neoplasm, unspecified,I48.91 - Unspecified atrial fibrillation Unclassified (15 sources) J45.909 - Unspecified asthma, uncomplicated,Z95.4 - [...] deficiency anemia secondary to blood loss (chronic) Unclassified (10 sources) C22.1 - Intrahepatic bile duct carcinoma,C78.7 - Secondary malignant neoplasm of liver and intrahepatic bile duct,C80.1 - Malignant (primary) neoplasm, unspecified Unclassified (8 sources) Cholangiocarcinoma Unclassified (20 sources) 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 Unclassified (8 sources) History of aortic valve replacement with bioprosthetic valve Unclassified (8 sources) Nonrheumatic aortic valve stenosis Past or Other Problems Problem Classification Problem Date Documented Da te Episodic/Chronic Administrative/social admission (20 sources) Patient encounter status; Translations: [Counseling, unspecified] Onset: 5 02-05-2025 Episodic Deficiency and other anemia (1 source) Anemia, unspecified; Translations: [Anemia, unspecified] Onset: 5 Episodic Gastrointestinal hemorrhage (20 sources) Acute gastrointestinal hemorrhage; Translations: [Gastrointestinal hemorrhage, unspecified] Onset: 5 12-04-2024 Episodic Heart valve disorders (20 sources) Heart murmur; Translations: [Cardiac murmur, unspecified] Onset: 5 02-04-2025 Episodic Malaise and fatigue (20 sources) Fatigue; Translations: [Other fatigue] Onset: 5 12-04-2024 Episodic Nonspecific chest pain (20 sources) Chest pain; Translations: [Chest pain, unspecified] Onset: 5 06-10-2020 Episodic Other aftercare (1 source) Encounter for adjustment and management of vascular access device; Translations: [Encounter for adjustment and management of vascular access device] Onset: 5 Episodic Other liver diseases (2 sources) Hepatomegaly, not elsewhere classified; Translations: [Hepatomegaly, not elsewhere classified] Onset: 5 Episodic Other lower respiratory disease (2 sources) Other forms of dyspnea; Translations: [Other forms of dyspnea] Onset: 5 Episodic Residual codes; unclassified (1 source) Localized edema; Translations: [Localized edema] Onset: 5 Episodic Thyroid disorders (1 source) Disorder of thyroid, unspecified; Translations: [Disorder of thyroid, unspecified] Onset: 5 Episodic Results Test Name Value Interpretation Reference Range Facility Absolute lymphocyte countOrd ered By: Trish Ortiz on 05-27-2025 Lymphocytes Auto (Unsp spec) [#/Vol] 0.78 10*3/uL Low 0.83-4.51 [facility] Absolute neutrophil countOrd ered By: Trish Ortiz on 05-27-2025 Neutrophils (Bld) [#/Vol] 5.6 10*3/uL 2.0-7.7 [facility] Anion gap in Serum or Plasma Ordered By: Trish Ortiz on 05-27-2025 Anion gap [Moles/Vol] 10 mmol/L 5-15 [facility] Automated lymphocyte count a s percentage of total leukocytesOrdered By: Trish Ortiz on 05-27-2025 Lymphocytes/100 WBC Auto (Unsp spec) 10.4 % Low 19-41 [facility] BUN/creatinine ratioOrdered By: Trish Ortiz on 05-27-2025 Urea nitrogen/Creatinine [Mass ratio] 17.4 mg/mg 10- [facility] Basophil percentageOrdered B y: Trish Dukeantonio on 05-27-2025 Basophils/100 WBC (Bld) 0.5 % 0-1 [facility] Bilirubin, totalOrdered By: Trish Dukeantonio on 05-27-2025 Bilirubin [Mass/Vol] 1.46 mg/dL High 0.00-1.30 [facility] CBC W/Diff, Automatedon 05-09 Anisocytosis Ql (Bld) 2+ Normal [facility] Comment on above: Performed By: #### L 500.4050, L501.5200, L100.0100 ####[facility] [id number] [place], [address] Carbon dioxide, total [Moles /volume] in Central venous bloodOrdered By: Trish Diana on 05-27-2025 CO2 [Moles/Vol] 21.2 mmol/L 21.0-32.0 [facility] Chloride assayOrdered By: Trent dolly Diana on 05-27-2025 Chloride [Moles/Vol] 106 mmol/L 98-108 [facility] Comprehensive Metabolic Prof ilon 05-27-2025 Albumin [Mass/Vol] 3.1 g/dL Low 3.5-5.0 [facility] Comment on above: Performed By: #### L 500.4050, L501.5200, L100.0100 ####[facility] [id number] [place], [address] Albumin/Globulin [Mass ratio] 0.8 {ratio} Low 0.9-2.4 [facility] Comment on above: Performed By: #### L 500.4050, L501.5200, L100.0100 ####[facility] [address] [place], [address] ALK PHOS 489 U/L High 40-129 [facility] Comment on above: Performed By: #### L 500.4050, [id number], L100.0100 ####[facility] [id number] [place], [address] ALT [Catalytic activity/Vol] 44 U/L Normal <=46 [facility] Comment on above: Performed By: #### L 500.4050, [id number], L100.0100 ####[facility] [address] [place], [address] AST [Catalytic activity/Vol] 54 U/L High <=37 [facility] Comment on above: Performed By: #### L 500.4050, [id number], L100.0100 ####[facility] [address] [place], [address] Bilirubin [Mass/Vol] 1.46 mg/dL High 0.00-1.30 [facility] Comment on above: Performed By: #### L 500.4050, L501.5200, L100.0100 ####[facility] [address] [place], [address] BUN/CRE 17.4 RATIO Normal 10-20 [facility] Comment on above: Performed By: #### L 500.4050, L501.5200, L100.0100 ####[facility] [address] [place], [address] Calcium [Mass/Vol] 8.4 mg/dL Normal 7.6-11.0 [facility] Comment on above: Performed By: #### L 500.4050, L501.5200, L100.0100 ####[facility] [address] [place], [address] Chloride [Moles/Vol] 106 mmol/L Normal 98-108 [facility] Comment on above: Performed By: #### L 500.4050, L501.5200, L100.0100 ####[facility] [address] [place], [address] CO2 [Moles/Vol] 21.2 mmol/L Normal 21.0-32.0 [facility] Comment on above: Performed By: #### L 500.4050, L501.5200, L100.0100 ####[facility] [address] [place], [address] Creatinine [Mass/Vol] 0.77 mg/dL Normal 0.70-1.20 [facility] Comment on above: Performed By: #### L 500.4050, L501.5200, L100.0100 ####[facility] [address] [place], [address] ECRCL 129.55 ml/min Normal 50-250 [facility] Comment on above: Performed By: #### L 500.4050, L501.5200, L100.0100 ####[facility] [address] [place], [address] GAP 10 Normal 5-15 [facility] Comment on above: Performed By: #### L 500.4050, L501.5200, L100.0100 ####[facility] [address] [place], [address] GFR/1.73 sq M.predicted among non-blacks MDRD (S/P/Bld) [Vol rate/Area] 106 mL/min/{1.73_m2} Normal >60 [facility] Comment on above: Result Comment: mL/m in/1.73m2 CKD-EPI Creatinine Equation (2020) Performed By: #### L 500.4050, L501.5200, L100.0100 ####[facility] [address] [place], [address] Globulin (S) [Mass/Vol] 4.0 g/dL Normal 2.2-4.2 [facility] Comment on above: Performed By: #### L 500.4050, L501.5200, L100.0100 ####[facility] [address] [place], [address] Glucose [Mass/Vol] 97 mg/dL Normal 70-99 [facility] Comment on above: Performed By: #### L 500.4050, L501.5200, L100.0100 ####[facility] [address] [place], [address] Potassium [Moles/Vol] 3.7 mmol/L Normal 3.3-5.1 [facility] Comment on above: Performed By: #### L 500.4050, L501.5200, L100.0100 ####[facility] [address] [place], [address] Sodium [Moles/Vol] 137 mmol/L Normal 133-145 [facility] Comment on above: Performed By: #### L 500.4050, L501.5200, L100.0100 ####[facility] [address] [place], [address] T PROT 7.0 g/dL Normal 5.9-8.4 [facility] Comment on above: Performed By: #### L 500.4050, L501.5200, L100.0100 ####[facility] [address] [place], [address] Urea nitrogen [Mass/Vol] 13 mg/dL Normal 4-19 [facility] Comment on above: Performed By: #### L 500.4050, L501.5200, L100.0100 ####[facility] [address] [place], [address] Eosinophil percentageOrdered By: Trish Ortiz on 05-27-2025 Eosinophils/100 WBC (Bld) 2.4 % 0-5 [facility] Erythrocyte distribution wid th ratioOrdered By: Trish Ortiz on 05-27-2025 Erythrocyte distribution width (RBC) [Ratio] 24.0 % High 11.6-14.6 [facility] Erythrocyte distribution wid th standard deviationOrdered By: Trish Ortiz on 05-27-2025 Erythrocyte distribution width (RBC) [Ratio] 73.0 fl High 35.1-43.9 [facility] Ferritinon 05-27-2025 Ferritin [Mass/Vol] 70 ng/mL Normal 37-417 [facility] Comment on above: Performed By: #### L [id number], L503.6030 ####[facility] [address] [place], [place], [address] Glomerular filtration rate ( GFR) estimation/1.73 sq m using serum, plasma, or whole bOrdered By: Trish Ortiz on 05-27-2025 GFR/1.73 sq M.predicted among non-blacks MDRD (S/P/Bld) [Vol rate/Area] 106 mL/min/{1.73_m2} >60 [facility] Comment on above: mL/min/1.73m2 CKD-EP I Creatinine Equation (2020) Hematocrit Auto (Bld) [Volum e fraction]Ordered By: [facility] on 05-27-2025 Hematocrit (Bld) [Volume fraction] 33.0 % Low 40-54 [facility] Hemoglobin measurementOrdere d By: Trish Ortiz on 05-27-2025 Hemoglobin (Bld) [Mass/Vol] 10.5 g/dL Low 13.0-16.5 [facility] Immature granulocytes/100 WB C Auto (Bld)Ordered By: Trish Ortiz on 05-27-2025 Immature granulocytes/100 WBC (Bld) 0.300 % 0.0-0.9 [facility] Comment on above: IG% - Immature Granu locytes (promyelocytes, myelocytes and metamyelocytes) > 1% indicates that a LEFT SHIFT is Present. Iron+Iron Binding Capacityon 05-27-2025 Iron [Mass/Vol] 28 ug/dL Low 65-175 [facility] Comment on above: Performed By: #### L 503.6550, L503.6030 ####[facility] [address] [place], [place], [phone] IRON SATURATION 10.0 Normal 9-55 [facility] Comment on above: Performed By: #### L 503.6550, L503.6030 ####[facility] [address] [place], [address] TIBC 288 ug/dL Normal 250-450 [facility] Comment on above: Performed By: #### L 503.6550, L503.6030 ####[facility] [address] [place], [address] UIBC 260 ug/dL Normal 228-428 [facility] Comment on above: Performed By: #### L 503.6550, L503.6030 ####[facility] [address] [place], [address] Laboratory - Chemistry and C hemistry - challengeOrdered By: Trish Ortiz on 05-27-2025 AST [Catalytic activity/Vol] 54 U/L High <38 [facility] Laboratory - Hematology and Cell countsOrdered By: Trish Ortiz on 05-27-2025 Anisocytosis Ql (Bld) 2+ [facility] MCV (mean corpuscular volume ) determinationOrdered By: Trish Ortiz on 05-27-2025 MCV (RBC) [Entitic vol] 85.5 fL 80-94 [facility] Magnesiumon 05-27-2025 Magnesium [Mass/Vol] 1.6 mg/dL Normal 1.5-2.2 [facility] Comment on above: Performed By: #### L 500.4050, L501.5200, L100.0100 ####[facility] [address] [place], [address] Magnesium measurement (mass/ volume)Ordered By: Trish Ortiz on 05-27-2025 Magnesium (Unsp spec) [Mass/Vol] 1.6 mg/dL 1.5-2.2 [facility] Mean corpuscular hemoglobin (MCH) determinationOrdered By: Trish Ortiz on 05-27-2025 MCH (RBC) [Entitic mass] 27.2 pg 27.0-32.0 [facility] Mean corpuscular hemoglobin concentration (MCHC) determinationOrdered By: Trish Ortiz on 05-27-2025 MCHC (RBC) [Mass/Vol] 31.8 g/dL Low 32-36 [facility] Mean platelet volume determi nationOrdered By: Trish Ortiz on 05-27-2025 Platelet mean volume (Bld) [Entitic vol] 9.7 fL 6.2-12.0 [facility] Monocyte percentageOrdered B y: Trish Ortiz on 05-27-2025 Monocytes/100 WBC (Bld) 11.9 % High 0-10 [facility] Neutrophil percentageOrdered By: Trish Ortiz on 05-27-2025 Neutrophils/100 WBC (Bld) 74.5 % High 47-70 [facility] Nucleated red blood cell per centageOrdered By: Trish Ortiz on 05-27-2025 Nucleated RBC/100 WBC (Bld) [Ratio] 0 % 0-5 [facility] Oncology Visit Reporton 08 Oncology Visit Report Normal [facility] Platelet countOrdered By: Trent Ortiz on 05-27-2025 Platelets (Bld) [#/Vol] 257 10*3/uL 150-450 [facility] Potassium measurement (mass/ volume)Ordered By: Trish Ortiz on 05-27-2025 Potassium (Unsp spec) [Mass/Vol] 3.7 mmol/L 3.3-5.1 [facility] RBC Auto (Bld) [#/Vol]Ordere d By: Trish Ortiz on 05-27-2025 RBC (Bld) [#/Vol] 3.86 10*6/uL Low 4.6-6.2 [facility] Serum creatinine measurement (mass/volume)Ordered By: Trish Ortiz on 05-27-2025 Creatinine [Mass/Vol] 0.77 mg/dL 0.70-1.20 [facility] Serum globulin measurementOr dered By: Trish Ortiz on 05-27-2025 Globulin (S) [Mass/Vol] 4.0 g/dL 2.2-4.2 [facility] Serum glucose measurement (m ass/volume)Ordered By: Trish Ortiz on 05-27-2025 Glucose [Mass/Vol] 97 mg/dL 70-99 [facility] Serum or plasma alanine arroyo otransferase (ALT) measurementOrdered By: Trish Ortiz on 05-27-2025 ALT [Catalytic activity/Vol] 44 U/L <47 [facility] Serum or plasma albumin bernard urement (mass/volume)Ordered By: Trish Ortiz on 05-27-2025 Albumin [Mass/Vol] 3.1 g/dL Low 3.5-5.0 [facility] Serum or plasma albumin/glob ulin mass ratioOrdered By: Trish Ortiz on 05-27-2025 Albumin/Globulin [Mass ratio] 0.8 {ratio} Low 0.9-2.4 [facility] Serum or plasma alkaline rubio sphatase measurementOrdered By: Trish Ortiz on 05-27-2025 ALP [Catalytic activity/Vol] 489 U/L High 40-129 [facility] Serum or plasma calcium bernard urement (mass/volume)Ordered By: Trish Ortiz on 05-27-2025 Calcium [Mass/Vol] 8.4 mg/dL 7.6-11.0 [facility] Serum or plasma urea nitroge n measurement (mass/volume)Ordered By: Trish Ortiz on 05-27-2025 Urea nitrogen [Mass/Vol] 13 mg/dL 4-19 [facility] Sodium levelOrdered By: Mala Ortiz on 05-27-2025 Sodium [Moles/Vol] 137 mmol/L 133-145 [facility] Total proteinOrdered By: Luciano Ortiz on 05-27-2025 Protein [Mass/Vol] 7.0 g/dL 5.9-8.4 [facility] White blood cell (WBC) count Ordered By: Trish Ortiz on 05-27-2025 WBC (Bld) [#/Vol] 7.5 10*3/uL 4.4-11.0 [facility] Internal Medicine Office Vis itokomal 05-15-2025 Internal Medicine Office Visit Normal [facility] Absolute lymphocyte countOrd ered By: Serjio Pina on 05-12-2025 Lymphocytes Auto (Unsp spec) [#/Vol] 1.05 10*3/uL 0.83-4.51 [facility] Absolute neutrophil countOrd ered By: [facility] on 05-12-2025 Neutrophils (Bld) [#/Vol] 7.6 10*3/uL 2.0-7.7 [facility] Anion gap in Serum or Plasma Ordered By: [facility] on 05-12-2025 Anion gap [Moles/Vol] 10 mmol/L 5-15 [facility] Automated lymphocyte count a s percentage of total leukocytesOrdered By: [facility] on 05-12-2025 Lymphocytes/100 WBC Auto (Unsp spec) 10.3 % Low 19-41 [facility] BUN/creatinine ratioOrdered By: [facility] on 05-12-2025 Urea nitrogen/Creatinine [Mass ratio] 23.5 mg/mg High 10-20 [facility] Basophil percentageOrdered B y: [facility] on 05-12-2025 Basophils/100 WBC (Bld) 0.4 % 0-1 [facility] Bilirubin directOrdered By: Geeta Rodgers on 05-12-2025 Bilirubin.direct [Mass/Vol] 1.09 mg/dL High 0.00-0.30 [facility] Bilirubin, Directon 05-12-20 25 Bilirubin.direct [Mass/Vol] 1.09 mg/dL High 0.00-0.30 [facility] Comment on above: Performed By: #### L 501.4700, L504.2610 ####[facility] [address] [place], [place], [address] Bilirubin, totalOrdered By: [facility] on 05-12-2025 Bilirubin [Mass/Vol] 1.44 mg/dL High 0.00-1.30 [facility] CBC W/Diff, Automatedon Anisocytosis Ql (Bld) 3+ Normal [facility] Comment on above: Performed By: #### L 501.5200, L500.4050, L100.0100 ####[facility] [address] [place], [address] MACROCYTOSIS 2+ Normal [facility] Comment on above: Performed By: #### L 501.5200, L500.4050, L100.0100 ####[facility] [address] [place], [address] OVALOCYTE 1+ Normal [facility] Comment on above: Performed By: #### L 501.5200, L500.4050, L100.0100 ####[facility] [address] [place], [address] PLT EST ADEQUATE Normal ADEQ [facility] Comment on above: Performed By: #### L 501.5200, L500.4050, L100.0100 ####[facility] [address] [place], [address] Carbon dioxide, total [Moles /volume] in Central venous bloodOrdered By: Serjio Tavares on 05-12-2025 CO2 [Moles/Vol] 19.0 mmol/L Low 21.0-32.0 [facility] Chloride assayOrdered By: Jacki Tavares on 05-12-2025 Chloride [Moles/Vol] 109 mmol/L High 98-108 [facility] Comprehensive Metabolic Prof ilon 05-12-2025 Albumin [Mass/Vol] 3.4 g/dL Low 3.5-5.0 [facility] Comment on above: Performed By: #### L 501.5200, L500.4050, L100.0100 ####[facility] [address] [place], [address] Albumin/Globulin [Mass ratio] 0.8 {ratio} Low 0.9-2.4 [facility] Comment on above: Performed By: #### L 501.5200, L500.4050, L100.0100 ####[facility] [address] [place], [address] ALK PHOS 490 U/L High 40-129 [facility] Comment on above: Performed By: #### L 501.5200, L500.4050, L100.0100 ####[facility] [address] [place], [address] ALT [Catalytic activity/Vol] 59 U/L High <=46 [facility] Comment on above: Performed By: #### L 501.5200, L500.4050, L100.0100 ####[facility] [address] [place], [address] AST [Catalytic activity/Vol] 68 U/L High <=37 [facility] Comment on above: Performed By: #### L 501.5200, L500.4050, L100.0100 ####[facility] [address] [place], [address] Bilirubin [Mass/Vol] 1.44 mg/dL High 0.00-1.30 [facility] Comment on above: Performed By: #### L 501.5200, L500.4050, L100.0100 ####[facility] [address] [place], [address] BUN/CRE 23.5 RATIO High 10-20 [facility] Comment on above: Performed By: #### L 501.5200, L500.4050, L100.0100 ####[facility] [address] [place], [address] Calcium [Mass/Vol] 8.4 mg/dL Normal 7.6-11.0 [facility] Comment on above: Performed By: #### L 501.5200, L500.4050, L100.0100 ####[facility] [address] [place], [address] Chloride [Moles/Vol] 109 mmol/L High 98-108 [facility] Comment on above: Performed By: #### L 501.5200, L500.4050, L100.0100 ####[facility] [address] [place], [address] CO2 [Moles/Vol] 19.0 mmol/L Low 21.0-32.0 [facility] Comment on above: Performed By: #### L 501.5200, L500.4050, L100.0100 ####[facility] [address] [place], [address] Creatinine [Mass/Vol] 0.70 mg/dL Normal 0.70-1.20 [facility] Comment on above: Performed By: #### L 501.5200, L500.4050, L100.0100 ####[facility] [address] [place], [address] ECRCL 142.51 ml/min Normal 50-250 [facility] Comment on above: Performed By: #### L 501.5200, L500.4050, L100.0100 ####[facility] [address] [place], [address] GAP 10 Normal 5-15 [facility] Comment on above: Performed By: #### L 501.5200, L500.4050, L100.0100 ####[facility] [address] [place], [address] GFR/1.73 sq M.predicted among non-blacks MDRD (S/P/Bld) [Vol rate/Area] 109 mL/min/{1.73_m2} Normal >60 [facility] Comment on above: Result Comment: mL/m in/1.73m2 CKD-EPI Creatinine Equation (2020) Performed By: #### L 501.5200, L500.4050, L100.0100 ####[facility] [address] [place], [address] Globulin (S) [Mass/Vol] 4.0 g/dL Normal 2.2-4.2 [facility] Comment on above: Performed By: #### L 501.5200, L500.4050, L100.0100 ####[facility] [address] [place], [address] Glucose [Mass/Vol] 98 mg/dL Normal 70-99 [facility] Comment on above: Performed By: #### L 501.5200, L500.4050, L100.0100 ####[facility] [address] [place], [address] Potassium [Moles/Vol] 3.7 mmol/L Normal 3.3-5.1 [facility] Comment on above: Performed By: #### L 501.5200, L500.4050, L100.0100 ####[facility] [address] [place], [address] Sodium [Moles/Vol] 138 mmol/L Normal 133-145 [facility] Comment on above: Performed By: #### L 501.5200, L500.4050, L100.0100 ####[facility] [address] [place], [address] T PROT 7.4 g/dL Normal 5.9-8.4 [facility] Comment on above: Performed By: #### L 501.5200, L500.4050, L100.0100 ####[facility] [address] [place], [address] Urea nitrogen [Mass/Vol] 16 mg/dL Normal 4-19 [facility] Comment on above: Performed By: #### L 501.5200, L500.4050, L100.0100 ####[facility] [address] [place], [address] Eosinophil percentageOrdered By: Serjio Tavares on 05-12-2025 Eosinophils/100 WBC (Bld) 2.5 % 0-5 [facility] Erythrocyte distribution wid th ratioOrdered By: Serjio Tavares on 05-12-2025 Erythrocyte distribution width (RBC) [Ratio] 26.9 % High 11.6-14.6 [facility] Erythrocyte distribution wid th standard deviationOrdered By: Serjio Tavares on 05-12-2025 Erythrocyte distribution width (RBC) [Ratio] 80.2 fl High 35.1-43.9 [facility] Glomerular filtration rate ( GFR) estimation/1.73 sq m using serum, plasma, or whole bOrdered By: Serjio Tavares on 05-12-2025 GFR/1.73 sq M.predicted among non-blacks MDRD (S/P/Bld) [Vol rate/Area] 109 mL/min/{1.73_m2} >60 [facility] Comment on above: mL/min/1.73m2 CKD-EP I Creatinine Equation (2020) Hematocrit Auto (Bld) [Volum e fraction]Ordered By: Serjio Tavares on 05-12-2025 Hematocrit (Bld) [Volume fraction] 34.8 % Low 40-54 [facility] Hemoglobin measurementOrdere d By: Serjio Tavares on 05-12-2025 Hemoglobin (Bld) [Mass/Vol] 10.8 g/dL Low 13.0-16.5 [facility] Immature granulocytes/100 WB C Auto (Bld)Ordered By: Serjio Tavares on 05-12-2025 Immature granulocytes/100 WBC (Bld) 0.500 % 0.0-0.9 [facility] Comment on above: IG% - Immature Granu locytes (promyelocytes, myelocytes and metamyelocytes) > 1% indicates that a LEFT SHIFT is Present. LDHon 05-12-2025 LDH 195 U/L Normal 87-241 [facility] Comment on above: Order Comment: 1 Performed By: #### L 501.4700, L504.2610 ####[facility] [address] [place], [address] Laboratory - Chemistry and C hemistry - challengeOrdered By: Serjio Tavares on 05-12-2025 AST [Catalytic activity/Vol] 68 U/L High <38 [facility] Laboratory - Hematology and Cell countsOrdered By: Serjio Tavares on 05-12-2025 Anisocytosis Ql (Bld) 3+ [facility] Lactate dehydrogenase (LDH) measurementOrdered By: Geeta Rodgers on 05-12-2025 LDH [Catalytic activity/Vol] 195 U/L 87-241 [facility] MCV (mean corpuscular volume ) determinationOrdered By: Serjio Tavares on 05-12-2025 MCV (RBC) [Entitic vol] 83.7 fL 80-94 [facility] Macrocytes detectionOrdered By: Serjio Tavares on 05-12-2025 Macrocytes Ql (Bld) 2+ [facility] Magnesiumon 05-12-2025 Magnesium [Mass/Vol] 1.5 mg/dL Normal 1.5-2.2 [facility] Comment on above: Performed By: #### L 501.5200, L500.4050, L100.0100 ####[facility] [address] [place], [address] Magnesium measurement (mass/ volume)Ordered By: Serjio Tavares on 05-12-2025 Magnesium (Unsp spec) [Mass/Vol] 1.5 mg/dL 1.5-2.2 [facility] Mean corpuscular hemoglobin (MCH) determinationOrdered By: Serjio Tavares on 05-12-2025 MCH (RBC) [Entitic mass] 26.0 pg Low 27.0-32.0 [facility] Mean corpuscular hemoglobin concentration (MCHC) determinationOrdered By: Serjio Tavares on 05-12-2025 MCHC (RBC) [Mass/Vol] 31.0 g/dL Low 32-36 [facility] Mean platelet volume determi nationOrdered By: Serjio Tavares on 05-12-2025 Platelet mean volume (Bld) [Entitic vol] 8.7 fL 6.2-12.0 [facility] Monocyte percentageOrdered B y: Serjio Tavares on 05-12-2025 Monocytes/100 WBC (Bld) 11.7 % High 0-10 [facility] Neutrophil percentageOrdered By: Serjio Tavares on 05-12-2025 Neutrophils/100 WBC (Bld) 74.6 % High 47-70 [facility] Nucleated red blood cell per centageOrdered By: Serjio Tavares on 05-12-2025 Nucleated RBC/100 WBC (Bld) [Ratio] 0 % 0-5 [facility] Oncology Visit Reporton 08-0 Oncology Visit Report Normal [facility] Ovalocyte detectionOrdered B y: Serjio Tavares on 05-12-2025 Ovalocytes LM Ql (Bld) 1+ [facility] Platelet countOrdered By: Jacki Tavares on 05-12-2025 Platelets (Bld) [#/Vol] 179 10*3/uL 150-450 [facility] Platelet estimateOrdered By: Serjio Tavares on 05-12-2025 Platelets LM Ql (Bld) ADEQUATE ADEQ [facility] Potassium measurement (mass/ volume)Ordered By: Serjio Tavares on 05-12-2025 Potassium (Unsp spec) [Mass/Vol] 3.7 mmol/L 3.3-5.1 [facility] RBC Auto (Bld) [#/Vol]Ordere d By: Serjio Tavares on 05-12-2025 RBC (Bld) [#/Vol] 4.16 10*6/uL Low 4.6-6.2 [facility] Serum creatinine measurement (mass/volume)Ordered By: Serjio Tavares on 05-12-2025 Creatinine [Mass/Vol] 0.70 mg/dL 0.70-1.20 [facility] Serum globulin measurementOr dered By: Serjio Tavares on 05-12-2025 Globulin (S) [Mass/Vol] 4.0 g/dL 2.2-4.2 [facility] Serum glucose measurement (m ass/volume)Ordered By: Serjio Tavares on 05-12-2025 Glucose [Mass/Vol] 98 mg/dL 70-99 [facility] Serum or plasma alanine arroyo otransferase (ALT) measurementOrdered By: Serjio Tavares on 05-12-2025 ALT [Catalytic activity/Vol] 59 U/L High <47 [facility] Serum or plasma albumin bernard urement (mass/volume)Ordered By: Serjio Tavares on 05-12-2025 Albumin [Mass/Vol] 3.4 g/dL Low 3.5-5.0 [facility] Serum or plasma albumin/glob ulin mass ratioOrdered By: Serjio Tavares on 05-12-2025 Albumin/Globulin [Mass ratio] 0.8 {ratio} Low 0.9-2.4 [facility] Serum or plasma alkaline rubio sphatase measurementOrdered By: Serjio Tavares on 05-12-2025 ALP [Catalytic activity/Vol] 490 U/L High 40-129 [facility] Serum or plasma calcium bernard urement (mass/volume)Ordered By: Serjio Tavares on 05-12-2025 Calcium [Mass/Vol] 8.4 mg/dL 7.6-11.0 [facility] Serum or plasma urea nitroge n measurement (mass/volume)Ordered By: Serjio Tavares on 05-12-2025 Urea nitrogen [Mass/Vol] 16 mg/dL 4-19 [facility] Sodium levelOrdered By: Mickey Tavares on 05-12-2025 Sodium [Moles/Vol] 138 mmol/L 133-145 [facility] Total proteinOrdered By: Fito Tavares on 05-12-2025 Protein [Mass/Vol] 7.4 g/dL 5.9-8.4 [facility] White blood cell (WBC) count Ordered By: Serjio Tavares on 05-12-2025 WBC (Bld) [#/Vol] 10.2 10*3/uL 4.4-11.0 [facility] Emergency Department Summary on 04-30-2025 Emergency Department Summary Normal [facility] Absolute lymphocyte countOrd ered By: Trish Ortiz on 04-29-2025 Lymphocytes Auto (Unsp spec) [#/Vol] 0.79 10*3/uL Low 0.83-4.51 [facility] Absolute neutrophil countOrd ered By: Trish Ortiz on 04-29-2025 Neutrophils (Bld) [#/Vol] 7.2 10*3/uL 2.0-7.7 [facility] Anion gap in Serum or Plasma Ordered By: Trish Ortiz on 04-29-2025 Anion gap [Moles/Vol] 10 mmol/L 5-15 [facility] Automated lymphocyte count a s percentage of total leukocytesOrdered By: Trish Ortiz on 04-29-2025 Lymphocytes/100 WBC Auto (Unsp spec) 8.5 % Low 19-41 [facility] BUN/creatinine ratioOrdered By: Trish Ortiz on 04-29-2025 Urea nitrogen/Creatinine [Mass ratio] 26.1 mg/mg High 10-20 [facility] Basophil percentageOrdered B y: Trish Ortiz on 04-29-2025 Basophils/100 WBC (Bld) 0.6 % 0-1 [facility] Bilirubin, totalOrdered By: Trish Ortiz on 04-29-2025 Bilirubin [Mass/Vol] 1.18 mg/dL 0.00-1.30 [facility] CBC W/Diff, Automatedon 04-08 Anisocytosis Ql (Bld) 2+ Normal [facility] Comment on above: Performed By: #### L 100.0100, L501.5200, L500.4050 ####[facility] [address] [place], [address] Carbon dioxide, total [Moles /volume] in Central venous bloodOrdered By: Trish Dukeantonio on 04-29-2025 CO2 [Moles/Vol] 18.4 mmol/L Low 21.0-32.0 [facility] Chloride assayOrdered By: Trent Dukedru on 04-29-2025 Chloride [Moles/Vol] 109 mmol/L High 98-108 [facility] Comprehensive Metabolic Prof ilon 04-29-2025 Albumin [Mass/Vol] 3.4 g/dL Low 3.5-5.0 [facility] Comment on above: Performed By: #### L 100.0100, L501.5200, L500.4050 ####[facility] [address] [place], [address] Albumin/Globulin [Mass ratio] 0.8 {ratio} Low 0.9-2.4 [facility] Comment on above: Performed By: #### L 100.0100, L501.5200, L500.4050 ####[facility] [address] [place], [address] ALK PHOS 593 U/L High 40-129 [facility] Comment on above: Performed By: #### L 100.0100, L501.5200, L500.4050 ####[facility] [address] [place], [address] ALT [Catalytic activity/Vol] 58 U/L High <=46 [facility] Comment on above: Performed By: #### L 100.0100, L501.5200, L500.4050 ####[facility] [address] [place], [address] AST [Catalytic activity/Vol] 69 U/L High <=37 [facility] Comment on above: Performed By: #### L 100.0100, L501.5200, L500.4050 ####[facility] [address] [place], [address] Bilirubin [Mass/Vol] 1.18 mg/dL Normal 0.00-1.30 [facility] Comment on above: Performed By: #### L 100.0100, L501.5200, L500.4050 ####[facility] [address] [place], [address] BUN/CRE 26.1 RATIO High 10-20 [facility] Comment on above: Performed By: #### L 100.0100, L501.5200, L500.4050 ####[facility] [address] [place], [address] Calcium [Mass/Vol] 8.6 mg/dL Normal 7.6-11.0 [facility] Comment on above: Performed By: #### L 100.0100, L501.5200, L500.4050 ####[facility] [address] [place], [address] Chloride [Moles/Vol] 109 mmol/L High 98-108 [facility] Comment on above: Performed By: #### L 100.0100, L501.5200, L500.4050 ####[facility] [address] [place], [address] CO2 [Moles/Vol] 18.4 mmol/L Low 21.0-32.0 [facility] Comment on above: Performed By: #### L 100.0100, L501.5200, L500.4050 ####[facility] [address] [place], [address] Creatinine [Mass/Vol] 0.78 mg/dL Normal 0.70-1.20 [facility] Comment on above: Performed By: #### L 100.0100, L501.5200, L500.4050 ####[facility] [address] [place], [address] ECRCL 127.89 ml/min Normal 50-250 [facility] Comment on above: Performed By: #### L 100.0100, L501.5200, L500.4050 ####[facility] [address] [place], [address] GAP 10 Normal 5-15 [facility] Comment on above: Performed By: #### L 100.0100, L501.5200, L500.4050 ####[facility] [address] [place], [address] GFR/1.73 sq M.predicted among non-blacks MDRD (S/P/Bld) [Vol rate/Area] 105 mL/min/{1.73_m2} Normal >60 [facility] Comment on above: Result Comment: mL/m in/1.73m2 CKD-EPI Creatinine Equation (2020) Performed By: #### L 100.0100, L501.5200, L500.4050 ####[facility] [address] [place], [address] Globulin (S) [Mass/Vol] 4.1 g/dL Normal 2.2-4.2 [facility] Comment on above: Performed By: #### L 100.0100, L501.5200, L500.4050 ####[facility] [address] [place], [address] Glucose [Mass/Vol] 101 mg/dL High 70-99 [facility] Comment on above: Performed By: #### L 100.0100, L501.5200, L500.4050 ####[facility] [address] [place], [address] Potassium [Moles/Vol] 4.2 mmol/L Normal 3.3-5.1 [facility] Comment on above: Performed By: #### L 100.0100, L501.5200, L500.4050 ####[facility] [address] [place], [address] Sodium [Moles/Vol] 137 mmol/L Normal 133-145 [facility] Comment on above: Performed By: #### L 100.0100, L501.5200, L500.4050 ####[facility] [address] [place], [address] T PROT 7.5 g/dL Normal 5.9-8.4 [facility] Comment on above: Performed By: #### L 100.0100, L501.5200, L500.4050 ####[facility] [address] [place], [address] Urea nitrogen [Mass/Vol] 20 mg/dL High 4-19 [facility] Comment on above: Performed By: #### L 100.0100, L501.5200, L500.4050 ####[facility] [address] [place], [address] Eosinophil percentageOrdered By: Trish Ortiz on 04-29-2025 Eosinophils/100 WBC (Bld) 2.2 % 0-5 [facility] Erythrocyte distribution wid th ratioOrdered By: Trish Ortiz on 04-29-2025 Erythrocyte distribution width (RBC) [Ratio] 26.7 % High 11.6-14.6 [facility] Erythrocyte distribution wid th standard deviationOrdered By: Trish Ortiz on 04-29-2025 Erythrocyte distribution width (RBC) [Ratio] 76.5 fl High 35.1-43.9 [facility] Glomerular filtration rate ( GFR) estimation/1.73 sq m using serum, plasma, or whole bOrdered By: [facility] on 04-29-2025 GFR/1.73 sq M.predicted among non-blacks MDRD (S/P/Bld) [Vol rate/Area] 105 mL/min/{1.73_m2} >60 [facility] Comment on above: mL/min/1.73m2 CKD-EP I Creatinine Equation (2020) Hematocrit Auto (Bld) [Volum e fraction]Ordered By: Trish Ortiz on 04-29-2025 Hematocrit (Bld) [Volume fraction] 34.8 % Low 40-54 [facility] Hemoglobin measurementOrdere d By: Trish Ortiz on 04-29-2025 Hemoglobin (Bld) [Mass/Vol] 10.7 g/dL Low 13.0-16.5 [facility] Immature granulocytes/100 WB C Auto (Bld)Ordered By: Trish Ortiz on 04-29-2025 Immature granulocytes/100 WBC (Bld) 0.300 % 0.0-0.9 [facility] Comment on above: IG% - Immature Granu locytes (promyelocytes, myelocytes and metamyelocytes) > 1% indicates that a LEFT SHIFT is Present. Laboratory - Chemistry and C hemistry - challengeOrdered By: Trish Ortiz on 04-29-2025 AST [Catalytic activity/Vol] 69 U/L High <38 [facility] Laboratory - Hematology and Cell countsOrdered By: Trish Ortiz on 04-29-2025 Anisocytosis Ql (Bld) 2+ [facility] MCV (mean corpuscular volume ) determinationOrdered By: Trish Ortiz on 04-29-2025 MCV (RBC) [Entitic vol] 81.1 fL 80-94 [facility] Magnesiumon 04-29-2025 Magnesium [Mass/Vol] 1.7 mg/dL Normal 1.5-2.2 [facility] Comment on above: Performed By: #### L 100.0100, L501.5200, L500.4050 ####[facility] [address] [place], [address] Magnesium measurement (mass/ volume)Ordered By: Trish Ortiz on 04-29-2025 Magnesium (Unsp spec) [Mass/Vol] 1.7 mg/dL 1.5-2.2 [facility] Mean corpuscular hemoglobin (MCH) determinationOrdered By: Trish Ortiz on 04-29-2025 MCH (RBC) [Entitic mass] 24.9 pg Low 27.0-32.0 [facility] Mean corpuscular hemoglobin concentration (MCHC) determinationOrdered By: Trish Ortiz on 04-29-2025 MCHC (RBC) [Mass/Vol] 30.7 g/dL Low 32-36 [facility] Mean platelet volume determi nationOrdered By: Trish Ortiz on 04-29-2025 Platelet mean volume (Bld) [Entitic vol] 9.6 fL 6.2-12.0 [facility] Monocyte percentageOrdered B y: Trish Ortiz on 04-29-2025 Monocytes/100 WBC (Bld) 10.6 % High 0-10 [facility] Neutrophil percentageOrdered By: Trish Ortiz on 04-29-2025 Neutrophils/100 WBC (Bld) 77.8 % High 47-70 [facility] Nucleated red blood cell per centageOrdered By: Trish Ortiz on 04-29-2025 Nucleated RBC/100 WBC (Bld) [Ratio] 0 % 0-5 [facility] Oncology Visit Reporton 04-08 Oncology Visit Report Normal [facility] Phosphoruson 04-29-2025 Phosphate [Mass/Vol] 2.8 mg/dL Normal 2.7-4.5 [facility] Comment on above: Performed By: #### L 501.2300 ####[facility] [address] [place], [place], [id number] Platelet countOrdered By: Trent Ortiz on 04-29-2025 Platelets (Bld) [#/Vol] 189 10*3/uL 150-450 [facility] Potassium measurement (mass/ volume)Ordered By: Trish Ortiz on 04-29-2025 Potassium (Unsp spec) [Mass/Vol] 4.2 mmol/L 3.3-5.1 [facility] RBC Auto (Bld) [#/Vol]Ordere d By: Trish Ortiz on 04-29-2025 RBC (Bld) [#/Vol] 4.29 10*6/uL Low 4.6-6.2 [facility] Serum creatinine measurement (mass/volume)Ordered By: Trish Ortiz on 04-29-2025 Creatinine [Mass/Vol] 0.78 mg/dL 0.70-1.20 [facility] Serum globulin measurementOr dered By: Trish Ortiz on 04-29-2025 Globulin (S) [Mass/Vol] 4.1 g/dL 2.2-4.2 [facility] Serum glucose measurement (m ass/volume)Ordered By: Trish Ortiz on 04-29-2025 Glucose [Mass/Vol] 101 mg/dL High 70-99 [facility] Serum or plasma alanine arroyo otransferase (ALT) measurementOrdered By: Trish Ortiz on 04-29-2025 ALT [Catalytic activity/Vol] 58 U/L High <47 [facility] Serum or plasma albumin bernard urement (mass/volume)Ordered By: Trish Ortiz on 04-29-2025 Albumin [Mass/Vol] 3.4 g/dL Low 3.5-5.0 [facility] Serum or plasma albumin/glob ulin mass ratioOrdered By: Trish Ortiz on 04-29-2025 Albumin/Globulin [Mass ratio] 0.8 {ratio} Low 0.9-2.4 [facility] Serum or plasma alkaline rubio sphatase measurementOrdered By: Trish Ortiz on 04-29-2025 ALP [Catalytic activity/Vol] 593 U/L High 40-129 [facility] Serum or plasma calcium bernard urement (mass/volume)Ordered By: Trish Ortiz on 04-29-2025 Calcium [Mass/Vol] 8.6 mg/dL 7.6-11.0 [facility] Serum or plasma urea nitroge n measurement (mass/volume)Ordered By: Trish Ortiz on 04-29-2025 Urea nitrogen [Mass/Vol] 20 mg/dL High 4-19 [facility] Sodium levelOrdered By: Mala Ortiz on 04-29-2025 Sodium [Moles/Vol] 137 mmol/L 133-145 [facility] Total proteinOrdered By: Luciano Ortiz on 04-29-2025 Protein [Mass/Vol] 7.5 g/dL 5.9-8.4 [facility] White blood cell (WBC) count Ordered By: Trish Ortiz on 04-29-2025 WBC (Bld) [#/Vol] 9.3 10*3/uL 4.4-11.0 [facility] Absolute lymphocyte countOrd ered By: Trish Ortiz on 04-21-2025 Lymphocytes Auto (Unsp spec) [#/Vol] 0.89 10*3/uL 0.83-4.51 [facility] Absolute neutrophil countOrd ered By: Trish Ortiz on 04-21-2025 Neutrophils (Bld) [#/Vol] 4.0 10*3/uL 2.0-7.7 [facility] Anion gap in Serum or Plasma Ordered By: Trish Ortiz on 04-21-2025 Anion gap [Moles/Vol] 8 mmol/L 5-15 [facility] Automated lymphocyte count a s percentage of total leukocytesOrdered By: Trish Ortiz on 04-21-2025 Lymphocytes/100 WBC Auto (Unsp spec) 16.1 % Low 19-41 [facility] BUN/creatinine ratioOrdered By: Trish Ortiz on 04-21-2025 Urea nitrogen/Creatinine [Mass ratio] 24.3 mg/mg High 10-20 [facility] Basic Metabolic Profile (BMP )on 04-21-2025 BUN/CRE 24.3 RATIO High 10-20 [facility] Comment on above: Performed By: #### L 501.2300, L500.2500, L501.5200, L100.0100 ####[facility] [address] [place], [address] Calcium [Mass/Vol] 8.4 mg/dL Normal 7.6-11.0 [facility] Comment on above: Performed By: #### L 501.2300, L500.2500, L501.5200, L100.0100 ####[facility] [address] [place], [address] Chloride [Moles/Vol] 104 mmol/L Normal 98-108 [facility] Comment on above: Performed By: #### L 501.2300, L500.2500, L501.5200, L100.0100 ####[facility] [address] [place], [address] CO2 [Moles/Vol] 23.1 mmol/L Normal 21.0-32.0 [facility] Comment on above: Performed By: #### L 501.2300, L500.2500, L501.5200, L100.0100 ####[facility] [address] [place], [address] Creatinine [Mass/Vol] 0.68 mg/dL Low 0.70-1.20 [facility] Comment on above: Performed By: #### L 501.2300, L500.2500, L501.5200, L100.0100 ####[facility] [address] [place], [address] ECRCL 146.70 ml/min Normal 50-250 [facility] Comment on above: Performed By: #### L 501.2300, L500.2500, L501.5200, L100.0100 ####[facility] [address] [place], [address] GAP 8 Normal 5-15 [facility] Comment on above: Performed By: #### L 501.2300, L500.2500, L501.5200, L100.0100 ####[facility] [address] [place], [address] GFR/1.73 sq M.predicted among non-blacks MDRD (S/P/Bld) [Vol rate/Area] 110 mL/min/{1.73_m2} Normal >60 [facility] Comment on above: Result Comment: mL/m in/1.73m2 CKD-EPI Creatinine Equation (2020) Performed By: #### L 501.2300, L500.2500, L501.5200, L100.0100 ####[facility] [address] [place], [address] Glucose [Mass/Vol] 96 mg/dL Normal 70-99 [facility] Comment on above: Performed By: #### L 501.2300, L500.2500, L501.5200, L100.0100 ####[facility] [address] [place], [address] Potassium [Moles/Vol] 3.8 mmol/L Normal 3.3-5.1 [facility] Comment on above: Performed By: #### L 501.2300, L500.2500, L501.5200, L100.0100 ####[facility] [address] [place], [address] Sodium [Moles/Vol] 135 mmol/L Normal 133-145 [facility] Comment on above: Performed By: #### L 501.2300, L500.2500, L501.5200, L100.0100 ####[facility] [address] [place], [address] Urea nitrogen [Mass/Vol] 17 mg/dL Normal 4-19 [facility] Comment on above: Performed By: #### L 501.2300, L500.2500, L501.5200, L100.0100 ####[facility] [address] [place], [address] Basophil percentageOrdered B y: Trish Ortiz on 04-21-2025 Basophils/100 WBC (Bld) 0.4 % 0-1 [facility] CBC W/Diff, Automatedon 07- Anisocytosis Ql (Bld) 2+ Normal [facility] Comment on above: Performed By: #### L 501.2300, L500.2500, L501.5200, L100.0100 ####[facility] [address] [place], [address] MACROCYTOSIS 1+ Normal [facility] Comment on above: Performed By: #### L 501.2300, L500.2500, L501.5200, L100.0100 ####[facility] [address] [place], [address] OVALOCYTE 1+ Normal [facility] Comment on above: Performed By: #### L 501.2300, L500.2500, L501.5200, L100.0100 ####[facility] [address] [place], [address] PLT EST A Normal ADEQ [facility] Comment on above: Performed By: #### L 501.2300, L500.2500, L501.5200, L100.0100 ####[facility] [address] [place], [address] Carbon dioxide, total [Moles /volume] in Central venous bloodOrdered By: Trish Ortiz on 04-21-2025 CO2 [Moles/Vol] 23.1 mmol/L 21.0-32.0 [facility] Chloride assayOrdered By: Trent Ortiz on 04-21-2025 Chloride [Moles/Vol] 104 mmol/L 98-108 [facility] Eosinophil percentageOrdered By: Trish Ortiz on 04-21-2025 Eosinophils/100 WBC (Bld) 1.1 % 0-5 [facility] Erythrocyte distribution wid th ratioOrdered By: Trish Ortiz on 04-21-2025 Erythrocyte distribution width (RBC) [Ratio] 25.2 % High 11.6-14.6 [facility] Erythrocyte distribution wid th standard deviationOrdered By: Trish Ortiz on 04-21-2025 Erythrocyte distribution width (RBC) [Ratio] 68.4 fl High 35.1-43.9 [facility] Glomerular filtration rate ( GFR) estimation/1.73 sq m using serum, plasma, or whole bOrdered By: Trish Ortiz on 04-21-2025 GFR/1.73 sq M.predicted among non-blacks MDRD (S/P/Bld) [Vol rate/Area] 110 mL/min/{1.73_m2} >60 [facility] Comment on above: mL/min/1.73m2 CKD-EP I Creatinine Equation (2020) Hematocrit Auto (Bld) [Volum e fraction]Ordered By: Trish Ortiz on 04-21-2025 Hematocrit (Bld) [Volume fraction] 33.4 % Low 40-54 [facility] Hemoglobin measurementOrdere d By: Trish Ortiz on 04-21-2025 Hemoglobin (Bld) [Mass/Vol] 10.3 g/dL Low 13.0-16.5 [facility] Immature granulocytes/100 WB C Auto (Bld)Ordered By: Trish Ortiz 04-21-2025 Immature granulocytes/100 WBC (Bld) 0.400 % 0.0-0.9 [facility] Comment on above: IG% - Immature Granu locytes (promyelocytes, myelocytes and metamyelocytes) > 1% indicates that a LEFT SHIFT is Present. Laboratory - Hematology and Cell countsOrdered By: Trish Ortiz on 04-21-2025 Anisocytosis Ql (Bld) 2+ [facility] MCV (mean corpuscular volume ) determinationOrdered By: Trish Ortiz on 04-21-2025 MCV (RBC) [Entitic vol] 77.9 fL Low 80-94 [facility] Macrocytes detectionOrdered By: Trish Ortiz on 04-21-2025 Macrocytes Ql (Bld) 1+ [facility] Magn[facility] 04-21-2025 Magnesium [Mass/Vol] 1.6 mg/dL Normal 1.5-2.2 [facility] Comment on above: Performed By: #### L 501.2300, L500.2500, L501.5200, L100.0100 ####[facility] [address] [place], [place], [id number] Magnesium measurement (mass/ volume)Ordered By: Trish Ortiz on 04-21-2025 Magnesium (Unsp spec) [Mass/Vol] 1.6 mg/dL 1.5-2.2 [facility] Mean corpuscular hemoglobin (MCH) determinationOrdered By: Trish Ortiz on 04-21-2025 MCH (RBC) [Entitic mass] 24.0 pg Low 27.0-32.0 [facility] Mean corpuscular hemoglobin concentration (MCHC) determinationOrdered By: Trish Ortiz on 04-21-2025 MCHC (RBC) [Mass/Vol] 30.8 g/dL Low 32-36 [facility] Mean platelet volume determi nationOrdered By: Trish Ortiz on 04-21-2025 Platelet mean volume (Bld) [Entitic vol] 9.4 fL 6.2-12.0 [facility] Monocyte percentageOrdered B y: Trish Ortiz on 04-21-2025 Monocytes/100 WBC (Bld) 10.1 % High 0-10 [facility] Neutrophil percentageOrdered By: [facility] on 04-21-2025 Neutrophils/100 WBC (Bld) 71.9 % High 47-70 [facility] Nucleated red blood cell per centageOrdered By: [facility] on 04-21-2025 Nucleated RBC/100 WBC (Bld) [Ratio] 0 % 0-5 [facility] Oncology Visit Reporton 04-07 Oncology Visit Report Normal [facility] Ovalocyte detectionOrdered B y: Trish Ortiz on 04-21-2025 Ovalocytes LM Ql (Bld) 1+ [facility] Phosphoruson 04-21-2025 Phosphate [Mass/Vol] 2.5 mg/dL Low 2.7-4.5 [facility] Comment on above: Performed By: #### L 501.2300, L500.2500, L501.5200, L100.0100 ####[facility] [address] [place], [address] Platelet countOrdered By: Trent Ortiz on 04-21-2025 Platelets (Bld) [#/Vol] 248 10*3/uL 150-450 [facility] Platelet estimateOrdered By: Trish Ortzi on 04-21-2025 Platelets LM Ql (Bld) A ADEQ [facility] Potassium measurement (mass/ volume)Ordered By: Trish Ortiz on 04-21-2025 Potassium (Unsp spec) [Mass/Vol] 3.8 mmol/L 3.3-5.1 [facility] RBC Auto (Bld) [#/Vol]Ordere d By: Trish Ortiz on 04-21-2025 RBC (Bld) [#/Vol] 4.29 10*6/uL Low 4.6-6.2 [facility] Serum creatinine measurement (mass/volume)Ordered By: Trish Ortiz on 04-21-2025 Creatinine [Mass/Vol] 0.68 mg/dL Low 0.70-1.20 [facility] Serum glucose measurement (m ass/volume)Ordered By: Trish Ortiz on 04-21-2025 Glucose [Mass/Vol] 96 mg/dL 70-99 [facility] Serum or plasma calcium bernard urement (mass/volume)Ordered By: Trish Ortiz on 04-21-2025 Calcium [Mass/Vol] 8.4 mg/dL 7.6-11.0 [facility] Serum or plasma urea nitroge n measurement (mass/volume)Ordered By: Trish Ortiz on 04-21-2025 Urea nitrogen [Mass/Vol] 17 mg/dL 4-19 [facility] Sodium levelOrdered By: Mala Ortiz on 04-21-2025 Sodium [Moles/Vol] 135 mmol/L 133-145 [facility] White blood cell (WBC) count Ordered By: [facility] on 04-21-2025 WBC (Bld) [#/Vol] 5.5 10*3/uL 4.4-11.0 [facility] Absolute lymphocyte countOrd ered By: [facility] Diana on 04-15-2025 Lymphocytes Auto (Unsp spec) [#/Vol] 1.01 10*3/uL 0.83-4.51 [facility] Absolute neutrophil countOrd ered By: [facility] Diana on 04-15-2025 Neutrophils (Bld) [#/Vol] 7.2 10*3/uL 2.0-7.7 [facility] Anion gap in Serum or Plasma Ordered By: [facility] on 04-15-2025 Anion gap [Moles/Vol] 9 mmol/L 5-15 [facility] Automated lymphocyte count a s percentage of total leukocytesOrdered By: [facility] Diana on 04-15-2025 Lymphocytes/100 WBC Auto (Unsp spec) 10.5 % Low 19-41 [facility] BUN/creatinine ratioOrdered By: [facility] Diana on 04-15-2025 Urea nitrogen/Creatinine [Mass ratio] 41.0 mg/mg High 10-20 [facility] Basophil percentageOrdered B y: Trish Ortiz on 04-15-2025 Basophils/100 WBC (Bld) 0.5 % 0-1 [facility] Bilirubin, totalOrdered By: [facility] Diana on 04-15-2025 Bilirubin [Mass/Vol] 1.09 mg/dL 0.00-1.30 [facility] CBC W/Diff, Automatedon -0 Anisocytosis Ql (Bld) 1+ Normal [facility] Comment on above: Performed By: #### L 500.4050, L100.0100, L501.5200 ####[facility] [address] [place], [address] Carbon dioxide, total [Moles /volume] in Central venous bloodOrdered By: [facility] on 04-15-2025 CO2 [Moles/Vol] 18.5 mmol/L Low 21.0-32.0 [facility] Chloride assayOrdered By: Trent Ortiz on 04-15-2025 Chloride [Moles/Vol] 110 mmol/L High 98-108 [facility] Comprehensive Metabolic Prof ilon 04-15-2025 Albumin [Mass/Vol] 3.3 g/dL Low 3.5-5.0 [facility] Comment on above: Performed By: #### L 500.4050, L100.0100, L501.5200 ####[facility] [address] [place], [address] Albumin/Globulin [Mass ratio] 0.8 {ratio} Low 0.9-2.4 [facility] Comment on above: Performed By: #### L 500.4050, L100.0100, L501.5200 ####[facility] [address] [place], [address] ALK PHOS 569 U/L High 40-129 [facility] Comment on above: Performed By: #### L 500.4050, L100.0100, L501.5200 ####[facility] [address] [place], [address] ALT [Catalytic activity/Vol] 59 U/L High <=46 [facility] Comment on above: Performed By: #### L 500.4050, L100.0100, L501.5200 ####[facility] [address] [place], [address] AST [Catalytic activity/Vol] 65 U/L High <=37 [facility] Comment on above: Performed By: #### L 500.4050, L100.0100, L501.5200 ####[facility] [address] [place], [address] Bilirubin [Mass/Vol] 1.09 mg/dL Normal 0.00-1.30 [facility] Comment on above: Performed By: #### L 500.4050, L100.0100, L501.5200 ####[facility] [address] [place], [address] BUN/CRE 41.0 RATIO High 10-20 [facility] Comment on above: Performed By: #### L 500.4050, L100.0100, L501.5200 ####[facility] [address] [place], [address] Calcium [Mass/Vol] 8.6 mg/dL Normal 7.6-11.0 [facility] Comment on above: Performed By: #### L 500.4050, L100.0100, L501.5200 ####[facility] [address] [place], [address] Chloride [Moles/Vol] 110 mmol/L High 98-108 [facility] Comment on above: Performed By: #### L 500.4050, L100.0100, L501.5200 ####[facility] [address] [place], [address] CO2 [Moles/Vol] 18.5 mmol/L Low 21.0-32.0 [facility] [facility] Comment on above: Performed By: #### L 500.4050, L100.0100, L501.5200 ####[facility] [address] [place], [address] Creatinine [Mass/Vol] 0.72 mg/dL Normal 0.70-1.20 [facility] Comment on above: Performed By: #### L 500.4050, L100.0100, L501.5200 ####[facility] [address] [place], [address] ECRCL 138.55 ml/min Normal 50-250 [facility] Comment on above: Performed By: #### L 500.4050, L100.0100, L501.5200 ####[facility] [address] [place], [address] GAP 9 Normal 5-15 [facility] Comment on above: Performed By: #### L 500.4050, L100.0100, L501.5200 ####[facility] [address] [place], [address] GFR/1.73 sq M.predicted among non-blacks MDRD (S/P/Bld) [Vol rate/Area] 108 mL/min/{1.73_m2} Normal >60 [facility] Comment on above: Result Comment: mL/m in/1.73m2 CKD-EPI Creatinine Equation (2020) Performed By: #### L 500.4050, L100.0100, L501.5200 ####[facility] [address] [place], [address] Globulin (S) [Mass/Vol] 4.3 g/dL High 2.2-4.2 [facility] Comment on above: Performed By: #### L 500.4050, L100.0100, L501.5200 ####[facility] [address] [place], [address] Glucose [Mass/Vol] 116 mg/dL High 70-99 [facility] Comment on above: Performed By: #### L 500.4050, L100.0100, L501.5200 ####[facility] [address] [place], [address] Potassium [Moles/Vol] 4.3 mmol/L Normal 3.3-5.1 [facility] Comment on above: Performed By: #### L 500.4050, L100.0100, L501.5200 ####[facility] [address] [place], [address] Sodium [Moles/Vol] 137 mmol/L Normal 133-145 [facility] Comment on above: Performed By: #### L 500.4050, L100.0100, L501.5200 ####[facility] [address] [place], [address] T PROT 7.6 g/dL Normal 5.9-8.4 [facility] Comment on above: Performed By: #### L 500.4050, L100.0100, L501.5200 ####[facility] [address] [place], [address] Urea nitrogen [Mass/Vol] 29 mg/dL High 4-19 [facility] Comment on above: Performed By: #### L 500.4050, L100.0100, L501.5200 ####[facility] [address] [place], [place], [address] Eosinophil percentageOrdered By: Trish Ortiz on 04-15-2025 Eosinophils/100 WBC (Bld) 1.8 % 0-5 [facility] Erythrocyte distribution wid th ratioOrdered By: [facility] Diana on 04-15-2025 Erythrocyte distribution width (RBC) [Ratio] 24.2 % High 11.6-14.6 [facility] Erythrocyte distribution wid th standard deviationOrdered By: [facility] on 04-15-2025 Erythrocyte distribution width (RBC) [Ratio] 65.6 fl High 35.1-43.9 [facility] Ferritinon 04-15-2025 Ferritin [Mass/Vol] 95 ng/mL Normal 37-417 [facility] Comment on above: Performed By: #### L 503.6030, L501.2300, L503.6550 ####[facility] [address] [place], [place], [address] Glomerular filtration rate ( GFR) estimation/1.73 sq m using serum, plasma, or whole bOrdered By: Trish Ortiz on 04-15-2025 GFR/1.73 sq M.predicted among non-blacks MDRD (S/P/Bld) [Vol rate/Area] 108 mL/min/{1.73_m2} >60 [facility] Comment on above: mL/min/1.73m2 CKD-EP I Creatinine Equation (2020) Hematocrit Auto (Bld) [Volum e fraction]Ordered By: Trish Ortiz on 04-15-2025 Hematocrit (Bld) [Volume fraction] 33.0 % Low 40-54 [facility] Hemoglobin measurementOrdere d By: Trish Ortiz on 04-15-2025 Hemoglobin (Bld) [Mass/Vol] 10.0 g/dL Low 13.0-16.5 [facility] Immature granulocytes/100 WB C Auto (Bld)Ordered By: [facility] on 04-15-2025 Immature granulocytes/100 WBC (Bld) 0.500 % 0.0-0.9 [facility] Comment on above: IG% - Immature Granu locytes (promyelocytes, myelocytes and metamyelocytes) > 1% indicates that a LEFT SHIFT is Present. Iron measurement (mass/mass) Ordered By: Trish Ortiz on 04-15-2025 Iron (Unsp spec) [Mass/Mass] 29 ug/dL Low 65-175 [facility] Iron+Iron Binding Capacityon 04-15-2025 Iron [Mass/Vol] 29 ug/dL Low 65-175 [facility] Comment on above: Performed By: #### L 503.6030, L501.2300, L503.6550 ####[facility] [address] [place], [address] IRON SATURATION 9.0 Normal 9-55 [facility] Comment on above: Performed By: #### L 503.6030, L501.2300, L503.6550 ####[facility] [address] [place], [address] TIBC 335 ug/dL Normal 250-450 [facility] Comment on above: Performed By: #### L 503.6030, L501.2300, L503.6550 ####[facility] [address] [place], [address] UIBC 306 ug/dL Normal 228-428 [facility] Comment on above: Performed By: #### L 503.6030, L501.2300, L503.6550 ####[facility] [address] [place], [place], [address] Laboratory - Chemistry and C hemistry - challengeOrdered By: Trish Ortiz on 04-15-2025 AST [Catalytic activity/Vol] 65 U/L High <38 [facility] Laboratory - Hematology and Cell countsOrdered By: Trish Ortiz on 04-15-2025 Anisocytosis Ql (Bld) 1+ [facility] MCV (mean corpuscular volume ) determinationOrdered By: Trish Ortiz on 04-15-2025 MCV (RBC) [Entitic vol] 78.2 fL Low 80-94 [facility] Magnesiumon 04-15-2025 Magnesium [Mass/Vol] 1.7 mg/dL Normal 1.5-2.2 [facility] Comment on above: Performed By: #### L 500.4050, L100.0100, L501.5200 ####[facility] [address] [place], [place], [address] Magnesium measurement (mass/ volume)Ordered By: Trish Ortiz on 04-15-2025 Magnesium (Unsp spec) [Mass/Vol] 1.7 mg/dL 1.5-2.2 [facility] Mean corpuscular hemoglobin (MCH) determinationOrdered By: Trish Ortiz on 04-15-2025 MCH (RBC) [Entitic mass] 23.7 pg Low 27.0-32.0 [facility] Mean corpuscular hemoglobin concentration (MCHC) determinationOrdered By: Trish Ortiz on 04-15-2025 MCHC (RBC) [Mass/Vol] 30.3 g/dL Low 32-36 [facility] Mean platelet volume determi nationOrdered By: Trish Ortiz on 04-15-2025 Platelet mean volume (Bld) [Entitic vol] 9.7 fL 6.2-12.0 [facility] Monocyte percentageOrdered B y: Trish Ortiz on 04-15-2025 Monocytes/100 WBC (Bld) 12.1 % High 0-10 [facility] Neutrophil percentageOrdered By: Trish Ortiz on 04-15-2025 Neutrophils/100 WBC (Bld) 74.6 % High 47-70 [facility] No Panel InformationOrdered By: Trish Ortiz on 04-15-2025 Unsaturated Iron Binding Capacity 306 ug/dL 228-428 [facility] Nucleated red blood cell per centageOrdered By: Trish Ortiz on 04-15-2025 Nucleated RBC/100 WBC (Bld) [Ratio] 0 % 0-5 [facility] Oncology Visit Reporton 07 Oncology Visit Report Normal [facility] Phosphoruson 04-15-2025 Phosphate [Mass/Vol] 3.3 mg/dL Normal 2.7-4.5 [facility] Comment on above: Performed By: #### L 503.6030, L501.2300, L503.6550 ####[facility] [address] [place], [address] Platelet countOrdered By: Trent Ortiz on 04-15-2025 Platelets (Bld) [#/Vol] 229 10*3/uL 150-450 [facility] Potassium measurement (mass/ volume)Ordered By: Trish Ortiz on 04-15-2025 Potassium (Unsp spec) [Mass/Vol] 4.3 mmol/L 3.3-5.1 [facility] RBC Auto (Bld) [#/Vol]Ordere d By: Trish Ortiz on 04-15-2025 RBC (Bld) [#/Vol] 4.22 10*6/uL Low 4.6-6.2 [facility] Serum creatinine measurement (mass/volume)Ordered By: Trish Ortiz on 04-15-2025 Creatinine [Mass/Vol] 0.72 mg/dL 0.70-1.20 [facility] Serum globulin measurementOr dered By: Trish Ortiz on 04-15-2025 Globulin (S) [Mass/Vol] 4.3 g/dL High 2.2-4.2 [facility] Serum glucose measurement (m ass/volume)Ordered By: Trish Ortiz on 04-15-2025 Glucose [Mass/Vol] 116 mg/dL High 70-99 [facility] Serum or plasma alanine arroyo otransferase (ALT) measurementOrdered By: Trish Ortiz on 04-15-2025 ALT [Catalytic activity/Vol] 59 U/L High <47 [facility] Serum or plasma albumin bernard urement (mass/volume)Ordered By: Trish Ortiz on 04-15-2025 Albumin [Mass/Vol] 3.3 g/dL Low 3.5-5.0 [facility] Serum or plasma albumin/glob ulin mass ratioOrdered By: Trish Ortiz on 04-15-2025 Albumin/Globulin [Mass ratio] 0.8 {ratio} Low 0.9-2.4 [facility] Serum or plasma alkaline rubio sphatase measurementOrdered By: Trish Ortiz on 04-15-2025 ALP [Catalytic activity/Vol] 569 U/L High 40-129 [facility] Serum or plasma calcium bernard urement (mass/volume)Ordered By: Trish Ortiz on 04-15-2025 Calcium [Mass/Vol] 8.6 mg/dL 7.6-11.0 [facility] Serum or plasma ferritin filippo surement (mass/volume)Ordered By: Trish Ortiz on 04-15-2025 Ferritin [Mass/Vol] 95 ng/mL 37-417 [facility] Serum or plasma iron saturat ion measurement (mass fraction)Ordered By: Trish Ortiz on 04-15-2025 Iron saturation [Mass fraction] 9.0 % 9-55 [facility] Serum or plasma urea nitroge n measurement (mass/volume)Ordered By: Trish Ortiz on 04-15-2025 Urea nitrogen [Mass/Vol] 29 mg/dL High 4-19 [facility] Sodium levelOrdered By: Mala Ortiz on 04-15-2025 Sodium [Moles/Vol] 137 mmol/L 133-145 [facility] Total proteinOrdered By: Luciano Ortiz on 04-15-2025 Protein [Mass/Vol] 7.6 g/dL 5.9-8.4 [facility] White blood cell (WBC) count Ordered By: Trish Ortiz on 04-15-2025 WBC (Bld) [#/Vol] 9.6 10*3/uL 4.4-11.0 [facility] Cardiology Visit Reporton Cardiology Visit Report Normal [facility] CBC W/Diff, Automatedon 06-2 Absolute Neut Normal 2.0-7.7 [facility] Comment on above: Result Comment: NO S PECIMENS COLLECTED Performed By: #### L 500.4050, L100.0100 ####[facility] [address] [place], [address] HCT Normal 40-54 [facility] Comment on above: Result Comment: NO S PECIMENS COLLECTED Performed By: #### L 500.4050, L100.0100 ####[facility] [address] [place], [address] HGB Normal 13.0-16.5 [facility] Comment on above: Result Comment: NO S PECIMENS COLLECTED Performed By: #### L 500.4050, L100.0100 ####[facility] [address] [place], [address] MCH Normal 27.0-32.0 [facility] Comment on above: Result Comment: NO S PECIMENS COLLECTED Performed By: #### L 500.4050, L100.0100 ####[facility] [address] [place], [address] MCHC Normal 32-36 [facility] Comment on above: Result Comment: NO S PECIMENS COLLECTED Performed By: #### L 500.4050, L100.0100 ####[facility] [address] [place], [address] MCV Normal 80-94 [facility] Comment on above: Result Comment: NO S PECIMENS COLLECTED Performed By: #### L 500.4050, L100.0100 ####[facility] [address] [place], [address] NEUT% Normal 47-70 [facility] Comment on above: Result Comment: NO S PECIMENS COLLECTED Performed By: #### L 500.4050, L100.0100 ####[facility] [address] [place], [address] PLT Normal 150-450 [facility] Comment on above: Result Comment: NO S PECIMENS COLLECTED Performed By: #### L 500.4050, L100.0100 ####[facility] [address] [place], [address] RBC Normal 4.6-6.2 [facility] Comment on above: Result Comment: NO S PECIMENS COLLECTED Performed By: #### L 500.4050, L100.0100 ####[facility] [address] [place], [address] RDW CV Normal 11.6-14.6 [facility] Comment on above: Result Comment: NO S PECIMENS COLLECTED Performed By: #### L 500.4050, L100.0100 ####[facility] [address] [place], [address] RDW SD Normal 35.1-43.9 [facility] Comment on above: Result Comment: NO S PECIMENS COLLECTED Performed By: #### L 500.4050, L100.0100 ####[facility] [address] [place], [address] WBC Normal 4.4-11.0 [facility] Comment on above: Result Comment: NO S PECIMENS COLLECTED Performed By: #### L 500.4050, L100.0100 ####[facility] [address] [place], [address] Comprehensive Metabolic Prof iljob 04-01-2025 ALB Normal 3.5-5.0 [facility] Comment on above: Result Comment: NO S PECIMENS COLLECTED Performed By: #### L 500.4050, L100.0100 ####[facility] [address] [place], [address] ALK PHOS Normal 40-129 [facility] Comment on above: Result Comment: NO S PECIMENS COLLECTED Performed By: #### L 500.4050, L100.0100 ####[facility] [address] [place], [address] ALT Normal <=46 [facility] Comment on above: Result Comment: NO S PECIMENS COLLECTED Performed By: #### L 500.4050, L100.0100 ####[facility] [address] [place], [address] AST Normal <=37 [facility] Comment on above: Result Comment: NO S PECIMENS COLLECTED Performed By: #### L 500.4050, L100.0100 ####[facility] [address] [place], [address] BUN Normal 4-19 [facility] Comment on above: Result Comment: NO S PECIMENS COLLECTED Performed By: #### L 500.4050, L100.0100 ####[facility] [address] [place], [address] BUN/CRE Normal 10-20 [facility] Comment on above: Result Comment: NO S PECIMENS COLLECTED Performed By: #### L 500.4050, L100.0100 ####[facility] [address] [place], [address] Calcium Normal 7.6-11.0 [facility] Comment on above: Result Comment: NO S PECIMENS COLLECTED Performed By: #### L 500.4050, L100.0100 ####[facility] [address] [place], [address] CL Normal 98-108 [facility] Comment on above: Result Comment: NO S PECIMENS COLLECTED Performed By: #### L 500.4050, L100.0100 ####[facility] [address] [place], [address] CO2 Normal 21.0-32.0 [facility] Comment on above: Result Comment: NO S PECIMENS COLLECTED Performed By: #### L 500.4050, L100.0100 ####[facility] [address] [place], [address] CREAT,SERUM Normal 0.70-1.20 [facility] Comment on above: Result Comment: NO S PECIMENS COLLECTED Performed By: #### L 500.4050, L100.0100 ####[facility] [address] [place], [address] eGFR Normal >60 [facility] Comment on above: Result Comment: NO S PECIMENS COLLECTED Performed By: #### L 500.4050, L100.0100 ####[facility] [address] [place], [address] GAP Normal 5-15 [facility] Comment on above: Result Comment: NO S PECIMENS COLLECTED Performed By: #### L 500.4050, L100.0100 ####[facility] [address] [place], [address] GLU Normal 70-99 [facility] Comment on above: Result Comment: NO S PECIMENS COLLECTED Performed By: #### L 500.4050, L100.0100 ####[facility] [address] [place], [address] Potassium Normal 3.3-5.1 [facility] Comment on above: Result Comment: NO S PECIMENS COLLECTED Performed By: #### L 500.4050, L100.0100 ####[facility] [address] [place], [address] T BILI Normal 0.00-1.30 [facility] Comment on above: Result Comment: NO S PECIMENS COLLECTED Performed By: #### L 500.4050, L100.0100 ####[facility] [address] [place], [address] T PROT Normal 5.9-8.4 [facility] Comment on above: Result Comment: NO S PECIMENS COLLECTED Performed By: #### L 500.4050, L100.0100 ####[facility] [address] [place], [address] Comprehensive Metabolic Profil Normal 133-145 [facility] Comment on above: Result Comment: NO S PECIMENS COLLECTED Performed By: #### L 500.4050, L100.0100 ####[facility] [address] [place], [address] Absolute lymphocyte countOrd ered By: Trish Ortiz on 03-31-2025 Lymphocytes Auto (Unsp spec) [#/Vol] 0.84 10*3/uL 0.83-4.51 [facility] Absolute neutrophil countOrd ered By: Trish Ortiz on 03-31-2025 Neutrophils (Bld) [#/Vol] 7.5 10*3/uL 2.0-7.7 [facility] Anion gap in Serum or Plasma Ordered By: Trish Ortiz on 03-31-2025 Anion gap [Moles/Vol] 11 mmol/L 5-15 [facility] Automated lymphocyte count a s percentage of total leukocytesOrdered By: Trish Ortiz on 03-31-2025 Lymphocytes/100 WBC Auto (Unsp spec) 8.1 % Low 19-41 [facility] BUN/creatinine ratioOrdered By: Trish Ortiz on 03-31-2025 Urea nitrogen/Creatinine [Mass ratio] 20.5 mg/mg High 10-20 [facility] Basophil percentageOrdered B y: Trish Ortiz on 03-31-2025 Basophils/100 WBC (Bld) 0.5 % 0-1 [facility] Bilirubin, totalOrdered By: Trish Ortiz on 03-31-2025 Bilirubin [Mass/Vol] 1.18 mg/dL 0.00-1.30 [facility] CBC W/Diff, Automatedon 03-09 Anisocytosis Ql (Bld) 1+ Normal [facility] Comment on above: Performed By: #### L 501.5200, L100.0100, L500.4050, L501.2300 ####[facility] [address] [place], [address] Carbon dioxide, total [Moles /volume] in Central venous bloodOrdered By: Trish Ortiz on 03-31-2025 CO2 [Moles/Vol] 19.5 mmol/L Low 21.0-32.0 [facility] Chloride assayOrdered By: Trent Ortiz on 03-31-2025 Chloride [Moles/Vol] 106 mmol/L 98-108 [facility] Comprehensive Metabolic Prof ilon 03-31-2025 Albumin [Mass/Vol] 3.3 g/dL Low 3.5-5.0 [facility] Comment on above: Performed By: #### L 501.5200, L100.0100, L500.4050, L501.2300 ####[facility] [address] [place], [address] Albumin/Globulin [Mass ratio] 0.8 {ratio} Low 0.9-2.4 [facility] Comment on above: Performed By: #### L 501.5200, L100.0100, L500.4050, L501.2300 ####[facility] [address] [place], [address] ALK PHOS 543 U/L High 40-129 [facility] Comment on above: Performed By: #### L 501.5200, L100.0100, L500.4050, L501.2300 ####[facility] [address] [place], [address] ALT [Catalytic activity/Vol] 39 U/L Normal <=46 [facility] Comment on above: Performed By: #### L 501.5200, L100.0100, L500.4050, L501.2300 ####[facility] [address] [place], [address] AST [Catalytic activity/Vol] 51 U/L High <=37 [facility] Comment on above: Performed By: #### L 501.5200, L100.0100, L500.4050, L501.2300 ####[facility] [address] [place], [address] Bilirubin [Mass/Vol] 1.18 mg/dL Normal 0.00-1.30 [facility] Comment on above: Performed By: #### L 501.5200, L100.0100, L500.4050, L501.2300 ####[facility] [address] [place], [address] BUN/CRE 20.5 RATIO High 10-20 [facility] Comment on above: Performed By: #### L 501.5200, L100.0100, L500.4050, L501.2300 ####[facility] [address] [place], [address] Calcium [Mass/Vol] 8.5 mg/dL Normal 7.6-11.0 [facility] Comment on above: Performed By: #### L 501.5200, L100.0100, L500.4050, L501.2300 ####[facility] [address] [place], [address] Chloride [Moles/Vol] 106 mmol/L Normal 98-108 [facility] Comment on above: Performed By: #### L 501.5200, L100.0100, L500.4050, L501.2300 ####[facility] [address] [place], [address] CO2 [Moles/Vol] 19.5 mmol/L Low 21.0-32.0 [facility] Comment on above: Performed By: #### L 501.5200, L100.0100, L500.4050, L501.2300 ####[facility] [address] [place], [address] Creatinine [Mass/Vol] 0.76 mg/dL Normal 0.70-1.20 [facility] Comment on above: Performed By: #### L 501.5200, L100.0100, L500.4050, L501.2300 ####[facility] [address] [place], [address] ECRCL 131.26 ml/min Normal 50-250 [facility] Comment on above: Performed By: #### L 501.5200, L100.0100, L500.4050, L501.2300 ####[facility] [address] [place], [address] GAP 11 Normal 5-15 [facility] Comment on above: Performed By: #### L 501.5200, L100.0100, L500.4050, L501.2300 ####[facility] [address] [place], [address] GFR/1.73 sq M.predicted among non-blacks MDRD (S/P/Bld) [Vol rate/Area] 106 mL/min/{1.73_m2} Normal >60 [facility] Comment on above: Result Comment: mL/m in/1.73m2 CKD-EPI Creatinine Equation (2020) Performed By: #### L 501.5200, L100.0100, L500.4050, L501.2300 ####[facility] [address] [place], [address] Globulin (S) [Mass/Vol] 4.2 g/dL Normal 2.2-4.2 [facility] Comment on above: Performed By: #### L 501.5200, L100.0100, L500.4050, L501.2300 ####[facility] [address] [place], [address] Glucose [Mass/Vol] 124 mg/dL High 70-99 [facility] Comment on above: Performed By: #### L 501.5200, L100.0100, L500.4050, L501.2300 ####[facility] [address] [place], [address] Potassium [Moles/Vol] 3.7 mmol/L Normal 3.3-5.1 [facility] Comment on above: Performed By: #### L 501.5200, L100.0100, L500.4050, L501.2300 ####[facility] [address] [place], [address] Sodium [Moles/Vol] 136 mmol/L Normal 133-145 [facility] Comment on above: Performed By: #### L 501.5200, L100.0100, L500.4050, L501.2300 ####[facility] [address] [place], [address] T PROT 7.6 g/dL Normal 5.9-8.4 [facility] Comment on above: Performed By: #### L 501.5200, L100.0100, L500.4050, L501.2300 ####[facility] [address] [place], [address] Urea nitrogen [Mass/Vol] 16 mg/dL Normal 4-19 [facility] Comment on above: Performed By: #### L 501.5200, L100.0100, L500.4050, L501.2300 ####[facility] [address] [place], [address] Eosinophil percentageOrdered By: Trish Ortiz on 03-31-2025 Eosinophils/100 WBC (Bld) 6.3 % High 0-5 [facility] Erythrocyte distribution wid th ratioOrdered By: Trish Ortiz on 03-31-2025 Erythrocyte distribution width (RBC) [Ratio] 21.7 % High 11.6-14.6 [facility] Erythrocyte distribution wid th standard deviationOrdered By: Trish Ortiz on 03-31-2025 Erythrocyte distribution width (RBC) [Ratio] 57.4 fl High 35.1-43.9 [facility] Glomerular filtration rate ( GFR) estimation/1.73 sq m using serum, plasma, or whole bOrdered By: [facility] on 03-31-2025 GFR/1.73 sq M.predicted among non-blacks MDRD (S/P/Bld) [Vol rate/Area] 106 mL/min/{1.73_m2} >60 [facility] Comment on above: mL/min/1.73m2 CKD-EP I Creatinine Equation (2020) Hematocrit Auto (Bld) [Volum e fraction]Ordered By: [facility] on 03-31-2025 Hematocrit (Bld) [Volume fraction] 31.3 % Low 40-54 [facility] Hemoglobin measurementOrdere d By: Trish Ortiz on 03-31-2025 Hemoglobin (Bld) [Mass/Vol] 9.3 g/dL Low 13.0-16.5 [facility] Immature granulocytes/100 WB C Auto (Bld)Ordered By: Trish Ortiz on 03-31-2025 Immature granulocytes/100 WBC (Bld) 0.400 % 0.0-0.9 [facility] Comment on above: IG% - Immature Granu locytes (promyelocytes, myelocytes and metamyelocytes) > 1% indicates that a LEFT SHIFT is Present. Laboratory - Chemistry and C hemistry - challengeOrdered By: Trish Ortiz on 03-31-2025 AST [Catalytic activity/Vol] 51 U/L High <38 [facility] Laboratory - Hematology and Cell countsOrdered By: Trish Ortiz on 03-31-2025 Anisocytosis Ql (Bld) 1+ [facility] MCV (mean corpuscular volume ) determinationOrdered By: Trish Ortiz on 03-31-2025 MCV (RBC) [Entitic vol] 76.2 fL Low 80-94 [facility] Magnesiumon 03-31-2025 Magnesium [Mass/Vol] 1.9 mg/dL Normal 1.5-2.2 [facility] Comment on above: Performed By: #### L 501.5200, L100.0100, L500.4050, L501.2300 ####[facility] [address] [place], [address] Magnesium measurement (mass/ volume)Ordered By: Trish Ortiz on 03-31-2025 Magnesium (Unsp spec) [Mass/Vol] 1.9 mg/dL 1.5-2.2 [facility] Mean corpuscular hemoglobin (MCH) determinationOrdered By: Trish Ortiz on 03-31-2025 MCH (RBC) [Entitic mass] 22.6 pg Low 27.0-32.0 [facility] Mean corpuscular hemoglobin concentration (MCHC) determinationOrdered By: Trish Ortiz on 03-31-2025 MCHC (RBC) [Mass/Vol] 29.7 g/dL Low 32-36 [facility] Mean platelet volume determi nationOrdered By: Trish Ortiz on 03-31-2025 Platelet mean volume (Bld) [Entitic vol] 9.8 fL 6.2-12.0 [facility] Monocyte percentageOrdered B y: Trish Ortiz on 03-31-2025 Monocytes/100 WBC (Bld) 12.3 % High 0-10 [facility] Neutrophil percentageOrdered By: [facility] Diana on 03-31-2025 Neutrophils/100 WBC (Bld) 72.4 % High 47-70 [facility] Nucleated red blood cell per centageOrdered By: Trish Ortiz on 03-31-2025 Nucleated RBC/100 WBC (Bld) [Ratio] 0 % 0-5 [facility] Oncology Visit Reporton 03-09 Oncology Visit Report Normal [facility] Phosphoruson 03-31-2025 Phosphate [Mass/Vol] 3.1 mg/dL Normal 2.7-4.5 [facility] Comment on above: Performed By: #### L 501.5200, L100.0100, L500.4050, L501.2300 ####[facility] [address] [place], [address] Platelet countOrdered By: Trent Ortiz on 03-31-2025 Platelets (Bld) [#/Vol] 232 10*3/uL 150-450 [facility] Potassium measurement (mass/ volume)Ordered By: Trish Ortiz on 03-31-2025 Potassium (Unsp spec) [Mass/Vol] 3.7 mmol/L 3.3-5.1 [facility] RBC Auto (Bld) [#/Vol]Ordere d By: Trish Ortiz on 03-31-2025 RBC (Bld) [#/Vol] 4.11 10*6/uL Low 4.6-6.2 [facility] Serum creatinine measurement (mass/volume)Ordered By: Trish Ortiz on 03-31-2025 Creatinine [Mass/Vol] 0.76 mg/dL 0.70-1.20 [facility] Serum globulin measurementOr dered By: Trish Ortiz on 03-31-2025 Globulin (S) [Mass/Vol] 4.2 g/dL 2.2-4.2 [facility] Serum glucose measurement (m ass/volume)Ordered By: Trish Ortiz on 03-31-2025 Glucose [Mass/Vol] 124 mg/dL High 70-99 [facility] Serum or plasma alanine arroyo otransferase (ALT) measurementOrdered By: Trish Ortiz on 03-31-2025 ALT [Catalytic activity/Vol] 39 U/L <47 [facility] Serum or plasma albumin bernard urement (mass/volume)Ordered By: Trish Ortiz on 03-31-2025 Albumin [Mass/Vol] 3.3 g/dL Low 3.5-5.0 [facility] Serum or plasma albumin/glob ulin mass ratioOrdered By: Trish Ortiz on 03-31-2025 Albumin/Globulin [Mass ratio] 0.8 {ratio} Low 0.9-2.4 [facility] Serum or plasma alkaline rubio sphatase measurementOrdered By: Malacaro Ortiz on 03-31-2025 ALP [Catalytic activity/Vol] 543 U/L High 40-129 [facility] Serum or plasma calcium bernard urement (mass/volume)Ordered By: Trish Ortiz on 03-31-2025 Calcium [Mass/Vol] 8.5 mg/dL 7.6-11.0 [facility] Serum or plasma urea nitroge n measurement (mass/volume)Ordered By: Trish Ortiz on 03-31-2025 Urea nitrogen [Mass/Vol] 16 mg/dL 4-19 [facility] Sodium levelOrdered By: Mala Ortiz on 03-31-2025 Sodium [Moles/Vol] 136 mmol/L 133-145 [facility] Total proteinOrdered By: Luciano Ortiz on 03-31-2025 Protein [Mass/Vol] 7.6 g/dL 5.9-8.4 [facility] White blood cell (WBC) count Ordered By: Trish Ortiz on 03-31-2025 WBC (Bld) [#/Vol] 10.3 10*3/uL 4.4-11.0 [facility] Absolute lymphocyte countOrd ered By: Trish Ortiz on 03-25-2025 Lymphocytes Auto (Unsp spec) [#/Vol] 0.85 10*3/uL 0.83-4.51 [facility] Absolute neutrophil countOrd ered By: Trish Ortiz on 03-25-2025 Neutrophils (Bld) [#/Vol] 11.8 10*3/uL High 2.0-7.7 [facility] Anion gap in Serum or Plasma Ordered By: Trish Ortiz on 03-25-2025 Anion gap [Moles/Vol] 9 mmol/L 5-15 [facility] Automated lymphocyte count a s percentage of total leukocytesOrdered By: Trish Ortiz on 03-25-2025 Lymphocytes/100 WBC Auto (Unsp spec) 5.9 % Low 19-41 [facility] BUN/creatinine ratioOrdered By: Trish Ortiz on 03-25-2025 Urea nitrogen/Creatinine [Mass ratio] 19.7 mg/mg - [facility] Basic Metabolic Profile (BMP )on 03-25-2025 BUN/CRE 19.7 RATIO Normal - [facility] Comment on above: Performed By: #### L 501.2300, L500.2500, L100.0100, L501.5200 ####[facility] [address] [place], [address] Calcium [Mass/Vol] 8.5 mg/dL Normal 7.6-11.0 [facility] Comment on above: Performed By: #### L 501.2300, L500.2500, L100.0100, L501.5200 ####[facility] [address] [place], [address] Chloride [Moles/Vol] 101 mmol/L Normal 98-108 [facility] Comment on above: Performed By: #### L 501.2300, L500.2500, L100.0100, L501.5200 ####[facility] [address] [place], [address] CO2 [Moles/Vol] 23.7 mmol/L Normal 21.0-32.0 [facility] Comment on above: Performed By: #### L 501.2300, L500.2500, L100.0100, L501.5200 ####[facility] [address] [place], [address] Creatinine [Mass/Vol] 0.87 mg/dL Normal 0.70-1.20 [facility] Comment on above: Performed By: #### L 501.2300, L500.2500, L100.0100, L501.5200 ####[facility] [address] [place], [address] ECRCL 114.66 ml/min Normal 50-250 [facility] Comment on above: Performed By: #### L 501.2300, L500.2500, L100.0100, L501.5200 ####[facility] [address] [place], [address] GAP 9 Normal 5-15 [facility] Comment on above: Performed By: #### L 501.2300, L500.2500, L100.0100, L501.5200 ####[facility] [address] [place], [address] GFR/1.73 sq M.predicted among non-blacks MDRD (S/P/Bld) [Vol rate/Area] 102 mL/min/{1.73_m2} Normal >60 [facility] Comment on above: Result Comment: mL/m in/1.73m2 CKD-EPI Creatinine Equation (2020) Performed By: #### L 501.2300, L500.2500, L100.0100, L501.5200 ####[facility] [address] [place], [address] Glucose [Mass/Vol] 103 mg/dL High 70-99 [facility] Comment on above: Performed By: #### L 501.2300, L500.2500, L100.0100, L501.5200 ####[facility] [address] [place], [address] Potassium [Moles/Vol] 4.0 mmol/L Normal 3.3-5.1 [facility] Comment on above: Performed By: #### L 501.2300, L500.2500, L100.0100, L501.5200 ####[facility] [address] [place], [address] Sodium [Moles/Vol] 134 mmol/L Normal 133-145 [facility] Comment on above: Performed By: #### L 501.2300, L500.2500, L100.0100, L501.5200 ####[facility] [address] [place], [address] Urea nitrogen [Mass/Vol] 17 mg/dL Normal 4-19 [facility] Comment on above: Performed By: #### L 501.2300, L500.2500, L100.0100, L501.5200 ####[facility] [address] [place], [address] Basophil percentageOrdered B y: Trish Ortiz on 03-25-2025 Basophils/100 WBC (Bld) 0.3 % 0-1 [facility] CBC W/Diff, Automatedon 03-08 Absolute Lymph 0.85 X10 3/uL Normal 0.83-4.51 [facility] Comment on above: Performed By: #### L 501.2300, L500.2500, L100.0100, L501.5200 ####[facility] [address] [place], [address] Absolute Neut 11.8 X10 3/uL High 2.0-7.7 [facility] Comment on above: Performed By: #### L 501.2300, L500.2500, L100.0100, L501.5200 ####[facility] [address] [place], [address] Basophils/100 WBC (Bld) 0.3 % Normal 0-1 [facility] Comment on above: Performed By: #### L 501.2300, L500.2500, L100.0100, L501.5200 ####[facility] [address] [place], [address] Eosinophils/100 WBC (Bld) 3.1 % Normal 0-5 [facility] Comment on above: Performed By: #### L 501.2300, L500.2500, L100.0100, L501.5200 ####[facility] [address] [place], [address] Erythrocyte distribution width (RBC) [Ratio] 19.6 % High 11.6-14.6 [facility] Comment on above: Performed By: #### L 501.2300, L500.2500, L100.0100, L501.5200 ####[facility] [address] [place], [address] Hematocrit (Bld) [Volume fraction] 29.8 % Low 40-54 [facility] Comment on above: Performed By: #### L 501.2300, L500.2500, L100.0100, L501.5200 ####[facility] [address] [place], [address] Hemoglobin (Bld) [Mass/Vol] 9.1 g/dL Low 13.0-16.5 [facility] Comment on above: Performed By: #### L 501.2300, L500.2500, L100.0100, L501.5200 ####[facility] [address] [place], [address] IG% 0.600 Normal 0.0-0.9 [facility] Comment on above: Result Comment: IG% - Immature Granulocytes (promyelocytes, myelocytes andmetamyelocytes) > 1% indicates that a LEFT SHIFT is Present. Performed By: #### L 501.2300, L500.2500, L100.0100, L501.5200 ####[facility] [address] [place], [address] Lymphocytes/100 WBC (Bld) 5.9 % Low 19-41 [facility] Comment on above: Performed By: #### L 501.2300, L500.2500, L100.0100, L501.5200 ####[facility] [address] [place], [address] MCH (RBC) [Entitic mass] 22.2 pg Low 27.0-32.0 [facility] Comment on above: Performed By: #### L 501.2300, L500.2500, L100.0100, L501.5200 ####[facility] [address] [place], [address] MCHC (RBC) [Mass/Vol] 30.5 g/dL Low 32-36 [facility] Comment on above: Performed By: #### L 501.2300, L500.2500, L100.0100, L501.5200 ####[facility] [address] [place], [address] MCV (RBC) [Entitic vol] 72.9 fL Low 80-94 [facility] Comment on above: Performed By: #### L 501.2300, L500.2500, L100.0100, L501.5200 ####[facility] [address] [place], [address] Monocytes/100 WBC (Bld) 8.3 % Normal 0-10 [facility] Comment on above: Performed By: #### L 501.2300, L500.2500, L100.0100, L501.5200 ####[facility] [address] [place], [address] Neutrophils/100 WBC (Bld) 81.8 % High 47-70 [facility] Comment on above: Performed By: #### L 501.2300, L500.2500, L100.0100, L501.5200 ####[facility] [address] [place], [address] Nucleated RBC (Bld) [#/Vol] 0 10*3/uL Normal 0-5 [facility] Comment on above: Performed By: #### L 501.2300, L500.2500, L100.0100, L501.5200 ####[facility] [address] [place], [address] Platelet mean volume (Bld) [Entitic vol] 9.3 fL Normal 6.2-12.0 [facility] Comment on above: Performed By: #### L 501.2300, L500.2500, L100.0100, L501.5200 ####[facility] [address] [place], [address] Platelets (Bld) [#/Vol] 316 10*3/uL Normal 150-450 [facility] Comment on above: Performed By: #### L 501.2300, L500.2500, L100.0100, L501.5200 ####[facility] [address] [place], [address] RBC (Bld) [#/Vol] 4.09 10*6/uL Low 4.6-6.2 [facility] Comment on above: Performed By: #### L 501.2300, L500.2500, L100.0100, L501.5200 ####[facility] [address] [place], [address] RDW SD 50.5 fl High 35.1-43.9 [facility] Comment on above: Performed By: #### L 501.2300, L500.2500, L100.0100, L501.5200 ####[facility] [address] [place], [address] WBC (Bld) [#/Vol] 14.5 10*3/uL High 4.4-11.0 [facility] Comment on above: Performed By: #### L 501.2300, L500.2500, L100.0100, L501.5200 ####[facility] [address] [place], [address] Carbon dioxide, total [Moles /volume] in Central venous bloodOrdered By: Trish Ortiz on 03-25-2025 CO2 [Moles/Vol] 23.7 mmol/L 21.0-32.0 [facility] Chloride assayOrdered By: Trent Ortiz on 03-25-2025 Chloride [Moles/Vol] 101 mmol/L 98-108 [facility] Eosinophil percentageOrdered By: [facility] Hospital[facility]o [facility] on 03-25-2025 Eosinophils/100 WBC (Bld) 3.1 % 0-5 [facility] Erythrocyte distribution wid th ratioOrdered By: [facility]o [facility] on 03-25-2025 Erythrocyte distribution width (RBC) [Ratio] 19.6 % High 11.6-14.6 [facility] Erythrocyte distribution wid th standard deviationOrdered By: [facility] Hospital[facility]o [facility] on 03-25-2025 Erythrocyte distribution width (RBC) [Ratio] 50.5 fl High 35.1-43.9 [facility] Glomerular filtration rate ( GFR) estimation/1.73 sq m using serum, plasma, or whole bOrdered By: [facility] Hospital[facility]o [facility] on 03-25-2025 GFR/1.73 sq M.predicted among non-blacks MDRD (S/P/Bld) [Vol rate/Area] 102 mL/min/{1.73_m2} >60 [facility] Comment on above: mL/min/1.73m2 CKD-EP I Creatinine Equation (2020) Hematocrit Auto (Bld) [Volum e fraction]Ordered By: [facility] on 03-25-2025 Hematocrit (Bld) [Volume fraction] 29.8 % Low 40-54 [facility] Hemoglobin measurementOrdere d By: Trish Ortiz on 03-25-2025 Hemoglobin (Bld) [Mass/Vol] 9.1 g/dL Low 13.0-16.5 [facility] Immature granulocytes/100 WB C Auto (Bld)Ordered By: Trish Ortiz on 03-25-2025 Immature granulocytes/100 WBC (Bld) 0.600 % 0.0-0.9 [facility] Comment on above: IG% - Immature Granu locytes (promyelocytes, myelocytes and metamyelocytes) > 1% indicates that a LEFT SHIFT is Present. MCV (mean corpuscular volume ) determinationOrdered By: Trish Ortiz on 03-25-2025 MCV (RBC) [Entitic vol] 72.9 fL Low 80-94 [facility] Magnesiumon 03-25-2025 Magnesium [Mass/Vol] 1.6 mg/dL Normal 1.5-2.2 [facility] Comment on above: Performed By: #### L 501.2300, L500.2500, L100.0100, L501.5200 ####[facility] [address] [place], [address] Magnesium measurement (mass/ volume)Ordered By: Trish Ortiz on 03-25-2025 Magnesium (Unsp spec) [Mass/Vol] 1.6 mg/dL 1.5-2.2 [facility] Mean corpuscular hemoglobin (MCH) determinationOrdered By: Trish Ortiz on 03-25-2025 MCH (RBC) [Entitic mass] 22.2 pg Low 27.0-32.0 [facility] Mean corpuscular hemoglobin concentration (MCHC) determinationOrdered By: [facility] Hospital[facility] on 03-25-2025 MCHC (RBC) [Mass/Vol] 30.5 g/dL Low 32-36 [facility] Mean platelet volume determi nationOrdered By: Trish Ortiz on 03-25-2025 Platelet mean volume (Bld) [Entitic vol] 9.3 fL 6.2-12.0 [facility] Monocyte percentageOrdered B y: Trish Ortiz on 03-25-2025 Monocytes/100 WBC (Bld) 8.3 % 0-10 [facility] Neutrophil percentageOrdered By: [facility] Diana on 03-25-2025 Neutrophils/100 WBC (Bld) 81.8 % High 47-70 [facility] Nucleated red blood cell per centageOrdered By: [facility] Hospitalcaro [facility] on 03-25-2025 Nucleated RBC/100 WBC (Bld) [Ratio] 0 % 0-5 [facility] Oncology Visit Reporton 03-08 Oncology Visit Report Normal [facility] Phosphoruson 03-25-2025 Phosphate [Mass/Vol] 2.4 mg/dL Low 2.7-4.5 [facility] Comment on above: Performed By: #### L 501.2300, L500.2500, L100.0100, L501.5200 ####[facility] [address] [place], [address] Platelet countOrdered By: Trent Ortiz on 03-25-2025 Platelets (Bld) [#/Vol] 316 10*3/uL 150-450 [facility] Potassium measurement (mass/ volume)Ordered By: Trish Ortiz on 03-25-2025 Potassium (Unsp spec) [Mass/Vol] 4.0 mmol/L 3.3-5.1 [facility] RBC Auto (Bld) [#/Vol]Ordere d By: Trish Ortiz on 03-25-2025 RBC (Bld) [#/Vol] 4.09 10*6/uL Low 4.6-6.2 [facility] Serum creatinine measurement (mass/volume)Ordered By: Trish Ortiz on 03-25-2025 Creatinine [Mass/Vol] 0.87 mg/dL 0.70-1.20 [facility] Serum glucose measurement (m ass/volume)Ordered By: Trish Ortiz on 03-25-2025 Glucose [Mass/Vol] 103 mg/dL High 70-99 [facility] Serum or plasma calcium bernard urement (mass/volume)Ordered By: Trish Ortiz on 03-25-2025 Calcium [Mass/Vol] 8.5 mg/dL 7.6-11.0 [facility] Serum or plasma urea nitroge n measurement (mass/volume)Ordered By: Trish Ortiz on 03-25-2025 Urea nitrogen [Mass/Vol] 17 mg/dL 4-19 [facility] Sodium levelOrdered By: Mala Ortiz on 03-25-2025 Sodium [Moles/Vol] 134 mmol/L 133-145 [facility] White blood cell (WBC) count Ordered By: Trish Ortiz on 03-25-2025 WBC (Bld) [#/Vol] 14.5 10*3/uL High 4.4-11.0 [facility] Absolute lymphocyte countOrd ered By: Trish Ortiz on 03-18-2025 Lymphocytes Auto (Unsp spec) [#/Vol] 0.95 10*3/uL 0.83-4.51 [facility] Absolute neutrophil countOrd ered By: Trish Ortiz on 03-18-2025 Neutrophils (Bld) [#/Vol] 9.0 10*3/uL High 2.0-7.7 [facility] Anion gap in Serum or Plasma Ordered By: Trish Ortiz on 03-18-2025 Anion gap [Moles/Vol] 9 mmol/L 5-15 [facility] Automated lymphocyte count a s percentage of total leukocytesOrdered By: Trish Ortiz on 03-18-2025 Lymphocytes/100 WBC Auto (Unsp spec) 8.3 % Low 19-41 [facility] BUN/creatinine ratioOrdered By: Trish Ortiz on 03-18-2025 Urea nitrogen/Creatinine [Mass ratio] 28.8 mg/mg High 10-20 [facility] Basophil percentageOrdered B y: Trish Ortiz on 03-18-2025 Basophils/100 WBC (Bld) 0.7 % 0-1 [facility] Bilirubin, totalOrdered By: Trish Ortiz on 03-18-2025 Bilirubin [Mass/Vol] 1.11 mg/dL 0.00-1.30 [facility] CBC W/Diff, AutomatedOrdered By: Trish Ortiz on 03-18-2025 Anisocytosis Ql (Bld) 2+ Normal [facility] Comment on above: Performed By: #### L 500.4050, L501.5200, L100.0100 ####[facility] [address] [place], [address] Carbon dioxide, total [Moles /volume] in Central venous bloodOrdered By: Trish Ortiz on 03-18-2025 CO2 [Moles/Vol] 24.4 mmol/L 21.0-32.0 [facility] Chloride assayOrdered By: Trent Ortiz on 03-18-2025 Chloride [Moles/Vol] 103 mmol/L 98-108 [facility] Comprehensive Metabolic Prof ilon 03-18-2025 Albumin [Mass/Vol] 3.4 g/dL Low 3.5-5.0 [facility] Comment on above: Performed By: #### L 500.4050, L501.5200, L100.0100 ####[facility] [address] [place], [address] Albumin/Globulin [Mass ratio] 0.7 {ratio} Low 0.9-2.4 [facility] Comment on above: Performed By: #### L 500.4050, L501.5200, L100.0100 ####[facility] [address] [place], [address] ALK PHOS 728 U/L High 40-129 [facility] Comment on above: Performed By: #### L 500.4050, L501.5200, L100.0100 ####[facility] [address] [place], [address] ALT [Catalytic activity/Vol] 68 U/L High <=46 [facility] Comment on above: Performed By: #### L 500.4050, L501.5200, L100.0100 ####[facility] [address] [place], [address] AST [Catalytic activity/Vol] 98 U/L High <=37 [facility] Comment on above: Performed By: #### L 500.4050, L501.5200, L100.0100 ####[facility] [address] [place], [address] Bilirubin [Mass/Vol] 1.11 mg/dL Normal 0.00-1.30 [facility] Comment on above: Performed By: #### L 500.4050, L501.5200, L100.0100 ####[facility] [address] [place], [address] BUN/CRE 28.8 RATIO High 10-20 [facility] Comment on above: Performed By: #### L 500.4050, L501.5200, L100.0100 ####[facility] [address] [place], [address] Calcium [Mass/Vol] 8.7 mg/dL Normal 7.6-11.0 [facility] Comment on above: Performed By: #### L 500.4050, L501.5200, L100.0100 ####[facility] [address] [place], [address] Chloride [Moles/Vol] 103 mmol/L Normal 98-108 [facility] Comment on above: Performed By: #### L 500.4050, L501.5200, L100.0100 ####[facility] [address] [place], [address] CO2 [Moles/Vol] 24.4 mmol/L Normal 21.0-32.0 [facility] Comment on above: Performed By: #### L 500.4050, L501.5200, L100.0100 ####[facility] [address] [place], [address] Creatinine [Mass/Vol] 0.75 mg/dL Normal 0.70-1.20 [facility] Comment on above: Performed By: #### L 500.4050, L501.5200, L100.0100 ####[facility] [address] [place], [address] ECRCL 133.01 ml/min Normal 50-250 [facility] Comment on above: Performed By: #### L 500.4050, L501.5200, L100.0100 ####[facility] [address] [place], [address] GAP 9 Normal 5-15 [facility] Comment on above: Performed By: #### L 500.4050, L501.5200, L100.0100 ####[facility] [address] [place], [address] GFR/1.73 sq M.predicted among non-blacks MDRD (S/P/Bld) [Vol rate/Area] 106 mL/min/{1.73_m2} Normal >60 [facility] Comment on above: Result Comment: mL/m in/1.73m2 CKD-EPI Creatinine Equation (2020) Performed By: #### L 500.4050, L501.5200, L100.0100 ####[facility] [address] [place], [address] Globulin (S) [Mass/Vol] 4.6 g/dL High 2.2-4.2 [facility] Comment on above: Performed By: #### L 500.4050, L501.5200, L100.0100 ####[facility] [address] [place], [address] Glucose [Mass/Vol] 144 mg/dL High 70-99 [facility] Comment on above: Performed By: #### L 500.4050, L501.5200, L100.0100 ####[facility] [address] [place], [address] Potassium [Moles/Vol] 3.8 mmol/L Normal 3.3-5.1 [facility] Comment on above: Performed By: #### L 500.4050, L501.5200, L100.0100 ####[facility] [address] [place], [address] Sodium [Moles/Vol] 136 mmol/L Normal 133-145 [facility] Comment on above: Performed By: #### L 500.4050, L501.5200, L100.0100 ####[facility] [address] [place], [address] T PROT 8.0 g/dL Normal 5.9-8.4 [facility] Comment on above: Performed By: #### L 500.4050, L501.5200, L100.0100 ####[facility] [address] [place], [address] Urea nitrogen [Mass/Vol] 22 mg/dL High 4-19 [facility] Comment on above: Performed By: #### L 500.4050, L501.5200, L100.0100 ####[facility] [address] [place], [address] Eosinophil percentageOrdered By: Trish Ortiz on 03-18-2025 Eosinophils/100 WBC (Bld) 4.6 % 0-5 [facility] Erythrocyte distribution wid th ratioOrdered By: Trish Ortiz on 03-18-2025 Erythrocyte distribution width (RBC) [Ratio] 20.1 % High 11.6-14.6 [facility] Erythrocyte distribution wid th standard deviationOrdered By: [facility] Hospital[facility]o Ortiz on 03-18-2025 Erythrocyte distribution width (RBC) [Ratio] 52.8 fl High 35.1-43.9 [facility] Ferritinon 03-18-2025 Ferritin [Mass/Vol] 20 ng/mL Low 37-417 [facility] Comment on above: Order Comment: ROMEL Howard ADD ON FROM EARLIER TODAY, THANKS Performed By: #### L 503.6550, L503.6030 ####[facility] [address] [place], [address] Glomerular filtration rate ( GFR) estimation/1.73 sq m using serum, plasma, or whole bOrdered By: Trish Ortiz on 03-18-2025 GFR/1.73 sq M.predicted among non-blacks MDRD (S/P/Bld) [Vol rate/Area] 106 mL/min/{1.73_m2} >60 [facility] Comment on above: mL/min/1.73m2 CKD-EP I Creatinine Equation (2020) Hematocrit Auto (Bld) [Volum e fraction]Ordered By: Trish Ortiz on 03-18-2025 Hematocrit (Bld) [Volume fraction] 30.2 % Low 40-54 [facility] Hemoglobin measurementOrdere d By: Trish Ortiz on 03-18-2025 Hemoglobin (Bld) [Mass/Vol] 8.9 g/dL Low 13.0-16.5 [facility] Immature granulocytes/100 WB C Auto (Bld)Ordered By: Trish Ortiz on 03-18-2025 Immature granulocytes/100 WBC (Bld) 0.300 % 0.0-0.9 [facility] Comment on above: IG% - Immature Granu locytes (promyelocytes, myelocytes and metamyelocytes) > 1% indicates that a LEFT SHIFT is Present. Iron measurement (mass/mass) Ordered By: Trish Ortiz on 03-18-2025 Iron (Unsp spec) [Mass/Mass] 17 ug/dL Low 65-175 [facility] Iron+Iron Binding Capacityon 03-18-2025 Iron [Mass/Vol] 17 ug/dL Low 65-175 [facility] Comment on above: Order Comment: ROMEL Howard ADD ON FROM EARLIER TODAY, THANKS Performed By: #### Yisel 503.6550, L503.6030 ####[facility] [address] [place], [address] IRON SATURATION 5.0 Low 9-55 [facility] Comment on above: Order Comment: ROMEL Howard ADD ON FROM EARLIER TODAY, THANKS Performed By: #### L 503.6550, L503.6030 ####[facility] [address] [place], [address] TIBC 364 ug/dL Normal 250-450 [facility] Comment on above: Order Comment: ROMEL Howard ADD ON FROM EARLIER TODAY, THANKS Performed By: #### L 503.6550, L503.6030 ####[facility] [address] [place], [address] UIBC 347 ug/dL Normal 228-428 [facility] Comment on above: Order Comment: ROMEL Howard ADD ON FROM EARLIER TODAY, THANKS Performed By: #### L 503.6550, L503.6030 ####[facility] [address] [place], [address] Laboratory - Chemistry and C hemistry - challengeOrdered By: Trish Ortiz on 03-18-2025 AST [Catalytic activity/Vol] 98 U/L High <38 [facility] MCV (mean corpuscular volume ) determinationOrdered By: Trish Ortiz on 03-18-2025 MCV (RBC) [Entitic vol] 73.5 fL Low 80-94 [facility] Magnesiumon 03-18-2025 Magnesium [Mass/Vol] 1.9 mg/dL Normal 1.5-2.2 [facility] Comment on above: Performed By: #### L 500.4050, L501.5200, L100.0100 ####[facility] [address] [place], [place], [id number] Magnesium measurement (mass/ volume)Ordered By: Trish Ortiz on 03-18-2025 Magnesium (Unsp spec) [Mass/Vol] 1.9 mg/dL 1.5-2.2 [facility] Mean corpuscular hemoglobin (MCH) determinationOrdered By: Trish Ortiz on 03-18-2025 MCH (RBC) [Entitic mass] 21.7 pg Low 27.0-32.0 [facility] Mean corpuscular hemoglobin concentration (MCHC) determinationOrdered By: Trish Ortiz on 03-18-2025 MCHC (RBC) [Mass/Vol] 29.5 g/dL Low 32-36 [facility] Mean platelet volume determi nationOrdered By: Trish Ortiz on 03-18-2025 Platelet mean volume (Bld) [Entitic vol] 9.4 fL 6.2-12.0 [facility] Monocyte percentageOrdered B y: Trish Ortiz on 03-18-2025 Monocytes/100 WBC (Bld) 7.8 % 0-10 [facility] Neutrophil percentageOrdered By: Trish Ortiz on 03-18-2025 Neutrophils/100 WBC (Bld) 78.3 % High 47-70 [facility] No Panel InformationOrdered By: Trish Ortiz on 03-18-2025 Unsaturated Iron Binding Capacity 347 ug/dL 228-428 [facility] Nucleated red blood cell per centageOrdered By: Trish Ortiz on 03-18-2025 Nucleated RBC/100 WBC (Bld) [Ratio] 0 % 0-5 [facility] Oncology Visit Reporton 03-08 Oncology Visit Report Normal [facility] Platelet countOrdered By: Trent Ortiz on 03-18-2025 Platelets (Bld) [#/Vol] 374 10*3/uL 150-450 [facility] Potassium measurement (mass/ volume)Ordered By: Trish Ortiz on 03-18-2025 Potassium (Unsp spec) [Mass/Vol] 3.8 mmol/L 3.3-5.1 [facility] RBC Auto (Bld) [#/Vol]Ordere d By: Trish Ortiz on 03-18-2025 RBC (Bld) [#/Vol] 4.11 10*6/uL Low 4.6-6.2 [facility] Serum creatinine measurement (mass/volume)Ordered By: Trish Ortiz on 03-18-2025 Creatinine [Mass/Vol] 0.75 mg/dL 0.70-1.20 [facility] Serum globulin measurementOr dered By: Trish Ortiz on 03-18-2025 Globulin (S) [Mass/Vol] 4.6 g/dL High 2.2-4.2 [facility] Serum glucose measurement (m ass/volume)Ordered By: Trish Ortiz on 03-18-2025 Glucose [Mass/Vol] 144 mg/dL High 70-99 [facility] Serum or plasma alanine arroyo otransferase (ALT) measurementOrdered By: Trish Ortiz on 03-18-2025 ALT [Catalytic activity/Vol] 68 U/L High <47 [facility] Serum or plasma albumin bernard urement (mass/volume)Ordered By: Trish Ortiz on 03-18-2025 Albumin [Mass/Vol] 3.4 g/dL Low 3.5-5.0 [facility] Serum or plasma albumin/glob ulin mass ratioOrdered By: Trish Ortiz on 03-18-2025 Albumin/Globulin [Mass ratio] 0.7 {ratio} Low 0.9-2.4 [facility] Serum or plasma alkaline rubio sphatase measurementOrdered By: Trish Ortiz on 03-18-2025 ALP [Catalytic activity/Vol] 728 U/L High 40-129 [facility] Serum or plasma calcium bernard urement (mass/volume)Ordered By: Trish Ortiz on 03-18-2025 Calcium [Mass/Vol] 8.7 mg/dL 7.6-11.0 [facility] Serum or plasma ferritin filippo surement (mass/volume)Ordered By: Trish Ortiz on 03-18-2025 Ferritin [Mass/Vol] 20 ng/mL Low 37-417 [facility] Serum or plasma iron saturat ion measurement (mass fraction)Ordered By: Trish Ortiz on 03-18-2025 Iron saturation [Mass fraction] 5.0 % Low 9-55 [facility] Serum or plasma urea nitroge n measurement (mass/volume)Ordered By: Trish Ortiz on 03-18-2025 Urea nitrogen [Mass/Vol] 22 mg/dL High 4-19 [facility] Sodium levelOrdered By: Mala Ortiz on 03-18-2025 Sodium [Moles/Vol] 136 mmol/L 133-145 [facility] Total proteinOrdered By: Luciano Ortiz on 03-18-2025 Protein [Mass/Vol] 8.0 g/dL 5.9-8.4 [facility] White blood cell (WBC) count Ordered By: Trish Ortiz on 03-18-2025 WBC (Bld) [#/Vol] 11.5 10*3/uL High 4.4-11.0 [facility] Absolute lymphocyte countOrd ered By: Aryan Ramirez on 03-10-2025 Lymphocytes Auto (Unsp spec) [#/Vol] 1.18 10*3/uL 0.83-4.51 [facility] Absolute neutrophil countOrd ered By: Aryan Ramirez on 03-10-2025 Neutrophils (Bld) [#/Vol] 8.9 10*3/uL High 2.0-7.7 [facility] Anion gap in Serum or Plasma Ordered By: Aryan Ramirez on 03-10-2025 Anion gap [Moles/Vol] 9 mmol/L 5-15 [facility] Automated lymphocyte count a s percentage of total leukocytesOrdered By: Aryan Ramirez on 03-10-2025 Lymphocytes/100 WBC Auto (Unsp spec) 9.9 % Low 19-41 [facility] BUN/creatinine ratioOrdered By: Aryan Ramirez on 03-10-2025 Urea nitrogen/Creatinine [Mass ratio] 32.8 mg/mg High 10-20 [facility] Basic Metabolic Profile (BMP )on 03-10-2025 BUN/CRE 32.8 RATIO High 10- [facility] Comment on above: Performed By: #### L 100.0100, L500.2500 ####[facility] [address] [place], [address] Calcium [Mass/Vol] 8.5 mg/dL Normal 7.6-11.0 [facility] Comment on above: Performed By: #### L 100.0100, L500.2500 ####[facility] [address] [place], [address] Chloride [Moles/Vol] 105 mmol/L Normal 98-108 [facility] Comment on above: Performed By: #### L 100.0100, L500.2500 ####[facility] [address] [place], [address] CO2 [Moles/Vol] 22.2 mmol/L Normal 21.0-32.0 [facility] Comment on above: Performed By: #### L 100.0100, L500.2500 ####[facility] [address] [place], [address] Creatinine [Mass/Vol] 0.77 mg/dL Normal 0.70-1.20 [facility] Comment on above: Performed By: #### L 100.0100, L500.2500 ####[facility] [address] [place], [address] ECRCL 129.55 ml/min Normal 50-250 [facility] Comment on above: Performed By: #### L 100.0100, L500.2500 ####[facility] [address] [place], [address] GAP 9 Normal 5-15 [facility] Comment on above: Performed By: #### L 100.0100, L500.2500 ####[facility] [address] [place], [address] GFR/1.73 sq M.predicted among non-blacks MDRD (S/P/Bld) [Vol rate/Area] 106 mL/min/{1.73_m2} Normal >60 [facility] Comment on above: Result Comment: mL/m in/1.73m2 CKD-EPI Creatinine Equation (2020) Performed By: #### L 100.0100, L500.2500 ####[facility] [address] [place], [address] Glucose [Mass/Vol] 94 mg/dL Normal 70-99 [facility] Comment on above: Performed By: #### L 100.0100, L500.2500 ####[facility] [address] [place], [address] Potassium [Moles/Vol] 4.2 mmol/L Normal 3.3-5.1 [facility] Comment on above: Performed By: #### L 100.0100, L500.2500 ####[facility] [address] [place], [address] Sodium [Moles/Vol] 136 mmol/L Normal 133-145 [facility] Comment on above: Performed By: #### L 100.0100, L500.2500 ####[facility] [address] [place], [address] Urea nitrogen [Mass/Vol] 25 mg/dL High 4-19 [facility] Comment on above: Performed By: #### L 100.0100, L500.2500 ####[facility] [address] [place], [place], [address] Basophil percentageOrdered B y: Aryan Ramirez on 03-10-2025 Basophils/100 WBC (Bld) 0.6 % 0-1 [facility] CBC W/Diff, Automatedon 06- Anisocytosis Ql (Bld) 1+ Normal [facility] Comment on above: Performed By: #### L 100.0100, L500.2500 ####[facility] [address] [facility] [place], [address] Carbon dioxide, total [Moles /volume] in Central venous bloodOrdered By: Aryan Ramirez on 03-10-2025 CO2 [Moles/Vol] 22.2 mmol/L 21.0-32.0 [facility] Chest PA and Lateralon 03-10 Chest PA and Lateral Normal [facility] Chloride assayOrdered By: Nani Ramirez on 03-10-2025 Chloride [Moles/Vol] 105 mmol/L 98-108 [facility] Emergency Department Summary on 03-10-2025 Emergency Department Summary Normal [facility] Eosinophil percentageOrdered By: Aryan Ramirez on 03-10-2025 Eosinophils/100 WBC (Bld) 4.0 % 0-5 [facility] Erythrocyte distribution wid th ratioOrdered By: Aryan Ramirez on 03-10-2025 Erythrocyte distribution width (RBC) [Ratio] 20.8 % High 11.6-14.6 [facility] Erythrocyte distribution wid th standard deviationOrdered By: Aryan Ramirez on 03-10-2025 Erythrocyte distribution width (RBC) [Ratio] 55.9 fl High 35.1-43.9 [facility] Glomerular filtration rate ( GFR) estimation/1.73 sq m using serum, plasma, or whole bOrdered By: Aryan Ramirez on 03-10-2025 GFR/1.73 sq M.predicted among non-blacks MDRD (S/P/Bld) [Vol rate/Area] 106 mL/min/{1.73_m2} >60 [facility] Comment on above: mL/min/1.73m2 CKD-EP I Creatinine Equation (2020) Hematocrit Auto (Bld) [Volum e fraction]Ordered By: Aryan Ramirez on 03-10-2025 Hematocrit (Bld) [Volume fraction] 28.3 % Low 40-54 [facility] Hemoglobin measurementOrdere d By: Aryan Ramirez on 03-10-2025 Hemoglobin (Bld) [Mass/Vol] 8.3 g/dL Low 13.0-16.5 [facility] Immature granulocytes/100 WB C Auto (Bld)Ordered By: Aryan Ramirez on 03-10-2025 Immature granulocytes/100 WBC (Bld) 0.300 % 0.0-0.9 [facility] Comment on above: IG% - Immature Granu locytes (promyelocytes, myelocytes and metamyelocytes) > 1% indicates that a LEFT SHIFT is Present. Influenza virus A and B and SARS-CoV-2 (COVID-19) and Respiratory syncytial virus RNAOrdered By: Aryan Ramirez on 03-10-2025 SARS-CoV-2 (COVID-19) RNA ZANDER+probe Ql (Unsp spec) [facility] Laboratory - Hematology and Cell countsOrdered By: Aryan Ramirez on 03-10-2025 Anisocytosis Ql (Bld) 1+ [facility] M100.678on 03-10-2025 M100.678 SARS-CoV-2 (COVID 19 ) Negative INFLUENZA A Negative INFLUENZA B Negative RSV PCR Negative Normal [facility] Comment on above: Performed By: #### M 100.678 ####[facility] [address] [place], [place], [id number] MCV (mean corpuscular volume ) determinationOrdered By: Aryan Ramierz on 03-10-2025 MCV (RBC) [Entitic vol] 75.1 fL Low 80-94 [facility] Mean corpuscular hemoglobin (MCH) determinationOrdered By: Aryan Ramirez on 03-10-2025 MCH (RBC) [Entitic mass] 22.0 pg Low 27.0-32.0 [facility] Mean corpuscular hemoglobin concentration (MCHC) determinationOrdered By: Aryan Ramirez on 03-10-2025 MCHC (RBC) [Mass/Vol] 29.3 g/dL Low 32-36 [facility] Mean platelet volume determi nationOrdered By: Aryan Ramirez on 03-10-2025 Platelet mean volume (Bld) [Entitic vol] 9.6 fL 6.2-12.0 [facility] Monocyte percentageOrdered B y: Aryan Ramirez on 03-10-2025 Monocytes/100 WBC (Bld) 10.3 % High 0-10 [facility] Neutrophil percentageOrdered By: Aryan Ramirez on 03-10-2025 Neutrophils/100 WBC (Bld) 74.9 % High 47-70 [facility] Nucleated red blood cell per centageOrdered By: Aryan Ramirez on 03-10-2025 Nucleated RBC/100 WBC (Bld) [Ratio] 0 % 0-5 [facility] Platelet countOrdered By: Nani Ramirez on 03-10-2025 Platelets (Bld) [#/Vol] 321 10*3/uL 150-450 [facility] Potassium measurement (mass/ volume)Ordered By: Aryan Ramirez on 03-10-2025 Potassium (Unsp spec) [Mass/Vol] 4.2 mmol/L 3.3-5.1 [facility] RBC Auto (Bld) [#/Vol]Ordere d By: Aryan Ramirez on 03-10-2025 RBC (Bld) [#/Vol] 3.77 10*6/uL Low 4.6-6.2 [facility] Serum creatinine measurement (mass/volume)Ordered By: Aryan Ramirez on 03-10-2025 Creatinine [Mass/Vol] 0.77 mg/dL 0.70-1.20 [facility] Serum glucose measurement (m ass/volume)Ordered By: Aryan Ramirez on 03-10-2025 Glucose [Mass/Vol] 94 mg/dL 70-99 [facility] Serum or plasma calcium bernard urement (mass/volume)Ordered By: Aryan Ramirez on 03-10-2025 Calcium [Mass/Vol] 8.5 mg/dL 7.6-11.0 [facility] Serum or plasma urea nitroge n measurement (mass/volume)Ordered By: Aryan Ramirez on 03-10-2025 Urea nitrogen [Mass/Vol] 25 mg/dL High 4-19 [facility] Sodium levelOrdered By: Valeria Ramirez on 03-10-2025 Sodium [Moles/Vol] 136 mmol/L 133-145 [facility] White blood cell (WBC) count Ordered By: Aryan Ramirez on 03-10-2025 WBC (Bld) [#/Vol] 11.9 10*3/uL High 4.4-11.0 [facility] CBC W/Diff, Automatedon 05- Absolute Neut Normal 2.0-7.7 [facility] Comment on above: Result Comment: Canc elled via OM: Physician Authorized Performed By: #### L 100.0100, L500.4050 ####[facility] [address] [place], [address] HCT Normal 40-54 [facility] Comment on above: Result Comment: Canc elled via OM: Physician Authorized Performed By: #### L 100.0100, L500.4050 ####[facility] [address] [place], [address] HGB Normal 13.0-16.5 [facility] Comment on above: Result Comment: Canc elled via OM: Physician Authorized Performed By: #### L 100.0100, L500.4050 ####[facility] [address] [place], [address] MCH Normal 27.0-32.0 [facility] Comment on above: Result Comment: Canc elled via OM: Physician Authorized Performed By: #### L 100.0100, L500.4050 ####[facility] [address] [place], [address] MCHC Normal 32-36 [facility] Comment on above: Result Comment: Canc elled via OM: Physician Authorized Performed By: #### L 100.0100, L500.4050 ####[facility] [address] [place], [address] MCV Normal 80-94 [facility] Comment on above: Result Comment: Canc elled via OM: Physician Authorized Performed By: #### L 100.0100, L500.4050 ####[facility] [address] [place], [address] NEUT% Normal 47-70 [facility] Comment on above: Result Comment: Canc elled via OM: Physician Authorized Performed By: #### L 100.0100, L500.4050 ####[facility] [address] [place], [address] PLT Normal 150-450 [facility] Comment on above: Result Comment: Canc elled via OM: Physician Authorized Performed By: #### L 100.0100, L500.4050 ####[facility] [address] [place], [address] RBC Normal 4.6-6.2 [facility] Comment on above: Result Comment: Canc elled via OM: Physician Authorized Performed By: #### L 100.0100, L500.4050 ####[facility] [address] [place], [address] RDW CV Normal 11.6-14.6 [facility] Comment on above: Result Comment: Canc elled via OM: Physician Authorized Performed By: #### L 100.0100, L500.4050 ####[facility] [address] [place], [address] RDW SD Normal 35.1-43.9 [facility] Comment on above: Result Comment: Canc elled via OM: Physician Authorized Performed By: #### L 100.0100, L500.4050 ####[facility] [address] [place], [address] WBC Normal 4.4-11.0 [facility] Comment on above: Result Comment: Canc elled via OM: Physician Authorized Performed By: #### L 100.0100, L500.4050 ####[facility] [address] [place], [address] CT Chest, Abd, Pel w/Contras ton 03-04-2025 CT Chest, Abd, Pel w/Contrast Normal [facility] Comprehensive Metabolic Prof ilon 03-04-2025 ALB Normal 3.5-5.0 [facility] Comment on above: Result Comment: Canc elled via OM: Physician Authorized Performed By: #### L 100.0100, L500.4050 ####[facility] [address] [place], [address] ALK PHOS Normal 40-129 [facility] Comment on above: Result Comment: Canc elled via OM: Physician Authorized Performed By: #### L 100.0100, L500.4050 ####[facility] [address] [place], [address] ALT Normal <=46 [facility] Comment on above: Result Comment: Canc elled via OM: Physician Authorized Performed By: #### L 100.0100, L500.4050 ####[facility] [address] [place], [address] AST Normal <=37 [facility] Comment on above: Result Comment: Canc elled via OM: Physician Authorized Performed By: #### L 100.0100, L500.4050 ####[facility] [address] [place], [address] BUN Normal 4-19 [facility] Comment on above: Result Comment: Canc elled via OM: Physician Authorized Performed By: #### L 100.0100, L500.4050 ####[facility] [address] [place], [address] BUN/CRE Normal 10-20 [facility] Comment on above: Result Comment: Canc elled via OM: Physician Authorized Performed By: #### L 100.0100, L500.4050 ####[facility] [address] [place], [address] Calcium Normal 7.6-11.0 [facility] Comment on above: Result Comment: Canc elled via OM: Physician Authorized Performed By: #### L 100.0100, L500.4050 ####[facility] [address] [place], [address] CL Normal 98-108 [facility] Comment on above: Result Comment: Canc elled via OM: Physician Authorized Performed By: #### L 100.0100, L500.4050 ####[facility] [address] [place], [address] CO2 Normal 21.0-32.0 [facility] Comment on above: Result Comment: Canc elled via OM: Physician Authorized Performed By: #### L 100.0100, L500.4050 ####[facility] [address] [place], [address] CREAT,SERUM Normal 0.70-1.20 [facility] Comment on above: Result Comment: Canc elled via OM: Physician Authorized Performed By: #### L 100.0100, L500.4050 ####[facility] [address] [place], [address] eGFR Normal >60 [facility] Comment on above: Result Comment: Canc elled via OM: Physician Authorized Performed By: #### L 100.0100, L500.4050 ####[facility] [address] [place], [address] GAP Normal 5-15 [facility] Comment on above: Result Comment: Canc elled via OM: Physician Authorized Performed By: #### L 100.0100, L500.4050 ####[facility] [address] [place], [address] GLU Normal 70-99 [facility] Comment on above: Result Comment: Canc elled via OM: Physician Authorized Performed By: #### L 100.0100, L500.4050 ####[facility] [address] [place], [address] Potassium Normal 3.3-5.1 [facility] Comment on above: Result Comment: Canc elled via OM: Physician Authorized Performed By: #### L 100.0100, L500.4050 ####[facility] [address] [place], [address] T BILI Normal 0.00-1.30 [facility] Comment on above: Result Comment: Canc elled via OM: Physician Authorized Performed By: #### L 100.0100, L500.4050 ####[facility] [address] [place], [address] T PROT Normal 5.9-8.4 [facility] Comment on above: Result Comment: Canc elled via OM: Physician Authorized Performed By: #### L 100.0100, L500.4050 ####[facility] [address] [place], [address] Comprehensive Metabolic Profil Normal 133-145 [facility] Comment on above: Result Comment: Canc elled via OM: Physician Authorized Performed By: #### L 100.0100, L500.4050 ####[facility] [address] [place], [address] Absolute lymphocyte countOrd ered By: Judah Montgomery on 02-26-2025 Lymphocytes Auto (Unsp spec) [#/Vol] 0.87 10*3/uL 0.83-4.51 [facility] Absolute neutrophil countOrd ered By: Judah Montgomery on 02-26-2025 Neutrophils (Bld) [#/Vol] 7.1 10*3/uL 2.0-7.7 [facility] Activated partial thrombopla stin time (aPTT) in platelet poor plasma by coagulation aOrdered By: Judah Montgomery on 02-26-2025 aPTT Coag (PPP) [Time] 32.4 s 24.1-36.2 [facility] Automated lymphocyte count a s percentage of total leukocytesOrdered By: Judah Montgomery on 02-26-2025 Lymphocytes/100 WBC Auto (Unsp spec) 9.2 % Low 19-41 [facility] Basophil percentageOrdered B y: Judah Montgomery on 02-26-2025 Basophils/100 WBC (Bld) 0.7 % 0-1 [facility] Biopsy/Inj or Needle Placeme nton 02-26-2025 Biopsy/Inj or Needle Placement Normal [facility] Blood spherocyte detection b y light microscopyOrdered By: Judah Montgomery on 02-26-2025 Spherocytes LM Ql (Bld) RARE High [facility] CBC W/Diff, Automatedon 02-06 SPHEROCYTE RARE Abnormal [facility] Comment on above: Performed By: #### L 100.0100, L300.3900, L300.4310 ####[facility] [address] [address] [place], [place], [id number] Anisocytosis Ql (Bld) 2+ Normal [facility] Comment on above: Performed By: #### L 100.0100, L300.3900, L300.4310 ####[facility] [address] [place], [place], [id number] Eosinophil percentageOrdered By: Judah Montgomery on 02-26-2025 Eosinophils/100 WBC (Bld) 5.2 % High 0-5 [facility] Erythrocyte distribution wid th ratioOrdered By: Judah Montgomery on 02-26-2025 Erythrocyte distribution width (RBC) [Ratio] 21.6 % High 11.6-14.6 [facility] Erythrocyte distribution wid th standard deviationOrdered By: Judah Montgomery on 02-26-2025 Erythrocyte distribution width (RBC) [Ratio] 56.4 fl High 35.1-43.9 [facility] Hematocrit Auto (Bld) [Volum e fraction]Ordered By: Judah Montgomery on 02-26-2025 Hematocrit (Bld) [Volume fraction] 29.9 % Low 40-54 [facility] Hemoglobin measurementOrdere d By: Judah Montgomery on 02-26-2025 Hemoglobin (Bld) [Mass/Vol] 8.8 g/dL Low 13.0-16.5 [facility] Immature granulocytes/100 WB C Auto (Bld)Ordered By: Judah Montgomery on 02-26-2025 Immature granulocytes/100 WBC (Bld) 0.300 % 0.0-0.9 [facility] Comment on above: IG% - Immature Granu locytes (promyelocytes, myelocytes and metamyelocytes) > 1% indicates that a LEFT SHIFT is Present. International normalized rat io (INR) calculationOrdered By: Judah Montgomery on 02-26-2025 INR Coag (Bld) [Relative time] 1.2 {INR} [facility] Laboratory - Hematology and Cell countsOrdered By: Judah Montgomery on 02-26-2025 Anisocytosis Ql (Bld) 2+ [facility] MCV (mean corpuscular volume ) determinationOrdered By: Judah Montgomery on 02-26-2025 MCV (RBC) [Entitic vol] 75.5 fL Low 80-94 [facility] Mean corpuscular hemoglobin (MCH) determinationOrdered By: Judah Montgomery on 02-26-2025 MCH (RBC) [Entitic mass] 22.2 pg Low 27.0-32.0 [facility] Mean corpuscular hemoglobin concentration (MCHC) determinationOrdered By: Judah Montgomery on 02-26-2025 MCHC (RBC) [Mass/Vol] 29.4 g/dL Low 32-36 [facility] Mean platelet volume determi nationOrdered By: Judah Montgomery on 02-26-2025 Platelet mean volume (Bld) [Entitic vol] 9.6 fL 6.2-12.0 [facility] Monocyte percentageOrdered B y: Judah Montgomery on 02-26-2025 Monocytes/100 WBC (Bld) 9.2 % 0-10 [facility] Neutrophil percentageOrdered By: Judah Montgomery on 02-26-2025 Neutrophils/100 WBC (Bld) 75.4 % High 47-70 [facility] Nucleated red blood cell per centageOrdered By: Judah Montgomery on 02-26-2025 Nucleated RBC/100 WBC (Bld) [Ratio] 0 % 0-5 [facility] Partial Thromboplast Timeon 02-26-2025 aPTT Coag (Bld) [Time] 32.4 s Normal 24.1-36.2 [facility] Comment on above: Performed By: #### L 100.0100, L300.3900, L300.4310 ####[facility] [address] [place], [address] Platelet countOrdered By: Isidoro Montgomery on 02-26-2025 Platelets (Bld) [#/Vol] 305 10*3/uL 150-450 [facility] Prothrombin Time w/INRon INR Coag (PPP) [Relative time] 1.2 {INR} Normal [facility] Comment on above: Performed By: #### L 100.0100, L300.3900, L300.4310 ####[facility] [address] [place], [address] PT Coag (PPP) [Time] 15.1 s High 11.7-14.9 [facility] Comment on above: Performed By: #### L 100.0100, L300.3900, L300.4310 ####[facility] [address] [place], [address] Prothrombin timeOrdered By: Judah Montgomery on 02-26-2025 PT Coag (PPP) [Time] 15.1 s High 11.7-14.9 [facility] RBC Auto (Bld) [#/Vol]Ordere d By: Judah Montgomery on 02-26-2025 RBC (Bld) [#/Vol] 3.96 10*6/uL Low 4.6-6.2 [facility] Special Stain Group IIon Special Stain Group II Normal [facility] Comment on above: Performed By: #### P SSII ####[facility] [address] [place], [address] White blood cell (WBC) count Ordered By: Judah Montgomery on 02-26-2025 WBC (Bld) [#/Vol] 9.4 10*3/uL 4.4-11.0 [facility] CBC W/Diff, Automatedon 02-05 Absolute Neut Normal 2.0-7.7 [facility] Comment on above: Result Comment: NO S PECIMENS COLLECTED Performed By: #### L 100.0100, L500.4050 ####[facility] [address] [place], [address] HCT Normal 40-54 [facility] Comment on above: Result Comment: NO S PECIMENS COLLECTED Performed By: #### L 100.0100, L500.4050 ####[facility] [address] [place], [address] HGB Normal 13.0-16.5 [facility] Comment on above: Result Comment: NO S PECIMENS COLLECTED Performed By: #### L 100.0100, L500.4050 ####[facility] [address] [place], [address] MCH Normal 27.0-32.0 [facility] Comment on above: Result Comment: NO S PECIMENS COLLECTED Performed By: #### L 100.0100, L500.4050 ####[facility] [address] [place], [address] MCHC Normal 32-36 [facility] Comment on above: Result Comment: NO S PECIMENS COLLECTED Performed By: #### L 100.0100, L500.4050 ####[facility] [address] [place], [address] MCV Normal 80-94 [facility] Comment on above: Result Comment: NO S PECIMENS COLLECTED Performed By: #### L 100.0100, L500.4050 ####[facility] [address] [place], [address] NEUT% Normal 47-70 [facility] Comment on above: Result Comment: NO S PECIMENS COLLECTED Performed By: #### L 100.0100, L500.4050 ####[facility] [address] [place], [address] PLT Normal 150-450 [facility] Comment on above: Result Comment: NO S PECIMENS COLLECTED Performed By: #### L 100.0100, L500.4050 ####[facility] [address] [place], [address] RBC Normal 4.6-6.2 [facility] Comment on above: Result Comment: NO S PECIMENS COLLECTED Performed By: #### L 100.0100, L500.4050 ####[facility] [address] [place], [address] RDW CV Normal 11.6-14.6 [facility] Comment on above: Result Comment: NO S PECIMENS COLLECTED Performed By: #### L 100.0100, L500.4050 ####[facility] [address] [place], [address] RDW SD Normal 35.1-43.9 [facility] Comment on above: Result Comment: NO S PECIMENS COLLECTED Performed By: #### L 100.0100, L500.4050 ####[facility] [address] [place], [address] WBC Normal 4.4-11.0 [facility] Comment on above: Result Comment: NO S PECIMENS COLLECTED Performed By: #### L 100.0100, L500.4050 ####[facility] [address] [place], [address] Comprehensive Metabolic Prof rula 02-18-2025 ALB Normal 3.5-5.0 [facility] Comment on above: Result Comment: NO S PECIMENS COLLECTED Performed By: #### L 100.0100, L500.4050 ####[facility] [address] [place], [address] ALK PHOS Normal 40-129 [facility] Comment on above: Result Comment: NO S PECIMENS COLLECTED Performed By: #### L 100.0100, L500.4050 ####[facility] [address] [place], [address] ALT Normal <=46 [facility] Comment on above: Result Comment: NO S PECIMENS COLLECTED Performed By: #### L 100.0100, L500.4050 ####[facility] [address] [place], [address] AST Normal <=37 [facility] Comment on above: Result Comment: NO S PECIMENS COLLECTED Performed By: #### L 100.0100, L500.4050 ####[facility] [address] [place], [address] BUN Normal 4-19 [facility] Comment on above: Result Comment: NO S PECIMENS COLLECTED Performed By: #### L 100.0100, L500.4050 ####[facility] [address] [place], [address] BUN/CRE Normal 10-20 [facility] Comment on above: Result Comment: NO S PECIMENS COLLECTED Performed By: #### L 100.0100, L500.4050 ####[facility] [address] [place], [address] Calcium Normal 7.6-11.0 [facility] Comment on above: Result Comment: NO S PECIMENS COLLECTED Performed By: #### L 100.0100, L500.4050 ####[facility] [address] [place], [address] CL Normal 98-108 [facility] Comment on above: Result Comment: NO S PECIMENS COLLECTED Performed By: #### L 100.0100, L500.4050 ####[facility] [address] [place], [address] CO2 Normal 21.0-32.0 [facility] Comment on above: Result Comment: NO S PECIMENS COLLECTED Performed By: #### L 100.0100, L500.4050 ####[facility] [address] [place], [address] CREAT,SERUM Normal 0.70-1.20 [facility] Comment on above: Result Comment: NO S PECIMENS COLLECTED Performed By: #### L 100.0100, L500.4050 ####[facility] [address] [place], [address] eGFR Normal >60 [facility] Comment on above: Result Comment: NO S PECIMENS COLLECTED Performed By: #### L 100.0100, L500.4050 ####[facility] [address] [place], [address] GAP Normal 5-15 [facility] Comment on above: Result Comment: NO S PECIMENS COLLECTED Performed By: #### L 100.0100, L500.4050 ####[facility] [address] [place], [address] GLU Normal 70-99 [facility] Comment on above: Result Comment: NO S PECIMENS COLLECTED Performed By: #### L 100.0100, L500.4050 ####[facility] [address] [place], [address] Potassium Normal 3.3-5.1 [facility] Comment on above: Result Comment: NO S PECIMENS COLLECTED Performed By: #### L 100.0100, L500.4050 ####[facility] [address] [place], [address] T BILI Normal 0.00-1.30 [facility] Comment on above: Result Comment: NO S PECIMENS COLLECTED Performed By: #### L 100.0100, L500.4050 ####[facility] [address] [place], [address] T PROT Normal 5.9-8.4 [facility] Comment on above: Result Comment: NO S PECIMENS COLLECTED Performed By: #### L 100.0100, L500.4050 ####[facility] [address] [place], [address] Comprehensive Metabolic Profil Normal 133-145 [facility] Comment on above: Result Comment: NO S PECIMENS COLLECTED Performed By: #### L 100.0100, L500.4050 ####[facility] [address] [place], [address] Internal Medicine Office Vis iton 02-13-2025 Internal Medicine Office Visit Normal [facility] CXR for Line Placementon CXR for Line Placement Normal [facility] Discharge Instructionon Discharge Instruction Normal [facility] MR/POSTOP.ANEon 02-11-2025 MR/POSTOP.ANE Normal [facility] MR/WNAVHKEW8sp 02-11-2025 MR/POSTOPAN2 Normal [facility] Operative Reporton Operative Report Normal [facility] MR/PAT.ANEon 02-10-2025 MR/PAT.ANE Normal [facility] Surgery Visit Reporton 02-09 Surgery Visit Report Normal [facility] 12 Lead EKG performed by TADEO on 02-06-2025 12 Lead EKG performed by BMS Normal [facility] Cardiology Visit Reporton Cardiology Visit Report Normal [facility] Oncology Visit Reporton Oncology Visit Report Normal [facility] Absolute lymphocyte countOrd ered By: Trish Ortiz on 02-03-2025 Lymphocytes Auto (Unsp spec) [#/Vol] 1.01 10*3/uL 0.83-4.51 [facility] Absolute neutrophil countOrd ered By: [facility] on 02-03-2025 Neutrophils (Bld) [#/Vol] 6.6 10*3/uL 2.0-7.7 [facility] Anion gap in Serum or Plasma Ordered By: Trish Ortiz on 02-03-2025 Anion gap [Moles/Vol] 9 mmol/L 5-15 [facility] Automated lymphocyte count a s percentage of total leukocytesOrdered By: [facility] on 02-03-2025 Lymphocytes/100 WBC Auto (Unsp spec) 11.0 % Low 19-41 [facility] BUN/creatinine ratioOrdered By: [facility] Diana on 02-03-2025 Urea nitrogen/Creatinine [Mass ratio] 30.0 mg/mg High 10-20 [facility] Basophil percentageOrdered B y: Trish Ortiz on 02-03-2025 Basophils/100 WBC (Bld) 1.0 % 0-1 [facility] Bilirubin, totalOrdered By: [facility] on 02-03-2025 Bilirubin [Mass/Vol] 1.44 mg/dL High 0.00-1.30 [facility] CBC W/Diff, Automatedon 01-07 Absolute Lymph 1.01 X10 3/uL Normal 0.83-4.51 [facility] Comment on above: Performed By: #### L 500.4050, L503.6550, L501.5200, L100.0100, L501.2300, L503.6030 ####[facility] [address] [place], [place], [id number] Absolute Neut 6.6 X10 3/uL Normal 2.0-7.7 [facility] Comment on above: Performed By: #### L 500.4050, L503.6550, L501.5200, L100.0100, L501.2300, L503.6030 ####[facility] [address] [place], [address] Basophils/100 WBC (Bld) 1.0 % Normal 0-1 [facility] Comment on above: Performed By: #### L 500.4050, L503.6550, L501.5200, L100.0100, L501.2300, L503.6030 ####[facility] [address] [place], [address] Eosinophils/100 WBC (Bld) 4.4 % Normal 0-5 [facility] Comment on above: Performed By: #### L 500.4050, L503.6550, L501.5200, L100.0100, L501.2300, L503.6030 ####[facility] [address] [place], [address] Erythrocyte distribution width (RBC) [Ratio] 20.0 % High 11.6-14.6 [facility] Comment on above: Performed By: #### L 500.4050, L503.6550, L501.5200, L100.0100, L501.2300, L503.6030 ####[facility] [address] [place], [address] Hematocrit (Bld) [Volume fraction] 29.0 % Low 40-54 [facility] Comment on above: Performed By: #### L 500.4050, L503.6550, L501.5200, L100.0100, L501.2300, L503.6030 ####[facility] [address] [place], [address] Hemoglobin (Bld) [Mass/Vol] 8.3 g/dL Low 13.0-16.5 [facility] Comment on above: Performed By: #### L 500.4050, L503.6550, L501.5200, L100.0100, L501.2300, L503.6030 ####[facility] [address] [place], [address] IG% 0.400 Normal 0.0-0.9 [facility] Comment on above: Result Comment: IG% - Immature Granulocytes (promyelocytes, myelocytes andmetamyelocytes) > 1% indicates that a LEFT SHIFT is Present. Performed By: #### L 500.4050, L503.6550, L501.5200, L100.0100, L501.2300, L503.6030 ####[facility] [address] [place], [address] Lymphocytes/100 WBC (Bld) 11.0 % Low 19-41 [facility] Comment on above: Performed By: #### L 500.4050, L503.6550, L501.5200, L100.0100, L501.2300, L503.6030 ####[facility] [address] [place], [address] MCH (RBC) [Entitic mass] 21.5 pg Low 27.0-32.0 [facility] Comment on above: Performed By: #### L 500.4050, L503.6550, L501.5200, L100.0100, L501.2300, L503.6030 ####[facility] [address] [place], [address] MCHC (RBC) [Mass/Vol] 28.6 g/dL Low 32-36 [facility] Comment on above: Performed By: #### L 500.4050, L503.6550, L501.5200, L100.0100, L501.2300, L503.6030 ####[facility] [address] [place], [address] MCV (RBC) [Entitic vol] 75.1 fL Low 80-94 [facility] Comment on above: Performed By: #### L 500.4050, L503.6550, L501.5200, L100.0100, L501.2300, L503.6030 ####[facility] [address] [place], [address] Monocytes/100 WBC (Bld) 11.3 % High 0-10 [facility] Comment on above: Performed By: #### L 500.4050, L503.6550, L501.5200, L100.0100, L501.2300, L503.6030 ####[facility] [address] [place], [address] Neutrophils/100 WBC (Bld) 71.9 % High 47-70 [facility] Comment on above: Performed By: #### L 500.4050, L503.6550, L501.5200, L100.0100, L501.2300, L503.6030 ####[facility] [address] [place], [address] Nucleated RBC (Bld) [#/Vol] 0 10*3/uL Normal 0-5 [facility] Comment on above: Performed By: #### L 500.4050, L503.6550, L501.5200, L100.0100, L501.2300, L503.6030 ####[facility] [address] [place], [address] Platelet mean volume (Bld) [Entitic vol] 8.8 fL Normal 6.2-12.0 [facility] Comment on above: Performed By: #### L 500.4050, L503.6550, L501.5200, L100.0100, L501.2300, L503.6030 ####[facility] [address] [place], [address] Platelets (Bld) [#/Vol] 351 10*3/uL Normal 150-450 [facility] Comment on above: Performed By: #### L 500.4050, L503.6550, L501.5200, L100.0100, L501.2300, L503.6030 ####[facility] [address] [place], [address] RBC (Bld) [#/Vol] 3.86 10*6/uL Low 4.6-6.2 [facility] Comment on above: Performed By: #### L 500.4050, L503.6550, L501.5200, L100.0100, L501.2300, L503.6030 ####[facility] [address] [place], [address] RDW SD 54.7 fl High 35.1-43.9 [facility] Comment on above: Performed By: #### L 500.4050, L503.6550, L501.5200, L100.0100, L501.2300, L503.6030 ####[facility] [address] [place], [address] WBC (Bld) [#/Vol] 9.2 10*3/uL Normal 4.4-11.0 [facility] Comment on above: Performed By: #### L 500.4050, L503.6550, L501.5200, L100.0100, L501.2300, L503.6030 ####[facility] [address] [place], [address] Carbon dioxide, total [Moles /volume] in Central venous bloodOrdered By: Trish Ortiz on 02-03-2025 CO2 [Moles/Vol] 18.7 mmol/L Low 21.0-32.0 [facility] Chloride assayOrdered By: Trent Ortiz on 02-03-2025 Chloride [Moles/Vol] 107 mmol/L 98-108 [facility] Comprehensive Metabolic Prof ilon 02-03-2025 Albumin [Mass/Vol] 3.2 g/dL Low 3.5-5.0 [facility] Comment on above: Performed By: #### L 500.4050, L503.6550, L501.5200, L100.0100, L501.2300, L503.6030 ####[facility] [address] [place], [address] Albumin/Globulin [Mass ratio] 0.7 {ratio} Low 0.9-2.4 [facility] Comment on above: Performed By: #### L 500.4050, L503.6550, L501.5200, L100.0100, L501.2300, L503.6030 ####[facility] [address] [place], [address] ALK PHOS 663 U/L High 40-129 [facility] Comment on above: Performed By: #### L 500.4050, L503.6550, L501.5200, L100.0100, L501.2300, L503.6030 ####[facility] [address] [place], [address] ALT [Catalytic activity/Vol] 69 U/L High <=46 [facility] Comment on above: Performed By: #### L 500.4050, L503.6550, L501.5200, L100.0100, L501.2300, L503.6030 ####[facility] [address] [place], [address] AST [Catalytic activity/Vol] 76 U/L High <=37 [facility] Comment on above: Performed By: #### L 500.4050, L503.6550, L501.5200, L100.0100, L501.2300, L503.6030 ####[facility] [address] [place], [address] Bilirubin [Mass/Vol] 1.44 mg/dL High 0.00-1.30 [facility] Comment on above: Performed By: #### L 500.4050, L503.6550, L501.5200, L100.0100, L501.2300, L503.6030 ####[facility] [address] [place], [address] BUN/CRE 30.0 RATIO High 10-20 [facility] Comment on above: Performed By: #### L 500.4050, L503.6550, L501.5200, L100.0100, L501.2300, L503.6030 ####[facility] [address] [place], [address] Calcium [Mass/Vol] 8.3 mg/dL Normal 7.6-11.0 [facility] Comment on above: Performed By: #### L 500.4050, L503.6550, L501.5200, L100.0100, L501.2300, L503.6030 ####[facility] [address] [place], [address] Chloride [Moles/Vol] 107 mmol/L Normal 98-108 [facility] Comment on above: Performed By: #### L 500.4050, L503.6550, L501.5200, L100.0100, L501.2300, L503.6030 ####[facility] [address] [place], [address] CO2 [Moles/Vol] 18.7 mmol/L Low 21.0-32.0 [facility] Comment on above: Performed By: #### L 500.4050, L503.6550, L501.5200, L100.0100, L501.2300, L503.6030 ####[facility] [address] [place], [address] Creatinine [Mass/Vol] 0.82 mg/dL Normal 0.70-1.20 [facility] Comment on above: Performed By: #### L 500.4050, L503.6550, L501.5200, L100.0100, L501.2300, L503.6030 ####[facility] [address] [place], [address] ECRCL 121.65 ml/min Normal 50-250 [facility] Comment on above: Performed By: #### L 500.4050, L503.6550, L501.5200, L100.0100, L501.2300, L503.6030 ####[facility] [address] [place], [address] GAP 9 Normal 5-15 [facility] Comment on above: Performed By: #### L 500.4050, L503.6550, L501.5200, L100.0100, L501.2300, L503.6030 ####[facility] [address] [place], [address] GFR/1.73 sq M.predicted among non-blacks MDRD (S/P/Bld) [Vol rate/Area] 104 mL/min/{1.73_m2} Normal >60 [facility] Comment on above: Result Comment: mL/m in/1.73m2 CKD-EPI Creatinine Equation (2020) Performed By: #### L 500.4050, L503.6550, L501.5200, L100.0100, L501.2300, L503.6030 ####[facility] [address] [place], [address] Globulin (S) [Mass/Vol] 4.7 g/dL High 2.2-4.2 [facility] Comment on above: Performed By: #### L 500.4050, L503.6550, L501.5200, L100.0100, L501.2300, L503.6030 ####[facility] [address] [place], [address] Glucose [Mass/Vol] 93 mg/dL Normal 70-99 [facility] Comment on above: Performed By: #### L 500.4050, L503.6550, L501.5200, L100.0100, L501.2300, L503.6030 ####[facility] [address] [place], [address] Potassium [Moles/Vol] 4.2 mmol/L Normal 3.3-5.1 [facility] Comment on above: Performed By: #### L 500.4050, L503.6550, L501.5200, L100.0100, L501.2300, L503.6030 ####[facility] [address] [place], [address] Sodium [Moles/Vol] 134 mmol/L Normal 133-145 [facility] Comment on above: Performed By: #### L 500.4050, L503.6550, L501.5200, L100.0100, L501.2300, L503.6030 ####[facility] [address] [place], [address] T PROT 7.9 g/dL Normal 5.9-8.4 [facility] Comment on above: Performed By: #### L 500.4050, L503.6550, L501.5200, L100.0100, L501.2300, L503.6030 ####[facility] [address] [place], [address] Urea nitrogen [Mass/Vol] 25 mg/dL High 4-19 [facility] Comment on above: Performed By: #### L 500.4050, L503.6550, L501.5200, L100.0100, L501.2300, L503.6030 ####[facility] [address] [place], [place], [address] Eosinophil percentageOrdered By: Trish Ortiz on 02-03-2025 Eosinophils/100 WBC (Bld) 4.4 % 0-5 [facility] Erythrocyte distribution wid th ratioOrdered By: [facility] on 02-03-2025 Erythrocyte distribution width (RBC) [Ratio] 20.0 % High 11.6-14.6 [facility] Erythrocyte distribution wid th standard deviationOrdered By: [facility] on 02-03-2025 Erythrocyte distribution width (RBC) [Ratio] 54.7 fl High 35.1-43.9 [facility] Ferritinon 02-03-2025 Ferritin [Mass/Vol] 14 ng/mL Low 37-417 [facility] Comment on above: Performed By: #### L 500.4050, L503.6550, L501.5200, L100.0100, L501.2300, L503.6030 ####[facility] [address] [facility]. [place], [place], [id number] Glomerular filtration rate ( GFR) estimation/1.73 sq m using serum, plasma, or whole bOrdered By: Trish Ortiz on 02-03-2025 GFR/1.73 sq M.predicted among non-blacks MDRD (S/P/Bld) [Vol rate/Area] 104 mL/min/{1.73_m2} >60 [facility] Comment on above: mL/min/1.73m2 CKD-EP I Creatinine Equation (2020) Hematocrit Auto (Bld) [Volum e fraction]Ordered By: Trish Ortiz on 02-03-2025 Hematocrit (Bld) [Volume fraction] 29.0 % Low 40-54 [facility] Hemoglobin measurementOrdere d By: Trish Ortiz on 02-03-2025 Hemoglobin (Bld) [Mass/Vol] 8.3 g/dL Low 13.0-16.5 [facility] Immature granulocytes/100 WB C Auto (Bld)Ordered By: Trish Ortiz on 02-03-2025 Immature granulocytes/100 WBC (Bld) 0.400 % 0.0-0.9 [facility] Comment on above: IG% - Immature Granu locytes (promyelocytes, myelocytes and metamyelocytes) > 1% indicates that a LEFT SHIFT is Present. Iron measurement (mass/mass) Ordered By: Trish Ortiz on 02-03-2025 Iron (Unsp spec) [Mass/Mass] 14 ug/dL Low 65-175 [facility] Iron+Iron Binding Capacityon 02-03-2025 Iron [Mass/Vol] 14 ug/dL Low 65-175 [facility] Comment on above: Performed By: #### L 500.4050, L503.6550, L501.5200, L100.0100, L501.2300, L503.6030 ####[facility] [address] [facility] [address] IRON SATURATION 4.0 Low 9-55 [facility] Comment on above: Performed By: #### L 500.4050, L503.6550, L501.5200, L100.0100, L501.2300, L503.6030 ####[facility] [address] [place], [address] TIBC 400 ug/dL Normal 250-450 [facility] Comment on above: Performed By: #### L 500.4050, L503.6550, L501.5200, L100.0100, L501.2300, L503.6030 ####[facility] [address] [place], [address] UIBC 386 ug/dL Normal 228-428 [facility] Comment on above: Performed By: #### L 500.4050, L503.6550, L501.5200, L100.0100, L501.2300, L503.6030 ####[facility] [address] [place], [address] Laboratory - Chemistry and C hemistry - challengeOrdered By: Trish Ortiz on 02-03-2025 AST [Catalytic activity/Vol] 76 U/L High <38 [facility] MCV (mean corpuscular volume ) determinationOrdered By: Trish Ortiz on 02-03-2025 MCV (RBC) [Entitic vol] 75.1 fL Low 80-94 [facility] Magnesiumon 02-03-2025 Magnesium [Mass/Vol] 1.4 mg/dL Low 1.5-2.2 [facility] Comment on above: Performed By: #### L 500.4050, L503.6550, L501.5200, L100.0100, L501.2300, L503.6030 ####[facility] [address] [place], [place], [address] Magnesium measurement (mass/ volume)Ordered By: Trish Ortiz on 02-03-2025 Magnesium (Unsp spec) [Mass/Vol] 1.4 mg/dL Low 1.5-2.2 [facility] Mean corpuscular hemoglobin (MCH) determinationOrdered By: Trish Ortiz on 02-03-2025 MCH (RBC) [Entitic mass] 21.5 pg Low 27.0-32.0 [facility] Mean corpuscular hemoglobin concentration (MCHC) determinationOrdered By: Trish Ortiz on 02-03-2025 MCHC (RBC) [Mass/Vol] 28.6 g/dL Low 32-36 [facility] Mean platelet volume determi nationOrdered By: Trish Ortiz on 02-03-2025 Platelet mean volume (Bld) [Entitic vol] 8.8 fL 6.2-12.0 [facility] Monocyte percentageOrdered B y: Trish Ortiz on 02-03-2025 Monocytes/100 WBC (Bld) 11.3 % High 0-10 [facility] Neutrophil percentageOrdered By: Trish Ortiz on 02-03-2025 Neutrophils/100 WBC (Bld) 71.9 % High 47-70 [facility] No Panel InformationOrdered By: Trish Ortiz on 02-03-2025 Unsaturated Iron Binding Capacity 386 ug/dL 228-428 [facility] Nucleated red blood cell per centageOrdered By: Trish Ortiz on 02-03-2025 Nucleated RBC/100 WBC (Bld) [Ratio] 0 % 0-5 [facility] Oncology Visit Reporton 01-07 Oncology Visit Report Normal [facility] Phosphoruson 02-03-2025 Phosphate [Mass/Vol] 3.2 mg/dL Normal 2.7-4.5 [facility] Comment on above: Performed By: #### L 500.4050, L503.6550, L501.5200, L100.0100, L501.2300, L503.6030 ####[facility] [address] [place], [place], [id number] Platelet countOrdered By: Trent Ortiz on 02-03-2025 Platelets (Bld) [#/Vol] 351 10*3/uL 150-450 [facility] Potassium measurement (mass/ volume)Ordered By: Trish Ortiz on 02-03-2025 Potassium (Unsp spec) [Mass/Vol] 4.2 mmol/L 3.3-5.1 [facility] RBC Auto (Bld) [#/Vol]Ordere d By: Trish Ortiz on 02-03-2025 RBC (Bld) [#/Vol] 3.86 10*6/uL Low 4.6-6.2 [facility] Serum creatinine measurement (mass/volume)Ordered By: Trish Ortiz on 02-03-2025 Creatinine [Mass/Vol] 0.82 mg/dL 0.70-1.20 [facility] Serum globulin measurementOr dered By: Trish Ortiz on 02-03-2025 Globulin (S) [Mass/Vol] 4.7 g/dL High 2.2-4.2 [facility] Serum glucose measurement (m ass/volume)Ordered By: Trish Ortiz on 02-03-2025 Glucose [Mass/Vol] 93 mg/dL 70-99 [facility] Serum or plasma alanine arroyo otransferase (ALT) measurementOrdered By: Trish Ortiz on 02-03-2025 ALT [Catalytic activity/Vol] 69 U/L High <47 [facility] Serum or plasma albumin bernard urement (mass/volume)Ordered By: Trish Ortiz on 02-03-2025 Albumin [Mass/Vol] 3.2 g/dL Low 3.5-5.0 [facility] Serum or plasma albumin/glob ulin mass ratioOrdered By: Trish Ortiz on 02-03-2025 Albumin/Globulin [Mass ratio] 0.7 {ratio} Low 0.9-2.4 [facility] Serum or plasma alkaline rubio sphatase measurementOrdered By: Trish Ortiz on 02-03-2025 ALP [Catalytic activity/Vol] 663 U/L High 40-129 [facility] Serum or plasma calcium bernard urement (mass/volume)Ordered By: Trish Ortiz on 02-03-2025 Calcium [Mass/Vol] 8.3 mg/dL 7.6-11.0 [facility] Serum or plasma ferritin filippo surement (mass/volume)Ordered By: Trish Ortiz on 02-03-2025 Ferritin [Mass/Vol] 14 ng/mL Low 37-417 [facility] Serum or plasma iron saturat ion measurement (mass fraction)Ordered By: Trish Ortiz on 02-03-2025 Iron saturation [Mass fraction] 4.0 % Low 9-55 [facility] Serum or plasma urea nitroge n measurement (mass/volume)Ordered By: Trish Ortiz on 02-03-2025 Urea nitrogen [Mass/Vol] 25 mg/dL High 4-19 [facility] Sodium levelOrdered By: Mala Ortiz on 02-03-2025 Sodium [Moles/Vol] 134 mmol/L 133-145 [facility] Total proteinOrdered By: Luciano Ortiz on 02-03-2025 Protein [Mass/Vol] 7.9 g/dL 5.9-8.4 [facility] White blood cell (WBC) count Ordered By: Trish Ortiz on 02-03-2025 WBC (Bld) [#/Vol] 9.2 10*3/uL 4.4-11.0 [facility] BASIC METABOLIC PANELon 01-06 Anion gap [Moles/Vol] 11 mmol/L 7 - 17 mmol/L [facility] Calcium [Mass/Vol] 8.6 mg/dL 8.6 - 10. 5 mg/dL [facility] Chloride [Moles/Vol] 103 mmol/L 98 - 10 8 mmol/L [facility] CO2 [Moles/Vol] 22 mmol/L 21 - 31 mmol/L [facility] Creatinine [Mass/Vol] 0.59 mg/dL Low 0.70 - 1.30 mg/dL [facility] eGFR, CKD-EPI, Male - PINF [facility] Comment on above: Reported eGFR is bas ed on the CKD-EPI 2020 equation using creatinine, age, and sex. Glucose [Mass/Vol] 79 mg/dL 70 - 179 mg/dL [facility] Osmolality Calc [Osmolality] 276 Low [facility] Potassium [Moles/Vol] 3.8 mmol/L 3.5 - 5.0 mmol/L [facility] Sodium [Moles/Vol] 132 mmol/L Low 135 - 145 mmol/L [facility] Urea nitrogen [Mass/Vol] 13 mg/dL 7 - 25 mg/dL [facility] Urea nitrogen/Creatinine [Mass ratio] 22 mg/mg [facility] Anion gap [Moles/Vol] 11 mmol/L Normal 7-17 [facility] Comment on above: Performed By: #### JOEL CAGLE C7C #### [facility] (DEFAULT) [address] [place] [address] Calcium [Mass/Vol] 8.6 mg/dL Normal 8.6-10.5 [facility] Comment on above: Performed By: #### JOEL CAGLE C7C #### [facility] (DEFAULT) [address] [place] [address] Chloride [Moles/Vol] 103 mmol/L Normal 98-108 [facility] Comment on above: Performed By: #### JOEL CAGLE C7C #### [facility] (DEFAULT) [address] [place] [address] CO2 [Moles/Vol] 22 mmol/L Normal 21-31 [facility] Comment on above: Performed By: #### JOEL CAGLE C7C #### [facility] (DEFAULT) [address] [place] [address] Creatinine [Mass/Vol] 0.59 mg/dL Low 0.70-1.30 [facility] Comment on above: Performed By: #### JOEL CAGLE C7C #### [facility] (DEFAULT) [address] [place] [address] eGFR, CKD-EPI, Male > Normal >=60 [facility] Comment on above: Result Comment: Repo rted eGFR is based on the CKD-EPI 2020 equation using creatinine, age, and sex. Performed By: #### JOEL CAGLE C7C #### [facility] (DEFAULT) [address] [place] [address] Glucose [Mass/Vol] 79 mg/dL Normal Nonfastin g : 70-179 mg/dL; Fastin-99 [facility] Comment on above: Performed By: #### JOEL CAGLE C7C #### [facility] (DEFAULT) [address] [place] [address] Osmolality [Osmolality] 276 mosm/kg Low 278-305 [facility] Comment on above: Performed By: #### JOEL CAGLE C7C #### [facility] (DEFAULT) [address] [place] [address] Potassium [Moles/Vol] 3.8 mmol/L Normal 3.5-5.0 [facility] Comment on above: Performed By: #### JOEL CAGLE C7C #### [facility] (DEFAULT) [address] [place] [address] Sodium [Moles/Vol] 132 mmol/L Low 135-145 [facility] Comment on above: Performed By: #### JOEL CAGLE C7C #### [facility] (DEFAULT) [address] [place] [address] Urea nitrogen [Mass/Vol] 13 mg/dL Normal 7-25 [facility] Comment on above: Performed By: #### JOEL CAGLE, AlinaC #### [facility] (DEFAULT) [address] [place] [address] Urea nitrogen/Creatinine [Mass ratio] 22 mg/mg Normal [facility] Comment on above: Performed By: #### M JOEL MARTINEZ, Jaye #### [facility] (DEFAULT) [address] [place] [address] CBC,PLATELETSon 01-20-2025 Erythrocyte distribution width (RBC) [Ratio] 21.4 % High 10.9 - 14.3 % [facility] Hematocrit (Bld) [Volume fraction] 30.5 % Low 39.6 - 48.8 % [facility] Hemoglobin (Bld) [Mass/Vol] 8.7 g/dL Low 13.4 - 16.8 g/dL [facility] Interpretation and review of laboratory results Abnormal [facility] MCH (RBC) [Entitic mass] 21.3 pg Low 26. 1 - 33.3 pg [facility] MCHC (RBC) [Mass/Vol] 28.5 g/dL Low 31.9 - 36.5 g/dL [facility] MCV (RBC) [Entitic vol] 74.6 fL Low 79.0 - 94.5 fL [facility] Platelet mean volume (Bld) [Entitic vol] 9.5 fL 8.7 - 12.3 fL [facility] Platelets (Bld) [#/Vol] 373 10*3/uL High 146 - 337 K/uL [facility] RBC (Bld) [#/Vol] 4.09 10*6/uL Low [facility] WBC (Bld) [#/Vol] 9.49 10*3/uL 3.73 - 10.10 K/uL [facility] Hematocrit (Bld) [Volume fraction] 30.5 % Low 39.6-48.8 [facility] Comment on above: Performed By: #### H EMOGC #### [facility] (DEFAULT) [address] [address] Hemoglobin (Bld) [Mass/Vol] 8.7 g/dL Low 13.4-16.8 [facility] Comment on above: Performed By: #### H EMOGC #### [facility] (DEFAULT) [address] [place] [address] MCV (RBC) [Entitic vol] 74.6 fL Low 79.0-94.5 [facility] Comment on above: Performed By: #### H EMOGC #### [facility] (DEFAULT) [address] [address] Mean Cell Hgb 21.3 pg Low 26.1-33.3 [facility] Comment on above: Performed By: #### H EMOGC #### [facility] (DEFAULT) [address] [address] Mean Cell Hgb Conc 28.5 g/dL Low 31.9-36.5 [facility] Comment on above: Performed By: #### H EMOGC #### [facility] (DEFAULT) [address] [place] [address] Platelet mean volume (Bld) [Entitic vol] 9.5 fL Normal 8.7-12.3 [facility] Comment on above: Performed By: #### H EMOGC #### [facility] (DEFAULT) [address] [place] [address] Platelets (Bld) [#/Vol] 373 10*3/uL High 146-337 [facility] Comment on above: Performed By: #### H EMOGC #### [facility] (DEFAULT) [address] [place] [address] RBC (Bld) [#/Vol] 4.09 10*6/uL Low 4.38-5.83 [facility] Comment on above: Performed By: #### H EMOGC #### [facility] (DEFAULT) [address] [place] [address] RBC Distribution 21.4 % High 10.9-14.3 [facility] Comment on above: Performed By: #### H EMOGC #### [facility] (DEFAULT) [address] [place] [address] WBC (Bld) [#/Vol] 9.49 10*3/uL Normal 3.73-10.10 [facility] Comment on above: Performed By: #### H EMO #### [facility] (DEFAULT) [address] [place] [address] CONTINUOUS CARDIAC MONITORIN G STRIPOrdered By: Unassigned Pacs on 01-20-2025 [facility] Work Phone: MAGNESIUMon 01-20-2025 Magnesium [Mass/Vol] 1.5 mg/dL Low 1.6 - 2 .6 mg/dL [facility] Magnesium [Mass/Vol] 1.5 mg/dL Low 1.6-2.6 [facility] Comment on above: Performed By: #### M JOEL MARTINEZ C7C #### [facility] (DEFAULT) [address] [place] [address] No Panel Informationon 01-20 Interpretation and review of laboratory results Abnormal [facility] PHOSPHATE, INORGANICon 01-20 Interpretation and review of laboratory results Normal [facility] Phosphate [Mass/Vol] 3.9 mg/dL 2.2 - 4 .6 mg/dL [facility] Phosphorous 3.9 mg/dL Normal 2.2-4.6 [facility] Comment on above: Performed By: #### M JOEL MARTINEZ C7C #### [facility] (DEFAULT) [address] [place] [address] SURG PATH REQUESTon 01-21-20 25 Addendum Normal [facility] Comment on above: Result Comment: This addendum is issued to report on the H. pylrori stain was performed on specimen A No Helicobacter pylori organisms identified on HP immunohistochemical stain. Addendum electronically signed by Devante Whipple MD on 02/12/2025 at 1448 EDT Performed By: #### S URGP #### [facility] (DEFAULT) [address] [place] [address] Case Report [facility] Comment on above: Result Comment: Surg ical Pathology Report Case: [id number] Authorizing Provider: Lazaro Perry MD Collected: 01/20/2025 04:10 PM Ordering Location: [facility]T PERIOP Received: 01/20/2025 05:09 PM Pathologist: Devante Whipple MD Specimens: A) - SURG PATH, Antral biopsy B) - SURG PATH, Polyp in ileoanal pouch C) - SURG PATH, Rectal cuff polyps Performed By: #### S URGP #### [facility] (DEFAULT) [address] [place] [address] Clinical History Preop Diagnosis: Oth er ulcerative colitis with complication. Medical History: Heart block. [facility] Comment on above: Performed By: #### S URGP #### [facility] (DEFAULT) [address] [place] [address] Gross Description Normal [facility] Comment on above: Result Comment: The [...] dimension. TE 1 Lab Use Only: JobID [id number] Grosser for this case was: Amelie Escalante Performed By: #### S URGP #### [facility] (DEFAULT) [address] [address] Microscopic Description A microscopic ex amination was performed. [facility] Comment on above: Performed By: #### S URGP #### [facility] (DEFAULT) [address] [address] Pathologic Diagnosis [facility] Comment on above: Result Comment: A. S [...] EDT Performed By: #### S URGP #### [facility] (DEFAULT) [address] [address] Professional Interpretation Performed at: [facility] Comment on above: Result Comment: [facility] For Immediate Release to Patient's [facility]? Yes [address] [place] [address] Performed By: #### S URGP #### [facility] (DEFAULT) [address] [address] Oncology Visit Reporton 12-07 Oncology Visit Report Normal [facility] PET/CT Tumor Base -Thigh Ini ton 12-16-2024 PET/CT Tumor Base -Thigh Init Normal [facility] SURG PATH REQUESTon 12-13-19 Case Report [facility] Comment on above: Result Comment: Surg ical Pathology Report Case: [id number] Authorizing Provider: KATHERINE Henry Collected: 12/12/2024 12:22 PM Ordering Location[facility] Received: 12/12/2024 12:23 PM [place] Pathologist: Regis Keith MD, PhD Specimen: SURG PATH, Outside Block; Colon Cancer Mutation Panel (COLMOL) (NGS, FFPE); IDH1, IDH2 Mutations (Blood, BM, FFPE); Liver Mass, CT-Guided Core Biopsy Performed By: #### S URGP #### [facility] (DEFAULT) [address] [address] Clinical History Request received fro anabel Ortiz [facility] for Colon Cancer Mutation Panel and IDH1, IDH2 Mutations (Blood, BM, FFPE) testing on the paraffin block received. Pre-Op Diagnosis: Liver mass. [facility] Comment on above: Performed By: #### S URGP #### [facility] (DEFAULT) [address] [place] [address] Gross Description [facility] Comment on above: Result Comment: The following material(s) are received from [facility], [address] [place] [address], with an identifying surgical pathology report: One (1) paraffin block marked #1, labeled [id number]. The paraffin block that was received is submitted to the [facility] histology/I[facility] laboratory for recutting and additional staining: Colon Mutation Panel, IDH1, IDH2 Mutations testing. Material with be returned upon completion of review. Grosser for this case was: Yolande Magallon Performed By: #### S URGP #### [facility] (DEFAULT) [address] [address] Microscopic Description Normal [facility] Comment on above: Result Comment: Tiss ue was assessed by a molecular pathologist to select areas for analysis and to correlate immunostaining with histology. No morphologic assessment was requested. Performed By: #### S URGP #### [facility] (DEFAULT) [address] [place] [address] Pathologic Diagnosis [facility] Comment on above: Result Comment: Outs guille block: [id number] (11/25/2024) 1. Liver Mass, CT-Guided Core Biopsy: Colorectal cancer NGS panel: Negative IDH1/IDH2 mutation panel: Negative at 1521 EDT Performed By: #### S URGP #### [facility] (DEFAULT) [address] [place] [address] Professional Interpretation Performed at: Normal [facility] Comment on above: Result Comment: [facility] For Immediate Release to Patient's MyChart? Yes [address] [facility] [address] [place], [place] [address] Performed By: #### S URGP #### [facility] (DEFAULT) [address] [place] [address] CBC W/Diff, Automatedon Anisocytosis Ql (Bld) 1+ Normal [facility] Comment on above: Performed By: #### L 503.6550, L500.4050, L503.6030, L503.0106, L100.0100 ####[facility] [address] [place], [address] HYPOCHROMASIA 2+ Normal [facility] Comment on above: Performed By: #### L 503.6550, L500.4050, L503.6030, L503.0106, L100.0100 ####[facility] [address] [place], [address] Comprehensive Metabolic Prof ilon 12-10-2024 Albumin [Mass/Vol] 3.1 g/dL Low 3.5-5.0 [facility] Comment on above: Performed By: #### L 503.6550, L500.4050, L503.6030, L503.0106, L100.0100 ####[facility] [address] [place], [address] Albumin/Globulin [Mass ratio] 0.6 {ratio} Low 0.9-2.4 [facility] Comment on above: Performed By: #### L 503.6550, L500.4050, L503.6030, L503.0106, L100.0100 ####[facility] [address] [place], [address] ALK PHOS 627 U/L High 40-129 [facility] Comment on above: Performed By: #### L 503.6550, L500.4050, L503.6030, L503.0106, L100.0100 ####[facility] [address] [place], [address] ALT [Catalytic activity/Vol] 36 U/L Normal <=46 [facility] Comment on above: Performed By: #### L 503.6550, L500.4050, L503.6030, L503.0106, L100.0100 ####[facility] [address] [place], [address] AST [Catalytic activity/Vol] 55 U/L High <=37 [facility] Comment on above: Performed By: #### L 503.6550, L500.4050, L503.6030, L503.0106, L100.0100 ####[facility] [address] [place], [address] Bilirubin [Mass/Vol] 1.15 mg/dL Normal 0.00-1.30 [facility] Comment on above: Performed By: #### L 503.6550, L500.4050, L503.6030, L503.0106, L100.0100 ####[facility] [address] [place], [address] BUN/CRE 26.5 RATIO High 10-20 [facility] Comment on above: Performed By: #### L 503.6550, L500.4050, L503.6030, L503.0106, L100.0100 ####[facility] [address] [place], [address] Calcium [Mass/Vol] 8.1 mg/dL Normal 7.6-11.0 [facility] Comment on above: Performed By: #### L 503.6550, L500.4050, L503.6030, L503.0106, L100.0100 ####[facility] [address] [place], [address] Chloride [Moles/Vol] 103 mmol/L Normal 98-108 [facility] Comment on above: Performed By: #### L 503.6550, L500.4050, L503.6030, L503.0106, L100.0100 ####[facility] [address] [place], [address] CO2 [Moles/Vol] 20.1 mmol/L Low 21.0-32.0 [facility] Comment on above: Performed By: #### L 503.6550, L500.4050, L503.6030, L503.0106, L100.0100 ####[facility] [address] [place], [address] Creatinine [Mass/Vol] 0.82 mg/dL Normal 0.70-1.20 [facility] Comment on above: Performed By: #### L 503.6550, L500.4050, L503.6030, L503.0106, L100.0100 ####[facility] [address] [place], [address] GAP 8 Normal 5-15 [facility] Comment on above: Performed By: #### L 503.6550, L500.4050, L503.6030, L503.0106, L100.0100 ####[facility] [address] [place], [address] GFR/1.73 sq M.predicted among non-blacks MDRD (S/P/Bld) [Vol rate/Area] 105 mL/min/{1.73_m2} Normal >60 [facility] Comment on above: Result Comment: mL/m in/1.73m2 CKD-EPI Creatinine Equation (2020) Performed By: #### L 503.6550, L500.4050, L503.6030, L503.0106, L100.0100 ####[facility] [address] [place], [address] Globulin (S) [Mass/Vol] 4.9 g/dL High 2.2-4.2 [facility] Comment on above: Performed By: #### L 503.6550, L500.4050, L503.6030, L503.0106, L100.0100 ####[facility] [address] [place], [address] Glucose [Mass/Vol] 102 mg/dL High 70-99 [facility] Comment on above: Performed By: #### L 503.6550, L500.4050, L503.6030, L503.0106, L100.0100 ####[facility] [facility] [address] [place], [address] Potassium [Moles/Vol] 4.2 mmol/L Normal 3.3-5.1 [facility] Comment on above: Performed By: #### L 503.6550, L500.4050, L503.6030, L503.0106, L100.0100 ####[facility] [address] [place], [address] Sodium [Moles/Vol] 131 mmol/L Low 133-145 [facility] Comment on above: Performed By: #### L 503.6550, L500.4050, L503.6030, L503.0106, L100.0100 ####[facility] [address] [place], [address] T PROT 7.9 g/dL Normal 5.9-8.4 [facility] Comment on above: Performed By: #### L 503.6550, L500.4050, L503.6030, L503.0106, L100.0100 ####[facility] [address] [place], [address] Urea nitrogen [Mass/Vol] 22 mg/dL High 4-19 [facility] Comment on above: Performed By: #### L 503.6550, L500.4050, L503.6030, L503.0106, L100.0100 ####[facility] [address] [place], [address] Ferritinon 12-10-2024 Ferritin [Mass/Vol] 14 ng/mL Low 37-417 [facility] Comment on above: Performed By: #### L 503.6550, L500.4050, L503.6030, L503.0106, L100.0100 ####[facility] [address] [facility] [address] Hypochromatic red blood cell detectionOrdered By: Trish Ortiz on 12-10-2024 Hypochromia Ql (Bld) 2+ [facility] Iron+Iron Binding Capacityon 12-10-2024 Iron [Mass/Vol] 14 ug/dL Low 65-175 [facility] Comment on above: Performed By: #### L 503.6550, L500.4050, L503.6030, L503.0106, L100.0100 ####[facility] [address] [facility] [address] IRON SATURATION 4.0 Low 15.0-55.0 [facility] Comment on above: Performed By: #### L 503.6550, L500.4050, L503.6030, L503.0106, L100.0100 ####[facility] [address] [place] [id number] TIBC 352 ug/dL Normal 250-450 [facility] Comment on above: Performed By: #### L 503.6550, L500.4050, L503.6030, L503.0106, L100.0100 ####[facility] [address] [place] [id number] UIBC 338 ug/dL Normal 228-428 [facility] Comment on above: Performed By: #### L 503.6550, L500.4050, L503.6030, L503.0106, L100.0100 ####[facility] [address] [place], [address] L503.0106on 12-10-2024 Cobalamin (Vitamin B12) [Mass/Vol] 751 pg/mL Normal 180-914 [facility] Comment on above: Performed By: #### L 503.6550, L500.4050, L503.6030, L503.0106, L100.0100 ####[facility] [address] [place], [address] Laboratory - Hematology and Cell countsOrdered By: Trish Ortiz on 12-10-2024 Anisocytosis Ql (Bld) 1+ [facility] Oncology Visit Reporton Oncology Visit Report Normal [facility] Vitamin B12 ser/plasOrdered By: Trish Ortiz on 12-10-2024 Cobalamin (Vitamin B12) [Mass/Vol] 751 pg/mL 180-914 [facility] Gastroenterology Visit Repor ton 12-05-2024 Gastroenterology Visit Report Normal [facility] AFP, Tumor Markeron 11-27-19 25 AFP TUMOR CATHRYN < 1.8 Normal 0.0-8.4 [facility] Comment on above: Result Comment: [employer] Electrochemiluminescence Immunoassay(ECLIA)Values obtained with different assay methods or kits cannotbe used interchangeably. Results cannot be interpreted asabsolute evidence of the presence or absence of malignantdisease.This test is not interpretable in females. Performed By: #### L 800.1280, L803.2200, L3100.2300, L3300.1200, L3300.0700, L3100.5020, L3100.5440, L3100.3425, L504.2610 ####[facility] [address] [place], [place], [id number] ANCAon 11-27-2024 Atypical pANCA >1:640 Abnormal Neg:<1:20 [facility] Comment on above: Result Comment: The atypical pANCA pattern has been observed in asignificant percentage of patients with ulcerative colitis,primary sclerosing cholangitis and autoimmune hepatitis. Performed By: #### L 800.1280, L803.2200, L3100.2300, L3300.1200, L3300.0700, L3100.5020, L3100.5440, L3100.3425, L504.2610 ####[facility] [address] [place], [place], [id number] Cytoplasmic Ab <1:20 Normal Neg:<1:20 [facility] Comment on above: Performed By: #### L 800.1280, L803.2200, L3100.2300, L3300.1200, L3300.0700, L3100.5020, L3100.5440, L3100.3425, L504.2610 ####[facility] [address] [place], [address] Perinuclear Ab. <1:20 Normal Neg:<1:20 [facility] Comment on above: Result Comment: The presence of positive fluorescence exhibiting P-ANCA orC-ANCA patterns alone is not specific for the diagnosis ofWegener's Granulomatosis (WG) or microscopic polyangiitis.Decisions about treatment should not be based solely onANCA IFA results. The International ANCA Group Consensusrecommends follow up testing of positive sera with both VA-3 and MPO-ANCA enzyme immunoassays. As many as 5% serumsamples are positive only by EIA. Ref. AM J Clin Hyrxca2263;111:507-513. Performed By: #### L 800.1280, L803.2200, L3100.2300, L3300.1200, L3300.0700, L3100.5020, L3100.5440, L3100.3425, L504.2610 ####[facility] [address] [place], [address] Anti-Smooth Muscle ABSon ANTISMOOTH MUSC 17 Units Normal 0-19 [facility] Comment on above: Result Comment: Nega tive 0 - 19 Weak positive 20 - 30 Moderate to strong positive >30 Actin Antibodies are found in 52-85% of patients with autoimmune hepatitis or chronic active hepatitis and in 22% of patients with primary biliary cirrhosis.Performed at: [address] [id number] Director: Sal Linton PhD, Phone: [phone] Performed By: #### L 800.1280, L803.2200, L3100.2300, L3300.1200, L3300.0700, L3100.5020, L3100.5440, L3100.3425, L504.2610 ####[facility] [address] [place], [address] Carbohydrate AG 19-9on 11-27 CA 19-9 64 U/mL High 0-35 [facility] Comment on above: Result Comment: [employer] Electrochemiluminescence Immunoassay(ECLIA)Values obtained with different assay methods or kits cannotbe used interchangeably. Results cannot be interpreted asabsolute evidence of the presence or absence of malignantdisease. Performed By: #### L 800.1280, L803.2200, L3100.2300, L3300.1200, L3300.0700, L3100.5020, L3100.5440, L3100.3425, L504.2610 ####[facility] [address] [place], [place], [address] Carcinoembryonic Antigenon 0 11-27-2024 CEA 3.4 ng/mL Normal 0.0-4.7 [facility] Comment on above: Result Comment: Nons mokers <3.9 Smokers <5.6[employer] Electrochemiluminescence Immunoassay(ECLIA)Values obtained with different assay methods or kitscannot be used interchangeably. Results cannot beinterpreted as absolute evidence of the presence orabsence of malignant disease. Performed By: #### L 800.1280, L803.2200, L3100.2300, L3300.1200, L3300.0700, L3100.5020, L3100.5440, L3100.3425, L504.2610 ####[facility] [address] [place], [address] AMPARO + Protein Elect, Serumon 11-27-2024 Albumin [Mass/Vol] 2.3 g/dL Low 2.9-4.4 [facility] Comment on above: Performed By: #### L 800.1280, L803.2200, L3100.2300, L3300.1200, L3300.0700, L3100.5020, L3100.5440, L3100.3425, L504.2610 ####[facility] [address] [place], [address] Albumin/Globulin [Mass ratio] 0.5 {ratio} Low 0.7-1.7 [facility] Comment on above: Performed By: #### L 800.1280, L803.2200, L3100.2300, L3300.1200, L3300.0700, L3100.5020, L3100.5440, L3100.3425, L504.2610 ####[facility] [address] [place], [address] DKUXW-4-ZWYU 0.4 g/dL Normal 0.0-0.4 [facility] Comment on above: Performed By: #### L 800.1280, L803.2200, L3100.2300, L3300.1200, L3300.0700, L3100.5020, L3100.5440, L3100.3425, L504.2610 ####[facility] [address] [place], [address] INOOQ-2-RIHM 0.7 g/dL Normal 0.4-1.0 [facility] Comment on above: Performed By: #### L 800.1280, L803.2200, L3100.2300, L3300.1200, L3300.0700, L3100.5020, L3100.5440, L3100.3425, L504.2610 ####[facility] [address] [place], [place], [phone]) BETA GLOBULIN 1.3 g/dL Normal 0.7-1.3 [facility] Comment on above: Performed By: #### L 800.1280, L803.2200, L3100.2300, L3300.1200, L3300.0700, L3100.5020, L3100.5440, L3100.3425, L504.2610 ####[facility] [address] [place], [place], [phone] GAMMA GLOBULIN 3.2 g/dL High 0.4-1.8 [facility] Comment on above: Performed By: #### L 800.1280, L803.2200, L3100.2300, L3300.1200, L3300.0700, L3100.5020, L3100.5440, L3100.3425, L504.2610 ####[facility] [address] [place], [place], [phone] Globulin (S) [Mass/Vol] 5.6 g/dL Abnormal 2.2-3.9 [facility] Comment on above: Performed By: #### L 800.1280, L803.2200, L3100.2300, L3300.1200, L3300.0700, L3100.5020, L3100.5440, L3100.3425, L504.2610 ####[facility] [address] [place], [place], [phone] AMPARO RESULT,S Comment Normal . [facility] Comment on above: Result Comment: No m onoclonality detected. Performed By: #### L 800.1280, L803.2200, L3100.2300, L3300.1200, L3300.0700, L3100.5020, L3100.5440, L3100.3425, L504.2610 ####[facility] [address] [place], [address] IMMUNOGLOB A QN 607 mg/dL High 90-386 [facility] Comment on above: Performed By: #### L 800.1280, L803.2200, L3100.2300, L3300.1200, L3300.0700, L3100.5020, L3100.5440, L3100.3425, L504.2610 ####[facility] [address] [place], [address] IMMUNOGLOB G QN 3414 mg/dL High 603-1613 [facility] Comment on above: Performed By: #### L 800.1280, L803.2200, L3100.2300, L3300.1200, L3300.0700, L3100.5020, L3100.5440, L3100.3425, L504.2610 ####[facility] [address] [place], [address] IMMUNOGLOB M QN 243 mg/dL High 20-172 [facility] Comment on above: Performed By: #### L 800.1280, L803.2200, L3100.2300, L3300.1200, L3300.0700, L3100.5020, L3100.5440, L3100.3425, L504.2610 ####[facility] [address] [place], [address] M-Fidencio Not Observed Normal Not Observed [facility] Comment on above: Performed By: #### L 800.1280, L803.2200, L3100.2300, L3300.1200, L3300.0700, L3100.5020, L3100.5440, L3100.3425, L504.2610 ####[facility] [address] [place], [address] NOTE: Comment Normal . [facility] Comment on above: Result Comment: Prot ein electrophoresis scan will follow via computer,mail, or acetylene burner delivery. Performed By: #### L 800.1280, L803.2200, L3100.2300, L3300.1200, L3300.0700, L3100.5020, L3100.5440, L3100.3425, L504.2610 ####[facility] [address] [place], [address] Protein [Mass/Vol] 7.9 g/dL Normal 6.0-8.5 [facility] Comment on above: Performed By: #### L 800.1280, L803.2200, L3100.2300, L3300.1200, L3300.0700, L3100.5020, L3100.5440, L3100.3425, L504.2610 ####[facility] [address] [place], [address] CONNIE Comprehensive Panelon ANTI-DNA (DS)AB 1 IU/mL Normal 0-9 [facility] Comment on above: Result Comment: Nega tive <5 Equivocal 5 - 9 Positive >9 Performed By: #### L 800.1280, L803.2200, L3100.2300, L3300.1200, L3300.0700, L3100.5020, L3100.5440, L3100.3425, L504.2610 ####[facility] [address] [place], [address] ANTISCLERODERM 0.3 AI Normal 0.0-0.9 [facility] Comment on above: Performed By: #### L 800.1280, L803.2200, L3100.2300, L3300.1200, L3300.0700, L3100.5020, L3100.5440, L3100.3425, L504.2610 ####[facility] [address] [place], [place], [id number] Absolute lymphocyte countOrd ered By: John Love on 11-26-2024 Lymphocytes Auto (Unsp spec) [#/Vol] 1.21 10*3/uL 0.83-4.51 [facility] Absolute neutrophil countOrd ered By: John Love on 11-26-2024 Neutrophils (Bld) [#/Vol] 7.1 10*3/uL 2.0-7.7 [facility] Albumin to globulin ratioOrd ered By: John Love on 11-26-2024 Albumin/Globulin [Mass ratio] 0.4 {ratio} Low 0.9-2.4 [facility] Anti-Mitochondrial ABon 11-08 ANTIMITOCHON AB <20.0 Normal 0.0-20.0 [facility] Comment on above: Result Comment: Nega tive 0.0 - 20.0 Equivocal 20.1 - 24.9 Positive >24.9Mitochondrial (M2) Antibodies are found in 90-96% ofpatients with primary biliary cirrhosis.Performed at: [address] [id number] Director: Sal Linton PhD, Phone: [phone] Performed By: #### L 800.1280, L803.2200, L3100.2300, L3300.1200, L3300.0700, L3100.5020, L3100.5440, L3100.3425, L504.2610 ####[facility] [address] [place], [address] Automated lymphocyte count a s percentage of total leukocytesOrdered By: John Love on 11-26-2024 Lymphocytes/100 WBC Auto (Unsp spec) 13.1 % Low 19-41 [facility] Basophil percentageOrdered B y: John Love on 11-26-2024 Basophils/100 WBC (Bld) 0.5 % 0-1 [facility] Bilirubin, totalOrdered By: John Love on 11-26-2024 Bilirubin [Mass/Vol] 1.20 mg/dL High 0.20-1.00 [facility] Comment on above: For patients on eltr ombopag therapy, use of Dimension [place] TBIL is not recommended. Blood urea nitrogen (BUN)/cr eatinine ratioOrdered By: John Love on 11-26-2024 Urea nitrogen/Creatinine [Mass ratio] 27.1 mg/mg High 10-20 [facility] CBC W/Diff, Automatedon 11-08 Anisocytosis Ql (Bld) 2+ Normal [facility] Comment on above: Performed By: #### L 100.0100, L500.4050 ####[facility] [address] [place], [address] HYPOCHROMASIA 2+ Normal [facility] Comment on above: Performed By: #### L 100.0100, L500.4050 ####[facility] [address] [place], [address] Carbon dioxide measurementOr dered By: John Love on 11-26-2024 CO2 [Moles/Vol] 26.0 mmol/L 21.0-32.0 [facility] Chloride measurementOrdered By: John Love on 11-26-2024 Chloride [Moles/Vol] 110 mmol/L High 98-107 [facility] Comprehensive Metabolic Prof ilon 11-26-2024 Albumin [Mass/Vol] 2.0 g/dL Low 3.2-5.0 [facility] Comment on above: Performed By: #### L 100.0100, L500.4050 ####[facility] [address] [place], [address] Albumin/Globulin [Mass ratio] 0.4 {ratio} Low 0.9-2.4 [facility] Comment on above: Performed By: #### L 100.0100, L500.4050 ####[facility] [address] [place], [address] ALK P 549 U/L High 45-117 [facility] Comment on above: Performed By: #### L 100.0100, L500.4050 ####[facility] [address] [place], [address] ALT [Catalytic activity/Vol] 26 U/L Normal 16-61 [facility] Comment on above: Performed By: #### L 100.0100, L500.4050 ####[facility] [address] [place], [address] AST [Catalytic activity/Vol] 38 U/L High 15-37 [facility] Comment on above: Performed By: #### L 100.0100, L500.4050 ####[facility] [address] [place], [address] Bilirubin [Mass/Vol] 1.20 mg/dL High 0.20-1.00 [facility] Comment on above: Result Comment: For patients on eltrombopag therapy, use of Dimension [place] TBIL is not recommended. Performed By: #### L 100.0100, L500.4050 ####[facility] [address] [place], [address] BUN/CRE 27.1 RATIO High 10-20 [facility] Comment on above: Performed By: #### L 100.0100, L500.4050 ####[facility] [address] [place], [address] CA,Total 8.3 mg/dL Low 8.5-10.1 [facility] Comment on above: Performed By: #### L 100.0100, L500.4050 ####[facility] [address] [place], [address] Chloride [Moles/Vol] 110 mmol/L High 98-107 [facility] Comment on above: Performed By: #### L 100.0100, L500.4050 ####[facility] [address] [place], [address] CO2 [Moles/Vol] 26.0 mmol/L Normal 21.0-32.0 [facility] Comment on above: Performed By: #### L 100.0100, L500.4050 ####[facility] [address] [place], [address] Creatinine [Mass/Vol] 0.88 mg/dL Normal 0.70-1.30 [facility] Comment on above: Result Comment: The validity of the calculated GFR GFRAA in patients over70 years has not been determined. Clinical correlation isessential. Performed By: #### L 100.0100, L500.4050 ####[facility] [address] [place], [address] ECRCL 158.78 ml/min Normal [facility] Comment on above: Performed By: #### L 100.0100, L500.4050 ####[facility] [address] [place], [address] EST GFR - AA 115 mL/min Normal >60 [facility] Comment on above: Result Comment: Afri can Uzbek GFR Calc Performed By: #### L 100.0100, L500.4050 ####[facility] [address] [place], [address] GAP 3 Low 5-15 [facility] Comment on above: Performed By: #### L 100.0100, L500.4050 ####[facility] [address] [place], [address] GFR/1.73 sq M.predicted among non-blacks MDRD (S/P/Bld) [Vol rate/Area] 95 mL/min/{1.73_m2} Normal >60 [facility] Comment on above: Result Comment: Non- GFR Calc Performed By: #### L 100.0100, L500.4050 ####[facility] [address] [place], [address] Globulin (S) [Mass/Vol] 5.6 g/dL High 2.2-4.2 [facility] Comment on above: Performed By: #### L 100.0100, L500.4050 ####[facility] [address] [place], [address] Glucose [Mass/Vol] 83 mg/dL Normal 74-106 [facility] Comment on above: Performed By: #### L 100.0100, L500.4050 ####[facility] [address] [place], [address] Potassium [Moles/Vol] 3.7 mmol/L Normal 3.5-5.1 [facility] Comment on above: Performed By: #### L 100.0100, L500.4050 ####[facility] [address] [place], [address] Sodium [Moles/Vol] 139 mmol/L Normal 136-145 [facility] Comment on above: Performed By: #### L 100.0100, L500.4050 ####[facility] [address] [place], [address] T PROT 7.6 g/dL Normal 6.4-8.2 [facility] Comment on above: Performed By: #### L 100.0100, L500.4050 ####[facility] [address] [place], [address] Urea nitrogen [Mass/Vol] 24 mg/dL High 7-18 [facility] Comment on above: Performed By: #### L 100.0100, L500.4050 ####[facility] [address] [place], [address] Discharge Instructionon 11-08 Discharge Instruction Normal [facility] Eosinophil percentageOrdered By: John Love on 11-26-2024 Eosinophils/100 WBC (Bld) 1.4 % 0-5 [place] [facility] Erythrocyte distribution wid th ratioOrdered By: John Love on 11-26-2024 Erythrocyte distribution width (RBC) [Ratio] 23.5 % High 11.6-14.6 [facility] Erythrocyte distribution wid th standard deviationOrdered By: John Love on 11-26-2024 Erythrocyte distribution width (RBC) [Ratio] 61.0 fl High 35.1-43.9 [facility] Glomerular filtration rate ( GFR) estimationOrdered By: John Love on 11-26-2024 GFR/1.73 sq M.predicted among non-blacks MDRD (S/P/Bld) [Vol rate/Area] 95 mL/min/{1.73_m2} >60 [facility] Comment on above: Non- GFR Calc Glucose measurementOrdered B y: John Love on 11-26-2024 Glucose [Mass/Vol] 83 mg/dL 74-106 [facility] Hematocrit Auto (Bld) [Volum e fraction]Ordered By: John Love on 11-26-2024 Hematocrit (Bld) [Volume fraction] 27.6 % Low 40-54 [facility] Hemoglobin measurementOrdere d By: John Love on 11-26-2024 Hemoglobin (Bld) [Mass/Vol] 7.8 g/dL Low 13.0-16.5 [facility] Hypochromatic red blood cell detectionOrdered By: John Love on 11-26-2024 Hypochromia Ql (Bld) 2+ [facility] Immature granulocytes/100 WB C Auto (Bld)Ordered By: John Love on 11-26-2024 Immature granulocytes/100 WBC (Bld) 0.600 % 0.0-0.9 [facility] Comment on above: IG% - Immature Granu locytes (promyelocytes, myelocytes and metamyelocytes) > 1% indicates that a LEFT SHIFT is Present. Laboratory - Chemistry and C hemistry - challengeOrdered By: John Love on 11-26-2024 AST [Catalytic activity/Vol] 38 U/L High 15-37 [facility] Laboratory - Hematology and Cell countsOrdered By: John Love on 11-26-2024 Anisocytosis Ql (Bld) 2+ [facility] MCV (mean corpuscular volume ) determinationOrdered By: John Love on 11-26-2024 MCV (RBC) [Entitic vol] 72.8 fL Low 80-94 [facility] Magnesiumon 11-26-2024 Magnesium [Mass/Vol] 1.6 mg/dL Normal 1.6-2.6 [facility] Comment on above: Performed By: #### L 501.5200 ####[facility] [address] [place], [address] Magnesium measurementOrdered By: Salena Matthews on 11-26-2024 Magnesium [Mass/Vol] 1.6 mg/dL 1.6-2.6 [facility] Mean corpuscular hemoglobin (MCH) determinationOrdered By: John Love on 11-26-2024 MCH (RBC) [Entitic mass] 20.6 pg Low 27.0-32.0 [facility] Mean corpuscular hemoglobin concentration (MCHC) determinationOrdered By: John Love on 11-26-2024 MCHC (RBC) [Mass/Vol] 28.3 g/dL Low 32-36 [facility] Mean platelet volume determi nationOrdered By: John Love on 11-26-2024 Platelet mean volume (Bld) [Entitic vol] 9.1 fL 6.2-12.0 [facility] Monocyte percentageOrdered B y: John Love on 11-26-2024 Monocytes/100 WBC (Bld) 8.0 % 0-10 [facility] Neutrophil percentageOrdered By: John Love on 11-26-2024 Neutrophils/100 WBC (Bld) 76.4 % High 47-70 [facility] Nucleated red blood cell per centageOrdered By: John Love on 11-26-2024 Nucleated RBC/100 WBC (Bld) [Ratio] 0 % 0-5 [facility] Platelet countOrdered By: Doreen Love on 11-26-2024 Platelets (Bld) [#/Vol] 345 10*3/uL 150-450 [facility] Potassium measurementOrdered By: John Love on 11-26-2024 Potassium [Moles/Vol] 3.7 mmol/L 3.5-5.1 [facility] RBC Auto (Bld) [#/Vol]Ordere d By: John Love on 11-26-2024 RBC (Bld) [#/Vol] 3.79 10*6/uL Low 4.6-6.2 [facility] Serum anion gap measurementO rdered By: John Love on 11-26-2024 Anion gap [Moles/Vol] 3 mmol/L Low 5-15 [facility] Serum globulin measurementOr dered By: John Love on 11-26-2024 Globulin (S) [Mass/Vol] 5.6 g/dL High 2.2-4.2 [facility] Serum or plasma alanine arroyo otransferase (ALT) measurementOrdered By: John Love on 11-26-2024 ALT [Catalytic activity/Vol] 26 U/L 16-61 [facility] Serum or plasma albumin bernard urement (mass/volume)Ordered By: John Love on 11-26-2024 Albumin [Mass/Vol] 2.0 g/dL Low 3.2-5.0 [facility] Serum or plasma alkaline rubio sphatase measurementOrdered By: John Lvoe on 11-26-2024 ALP [Catalytic activity/Vol] 549 U/L High 45-117 [facility] Serum or plasma calcium bernard urement (mass/volume)Ordered By: John Love on 11-26-2024 Calcium [Mass/Vol] 8.3 mg/dL Low 8.5-10.1 [facility] Serum or plasma creatinine m easurement (mass/volume)Ordered By: John Love on 11-26-2024 Creatinine [Mass/Vol] 0.88 mg/dL 0.70-1.30 [facility] Comment on above: The validity of the calculated GFR & GFRAA in patients over 70 years has not been determined. Clinical correlation is essential. Serum or plasma urea nitroge n measurement (mass/volume)Ordered By: John Love on 11-26-2024 Urea nitrogen [Mass/Vol] 24 mg/dL High - [facility] Sodium levelOrdered By: Edwin Love on 11-26-2024 Sodium [Moles/Vol] 139 mmol/L 136-145 [facility] Total proteinOrdered By: Syed Love on 11-26-2024 Protein [Mass/Vol] 7.6 g/dL 6.4-8.2 [facility] White blood cell (WBC) count Ordered By: John Love on 11-26-2024 WBC (Bld) [#/Vol] 9.2 10*3/uL 4.4-11.0 [facility] Basic Metabolic Profile (BMP )on 11-25-2024 BUN Normal 04-24 [facility] Comment on above: Result Comment: Canc elled via OM: MD Ordered Performed By: #### L 500.2500, L100.0100 ####[facility] [address] [place], [address] BUN/CRE Normal 10-20 [facility] Comment on above: Result Comment: Canc elled via OM: MD Ordered Performed By: #### L 500.2500, L100.0100 ####[facility] [address] [place], [address] CA,Total Normal 8.5-10.1 [facility] Comment on above: Result Comment: Canc elled via OM: MD Ordered Performed By: #### L 500.2500, L100.0100 ####[facility] [address] [place], [address] CL Normal 98-107 [facility] Comment on above: Result Comment: Canc elled via OM: MD Ordered Performed By: #### L 500.2500, L100.0100 ####[facility] [address] [place], [address] CO2 Normal 21.0-32.0 [facility] Comment on above: Result Comment: Canc elled via OM: MD Ordered Performed By: #### L 500.2500, L100.0100 ####[facility] [address] [place], [address] CREAT,SERUM Normal 0.70-1.30 [facility] Comment on above: Result Comment: Canc elled via OM: MD Ordered Performed By: #### L 500.2500, L100.0100 ####[facility] [address] [place], [address] EST GFR Normal >60 [facility] Comment on above: Result Comment: Canc elled via OM: MD Ordered Performed By: #### L 500.2500, L100.0100 ####[facility] [address] [place], [address] EST GFR - AA Normal >60 [facility] Comment on above: Result Comment: Canc elled via OM: MD Ordered Performed By: #### L 500.2500, L100.0100 ####[facility] [address] [place], [address] GAP Normal 5-15 [facility] Comment on above: Result Comment: Canc elled via OM: MD Ordered Performed By: #### L 500.2500, L100.0100 ####[facility] [address] [place], [address] GLU Normal 74-106 [facility] Comment on above: Result Comment: Canc elled via OM: MD Ordered Performed By: #### L 500.2500, L100.0100 ####[facility] [address] [place], [address] Potassium Normal 3.5-5.1 [facility] Comment on above: Result Comment: Canc elled via OM: MD Ordered Performed By: #### L 500.2500, L100.0100 ####[facility] [address] [place], [address] Basic Metabolic Profile (BMP) Normal 136-145 [facility] Comment on above: Result Comment: Giuliana lealed via OM: MD Ordered Performed By: #### L 500.2500, L100.0100 ####[facility] [address] [place], [address] Biopsy/Inj or Needle Placeme nton 11-25-2024 Biopsy/Inj or Needle Placement Normal [facility] Blood polychromasia detectio n by light microscopyOrdered By: John Love on 11-25-2024 Polychromasia LM Ql (Bld) 1+ [facility] CBC W/Diff, Automatedon 11-08 Anisocytosis Ql (Bld) 3+ Normal [facility] Comment on above: Performed By: #### L 500.2500, L100.0100 ####[facility] [address] [place], [address] MACROCYTOSIS 1+ Normal [facility] Comment on above: Performed By: #### L 500.2500, L100.0100 ####[facility] [address] [place], [address] MICROCYTIC 2+ Normal [facility] Comment on above: Performed By: #### L 500.2500, L100.0100 ####[facility] [address] [place], [address] OVALOCYTE 1+ Normal [facility] Comment on above: Performed By: #### L 500.2500, L100.0100 ####[facility] [address] [place], [address] POLYCHROMASIA 1+ Normal [facility] Comment on above: Performed By: #### L 500.2500, L100.0100 ####[facility] [address] [place], [address] TARGET CELLS 1+ Normal [facility] Comment on above: Performed By: #### L 500.2500, L100.0100 ####[facility] [address] [place], [address] Comprehensive Metabolic Prof ilon 11-25-2024 Albumin [Mass/Vol] 2.0 g/dL Low 3.2-5.0 [facility] Comment on above: Performed By: #### L 500.4050 ####[facility] [address] [place], [address] Albumin/Globulin [Mass ratio] 0.4 {ratio} Low 0.9-2.4 [facility] Comment on above: Performed By: #### L 500.4050 ####[facility] [address] [place], [address] ALK P 586 U/L High 45-117 [facility] Comment on above: Performed By: #### L 500.4050 ####[facility] [address] [place], [address] ALT [Catalytic activity/Vol] 23 U/L Normal 16-61 [facility] Comment on above: Performed By: #### L 500.4050 ####[facility] [address] [place], [address] AST [Catalytic activity/Vol] 38 U/L High 15-37 [facility] Comment on above: Performed By: #### L 500.4050 ####[facility] [address] [place], [address] Bilirubin [Mass/Vol] 0.90 mg/dL Normal 0.20-1.00 [facility] Comment on above: Result Comment: For patients on eltrombopag therapy, use of Dimension [place] TBIL is not recommended. Performed By: #### L 500.4050 ####[facility] [address] [place], [address] BUN/CRE 21.3 RATIO High 10-20 [facility] Comment on above: Performed By: #### L 500.4050 ####[facility] [address] [place], [address] CA,Total 8.2 mg/dL Low 8.5-10.1 [facility] Comment on above: Performed By: #### L 500.4050 ####[facility] [address] [place], [address] Chloride [Moles/Vol] 108 mmol/L High 98-107 [facility] Comment on above: Performed By: #### L 500.4050 ####[facility] [address] [place], [address] CO2 [Moles/Vol] 23.0 mmol/L Normal 21.0-32.0 [facility] Comment on above: Performed By: #### L 500.4050 ####[facility] [address] [place], [address] Creatinine [Mass/Vol] 0.99 mg/dL Normal 0.70-1.30 [facility] Comment on above: Result Comment: The validity of the calculated GFR GFRAA in patients over70 years has not been determined. Clinical correlation isessential. Performed By: #### L 500.4050 ####[facility] [address] [place], [address] ECRCL 101.95 ml/min Normal [facility] Comment on above: Performed By: #### L 500.4050 ####[facility] [address] [place], [address] EST GFR - AA 101 mL/min Normal >60 [facility] Comment on above: Result Comment: Afri can Uzbek GFR Calc Performed By: #### L 500.4050 ####[facility] [address] [place], [address] GAP 8 Normal 5-15 [facility] Comment on above: Performed By: #### L 500.4050 ####[facility] [address] [place], [address] GFR/1.73 sq M.predicted among non-blacks MDRD (S/P/Bld) [Vol rate/Area] 84 mL/min/{1.73_m2} Normal >60 [facility] Comment on above: Result Comment: Non- GFR Calc Performed By: #### L 500.4050 ####[facility] [address] [place], [address] Globulin (S) [Mass/Vol] 5.7 g/dL High 2.2-4.2 [facility] Comment on above: Performed By: #### L 500.4050 ####[facility] [address] [place], [address] Glucose [Mass/Vol] 133 mg/dL High 74-106 [facility] Comment on above: Result Comment: Fast ing Glucose result greater than or equal to 126 mg/dLsuggests DIABETES MELLITUS per A.D.A. criteria. Performed By: #### L 500.4050 ####[facility] [address] [place], [address] Potassium [Moles/Vol] 3.7 mmol/L Normal 3.5-5.1 [facility] Comment on above: Performed By: #### L 500.4050 ####[facility] [address] [place], [address] Sodium [Moles/Vol] 139 mmol/L Normal 136-145 [facility] Comment on above: Performed By: #### L 500.4050 ####[facility] [address] [place], [address] T PROT 7.7 g/dL Normal 6.4-8.2 [facility] Comment on above: Performed By: #### L 500.4050 ####[facility] [address] [place], [place], [id number] Urea nitrogen [Mass/Vol] 21 mg/dL High 7-18 [facility] Comment on above: Performed By: #### L 500.4050 ####[facility] [address] [place], [place], [address] Macrocytes detectionOrdered By: John Love on 11-25-2024 Macrocytes Ql (Bld) 1+ [facility] Ovalocyte detectionOrdered B y: John Love on 11-25-2024 Ovalocytes LM Ql (Bld) 1+ [facility] Special Stain Group IIon Special Stain Group II Normal [facility] Comment on above: Performed By: #### P SSII ####[facility] [address] [place], [place], [id number] Target cell detectionOrdered By: John Love on 11-25-2024 Target cells LM Ql (Bld) 1+ [facility] Activated partial thrombopla stin time (aPTT) in platelet poor plasma by coagulation aOrdered By: Kailash Gustafson on 11-24-2024 aPTT Coag (PPP) [Time] 30.0 s 24.1-36.2 [facility] Albumin Elph [Mass/Vol]Order ed By: Kailash Gustafson on 11-24-2024 Albumin [Mass/Vol] 2.3 g/dL Low 2.9-4.4 [facility] Basic Metabolic Profile (BMP )on 11-24-2024 BUN/CRE 18.1 RATIO Normal 10-20 [facility] Comment on above: Performed By: #### L 500.2500, L100.0100 ####[facility] [address] [place], [place], [address] [place],Total 8.1 mg/dL Low 8.5-10.1 [facility] Comment on above: Performed By: #### L 500.2500, L100.0100 ####[facility] [address] [place], [address] Chloride [Moles/Vol] 109 mmol/L High 98-107 [facility] Comment on above: Performed By: #### L 500.2500, L100.0100 ####[facility] [address] [place], [address] CO2 [Moles/Vol] 23.0 mmol/L Normal 21.0-32.0 [facility] Comment on above: Performed By: #### L 500.2500, L100.0100 ####[facility] [address] [place], [address] Creatinine [Mass/Vol] 0.77 mg/dL Normal 0.70-1.30 [facility] Comment on above: Result Comment: The validity of the calculated GFR GFRAA in patients over70 years has not been determined. Clinical correlation isessential. Performed By: #### L 500.2500, L100.0100 ####[facility] [address] [place], [address] ECRCL 131.08 ml/min Normal [facility] Comment on above: Performed By: #### L 500.2500, L100.0100 ####[facility] [address] [place], [address] EST GFR - AA 135 mL/min Normal >60 [facility] Comment on above: Result Comment: Afri can Uzbek GFR Calc Performed By: #### L 500.2500, L100.0100 ####[facility] [address] [place], [address] GAP 7 Normal 5-15 [facility] Comment on above: Performed By: #### L 500.2500, L100.0100 ####[facility] [address] [place], [address] GFR/1.73 sq M.predicted among non-blacks MDRD (S/P/Bld) [Vol rate/Area] 111 mL/min/{1.73_m2} Normal >60 [facility] Comment on above: Result Comment: Non- GFR Calc Performed By: #### L 500.2500, L100.0100 ####[facility] [address] [place], [address] Glucose [Mass/Vol] 76 mg/dL Normal 74-106 [facility] Comment on above: Performed By: #### L 500.2500, L100.0100 ####[facility] [address] [place], [address] Potassium [Moles/Vol] 3.4 mmol/L Low 3.5-5.1 [facility] Comment on above: Performed By: #### L 500.2500, L100.0100 ####[facility] [address] [place], [address] Sodium [Moles/Vol] 139 mmol/L Normal 136-145 [facility] Comment on above: Performed By: #### L 500.2500, L100.0100 ####[facility] [address] [place], [address] Urea nitrogen [Mass/Vol] 14 mg/dL Normal 7-18 [facility] Comment on above: Performed By: #### L 500.2500, L100.0100 ####[facility] [address] [place], [address] CA 19-9 agOrdered By: Landon Gustafson on 11-24-2024 CA 19-9 ag 64 U/mL High 0-35 [facility] Comment on above: [employer] El ectrochemiluminescence Immunoassay(ECLIA)Values obtained with different assay methods or kits cannotbe used interchangeably. Results cannot be interpreted asabsolute evidence of the presence or absence of malignantdisease. CBC W/Diff, Automatedon 11-08 PATH REV Reviewed Normal [facility] Comment on above: Result Comment: EVITA RE Microcytic anemia.Clinical correlation necessary.Rick Penny M.D. 11/24/24 AMENDED REPORT 11/24/24 1607 PATH REV previously reported as: February Performed By: #### L 501.4020, L100.0100, L500.2500, L501.2450, L500.3400, L503.6005, M100.7900 ####[facility] [address] [place], [address] Anisocytosis Ql (Bld) 2+ Normal [facility] Comment on above: Performed By: #### L 500.2500, L100.0100 ####[facility] [address] [place], [place], [address] EGD Reporton 11-24-2024 EGD Report Normal [facility] Flex Sigmoidoscopy Reporton 11-24-2024 Flex Sigmoidoscopy Report Normal [facility] International normalized rat io (INR) calculationOrdered By: Kailash Gustafson on 11-24-2024 INR Coag (Bld) [Relative time] 1.2 {INR} [facility] Interpretation of serum or p lasma protein pattern by immunofixation (narrative resultOrdered By: Kailash Gustafson on 11-24-2024 Protein Fractions Immunofixation Francisco Javier [Interp] Not Observed g/dL Not Observed [facility] LDHon 11-24-2024 LDH 167 U/L Normal 87-241 [facility] Comment on above: Performed By: #### L 800.1280, L803.2200, L3100.2300, L3300.1200, L3300.0700, L3100.5020, L3100.5440, L3100.3425, L504.2610 ####[facility] [address] [place], [place], [address] Lactate dehydrogenase (LDH) measurementOrdered By: Kailash Gustafson on 11-24-2024 LDH [Catalytic activity/Vol] 167 U/L 87-241 [facility] MR/POSTOP.ANEon 11-24-2024 MR/POSTOP.ANE Normal [facility] MR/OHINAPCF1vk 11-24-2024 MR/POSTOPAN2 Normal [facility] MRCP Abdomen without Contras ton 11-24-2024 MRCP Abdomen without Contrast Normal [facility] No Panel InformationOrdered By: Kailash Friend on 11-24-2024 Addendum Document Comment . [facility] Comment on above: Protein electrophore sis scan will follow via computer,mail, or acetylene burner delivery. Partial Thromboplast Timeon 11-24-2024 aPTT Coag (Bld) [Time] 30.0 s Normal 24.1-36.2 [facility] Comment on above: Performed By: #### L 300.4310, L300.3900 ####[facility] [address] [place], [address] aPTT Coag (Bld) [Time] 30.9 s Normal 24.1-36.2 [facility] Comment on above: Performed By: #### L 300.3900, L300.4310 ####[facility] [address] [place], [address] Prothrombin Time w/INRon INR Coag (PPP) [Relative time] 1.2 {INR} Normal [facility] Comment on above: Performed By: #### L 300.4310, L300.3900 ####[facility] [address] [place], [address] PT Coag (PPP) [Time] 15.4 s High 11.7-14.9 [facility] Comment on above: Performed By: #### L 300.4310, L300.3900 ####[facility] [address] [place], [address] INR Coag (PPP) [Relative time] 1.2 {INR} Normal [facility] Comment on above: Performed By: #### L 300.3900, L300.4310 ####[facility] [address] [place], [address] PT Coag (PPP) [Time] 15.1 s High 11.7-14.9 [facility] Comment on above: Performed By: #### L 300.3900, L300.4310 ####[facility] [address] [place], [address] Prothrombin timeOrdered By: Kailash Gustafson on 11-24-2024 PT Coag (PPP) [Time] 15.4 s High 11.7-14.9 [facility] Serum DNA double strand anti body assay (units/volume)Ordered By: Kailash Gustafson on 11-24-2024 DNA double strand Ab Qn (S) 1 [IU]/mL 0-9 [facility] Comment on above: Negative <5 Equivoca l 5 - 9 Positive >9 Serum Scl-70 antibody assay (units/volume)Ordered By: Kailash Gustafson on 11-24-2024 SCL-70 extractable nuclear Ab Qn (S) 0.3 AI 0.0-0.9 [facility] Serum classic neutrophil cyt oplasmic antibody assay (units/volume)Ordered By: Kailash Gustafson on 11-24-2024 Neutrophil cytoplasmic Ab.classic Qn (S) <1:20 titer Neg:<1:20 [facility] Serum mitochondria antibody detectionOrdered By: Kailash Gustafson on 11-24-2024 Mitochondria Ab Ql (S) <20.0 Units 0.0-20.0 [facility] Comment on above: Negative 0.0 - 20.0 Equivocal 20.1 - 24.9 Positive >24.9Mitochondrial (M2) Antibodies are found in 90-96% ofpatients with primary biliary cirrhosis.Performed at: [address] [id number] Director: Sal Linton PhD, Phone: [phone] Serum or plasma IgA measurem ent (mass/volume)Ordered By: Kailash Gustafson on 11-24-2024 IgA [Mass/Vol] 607 mg/dL High 90-386 [facility] Serum or plasma IgG measurem ent (mass/volume)Ordered By: Kailash Gustafson on 11-24-2024 IgG [Mass/Vol] 3414 mg/dL High 603-1613 [facility] Serum or plasma actin IgG an tibody assay (units/volume)Ordered By: Kailash Gustafson on 11-24-2024 Actin IgG Qn 17 Units 0-19 [facility] Comment on above: Negative 0 - 19 Weak positive 20 - 30 Moderate to strong positive >30 Actin Antibodies are found in 52-85% of patients with autoimmune hepatitis or chronic active hepatitis and in 22% of patients with primary biliary cirrhosis.Performed at: [facility] [address] [id number] Director: Sal Linton PhD, Phone: [phone] Serum or plasma alpha 1 glob ulin measurement by electrophoresis (mass/volume)Ordered By: Kailash Gustafson on 11-24-2024 Alpha 1 globulin Elph [Mass/Vol] 0.4 g/dL 0.0-0.4 [facility] Alpha 1 globulin Elph [Mass/Vol] 0.7 g/dL 0.4-1.0 [facility] Serum or plasma beta globuli n measurement by electrophoresis (mass/volume)Ordered By: Kailash Gustafson on 11-24-2024 Beta globulin Elph [Mass/Vol] 1.3 g/dL 0.7-1.3 [facility] Serum or plasma carcinoembry onic antigen measurement (mass/volume)Ordered By: Kailash Gustafson on 11-24-2024 Carcinoembryonic Ag [Mass/Vol] 3.4 ng/mL 0.0-4.7 [facility] Comment on above: Nonsmokers <3.9 Smok ers <5.6[employer] Electrochemiluminescence Immunoassay(ECLIA)Values obtained with different assay methods or kitscannot be used interchangeably. Results cannot beinterpreted as absolute evidence of the presence orabsence of malignant disease. Serum or plasma gamma globul in measurement by electrophoresis (mass/volume)Ordered By: Kailash Gustafson on 11-24-2024 Gamma globulin Elph [Mass/Vol] 3.2 g/dL High 0.4-1.8 [facility] Serum or plasma immunoelectr ophoresis interpretation (nominal result)Ordered By: Kailash Gustafson on 11-24-2024 Interpretation IEP [Interp] Comment . [facility] Comment on above: No monoclonality det ected. Serum or plasma protein bernard urement (mass/volume)Ordered By: Kailash Gustafson on 11-24-2024 Protein [Mass/Vol] 7.9 g/dL 6.0-8.5 [facility] Serum perinuclear neutrophil cytoplasmic antibody titer by immunofluorescenceOrdered By: Kailash Gustafson on 11-24-2024 Neutrophil cytoplasmic Ab.perinuclear IF (S) [Titer] <1:20 titer Neg:<1:20 [facility] Comment on above: The presence of posi tive fluorescence exhibiting P-ANCA orC-ANCA patterns alone is not specific for the diagnosis ofWegener's Granulomatosis (WG) or microscopic polyangiitis.Decisions about treatment should not be based solely onANCA IFA results. The International ANCA Group Consensusrecommends follow up testing of positive sera with both VA-3 and MPO-ANCA enzyme immunoassays. As many as 5% serumsamples are positive only by EIA. Ref. AM J Clin Dhyuoz2159;111:507-513. Surgery Specimen Level Montez 11-24-2024 Surgery Specimen Level IV Normal [facility] Comment on above: Performed By: #### P SUIV ####[facility] [address] [place], [place], [id number] Basic Metabolic Profile (BMP )on 11-23-2024 BUN Normal 7-18 [facility] Comment on above: Result Comment: CANC EL PER OM Performed By: #### L 500.2500 ####[facility] [address] [place], [place], [address] BUN/CRE Normal 10-20 [facility] Comment on above: Result Comment: CANC EL PER OM Performed By: #### L 500.2500 ####[facility] [address] [place], [place], [id number] [place],Total Normal 8.5-10.1 [facility] Comment on above: Result Comment: CANC EL PER OM Performed By: #### L 500.2500 ####[facility] [address] [place], [address] CL Normal 98-107 [facility] Comment on above: Result Comment: CANC EL PER OM Performed By: #### L 500.2500 ####[facility] [address] [place], [address] CO2 Normal 21.0-32.0 [facility] Comment on above: Result Comment: CANC EL PER OM Performed By: #### L 500.2500 ####[facility] [address] [place], [address] CREAT,SERUM Normal 0.70-1.30 [facility] Comment on above: Result Comment: CANC EL PER OM Performed By: #### L 500.2500 ####[facility] [address] [place], [address] EST GFR Normal >60 [facility] Comment on above: Result Comment: CANC EL PER OM Performed By: #### L 500.2500 ####[facility] [address] [place], [address] EST GFR - AA Normal >60 [facility] Comment on above: Result Comment: CANC EL PER OM Performed By: #### L 500.2500 ####[facility] [address] [place], [address] GAP Normal 5-15 [facility] Comment on above: Result Comment: CANC EL PER OM Performed By: #### L 500.2500 ####[facility] [address] [place], [address] GLU Normal 74-106 [facility] Comment on above: Result Comment: CANC EL PER OM Performed By: #### L 500.2500 ####[facility] [address] [place], [address] Potassium Normal 3.5-5.1 [facility] Comment on above: Result Comment: CANC EL PER OM Performed By: #### L 500.2500 ####[facility] [address] [place], [address] Basic Metabolic Profile (BMP) Normal 136-145 [facility] Comment on above: Result Comment: CANC EL PER OM Performed By: #### L 500.2500 ####[facility] [address] [place], [address] CBC W/Diff, Automatedon 11-08 Absolute Lymph 0.99 X10 3/uL Normal 0.83-4.51 [facility] Comment on above: Performed By: #### L 501.9520, L501.2300, L100.0100, L500.4050, L501.5200 ####[facility] [address] [place], [address] Absolute Neut 6.9 X10 3/uL Normal 2.0-7.7 [facility] Comment on above: Performed By: #### L 501.9520, L501.2300, L100.0100, L500.4050, L501.5200 ####[facility] [address] [place], [address] Basophils/100 WBC (Bld) 0.8 % Normal 0-1 [facility] Comment on above: Performed By: #### L 501.9520, L501.2300, L100.0100, L500.4050, L501.5200 ####[facility] [address] [place], [address] Eosinophils/100 WBC (Bld) 4.9 % Normal 0-5 [facility] Comment on above: Performed By: #### L 501.9520, L501.2300, L100.0100, L500.4050, L501.5200 ####[facility] [address] [place], [address] Erythrocyte distribution width (RBC) [Ratio] 21.5 % High 11.6-14.6 [facility] Comment on above: Performed By: #### L 501.9520, L501.2300, L100.0100, L500.4050, L501.5200 ####[facility] [address] [place], [address] Hematocrit (Bld) [Volume fraction] 24.0 % Low 40-54 [facility] Comment on above: Performed By: #### L 501.9520, L501.2300, L100.0100, L500.4050, L501.5200 ####[facility] [address] [place], [address] Hemoglobin (Bld) [Mass/Vol] 6.8 g/dL Low 13.0-16.5 [facility] Comment on above: Performed By: #### L 501.9520, L501.2300, L100.0100, L500.4050, L501.5200 ####[facility] [address] [place], [address] IG% 0.200 Normal 0.0-0.9 [facility] Comment on above: Result Comment: IG% - Immature Granulocytes (promyelocytes, myelocytes andmetamyelocytes) > 1% indicates that a LEFT SHIFT is Present. Performed By: #### L 501.9520, L501.2300, L100.0100, L500.4050, L501.5200 ####[facility] [address] [place], [address] Lymphocytes/100 WBC (Bld) 10.6 % Low 19-41 [facility] Comment on above: Performed By: #### L 501.9520, L501.2300, L100.0100, L500.4050, L501.5200 ####[facility] [address] [place], [address] MCH (RBC) [Entitic mass] 20.3 pg Low 27.0-32.0 [facility] Comment on above: Performed By: #### L 501.9520, L501.2300, L100.0100, L500.4050, L501.5200 ####[facility] [address] [place], [address] MCHC (RBC) [Mass/Vol] 28.3 g/dL Low 32-36 [facility] Comment on above: Performed By: #### L 501.9520, L501.2300, L100.0100, L500.4050, L501.5200 ####[facility] [address] [place], [address] MCV (RBC) [Entitic vol] 71.6 fL Low 80-94 [facility] Comment on above: Performed By: #### L 501.9520, L501.2300, L100.0100, L500.4050, L501.5200 ####[facility] [address] [place], [address] Monocytes/100 WBC (Bld) 9.7 % Normal 0-10 [facility] Comment on above: Performed By: #### L 501.9520, L501.2300, L100.0100, L500.4050, L501.5200 ####[facility] [address] [place], [address] Neutrophils/100 WBC (Bld) 73.8 % High 47-70 [facility] Comment on above: Performed By: #### L 501.9520, L501.2300, L100.0100, L500.4050, L501.5200 ####[facility] [address] [place], [address] Nucleated RBC (Bld) [#/Vol] 0 10*3/uL Normal 0-5 [facility] Comment on above: Performed By: #### L 501.9520, L501.2300, L100.0100, L500.4050, L501.5200 ####[facility] [address] [place], [address] Platelet mean volume (Bld) [Entitic vol] 8.5 fL Normal 6.2-12.0 [facility] Comment on above: Performed By: #### L 501.9520, L501.2300, L100.0100, L500.4050, L501.5200 ####[facility] [address] [place], [address] Platelets (Bld) [#/Vol] 295 10*3/uL Normal 150-450 [facility] Comment on above: Performed By: #### L 501.9520, L501.2300, L100.0100, L500.4050, L501.5200 ####[facility] [address] [place], [address] RBC (Bld) [#/Vol] 3.35 10*6/uL Low 4.6-6.2 [facility] Comment on above: Performed By: #### L 501.9520, L501.2300, L100.0100, L500.4050, L501.5200 ####[facility] [address] [place], [address] RDW SD 55.9 fl High 35.1-43.9 [facility] Comment on above: Performed By: #### L 501.9520, L501.2300, L100.0100, L500.4050, L501.5200 ####[facility] [address] [place], [address] WBC (Bld) [#/Vol] 9.3 10*3/uL Normal 4.4-11.0 [facility] Comment on above: Performed By: #### L 501.9520, L501.2300, L100.0100, L500.4050, L501.5200 ####[facility] [address] [place], [address] Comprehensive Metabolic Prof ilon 11-23-2024 Albumin [Mass/Vol] 2.0 g/dL Low 3.2-5.0 [facility] Comment on above: Performed By: #### L 501.9520, L501.2300, L100.0100, L500.4050, L501.5200 ####[facility] [address] [place], [address] Albumin/Globulin [Mass ratio] 0.4 {ratio} Low 0.9-2.4 [facility] Comment on above: Performed By: #### L 501.9520, L501.2300, L100.0100, L500.4050, L501.5200 ####[facility] [address] [place], [address] ALK P 586 U/L High 45-117 [facility] Comment on above: Performed By: #### L 501.9520, L501.2300, L100.0100, L500.4050, L501.5200 ####[facility] [address] [place], [address] ALT [Catalytic activity/Vol] 26 U/L Normal 16-61 [facility] Comment on above: Performed By: #### L 501.9520, L501.2300, L100.0100, L500.4050, L501.5200 ####[facility] [address] [place], [address] AST [Catalytic activity/Vol] 39 U/L High 15-37 [facility] Comment on above: Performed By: #### L 501.9520, L501.2300, L100.0100, L500.4050, L501.5200 ####[facility] [address] [place], [address] Bilirubin [Mass/Vol] 1.20 mg/dL High 0.20-1.00 [facility] Comment on above: Result Comment: For patients on eltrombopag therapy, use of Dimension [place] TBIL is not recommended. Performed By: #### L 501.9520, L501.2300, L100.0100, L500.4050, L501.5200 ####[facility] [address] [place], [address] BUN/CRE 14.7 RATIO Normal 10-20 [facility] Comment on above: Performed By: #### L 501.9520, L501.2300, L100.0100, L500.4050, L501.5200 ####[facility] [address] [place], [address] CA,Total 7.7 mg/dL Low 8.5-10.1 [facility] Comment on above: Performed By: #### L 501.9520, L501.2300, L100.0100, L500.4050, L501.5200 ####[facility] [address] [place], [address] Chloride [Moles/Vol] 108 mmol/L High 98-107 [facility] Comment on above: Performed By: #### L 501.9520, L501.2300, L100.0100, L500.4050, L501.5200 ####[facility] [address] [place], [address] CO2 [Moles/Vol] 22.0 mmol/L Normal 21.0-32.0 [facility] Comment on above: Performed By: #### L 501.9520, L501.2300, L100.0100, L500.4050, L501.5200 ####[facility] [address] [place], [address] Creatinine [Mass/Vol] 0.82 mg/dL Normal 0.70-1.30 [facility] Comment on above: Result Comment: The validity of the calculated GFR GFRAA in patients over70 years has not been determined. Clinical correlation isessential. Performed By: #### L 501.9520, L501.2300, L100.0100, L500.4050, L501.5200 ####[facility] [address] [place], [address] ECRCL 123.09 ml/min Normal [facility] Comment on above: Performed By: #### L 501.9520, L501.2300, L100.0100, L500.4050, L501.5200 ####[facility] [address] [place], [address] EST GFR - AA 126 mL/min Normal >60 [facility] Comment on above: Result Comment: Afri can Uzbek GFR Calc Performed By: #### L 501.9520, L501.2300, L100.0100, L500.4050, L501.5200 ####[facility] [address] [place], [address] GAP 7 Normal 5-15 [facility] Comment on above: Performed By: #### L 501.9520, L501.2300, L100.0100, L500.4050, L501.5200 ####[facility] [address] [place], [address] GFR/1.73 sq M.predicted among non-blacks MDRD (S/P/Bld) [Vol rate/Area] 104 mL/min/{1.73_m2} Normal >60 [facility] Comment on above: Result Comment: Non- GFR Calc Performed By: #### L 501.9520, L501.2300, L100.0100, L500.4050, L501.5200 ####[facility] [address] [place], [address] Globulin (S) [Mass/Vol] 5.5 g/dL High 2.2-4.2 [facility] Comment on above: Performed By: #### L 501.9520, L501.2300, L100.0100, L500.4050, L501.5200 ####[facility] [address] [place], [address] Glucose [Mass/Vol] 110 mg/dL High 74-106 [facility] Comment on above: Result Comment: Fast ing Glucose result from 100 to 125 mg/dLsuggests IMPAIRED HOMEOSTASIS per A.D.A. criteria. Performed By: #### L 501.9520, L501.2300, L100.0100, L500.4050, L501.5200 ####[facility] [address] [place], [address] Potassium [Moles/Vol] 3.2 mmol/L Low 3.5-5.1 [facility] Comment on above: Performed By: #### L 501.9520, L501.2300, L100.0100, L500.4050, L501.5200 ####[facility] [address] [place], [address] Sodium [Moles/Vol] 136 mmol/L Normal 136-145 [facility] Comment on above: Performed By: #### L 501.9520, L501.2300, L100.0100, L500.4050, L501.5200 ####[facility] [address] [place], [address] T PROT 7.5 g/dL Normal 6.4-8.2 [facility] Comment on above: Performed By: #### L 501.9520, L501.2300, L100.0100, L500.4050, L501.5200 ####[facility] [address] [place], [address] Urea nitrogen [Mass/Vol] 12 mg/dL Normal 7-18 [facility] Comment on above: Performed By: #### L 501.9520, L501.2300, L100.0100, L500.4050, L501.5200 ####[facility] [address] [place], [address] HH, Hemoglobin AND Hematocri ton 11-23-2024 Hematocrit (Bld) [Volume fraction] 27.1 % Low 40-54 [facility] Comment on above: Performed By: #### L 100.0600 ####[facility] [address] [place], [address] Hemoglobin (Bld) [Mass/Vol] 7.9 g/dL Low 13.0-16.5 [facility] Comment on above: Performed By: #### L 100.0600 ####[facility] [address] [place], [address] Hematocrit (Bld) [Volume fraction] 26.9 % Low 40-54 [facility] Comment on above: Performed By: #### L 100.0600 ####[facility] [address] [place], [address] Hemoglobin (Bld) [Mass/Vol] 8.1 g/dL Low 13.0-16.5 [facility] Comment on above: Performed By: #### L 100.0600 ####[facility] [address] [place], [address] MR/CON.PCM.GIon 11-23-2024 MR/CON.PCM.GI Normal [facility] Magnesiumon 11-23-2024 Magnesium [Mass/Vol] 1.5 mg/dL Low 1.6-2.6 [facility] Comment on above: Performed By: #### L 501.9520, L501.2300, L100.0100, L500.4050, L501.5200 ####[facility] [address] [place], [address] Phosphoruson 11-23-2024 Phosphate [Mass/Vol] 3.1 mg/dL Normal 2.5-4.9 [facility] Comment on above: Performed By: #### L 501.9520, L501.2300, L100.0100, L500.4050, L501.5200 ####[facility] [address] [place], [address] Serum or plasma thyroid stim ulating hormone (TSH) measurement (units/volume)Ordered By: Dinah Lazaro on 11-23-2024 TSH Qn 7.280 uIU/mL High 0.358-3.74 0 [facility] Thyroid Stim Hormone (TSH)on 11-23-2024 TSH 7.280 uIU/mL High 0.358-3.74 0 [facility] Comment on above: Performed By: #### L 501.9520, L501.2300, L100.0100, L500.4050, L501.5200 ####[facility] [address] [place], [address] 12 Lead EKGon 11-22-2024 12 Lead EKG Normal [facility] Abdomen/Pelvis W IV Cont ONL Yon 11-22-2024 Abdomen/Pelvis W IV Cont ONLY Normal [facility] BNP (brain natriuretic pepti de measurement)Ordered By: Deny Elias on 11-22-2024 Natriuretic peptide B (Bld) [Mass/Vol] 503.1 pg/mL High 0-100 [facility] BNP,B-Type NATRIURETIC PEPTI Chung 11-22-2024 Natriuretic peptide B (Bld) [Mass/Vol] 503.1 pg/mL High 0-100 [facility] Comment on above: Performed By: #### L 503.6620 ####[facility] [address] [facility] [address] BRCon 11-22-2024 RC Normal [facility] Comment on above: Result Comment: [id number] OP RC TRANSFUSED 11/22/24 [id number] OP RC TRANSFUSED 11/22/24 1828 Performed By: #### B RC, BTS ####[facility] [address] [place], [address] RC Normal [facility] Comment on above: Result Comment: [id number] AP RC TRANSFUSED 11/23/24 [id number] AP RC TRANSFUSED 11/22/24 2152 Performed By: #### B RC ####[facility] [address] [place], [address] Result Comment: [id number] AP RC TRANSFUSED 11/23/24 0815 Basic Metabolic Profile (BMP )on 11-22-2024 BUN/CRE 13.7 RATIO Normal 10-20 [facility] Comment on above: Order Comment: 'TROP ' Serial specimen #1, #2 or #3: 1 Performed By: #### L 501.4020, L100.0100, L500.2500, L501.2450, L500.3400, L503.6005, M100.7900 ####[facility] [address] [place], [address] CA,Total 8.2 mg/dL Low 8.5-10.1 [facility] Comment on above: Order Comment: 'TROP ' Serial specimen #1, #2 or #3: 1 Performed By: #### L 501.4020, L100.0100, L500.2500, L501.2450, L500.3400, L503.6005, M100.7900 ####[facility] [address] [place], [address] Chloride [Moles/Vol] 106 mmol/L Normal 98-107 [facility] Comment on above: Order Comment: 'TROP ' Serial specimen #1, #2 or #3: 1 Performed By: #### L 501.4020, L100.0100, L500.2500, L501.2450, L500.3400, L503.6005, M100.7900 ####[facility] [address] [place], [address] CO2 [Moles/Vol] 24.0 mmol/L Normal 21.0-32.0 [facility] Comment on above: Order Comment: 'TROP ' Serial specimen #1, #2 or #3: 1 Performed By: #### L 501.4020, L100.0100, L500.2500, L501.2450, L500.3400, L503.6005, M100.7900 ####[facility] [address] [place], [address] Creatinine [Mass/Vol] 0.88 mg/dL Normal 0.70-1.30 [facility] Comment on above: Order Comment: 'TROP ' Serial specimen #1, #2 or #3: 1 Result Comment: The validity of the calculated GFR GFRAA in patients over70 years has not been determined. Clinical correlation isessential. Performed By: #### L 501.4020, L100.0100, L500.2500, L501.2450, L500.3400, L503.6005, M100.7900 ####[facility] [address] [place], [address] ECRCL 124.23 ml/min Normal [facility] Comment on above: Order Comment: 'TROP ' Serial specimen #1, #2 or #3: 1 Performed By: #### L 501.4020, L100.0100, L500.2500, L501.2450, L500.3400, L503.6005, M100.7900 ####[facility] [address] [place], [address] EST GFR - AA 116 mL/min Normal >60 [facility] Comment on above: Order Comment: 'TROP ' Serial specimen #1, #2 or #3: 1 Result Comment: Afri can Uzbek GFR Calc Performed By: #### L 501.4020, L100.0100, L500.2500, L501.2450, L500.3400, L503.6005, M100.7900 ####[facility] [address] [place], [address] GAP 6 Normal 5-15 [facility] Comment on above: Order Comment: 'TROP ' Serial specimen #1, #2 or #3: 1 Performed By: #### L 501.4020, L100.0100, L500.2500, L501.2450, L500.3400, L503.6005, M100.7900 ####[facility] [address] [place], [address] GFR/1.73 sq M.predicted among non-blacks MDRD (S/P/Bld) [Vol rate/Area] 96 mL/min/{1.73_m2} Normal >60 [facility] Comment on above: Order Comment: 'TROP ' Serial specimen #1, #2 or #3: 1 Result Comment: Non- GFR Calc Performed By: #### L 501.4020, L100.0100, L500.2500, L501.2450, L500.3400, L503.6005, M100.7900 ####[facility] [address] [place], [address] Glucose [Mass/Vol] 72 mg/dL Low 74-106 [facility] Comment on above: Order Comment: 'TROP ' Serial specimen #1, #2 or #3: 1 Performed By: #### L 501.4020, L100.0100, L500.2500, L501.2450, L500.3400, L503.6005, M100.7900 ####[facility] [address] [place], [address] Potassium [Moles/Vol] 3.5 mmol/L Normal 3.5-5.1 [facility] Comment on above: Order Comment: 'TROP ' Serial specimen #1, #2 or #3: 1 Performed By: #### L 501.4020, L100.0100, L500.2500, L501.2450, L500.3400, L503.6005, M100.7900 ####[facility] [address] [place], [address] Sodium [Moles/Vol] 136 mmol/L Normal 136-145 [facility] Comment on above: Order Comment: 'TROP ' Serial specimen #1, #2 or #3: 1 Performed By: #### L 501.4020, L100.0100, L500.2500, L501.2450, L500.3400, L503.6005, M100.7900 ####[facility] [address] [place], [place], [address] Urea nitrogen [Mass/Vol] 12 mg/dL Normal 7-18 [facility] Comment on above: Order Comment: 'TROP ' Serial specimen #1, #2 or #3: 1 Performed By: #### L 501.4020, L100.0100, L500.2500, L501.2450, L500.3400, L503.6005, M100.7900 ####[facility] [address] [place], [place], [address] Bilirubin Test strip Ql (U)O rdered By: Deny Elias on 11-22-2024 Bilirubin Ql (U) 1 mg/dL High Negative [facility] Comment on above: COLOR OF URINE MAY A FFECT DIPSTICK RESULTS. Bilirubin directOrdered By: Deny Elias on 11-22-2024 Bilirubin.direct [Mass/Vol] 0.87 mg/dL High 0.00-0.30 [facility] CTA Chest W/WO Contraston CTA Chest W/WO Contrast Normal [facility] Echo Completeon 11-22-2024 Echo Complete Normal [facility] Emergency Department Summary on 11-22-2024 Emergency Department Summary Normal [facility] H AND P Exam - Hospitaliston 11-22-2024 H&P Exam - Hospitalist Normal [facility] HH, Hemoglobin AND Hematocri ton 11-22-2024 Hematocrit (Bld) [Volume fraction] 22.7 % Low 40-54 [facility] Comment on above: Performed By: #### L 100.0600 ####[facility] [address] [place], [place], [address] Hemoglobin (Bld) [Mass/Vol] 6.2 g/dL Low 13.0-16.5 [facility] Comment on above: Performed By: #### L 100.0600 ####[facility] [address] [place], [place], [address] Influenza virus A and B and SARS-CoV-2 (COVID-19) and Respiratory syncytial virus RNAOrdered By: Deny Elias on 11-22-2024 SARS-CoV-2 (COVID-19) RNA ZANDER+probe Ql (Unsp spec) [facility] Ketones Test strip Ql (U)Ord ered By: Deny Elias on 11-22-2024 Ketones Ql (U) Negative Negative [facility] L501.4020on 11-22-2024 TROPONIN-I HS 18 pg/mL Normal 3.0-78.0 [facility] Comment on above: Order Comment: 'TROP ' Serial specimen #1, #2 or #3: 1 Result Comment: Plea se Note: New Test Units and Gender Specific Reference Ranges. For more information see Policy Stat Procedure [place] High Sensitivity Troponin (TNIH) and attachments. Performed By: #### L 501.4020, L100.0100, L500.2500, L501.2450, L500.3400, L503.6005, M100.7900 ####[facility] [address] [place], [place], [address] Lactic Acidon 11-22-2024 Lactate [Moles/Vol] 1.2 mmol/L Normal 0.4-1.9 [facility] Comment on above: Order Comment: Y Performed By: #### L 501.4020, L100.0100, L500.2500, L501.2450, L500.3400, L503.6005, M100.7900 ####[facility] [address] [place], [address] Lactic acid measurementOrder ed By: Deny Elias on 11-22-2024 Lactate [Moles/Vol] 1.2 mmol/L 0.4-2.0 [facility] Lipaseon 11-22-2024 Lipase [Catalytic activity/Vol] 26 U/L Low 73-393 [facility] Comment on above: Order Comment: 'TROP ' Serial specimen #1, #2 or #3: 1 Performed By: #### L 501.4020, L100.0100, L500.2500, L501.2450, L500.3400, L503.6005, M100.7900 ####[facility] [address] [place], [address] Lipase measurementOrdered By : Deny Elias on 11-22-2024 Lipase [Catalytic activity/Vol] 26 U/L Low 73-393 [facility] Liver Profileon 11-22-2024 Albumin [Mass/Vol] 2.1 g/dL Low 3.2-5.0 [facility] Comment on above: Order Comment: 'TROP ' Serial specimen #1, #2 or #3: 1 Performed By: #### L 501.4020, L100.0100, L500.2500, L501.2450, L500.3400, L503.6005, M100.7900 ####[facility] [address] [place], [address] ALK P 693 U/L High 45-117 [facility] Comment on above: Order Comment: 'TROP ' Serial specimen #1, #2 or #3: 1 Performed By: #### L 501.4020, L100.0100, L500.2500, L501.2450, L500.3400, L503.6005, M100.7900 ####[facility] [address] [place], [address] ALT [Catalytic activity/Vol] 34 U/L Normal 16-61 [facility] Comment on above: Order Comment: 'TROP ' Serial specimen #1, #2 or #3: 1 Performed By: #### L 501.4020, L100.0100, L500.2500, L501.2450, L500.3400, L503.6005, M100.7900 ####[facility] [address] [place], [address] AST [Catalytic activity/Vol] 49 U/L High 15-37 [facility] Comment on above: Order Comment: 'TROP ' Serial specimen #1, #2 or #3: 1 Performed By: #### L 501.4020, L100.0100, L500.2500, L501.2450, L500.3400, L503.6005, M100.7900 ####[facility] [address] [place], [address] Bilirubin [Mass/Vol] 1.30 mg/dL High 0.20-1.00 [facility] Comment on above: Order Comment: 'TROP ' Serial specimen #1, #2 or #3: 1 Result Comment: For patients on eltrombopag therapy, use of Dimension [place] TBIL is not recommended. Performed By: #### L 501.4020, L100.0100, L500.2500, L501.2450, L500.3400, L503.6005, M100.7900 ####[facility] [address] [place], [address] Bilirubin.direct [Mass/Vol] 0.87 mg/dL High 0.00-0.30 [facility] Comment on above: Order Comment: 'TROP ' Serial specimen #1, #2 or #3: 1 Performed By: #### L 501.4020, L100.0100, L500.2500, L501.2450, L500.3400, L503.6005, M100.7900 ####[facility] [address] [place], [place], [address] Globulin (S) [Mass/Vol] 6.6 g/dL High 2.2-4.2 [facility] Comment on above: Order Comment: 'TROP ' Serial specimen #1, #2 or #3: 1 Performed By: #### L 501.4020, L100.0100, L500.2500, L501.2450, L500.3400, L503.6005, M100.7900 ####[facility] [address] [place], [address] T PROT 8.7 g/dL High 6.4-8.2 [facility] Comment on above: Order Comment: 'TROP ' Serial specimen #1, #2 or #3: 1 Performed By: #### L 501.4020, L100.0100, L500.2500, L501.2450, L500.3400, L503.6005, M100.7900 ####[facility] [address] [place], [address] M100.678on 11-22-2024 M100.678 SARS-CoV-2 (COVID 19 ) Negative INFLUENZA A Negative INFLUENZA B Negative RSV PCR Negative Normal [facility] Comment on above: Performed By: #### M 100.678, L400.0001 ####[facility] [id number] [place], [place], [id number] Microscopic analysis of urin e for red blood cells (RBC)Ordered By: Deny Elias on 11-22-2024 Microscopic analysis of urine for red blood cells (RBC) 0 SEEN /hpf 0-5 [facility] Mucus LM Ql (Urine sed)Order ed By: Deny Elias on 11-22-2024 Mucus Ql (Urine sed) 0 SEEN /hpf [facility] Nitrite Test strip Ql (U)Ord ered By: Deny Elias on 11-22-2024 Nitrite Ql (U) Negative Negative [facility] Protein Test strip Ql (U)Ord ered By: Deny Elias on 11-22-2024 Protein Ql (U) 30 mg/dl High Negative [facility] Prothrombin Time w/INRon INR Coag (PPP) [Relative time] 1.3 {INR} Normal [facility] Comment on above: Performed By: #### L 300.3900 ####[facility] [address] [place], [place], [id number] PT Coag (PPP) [Time] 16.0 s High 11.7-14.9 [facility] Comment on above: Performed By: #### L 300.3900 ####[facility] [address] [place], [place], [phone] Review by pathologistOrdered By: Deny Elias on 11-22-2024 Pathologist review Francisco Javier (Unsp spec) [Interp] Reviewed [facility] Comment on above: Previous reported re sult: Renetta price Edited by: CYNDI on 11/24/24:1607SEVERE Microcytic anemia.Clinical correlation necessary.Rick Penny M.D. 11/24/24 AMENDED REPORT 11/24/24 1607 PATH REV previously reported as: Renetta price Squamous epithelial cells de tection in urine sediment by light microscopyOrdered By: Deny Elias on 11-22-2024 Epithelial cells.squamous LM Ql (Urine sed) 0 SEEN /hpf 0-5 [facility] Stool Occult Blood iFOBon STOB Positive Normal [facility] Comment on above: Performed By: #### L 501.4020, L100.0100, L500.2500, L501.2450, L500.3400, L503.6005, M100.7900 ####[facility] [address] [place], [place], [phone] Stool gastrointestinal hemog lobin detection by immunologic methodOrdered By: Deny Elias on 11-22-2024 Lower GI hemoglobin IA Ql (Stl) Positive Abnormal [facility] Troponin IOrdered By: Deny gonzales on 11-22-2024 Troponin I 18 pg/mL 3.0-78.0 [facility] Comment on above: Please Note: New Digna t Units and Gender Specific Reference Ranges. For more information see Policy Stat Procedure [place] High Sensitivity Troponin (TNIH) and attachments. Type AND Screenon 11-22-2024 ABO and Rh group Nom (Bld) Blood group A Rh(D) positive Normal [facility] Comment on above: Order Comment: CMV N EG? NNumber of units to transfuse: 2Is there a >20% drop in pt's BP? YIs pt's HR > 100 bpm? YReason for Ordering Blood: AcuteAre the blood/blood products to be transfused? YIs the patient having/had surgery? NWkirit Hernández Performed By: #### B RC, BTS ####[facility] [address] [place], [place], [id number] Urinalysis, Completeon 11-22 RBC 0 SEEN Normal 0-5 [facility] Comment on above: Order Comment: COLLE CTOR TO SPECIFY Performed By: #### M 100.678, L400.0001 ####[facility] [address] [place], [place], [id number] Urine clarityOrdered By: Ryanne Elias on 11-22-2024 Clarity (U) Clear Clear [facility] Urine color determinationOrd ered By: Deny Elias on 11-22-2024 Color (U) Yellow Yellow [facility] Urine glucose detectionOrder ed By: Deny Elias on 11-22-2024 Glucose Ql (U) Normal mg/dl Normal [facility] Urine leukocyte esterase det ection by dipstickOrdered By: Deny Elias on 11-22-2024 Leukocyte esterase Test strip Ql (U) 25 /ul High Negative [facility] Urine pHOrdered By: Deny nevarez on 11-22-2024 pH (U) 5.0 [pH] 5.0 - 8.0 [facility] Urine sediment bacteria coun t by microscopy (number/high power field)Ordered By: Deny Elias on 02-15-2025 Bacteria LM.HPF (Urine sed) [#/Area] 0 /[HPF] None Seen [facility] Urine specific gravity measu rementOrdered By: Deny Curt on 11-22-2024 Specific gravity (U) [Rel density] 1.015 1.002-1.03 0 [facility] Urine urobilinogen measureme ntOrdered By: Deny Elias on 11-22-2024 Urobilinogen Ql (U) 4 mg/dl High Normal [facility] Venous Duplex US - Dannie Extre mon 11-22-2024 Venous Duplex US - Dannie Extrem Normal [facility] White blood cell countOrdere d By: Deny Elias on 11-22-2024 White blood cell count 0 SEEN /hpf 0-5 [facility] CNOVon 07-25-2024 CNOV Office Visit (UCWSTR ) ----- DENY BRONSON ([id number]) 1970 M Date Time Provider Department 07/25/24 10:15 AM THOMAS GARCIA [facility] During your visit today, we recorded the [...] house is not overly tidy. I recommended [id number] antihistamine such as Claritin or Zyrtec and discussed with him that he would benefit with having an filling separator come and evaluate his house for insects and/or bedbugs. Patient did bring a small plastic bag of things that he found on his body which appeared to be mostly scabs and mouse excrement. Thomas Garcia APRN.LAURA Referring Provider: SELF [200] Allergies As of Date: 07/25/2024 (No Known Allergies) Date Reviewed: 07/25/2024 Reviewed by: Thomas Garcia APRN.CNP - Fully Assessed Reason for Visit: Insect Bite [929] Cmt: Widespread, unsure if bed bug bites Primary Visit Diagnosis:Insect bites and stings, initial encounter [W57.XXXA] Problem List As Of Date: 07/25/2024 (None) Encounter Status:Closed by THOMAS GARCIA on 07/25/24 Normal [facility] Blood hemoglobin measurement (mass/volume)Ordered By: Sal Jones on 04-25-2023 Hemoglobin (Bld) [Mass/Vol] 10.2 g/dL 13.0-16.5 [facility] Hematocrit Auto (Bld) [Volum e fraction]Ordered By: Sal Jones on 04-25-2023 Hematocrit (Bld) [Volume fraction] 34.9 % 40-54 [facility] Serum or plasma C reactive p rotein measurement (mass/volume)Ordered By: Sal Jones on 04-25-2023 CRP [Mass/Vol] 22.00 mg/L 0.0-3.0 [facility] Comment on above: C-Reactive Protein ( CRP) provides useful information for thediagnosis, therapy and monitoring of inflammatory processesand associated diseases. For the evaluation of Relative Riskfor Cardiovascular Disease, a High Sensitivity CRP (HSCRP)should be ordered. Basophil percentageOrdered B y: Sal Jones on 02-21-2023 WBC (Bld) [#/Vol] 12.6 10*3/uL 4.4-11.0 [facility] Blood erythrocytes count (nu mber/volume)Ordered By: Sal Jones on 02-21-2023 RBC (Bld) [#/Vol] 4.11 10*6/uL 4.6-6.2 [facility] Blood hemoglobin measurement (mass/volume)Ordered By: Sal Jones on 02-21-2023 Hemoglobin (Bld) [Mass/Vol] 9.1 g/dL 13.0-16.5 [facility] Blood platelet mean volumeOr dered By: Sal Jones on 02-21-2023 Platelet mean volume (Bld) [Entitic vol] 9.6 fL 6.2-12.0 [facility] Determination of erythrocyte mean corpuscular volume (MCV)Ordered By: Sal Jones on 02-21-2023 MCV (RBC) [Entitic vol] 76.4 fL 80-94 [facility] Hematocrit Auto (Bld) [Volum e fraction]Ordered By: Sal Jones on 02-21-2023 Hematocrit (Bld) [Volume fraction] 31.4 % 40-54 [facility] Iron measurement (mass/mass) Ordered By: Sal Jones on 02-21-2023 Iron (Unsp spec) [Mass/Mass] 23 ug/dL 65-175 [facility] Laboratory - Hematology and Cell countsOrdered By: Sal Jones on 02-21-2023 Erythrocyte distribution width (RBC) [Entitic vol] 47.5 fL 35.1-43.9 [facility] Erythrocyte distribution width (RBC) [Ratio] 17.3 % 11.6-14.6 [facility] MCH (RBC) [Entitic mass] 22.1 pg 27.0-32.0 [facility] MCHC Auto (RBC) [Mass/Vol]Or dered By: Sal Jones on 02-21-2023 MCHC (RBC) [Mass/Vol] 29.0 g/dL 32-36 [facility] Platelets bldOrdered By: Anam Jones on 02-21-2023 Platelets (Bld) [#/Vol] 486 10*3/uL 150-450 [facility] Serum or plasma C reactive p rotein measurement (mass/volume)Ordered By: Sal Jones on 02-21-2023 CRP [Mass/Vol] 46.10 mg/L 0.0-3.0 [facility] Comment on above: C-Reactive Protein ( [...] ramus intermedius, PA: pulmonary artery FINDINGS: CARDIAC (Animal Cruelty Investigator read) NON-CORONARY HEART: Not enlarged. PERICARDIUM: Contour [...] to distal LAD ends abruptly, I doubt PLATE INSPECTOR acute given the lack of calcium, possibly [...] of the report is signed by Richar Ptaricio on 05/17/2021 2:28 PM. Cardiac: 1. No coronary disease in proximal coronaries (LM, Prox LAD, Prox LCx, Prox RCA). 2. Mild Mid-LAD disease just distal to first diagonal. Tortuous. The mid to distal LAD ends abruptly, does not appear to be a PLATE INSPECTOR (no calcium), could be type I LAD. [...] OR functional (more content not included)... Normal [facility] ([place] PSAon 05-06-2021 Prostate Specific Antigen 2.49 ng/mL Normal 0.00-4.00 [facility] ([place] Comment on above: Performed By: #### P #### [place] [address] .GFRon 03-18-2021 GFR Non- 67 ml/min/1.73sqm Normal [facility] ([place] Comment on above: Result Comment: GFR Population [...] meters Performed By: #### P BNP #### [address] [address] #### BMP, GFR #### [address] [address] GFR 81 ml/min/1.73sqm Normal [facility] ([place] Comment on above: Result Comment: GFR Population [...] meters Performed By: #### P BNP #### [address] [address] #### BMP, GFR #### [address] [address] BMPon 03-18-2021 BUN/Creatinine Ratio 11 ratio Normal 7- [facility] ([place]) Comment on above: Performed By: #### P BNP #### [address] [address] #### BMP, GFR #### [address] [address] Calcium [Mass/Vol] 9.0 mg/dL Normal 8.4-10.2 [facility] ([place]) Comment on above: Performed By: #### P BNP #### [place] [id number] #### BMP, GFR #### [address] [address] Chloride [Moles/Vol] 104 mmol/L Normal 98-107 [facility] ([place] Comment on above: Performed By: #### P BNP #### [place] [id number] #### BMP, GFR #### [address] [address] CO2 [Moles/Vol] 26 mmol/L Normal 22-29 [facility] ([place] Comment on above: Performed By: #### P BNP #### [place] [id number] #### BMP, GFR #### [address] [address] Creatinine [Mass/Vol] 1.15 mg/dL Normal 0.70-1.30 [facility] ([place] Comment on above: Performed By: #### P BNP #### [address] [address] #### BMP, GFR #### [address] [address] Electrolyte Balance 11.0 mEq/L Normal [facility] ([place]) Comment on above: Performed By: #### P BNP #### [address] [address] #### BMP, GFR #### [address] [address] Glucose [Mass/Vol] 89 mg/dL Normal 70-105 [facility] ([place] Comment on above: Performed By: #### P BNP #### [address] [address] #### BMP, GFR #### [address] [address] Potassium [Moles/Vol] 4.0 mmol/L Normal 3.5-5.1 [facility] ([place] Comment on above: Performed By: #### P BNP #### [place] [address] #### BMP, GFR #### [address] [address] Sodium [Moles/Vol] 141 mmol/L Normal 136-145 [facility] ([place] Comment on above: Performed By: #### P BNP #### [address] [address] #### BMP, GFR #### [place] [address] Urea nitrogen [Mass/Vol] 13 mg/dL Normal 7-18 [facility] ([place] Comment on above: Performed By: #### P BNP #### [address] [address] #### BMP, GFR #### [address] [address] PBNPon 03-18-2021 Natriuretic peptide B (Bld) [Mass/Vol] 176 pg/mL High 0-125 [facility] ([place] Comment on above: Result Comment: NT-p roBNP results of less than 300 pg/mL effectively rules out acute congestive heart failure with 99% negative predictive value. Performed By: #### P BNP #### [place] [address] #### BMP, GFR #### [address] [address] [place] MYOCARDIAL SPECT STRESS/R ESTon 02-11-2021 NM [...] Date: 02/11/2021 10:56:41 AM Ordering Provider:Hector Shea [facility] ([place]) .Auto Diffon 02-03-2021 Basophil, Absolute 0.10 10 3/mcL Normal 0.00-0.19 [facility] ([place] Comment on above: Performed By: #### P BNP #### [address] [address] #### BMP, GFR #### [address] [address] Basophils/100 WBC (Bld) 0.9 % Normal 0.0-2.5 A [facility] ([place]) Comment on above: Performed By: #### P BNP #### [address] [address] #### BMP, GFR #### [address] [address] Eosinophil, Absolute 0.30 10 3/mcL Normal 0.00-0.40 A [facility] ([place] Comment on above: Performed By: #### P BNP #### [place] [address] #### BMP, GFR #### [address] [address] Eosinophils/100 WBC (Bld) 2.1 % Normal 0.0-7.0 [facility] ([place] Comment on above: Performed By: #### P BNP #### [place] [address] #### BMP, GFR #### [address] [address] Lymphocyte, Absolute 1.80 10 3/mcL Normal 0.77-3.85 A [facility] ([place] Comment on above: Performed By: #### P BNP #### [place] [address] #### BMP, GFR #### [address] [address] Lymphocytes/100 WBC (Bld) 12.6 % Normal 10.0-50.0 [facility] ([place] Comment on above: Performed By: #### P BNP #### [place] [address] #### BMP, GFR #### [address] [address] Monocyte, Absolute 1.20 10 3/mcL High 0.15-1.00 [facility] ([place] Comment on above: Performed By: #### P BNP #### [place] [address] #### BMP, GFR #### [address] [address] Monocytes/100 WBC (Bld) 8.2 % Normal 1.7-13.0 A [facility] ([place] Comment on above: Performed By: #### P BNP #### [place] [address] #### BMP, GFR #### [address] [address] Neutrophils/100 WBC (Bld) 76.2 % Normal 37.0-80.0 [facility] ([place] Comment on above: Performed By: #### P BNP #### [place] [address] [place], [place] [address] #### BMP, GFR #### [address] [address] .GFRon 02-03-2021 GFR Non- 77 ml/min/1.73sqm Normal [facility] ([place] Comment on above: Result Comment: GFR Population [...] meters Performed By: #### P BNP #### [place] [address] [place], [place] [address] #### BMP, GFR #### [address] [address] GFR 93 ml/min/1.73sqm Normal [facility] ([place] Comment on above: Result Comment: GFR Population [...] meters Performed By: #### P BNP #### [place] [address] #### BMP, GFR #### [address] [address] .NEUABSon 02-03-2021 Neutrophil, Absolute 11.00 10 3/mcL High 2.85-6.16 [facility] ([place] Comment on above: Performed By: #### P BNP #### [place] [address] #### BMP, GFR #### [place] [address] CBCon 02-03-2021 Erythrocyte distribution width (RBC) [Ratio] 16.6 % High 11.5-14.5 [facility] ([place] Comment on above: Performed By: #### P BNP #### [place] [address] #### BMP, GFR #### [place] [address] Hematocrit (Bld) [Volume fraction] 41.3 % Low 42.0-52.0 [facility] ([place] Comment on above: Performed By: #### P BNP #### [place] [address] #### BMP, GFR #### [place] [address] Hgb 13.6 G/dL Low 14.0-18.0 [facility] ([place] Comment on above: Performed By: #### P BNP #### [place] [address] #### BMP, GFR #### [place] [address] MCH (RBC) [Entitic mass] 28.1 pg Normal 27.0-31.2 [facility] ([place] Comment on above: Performed By: #### P BNP #### [place] [id number] #### BMP, GFR #### [place] [address] MCHC 32.9 G/dL Normal 31.8-35.4 [facility] ([place] Comment on above: Performed By: #### P BNP #### [place] [address] #### BMP, GFR #### [place] [address] MCV (RBC) [Entitic vol] 85.5 fL Normal 80.0-94.0 A [facility] ([place] Comment on above: Performed By: #### P BNP #### [place] [address] #### BMP, GFR #### [place] [address] Platelet 499 10 3/mcL High 130-400 [facility] ([place] Comment on above: Performed By: #### P BNP #### [place] [address] #### BMP, GFR #### [place] [address] Platelet mean volume (Bld) [Entitic vol] 7.6 fL Normal 7.4-10.4 [facility] ([place] Comment on above: Performed By: #### P BNP #### [place] [address] #### BMP, GFR #### [place] [address] RBC 4.83 10 6/mcL Normal 4.04-6.13 [facility] ([place] Comment on above: Performed By: #### P BNP #### [place] [address] #### BMP, GFR #### [place] [address] WBC 14.50 10 3/mcL High 4.60-10.80 [facility] ([place] Comment on above: Performed By: #### P BNP #### [address] [address] #### BMP, GFR #### [address] [address] CMPon 02-03-2021 Albumin Level 3.3 G/dL Low 3.5-5.0 [facility] ([place] Comment on above: Performed By: #### P BNP #### [place] [id number] #### BMP, GFR #### [address] [address] Albumin/Globulin [Mass ratio] 0.8 {ratio} Low 1.1-2.5 [facility] ([place] Comment on above: Performed By: #### P BNP #### [place] [id number] #### BMP, GFR #### [address] [address] ALP [Catalytic activity/Vol] 144 U/L High 40-135 [facility] ([place] Comment on above: Performed By: #### P BNP #### [address] [address] #### BMP, GFR #### [address] [address] ALT [Catalytic activity/Vol] 42 U/L Normal 16-63 [facility] ([place] Comment on above: Performed By: #### P BNP #### [place] [id number] #### BMP, GFR #### [address] [address] AST [Catalytic activity/Vol] 24 U/L Normal 10-40 [facility] ([place] Comment on above: Performed By: #### P BNP #### [place] [id number] #### BMP, GFR #### [address] [address] Bili Total 0.5 mg/dL Normal 0.2-1.0 [facility] ([place] Comment on above: Result Comment: Use of this assay is not recommended for patients undergoing treatment with eltrombopag due to the potential for falsely elevated results. Performed By: #### P BNP #### [address] [address] #### BMP, GFR #### [address] [address] BUN/Creatinine Ratio 14 ratio Normal 7-27 [facility] ([place] Comment on above: Performed By: #### P BNP #### [address] [address] #### BMP, GFR #### [address] [address] Calcium [Mass/Vol] 8.9 mg/dL Normal 8.4-10.2 [facility] ([place] Comment on above: Performed By: #### P BNP #### [address] [address] #### BMP, GFR #### [address] [address] Chloride [Moles/Vol] 104 mmol/L Normal 98-107 [facility] ([place] Comment on above: Performed By: #### P BNP #### [address] [address] #### BMP, GFR #### [address] [address] CO2 [Moles/Vol] 26 mmol/L Normal 22-29 [facility] ([place] Comment on above: Performed By: #### P BNP #### [address] [address] #### BMP, GFR #### [address] [address] Creatinine [Mass/Vol] 1.02 mg/dL Normal 0.70-1.30 [facility] ([place] Comment on above: Performed By: #### P BNP #### [address] [address] #### BMP, GFR #### [address] [address] Electrolyte Balance 11.0 mEq/L Normal [facility] ([place] Comment on above: Performed By: #### P BNP #### [address] [address] #### BMP, GFR #### [address] [address] Globulin 4.3 G/dL Normal [facility] ([place] Comment on above: Performed By: #### P BNP #### [address] [address] #### BMP, GFR #### [address] [address] Glucose [Mass/Vol] 92 mg/dL Normal 70-105 [facility] ([place] Comment on above: Performed By: #### P BNP #### [address] [address] #### BMP, GFR #### [address] [address] Potassium [Moles/Vol] 4.3 mmol/L Normal 3.5-5.1 [facility] ([place] Comment on above: Performed By: #### P BNP #### [address] [address] #### BMP, GFR #### [address] [address] Sodium [Moles/Vol] 141 mmol/L Normal 136-145 [facility] ([place] Comment on above: Performed By: #### P BNP #### [address] [address] #### BMP, GFR #### [address] [address] Total Protein 7.6 G/dL Normal 6.4-8.2 [facility] ([place] Comment on above: Performed By: #### P BNP #### [address] [address] #### BMP, GFR #### [place] [id number] Urea nitrogen [Mass/Vol] 14 mg/dL Normal 7-18 [facility] ([place] Comment on above: Performed By: #### P BNP #### [address] [address] #### BMP, GFR #### [address] [address] LIPIDon 02-03-2021 Cholesterol [Mass/Vol] 173 mg/dL Normal 0-200 [facility] ([place]) Comment on above: Result Comment: Chol esterol Reference Interval: Less than 200 Desirable 200-239 Borderline high risk 240 and above High risk Performed By: #### P BNP #### [address] [address] #### BMP, GFR #### [address] [address] Cholesterol in HDL [Mass/Vol] 65 mg/dL High 40-60 [facility] ([place] Comment on above: Performed By: #### P BNP #### [address] [address] #### BMP, GFR #### [address] [address] Cholesterol in LDL [Mass/Vol] 90 mg/dL Normal 0-130 [facility] ([place] Comment on above: Performed By: #### P BNP #### [address] [address] #### BMP, GFR #### [address] [address] Triglyceride [Mass/Vol] 92 mg/dL Normal 0-150 A [facility] ([place] Comment on above: Result Comment: Trig lyceride Reference Interval: Less than 150 Normal 150-199 Borderline high risk 200-499 High risk 500 or higher Very high risk Performed By: #### P BNP #### [address] [address] #### BMP, GFR #### [address] [address] PBNPon 02-03-2021 Natriuretic peptide B (Bld) [Mass/Vol] 561 pg/mL High 0-125 [facility] ([place] Comment on above: Result Comment: NT-p roBNP results of less than 300 pg/mL effectively rules out acute congestive heart failure with 99% negative predictive value. Performed By: #### C MP, GFR, TSH, LIPID #### [place] [address] #### CBC, ANEU, PBNP, ADIFF #### [address] [address] TSHon 02-03-2021 TSH Qn 1.83 m[IU]/L Normal 0.36-3.74 [facility] ([place] Comment on above: Performed By: #### P BNP #### [place] [address] #### BMP, GFR #### [place] [address] CT ANGIOGRAPHY CHEST W/CONTR Benedict 01-22-2021 CT [...] are mediastinal enlarged lymph nodes, with a territory representative pretracheal lymph node measuring 15 mm, [...] Date: 01/21/2021 10:57:46 PM Ordering Provider:Sylvie Shea [facility] ([place]) .Auto Diffon 01-21-2021 Basophil, Absolute 0.00 10 3/mcL Normal 0.00-0.19 [facility] ([place] Comment on above: Performed By: #### A GINA, CBC, BMP, ADIFF #### [place] [address] #### GFR #### [address] [address] Basophils/100 WBC (Bld) 0.3 % Normal 0.0-2.5 A [facility] ([place] Comment on above: Performed By: #### A GINA, CBC, BMP, ADIFF #### [place] [address] #### GFR #### [address] [address] Eosinophil, Absolute 0.20 10 3/mcL Normal 0.00-0.40 A [facility] ([place] Comment on above: Performed By: #### A GINA, CBC, BMP, ADIFF #### [place] [address] #### GFR #### [address] [address] Eosinophils/100 WBC (Bld) 1.2 % Normal 0.0-7.0 [facility] ([place] Comment on above: Performed By: #### A GINA, CBC, BMP, ADIFF #### [address] [address] #### GFR #### [address] [address] Lymphocyte, Absolute 1.30 10 3/mcL Normal 0.77-3.85 A [facility] ([place] Comment on above: Performed By: #### A GINA, CBC, BMP, ADIFF #### [address] [address] #### GFR #### [address] [address] Lymphocytes/100 WBC (Bld) 8.9 % Low 10.0-50.0 [facility] ([place] Comment on above: Performed By: #### A GINA, CBC, BMP, ADIFF #### [address] [address] #### GFR #### [address] [address] Monocyte, Absolute 1.70 10 3/mcL High 0.15-1.00 [facility] ([place] Comment on above: Performed By: #### A GINA, CBC, BMP, ADIFF #### [address] [address] #### GFR #### [address] [address] Monocytes/100 WBC (Bld) 11.1 % Normal 1.7-13.0 A [facility] ([place] Comment on above: Performed By: #### A GINA, CBC, BMP, ADIFF #### [address] [address] #### GFR #### [address] [address] Neutrophils/100 WBC (Bld) 78.5 % Normal 37.0-80.0 [facility] ([place] Comment on above: Performed By: #### A GINA, CBC, BMP, ADIFF #### [address] [address] #### GFR #### [address] [address] .GFRon 01-21-2021 GFR Non- 59 ml/min/1.73sqm Normal [facility] ([place] Comment on above: Result Comment: GFR Population [...] #### A GINA, CBC, BMP, ADIFF #### [address] [address] #### GFR #### [address] [address] GFR 72 ml/min/1.73sqm Normal [facility] ([place] Comment on above: Result Comment: GFR Population [...] #### A GINA, CBC, BMP, ADIFF #### [address] [address] #### GFR #### [address] [address] .NEUABSon 01-21-2021 Neutrophil, Absolute 11.60 10 3/mcL High 2.85-6.16 [facility] ([place] Comment on above: Performed By: #### A GINA, CBC, BMP, ADIFF #### [address] [address] #### GFR #### [address] [address] BMPon 01-21-2021 BUN/Creatinine Ratio 11 ratio Normal 7-27 [facility] ([place] Comment on above: Performed By: #### A GINA, CBC, BMP, ADIFF #### [address] [address] #### GFR #### [address] [address] Calcium [Mass/Vol] 7.8 mg/dL Low 8.4-10.2 [facility] ([place]) Comment on above: Performed By: #### A GINA, CBC, BMP, ADIFF #### [address] [address] #### GFR #### [address] [address] Chloride [Moles/Vol] 99 mmol/L Normal 98-107 [facility] ([place]) Comment on above: Performed By: #### A GINA, CBC, BMP, ADIFF #### [address] [address] #### GFR #### [address] [address] CO2 [Moles/Vol] 26 mmol/L Normal 22-29 [facility] ([place] Comment on above: Performed By: #### A GINA, CBC, BMP, ADIFF #### [address] [address] #### GFR #### [address] [address] Creatinine [Mass/Vol] 1.28 mg/dL Normal 0.70-1.30 [facility] ([place] Comment on above: Performed By: #### A GINA, CBC, BMP, ADIFF #### [address] [address] #### GFR #### [address] [address] Electrolyte Balance 11.0 mEq/L Normal [facility] ([place]) Comment on above: Performed By: #### A GINA, CBC, BMP, ADIFF #### [address] [address] #### GFR #### [address] [address] Glucose [Mass/Vol] 105 mg/dL Normal 70-105 [facility] ([place]) Comment on above: Performed By: #### A GINA, CBC, BMP, ADIFF #### [address] [address] #### GFR #### [address] [address] Potassium [Moles/Vol] 4.2 mmol/L Normal 3.5-5.1 [facility] ([place] Comment on above: Performed By: #### A GINA, CBC, BMP, ADIFF #### [address] [address] #### GFR #### [address] [address] Sodium [Moles/Vol] 136 mmol/L Normal 136-145 [facility] ([place] Comment on above: Performed By: #### A GINA, CBC, BMP, ADIFF #### [address] [address] #### GFR #### [address] [address] Urea nitrogen [Mass/Vol] 14 mg/dL Normal 7-18 [facility] ([place] Comment on above: Performed By: #### A GINA, CBC, BMP, ADIFF #### [address] [address] #### GFR #### [address] [address] CBCon 01-21-2021 Erythrocyte distribution width (RBC) [Ratio] 16.5 % High 11.5-14.5 [facility] ([place] Comment on above: Performed By: #### A GINA, CBC, BMP, ADIFF #### [address] [address] #### GFR #### [place] [address] Hematocrit (Bld) [Volume fraction] 38.3 % Low 42.0-52.0 [facility] ([place] Comment on above: Performed By: #### A GINA, CBC, BMP, ADIFF #### [address] [address] #### GFR #### [place] [address] Hgb 12.6 G/dL Low 14.0-18.0 [facility] ([place] Comment on above: Performed By: #### A GINA, CBC, BMP, ADIFF #### [address] [address] #### GFR #### [place] [address] MCH (RBC) [Entitic mass] 28.0 pg Normal 27.0-31.2 [facility] ([place] Comment on above: Performed By: #### A GINA, CBC, BMP, ADIFF #### [place] [address] #### GFR #### [place] [address] MCHC 32.8 G/dL Normal 31.8-35.4 [facility] ([place] Comment on above: Performed By: #### A GINA, CBC, BMP, ADIFF #### [place] [address] #### GFR #### [place] [address] MCV (RBC) [Entitic vol] 85.3 fL Normal 80.0-94.0 A [facility] ([place] Comment on above: Performed By: #### A GINA, CBC, BMP, ADIFF #### [place] [address] #### GFR #### [address] [address] Platelet 356 10 3/mcL Normal 130-400 [facility] ([place] Comment on above: Performed By: #### A GINA, CBC, BMP, ADIFF #### [place] [address] #### GFR #### [address] [address] Platelet mean volume (Bld) [Entitic vol] 7.7 fL Normal 7.4-10.4 [facility] ([place] Comment on above: Performed By: #### A GINA, CBC, BMP, ADIFF #### [place] [address] #### GFR #### [place] [address] RBC 4.49 10 6/mcL Normal 4.04-6.13 [facility] ([place] Comment on above: Performed By: #### A GINA, CBC, BMP, ADIFF #### [place] [address] #### GFR #### [place] [address] WBC 14.80 10 3/mcL High 4.60-10.80 [facility] ([place] Comment on above: Performed By: #### A GINA, CBC, BMP, ADIFF #### [place] [address] #### GFR #### [place] [address] XR CHEST 2 VIEWSon XR CHEST 2 [...] Date: 01/21/2021 3:34:02 PM Ordering Provider:Richar Shea [facility] ([place]) .Auto Diffon 01-11-2021 Basophil, Absolute 0.00 10 3/mcL Normal 0.00-0.19 [facility] ([place] Comment on above: Performed By: #### P BNP #### [place] [address] #### BMP, GFR #### [address] [address] Basophils/100 WBC (Bld) 0.0 % Normal 0.0-2.5 A [facility] ([place] Comment on above: Performed By: #### P BNP #### [place] [address] #### BMP, GFR #### [address] [address] Eosinophil, Absolute 0.00 10 3/mcL Normal 0.00-0.40 A [facility] ([place]) Comment on above: Performed By: #### P BNP #### [place] [address] #### BMP, GFR #### [address] [address] Eosinophils/100 WBC (Bld) 0.1 % Normal 0.0-7.0 [facility] ([place] Comment on above: Performed By: #### P BNP #### [place] [address] #### BMP, GFR #### [address] [address] Lymphocyte, Absolute 1.60 10 3/mcL Normal 0.77-3.85 A [facility] ([place] Comment on above: Performed By: #### P BNP #### [place] [id number] #### BMP, GFR #### [address] [address] Lymphocytes/100 WBC (Bld) 11.5 % Normal 10.0-50.0 [facility] ([place] Comment on above: Performed By: #### P BNP #### [place] [address] #### BMP, GFR #### [address] [address] Monocyte, Absolute 0.70 10 3/mcL Normal 0.15-1.00 [facility] ([place]) Comment on above: Performed By: #### P BNP #### [place] [address] #### BMP, GFR #### [address] [address] Monocytes/100 WBC (Bld) 4.9 % Normal 1.7-13.0 A [facility] ([place]) Comment on above: Performed By: #### P BNP #### [place] [address] #### BMP, GFR #### [address] [address] Neutrophils/100 WBC (Bld) 83.5 % High 37.0-80.0 [facility] ([place] Comment on above: Performed By: #### P BNP #### [place] [address] #### BMP, GFR #### [address] [address] .NEUABSon 01-11-2021 Neutrophil, Absolute 11.90 10 3/mcL High 2.85-6.16 [facility] ([place] Comment on above: Performed By: #### P BNP #### [place] [address] #### BMP, GFR #### [address] [address] CBCon 04-06-2021 Erythrocyte distribution width (RBC) [Ratio] 17.6 % High 11.5-14.5 [facility] ([place] Comment on above: Performed By: #### P BNP #### [place] [address] #### BMP, GFR #### [place] [address] Hematocrit (Bld) [Volume fraction] 42.2 % Normal 42.0-52.0 [facility] ([place] Comment on above: Performed By: #### P BNP #### [place] [address] #### BMP, GFR #### [place] [address] Hgb 14.1 G/dL Normal 14.0-18.0 [facility] ([place] Comment on above: Performed By: #### P BNP #### [place] [address] #### BMP, GFR #### [place] [address] MCH (RBC) [Entitic mass] 28.3 pg Normal 27.0-31.2 [facility] ([place] Comment on above: Performed By: #### P BNP #### [place] [address] #### BMP, GFR #### [place] [address] MCHC 33.4 G/dL Normal 31.8-35.4 [facility] ([place] Comment on above: Performed By: #### P BNP #### [place] [address] #### BMP, GFR #### [place] [address] MCV (RBC) [Entitic vol] 84.8 fL Normal 80.0-94.0 A [facility] ([place]) Comment on above: Performed By: #### P BNP #### [place] [address] #### BMP, GFR #### [place] [address] Platelet 326 10 3/mcL Normal 130-400 [facility] ([place] Comment on above: Performed By: #### P BNP #### [place] [id number] #### BMP, GFR #### [place] [address] Platelet mean volume (Bld) [Entitic vol] 8.4 fL Normal 7.4-10.4 [facility] ([place] Comment on above: Performed By: #### P BNP #### [place] [address] #### BMP, GFR #### [place] [address] RBC 4.98 10 6/mcL Normal 4.04-6.13 [facility] ([place] Comment on above: Performed By: #### P BNP #### [place] [address] #### BMP, GFR #### [place] [address] WBC 14.30 10 3/mcL High 4.60-10.80 [facility] ([place] Comment on above: Performed By: #### P BNP #### [address] [address] #### BMP, GFR #### [place] [address] CRPon 01-11-2021 C-Reactive Protein 1.4 mg/dL High 0.0-0.9 [facility] ([place]) Comment on above: Performed By: #### P BNP #### [place] [address] #### BMP, GFR #### [place] [address] DIMERon 01-11-2021 D-Dimer 381 ng/mL D-DU High 0-230 [facility] ([place]) Comment on above: Result Comment: The result [...] (PE). Performed By: #### P BNP #### [place] [address] #### BMP, GFR #### [place] [address] Melva 01-11-2021 Ferritin [Mass/Vol] 138.6 ng/mL Normal 26.0-388.0 [facility] ([place] Comment on above: Performed By: #### P BNP #### [place] [address] #### BMP, GFR #### [place] [address] FIBon 01-11-2021 Fibrinogen 526 mg/dL Normal 292-711 [facility] ([place]) Comment on above: Performed By: #### P BNP #### [place] [id number] #### BMP, GFR #### [place] [address] LDHon 01-11-2021 LDH 370 U/L High 85-227 [facility] ([place] Comment on above: Performed By: #### P BNP #### [place] [address] #### BMP, GFR #### [place] [address] MGon 01-11-2021 Magnesium [Mass/Vol] 1.5 mg/dL Low 1.8-2.4 [facility] ([place] Comment on above: Performed By: #### P BNP #### [address] [address] #### BMP, GFR #### [place] [address] PROon 01-11-2021 INR Coag (PPP) [Relative time] 0.9 {INR} Normal 0.9-1.2 [facility] ([place] Comment on above: Result Comment: Yohannes dard Dose 2.0 - 3.0 High Dose 2.5 - 3.5 The recommended therapeutic range for oral anticoagulant therapy is: LOW RISK: Prophylaxis of venous thrombosis INR: 2.0 - 3.0 Treatment of pulmonary embolism 2.0 - 3.0 Prevention of systemic embolism 2.0 - 3.0 HIGH RISK: Mechanical prosthetic valves 2.5 - 3.5 Performed By: #### P BNP #### [place] [address] #### BMP, GFR #### [place] [address] PT Coag (PPP) [Time] 11.2 s Normal 9.7-14.7 [facility] ([place]) Comment on above: Performed By: #### P BNP #### [place] [address] #### BMP, GFR #### [place] [address] TROPHSon 01-11-2021 Troponin I High Sensitivity 12.1 ng/L Normal 0.0-76.2 [facility] ([place] Comment on above: Performed By: #### P BNP #### [place] [address] #### BMP, GFR #### [place] [address] .GFRon 01-10-2021 GFR 86 ml/min/1.73sqm Normal [facility] ([place] Comment on above: Result Comment: GFR Population [...] #### A GINA, CBC, BMP, ADIFF #### [address] [address] #### GFR #### [address] [address] GFR Non- 71 ml/min/1.73sqm Normal [facility] ([place] Comment on above: Result Comment: GFR Population [...] #### A GINA, CBC, BMP, ADIFF #### [address] [address] #### GFR #### [address] [address] .Manual Diffon 01-10-2021 Bands 5.0 % Normal 0.0-5.0 [facility] ([place] Comment on above: Performed By: #### A GINA, CBC, BMP, ADIFF #### [address] [address] #### GFR #### [address] [address] Basophil %, Manual 0.0 % Normal 0.0-2.5 [facility] ([place]) Comment on above: Performed By: #### A GINA, CBC, BMP, ADIFF #### [place] [address] #### GFR #### [address] [address] Basophil, Abs Manual 0.00 10 3/mcL Normal 0.00-0.19 A [facility] ([place] Comment on above: Performed By: #### A GIAN, CBC, BMP, ADIFF #### [place] [address] #### GFR #### [place] [address] Eosinophil %, Manual 0.0 % Normal 0.0-7.0 [facility] ([place] Comment on above: Performed By: #### A GINA, CBC, BMP, ADIFF #### [place] [address] #### GFR #### [place] [address] Eosinophil, Abs Manual 0.00 10 3/mcL Normal 0.00-0.40 [facility] ([place] Comment on above: Performed By: #### A GINA, CBC, BMP, ADIFF #### [place] [address] #### GFR #### [place] [address] Lymphocyte %, Manual 12.0 % Normal 10.0-50.0 [facility] ([place] Comment on above: Performed By: #### A GINA, CBC, BMP, ADIFF #### [place] [address] #### GFR #### [place] [id number] Lymphocyte, Abs Manual 1.70 10 3/mcL Normal 0.77-3.85 [facility] ([place] Comment on above: Performed By: #### A GINA, CBC, BMP, ADIFF #### [place] [id number] #### GFR #### [address] [address] Metamyelocyte 2.0 % Normal [facility] ([place] Comment on above: Performed By: #### A GINA, CBC, BMP, ADIFF #### [address] [address] #### GFR #### [address] [address] Monocyte %, Manual 7.0 % Normal 1.7-13.0 [facility] ([place] Comment on above: Performed By: #### A GINA, CBC, BMP, ADIFF #### [place] [address] #### GFR #### [address] [address] Monocyte, Abs Manual 1.00 10 3/mcL Normal 0.15-1.00 A [facility] ([place] Comment on above: Performed By: #### A GINA, CBC, BMP, ADIFF #### [place] [address] #### GFR #### [address] [address] Neutrophil %, Manual 74.0 % Normal 37.0-80.0 [facility] ([place] Comment on above: Performed By: #### A GINA, CBC, BMP, ADIFF #### [place] [address] #### GFR #### [address] [address] Neutrophil, Abs Manual 12.10 10 3/mcL High 2.85-6.16 [facility] ([place] Comment on above: Performed By: #### A GINA, CBC, BMP, ADIFF #### [place] [address] #### GFR #### [address] [address] .Morphon 01-10-2021 Anisocytosis Ql (Bld) Slight Normal [facility] ([place] Comment on above: Performed By: #### A GINA, CBC, BMP, ADIFF #### [address] [address] #### GFR #### [address] [address] Ovalocytes Few Normal [facility] ([place] Comment on above: Performed By: #### A GINA, CBC, BMP, ADIFF #### [address] [address] #### GFR #### [address] [address] Platelet Estimate Normal [facility] ([place] Comment on above: Performed By: #### A GINA, CBC, BMP, ADIFF #### [address] [address] #### GFR #### [address] [address] Toxic Gran Slight Normal [facility] ([place] Comment on above: Performed By: #### A GINA, CBC, BMP, ADIFF #### [address] [address] #### GFR #### [address] [address] BMPon 01-10-2021 BUN/Creatinine Ratio 22 ratio Normal 7-27 [facility] ([place] Comment on above: Performed By: #### A GINA, CBC, BMP, ADIFF #### [address] [address] #### GFR #### [address] [address] Calcium [Mass/Vol] 8.7 mg/dL Normal 8.4-10.2 [facility] ([place] Comment on above: Performed By: #### A GINA, CBC, BMP, ADIFF #### [address] [address] #### GFR #### [address] [address] Chloride [Moles/Vol] 105 mmol/L Normal 98-107 [facility] ([place] Comment on above: Performed By: #### A GINA, CBC, BMP, ADIFF #### [address] [address] #### GFR #### [address] [address] CO2 [Moles/Vol] 27 mmol/L Normal 22-29 [facility] ([place] Comment on above: Performed By: #### A GINA, CBC, BMP, ADIFF #### [address] [address] #### GFR #### [address] [address] Creatinine [Mass/Vol] 1.10 mg/dL Normal 0.70-1.30 [facility] ([place] Comment on above: Performed By: #### A GINA, CBC, BMP, ADIFF #### [address] [address] #### GFR #### [address] [address] Electrolyte Balance 10.0 mEq/L Normal [facility] ([place] Comment on above: Performed By: #### A GINA, CBC, BMP, ADIFF #### [address] [address] #### GFR #### [address] [address] Glucose [Mass/Vol] 116 mg/dL High 70-105 [facility] ([place] Comment on above: Performed By: #### A GINA, CBC, BMP, ADIFF #### [address] [address] #### GFR #### [address] [address] Potassium [Moles/Vol] 4.3 mmol/L Normal 3.5-5.1 [facility] ([place] Comment on above: Performed By: #### A GINA, CBC, BMP, ADIFF #### [address] [address] #### GFR #### [address] [address] Sodium [Moles/Vol] 142 mmol/L Normal 136-145 [facility] ([place] Comment on above: Performed By: #### A GINA, CBC, BMP, ADIFF #### [address] [address] #### GFR #### [address] [address] Urea nitrogen [Mass/Vol] 24 mg/dL High 7-18 [facility] ([place] Comment on above: Performed By: #### A GINA, CBC, BMP, ADIFF #### [address] [address] #### GFR #### [place] [address] CBCon 01-10-2021 Erythrocyte distribution width (RBC) [Ratio] 17.3 % High 11.5-14.5 [facility] ([place] Comment on above: Performed By: #### A GINA, CBC, BMP, ADIFF #### [address] [address] #### GFR #### [address] [address] Hematocrit (Bld) [Volume fraction] 42.1 % Normal 42.0-52.0 [facility] ([place] Comment on above: Performed By: #### A GINA, CBC, BMP, ADIFF #### [address] [address] #### GFR #### [address] [address] Hgb 14.0 G/dL Normal 14.0-18.0 [facility] ([place] Comment on above: Performed By: #### A GINA, CBC, BMP, ADIFF #### [address] [address] #### GFR #### [address] [address] MCH (RBC) [Entitic mass] 28.0 pg Normal 27.0-31.2 [facility] ([place] Comment on above: Performed By: #### A GINA, CBC, BMP, ADIFF #### [place] [address] #### GFR #### [address] [address] MCHC 33.2 G/dL Normal 31.8-35.4 [facility] ([place] Comment on above: Performed By: #### A GINA, CBC, BMP, ADIFF #### [place] [address] #### GFR #### [place] [address] MCV (RBC) [Entitic vol] 84.4 fL Normal 80.0-94.0 A [facility] ([place] Comment on above: Performed By: #### A GINA, CBC, BMP, ADIFF #### [place] [address] #### GFR #### [place] [address] Platelet 259 10 3/mcL Normal 130-400 [facility] ([place] Comment on above: Performed By: #### A GINA, CBC, BMP, ADIFF #### [place] [address] #### GFR #### [place] [address] Platelet mean volume (Bld) [Entitic vol] 8.5 fL Normal 7.4-10.4 [facility] ([place] Comment on above: Performed By: #### A GINA, CBC, BMP, ADIFF #### [place] [address] #### GFR #### [place] [address] RBC 4.98 10 6/mcL Normal 4.04-6.13 [facility] ([place] Comment on above: Performed By: #### A GINA, CBC, BMP, ADIFF #### [place] [address] #### GFR #### [place] [address] WBC 14.90 10 3/mcL High 4.60-10.80 [facility] ([place] Comment on above: Performed By: #### A GINA, CBC, BMP, ADIFF #### [address] [address] #### GFR #### [place] [address] CRPon 01-10-2021 C-Reactive Protein 2.0 mg/dL High 0.0-0.9 [facility] ([place] Comment on above: Performed By: #### A GINA, CBC, BMP, ADIFF #### [place] [address] #### GFR #### [place] [address] DIMERon 01-10-2021 D-Dimer 321 ng/mL D-DU High 0-230 [facility] ([place] Comment on above: Result Comment: The result [...] (PE). Performed By: #### P BNP #### [place] [address] #### BMP, GFR #### [place] [address] Melva 01-10-2021 Ferritin [Mass/Vol] 264.1 ng/mL Normal 26.0-388.0 [facility] ([place] Comment on above: Performed By: #### C MP, GFR, TSH, LIPID #### [address] [address] #### CBC, ANEU, PBNP, ADIFF #### [address] [address] FIBon 01-10-2021 Fibrinogen 554 mg/dL Normal 292-711 [facility] ([place] Comment on above: Performed By: #### A GINA, CBC, BMP, ADIFF #### [address] [address] #### GFR #### [address] [address] LDHon 01-10-2021 LDH 443 U/L High 85-227 [facility] ([place] Comment on above: Performed By: #### A GINA, CBC, BMP, ADIFF #### [address] [address] #### GFR #### [address] [address] MGon 01-10-2021 Magnesium [Mass/Vol] 1.7 mg/dL Low 1.8-2.4 [facility] ([place] Comment on above: Performed By: #### A GINA, CBC, BMP, ADIFF #### [address] [address] #### GFR #### [address] [address] PROon 01-10-2021 INR Coag (PPP) [Relative time] 0.9 {INR} Normal 0.9-1.2 [facility] ([place] Comment on above: Result Comment: Yohannes dard [...] #### A GINA, CBC, BMP, ADIFF #### [place] [address] #### GFR #### [address] [address] PT Coag (PPP) [Time] 11.3 s Normal 9.7-14.7 [facility] ([place] Comment on above: Performed By: #### A GINA, CBC, BMP, ADIFF #### [address] [address] #### GFR #### [address] [address] TROPHSon 01-10-2021 Troponin I High Sensitivity 14.5 ng/L Normal 0.0-76.2 [facility] ([place] Comment on above: Performed By: #### A GINA, CBC, BMP, ADIFF #### [place] [address] #### GFR #### [place] [address] .Auto Diffon 01-09-2021 Basophil, Absolute 0.10 10 3/mcL Normal 0.00-0.19 [facility] ([place] Comment on above: Performed By: #### A GINA, CBC, BMP, ADIFF #### [place] [address] #### GFR #### [address] [address] Basophils/100 WBC (Bld) 0.5 % Normal 0.0-2.5 A [facility] ([place] Comment on above: Performed By: #### A GINA, CBC, BMP, ADIFF #### [place] [address] #### GFR #### [address] [address] Eosinophil, Absolute 0.00 10 3/mcL Normal 0.00-0.40 A [facility] ([place] Comment on above: Performed By: #### A GINA, CBC, BMP, ADIFF #### [place] [address] #### GFR #### [address] [address] Eosinophils/100 WBC (Bld) 0.0 % Normal 0.0-7.0 [facility] ([place] Comment on above: Performed By: #### A GINA, CBC, BMP, ADIFF #### [address] [address] #### GFR #### [address] [address] Lymphocyte, Absolute 0.90 10 3/mcL Normal 0.77-3.85 A [facility] ([place]) Comment on above: Performed By: #### A GINA, CBC, BMP, ADIFF #### [address] [address] #### GFR #### [address] [address] Lymphocytes/100 WBC (Bld) 8.2 % Low 10.0-50.0 [facility] ([place] Comment on above: Performed By: #### A GINA, CBC, BMP, ADIFF #### [place] [address] #### GFR #### [address] [address] Monocyte, Absolute 1.10 10 3/mcL High 0.15-1.00 [facility] ([place] Comment on above: Performed By: #### A GINA, CBC, BMP, ADIFF #### [place] [address] #### GFR #### [address] [address] Monocytes/100 WBC (Bld) 10.9 % Normal 1.7-13.0 A [facility] ([place] Comment on above: Performed By: #### A GINA, CBC, BMP, ADIFF #### [place] [address] #### GFR #### [address] [address] Neutrophils/100 WBC (Bld) 80.4 % High 37.0-80.0 [facility] ([place] Comment on above: Performed By: #### A GINA, CBC, BMP, ADIFF #### [place] [address] [place], [place] [address] #### GFR #### [facility] [address] [place] [address] .GFRon 01-09-2021 GFR 86 ml/min/1.73sqm Normal [facility] ([place] Comment on above: Result Comment: GFR Population [...] #### A GINA, CBC, BMP, ADIFF #### [place] [address] [place], [place] [address] #### GFR #### [address] [address] GFR Non- 71 ml/min/1.73sqm Normal [facility] ([place] Comment on above: Result Comment: GFR Population [...] #### A GINA, CBC, BMP, ADIFF #### [address] [address] #### GFR #### [address] [address] .NEUABSon 01-09-2021 Neutrophil, Absolute 8.40 10 3/mcL High 2.85-6.16 A [facility] ([place] Comment on above: Performed By: #### A GINA, CBC, BMP, ADIFF #### [place] [address] #### GFR #### [address] [address] BMPon 01-09-2021 BUN/Creatinine Ratio 24 ratio Normal 7-27 [facility] ([place] Comment on above: Performed By: #### A GINA, CBC, BMP, ADIFF #### [address] [address] #### GFR #### [place] [address] Calcium [Mass/Vol] 8.3 mg/dL Low 8.4-10.2 [facility] ([place] Comment on above: Performed By: #### A GINA, CBC, BMP, ADIFF #### [address] [address] #### GFR #### [address] [address] Chloride [Moles/Vol] 102 mmol/L Normal 98-107 [facility] ([place] Comment on above: Performed By: #### A GINA, CBC, BMP, ADIFF #### [address] [address] #### GFR #### [address] [address] CO2 [Moles/Vol] 28 mmol/L Normal 22-29 [facility] ([place] Comment on above: Performed By: #### A GINA, CBC, BMP, ADIFF #### [address] [address] #### GFR #### [address] [address] Creatinine [Mass/Vol] 1.10 mg/dL Normal 0.70-1.30 [facility] ([place] Comment on above: Performed By: #### A GINA, CBC, BMP, ADIFF #### [address] [address] #### GFR #### [address] [address] Electrolyte Balance 8.0 mEq/L Normal [facility] ([place]) Comment on above: Performed By: #### A GINA, CBC, BMP, ADIFF #### [address] [address] #### GFR #### [address] [address] Glucose [Mass/Vol] 125 mg/dL High 70-105 [facility] ([place]) Comment on above: Performed By: #### A GINA, CBC, BMP, ADIFF #### [place] [address] #### GFR #### [address] [address] Potassium [Moles/Vol] 4.2 mmol/L Normal 3.5-5.1 [facility] ([place]) Comment on above: Performed By: #### A GINA, CBC, BMP, ADIFF #### [address] [address] #### GFR #### [address] [address] Sodium [Moles/Vol] 138 mmol/L Normal 136-145 [facility] ([place]) Comment on above: Performed By: #### A GINA, CBC, BMP, ADIFF #### [address] [address] #### GFR #### [address] [address] Urea nitrogen [Mass/Vol] 26 mg/dL High 7-18 [facility] ([place] Comment on above: Performed By: #### A GINA, CBC, BMP, ADIFF #### [address] [address] #### GFR #### [address] [address] CBCon 01-09-2021 Erythrocyte distribution width (RBC) [Ratio] 17.2 % High 11.5-14.5 [facility] ([place] Comment on above: Performed By: #### A GINA, CBC, BMP, ADIFF #### [place] [address] #### GFR #### [place] [address] Hematocrit (Bld) [Volume fraction] 42.5 % Normal 42.0-52.0 [facility] ([place] Comment on above: Performed By: #### A GINA, CBC, BMP, ADIFF #### [place] [address] #### GFR #### [place] [address] Hgb 14.3 G/dL Normal 14.0-18.0 [facility] ([place]) Comment on above: Performed By: #### A GINA, CBC, BMP, ADIFF #### [place] [address] #### GFR #### [place] [address] MCH (RBC) [Entitic mass] 28.2 pg Normal 27.0-31.2 [facility] ([place] Comment on above: Performed By: #### A GINA, CBC, BMP, ADIFF #### [place] [id number] #### GFR #### [place] [address] MCHC 33.5 G/dL Normal 31.8-35.4 [facility] ([place] Comment on above: Performed By: #### A GINA, CBC, BMP, ADIFF #### [place] [id number] #### GFR #### [address] [address] MCV (RBC) [Entitic vol] 84.1 fL Normal 80.0-94.0 A [facility] ([place] Comment on above: Performed By: #### A GINA, CBC, BMP, ADIFF #### [address] [address] #### GFR #### [place] [address] Platelet 265 10 3/mcL Normal 130-400 [facility] ([place]) Comment on above: Performed By: #### A GINA, CBC, BMP, ADIFF #### [address] [address] #### GFR #### [place] [address] Platelet mean volume (Bld) [Entitic vol] 9.5 fL Normal 7.4-10.4 [facility] ([place] Comment on above: Performed By: #### A GINA, CBC, BMP, ADIFF #### [place] [address] #### GFR #### [place] [address] RBC 5.06 10 6/mcL Normal 4.04-6.13 [facility] ([place] Comment on above: Performed By: #### A GINA, CBC, BMP, ADIFF #### [place] [address] #### GFR #### [place] [address] WBC 10.50 10 3/mcL Normal 4.60-10.80 [facility] ([place] Comment on above: Performed By: #### A GINA, CBC, BMP, ADIFF #### [place] [address] #### GFR #### [place] [address] CRPon 01-09-2021 C-Reactive Protein 3.3 mg/dL High 0.0-0.9 [facility] ([place] Comment on above: Performed By: #### C MP, GFR, TSH, LIPID #### [address] [address] #### CBC, ANEU, PBNP, ADIFF #### [address] [address] DIMERon 01-09-2021 D-Dimer 311 ng/mL D-DU High 0-230 [facility] ([place] Comment on above: Result Comment: The result [...] #### A GINA, CBC, BMP, ADIFF #### [address] [address] #### GFR #### [address] [address] FIBon 01-09-2021 Fibrinogen 610 mg/dL Normal 292-711 [facility] ([place] Comment on above: Performed By: #### C MP, GFR, TSH, LIPID #### [address] [address] #### CBC, ANEU, PBNP, ADIFF #### [address] [address] LDHon 01-09-2021 LDH 447 U/L High 85-227 [facility] ([place]) Comment on above: Performed By: #### C MP, GFR, TSH, LIPID #### [address] [address] #### CBC, ANEU, PBNP, ADIFF #### [address] [address] MGon 01-09-2021 Magnesium [Mass/Vol] 1.9 mg/dL Normal 1.8-2.4 [facility] ([place]) Comment on above: Performed By: #### C MP, GFR, TSH, LIPID #### [place] [address] #### CBC, ANEU, PBNP, ADIFF #### [place] [address] PROon 01-09-2021 INR Coag (PPP) [Relative time] 1.0 {INR} Normal 0.9-1.2 [facility] ([place]) Comment on above: Result Comment: Yohannes dard [...] #### C MP, GFR, TSH, LIPID #### [place] [address] #### CBC, ANEU, PBNP, ADIFF #### [place] [address] PT Coag (PPP) [Time] 11.5 s Normal 9.7-14.7 [facility] ([place] Comment on above: Performed By: #### C MP, GFR, TSH, LIPID #### [place] [address] #### CBC, ANEU, PBNP, ADIFF #### [place] [address] TROPHSon 01-09-2021 Troponin I High Sensitivity 17.7 ng/L Normal 0.0-76.2 [facility] ([place] Comment on above: Performed By: #### C MP, GFR, TSH, LIPID #### [place] [address] #### CBC, ANEU, PBNP, ADIFF #### [place] [address] .Auto Diffon 01-08-2021 Basophil, Absolute 0.00 10 3/mcL Normal 0.00-0.19 [facility] ([place] Comment on above: Performed By: #### A GINA, CBC, BMP, ADIFF #### [place] [address] #### GFR #### [address] [address] Basophils/100 WBC (Bld) 0.4 % Normal 0.0-2.5 A [facility] ([place]) Comment on above: Performed By: #### A GINA, CBC, BMP, ADIFF #### [place] [address] #### GFR #### [address] [address] Eosinophil, Absolute 0.00 10 3/mcL Normal 0.00-0.40 A [facility] ([place]) Comment on above: Performed By: #### A GINA, CBC, BMP, ADIFF #### [place] [address] #### GFR #### [address] [address] Eosinophils/100 WBC (Bld) 0.0 % Normal 0.0-7.0 [facility] ([place] Comment on above: Performed By: #### A GINA, CBC, BMP, ADIFF #### [place] [address] #### GFR #### [address] [address] Lymphocyte, Absolute 0.60 10 3/mcL Low 0.77-3.85 A [facility] ([place]) Comment on above: Performed By: #### A GINA, CBC, BMP, ADIFF #### [place] [address] #### GFR #### [address] [address] Lymphocytes/100 WBC (Bld) 5.5 % Low 10.0-50.0 [facility] ([place] Comment on above: Performed By: #### A GINA, CBC, BMP, ADIFF #### [address] [address] #### GFR #### [address] [address] Monocyte, Absolute 0.80 10 3/mcL Normal 0.15-1.00 [facility] ([place] Comment on above: Performed By: #### A GINA, CBC, BMP, ADIFF #### [address] [address] #### GFR #### [address] [address] Monocytes/100 WBC (Bld) 7.6 % Normal 1.7-13.0 A [facility] ([place] Comment on above: Performed By: #### A GINA, CBC, BMP, ADIFF #### [address] [address] #### GFR #### [address] [address] Neutrophils/100 WBC (Bld) 86.5 % High 37.0-80.0 [facility] ([place] Comment on above: Performed By: #### A GINA, CBC, BMP, ADIFF #### [address] [address] #### GFR #### [address] [address] .GFRon 01-08-2021 GFR 75 ml/min/1.73sqm Normal [facility] ([place]) Comment on above: Result Comment: GFR Population [...] #### A GINA, CBC, BMP, ADIFF #### [address] [address] #### GFR #### [address] [address] GFR Non- 62 ml/min/1.73sqm Normal [facility] ([place]) Comment on above: Result Comment: GFR Population [...] #### A GINA, CBC, BMP, ADIFF #### [place] [address] #### GFR #### [address] [address] .NEUABSon 01-08-2021 Neutrophil, Absolute 8.70 10 3/mcL High 2.85-6.16 A [facility] ([place] Comment on above: Performed By: #### A GINA, CBC, BMP, ADIFF #### [address] [address] #### GFR #### [place] [address] BMPon 01-08-2021 BUN/Creatinine Ratio 25 ratio Normal 7-27 [facility] ([place]) Comment on above: Performed By: #### A GINA, CBC, BMP, ADIFF #### [place] [address] #### GFR #### [address] [address] Calcium [Mass/Vol] 8.1 mg/dL Low 8.4-10.2 [facility] ([place]) Comment on above: Performed By: #### A GINA, CBC, BMP, ADIFF #### [address] [address] #### GFR #### [address] [address] Chloride [Moles/Vol] 98 mmol/L Normal 98-107 [facility] ([place] Comment on above: Performed By: #### A GINA, CBC, BMP, ADIFF #### [address] [address] #### GFR #### [address] [address] CO2 [Moles/Vol] 28 mmol/L Normal 22-29 [facility] ([place]) Comment on above: Performed By: #### A GINA, CBC, BMP, ADIFF #### [address] [address] #### GFR #### [address] [address] Creatinine [Mass/Vol] 1.24 mg/dL Normal 0.70-1.30 [facility] ([place]) Comment on above: Performed By: #### A GINA, CBC, BMP, ADIFF #### [address] [address] #### GFR #### [address] [address] Electrolyte Balance 9.0 mEq/L Normal [facility] ([place]) Comment on above: Performed By: #### A GINA, CBC, BMP, ADIFF #### [address] [address] #### GFR #### [address] [address] Glucose [Mass/Vol] 119 mg/dL High 70-105 [facility] ([place]) Comment on above: Performed By: #### A GINA, CBC, BMP, ADIFF #### [address] [address] #### GFR #### [address] [address] Potassium [Moles/Vol] 4.2 mmol/L Normal 3.5-5.1 [facility] ([place]) Comment on above: Performed By: #### A GNIA, CBC, BMP, ADIFF #### [address] [address] #### GFR #### [address] [address] Sodium [Moles/Vol] 135 mmol/L Low 136-145 [facility] ([place]) Comment on above: Performed By: #### A GINA, CBC, BMP, ADIFF #### [address] [address] #### GFR #### [address] [address] Urea nitrogen [Mass/Vol] 31 mg/dL High 7-18 [facility] ([place]) Comment on above: Performed By: #### A GINA, CBC, BMP, ADIFF #### [address] [address] #### GFR #### [address] [address] CBCon 01-08-2021 Erythrocyte distribution width (RBC) [Ratio] 17.5 % High 11.5-14.5 [facility] ([place] Comment on above: Performed By: #### A GINA, CBC, BMP, ADIFF #### [address] [address] #### GFR #### [address] [address] Hematocrit (Bld) [Volume fraction] 41.2 % Low 42.0-52.0 [facility] ([place] Comment on above: Performed By: #### A GINA, CBC, BMP, ADIFF #### [address] [address] #### GFR #### [address] [address] Hgb 13.5 G/dL Low 14.0-18.0 [facility] ([place] Comment on above: Performed By: #### A GINA, CBC, BMP, ADIFF #### [address] [address] #### GFR #### [place] [address] MCH (RBC) [Entitic mass] 27.4 pg Normal 27.0-31.2 [facility] ([place] Comment on above: Performed By: #### A GINA, CBC, BMP, ADIFF #### [place] [address] #### GFR #### [place] [address] MCHC 32.7 G/dL Normal 31.8-35.4 [facility] ([place] Comment on above: Performed By: #### A GINA, CBC, BMP, ADIFF #### [place] [address] #### GFR #### [place] [address] MCV (RBC) [Entitic vol] 83.8 fL Normal 80.0-94.0 A [facility] ([place] Comment on above: Performed By: #### A GINA, CBC, BMP, ADIFF #### [place] [address] #### GFR #### [place] [address] Platelet 219 10 3/mcL Normal 130-400 [facility] ([place]) Comment on above: Performed By: #### A GINA, CBC, BMP, ADIFF #### [place] [address] #### GFR #### [address] [address] Platelet mean volume (Bld) [Entitic vol] 9.1 fL Normal 7.4-10.4 [facility] ([place]) Comment on above: Performed By: #### A GINA, CBC, BMP, ADIFF #### [address] [address] #### GFR #### [place] [address] RBC 4.91 10 6/mcL Normal 4.04-6.13 [facility] ([place] Comment on above: Performed By: #### A GINA, CBC, BMP, ADIFF #### [address] [address] #### GFR #### [place] [address] WBC 10.10 10 3/mcL Normal 4.60-10.80 [facility] ([place]) Comment on above: Performed By: #### A GINA, CBC, BMP, ADIFF #### [address] [address] #### GFR #### [place] [address] CRPon 01-08-2021 C-Reactive Protein 5.0 mg/dL High 0.0-0.9 [facility] ([place] Comment on above: Performed By: #### A GINA, CBC, BMP, ADIFF #### [address] [address] #### GFR #### [place] [address] DIMERon 01-08-2021 D-Dimer 446 ng/mL D-DU High 0-230 [facility] ([place]) Comment on above: Result Comment: The result [...] #### A GINA, CBC, BMP, ADIFF #### [place] [address] #### GFR #### [place] [address] Melva 01-08-2021 Ferritin [Mass/Vol] 344.9 ng/mL Normal 26.0-388.0 [facility] ([place] Comment on above: Performed By: #### A GINA, CBC, BMP, ADIFF #### [place] [address] #### GFR #### [place] [address] FIBon 01-08-2021 Fibrinogen 564 mg/dL Normal 292-711 [facility] ([place] Comment on above: Performed By: #### A GINA, CBC, BMP, ADIFF #### [place] [address] #### GFR #### [place] [address] LDHon 01-08-2021 LDH 460 U/L High 85-227 [facility] ([place]) Comment on above: Performed By: #### A GINA, CBC, BMP, ADIFF #### [place] [address] #### GFR #### [place] [address] MGon 01-08-2021 Magnesium [Mass/Vol] 2.1 mg/dL Normal 1.8-2.4 [facility] ([place] Comment on above: Performed By: #### A GINA, CBC, BMP, ADIFF #### [place] [address] #### GFR #### [place] [address] PROon 01-08-2021 INR Coag (PPP) [Relative time] 0.9 {INR} Normal 0.9-1.2 [facility] ([place]) Comment on above: Result Comment: Yohannes dard [...] #### A GINA, CBC, BMP, ADIFF #### [address] [address] #### GFR #### [address] [address] PT Coag (PPP) [Time] 11.3 s Normal 9.7-14.7 [facility] ([place] Comment on above: Performed By: #### A GINA, CBC, BMP, ADIFF #### [address] [address] #### GFR #### [place] [id number] TROPHSon 01-08-2021 Troponin I High Sensitivity 30.9 ng/L Normal 0.0-76.2 [facility] ([place] Comment on above: Performed By: #### A GINA, CBC, BMP, ADIFF #### [address] [address] #### GFR #### [place] [address] .GFRon 01-07-2021 GFR Non- 49 ml/min/1.73sqm Normal [facility] ([place] Comment on above: Result Comment: GFR Population [...] meters Performed By: #### P BNP #### [address] [address] #### BMP, GFR #### [address] [address] GFR 60 ml/min/1.73sqm Normal [facility] ([place] Comment on above: Result Comment: GFR Population [...] meters Performed By: #### P BNP #### [place] [address] #### BMP, GFR #### [place] [address] .Manual Diffon 01-07-2021 Bands 25.0 % High 0.0-5.0 [facility] ([place] Comment on above: Performed By: #### P BNP #### [address] [address] #### BMP, GFR #### [address] [address] Basophil %, Manual 0.0 % Normal 0.0-2.5 [facility] ([place] Comment on above: Performed By: #### P BNP #### [address] [address] #### BMP, GFR #### [place] [id number] Basophil, Abs Manual 0.00 10 3/mcL Normal 0.00-0.19 A [facility] ([place] Comment on above: Performed By: #### P BNP #### [place] [address] #### BMP, GFR #### [address] [address] Eosinophil %, Manual 0.0 % Normal 0.0-7.0 [facility] ([place] Comment on above: Performed By: #### P BNP #### [place] [address] #### BMP, GFR #### [address] [address] Eosinophil, Abs Manual 0.00 10 3/mcL Normal 0.00-0.40 [facility] ([place] Comment on above: Performed By: #### P BNP #### [place] [address] #### BMP, GFR #### [place] [address] Lymphocyte %, Manual 1.0 % Low 10.0-50.0 [facility] ([place] Comment on above: Performed By: #### P BNP #### [place] [address] #### BMP, GFR #### [address] [address] Lymphocyte, Abs Manual 0.10 10 3/mcL Low 0.77-3.85 [facility] ([place] Comment on above: Performed By: #### P BNP #### [place] [address] #### BMP, GFR #### [address] [address] Metamyelocyte 1.0 % Normal [facility] ([place] Comment on above: Performed By: #### P BNP #### [place] [address] #### BMP, GFR #### [place] [id number] Monocyte %, Manual 3.0 % Normal 1.7-13.0 [facility] ([place] Comment on above: Performed By: #### P BNP #### [place] [address] #### BMP, GFR #### [place] [address] Monocyte, Abs Manual 0.36 10 3/mcL Normal 0.15-1.00 A [facility] ([place] Comment on above: Performed By: #### P BNP #### [place] [address] #### BMP, GFR #### [place] [address] Neutrophil %, Manual 70.0 % Normal 37.0-80.0 [facility] ([place] Comment on above: Performed By: #### P BNP #### [place] [address] #### BMP, GFR #### [place] [address] Neutrophil, Abs Manual 11.60 10 3/mcL High 2.85-6.16 [facility] ([place] Comment on above: Performed By: #### P BNP #### [place] [address] #### BMP, GFR #### [place] [address] .Morphon 01-07-2021 Anisocytosis Ql (Bld) Slight Normal [facility] ([place] Comment on above: Performed By: #### P BNP #### [place] [address] #### BMP, GFR #### [place] [address] Ovalocytes Few Normal [facility] ([place] Comment on above: Performed By: #### P BNP #### [place] [address] #### BMP, GFR #### [place] [address] Platelet Estimate Normal Normal [facility] ([place] Comment on above: Performed By: #### P BNP #### [place] [address] #### BMP, GFR #### [place] [address] Toxic Gran Slight Normal [facility] ([place] Comment on above: Performed By: #### P BNP #### [place] [address] #### BMP, GFR #### [place] [address] CBCon 01-07-2021 Erythrocyte distribution width (RBC) [Ratio] 17.2 % High 11.5-14.5 [facility] ([place] Comment on above: Performed By: #### P BNP #### [place] [address] #### BMP, GFR #### [place] [address] Hematocrit (Bld) [Volume fraction] 42.3 % Normal 42.0-52.0 [facility] ([place] Comment on above: Performed By: #### P BNP #### [place] [address] #### BMP, GFR #### [place] [address] Hgb 14.2 G/dL Normal 14.0-18.0 [facility] ([place] Comment on above: Performed By: #### P BNP #### [place] [address] #### BMP, GFR #### [place] [address] MCH (RBC) [Entitic mass] 27.7 pg Normal 27.0-31.2 [facility] ([place] Comment on above: Performed By: #### P BNP #### [place] [address] #### BMP, GFR #### [place] [address] MCHC 33.6 G/dL Normal 31.8-35.4 [facility] ([place] Comment on above: Performed By: #### P BNP #### [place] [address] #### BMP, GFR #### [place] [address] MCV (RBC) [Entitic vol] 82.7 fL Normal 80.0-94.0 A [facility] ([place] Comment on above: Performed By: #### P BNP #### [place] [address] #### BMP, GFR #### [place] [address] Platelet 216 10 3/mcL Normal 130-400 [facility] ([place] Comment on above: Performed By: #### P BNP #### [place] [address] #### BMP, GFR #### [place] [address] Platelet mean volume (Bld) [Entitic vol] 9.4 fL Normal 7.4-10.4 [facility] ([place] Comment on above: Performed By: #### P BNP #### [place] [address] #### BMP, GFR #### [place] [address] RBC 5.12 10 6/mcL Normal 4.04-6.13 [facility] ([place] Comment on above: Performed By: #### P BNP #### [place] [address] #### BMP, GFR #### [place] [address] WBC 12.10 10 3/mcL High 4.60-10.80 [facility] ([place] Comment on above: Performed By: #### P BNP #### [place] [address] #### BMP, GFR #### [address] [address] CMPon 01-07-2021 Albumin Level 2.9 G/dL Low 3.5-5.0 [facility] ([place] Comment on above: Performed By: #### P BNP #### [address] [address] #### BMP, GFR #### [address] [address] Albumin/Globulin [Mass ratio] 0.7 {ratio} Low 1.1-2.5 [facility] ([place] Comment on above: Performed By: #### P BNP #### [place] [address] #### BMP, GFR #### [address] [address] ALP [Catalytic activity/Vol] 131 U/L Normal 40-135 [facility] ([place] Comment on above: Performed By: #### P BNP #### [place] [address] #### BMP, GFR #### [address] [address] ALT [Catalytic activity/Vol] 74 U/L High 16-63 [facility] ([place] Comment on above: Performed By: #### P BNP #### [address] [address] #### BMP, GFR #### [address] [address] AST [Catalytic activity/Vol] 87 U/L High 10-40 [facility] ([place]) Comment on above: Performed By: #### P BNP #### [place] [address] #### BMP, GFR #### [address] [address] Bili Total 0.5 mg/dL Normal 0.2-1.0 [facility] ([place] Comment on above: Result Comment: Use of this assay is not recommended for patients undergoing treatment with eltrombopag due to the potential for falsely elevated results. Performed By: #### P BNP #### [address] [address] #### BMP, GFR #### [address] [address] BUN/Creatinine Ratio 32 ratio High 7-27 [facility] ([place] Comment on above: Performed By: #### P BNP #### [place] [address] #### BMP, GFR #### [address] [address] Calcium [Mass/Vol] 8.3 mg/dL Low 8.4-10.2 [facility] ([place] Comment on above: Performed By: #### P BNP #### [place] [address] #### BMP, GFR #### [place] [address] Chloride [Moles/Vol] 96 mmol/L Low 98-107 [facility] ([place] Comment on above: Performed By: #### P BNP #### [place] [address] #### BMP, GFR #### [place] [address] CO2 [Moles/Vol] 29 mmol/L Normal 22-29 [facility] ([place] Comment on above: Performed By: #### P BNP #### [place] [id number] #### BMP, GFR #### [address] [address] Creatinine [Mass/Vol] 1.51 mg/dL High 0.70-1.30 [facility] ([place] Comment on above: Performed By: #### P BNP #### [place] [id number] #### BMP, GFR #### [address] [address] Electrolyte Balance 8.0 mEq/L Normal [facility] ([place] Comment on above: Performed By: #### P BNP #### [address] [address] #### BMP, GFR #### [address] [address] Globulin 4.2 G/dL Normal [facility] ([place] Comment on above: Performed By: #### P BNP #### [address] [address] #### BMP, GFR #### [address] [address] Glucose [Mass/Vol] 138 mg/dL High 70-105 [facility] ([place] Comment on above: Performed By: #### P BNP #### [address] [address] #### BMP, GFR #### [address] [address] Potassium [Moles/Vol] 3.9 mmol/L Normal 3.5-5.1 [facility] ([place] Comment on above: Performed By: #### P BNP #### [address] [address] #### BMP, GFR #### [address] [address] Sodium [Moles/Vol] 133 mmol/L Low 136-145 [facility] ([place] Comment on above: Performed By: #### P BNP #### [address] [address] #### BMP, GFR #### [address] [address] Total Protein 7.1 G/dL Normal 6.4-8.2 [facility] ([place] Comment on above: Performed By: #### P BNP #### [address] [address] #### BMP, GFR #### [address] [address] Urea nitrogen [Mass/Vol] 48 mg/dL High 7-18 [facility] ([place] Comment on above: Performed By: #### P BNP #### [address] [address] #### BMP, GFR #### [address] [address] CRPon 01-07-2021 C-Reactive Protein 1.2 mg/dL High 0.0-0.9 [facility] ([place] Comment on above: Performed By: #### A GINA, CBC, BMP, ADIFF #### [place] [address] #### GFR #### [place] [address] DIMERon 01-07-2021 D-Dimer 335 ng/mL D-DU High 0-230 [facility] ([place] Comment on above: Result Comment: The result [...] (PE). Performed By: #### P BNP #### [place] [address] #### BMP, GFR #### [place] [address] Melva 01-07-2021 Ferritin [Mass/Vol] 331.4 ng/mL Normal 26.0-388.0 [facility] ([place] Comment on above: Performed By: #### A GINA, CBC, BMP, ADIFF #### [address] [address] #### GFR #### [place] [id number] FIBon 01-07-2021 Fibrinogen 592 mg/dL Normal 292-711 [facility] ([place] Comment on above: Performed By: #### A GINA, CBC, BMP, ADIFF #### [address] [address] #### GFR #### [address] [address] LDHon 01-07-2021 LDH 495 U/L High 85-227 [facility] ([place] Comment on above: Performed By: #### A GINA, CBC, BMP, ADIFF #### [address] [address] #### GFR #### [address] [address] LIPIDon 01-07-2021 Cholesterol [Mass/Vol] 82 mg/dL Normal 0-200 [facility] ([place]) Comment on above: Result Comment: Chol esterol Reference Interval: Less than 200 Desirable 200-239 Borderline high risk 240 and above High risk Performed By: #### P BNP #### [address] [address] #### BMP, GFR #### [address] [address] Cholesterol in HDL [Mass/Vol] 27 mg/dL Low 40-60 [facility] ([place]) Comment on above: Performed By: #### P BNP #### [address] [address] #### BMP, GFR #### [address] [address] Cholesterol in LDL [Mass/Vol] 38 mg/dL Normal 0-130 [facility] ([place]) Comment on above: Performed By: #### P BNP #### [address] [address] #### BMP, GFR #### [address] [address] Triglyceride [Mass/Vol] 85 mg/dL Normal 0-150 A [facility] ([place]) Comment on above: Result Comment: Trig lyceride Reference Interval: Less than 150 Normal 150-199 Borderline high risk 200-499 High risk 500 or higher Very high risk Performed By: #### P BNP #### [place] [address] #### BMP, GFR #### [place] [address] MGon 01-07-2021 Magnesium [Mass/Vol] 2.5 mg/dL High 1.8-2.4 [facility] ([place]) Comment on above: Performed By: #### A GINA, CBC, BMP, ADIFF #### [place] [address] #### GFR #### [place] [address] PROon 01-07-2021 INR Coag (PPP) [Relative time] 0.9 {INR} Normal 0.9-1.2 [facility] ([place]) Comment on above: Result Comment: Yohannes dard [...] #### A GINA, CBC, BMP, ADIFF #### [place] [address] #### GFR #### [place] [address] PT Coag (PPP) [Time] 11.1 s Normal 9.7-14.7 [facility] ([place] Comment on above: Performed By: #### A GINA, CBC, BMP, ADIFF #### [place] [address] #### GFR #### [place] [address] TROPHSon 01-07-2021 Troponin I High Sensitivity 34.6 ng/L Normal 0.0-76.2 [facility] ([place] Comment on above: Performed By: #### A GINA, CBC, BMP, ADIFF #### [place] [address] #### GFR #### [address] [address] .Auto Diffon 01-06-2021 Basophil, Absolute 0.00 10 3/mcL Normal 0.00-0.19 [facility] ([place]) Comment on above: Performed By: #### P BNP #### [place] [address] #### BMP, GFR #### [address] [address] Basophils/100 WBC (Bld) 0.6 % Normal 0.0-2.5 A [facility] ([place]) Comment on above: Performed By: #### P BNP #### [place] [address] #### BMP, GFR #### [address] [address] Eosinophil, Absolute 0.00 10 3/mcL Normal 0.00-0.40 A [facility] ([place]) Comment on above: Performed By: #### P BNP #### [place] [address] #### BMP, GFR #### [address] [address] Eosinophils/100 WBC (Bld) 0.0 % Normal 0.0-7.0 [facility] ([place]) Comment on above: Performed By: #### P BNP #### [place] [address] #### BMP, GFR #### [address] [address] Lymphocyte, Absolute 0.90 10 3/mcL Normal 0.77-3.85 A [facility] ([place]) Comment on above: Performed By: #### P BNP #### [place] [address] #### BMP, GFR #### [address] [address] Lymphocytes/100 WBC (Bld) 13.0 % Normal 10.0-50.0 [facility] ([place] Comment on above: Performed By: #### P BNP #### [address] [address] #### BMP, GFR #### [facility] [address] [place] [address] Monocyte, Absolute 0.90 10 3/mcL Normal 0.15-1.00 [facility] ([place] Comment on above: Performed By: #### P BNP #### [address] [address] #### BMP, GFR #### [address] [address] Monocytes/100 WBC (Bld) 12.4 % Normal 1.7-13.0 A [facility] ([place] Comment on above: Performed By: #### P BNP #### [address] [address] #### BMP, GFR #### [address] [address] Neutrophils/100 WBC (Bld) 74.0 % Normal 37.0-80.0 [facility] ([place]) Comment on above: Performed By: #### P BNP #### [address] [address] #### BMP, GFR #### [address] [address] .GFRon 01-06-2021 GFR 49 ml/min/1.73sqm Normal [facility] ([place]) Comment on above: Result Comment: GFR Population [...] meters Performed By: #### P BNP #### [address] [address] #### BMP, GFR #### [address] [address] GFR Non- 40 ml/min/1.73sqm Normal [facility] ([place]) Comment on above: Result Comment: GFR Population [...] meters Performed By: #### P BNP #### [address] [address] #### BMP, GFR #### [address] [address] .NEUABSon 01-06-2021 Neutrophil, Absolute 5.10 10 3/mcL Normal 2.85-6.16 A [facility] ([place]) Comment on above: Performed By: #### P BNP #### [address] [address] #### BMP, GFR #### [address] [address] A1Con 01-06-2021 HbA1c (Bld) [Mass fraction] 6.0 % Normal 4.3-6.4 [facility] ([place]) Comment on above: Performed By: #### P BNP #### [address] [address] #### BMP, GFR #### [address] [address] BMPon 01-06-2021 BUN/Creatinine Ratio 37 ratio High 7-27 [facility] ([place]) Comment on above: Performed By: #### P BNP #### [address] [address] #### BMP, GFR #### [address] [address] Calcium [Mass/Vol] 7.9 mg/dL Low 8.4-10.2 [facility] ([place]) Comment on above: Performed By: #### P BNP #### [address] [address] #### BMP, GFR #### [address] [address] Chloride [Moles/Vol] 90 mmol/L Low 98-107 [facility] ([place]) Comment on above: Performed By: #### P BNP #### [address] [address] #### BMP, GFR #### [address] [address] CO2 [Moles/Vol] 27 mmol/L Normal 22-29 [facility] ([place]) Comment on above: Performed By: #### P BNP #### [address] [address] #### BMP, GFR #### [address] [address] Creatinine [Mass/Vol] 1.80 mg/dL High 0.70-1.30 [facility] ([place] Comment on above: Performed By: #### P BNP #### [address] [address] #### BMP, GFR #### [address] [address] Electrolyte Balance 10.0 mEq/L Normal [facility] ([place]) Comment on above: Performed By: #### P BNP #### [address] [address] #### BMP, GFR #### [address] [address] Glucose [Mass/Vol] 130 mg/dL High 70-105 [facility] ([place]) Comment on above: Performed By: #### P BNP #### [address] [address] #### BMP, GFR #### [address] [address] Potassium [Moles/Vol] 3.7 mmol/L Normal 3.5-5.1 [facility] ([place] Comment on above: Performed By: #### P BNP #### [address] [address] #### BMP, GFR #### [address] [address] Sodium [Moles/Vol] 127 mmol/L Low 136-145 [facility] ([place]) Comment on above: Performed By: #### P BNP #### [place] [id number] #### BMP, GFR #### [address] [address] Urea nitrogen [Mass/Vol] 67 mg/dL High 7-18 [facility] ([place]) Comment on above: Performed By: #### P BNP #### [address] [address] #### BMP, GFR #### [address] [address] CBCon 01-06-2021 Erythrocyte distribution width (RBC) [Ratio] 17.0 % High 11.5-14.5 [facility] ([place]) Comment on above: Performed By: #### P BNP #### [address] [address] #### BMP, GFR #### [address] [address] Hematocrit (Bld) [Volume fraction] 42.7 % Normal 42.0-52.0 [facility] ([place]) Comment on above: Performed By: #### P BNP #### [place] [address] #### BMP, GFR #### [place] [address] Hgb 14.7 G/dL Normal 14.0-18.0 [facility] ([place]) Comment on above: Performed By: #### P BNP #### [place] [address] #### BMP, GFR #### [place] [address] MCH (RBC) [Entitic mass] 28.3 pg Normal 27.0-31.2 [facility] ([place]) Comment on above: Performed By: #### P BNP #### [place] [address] #### BMP, GFR #### [place] [address] MCHC 34.5 G/dL Normal 31.8-35.4 [facility] ([place]) Comment on above: Performed By: #### P BNP #### [place] [address] #### BMP, GFR #### [place] [address] MCV (RBC) [Entitic vol] 82.0 fL Normal 80.0-94.0 A [facility] ([place]) Comment on above: Performed By: #### P BNP #### [place] [address] #### BMP, GFR #### [place] [address] Platelet 194 10 3/mcL Normal 130-400 [facility] ([place]) Comment on above: Performed By: #### P BNP #### [place] [address] #### BMP, GFR #### [place] [address] Platelet mean volume (Bld) [Entitic vol] 9.6 fL Normal 7.4-10.4 [facility] ([place] Comment on above: Performed By: #### P BNP #### [place] [address] #### BMP, GFR #### [place] [address] RBC 5.21 10 6/mcL Normal 4.04-6.13 [facility] ([place]) Comment on above: Performed By: #### P BNP #### [place] [address] #### BMP, GFR #### [place] [address] WBC 6.80 10 3/mcL Normal 4.60-10.80 [facility] ([place]) Comment on above: Performed By: #### P BNP #### [place] [address] #### BMP, GFR #### [place] [address] CRPon 01-06-2021 C-Reactive Protein 1.2 mg/dL High 0.0-0.9 [facility] ([place]) Comment on above: Performed By: #### P SA #### [place] [address] Melva 01-06-2021 Ferritin [Mass/Vol] 315.4 ng/mL Normal 26.0-388.0 [facility] ([place]) Comment on above: Performed By: #### C MP, GFR, TSH, LIPID #### [place] [address] #### CBC, ANEU, PBNP, ADIFF #### [place] [address] FIBon 01-06-2021 Fibrinogen 584 mg/dL Normal 292-711 [facility] ([place]) Comment on above: Performed By: #### P SA #### [place] [id number] LDHon 01-06-2021 LDH 475 U/L High 85-227 [facility] ([place]) Comment on above: Performed By: #### P SA #### [address] [address] MGon 01-06-2021 Magnesium [Mass/Vol] 2.3 mg/dL Normal 1.8-2.4 [facility] ([place]) Comment on above: Performed By: #### P BNP #### [address] [address] #### BMP, GFR #### [place] [address] NAURon 01-06-2021 U Sodium <5 Low 20-110 [facility] ([place]) Comment on above: Performed By: #### A GINA, CBC, BMP, ADIFF #### [place] [address] #### GFR #### [place] [address] PROon 01-06-2021 INR Coag (PPP) [Relative time] 1.0 {INR} Normal 0.9-1.2 [facility] ([place]) Comment on above: Result Comment: Yohannes dard Dose 2.0 - 3.0 High Dose 2.5 - 3.5 The recommended therapeutic range for oral anticoagulant therapy is: LOW RISK: Prophylaxis of venous thrombosis INR: 2.0 - 3.0 Treatment of pulmonary embolism 2.0 - 3.0 Prevention of systemic embolism 2.0 - 3.0 HIGH RISK: Mechanical prosthetic valves 2.5 - 3.5 Performed By: #### P SA #### [address] [address] PT Coag (PPP) [Time] 11.6 s Normal 9.7-14.7 [facility] ([place] Comment on above: Performed By: #### P SA #### [address] [address] TROPHSon 01-06-2021 Troponin I High Sensitivity 50.5 ng/L Normal 0.0-76.2 [facility] ([place]) Comment on above: Performed By: #### P SA #### [address] [address] .Auto Diffon 03-31-2021 Basophil, Absolute 0.00 10 3/mcL Normal 0.00-0.19 [facility] ([place] Comment on above: Performed By: #### P BNP #### [place] [address] #### BMP, GFR #### [address] [address] Basophils/100 WBC (Bld) 0.7 % Normal 0.0-2.5 A [facility] ([place]) Comment on above: Performed By: #### P BNP #### [place] [address] #### BMP, GFR #### [address] [address] Eosinophil, Absolute 0.00 10 3/mcL Normal 0.00-0.40 A [facility] ([place]) Comment on above: Performed By: #### P BNP #### [place] [address] #### BMP, GFR #### [address] [address] Eosinophils/100 WBC (Bld) 0.1 % Normal 0.0-7.0 [facility] ([place]) Comment on above: Performed By: #### P BNP #### [place] [address] #### BMP, GFR #### [address] [address] Lymphocyte, Absolute 0.90 10 3/mcL Normal 0.77-3.85 A [facility] ([place] Comment on above: Performed By: #### P BNP #### [place] [address] #### BMP, GFR #### [address] [address] Lymphocytes/100 WBC (Bld) 14.3 % Normal 10.0-50.0 [facility] ([place] Comment on above: Performed By: #### P BNP #### [address] [address] #### BMP, GFR #### [address] [address] Monocyte, Absolute 0.90 10 3/mcL Normal 0.15-1.00 [facility] ([place] Comment on above: Performed By: #### P BNP #### [address] [address] #### BMP, GFR #### [address] [address] Monocytes/100 WBC (Bld) 13.9 % High 1.7-13.0 A [facility] ([place] Comment on above: Performed By: #### P BNP #### [place] [address] #### BMP, GFR #### [address] [address] Neutrophils/100 WBC (Bld) 71.0 % Normal 37.0-80.0 [facility] ([place] Comment on above: Performed By: #### P BNP #### [address] [address] #### BMP, GFR #### [address] [address] .GFRon 01-05-2021 GFR Non- 36 ml/min/1.73sqm Normal [facility] ([place] Comment on above: Result Comment: GFR Population [...] meters Performed By: #### P BNP #### [address] [address] #### BMP, GFR #### [address] [address] GFR 44 ml/min/1.73sqm Normal [facility] ([place]) Comment on above: Result Comment: GFR Population [...] meters Performed By: #### P BNP #### [address] [address] #### BMP, GFR #### [address] [address] GFR 39 ml/min/1.73sqm Normal [facility] ([place]) Comment on above: Result Comment: GFR Population [...] meters Performed By: #### P BNP #### [address] [address] #### BMP, GFR #### [address] [address] GFR Non- 33 ml/min/1.73sqm Normal [facility] ([place] Comment on above: Result Comment: GFR Population [...] meters Performed By: #### P BNP #### [place] [address] #### BMP, GFR #### [place] [address] .Morphon 01-05-2021 Platelet Estimate Normal Normal [facility] ([place] Comment on above: Performed By: #### P BNP #### [place] [address] #### BMP, GFR #### [place] [address] .NEUABSon 01-05-2021 Neutrophil, Absolute 4.50 10 3/mcL Normal 2.85-6.16 A [facility] ([place] Comment on above: Performed By: #### P BNP #### [place] [address] #### BMP, GFR #### [place] [address] .Urinalysis Microscopic (AO) on 01-05-2021 UA Amorphus 1+ /hpf Normal [facility] ([place] Comment on above: Performed By: #### A GINA, CBC, BMP, ADIFF #### [place] [address] #### GFR #### [address] [address] UA Bacteria 4+ /hpf Abnormal [facility] ([place] Comment on above: Performed By: #### A GINA, CBC, BMP, ADIFF #### [address] [address] #### GFR #### [address] [address] UA Coarse Granular Casts 0-5 Abnormal [facility] ([place] Comment on above: Performed By: #### A GINA, CBC, BMP, ADIFF #### [address] [address] #### GFR #### [place] [address] UA RBC 0-5 Abnormal None Seen [facility] ([place] Comment on above: Performed By: #### A GINA, CBC, BMP, ADIFF #### [address] [address] #### GFR #### [place] [address] UA Squam Epithelial 0-5 Abnormal None Seen [facility] ([place] Comment on above: Performed By: #### A GINA, CBC, BMP, ADIFF #### [address] [address] #### GFR #### [place] [address] UA WBC 5-10 Abnormal None Seen [facility] ([place] Comment on above: Performed By: #### A GINA, CBC, BMP, ADIFF #### [address] [address] #### GFR #### [place] [address] BMPon 01-05-2021 BUN/Creatinine Ratio 37 ratio High 05-03 [facility] ([place] Comment on above: Performed By: #### P BNP #### [address] [address] #### BMP, GFR #### [place] [address] Calcium [Mass/Vol] 7.9 mg/dL Low 8.4-10.2 [facility] ([place]) Comment on above: Performed By: #### P BNP #### [address] [address] #### BMP, GFR #### [address] [address] Chloride [Moles/Vol] 89 mmol/L Low 98-107 [facility] ([place] Comment on above: Performed By: #### P BNP #### [address] [address] #### BMP, GFR #### [address] [address] CO2 [Moles/Vol] 30 mmol/L High 22-29 [facility] ([place] Comment on above: Performed By: #### P BNP #### [address] [address] #### BMP, GFR #### [address] [address] Creatinine [Mass/Vol] 1.96 mg/dL High 0.70-1.30 [facility] ([place] Comment on above: Performed By: #### P BNP #### [address] [address] #### BMP, GFR #### [address] [address] Electrolyte Balance 8.0 mEq/L Normal [facility] ([place] Comment on above: Performed By: #### P BNP #### [address] [address] #### BMP, GFR #### [address] [address] Glucose [Mass/Vol] 157 mg/dL High 70-105 [facility] ([place] Comment on above: Performed By: #### P BNP #### [address] [address] #### BMP, GFR #### [address] [address] Potassium [Moles/Vol] 3.6 mmol/L Normal 3.5-5.1 [facility] ([place] Comment on above: Performed By: #### P BNP #### [address] [address] #### BMP, GFR #### [address] [address] Sodium [Moles/Vol] 127 mmol/L Low 136-145 [facility] ([place] Comment on above: Performed By: #### P BNP #### [address] [address] #### BMP, GFR #### [address] [address] Urea nitrogen [Mass/Vol] 72 mg/dL High 7-18 [facility] ([place] Comment on above: Performed By: #### P BNP #### [place] [address] #### BMP, GFR #### [address] [address] BUN/Creatinine Ratio 33 ratio High 7-27 [facility] ([place] Comment on above: Performed By: #### P BNP #### [address] [address] #### BMP, GFR #### [address] [address] Calcium [Mass/Vol] 8.4 mg/dL Normal 8.4-10.2 [facility] ([place] Comment on above: Performed By: #### P BNP #### [address] [address] #### BMP, GFR #### [address] [address] Chloride [Moles/Vol] 87 mmol/L Low 98-107 [facility] ([place] Comment on above: Performed By: #### P BNP #### [place] [address] #### BMP, GFR #### [address] [address] CO2 [Moles/Vol] 26 mmol/L Normal 22-29 [facility] ([place] Comment on above: Performed By: #### P BNP #### [address] [address] #### BMP, GFR #### [address] [address] Creatinine [Mass/Vol] 2.16 mg/dL High 0.70-1.30 [facility] ([place] Comment on above: Performed By: #### P BNP #### [address] [address] #### BMP, GFR #### [address] [address] Electrolyte Balance 13.0 mEq/L Normal [facility] ([place] Comment on above: Performed By: #### P BNP #### [place] [id number] #### BMP, GFR #### [address] [address] Glucose [Mass/Vol] 154 mg/dL High 70-105 [facility] ([place] Comment on above: Performed By: #### P BNP #### [address] [address] #### BMP, GFR #### [address] [address] Potassium [Moles/Vol] 3.9 mmol/L Normal 3.5-5.1 [facility] ([place] Comment on above: Performed By: #### P BNP #### [address] [address] #### BMP, GFR #### [address] [address] Sodium [Moles/Vol] 126 mmol/L Low 136-145 [facility] ([place] Comment on above: Performed By: #### P BNP #### [address] [address] #### BMP, GFR #### [address] [address] Urea nitrogen [Mass/Vol] 72 mg/dL High 7-18 [facility] ([place] Comment on above: Performed By: #### P BNP #### [address] [address] #### BMP, GFR #### [address] [address] CBCon 01-05-2021 Erythrocyte distribution width (RBC) [Ratio] 16.8 % High 11.5-14.5 [facility] ([place] Comment on above: Performed By: #### P BNP #### [place] [id number] #### BMP, GFR #### [address] [address] Hematocrit (Bld) [Volume fraction] 49.0 % Normal 42.0-52.0 [facility] ([place] Comment on above: Performed By: #### P BNP #### [address] [address] #### BMP, GFR #### [place] [address] Hgb 16.7 G/dL Normal 14.0-18.0 [facility] ([place] Comment on above: Performed By: #### P BNP #### [address] [address] #### BMP, GFR #### [place] [address] MCH (RBC) [Entitic mass] 27.9 pg Normal 27.0-31.2 [facility] ([place] Comment on above: Performed By: #### P BNP #### [address] [address] #### BMP, GFR #### [place] [address] MCHC 34.1 G/dL Normal 31.8-35.4 [facility] ([place] Comment on above: Performed By: #### P BNP #### [place] [id number] #### BMP, GFR #### [place] [address] MCV (RBC) [Entitic vol] 81.8 fL Normal 80.0-94.0 A [facility] ([place] Comment on above: Performed By: #### P BNP #### [place] [address] #### BMP, GFR #### [place] [address] Platelet 221 10 3/mcL Normal 130-400 [facility] ([place] Comment on above: Performed By: #### P BNP #### [place] [address] #### BMP, GFR #### [place] [address] Platelet mean volume (Bld) [Entitic vol] 9.3 fL Normal 7.4-10.4 [facility] ([place] Comment on above: Performed By: #### P BNP #### [place] [address] #### BMP, GFR #### [place] [address] RBC 5.99 10 6/mcL Normal 4.04-6.13 [facility] ([place] Comment on above: Performed By: #### P BNP #### [place] [address] #### BMP, GFR #### [place] [address] WBC 6.40 10 3/mcL Normal 4.60-10.80 [facility] ([place] Comment on above: Performed By: #### P BNP #### [place] [id number] #### BMP, GFR #### [place] [address] [id number] 01-05-2021 Date of Onset [id number] Invalid Interpretation Code [facility] ([place] Comment on above: Order Comment: Abhishek Maldonado ll @ 1747 ja Performed By: #### C MP, GFR, TSH, LIPID #### [address] [id number] #### CBC, ANEU, PBNP, ADIFF #### [address] [address] Employed in Healthcare No [facility] ([place] Comment on above: Order Comment: Abhishek Maldonado ll @ 1747 ja Performed By: #### C MP, GFR, TSH, LIPID #### [place] [address] #### CBC, ANEU, PBNP, ADIFF #### [place] [address] First Test No [facility] ([place] Comment on above: Order Comment: Abhishek Maldonado ll @ 1747 ja Performed By: #### C MP, GFR, TSH, LIPID #### [place] [address] #### CBC, ANEU, PBNP, ADIFF #### [address] [address] Hospitalized Yes [facility] ([place] Comment on above: Order Comment: Abhishek Maldonado ll @ 1747 ja Performed By: #### C MP, GFR, TSH, LIPID #### [place] [address] #### CBC, ANEU, PBNP, ADIFF #### [address] [address] ICU No [facility] ([place] Comment on above: Order Comment: Abhishek Maldonado ll @ 1747 ja Performed By: #### C MP, GFR, TSH, LIPID #### [place] [id number] #### CBC, ANEU, PBNP, ADIFF #### [address] [address] Not [facility] ([place] Comment on above: Order Comment: Abhishek Maldonado ll @ 1747 ja Performed By: #### C MP, GFR, TSH, LIPID #### [address] [address] #### CBC, ANEU, PBNP, ADIFF #### [address] [address] Resides in Congregate Care Setting No Normal [facility] ([place] Comment on above: Order Comment: Abhishek Joel pepe @ 9081 ja Performed By: #### C MP, GFR, TSH, LIPID #### [address] [address] #### CBC, ANEU, PBNP, ADIFF #### [address] [address] SARS-CoV-2 (COVID-19) RNA ZANDER+probe Ql (Unsp spec) Positive Abnormal Negative [facility] ([place] Comment on above: Order Comment: Abhishek Joel pepe @ 7375 ja Performed By: #### C MP, GFR, TSH, LIPID #### [place] [address] #### CBC, ANEU, PBNP, ADIFF #### [place] [address] SARS-CoV-2 (COVID-19) RNA ZANDER+probe Ql (Unsp spec) Normal [facility] ([place] Comment on above: Order Comment: Abhishek Joel pepe @ 0397 Result Comment: Posi tive results are indicative of the presence of SARS-CoV-2 RNA; clinical correlation with patient history and other diagnostic information is necessary to determine patient infection status. Positive results do not rule out bacterial infection or co-infection with other viruses. The agent detected may not be the definite cause of disease. Laboratories within the [facility] and its territories are required to [...] #### C MP, GFR, TSH, LIPID #### [place] [address] #### CBC, ANEU, PBNP, ADIFF #### [place] [address] Symptomatic as Defined by [facility] Yes Normal [facility] ([place] Comment on above: Order Comment: OmarPresley Espinoza @ 1747 Performed By: #### C MP, GFR, TSH, LIPID #### [place] [address] #### CBC, ANEU, PBNP, ADIFF #### [place] [address] DIMERon 01-05-2021 D-Dimer 461 ng/mL D-DU High 0-230 [facility] ([place]) Comment on above: Result Comment: The result [...] #### C MP, GFR, TSH, LIPID #### [place] [address] #### CBC, ANEU, PBNP, ADIFF #### [place] [address] PBNPon 01-05-2021 Natriuretic peptide B (Bld) [Mass/Vol] 179 pg/mL High 0-125 [facility] ([place]) Comment on above: Result Comment: NT-p roBNP results of less than 300 pg/mL effectively rules out acute congestive heart failure with 99% negative predictive value. Performed By: #### A GINA, CBC, BMP, ADIFF #### [address] [address] #### GFR #### [place] [address] TROPHSon 01-05-2021 Troponin I High Sensitivity 58.2 ng/L Normal 0.0-76.2 [facility] ([place]) Comment on above: Performed By: #### P BNP #### [place] [address] #### BMP, GFR #### [place] [address] UAon 01-05-2021 Color (U) Yellow Normal [facility] ([place]) Comment on above: Performed By: #### A GINA, CBC, BMP, ADIFF #### [place] [address] #### GFR #### [place] [address] Glucose (U) [Mass/Vol] Negative Normal Negative [facility] ([place]) Comment on above: Performed By: #### A GINA, CBC, BMP, ADIFF #### [place] [address] #### GFR #### [place] [address] Ketones Ql (U) Negative Normal Negative [facility] ([place]) Comment on above: Performed By: #### A GINA, CBC, BMP, ADIFF #### [place] [address] #### GFR #### [place] [address] UA Appear Clear Normal Clear [facility] ([place] Comment on above: Performed By: #### A GINA, CBC, BMP, ADIFF #### [address] [address] #### GFR #### [address] [address] UA Bili Small Abnormal Negative [facility] ([place] Comment on above: Performed By: #### A GINA, CBC, BMP, ADIFF #### [address] [address] #### GFR #### [address] [address] UA Blood Moderate Abnormal Negative [facility] ([place] Comment on above: Performed By: #### A GINA, CBC, BMP, ADIFF #### [address] [address] #### GFR #### [place] [address] UA Leuk Est Negative Normal Negative [facility] ([place] Comment on above: Performed By: #### A GINA, CBC, BMP, ADIFF #### [address] [address] #### GFR #### [place] [address] UA Nitrite Negative Normal Negative [facility] ([place]) Comment on above: Performed By: #### A GINA, CBC, BMP, ADIFF #### [address] [address] #### GFR #### [place] [address] UA pH 5.0 Normal 5.0 - 8.0 [facility] ([place]) Comment on above: Performed By: #### A GINA, CBC, BMP, ADIFF #### [address] [address] #### GFR #### [place] [address] UA Protein >=300 Abnormal Negative [facility] ([place] Comment on above: Performed By: #### A GINA, CBC, BMP, ADIFF #### [address] [address] #### GFR #### [place] [address] UA Spec Grav >=1.030 Abnormal 1.015-1.02 5 [facility] ([place] Comment on above: Performed By: #### A GINA, CBC, BMP, ADIFF #### [address] [address] #### GFR #### [place] [address] UA Specimen Type Clean Catch Normal [facility] ([place] Comment on above: Performed By: #### A GINA, CBC, BMP, ADIFF #### [address] [address] #### GFR #### [place] [address] UA Urobilinogen 0.2 E.U./dL Normal 0.2-1.0 [facility] ([place] Comment on above: Performed By: #### A GINA, CBC, BMP, ADIFF #### [address] [address] #### GFR #### [place] [address] XR CHEST 1 VIEWon 01-05-2021 XR CHEST [...] Sign Date: 01/05/2021 3:00:51 PM Ordering Provider:Carlos Rodriguez Normal [facility] ([place]) LIPIDon 07-21-2020 Cholesterol [Mass/Vol] 139 mg/dL Normal 0-200 [facility] ([place]) Comment on above: Result Comment: Chol esterol Reference Interval: Less than 200 Desirable 200-239 Borderline high risk 240 and above High risk Performed By: #### A GINA, CBC, BMP, ADIFF #### [address] [address] #### GFR #### [address] [address] Cholesterol in HDL [Mass/Vol] 53 mg/dL Normal 40-60 [facility] ([place] Comment on above: Performed By: #### A GINA, CBC, BMP, ADIFF #### [address] [address] #### GFR #### [address] [address] Cholesterol in LDL [Mass/Vol] 76 mg/dL Normal 0-130 [facility] ([place] Comment on above: Performed By: #### A GINA, CBC, BMP, ADIFF #### [address] [address] #### GFR #### [address] [address] Triglyceride [Mass/Vol] 52 mg/dL Normal 0-150 A [facility] ([place]) Comment on above: Result Comment: Trig lyceride Reference Interval: Less than 150 Normal 150-199 Borderline high risk 200-499 High risk 500 or higher Very high risk Performed By: #### A GINA, CBC, BMP, ADIFF #### [address] [address] #### GFR #### [address] [address] PSAon 07-21-2020 Prostate Specific Antigen 3.15 ng/mL Normal 0.00-4.00 [facility] ([place]) Comment on above: Performed By: #### A GINA, CBC, BMP, ADIFF #### [address] [address] #### GFR #### [facility] [address] [place] [address] .GFRon 07-09-2020 GFR 84 ml/min/1.73sqm Normal [facility] ([place]) Comment on above: Result Comment: GFR Population [...] #### A GINA, CBC, BMP, ADIFF #### [address] [address] #### GFR #### [address] [address] GFR Non- 69 ml/min/1.73sqm Normal [facility] ([place] Comment on above: Result Comment: GFR Population [...] #### A GINA, CBC, BMP, ADIFF #### [address] [address] #### GFR #### [address] [address] CMPon 07-09-2020 Albumin Level 3.2 G/dL Low 3.5-5.0 [facility] ([place] Comment on above: Performed By: #### A GINA, CBC, BMP, ADIFF #### [address] [address] #### GFR #### [address] [address] Albumin/Globulin [Mass ratio] 0.8 {ratio} Low 1.1-2.5 [facility] ([place]) Comment on above: Performed By: #### A GINA, CBC, BMP, ADIFF #### [address] [address] #### GFR #### [address] [address] ALP [Catalytic activity/Vol] 131 U/L Normal 40-135 [facility] ([place]) Comment on above: Performed By: #### A GINA, CBC, BMP, ADIFF #### [address] [address] #### GFR #### [address] [address] ALT [Catalytic activity/Vol] 60 U/L Normal 16-63 [facility] ([place]) Comment on above: Performed By: #### A GINA, CBC, BMP, ADIFF #### [address] [address] #### GFR #### [address] [address] AST [Catalytic activity/Vol] 36 U/L Normal 10-40 [facility] ([place]) Comment on above: Performed By: #### A GINA, CBC, BMP, ADIFF #### [address] [address] #### GFR #### [address] [address] Bili Total 0.5 mg/dL Normal 0.2-1.0 [facility] ([place]) Comment on above: Result Comment: Use of this assay is not recommended for patients undergoing treatment with eltrombopag due to the potential for falsely elevated results. Performed By: #### A GINA, CBC, BMP, ADIFF #### [address] [address] #### GFR #### [address] [address] BUN/Creatinine Ratio 17 ratio Normal 7-27 [facility] ([place] Comment on above: Performed By: #### A GINA, CBC, BMP, ADIFF #### [address] [address] #### GFR #### [address] [address] Calcium [Mass/Vol] 8.8 mg/dL Normal 8.4-10.2 [facility] ([place]) Comment on above: Performed By: #### A GINA, CBC, BMP, ADIFF #### [place] [address] #### GFR #### [address] [address] Chloride [Moles/Vol] 103 mmol/L Normal 98-107 [facility] ([place] Comment on above: Performed By: #### A GINA, CBC, BMP, ADIFF #### [address] [address] #### GFR #### [address] [address] CO2 [Moles/Vol] 33 mmol/L High 22-29 [facility] ([place]) Comment on above: Performed By: #### A GINA, CBC, BMP, ADIFF #### [address] [address] #### GFR #### [address] [address] Creatinine [Mass/Vol] 1.12 mg/dL Normal 0.70-1.30 [facility] ([place]) Comment on above: Performed By: #### A GINA, CBC, BMP, ADIFF #### [address] [address] #### GFR #### [address] [address] Electrolyte Balance 5.0 mEq/L Normal [facility] ([place]) Comment on above: Performed By: #### A GINA, CBC, BMP, ADIFF #### [address] [address] #### GFR #### [address] [address] Globulin 3.9 G/dL Normal [facility] ([place]) Comment on above: Performed By: #### A GINA, CBC, BMP, ADIFF #### [address] [address] #### GFR #### [address] [address] Glucose [Mass/Vol] 95 mg/dL Normal 70-105 [facility] ([place]) Comment on above: Performed By: #### A GINA, CBC, BMP, ADIFF #### [address] [address] #### GFR #### [address] [address] Potassium [Moles/Vol] 4.2 mmol/L Normal 3.5-5.1 [facility] ([place] Comment on above: Performed By: #### A GINA, CBC, BMP, ADIFF #### [address] [address] #### GFR #### [address] [address] Sodium [Moles/Vol] 141 mmol/L Normal 136-145 [facility] ([place] Comment on above: Performed By: #### A GINA, CBC, BMP, ADIFF #### [address] [address] #### GFR #### [address] [address] Total Protein 7.1 G/dL Normal 6.4-8.2 [facility] ([place]) Comment on above: Performed By: #### A GINA, CBC, BMP, ADIFF #### [place] [address] #### GFR #### [place] [address] Urea nitrogen [Mass/Vol] 19 mg/dL High 7-18 [facility] ([place]) Comment on above: Performed By: #### A GINA, CBC, BMP, ADIFF #### [place] [address] #### GFR #### [place] [address] MYCOon 07-08-2020 Mycoplasma IgG Negative Normal [facility] ([place]) Comment on above: Result Comment: INTE RPRETATION OF MYCOPLASMA BY EIA (Effective 10/13/04): Negative No detectable antibodies to M. pneumoniae. Indicates absence of current or previous infection. Positive Reactive for antibodies to M. pneumoniae. Indicates a past or recent infection. Equivocal Equivocal for antibodies to M. pneumoniae. Repeat testing by an alternate method suggested. Performed By: #### A GINA, CBC, BMP, ADIFF #### [place] [address] #### GFR #### [place] [address] .Auto Diffon 07-03-2020 Basophil, Absolute 0.30 10 3/mcL High 0.00-0.19 [facility] ([place] Comment on above: Performed By: #### P BNP #### [place] [address] #### BMP, GFR #### [address] [address] Basophils/100 WBC (Bld) 1.4 % Normal 0.0-2.5 A [facility] ([place]) Comment on above: Performed By: #### P BNP #### [place] [address] #### BMP, GFR #### [place] [address] Eosinophil, Absolute 0.40 10 3/mcL Normal 0.00-0.40 A [facility] ([place]) Comment on above: Performed By: #### P BNP #### [place] [address] #### BMP, GFR #### [address] [address] Eosinophils/100 WBC (Bld) 2.0 % Normal 0.0-7.0 [facility] ([place]) Comment on above: Performed By: #### P BNP #### [place] [address] #### BMP, GFR #### [address] [address] Lymphocyte, Absolute 2.00 10 3/mcL Normal 0.77-3.85 A [facility] ([place]) Comment on above: Performed By: #### P BNP #### [place] [address] #### BMP, GFR #### [address] [address] Lymphocytes/100 WBC (Bld) 10.6 % Normal 10.0-50.0 [facility] ([place]) Comment on above: Performed By: #### P BNP #### [place] [address] #### BMP, GFR #### [address] [address] Monocyte, Absolute 1.50 10 3/mcL High 0.15-1.00 [facility] ([place]) Comment on above: Performed By: #### P BNP #### [place] [id number] #### BMP, GFR #### [address] [address] Monocytes/100 WBC (Bld) 8.3 % Normal 1.7-13.0 A [facility] ([place]) Comment on above: Performed By: #### P BNP #### [place] [address] #### BMP, GFR #### [address] [address] Neutrophils/100 WBC (Bld) 77.7 % Normal 37.0-80.0 [facility] ([place]) Comment on above: Performed By: #### P BNP #### [place] [address] [place], [place] [address] #### BMP, GFR #### [address] [address] .GFRon 07-03-2020 GFR 70 ml/min/1.73sqm Normal [facility] ([place]) Comment on above: Result Comment: GFR Population [...] meters Performed By: #### P BNP #### [place] [address] [place], [place] [address] #### BMP, GFR #### [address] [address] GFR Non- 57 ml/min/1.73sqm Normal [facility] ([place]) Comment on above: Result Comment: GFR Population [...] meters Performed By: #### P BNP #### [address] [address] #### BMP, GFR #### [address] [address] .NEUABSon 07-03-2020 Neutrophil, Absolute 14.50 10 3/mcL High 2.85-6.16 [facility] ([place]) Comment on above: Performed By: #### P BNP #### [address] [address] #### BMP, GFR #### [address] [address] BMPon 07-03-2020 BUN/Creatinine Ratio 22 ratio Normal 7-27 [facility] ([place]) Comment on above: Performed By: #### P BNP #### [place] [address] #### BMP, GFR #### [address] [address] Calcium [Mass/Vol] 8.9 mg/dL Normal 8.4-10.2 [facility] ([place]) Comment on above: Performed By: #### P BNP #### [address] [address] #### BMP, GFR #### [address] [address] Chloride [Moles/Vol] 102 mmol/L Normal 98-107 [facility] ([place] Comment on above: Performed By: #### P BNP #### [address] [address] #### BMP, GFR #### [address] [address] CO2 [Moles/Vol] 20 mmol/L Low 22-29 [facility] ([place]) Comment on above: Performed By: #### P BNP #### [address] [address] #### BMP, GFR #### [address] [address] Creatinine [Mass/Vol] 1.32 mg/dL High 0.70-1.30 [facility] ([place]) Comment on above: Performed By: #### P BNP #### [address] [address] #### BMP, GFR #### [address] [address] Electrolyte Balance 11.0 mEq/L Normal [facility] ([place]) Comment on above: Performed By: #### P BNP #### [address] [address] #### BMP, GFR #### [address] [address] Glucose [Mass/Vol] 118 mg/dL High 70-105 [facility] ([place]) Comment on above: Performed By: #### P BNP #### [place] [address] #### BMP, GFR #### [address] [address] Potassium [Moles/Vol] 4.4 mmol/L Normal 3.5-5.1 [facility] ([place]) Comment on above: Performed By: #### P BNP #### [address] [address] #### BMP, GFR #### [address] [address] Sodium [Moles/Vol] 133 mmol/L Low 136-145 [facility] ([place] Comment on above: Performed By: #### P BNP #### [address] [address] #### BMP, GFR #### [address] [address] Urea nitrogen [Mass/Vol] 29 mg/dL High 7-18 [facility] ([place]) Comment on above: Performed By: #### P BNP #### [address] [address] #### BMP, GFR #### [address] [address] CBCon 07-03-2020 Erythrocyte distribution width (RBC) [Ratio] 16.6 % High 11.5-14.5 [facility] ([place]) Comment on above: Performed By: #### P BNP #### [place] [address] #### BMP, GFR #### [place] [address] Hematocrit (Bld) [Volume fraction] 42.6 % Normal 42.0-52.0 [facility] ([place] Comment on above: Performed By: #### P BNP #### [place] [address] #### BMP, GFR #### [place] [address] Hgb 13.9 G/dL Low 14.0-18.0 [facility] ([place] Comment on above: Performed By: #### P BNP #### [place] [address] #### BMP, GFR #### [place] [address] MCH (RBC) [Entitic mass] 27.5 pg Normal 27.0-31.2 [facility] ([place] Comment on above: Performed By: #### P BNP #### [place] [address] #### BMP, GFR #### [place] [address] MCHC 32.5 G/dL Normal 31.8-35.4 [facility] ([place] Comment on above: Performed By: #### P BNP #### [place] [address] #### BMP, GFR #### [place] [address] MCV (RBC) [Entitic vol] 84.7 fL Normal 80.0-94.0 A [facility] ([place] Comment on above: Performed By: #### P BNP #### [place] [address] #### BMP, GFR #### [place] [address] Platelet 348 10 3/mcL Normal 130-400 [facility] ([place] Comment on above: Performed By: #### P BNP #### [place] [address] #### BMP, GFR #### [place] [address] Platelet mean volume (Bld) [Entitic vol] 8.3 fL Normal 7.4-10.4 [facility] ([place] Comment on above: Performed By: #### P BNP #### [place] [address] #### BMP, GFR #### [place] [address] RBC 5.04 10 6/mcL Normal 4.04-6.13 [facility] ([place] Comment on above: Performed By: #### P BNP #### [place] [address] #### BMP, GFR #### [place] [address] WBC 18.60 10 3/mcL High 4.60-10.80 [facility] ([place]) Comment on above: Performed By: #### P BNP #### [place] [address] #### BMP, GFR #### [place] [address] MYCOon 07-03-2020 Mycoplasma IgM Negative Normal [facility] ([place] Comment on above: Result Comment: INTE RPRETATION OF MYCOPLASMA BY EIA (Effective 10/13/04): Negative No detectable antibodies to M. pneumoniae. Indicates absence of current or previous infection. Positive Reactive for antibodies to M. pneumoniae. Indicates a past or recent infection. Equivocal Equivocal for antibodies to M. pneumoniae. Repeat testing by an alternate method suggested. Performed By: #### A GINA, CBC, BMP, ADIFF #### [address] [address] #### GFR #### [address] [address] .GFRon 07-02-2020 GFR 59 ml/min/1.73sqm Normal [facility] ([place] Comment on above: Result Comment: GFR Population [...] meters Performed By: #### P BNP #### [address] [address] #### BMP, GFR #### [address] [address] GFR Non- 48 ml/min/1.73sqm Normal [facility] ([place] Comment on above: Result Comment: GFR Population [...] meters Performed By: #### P BNP #### [address] [address] #### BMP, GFR #### [place] [address] .Manual Diffon 07-02-2020 Bands 3.0 % Normal 0.0-5.0 [facility] ([place] Comment on above: Performed By: #### P BNP #### [place] [address] #### BMP, GFR #### [place] [address] Basophil %, Manual 0.0 % Normal 0.0-2.5 [facility] ([place]) Comment on above: Performed By: #### P BNP #### [place] [address] #### BMP, GFR #### [place] [address] Basophil, Abs Manual 0.00 10 3/mcL Normal 0.00-0.19 A [facility] ([place]) Comment on above: Performed By: #### P BNP #### [place] [address] #### BMP, GFR #### [place] [address] Eosinophil %, Manual 7.0 % Normal 0.0-7.0 [facility] ([place] Comment on above: Performed By: #### P BNP #### [place] [address] #### BMP, GFR #### [place] [address] Eosinophil, Abs Manual 1.20 10 3/mcL High 0.00-0.40 [facility] ([place]) Comment on above: Performed By: #### P BNP #### [place] [address] #### BMP, GFR #### [place] [address] Lymphocyte %, Manual 18.0 % Normal 10.0-50.0 [facility] ([place] Comment on above: Performed By: #### P BNP #### [place] [address] #### BMP, GFR #### [address] [address] Lymphocyte, Abs Manual 3.10 10 3/mcL Normal 0.77-3.85 [facility] ([place]) Comment on above: Performed By: #### P BNP #### [place] [address] #### BMP, GFR #### [address] [address] Monocyte %, Manual 5.0 % Normal 1.7-13.0 [facility] ([place] Comment on above: Performed By: #### P BNP #### [place] [address] #### BMP, GFR #### [address] [address] Monocyte, Abs Manual 0.90 10 3/mcL Normal 0.15-1.00 A [facility] ([place]) Comment on above: Performed By: #### P BNP #### [place] [address] #### BMP, GFR #### [address] [address] Neutrophil %, Manual 67.0 % Normal 37.0-80.0 [facility] ([place] Comment on above: Performed By: #### P BNP #### [place] [address] #### BMP, GFR #### [address] [address] Neutrophil, Abs Manual 11.90 10 3/mcL High 2.85-6.16 [facility] ([place] Comment on above: Performed By: #### P BNP #### [place] [address] #### BMP, GFR #### [address] [address] .Morphon 07-02-2020 Anisocytosis Ql (Bld) Slight Normal [facility] ([place] Comment on above: Performed By: #### P BNP #### [place] [address] #### BMP, GFR #### [address] [address] Platelet Estimate Normal Normal [facility] ([place] Comment on above: Performed By: #### P BNP #### [place] [address] #### BMP, GFR #### [place] [address] CBCon 07-02-2020 Erythrocyte distribution width (RBC) [Ratio] 16.2 % High 11.5-14.5 [facility] ([place] Comment on above: Performed By: #### P BNP #### [place] [address] #### BMP, GFR #### [place] [address] Hematocrit (Bld) [Volume fraction] 42.2 % Normal 42.0-52.0 [facility] ([place] Comment on above: Performed By: #### P BNP #### [place] [address] #### BMP, GFR #### [place] [address] Hgb 13.8 G/dL Low 14.0-18.0 [facility] ([place] Comment on above: Performed By: #### P BNP #### [place] [address] #### BMP, GFR #### [place] [address] MCH (RBC) [Entitic mass] 27.8 pg Normal 27.0-31.2 [facility] ([place] Comment on above: Performed By: #### P BNP #### [place] [address] #### BMP, GFR #### [place] [address] MCHC 32.8 G/dL Normal 31.8-35.4 [facility] ([place] Comment on above: Performed By: #### P BNP #### [place] [address] #### BMP, GFR #### [place] [address] MCV (RBC) [Entitic vol] 84.7 fL Normal 80.0-94.0 A [facility] ([place] Comment on above: Performed By: #### P BNP #### [place] [address] #### BMP, GFR #### [place] [address] Platelet 319 10 3/mcL Normal 130-400 [facility] ([place] Comment on above: Performed By: #### P BNP #### [place] [address] #### BMP, GFR #### [place] [address] Platelet mean volume (Bld) [Entitic vol] 8.8 fL Normal 7.4-10.4 [facility] ([place] Comment on above: Performed By: #### P BNP #### [place] [address] #### BMP, GFR #### [place] [address] RBC 4.98 10 6/mcL Normal 4.04-6.13 [facility] ([place] Comment on above: Performed By: #### P BNP #### [place] [address] #### BMP, GFR #### [place] [address] WBC 17.00 10 3/mcL High 4.60-10.80 [facility] ([place] Comment on above: Performed By: #### P BNP #### [place] [id number] #### BMP, GFR #### [place] [address] [id number] 07-02-2020 Date of Onset [id number] Invalid Interpretation Code [facility] ([place] Comment on above: Performed By: #### P BNP #### [address] [address] #### BMP, GFR #### [facility] [address] [place] [address] Employed in Healthcare No [facility] ([place] Comment on above: Performed By: #### P BNP #### [address] [address] #### BMP, GFR #### [facility] [address] [place] [address] First Test Unknown [facility] ([place] Comment on above: Performed By: #### P BNP #### [address] [address] #### BMP, GFR #### [facility] [address] [place] [address] Hospitalized No [facility] ([place] Comment on above: Performed By: #### P BNP #### [address] [address] #### BMP, GFR #### [facility] [address] [place] [address] ICU No [facility] ([place] Comment on above: Performed By: #### P BNP #### [address] [address] #### BMP, GFR #### [facility] [address] [place] [address] Not [facility] ([place] Comment on above: Performed By: #### P BNP #### [address] [address] #### BMP, GFR #### [facility] [address] [place] [address] Resides in Congregate Care Setting No [facility] ([place] Comment on above: Performed By: #### P BNP #### [address] [address] #### BMP, GFR #### [place] [address] SARS-CoV-2 (COVID-19) RNA ZANDER+probe Ql (Unsp spec) Negative Normal Negative [facility] ([place] Comment on above: Performed By: #### P BNP #### [address] [address] #### BMP, GFR #### [place] [address] SARS-CoV-2 (COVID-19) RNA ZANDER+probe Ql (Unsp spec) Normal [facility] ([place] Comment on above: Result Comment: Nega tive [...] Int Performed By: #### P BNP #### [address] [address] #### BMP, GFR #### [place] [address] Symptomatic as Defined by CDC No Normal [facility] ([place] Comment on above: Performed By: #### P BNP #### [address] [address] #### BMP, GFR #### [address] 07-02-2020 Bili Indirect 0.3 mg/dL Normal [facility] ([place]) Comment on above: Result Comment: Calc ulated by Rule Performed By: #### P BNP #### [place] [address] #### BMP, GFR #### [address] [address] Albumin/Globulin [Mass ratio] 0.7 {ratio} Low 1.1-2.5 [facility] ([place] Comment on above: Performed By: #### P BNP #### [place] [address] #### BMP, GFR #### [address] [address] ALP [Catalytic activity/Vol] 162 U/L High 40-135 [facility] ([place]) Comment on above: Performed By: #### P BNP #### [place] [address] #### BMP, GFR #### [address] [address] ALT [Catalytic activity/Vol] 85 U/L High 16-63 [facility] ([place] Comment on above: Performed By: #### P BNP #### [place] [address] #### BMP, GFR #### [address] [address] AST [Catalytic activity/Vol] 50 U/L High 10-40 [facility] ([place] Comment on above: Performed By: #### P BNP #### [place] [address] #### BMP, GFR #### [address] [address] Bili Direct 0.1 mg/dL Normal 0.0-0.2 [facility] ([place]) Comment on above: Result Comment: Use of this assay is not recommended for patients undergoing treatment with eltrombopag due to the potential for falsely elevated results. Performed By: #### P BNP #### [place] [address] #### BMP, GFR #### [place] [address] Bili Total 0.4 mg/dL Normal 0.2-1.0 [facility] ([place] Comment on above: Result Comment: Use of this assay is not recommended for patients undergoing treatment with eltrombopag due to the potential for falsely elevated results. Performed By: #### P BNP #### [place] [address] #### BMP, GFR #### [place] [address] Globulin 4.6 G/dL Normal [facility] ([place] Comment on above: Performed By: #### P BNP #### [place] [address] #### BMP, GFR #### [place] [address] Total Protein 7.8 G/dL Normal 6.4-8.2 [facility] ([place] Comment on above: Performed By: #### P BNP #### [place] [address] #### BMP, GFR #### [place] [address] MGon 07-02-2020 Magnesium [Mass/Vol] 1.8 mg/dL Normal 1.8-2.4 [facility] ([place] Comment on above: Performed By: #### P BNP #### [place] [address] #### BMP, GFR #### [place] [address] RFPon 07-02-2020 Albumin Level 3.2 G/dL Low 3.5-5.0 [facility] ([place] Comment on above: Performed By: #### P BNP #### [place] [id number] #### BMP, GFR #### [place] [address] BUN/Creatinine Ratio 25 ratio Normal 7-27 [facility] ([place] Comment on above: Performed By: #### P BNP #### [address] [address] #### BMP, GFR #### [address] [address] Calcium [Mass/Vol] 8.8 mg/dL Normal 8.4-10.2 [facility] ([place]) Comment on above: Performed By: #### P BNP #### [place] [id number] #### BMP, GFR #### [address] [address] Chloride [Moles/Vol] 96 mmol/L Low 98-107 [facility] ([place] Comment on above: Performed By: #### P BNP #### [address] [address] #### BMP, GFR #### [address] [address] CO2 [Moles/Vol] 20 mmol/L Low 22-29 [facility] ([place] Comment on above: Performed By: #### P BNP #### [address] [address] #### BMP, GFR #### [address] [address] Creatinine [Mass/Vol] 1.53 mg/dL High 0.70-1.30 [facility] ([place] Comment on above: Performed By: #### P BNP #### [address] [address] #### BMP, GFR #### [address] [address] Electrolyte Balance 8.0 mEq/L Normal [facility] ([place] Comment on above: Performed By: #### P BNP #### [address] [address] #### BMP, GFR #### [address] [address] Glucose [Mass/Vol] 115 mg/dL High 70-105 [facility] ([place] Comment on above: Performed By: #### P BNP #### [place] [address] #### BMP, GFR #### [address] [address] Phosphate [Mass/Vol] 3.2 mg/dL Normal 2.7-4.5 [facility] ([place] Comment on above: Performed By: #### P BNP #### [place] [address] #### BMP, GFR #### [address] [address] Potassium [Moles/Vol] 3.9 mmol/L Normal 3.5-5.1 [facility] ([place] Comment on above: Performed By: #### P BNP #### [place] [address] #### BMP, GFR #### [place] [address] Sodium [Moles/Vol] 124 mmol/L Low 136-145 [facility] ([place] Comment on above: Performed By: #### P BNP #### [place] [address] #### BMP, GFR #### [address] [address] Urea nitrogen [Mass/Vol] 39 mg/dL High 7-18 [facility] ([place] Comment on above: Performed By: #### P BNP #### [place] [address] #### BMP, GFR #### [address] [address] .Auto Diffon 07-01-2020 Basophil, Absolute 0.10 10 3/mcL Normal 0.00-0.19 [facility] ([place] Comment on above: Performed By: #### A GINA, CBC, BMP, ADIFF #### [place] [address] #### GFR #### [address] [address] Basophils/100 WBC (Bld) 0.7 % Normal 0.0-2.5 A [facility] ([place] Comment on above: Performed By: #### A GINA, CBC, BMP, ADIFF #### [address] [address] #### GFR #### [address] [address] Eosinophil, Absolute 0.50 10 3/mcL High 0.00-0.40 A [facility] ([place]) Comment on above: Performed By: #### A GINA, CBC, BMP, ADIFF #### [place] [address] #### GFR #### [address] [address] Eosinophils/100 WBC (Bld) 3.0 % Normal 0.0-7.0 [facility] ([place] Comment on above: Performed By: #### A GINA, CBC, BMP, ADIFF #### [address] [address] #### GFR #### [address] [address] Lymphocyte, Absolute 1.60 10 3/mcL Normal 0.77-3.85 A [facility] ([place] Comment on above: Performed By: #### A GINA, CBC, BMP, ADIFF #### [place] [address] #### GFR #### [address] [address] Lymphocytes/100 WBC (Bld) 9.1 % Low 10.0-50.0 [facility] ([place] Comment on above: Performed By: #### A GINA, CBC, BMP, ADIFF #### [place] [address] #### GFR #### [address] [address] Monocyte, Absolute 1.40 10 3/mcL High 0.15-1.00 [facility] ([place] Comment on above: Performed By: #### A GINA, CBC, BMP, ADIFF #### [address] [address] #### GFR #### [address] [address] Monocytes/100 WBC (Bld) 8.0 % Normal 1.7-13.0 A [facility] ([place] Comment on above: Performed By: #### A GINA, CBC, BMP, ADIFF #### [address] [address] #### GFR #### [address] [address] Neutrophils/100 WBC (Bld) 79.2 % Normal 37.0-80.0 [facility] ([place] Comment on above: Performed By: #### A GINA, CBC, BMP, ADIFF #### [address] [address] #### GFR #### [address] [address] .GFRon 07-01-2020 GFR Non- 30 ml/min/1.73sqm Normal [facility] ([place] Comment on above: Result Comment: GFR Population [...] meters Performed By: #### P SA #### [address] [address] GFR 36 ml/min/1.73sqm Normal [facility] ([place]) Comment on above: Result Comment: GFR Population [...] meters Performed By: #### P SA #### [place] [id number] .NEUABSon 07-01-2020 Neutrophil, Absolute 14.00 10 3/mcL High 2.85-6.16 [facility] ([place] Comment on above: Performed By: #### P SA #### [place] [address] .Urinalysis Microscopic (AO) on 07-01-2020 UA Coarse Granular Casts 0-5 Abnormal [facility] ([place] Comment on above: Performed By: #### A GINA, CBC, BMP, ADIFF #### [place] [address] #### GFR #### [address] [address] UA RBC None Seen Normal None Seen [facility] ([place] Comment on above: Performed By: #### A GINA, CBC, BMP, ADIFF #### [place] [address] #### GFR #### [address] [address] UA Squam Epithelial 0-5 Abnormal None Seen [facility] ([place] Comment on above: Performed By: #### A GINA, CBC, BMP, ADIFF #### [place] [address] #### GFR #### [address] [address] UA WBC 0-5 Abnormal None Seen [facility] ([place] Comment on above: Performed By: #### A GINA, CBC, BMP, ADIFF #### [address] [address] #### GFR #### [address] [address] CBCon 07-01-2020 Erythrocyte distribution width (RBC) [Ratio] 16.0 % High 11.5-14.5 [facility] ([place] Comment on above: Performed By: #### A GINA, CBC, BMP, ADIFF #### [address] [address] #### GFR #### [place] [address] Hematocrit (Bld) [Volume fraction] 47.1 % Normal 42.0-52.0 [facility] ([place] Comment on above: Performed By: #### A GINA, CBC, BMP, ADIFF #### [place] [address] #### GFR #### [place] [address] Hgb 15.3 G/dL Normal 14.0-18.0 [facility] ([place] Comment on above: Performed By: #### A GINA, CBC, BMP, ADIFF #### [place] [address] #### GFR #### [place] [address] MCH (RBC) [Entitic mass] 27.4 pg Normal 27.0-31.2 [facility] ([place] Comment on above: Performed By: #### A GINA, CBC, BMP, ADIFF #### [place] [address] #### GFR #### [place] [address] MCHC 32.4 G/dL Normal 31.8-35.4 [facility] ([place] Comment on above: Performed By: #### A GINA, CBC, BMP, ADIFF #### [address] [address] #### GFR #### [address] [address] MCV (RBC) [Entitic vol] 84.5 fL Normal 80.0-94.0 A [facility] ([place] Comment on above: Performed By: #### A GINA, CBC, BMP, ADIFF #### [place] [address] #### GFR #### [place] [address] Platelet 383 10 3/mcL Normal 130-400 [facility] ([place] Comment on above: Performed By: #### A GINA, CBC, BMP, ADIFF #### [place] [address] #### GFR #### [place] [address] Platelet mean volume (Bld) [Entitic vol] 8.2 fL Normal 7.4-10.4 [facility] ([place] Comment on above: Performed By: #### A GINA, CBC, BMP, ADIFF #### [place] [address] #### GFR #### [place] [address] RBC 5.57 10 6/mcL Normal 4.04-6.13 [facility] ([place] Comment on above: Performed By: #### A GINA, CBC, BMP, ADIFF #### [place] [id number] #### GFR #### [place] [address] WBC 17.70 10 3/mcL High 4.60-10.80 [facility] ([place] Comment on above: Performed By: #### A GINA, CBC, BMP, ADIFF #### [place] [address] #### GFR #### [address] [place] [id number] [place] [address] 07-01-2020 Albumin Level 3.9 G/dL Normal 3.5-5.0 [facility] ([place] Comment on above: Performed By: #### P SA #### [address] [address] Albumin/Globulin [Mass ratio] 0.8 {ratio} Low 1.1-2.5 [facility] ([place] Comment on above: Performed By: #### P SA #### [address] [address] ALP [Catalytic activity/Vol] 185 U/L High 40-135 [facility] ([place] Comment on above: Performed By: #### P SA #### [address] [address] ALT [Catalytic activity/Vol] 94 U/L High 16-63 [facility] ([place] Comment on above: Performed By: #### P SA #### [address] [address] AST [Catalytic activity/Vol] 60 U/L High 10-40 [facility] ([place] Comment on above: Performed By: #### P SA #### [address] [address] Bili Total 0.4 mg/dL Normal 0.2-1.0 [facility] ([place] Comment on above: Result Comment: Use of this assay is not recommended for patients undergoing treatment with eltrombopag due to the potential for falsely elevated results. Performed By: #### P SA #### [address] [address] BUN/Creatinine Ratio 21 ratio Normal 7-27 [facility] ([place] Comment on above: Performed By: #### P SA #### [address] [address] Calcium [Mass/Vol] 9.3 mg/dL Normal 8.4-10.2 [facility] ([place] Comment on above: Performed By: #### P SA #### [address] [address] Chloride [Moles/Vol] 99 mmol/L Normal 98-107 [facility] ([place] Comment on above: Performed By: #### P SA #### [address] [address] CO2 [Moles/Vol] 19 mmol/L Low 22-29 [facility] ([place] Comment on above: Performed By: #### P SA #### [address] [address] Creatinine [Mass/Vol] 2.31 mg/dL High 0.70-1.30 [facility] [place] Comment on above: Performed By: #### P SA #### [address] [address] Electrolyte Balance 13.0 mEq/L Normal [facility] ([place] Comment on above: Performed By: #### P SA #### [address] [address] Globulin 5.1 G/dL Normal [facility] ([place] Comment on above: Performed By: #### P SA #### [address] [address] Glucose [Mass/Vol] 135 mg/dL High 70-105 [facility] ([place] Comment on above: Performed By: #### P SA #### [address] [address] Potassium [Moles/Vol] 4.6 mmol/L Normal 3.5-5.1 [facility] [place] Comment on above: Performed By: #### P SA #### [address] [address] Sodium [Moles/Vol] 131 mmol/L Low 136-145 [facility] ([place] Comment on above: Performed By: #### P SA #### [address] [address] Total Protein 9.0 G/dL High 6.4-8.2 [facility] ([place] Comment on above: Performed By: #### P SA #### [address] [address] Urea nitrogen [Mass/Vol] 48 mg/dL High 7-18 [facility] ([place] Comment on above: Performed By: #### P SA #### [address] [address] LIPon 07-01-2020 Lipase Level 173 U/L Normal 73-393 [facility] ([place] Comment on above: Performed By: #### P SA #### [address] [address] TROPon 07-01-2020 Troponin I.cardiac [Mass/Vol] ng/mL Normal 0.000-0.04 0 [facility] ([place] Comment on above: Result Comment: Trop onin I reference range: 0.00-0.040 ng/mL Negative and non-diagnostic. >0.040 ng/mL Consistent with cardiac damage, increased clinical risk and possibility of myocardial infarction. Serial measurements, a rise & fall in test results, clinical history, appropriate symptoms and/or ECG changes may help assess possibility of ID. *Other non-acute coronary syndrome conditions such as CHF, myocarditis, pulmonary emboli, sepsis and cardiac surgery could result in myocardial damage and increased troponin levels. Performed By: #### P SA #### [address] [address] UAon 07-01-2020 Color (U) Yellow Normal [facility] ([place] Comment on above: Performed By: #### A GINA, CBC, BMP, ADIFF #### [address] [address] #### GFR #### [address] [address] Glucose (U) [Mass/Vol] Negative Normal Negative [facility] ([place] Comment on above: Performed By: #### A GINA, CBC, BMP, ADIFF #### [address] [address] #### GFR #### [address] [address] Ketones Ql (U) Trace Abnormal Negative [facility] ([place] Comment on above: Performed By: #### A GINA, CBC, BMP, ADIFF #### [address] [address] #### GFR #### [address] [address] UA Appear Clear Normal Clear [facility] ([place] Comment on above: Performed By: #### A GINA, CBC, BMP, ADIFF #### [address] [address] #### GFR #### [address] [address] UA Bili Small Abnormal Negative [facility] ([place] Comment on above: Performed By: #### A GINA, CBC, BMP, ADIFF #### [address] [address] #### GFR #### [address] [address] UA Blood Trace Abnormal Negative [facility] ([place] Comment on above: Performed By: #### A GINA, CBC, BMP, ADIFF #### [address] [address] #### GFR #### [address] [address] UA Leuk Est Negative Normal Negative [facility] ([place] Comment on above: Performed By: #### A GINA, CBC, BMP, ADIFF #### [address] [address] #### GFR #### [address] [address] UA Nitrite Negative Normal Negative [facility] ([place] Comment on above: Performed By: #### A GINA, CBC, BMP, ADIFF #### [address] [address] #### GFR #### [address] [address] UA pH 5.0 Normal 5.0 - 8.0 [facility] ([place] Comment on above: Performed By: #### A GINA, CBC, BMP, ADIFF #### [place] [address] #### GFR #### [place] [address] UA Protein 100 mg/dL Abnormal Negative [facility] ([place] Comment on above: Performed By: #### A GINA, CBC, BMP, ADIFF #### [place] [address] #### GFR #### [place] [address] UA Spec Grav >=1.030 Abnormal 1.015-1.02 5 [facility] ([place] Comment on above: Performed By: #### A GINA, CBC, BMP, ADIFF #### [place] [address] #### GFR #### [place] [address] UA Specimen Type Clean Catch Normal [facility] ([place] Comment on above: Performed By: #### A GIAN, CBC, BMP, ADIFF #### [place] [address] #### GFR #### [place] [address] UA Urobilinogen 0.2 E.U./dL Normal 0.2-1.0 [facility] ([place] Comment on above: Performed By: #### A GINA, CBC, BMP, ADIFF #### [place] [address] #### GFR #### [place] [address] XR CHEST 2 VIEWSon 0 XR CHEST [...] Sign Date: 07/01/2020 9:36:26 PM Ordering Provider:[facility] ([place]) Vital Signs Date Time Vital Sign Value Performing Clinician Facility 05-27-2025 08:03-0400 Body height 190.[address] Jose Ramachandran DO Work Phone: 2(194)443-604893 [place] [address] 05-27-2025 08:03-0400 Body mass index (BMI) [Ratio] 25.9 kg/m2 Dr. Jose Ramachandran DO Work Phone: 3(630)907-694808 [address] 05-27-2025 08:03-0400 Body temperature 98.2 [degF] Dr. Jose Ramachandran DO Work Phone: 5(682)191-490408 [address] 05-27-2025 08:03-0400 Body weight [address] Jose Ramachandran DO Work Phone: 0(050)563-025608 [address] 05-27-2025 08:03-0400 Diastolic blood pressure 58 mm[Hg] Dr. Jose Ramachandran DO Work Phone: 1(826)849-600408 [address] 05-27-2025 08:03-0400 Heart rate 82 /min Dr. Jose Ramachandran DO Work Phone: 8(005)338-493593 [place] [address] 05-27-2025 08:03-0400 Respiratory rate 18 /min Dr. Jose Ramachandran DO Work Phone: [facility] 05-27-2025 08:03-0400 SaO2% (BldA) [Mass fraction] 100 % Dr. Jose Ramachandran DO Work Phone: [facility] 05-27-2025 08:03-0400 Systolic blood pressure 94 mm[Hg] Dr. Jose Ramachandran DO Work Phone: [facility] 05-15-2025 09:19-0400 Body height 190.[address] Jose Ramachandran DO Work Phone: 1(681)201-231808 [address] 05-15-2025 09:19-0400 Body mass index (BMI) [Ratio] 25.9 kg/m2 Dr. Jose Ramachandran DO Work Phone: 3(633)419-478608 [address] 05-15-2025 09:19-0400 Body temperature 97.8 [degF] Dr. Jose Ramachandran DO Work Phone: 4(222)270-293308 [address] 05-15-2025 09:19-0400 Body weight 94.[address] Jose Ramachandran DO Work Phone: 1(297)062-084008 [address] 05-15-2025 09:19-0400 Diastolic blood pressure 54 mm[Hg] Dr. Jose Ramachandran DO Work Phone: 2(595)895-509662 [place] [address] 05-15-2025 09:19-0400 Heart rate 94 /min Dr. Jose Ramachandran DO Work Phone: 5(356)616-200708 [address] 05-15-2025 09:19-0400 Respiratory rate 18 /min Dr. Jose Ramachandran DO Work Phone: 7(788)769-051962 [place] [address] 05-15-2025 09:19-0400 SaO2% (BldA) [Mass fraction] 97 % Dr. Jose Ramachandran DO Work Phone: 0(391)964-296708 [address] 05-15-2025 09:19-0400 Systolic blood pressure 88 mm[Hg] Dr. Jose Ramachandran DO Work Phone: 1(271)062-289008 [address] 05-14-2025 11:03-0400 Body temperature 96.3 [degF] Dr. Jose Ramachandran DO Work Phone: 2(104)142-866608 [address] 05-14-2025 11:03-0400 Diastolic blood pressure 52 mm[Hg] Dr. Jose Ramachandran DO Work Phone: 0(619)795-566508 [address] 05-14-2025 11:03-0400 Heart rate 82 /min Dr. Jose Ramachandran DO Work Phone: 5(064)775-732408 [address] 05-14-2025 11:03-0400 Respiratory rate 16 /min Dr. Jose Ramachandran DO Work Phone: [facility] 05-14-2025 11:03-0400 SaO2% (BldA) [Mass fraction] 98 % Dr. Jose Ramachandran DO Work Phone: [facility] 05-14-2025 11:03-0400 Systolic blood pressure 103 mm[Hg] Dr. Jose Ramachandran DO Work Phone: [facility] 05-12-2025 07:58-0400 Body height 190.[address] Jose Ramachandran DO Work Phone: 8(283)646-081808 [address] 05-12-2025 07:58-0400 Body mass index (BMI) [Ratio] 25.7 kg/m2 Dr. Jose Ramachandran DO Work Phone: 7(944)213-709308 [address] 05-12-2025 07:58-0400 Body temperature 98.4 [degF] Dr. Jose Ramachandran DO Work Phone: 0(661)634-614008 [address] 05-12-2025 07:58-0400 Body weight 93.[address] Jose Ramachandran DO Work Phone: 4(123)217-575808 [address] 05-12-2025 07:58-0400 Diastolic blood pressure 63 mm[Hg] Dr. Jose Ramachandran DO Work Phone: 6(191)552-178408 [address] 05-12-2025 07:58-0400 Heart rate 82 /min Dr. Jose Ramachandran DO Work Phone: [facility] 05-12-2025 07:58-0400 Respiratory rate 16 /min Dr. Jose Ramachandran DO Work Phone: 1(948)377-886708 [address] 05-12-2025 07:58-0400 SaO2% (BldA) [Mass fraction] 99 % Dr. Jose Ramachandran DO Work Phone: [facility] 05-12-2025 07:58-0400 Systolic blood pressure 100 mm[Hg] Dr. Jose Ramachandran DO Work Phone: 7(960)312-643808 [address] 05-01-2025 14:35-0400 Diastolic blood pressure 57 mm[Hg] Dr. Jose Ramachandran DO Work Phone: 5(189)868-093762 [place] [address] 05-01-2025 14:35-0400 Heart rate 83 /min Dr. Jose Ramachandran DO Work Phone: 4(723)554-397562 [place] [address] 05-01-2025 14:35-0400 Systolic blood pressure 84 mm[Hg] Dr. Jose Ramachandran DO Work Phone: 7(492)460-609962 [place] [address] 04-30-2025 21:45-0400 Body temperature 97.6 [degF] Dr. Jose Ramachandran DO Work Phone: 5(386)302-311262 [place] [address] 04-30-2025 20:44-0400 Body height 190.[address] Jose Ramachandran DO Work Phone: 1(056)370-355262 [place] [address] 04-29-2025 09:52-0400 Diastolic blood pressure 58 mm[Hg] Dr. Jose Ramachandran DO Work Phone: 8(403)223-972662 [place] [address] 04-29-2025 09:52-0400 Systolic blood pressure 100 mm[Hg] Dr. Jose Ramachandran DO Work Phone: 7(457)751-990962 [place] [address] 04-29-2025 09:30-0400 Body height 190.[address] Jose Ramachandran DO Work Phone: 8(470)405-402662 [place] [address] 04-29-2025 09:30-0400 Body mass index (BMI) [Ratio] 25.2 kg/m2 Dr. Jose Ramachandran DO Work Phone: 6(177)268-924162 [place] [address] 04-29-2025 09:30-0400 Body temperature 98.2 [degF] Dr. Jose Ramachandran DO Work Phone: 3(705)488-508062 [place] [address] 04-29-2025 09:30-0400 Body weight 91.[address] Jose Ramachandran DO Work Phone: 3(380)767-976862 [place] [address] 04-29-2025 09:30-0400 Heart rate 67 /min Dr. Jose Ramachandran DO Work Phone: [facility] 04-29-2025 09:30-0400 Respiratory rate 16 /min Dr. Jose Ramachandran DO Work Phone: [facility] 04-29-2025 09:30-0400 SaO2% (BldA) [Mass fraction] 98 % Dr. Jose Ramachandran DO Work Phone: 1(196)445-179108 [address] 04-21-2025 11:51-0400 Diastolic blood pressure 55 mm[Hg] Dr. Jose Ramachandran DO Work Phone: 2(121)615-498108 [address] 04-21-2025 11:51-0400 Heart rate 82 /min Dr. Jose Ramachandran DO Work Phone: 5(170)748-762408 [address] 04-21-2025 11:51-0400 Systolic blood pressure 91 mm[Hg] Dr. Jose Ramachandran DO Work Phone: 5(211)211-535308 [address] 04-21-2025 08:47-0400 Body height 190.[address] Jose Ramachandran DO Work Phone: 9(306)860-703208 [address] 04-21-2025 08:47-0400 Body mass index (BMI) [Ratio] 25.6 kg/m2 Dr. Jose Ramachandran DO Work Phone: 9(495)781-837308 [address] 04-21-2025 08:47-0400 Body temperature 98.8 [degF] Dr. Jose Ramachandran DO Work Phone: 9(246)112-412208 [address] 04-21-2025 08:47-0400 Body weight 93.[address] Jose Ramachandran DO Work Phone: 9(924)397-814908 [address] 04-21-2025 08:47-0400 Diastolic blood pressure 57 mm[Hg] Dr. Jose Ramachandran DO Work Phone: 8(516)692-235308 [address] 04-21-2025 08:47-0400 Heart rate 82 /min Dr. Jose Ramachandran DO Work Phone: 4(998)208-232008 [address] 04-21-2025 08:47-0400 Respiratory rate 18 /min Dr. Jose Ramachandran DO Work Phone: [facility] 04-21-2025 08:47-0400 SaO2% (BldA) [Mass fraction] 96 % Dr. Jose Ramachandran DO Work Phone: 7(594)801-544393 [place] [address] 04-21-2025 08:47-0400 Systolic blood pressure 88 mm[Hg] Dr. Jose Ramachandran DO Work Phone: 4(848)313-230108 [address] 04-17-2025 11:41-0400 Body temperature 96.3 [degF] Dr. Jose Ramachandran DO Work Phone: 7(781)543-384108 [address] 04-17-2025 11:41-0400 Diastolic blood pressure 42 mm[Hg] Dr. Jose Ramachandran DO Work Phone: 8(250)474-538508 [address] 04-17-2025 11:41-0400 Heart rate 67 /min Dr. Jose Ramachandran DO Work Phone: 7(314)849-787962 [place] [address] 04-17-2025 11:41-0400 Respiratory rate 16 /min Dr. Jose Ramachandran DO Work Phone: 3(659)318-601562 [place] [address] 04-17-2025 11:41-0400 SaO2% (BldA) [Mass fraction] 95 % Dr. Jose Ramachandrna DO Work Phone: 6(619)539-488108 [address] 04-17-2025 11:41-0400 Systolic blood pressure 99 mm[Hg] Dr. Jose Ramachandran DO Work Phone: 3(119)439-996408 [address] 04-15-2025 09:41-0400 Body height 190.[address] Jose Ramachandran DO Work Phone: 5(515)564-474708 [address] 04-15-2025 09:41-0400 Body mass index (BMI) [Ratio] 25.6 kg/m2 Dr. Jose Ramachandran DO Work Phone: 2(704)030-598608 [address] 04-15-2025 09:41-0400 Body temperature 97.2 [degF] Dr. Jose Ramachandran DO Work Phone: 1(051)982-551608 [address] 04-15-2025 09:41-0400 Body weight 93.[address] Jose Ramachandran DO Work Phone: [facility] 04-15-2025 09:41-0400 Diastolic blood pressure 65 mm[Hg] Dr. Jose Ramachandran DO Work Phone: [facility] 04-15-2025 09:41-0400 Heart rate 90 /min Dr. Jose Ramachandran DO Work Phone: 8(989)904-052708 [address] 04-15-2025 09:41-0400 Respiratory rate 16 /min Dr. Jose Ramachandran DO Work Phone: 3(964)719-204108 [address] 04-15-2025 09:41-0400 SaO2% (BldA) [Mass fraction] 97 % Dr. Jose Ramachandran DO Work Phone: 0(594)101-867008 [address] 04-15-2025 09:41-0400 Systolic blood pressure 102 mm[Hg] Dr. Jose Ramachandran DO Work Phone: 5(236)623-895708 [address] 04-15-2025 07:52-0400 Body temperature 96.7 [degF] Dr. Jose Ramachandran DO Work Phone: 5(747)410-018508 [address] 04-15-2025 07:52-0400 Diastolic blood pressure 65 mm[Hg] Dr. Jose Ramachandran DO Work Phone: [facility] 04-15-2025 07:52-0400 Heart rate 78 /min Dr. Jose Ramachandran DO Work Phone: [facility] 04-15-2025 07:52-0400 Respiratory rate 16 /min Dr. Jose Ramachandran DO Work Phone: [facility] 04-15-2025 07:52-0400 SaO2% (BldA) [Mass fraction] 98 % Dr. Jose Ramachandran DO Work Phone: [facility] 04-15-2025 07:52-0400 Systolic blood pressure 101 mm[Hg] Dr. Jose Raamchandran DO Work Phone: [facility] 04-07-2025 09:41-0400 Body height 190.[address] Jose Ramachandran DO Work Phone: [facility] 04-07-2025 09:41-0400 Body mass index (BMI) [Ratio] 24.7 kg/m2 Dr. Jose Ramachandran DO Work Phone: [facility] 04-07-2025 09:41-0400 Body weight 89.[address] Jose Ramachandran DO Work Phone: [facility] 04-07-2025 09:41-0400 Diastolic blood pressure 69 mm[Hg] Dr. Jose Ramachandran DO Work Phone: 4(788)763-526308 [address] 04-07-2025 09:41-0400 Heart rate 78 /min Dr. Jose Ramachandran DO Work Phone: 2(921)914-536908 [address] 04-07-2025 09:41-0400 Respiratory rate 16 /min Dr. Jose Ramachandran DO Work Phone: [facility] 04-07-2025 09:41-0400 Systolic blood pressure 106 mm[Hg] Dr. Jose Ramachandran DO Work Phone: [facility] 04-01-2025 08:53-0400 Body temperature 97 [degF] Dr. Jose Ramachandran DO Work Phone: [facility] 04-01-2025 08:53-0400 Diastolic blood pressure 61 mm[Hg] Dr. Jose Ramachandran DO Work Phone: [facility] 04-01-2025 08:53-0400 Heart rate 85 /min Dr. Jose Ramachandran DO Work Phone: [facility] 04-01-2025 08:53-0400 Respiratory rate 16 /min Dr. Jose Ramachandran DO Work Phone: [facility] 04-01-2025 08:53-0400 SaO2% (BldA) [Mass fraction] 96 % Dr. Jose Ramachandran DO Work Phone: [facility] 04-01-2025 08:53-0400 Systolic blood pressure 101 mm[Hg] Dr. Jose Ramachandran DO Work Phone: 5(690)681-755093 [place] [address] 03-31-2025 09:11-0400 Body height 190.[address] Jose Ramachandran DO Work Phone: 3(075)632-254762 [place] [address] 03-31-2025 09:09-0400 Body mass index (BMI) [Ratio] 25.4 kg/m2 Dr. Jose Ramachandran DO Work Phone: 4(163)851-420508 [address] 03-31-2025 09:09-0400 Body temperature 98.8 [degF] Dr. Jose Ramachandran DO Work Phone: 9(155)577-972962 [place] [address] 03-31-2025 09:09-0400 Body weight 92.[address] Jose Ramachandran DO Work Phone: 6(580)571-525162 [place] [address] 03-31-2025 09:09-0400 Diastolic blood pressure 52 mm[Hg] Dr. Jose Ramachandran DO Work Phone: 0(243)949-510762 [place] [address] 03-31-2025 09:09-0400 Heart rate 82 /min Dr. Jose Ramachandran DO Work Phone: 3(456)406-221562 [place] [address] 03-31-2025 09:09-0400 Respiratory rate 16 /min Dr. Jose Ramachandran DO Work Phone: 4(118)333-221162 [place] [address] 03-31-2025 09:09-0400 SaO2% (BldA) [Mass fraction] 98 % Dr. Jose Ramachandran DO Work Phone: 1(898)282-699262 [place] [address] 03-31-2025 09:09-0400 Systolic blood pressure 91 mm[Hg] Dr. Jose Ramachandran DO Work Phone: 1(509)142-712462 [place] [address] 03-25-2025 12:40-0400 Diastolic blood pressure 64 mm[Hg] Dr. Jose Ramachandran DO Work Phone: 7(888)522-503562 [place] [address] 03-25-2025 12:40-0400 Heart rate 81 /min Dr. Jose Ramachandran DO Work Phone: 3(100)326-632662 [place] [address] 03-25-2025 12:40-0400 Systolic blood pressure 100 mm[Hg] Dr. Jose Ramachandran DO Work Phone: [facility] 03-25-2025 09:59-0400 Body height 190.[address] Mark Isaacs DO Work Phone: 9(974)411-465639 [place] [address] 03-25-2025 09:59-0400 Body mass index (BMI) [Ratio] 25.4 kg/m2 Dr. Mark Isaacs DO Work Phone: 5(864)242-460739 [place] [address] 03-25-2025 09:59-0400 Body temperature 98.7 [degF] Dr. Mark Isaacs DO Work Phone: 1(656)042-120039 [place] [address] 03-25-2025 09:59-0400 Body weight 92.[address] Mark Isaacs DO Work Phone: 7(575)834-808339 [place] [address] 03-25-2025 09:59-0400 Diastolic blood pressure 75 mm[Hg] Dr. Mark Isaacs DO Work Phone: 2(027)667-193539 [place] [address] 03-25-2025 09:59-0400 Heart rate 110 /min Dr. Mark Isaacs DO Work Phone: 0(451)424-773939 [place] [address] 03-25-2025 09:59-0400 Respiratory rate 18 /min Dr. Mark Isaacs DO Work Phone: 9(950)270-105139 [place] [address] 03-25-2025 09:59-0400 SaO2% (BldA) [Mass fraction] 98 % Dr. Mark Isaacs DO Work Phone: 3(479)646-647739 [place] [address] 03-25-2025 09:59-0400 Systolic blood pressure 112 mm[Hg] Dr. Mark Isaacs DO Work Phone: 1(919)502-514139 [place] [address] 03-18-2025 09:14-0400 Body height 190.[address] Mark Isaacs DO Work Phone: 5(340)666-701839 [place] [address] 03-18-2025 09:14-0400 Body mass index (BMI) [Ratio] 25.7 kg/m2 Dr. Mark Isaacs DO Work Phone: 9(924)732-058539 [place] [address] 03-18-2025 09:14-0400 Body temperature 98.2 [degF] Dr. Mark Isaacs DO Work Phone: 9(703)188-857323 [place] [address] 03-18-2025 09:14-0400 Body weight 93.[address] Mark Isaacs DO Work Phone: 8(573)125-293139 [place] [address] 03-18-2025 09:14-0400 Diastolic blood pressure 63 mm[Hg] Dr. Mark Isaacs DO Work Phone: 8(986)772-130339 [place] [address] 03-18-2025 09:14-0400 Heart rate 134 /min Dr. Mark Isaacs DO Work Phone: 8(136)393-980339 [place] [address] 03-18-2025 09:14-0400 Respiratory rate 16 /min Dr. Mark Isaacs DO Work Phone: 9(941)306-436039 [place] [address] 03-18-2025 09:14-0400 SaO2% (BldA) [Mass fraction] 97 % Dr. Mark Isaacs DO Work Phone: 6(547)311-348839 [place] [address] 03-18-2025 09:14-0400 Systolic blood pressure 101 mm[Hg] Dr. Mark Isaacs DO Work Phone: 2(540)286-698439 [place] [address] 03-10-2025 05:22-0400 Body temperature 98.9 [degF] Dr. Mark Isaacs DO Work Phone: 5(727)639-303439 [place] [address] 03-10-2025 05:22-0400 Diastolic blood pressure 63 mm[Hg] Dr. Mark Isaacs DO Work Phone: 8(463)721-845839 [place] [address] 03-10-2025 05:22-0400 Heart rate 104 /min Dr. Mark Isaacs DO Work Phone: 6(042)497-710423 [place] [address] 03-10-2025 05:22-0400 Respiratory rate 22 /min Dr. Mark Isaacs DO Work Phone: 8(074)064-878523 [place] [address] 03-10-2025 05:22-0400 SaO2% (BldA) [Mass fraction] 99 % Dr. Mark Isaacs DO Work Phone: 0(267)388-398823 [place] [address] 03-10-2025 05:22-0400 Systolic blood pressure 104 mm[Hg] Dr. Mark Isaacs DO Work Phone: 8(891)664-907323 [place] [address] 03-10-2025 01:33-0400 Body height 190.[address] Mark Isaacs DO Work Phone: 3(044)040-019423 [place] [address] 03-10-2025 01:33-0400 Body mass index (BMI) [Ratio] 25.1 kg/m2 Dr. Mark Isaacs DO Work Phone: 7(919)763-412023 [place] [address] 03-10-2025 01:33-0400 Body weight 91.[address] Mark Isaacs DO Work Phone: 2(587)006-357123 [place] [address] 02-26-2025 10:20-0400 Diastolic blood pressure 63 mm[Hg] Dr. Mark Isaacs DO Work Phone: 4(121)679-609023 [place] [address] 02-26-2025 10:20-0400 Heart rate 85 /min Dr. Mark Isaacs DO Work Phone: 8(723)434-051723 [place] [address] 02-26-2025 10:20-0400 Respiratory rate 21 /min Dr. Mark Isaacs DO Work Phone: 3(300)891-588423 [place] [address] 02-26-2025 10:20-0400 SaO2% (BldA) [Mass fraction] 98 % Dr. Mark Isaacs DO Work Phone: 0(570)036-769023 [place] [address] 02-26-2025 10:20-0400 Systolic blood pressure 97 mm[Hg] Dr. Mark Isaacs DO Work Phone: 8(051)645-731423 [place] [address] 02-26-2025 08:05-0400 Body height 190.[address] Mark Isaacs DO Work Phone: 7(860)694-109823 [place] [address] 02-26-2025 08:05-0400 Body mass index (BMI) [Ratio] 26.2 kg/m2 Dr. Mark Isaacs DO Work Phone: 3(327)451-725823 [place] [address] 02-26-2025 08:05-0400 Body temperature 97.4 [degF] Dr. Mark Isaacs DO Work Phone: 8(521)898-539323 [place] [address] 02-26-2025 08:05-0400 Body weight 95.[address] Mark Isaacs DO Work Phone: 4(978)545-362323 [place] [address] 02-23-2025 13:18-0400 Diastolic blood pressure 49 mm[Hg] Dr. Mark Isaacs DO Work Phone: 2(230)395-542939 [place] [address] 02-23-2025 13:18-0400 Heart rate 78 /min Dr. Mark Isaacs DO Work Phone: 1(008)682-009723 [place] [address] 02-23-2025 13:18-0400 Systolic blood pressure 97 mm[Hg] Dr. Mark Isaacs DO Work Phone: 2(966)848-272839 [place] [address] 02-23-2025 10:56-0400 Body temperature 96.6 [degF] Dr. Mark Isaacs DO Work Phone: 6(090)693-343939 [place] [address] 02-23-2025 10:56-0400 Respiratory rate 18 /min Dr. Mark Isaacs DO Work Phone: 6(039)647-499139 [place] [address] 02-23-2025 10:56-0400 SaO2% (BldA) [Mass fraction] 100 % Dr. Mark Isaacs DO Work Phone: 7(922)561-535839 [place] [address] 02-16-2025 14:02-0400 Body mass index (BMI) [Ratio] 26.1 kg/m2 Dr. Mark Isaacs DO Work Phone: 2(513)461-810323 [place] [address] 02-16-2025 14:02-0400 Body weight 94.[address] Mark Isaacs DO Work Phone: 6(818)268-501639 [place] [address] 02-13-2025 10:32-0400 Body mass index (BMI) [Ratio] 25.9 kg/m2 Dr. Mark Isaacs DO Work Phone: 6(927)209-522839 [place] [address] 02-13-2025 10:32-0400 Body temperature 97.4 [degF] Dr. Mark Isaacs DO Work Phone: 3(793)295-363439 [place] [address] 02-13-2025 10:32-0400 Body weight [address] Mark Isaacs DO Work Phone: 0(821)719-210723 [place] [address] 02-13-2025 10:32-0400 Diastolic blood pressure 50 mm[Hg] Dr. Mark Isaacs DO Work Phone: 1(675)622-180623 [place] [address] 02-13-2025 10:32-0400 Heart rate 82 /min Dr. Mark Isaacs DO Work Phone: 0(169)021-186823 [place] [address] 02-13-2025 10:32-0400 Respiratory rate 16 /min Dr. Mark Isaacs DO Work Phone: 5(069)836-317523 [place] [address] 02-13-2025 10:32-0400 SaO2% (BldA) [Mass fraction] 97 % Dr. Mark Isaacs DO Work Phone: 1(404)684-198739 [place] [address] 02-13-2025 10:32-0400 Systolic blood pressure 98 mm[Hg] Dr. Mark Isaacs DO Work Phone: 6(749)663-694039 [place] [address] 02-11-2025 14:30-0400 Body temperature 98.3 [degF] Dr. Mark Isaacs DO Work Phone: 1(893)766-667439 [place] [address] 02-11-2025 14:30-0400 Diastolic blood pressure 68 mm[Hg] Dr. Mark Isaacs DO Work Phone: 8(074)400-794223 [place] [address] 02-11-2025 14:30-0400 Heart rate 84 /min Dr. Mark Isaacs DO Work Phone: 0(772)440-096623 [place] [address] 02-11-2025 14:30-0400 Respiratory rate 16 /min Dr. Mark Isaacs DO Work Phone: 6(744)533-361023 [place] [address] 02-11-2025 14:30-0400 SaO2% (BldA) [Mass fraction] 100 % Dr. Mark Isaacs DO Work Phone: 6(708)790-024223 [place] [address] 02-11-2025 14:30-0400 Systolic blood pressure 101 mm[Hg] Dr. Mark Isaacs DO Work Phone: 0(608)890-025523 [place] [address] 02-11-2025 10:58-0400 Body height 190.[address] Mark Isaacs DO Work Phone: [facility] 02-11-2025 10:58-0400 Body mass index (BMI) [Ratio] 25.8 kg/m2 Dr. Mark Isaacs DO Work Phone: [facility] 02-11-2025 10:58-0400 Body weight 93.[address] Mark Isaacs DO Work Phone: 9(157)006-633723 [place] [address] 02-09-2025 14:29-0400 Body mass index (BMI) [Ratio] 26.2 kg/m2 Dr. Mark Isaacs DO Work Phone: 2(663)803-552823 [place] [address] 02-09-2025 14:29-0400 Body weight 94.[address] Mark Isaacs DO Work Phone: 3(358)814-603239 [place] [address] 02-09-2025 14:29-0400 Diastolic blood pressure 48 mm[Hg] Dr. Mark Isaacs DO Work Phone: 3(294)607-184023 [place] [address] 02-09-2025 14:29-0400 Heart rate 77 /min Dr. Mark Isaacs DO Work Phone: 7(328)686-302823 [place] [address] 02-09-2025 14:29-0400 Respiratory rate 17 /min Dr. Mark Isaacs DO Work Phone: 2(668)427-644839 [place] [address] 02-09-2025 14:29-0400 SaO2% (BldA) [Mass fraction] 98 % Dr. Mark Isaacs DO Work Phone: 3(393)220-691823 [place] [address] 02-09-2025 14:29-0400 Systolic blood pressure 96 mm[Hg] Dr. Mark Isaacs DO Work Phone: 1(265)009-414423 [place] [address] 02-09-2025 14:04-0400 Body temperature 97.7 [degF] Dr. Mark Isaacs DO Work Phone: 4(230)848-327523 [place] [address] 02-09-2025 14:04-0400 Diastolic blood pressure 52 mm[Hg] Dr. Mark Isaacs DO Work Phone: 0(850)595-245423 [place] [address] 02-09-2025 14:04-0400 Respiratory rate 16 /min Dr. Mark Isaacs DO Work Phone: 5(699)240-067423 [place] [address] 02-09-2025 14:04-0400 Systolic blood pressure 91 mm[Hg] Dr. Mark Isaacs DO Work Phone: 8(753)712-857323 [place] [address] 02-09-2025 11:57-0400 Body mass index (BMI) [Ratio] 26.1 kg/m2 Dr. Mark Isaacs DO Work Phone: 6(513)616-117523 [place] [address] 02-09-2025 11:57-0400 Body weight 94.[address] Mark Isaacs DO Work Phone: 7(086)489-040723 [place] [address] 02-09-2025 11:57-0400 Heart rate 79 /min Dr. Mark Isaacs DO Work Phone: 8(736)759-578223 [place] [address] 02-09-2025 11:57-0400 Inhaled oxygen flow rate 0 L/min Dr. Mark Isaacs DO Work Phone: 0(216)534-045923 [place] [address] 02-09-2025 11:57-0400 SaO2% (BldA) [Mass fraction] 98 % Dr. Mark Isaacs DO Work Phone: 4(877)892-434623 [place] [address] 02-06-2025 08:07-0400 Body mass index (BMI) [Ratio] 25.9 kg/m2 Dr. Mark Isaacs DO Work Phone: 2(763)900-206123 [place] [address] 02-06-2025 08:07-0400 Body weight 93.[address] Mark Isaacs DO Work Phone: 9(970)536-680523 [place] [address] 02-06-2025 08:07-0400 Diastolic blood pressure 73 mm[Hg] Dr. Mark Isaacs DO Work Phone: 3(393)859-060523 [place] [address] 02-06-2025 08:07-0400 Heart rate 83 /min Dr. Mark Isaacs DO Work Phone: 6(656)696-847823 [place] [address] 02-06-2025 08:07-0400 Respiratory rate 18 /min Dr. Mark Isaacs DO Work Phone: 4(847)490-130623 [place] [address] 02-06-2025 08:07-0400 Systolic blood pressure 108 mm[Hg] Dr. Mark Isaacs DO Work Phone: 2(378)774-776823 [place] [address] 02-05-2025 09:58-0400 Body mass index (BMI) [Ratio] 25.8 kg/m2 Dr. Mark Isaacs DO Work Phone: 3(745)328-873823 [place] [address] 02-05-2025 09:58-0400 Body temperature 98.2 [degF] Dr. Mark Isaacs DO Work Phone: 3(232)624-453423 [place] [address] 02-05-2025 09:58-0400 Body weight 93.[address] Mark Isaacs DO Work Phone: 4(999)567-019023 [place] [address] 02-05-2025 09:58-0400 Diastolic blood pressure 56 mm[Hg] Dr. Mark Isaacs DO Work Phone: 4(013)585-601023 [place] [address] 02-05-2025 09:58-0400 Heart rate 92 /min Dr. Mark Isaacs DO Work Phone: 4(957)861-186723 [place] [address] 02-05-2025 09:58-0400 Respiratory rate 18 /min Dr. Mark Isaacs DO Work Phone: 8(895)677-998739 [place] [address] 02-05-2025 09:58-0400 SaO2% (BldA) [Mass fraction] 100 % Dr. Mark Isaacs DO Work Phone: 4(650)885-264623 [place] [address] 02-05-2025 09:58-0400 Systolic blood pressure 89 mm[Hg] Dr. Mark Isaacs DO Work Phone: 7(962)709-351023 [place] [address] 02-03-2025 09:22-0400 Body mass index (BMI) [Ratio] 26.1 kg/m2 Dr. Mark Isaacs DO Work Phone: 8(853)852-333623 [place] [address] 02-03-2025 09:22-0400 Body temperature 99.1 [degF] Dr. Mark Isaacs DO Work Phone: 2(265)166-009623 [place] [address] 02-03-2025 09:22-0400 Body weight 94.[address] Mark Isaacs DO Work Phone: [facility] 02-03-2025 09:22-0400 Diastolic blood pressure 61 mm[Hg] Dr. Mark Isaacs DO Work Phone: [facility] 02-03-2025 09:22-0400 Heart rate 176 /min Dr. Mark Isaacs DO Work Phone: [facility] 02-03-2025 09:22-0400 Respiratory rate 16 /min Dr. Mark Isaacs DO Work Phone: [facility] 02-03-2025 09:22-0400 SaO2% (BldA) [Mass fraction] 98 % Dr. Mark Isaacs DO Work Phone: [facility] 02-03-2025 09:22-0400 Systolic blood pressure 104 mm[Hg] Dr. Mark Isaacs DO Work Phone: [facility] 01-20-2025 17:14-0400 Diastolic blood pressure 66 mm[Hg] Lazaro Perry MD Work Phone: [facility] 01-20-2025 17:14-0400 Heart rate 89 /min Lazaro Perry MD Work Phone: [facility] 01-20-2025 17:14-0400 Respiratory rate 18 /min Lazaro Perry MD Work Phone: [facility] 01-20-2025 17:14-0400 SaO2% (BldA) [Mass fraction] 98 % Lazaro Perry MD Work Phone: [facility] 01-20-2025 17:14-0400 Systolic blood pressure 103 mm[Hg] Lazaro Perry MD Work Phone: [facility] 01-20-2025 16:48-0400 Body temperature 98.49 [degF] Lazaro Perry MD Work Phone: [facility] 01-20-2025 11:39-0400 Body height 191.8 cm Lazaro Perry MD Work Phone: [facility] 01-20-2025 11:39-0400 Body mass index (BMI) [Ratio] 24.78 kg/m2 Lazaro Perry MD Work Phone: [facility] 01-20-2025 11:39-0400 Body weight 91.13 kg Lazaro Perry MD Work Phone: [facility] 12-29-2024 10:32-0400 Body mass index (BMI) [Ratio] 25.9 kg/m2 Dr. Mark Isaacs DO Work Phone: 4(339)495-751323 [place] [address] 12-29-2024 10:32-0400 Body temperature 97.8 [degF] Dr. Mark Isaacs DO Work Phone: 8(771)295-926239 [place] [address] 12-29-2024 10:32-0400 Body weight 94.[address] Mark Isaacs DO Work Phone: 3(553)861-992621 [address] 12-29-2024 10:32-0400 Diastolic blood pressure 63 mm[Hg] Dr. Mark Isaacs DO Work Phone: 3(102)855-771623 [place] [address] 12-29-2024 10:32-0400 Heart rate 107 /min Dr. Mark Isaacs DO Work Phone: 8(619)389-755123 [place] [address] 12-29-2024 10:32-0400 Respiratory rate 18 /min Dr. Mark Isaacs DO Work Phone: 1(198)400-143423 [place] [address] 12-29-2024 10:32-0400 SaO2% (BldA) [Mass fraction] 99 % Dr. Mark Isaacs DO Work Phone: 2(853)252-369323 [place] [address] 12-29-2024 10:32-0400 Systolic blood pressure 99 mm[Hg] Dr. Mark Isaacs DO Work Phone: 3(587)661-651723 [place] [address] 12-10-2024 10:22-0500 Body mass index (BMI) [Ratio] 27.1 kg/m2 Dr. Mark Isaacs DO Work Phone: [facility] 12-10-2024 10:22-0500 Body temperature 98 [degF] Dr. Mark Isaacs DO Work Phone: 0(129)244-040123 [place] [address] 12-10-2024 10:22-0500 Body weight 98.[address] Mark Isaacs DO Work Phone: 9(334)010-950923 [place] [address] 12-10-2024 10:22-0500 Diastolic blood pressure 55 mm[Hg] Dr. Mark Isaacs DO Work Phone: 0(575)147-836539 [place] [address] 12-10-2024 10:22-0500 Heart rate 146 /min Dr. Mark Isaacs DO Work Phone: 8(098)915-439539 [place] [address] 12-10-2024 10:22-0500 Respiratory rate 16 /min Dr. Mark Isaacs DO Work Phone: 3(293)423-047639 [place] [address] 12-10-2024 10:22-0500 SaO2% (BldA) [Mass fraction] 99 % Dr. Mark Isaacs DO Work Phone: 3(960)629-797623 [place] [address] 12-10-2024 10:22-0500 Systolic blood pressure 101 mm[Hg] Dr. Mark Isaacs DO Work Phone: 6(311)923-013323 [place] [address] 11-26-2024 19:56-0500 Body temperature 97.8 [degF] Dr. Mark Isaacs DO Work Phone: 2(800)482-469623 [place] [address] 11-26-2024 19:56-0500 Diastolic blood pressure 64 mm[Hg] Dr. Mark Isaacs DO Work Phone: 0(110)825-597023 [place] [address] 11-26-2024 19:56-0500 Heart rate 88 /min Dr. Mark Isaacs DO Work Phone: 7(956)341-855123 [place] [address] 11-26-2024 19:56-0500 Respiratory rate 16 /min Dr. Mark Isaacs DO Work Phone: 7(527)904-771323 [place] [address] 11-26-2024 19:56-0500 SaO2% (BldA) [Mass fraction] 97 % Dr. Mark Isaacs DO Work Phone: [facility] 11-26-2024 19:56-0500 Systolic blood pressure 101 mm[Hg] Dr. Mark Isaacs DO Work Phone: [facility] 11-26-2024 10:37-0500 Body weight 98.[address] Mark Isaacs DO Work Phone: [facility] 11-26-2024 04:43-0500 Body mass index (BMI) [Ratio] 45.6 kg/m2 Dr. Mark Isaacs DO Work Phone: [facility] 11-25-2024 11:40-0500 Inhaled oxygen flow rate 2 L/min Dr. Mark Isaacs DO Work Phone: [facility] 07-25-2024 10:13-0400 Body temperature 97.11 [degF] Thomas Moomaw [employer] Work Phone: [facility] 07-25-2024 10:13-0400 Body weight 94.6 kg Thomas Moomaw [employer] Work Phone: [facility] 07-25-2024 10:13-0400 Diastolic blood pressure 61 mm[Hg] Thomas Moomaw [employer] Work Phone: [facility] 07-25-2024 10:13-0400 Heart rate 110 /min Thomas Moomaw [employer] Work Phone: [facility] 07-25-2024 10:13-0400 Respiratory rate 18 /min Thomas Moomaw [employer] Work Phone: [facility] 07-25-2024 10:13-0400 SaO2% (BldA) [Mass fraction] 100 % Thomas Moomaw [employer] Work Phone: [facility] 07-25-2024 10:13-0400 Systolic blood pressure 100 mm[Hg] Thomas Moomaw [employer] Work Phone: [facility] 02-21-2023 11:40-0400 Body height 190.5 cm [facility] Encounters Encounter Date Encounter Type Care Provider Facility Start: 06-03-2025 ambulatory Geeta Rodgers NP Facil ity:[facility] Start: 05-29-2025 ambulatory Trish Arellano ty:[facility] Start: 05-27-2025 End: 05-27-2025 Patient encounter procedure Geeta Ana Maria FEATHER SHAPER-C -[facility] Work Phone: Start: 05-27-2025 End: 05-27-[address] Jose Ramachandran DO Work Phone: -[facility] Start: 05-27-[address] Linh Ortiz MD -[facility] Start: 05-15-2025 End: 05-15-[address] Merlin Heredia MD -[facility] Work Phone: Start: 05-15-2025 End: 05-15-[address] Jose Ramachandran DO Work Phone: -[facility] Start: 05-14-[address] Linh Ortiz MD -[facility] Start: 05-12-2025 End: 05-12-2025 Patient encounter procedure Geeta Ana Maria FEATHER SHAPER-C -[facility] Work Phone: Start: 05-12-2025 End: 05-12-[address] Jose Ramachandran DO Work Phone: -[facility] Start: 05-12-[address] Linh Ortiz MD -[facility] Start: 04-30-2025 End: 04-30-2025 Emergency department patient visit Dr. Jose Ramachandran DO Work Phone: -Emergency Department Work Phone: Start: 04-29-[address] Linh Ortiz MD -[facility] Start: 04-29-2025 End: 04-29-2025 Patient encounter procedure Geeta Ana Maria FEATHER SHAPER-C -[facility] Work Phone: Start: 04-29-2025 End: 04-29-[address] Jose Ramachandran DO Work Phone: [facility] Start: 04-21-[address] [facility] Start: 04-21-2025 End: 04-21-2025 Patient encounter procedure Geeta Ana Maria [facility] Work Phone: Start: 04-21-2025 End: 04-21-[address] Jose Ramachandran DO Work Phone: [facility] Start: 04-15-[address] Linh [facility] Start: 04-15-2025 End: 04-15-[address] Trish Ortiz MD -[facility] Work Phone: Start: 04-15-2025 End: 04-15-[address] Jose Ramachandran DO Work Phone: [facility] Start: 04-07-2025 End: 04-07-[address] Mark Morales MD -[facility] Work Phone: Start: 04-07-2025 End: 04-07-[address] Jose Ramachandran DO Work Phone: [facility] Start: 04-03-[address] Linh [facility] Start: 03-31-[address] Linh [facility] Start: 03-31-2025 End: 03-31-[address] Trish Ortiz MD -[facility] Work Phone: Start: 03-31-2025 End: 03-31-[address] Jose Ramachandran DO Work Phone: [facility] Work Phone: Start: 03-25-[address] Linh [facility] Start: 03-25-2025 End: 03-25-[address] Mark Isaacs DO Work Phone: [facility] Work Phone: Start: 03-25-2025 End: 03-25-2025 Patient encounter procedure Geeta Rodgers FEATHER SHAPER-C -[facility] Work Phone: Start: 03-18-[address] Linh Ortiz MD -[facility] Start: 03-18-2025 End: 03-18-[address] Trish Ortiz MD -[facility] Work Phone: Start: 03-18-2025 End: 03-18-[address] Mark Isaacs DO Work Phone: [facility] Work Phone: Start: 03-13-2025 Encounter for other preprocedural examination [facility] Start: 03-10-2025 End: 03-10-2025 Emergency department patient visit Dr. Mark Isaacs DO Work Phone: -Emergency Department Work Phone: Start: 03-04-2025 End: 03-04-[address] Mark Isaacs DO Work Phone: [facility] Work Phone: Start: 03-04-2025 End: 03-04-[address] Trish WhiteheadCat Scan [facility] Work Phone: Start: 03-04-2025 End: 03-04-2025 ambulatory [facility] Start: 02-26-2025 End: 02-26-[address] Mark Isaacs DO Work Phone: [facility] Work Phone: Start: 02-26-2025 End: 02-26-[address] Trish WhiteheadCat Scan [facility] Work Phone: Start: 02-26-2025 End: 02-26-2025 ambulatory Trish Ortiz Facility:[facility] Start: 02-23-[address] Linh Ortiz MD -[facility] Start: 02-13-[address] Mark Isaacs DO Work Phone: [facility] Start: 02-13-2025 End: 02-13-2025 Patient encounter procedure Johny SANTIAGO -[facility] Work Phone: Start: 02-13-2025 End: 02-13-2025 Patient encounter status Johny SANTIAGO [facility] Start: 02-13-2025 End: 02-13-2025 ambulatory Jose Ramachandran Facility:[facility] Start: 02-11-2025 ambulatory Maya Live Facilit y:[facility] Start: 02-11-2025 Non-patient / Non-visit Dr. Winston Live MD -[facility] Start: 02-11-2025 End: 02-11-2025 Admission to same day surgery center Dr. Maya Live MD -[facility] Start: 02-11-2025 End: 02-11-[address] Mark Isaacs DO Work Phone: [facility] Work Phone: Start: 02-09-2025 End: 02-09-[address] Maya Live MD -[facility] Work Phone: Start: 02-09-2025 End: 02-09-2025 ambulatory Maya Live Facility:[facility] Start: 02-09-[address] Linh Ortiz MD -[facility] Start: 02-06-2025 End: 02-06-[address] Mark Morales MD -[facility] Work Phone: Start: 02-06-2025 End: 02-06-2025 ambulatory Jose Ramachandran Facility:[facility] Start: 02-05-2025 End: 02-05-2025 Patient encounter procedure Geeta GLASS -[facility] Work Phone: Start: 02-05-2025 End: 02-05-2025 ambulatory Geeta Rodgers NP Facility:[facility] Start: 02-03-2025 End: 02-03-[address] Trish Ortiz MD -[facility] Work Phone: Start: 02-03-2025 End: 02-03-2025 ambulatory Jose Ramachandran Facility:[facility] Start: 01-20-2025 End: 01-20-2025 ambulatory LAZARO PERRY Facility:[facility] Start: 01-20-2025 End: 01-20-2025 Subsequent hospital visit by physician Lazaro Perry MD Work Phone: [facility] Comment on above: Other ulcerative col itis with complication Start: 01-19-2025 ambulatory SELF SELF Facility:[facility] Start: 01-02-2025 ambulatory TRISH ORTIZ Faci lity:[facility] Start: 12-29-2024 End: 12-29-[address] Trish Ortiz MD -[facility] Work Phone: Start: 12-29-2024 End: 12-29-2024 ambulatory Trish Ortiz Facility:[facility] Start: 12-10-2024 End: 12-10-[address] [facility] Work Phone: Start: 12-10-2024 End: 12-10-2024 ambulatory Trish Ortiz Facility:[facility] Start: 12-05-2024 End: 12-05-2024 Patient encounter procedure Mitra GONZALEZC -[facility] Work Phone: Start: 12-05-2024 End: 12-05-2024 ambulatory Jose Ramachandran Facility:[facility] Start: 11-26-2024 Non-patient / Non-visit Dr. Hui Matthews MD -[facility] Work Phone: Start: 11-25-2024 Non-patient / Non-visit Kailash Hameed nd, DO -[facility] Start: 11-24-2024 Non-patient / Non-visit Kailash Hameed nd DO -[facility] Start: 11-24-2024 ambulatory Aniket Paniagua Facility:[facility] Start: 11-24-2024 Non-patient / Non-visit Dr. Aniket sánchez MD -[facility] Start: 11-23-2024 Non-patient / Non-visit Kailash Hameed nd DO -[facility] Start: 11-23-2024 Non-patient / Non-visit Dr. Doreen Love MD -[facility] Work Phone: Start: 11-22-2024 ambulatory John Love Fac ility:[facility] Start: 11-22-2024 End: 11-26-2024 Evaluation and management of inpatient Dr. Salena Matthews MD -[facility] Work Phone: Start: 07-25-2024 End: 07-25-2024 ambulatory SELF Facility:[facility] Start: 07-25-2024 End: 07-25-2024 Patient encounter procedure Thomas Garcia [employer] Work Phone: [facility] Comment on above: Insect bites and sti ngs, initial encounter (Primary Dx) Start: 04-25-2023 End: 04-25-2023 ambulatory [facility] Work Phone: Start: 04-25-2023 End: 04-25-2023 Patient encounter procedure [facility] Work Phone: Start: 02-21-2023 End: 02-21-2023 Patient encounter procedure [facility] Work Phone: Procedures Date Procedure Procedure Detail Performing Clinician Start: 05-27-[address] Jose Ramachandran DO Work Phone: Start: 05-12-[address] Jose Ramachandran DO Work Phone: Start: 04-29-[address] Jose Ramachandran DO Work Phone: Start: 04-29-2025 Serum inorganic phosphate measurement Dr. Jose Ramachandran DO Work Phone: Start: 04-21-[address] Jose Ramachandran DO Work Phone: Start: 04-21-2025 Serum inorganic phosphate measurement Dr. Jose Ramachandran DO Work Phone: Start: 04-15-[address] Jose Ramachandran DO Work Phone: Start: 04-15-2025 Total iron binding capacity measurement Dr. Jose Ramachandran DO Work Phone: Start: 03-31-[address] Jose Ramachandran DO Work Phone: Start: 03-31-2025 Serum inorganic phosphate measurement Dr. Jose Ramachandran DO Work Phone: Start: 03-25-[address] Mark Isaacs DO Work Phone: Start: 03-25-2025 Serum inorganic phosphate measurement Dr. Mark Isaacs DO Work Phone: Start: 03-18-[address] Mark Isaacs DO Work Phone: Start: 03-18-2025 Total iron binding capacity measurement Dr. Mark Isaacs DO Work Phone: Start: 03-10-2025 SARS-CoV-2, Influenza & RSV (PCR) Dr. Neelam Isaacs DO Work Phone: Start: 03-10-2025 X-ray of chest, PA and lateral views Dr. Mark Isaacs DO Work Phone: Start: 03-10-[address] Mark Isaacs DO Work Phone: Start: 03-04-2025 CT of thorax, abdomen and [...] Phone: Start: 11-24-2024 Albumin/Globulin ratio Dr. Mark Jaffe O Work Phone: Start: 11-24-2024 Wwwus-1-Ndiutnqxeia measurement Dr. Doc Isaacs DO Work Phone: Comment on above: [facility] Electrochemiluminescen ce Immunoassay(ECLIA)Values obtained with different [...] Test not performed Start: 11-24-2024 Antibody to JACKI-[address] Mark mercer DO Work Phone: Comment on above: Previous reported result: TNP AIEdited b y: INFCE on 11/26/24:1408 AMENDED REPORT 11/26/24 1408 ANTI-JACKI previously reported as: Test not performed Start: [...] Mark mercer DO Work Phone: Start: 11-24-[address] antibody measurement Dr. 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: Test not performed [...] [Moles/vol ume] in Serum or Plasma POTASSIUM [facility] Start: 06-08-2025 Influenza vaccination INFLUENZ A VACCINE (Season Ended) [facility] Start: 05-27-2025 [facility] Start: 05-27-2025 Vital signs measurements [facility] Start: 05-12-2025 [facility] Start: 05-12-2025 Vital signs measurements [facility] Start: 04-30-2025 [facility] Start: 04-29-2025 [facility] Start: 04-29-2025 Vital signs measurements [facility] Start: 04-21-2025 [facility] Start: 04-15-2025 Ferritin [Mass/volum e] in Serum or Plasma [facility] Start: 04-15-2025 Iron and Iron bindin g capacity panel - Serum or Plasma [facility] Start: 04-15-2025 Serum inorganic phos phate measurement [facility] Start: 04-15-2025 [facility] Start: 04-15-2025 Vital signs measurements [facility] Start: 04-01-2025 Vital signs measurements [facility] Start: 03-31-2025 [facility] Start: 03-25-2025 [facility] Start: 03-18-2025 Patient referral [facility] Work Phone: Start: 03-18-2025 [facility] Start: 03-18-2025 Vital signs measurements [facility] Start: 03-05-2025 Venous catheter care management [facility] Start: 02-26-2025 Biopsy liver needle percutaneous NEEDLE BIOPSY OF LIVER PERQ [facility] Start: 02-26-2025 Venous catheter care management [facility] Start: 02-26-2025 Catheterization of vein [facility] Start: 02-26-2025 Oxygen therapy [facility] Start: 02-26-2025 Patient discharge [facility] Start: 02-26-2025 Vital signs measurements [facility] Start: 02-16-2025 Venous catheter care management [facility] Start: 02-11-2025 Patient discharge [facility] Start: 02-11-2025 Anesthesia access ce ntral venous circulation ANESTH VASCULAR ACCESS [facility] Start: 02-11-2025 Insj tunneled ctr va d w/subq port age 5 yr/> INSERT TUNNELED CV CATH [facility] Start: 02-04-2025 Patient referral [facility] Work Phone: Start: 02-03-2025 Patient referral [facility] Work Phone: Start: 12-29-2024 Patient referral [facility] Work Phone: Start: 12-10-2024 Patient referral [facility] Work Phone: Start: 11-26-2024 Patient discharge [facility] Start: 11-25-2024 Provision of activit y privileges [facility] Start: 11-25-2024 Catheterization of vein [facility] Start: 11-25-2024 Vital signs measurements [facility] Start: 11-23-2024 Administration of bl ood product [facility] Start: 11-23-2024 End: 11-23-2024 Administration of blood product [facility] Start: 11-23-2024 Inhalation therapy procedure [facility] Start: 11-22-2024 End: 11-23-2024 [facility] Start: 11-22-2024 Administration of bl ood product [facility] Start: 11-22-2024 Application of intermittent pneumatic compression device [facility] Start: 11-22-2024 Following clinical p athway protocol [facility] Start: 11-22-2024 Administration of bl ood product [facility] Start: 11-22-2024 Application of elast ic bandage [facility] Start: 11-22-2024 Assessment of risk o f venous thromboembolism [facility] Start: 11-22-2024 Catheterization of vein [facility] Start: 11-22-2024 Documentation procedure [facility] Start: 11-22-2024 Elevation of affecte d extremity [facility] Start: 11-22-2024 Insertion of cathete r into peripheral vein [facility] Start: 11-22-2024 Measuring intake and output [facility] Start: 11-22-2024 Notification of physician [facility] Start: 11-22-2024 Patient education [facility] Start: 11-22-2024 Patient referral to dietitian [facility] Start: 11-22-2024 Providing care accor ding to standard [facility] Start: 11-22-2024 Referral to gastroenterology service [facility] Start: 11-22-2024 Referral to occupati onal therapist [facility] Start: 11-22-2024 Referral to service [facility] Start: 11-22-2024 Admission procedure [facility] Start: 11-22-2024 Administration of bl ood product [facility] Start: 11-22-2024 Patient referral to dietitian [facility] Start: 06-08-2024 Covid-19 Vaccine ( season) Covid-19 Vaccine ( season) [facility] Start: 06-08-2024 Influenza vaccination Influenza Vacc ine (#1) [facility] Start: 01-31-2020 Pneumococcal vaccination PNEUM OCOCCAL VACCINE SERIES (1 of 1 - PCV) [facility] Start: 01-31-2020 Shingrix Vaccine (1 of 2) Agarwal grix Vaccine (1 of 2) [facility] Start: 01-31-2020 Zoster vaccine hzv l glen for subcutaneous use ZOSTER (SHINGLES) VACCINE (1 of 2) [facility] Start: 2015 Diabetes Screening Diabetes Screenin g [facility] Start: 2015 Screening for malign ant neoplasm of colon [facility] Start: 2010 Lipid panel LIPID SCREENING [facility] Start: 2005 Lipid panel Lipid Screening [facility] Start: 1989 Hepatitis B vaccination HEP B VACCINE (1 of 3 - 19+ 3-dose series) [facility] Start: 1989 Hepatitis B Vaccine (1 of 3 - 19+ 3-dose series) Hepatitis B Vaccine (1 of 3 - 19+ 3-dose series) [facility] Start: 1989 Third diphtheria, te tanus and acellular pertussis (DTaP) vaccination TDAP (ADULT) [facility] Start: 1989 Urine microalbumin profile DTa P,Tdap,Td Vaccine (1 - Tdap) [facility] Start: 01-31-1988 Anxiety Screening Anxiety Screening [facility] Start: 01-31-1988 Depression Screening Depression Scre ening [facility] Start: 01-31-1988 Hepatitis C screening Hepatitis C Sc reening [facility] Start: 01-31-1988 HIV screening HIV Screening [facility] Start: 1985 HIV screening HIV SCREENING DISCUSSION [facility] Start: 1970 Hepatitis C screening HEPATITI S C VIRUS SCREENING [facility] Start: 1970 Tetanus vaccination TETANUS [facility] Bilirubin.direct [Mass/volume] in Serum or Plasma [facility] CT Abdomen and Pelvi s W contrast IV [facility] CT Abdomen and Pelvi s W contrast IV [facility] Ferritin [Mass/volum e] in Serum or Plasma [facility] Ferritin [Mass/volum e] in Serum or Plasma [facility] Iron [Mass/mass] in Unspecified specimen [facility] Iron and Iron bindin g capacity panel - Serum or Plasma [facility] Iron and Iron bindin g capacity panel - Serum or Plasma [facility] Iron saturation [Mas s Fraction] in Serum or Plasma [facility] Lactate dehydrogenas e measurement [facility] Lipid 1996 panel - S ariane or Plasma [facility] Patient Education [facility] Work Phone: Patient referral [facility] Work Phone: Positron emission tomography with computed tomography [facility] Prostate specific an tigen measurement [facility] Serum inorganic phos phate measurement [facility] Serum inorganic phos phate measurement [facility] Serum inorganic phos phate measurement [facility] End: 01-20-2025 Standard ECG ECG ECG Routine One Time for 1 Occurrences starting 01/20/2025 until 01/20/2025 [facility] Comment on above: One Time for 1 Occur rences starting 01/20/2025 until 01/20/2025 SURG PATH REQUEST [facility] Work Phone: Comment on above: Release Upon Zachin g for 1 Occurrences starting 01/20/2025, 1 completed Thyroid stimulating hormone measurement [facility] Total iron binding capacity measurement [facility] Immunizations Immunization Date Immunization Notes Care Provider Fa cility 02-11-2022 Covid (Pfizer) Dr. Jose Del Cid er DO Work Phone: [facility] 02-11-2022 COVID-19 original vaccine, age 12+ yr, monovalent (PFIZER-BIONTECH - ALCARAZ TOP) Thomas Moomaw [employer] Work Phone: [facility] 08-27-2021 COVID-19 original vaccine, age 12+ yr, monovalent (PFIZER-BIONTECH - PURPLE TOP) Thomas Moomaw [employer] Work Phone: [facility] 07-30-2021 COVID-19 original vaccine, age 12+ yr, monovalent (PFIZER-BIONTECH - PURPLE TOP) Thomas Moomaw [employer] Work Phone: [facility] 04-21-2014 tetanus toxoid, redu dane diphtheria toxoid, and acellular pertussis vaccine, adsorbed [facility] Payers Date Payer Category Payer Medicaid (Managed Care) DERRICK zavaleta [id number] 2024 Unknown [id number] 2024 Self-pay [id number] 2024 [facility] [id number] 1970 Unknown [id number] 2.16.840.1.183792.3.579.2. 594 1970 Unknown [id number] 2.16.840.1.915017.3.579.2. 594 Unknown [id number] 2.840.1.750555.3.579.2. 462 Unknown [id number] 2.840.1.806223.3.579.2. 462 Unknown [id number] 2.840.1.351794.3.579.2. 462 Unknown [id number] 2.840.1.627914.3.579.2. 462 Unknown [id number] 2.840.1.099332.3.579.2. 462 Unknown [id number] 2.840.1.752949.3.579.2. 462 Unknown [id number] 2.840.1.415749.3.579.2. 462 Unknown [id number] 2.840.1.285509.3.579.2. 462 Unknown [id number] 2.840.1.837517.3.579.2. 462 Unknown [id number] 2.840.1.621867.3.579.2. 462 Unknown [id number] 2.840.1.278581.3.579.2. 462 Unknown [id number] 2.840.1.803371.3.579.2. 462 Unknown [id number] 2.840.1.782342.3.579.2. 462 Unknown [id number] 2.840.1.289026.3.579.2. 462 Unknown [id number] 2.16.840.1.906863.3.579.2. 462 Unknown [id number] 2.16.840.1.418699.3.579.2. 462 Unknown [id number] 2.16.840.1.089804.3.579.2. 462 Unknown [id number] 2.16.840.1.270943.3.579.2. 462 Unknown [id number] 2.16.840.1.793996.3.579.2. 462 Unknown [id number] 2.16.840.1.902358.3.579.2. 462 Unknown [id number] 2.840.1.064718.3.579.2. 462 Unknown [id number] 2.840.1.822132.3.579.2. 462 Unknown [id number] 2.840.1.306532.3.579.2. 462 Unknown [id number] 2..840.1.611107.3.579.2. 462 Unknown [id number] 2.16.840.1.753588.3.579.2. 462 Unknown [id number] 2.16.840.1.631749.3.579.2. 462 Unknown [id number] 2.16840.1.207660.3.579.2. 462 Unknown [id number] 2.16.840.1.435583.3.579.2. 462 Unknown [id number] 2.16.840.1.400541.3.579.2. 462 Unknown [id number] 2.16.840.1.753810.3.579.2. 462 Unknown [id number] 2.16.840.1.443139.3.579.2. 462 Unknown [id number] 2.16.840.1.559413.3.579.2. 462 Unknown [id number] 2.16840.1.450063.3.579.2. 462 Unknown [id number] 2.16.840.1.425871.3.579.2. 462 Unknown [id number] 2.16.840.1.786993.3.579.2. 462 Unknown [id number] 2.16.840.1.742411.3.579.2. 462 Social History Date Type Detail Facility Start: 06-25-2020 Tobacco smoking stat us CAIS Unknown if ever smoked [facility] Start: 04-16-2020 Occasional [facility] Start: 04-16-2020 None [facility] Start: 04-16-2020 Alone [facility] Start: 04-16-2020 Non-smoker [facility] Start: 1970 Sex Assigned At Male [facility] Start: 07-25-2024 End: 05-15-2025 Tobacco smoking status NHIS Never smoked tobacco [facility] Start: 07-25-2024 End: 01-02-2025 Tobacco use and exposure Smokeless tobacco non-user [facility] Start: 07-25-2024 End: 01-02-2025 History of Social function [facility] Start: 07-25-2024 End: 01-02-2025 Tobacco use panel [facility] Start: 1970 Sex assigned at Not on file C [facility] Start: 01-02-2025 Alcoholic beverage intake Current drinker of alcohol (finding) [facility] Start: 01-02-2025 Alcohol Comment social [facility] Start: 11-10-2012 Sex Male (finding) [facility] Medical Equipment Procedure Code Equipment Code Equipment Origin al Text Equipment Identifier Dates Insertion, vascular access port ([id number]) Vascular port/catheter ([id number] Start: 02-11-2025 Goals Date Patient Goal Desired Activity /State Functional Status Date Assessment Result Facility 11-26-2024 Functional status Chair [facility] Work Phone: Mental Status Date Assessment Result Facility 04-30-2025 Cognitive function Level Of Cons ciousness Awake;Alert;Appropriate;[facility] [employer] [facility] Work Phone: 03-25-2025 Cognitive function Level Of Cons ciousness Awake;Alert;Appropriate;[employer] [facility] Work Phone: 03-10-2025 Cognitive function Level Of Cons ciousness Awake;Alert;Appropriate;[facility] Work Phone: 02-26-2025 Cognitive function Awake;Alert;Appropriat e [facility] Work Phone: 02-23-2025 Cognitive function Awake;Alert;A ppropriate;[facility] Work Phone: 02-16-2025 Cognitive function Arousable To Voice/Nam [facility] Work Phone: 02-11-2025 Cognitive function Voice/Name [facility] Work Phone: 02-09-2025 Cognitive function Voice/Name [facility] Work Phone: 11-26-2024 Cognitive function Voice/Name [facility] Work Phone: Clinical Notes 2019 to 05-27-2025 Note Date & Type Note Facility 05-27-2025 Progress note [facility] 05-27-2025 Progress note Note Date/Time May 27, 2025 8:35am [facility] [facility] [address] [place] [id number] OFFICE VISIT Date of Service: 05/27/25 0801 MR#: [id number] Acct: [id number] Name: DENY BRONSON Rep #: [id number] : 1970 From: Geeta Frank ch, NP FEATHER SHAPER-C Age/Sex: 55/M Location: [facility] [place] Status: Signed HPI Subjective Date of Service 05/27/25 Chief Complaint Metastatic cancer to liver History of Present Illness 55-year-old male past medical history notable for ulcerative colitis status posttotal proctocolectomy in 1993 with a J-pouch at [facility] and pathology reported extensive chronic and active colitis and low-grade epithelial dysplasia.. He was hospitalized in November 2024 after he reported bleeding and black melanotic stools was found with a hemoglobin of 5.7 g per DL. November 22, 2024 CTA: IMPRESSION: 1. No acute pulmonary embolism within the proximal pulmonary arteries. 2. Severe cardiomegaly. Dilation of the main pulmonary trunk, which can be seenwith pulmonary artery hypertension. 3. Dilation of the [...] granulomatosis with polyangiitis. Correlation with prior imaging recommendedas neoplasm can not be excluded. November 24, [...] biopsy: Fragments of duodenal mucosa with mild Ernst?s gland hyperplasia. B. Colon anastomosis, biopsy: Fragments of colonic mucosa with extensive ulceration, acute and chronic inflammation, granulation tissue reaction and reactive epithelial changes November 25, 2024 Liver mass, CT guided core biopsy: Well differentiated glands with intestinal differentiation, consistent with well-differentiated adenocarcinoma. Liver tissue is not present. The specimen is sent to [facility] for expert opinion, reviewed by Dr. Harding and lito diagnosis is rendered. The complete report is [...] and pouchoscopy with biopsies: No primary identified. February 26, 2025 CT-guided liver biopsy #2 further testing at [facility] [place]: MICROSCOPIC DIAGNOSIS A. Liver, ?neoplasm?, CT-guided core biopsy: - Well-differentiated adenocarcinoma ? see note and Comment. o Note: This histology is similar to the previous biopsy ([id number]) with the addition of foci suggestive of desmoplasia and invasion noted, supporting a neoplastic process. IHC (performed at [facility] and [facility]) show the tumor cells to be positive for CDX2, Villin, CK20, CK19, and SATB2 (patchy); and negative for CK7. o These findings are most consistent with a gastrointestinal primary. Although cholangiocarcinoma cannot be entirely ruled out, the findings strongly raise the possibility of a metastasis from a colorectal primary. Treatment summary and response: Modified FOLFOX 6 March 18, 2025 Interval History The patient is presenting to clinic today for an evaluation anticipating he willbegin cycle 6 FOLFOX. Appetite continues to improve, PO fluid intake described as inadequate. Taking in 1 Gatorade per day. Fatigue mild to moderate, unchanged. Able to perform most instrumental ADLs at home with frequent. Notes numbness/tingling intermittently in fingertips down to second knuckle. Notinterfering with ADLs. Chronic diarrhea continues, modestly improved estimates 5-10 small loose (no liquid) BMs/day. Has noted some bloody stools x 2 days. Responds well to loperamide. No change in occasional, nonproductive cough and exertional dyspnea. Specifically denies fever/chills, headache, dizziness, CP, palpitations, N/V, abd pain. [facility] Medical History Abdominal hernia Encounter to establish care Total bilirubin, elevated Wears glasses Cancer Anemia Easy bruising Excessive [...] liver of unknown origin Ulcerative colitis Ascites Atrial fibrillation HUANG (dyspnea on exertion) Nonrheumatic aortic (valve) stenosis Bicuspid aortic valve Acute kidney injury Chest pain, unspecified Asthma Churg-Geronimo syndrome Surgical History History of esophagogastroduodenoscopy (EGD) Hx of surgical procedure S/P proctocolectomy (~1993) Hx laparoscopic cholecystectomy History of right and left heart catheterization (LHC) (~07/12/01) History of aortic valve replacement with bioprosthetic valve Family History Other Heart disease Social History adopted: No household members: none housing: house current occupational status: disabled Smoking Status: Never smoker alcohol intake: current alcohol intake frequency: holidays/special occasions only details: had a beer last month substance use type: does not use what type of physical activity do you participate in: none seatbelt use: always do you feel safe at home: Yes ROS ROS Narrative Negative except as documented in the interval HPI Intake Vital Signs 04/29/25 09:30 05/15/25 09:19 05/27/25 08:03 Height 6 ft 3 in 6 ft 3 in 6 ft 3 in Weight: 208 lb 207 lb 4 oz BMI 25.9 25.9 BP 88/54 L 94/58 L Blood Pressure Location Lt brachial Lt brachial Position Sitting Sitting Respiration 18 18 Pulse 94 82 Pulse Source Monitor Monitor Temp 97.8 F 98.2 F Temperature Source Temporal Artery Pulse Oximetry (%) 97 100 Oxygen Delivery Method room air room air Intake Accompanied by: Self Is patient in pain?: No Allergies acetaminophen Allergy (Mild, Verified 05/27/25 08:04) Itching Penicillins (PCN) Allergy (Verified 05/27/25 08:04) PT UNSURE OF REACTION Medications ?Medication ?Instructions ?Recorded ?Confirmed ?Type guaifenesin 1,200 mg tablet, 1,200 mg PO DAILY 5 05/27/25 History extended release 12 hr (Mucinex) cholestyramine-aspartame 4 gram 4 g PO TID #239.4 gram s 12/05/24 05/27/25 Rx oral powder (Cholestyramine Light) metoprolol succinate 25 mg 25 mg PO QDAY #90 tabs 05/0 12/0205/27/25 Rx tablet,extended release 24 hr (Toprol XL) ondansetron 8 mg disintegrating 8 mg PO Q8H PRN nausea and 03/18/25 05/27/25 Rx tablet vomiting #30 tabs prochlorperazine maleate 10 mg 10 mg PO Q6H PRN nausea and 03/18/25 05/27/25 Rx tablet vomiting #30 tabs pantoprazole 40 mg tablet,delayed 40 mg PO DAILY #30 t abs 05/12/25 05/27/25 Rx release immodium PO 05/15/25 05/27/25 History Central Venous Access Central Venous Access: Yes Port/PICC: Port Laboratory Tests 05/27/25 07:45 WBC 7.5 Hgb 10.5 L Hct 33.0 L Plt Count 257 Absolute Neuts (auto) 5.6 Laboratory Tests 05/27/25 07:45 Sodium 137 Potassium 3.7 Chloride 106 Carbon Dioxide 21.2 BUN 13 Creatinine 0.77 Glucose 97 Calcium 8.4 Magnesium 1.6 Total Bilirubin 1.46 H AST 54 H ALT 44 Alkaline Phosphatase 489 H Albumin 3.1 L Exam Physical Exam Narrative ECOG 2 Const no apparent distress General Appearance: ill appearing Positive for chronically, frail and appears older than stated age HEENT Face and Sinus: normal facial exam Eyes General Eye: normal appearance of both eyes Neck no lymphadenopathy and no JVD Resp clear to auscultation bilaterally Cardio Rhythm: abnormal rhythm GI soft to palpation and non-tender Inspection: visible herniation and other Other Details: Abdominal and inguinal hernias Palpation: hepatomegaly Back/Spine no thoracic nor lumbar tenderness Extremity General Extremity: edema bilateral lower extremity Details: mild; Negative for clubbing or cyanosis Skin no wounds Neuro oriented x3, CN's II-XII intact bilaterally and moves all extremities Speech: speech normal Gait (Neuro): normal gait Psych cooperative Coding Level of Care Code Off vis,est,level 4 Exam Problem Focused Diagnoses Metastasis to liver of unknown origin C78.7; C80.1 Malignant ascites R18.0 Ascites type: malignant Mediastinal lymphadenopathy R59.0 Retroperitoneal lymphadenopathy R59.0 Mesenteric lymphadenopathy R59.0 Pelvic lymphadenopathy R59.0 Other ulcerative colitis with rectal bleeding K51.811 Ulcerative colitis location: other ulcerative colitis Digestive disease complication type: with rectal bleeding Iron deficiency anemia due to chronic blood loss D50.0 Assessment and Plan Assessment and Plan (1) Metastasis to liver of unknown origin: Status: Chronic Comment: Most likely colorectal primary. (2) Ascites: Status: Chronic Qualifiers: Ascites type: malignant Qualified Code(s): R18.0 - Malignant ascites (3) Mediastinal lymphadenopathy: Status: Chronic (4) Retroperitoneal lymphadenopathy: Status: Chronic (5) Mesenteric lymphadenopathy: Status: Chronic (6) Pelvic lymphadenopathy: Status: Chronic (7) Ulcerative colitis: Status: Chronic Qualifiers: Ulcerative colitis location: other ulcerative colitis Digestive diseasecomplication type: with rectal bleeding Qualified Code(s): K51.811 - Other ulcerative colitis with rectal bleeding Comment: Hx ileal-anal anastomosis with J-pouch (8) Iron deficiency anemia due to chronic blood loss: Status: Chronic Orders: Orders Iron+Iron Binding Capacity Today C78.7 - Secondary malignant neoplasm of liver and intrahepatic bile duct, C80.1 - Malignant (primary) neoplasm, unspecified, D50.0 - Iron deficiency anemia secondary to blood loss (chronic), K51.811 - Other ulcerative colitis with rectal bleeding Ferritin Today C78.7 - Secondary malignant neoplasm of liver and intrahepatic bile duct, C80.1 - Malignant (primary) neoplasm, unspecified, D50.0 - Iron deficiency anemia secondary to blood loss (chronic), K51.811 - Other ulcerative colitis with rectal bleeding Plan 55-year-old male history notable for ulcerative colitis status post total proctocolectomy with J-pouch in 1993 at [facility] (extensive colitis and low-grade dysplasia). Patient was hospitalized in November 2024 with severe anemia due to acute and chronic GI bleeding. Imaging shows a hepatic mass on biopsy and adenocarcinoma with intestinal differentiation most likely metastaticadenocarcinoma of unknown primary most likely primary colorectal. Next generation sequence colorectal panel was negative including K-garcia NRAS and IDH 1/IDH 2 mutation negative[address] MSI intact. CT scan of November 2024 suggested necrotic J-pouch anastomosis but direct visualization by endoscopy and biopsies did not confirm that. PET/CT December 2024 shows avid uptake in the left hepatic lobe. In addition patient has mediastinal lymphadenopathy, diffuse retroperitoneal, periportal, mesenteric and bilateral pelvic lymphadenopathy and ascites although the uptake in these was less intense and by PET could not be distinguished whether malignant or representing granulomatous disease. January 2025 underwent EGD and pouch colonoscopies at [facility] and no primary was identified. A number of tumor markers were drawn during hospital stay but none are diagnostic of any specific primary and cannot be interpreted. Notably CEA was not elevated. Case was discussed in multidisciplinary tumor conference at [facility] prompting additional pathology and additional liver biopsy. 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 Started [id number] March 18, 2026, no G3-4 toxicities Chronic comorbid conditions: Atrial fibrillation, not anticoagulated due to GI bleeding November 2024 and no identified reversible source, nonrheumatic valvular heart disease, cardiomyopathy with chronic congestive heart failure, history of Churg-Geronimo syndrome, history of ulcerative colitis as above, patient lives alone with no social support apart from what his [id number] canprovide (ex- disabled in a long term facility). Plan: 1. Continue systemic chemotherapy with palliative intent modified FOLFOX 6. Proceed with cycle 6 today. IVFs with pump DC on 06/10/25. Order for elective imaging with CT C/A/P to be completed 06/03/25. 2. Neuropathy- involving fingertips. Grade 1. Continue to monitor. 3. Diarrhea- chronic, grade 1. No evidence of dehydration or electrolyte abnormalities. Continue electrolyte rich solutions PO and loperamide. 4. Anemia- continues, stable. Given reports of increased hematochezia, repeat iron studies. RTO 06/10/25 to review [address]s and consider for ?c7 FOLFOX. 05/27/25 0835 <Electronically signed by Geeta bates NP FEATHER SHAPER-C> Date _ Geeta Rodgers NP, NP-C Cosigner Signature: Date (if applicable) CC: ~ [employer] Work Phone: [phone]) [phone] [facility] [address] [address] OFFICE VISIT Date of Service: 05/12/25 0753 MR#: [id number] Acct: [id number] Name: DENY BRONSON Shai Rep #: [id number] : 1970 From: Geeta Frank ch, NP FEATHER SHAPER-C Age/Sex: 55/M Location: [facility] [place] Status: Signed HPI Subjective Date of Service 05/12/25 Chief Complaint Metastatic cancer to liver History of Present Illness 55-year-old male past medical history notable for ulcerative colitis status posttotal proctocolectomy in 1993 with a J-pouch at [facility] and pathology reported extensive chronic and active colitis and low-grade epithelial dysplasia.. He was hospitalized in November 2024 after hereported bleeding and black melanotic stools was found with a hemoglobin of 5.7 g per DL. November 22, 2024 CTA: IMPRESSION: 1. No acute pulmonary embolism within the proximal pulmonary arteries. 2. Severe cardiomegaly. Dilation of the main pulmonary trunk, which can be seenwith pulmonary artery hypertension. 3. Dilation of the [...] granulomatosis with polyangiitis. Correlation with prior imaging recommendedas neoplasm can not be excluded. November 24, [...] biopsy: Fragments of duodenal mucosa with mild Ernst?s gland hyperplasia. B. Colon anastomosis, biopsy: Fragments of colonic mucosa with extensive ulceration, acute and chronic inflammation, granulation tissue reaction and reactive epithelial changes November 25, 2024 Liver mass, CT guided core biopsy: Well differentiated glands with intestinal differentiation, consistent with well-differentiated adenocarcinoma. Liver tissue is not present. The specimen is sent to [facility] for expert opinion, reviewed by Dr. Harding and theabove diagnosis is rendered. The complete report is [...] and pouchoscopy with biopsies: No primary identified. February 26, 2025 CT-guided liver biopsy #2 further testing at [facility]: MICROSCOPIC DIAGNOSIS A. Liver, ?neoplasm?, CT-guided core biopsy: - Well-differentiated adenocarcinoma ? see note and Comment. o Note: This histology is similar to the previous biopsy ([id number]) with the addition of foci suggestive of desmoplasia and invasion noted, supporting a neoplastic process. IHC (performed at [facility] and [facility]) show the tumor cells to be positive for CDX2, Villin, CK20, CK19, and SATB2 (patchy); and negative for CK7. o These findings are most consistent with a gastrointestinal primary. Although cholangiocarcinoma cannot be entirely ruled out, the findings strongly raise the possibility of a metastasis from a colorectal primary. Treatment summary and response: Modified FOLFOX 6 March 18, 2025 Interval History The patient is presenting to clinic today for an evaluation anticipating he willbegin cycle 5 FOLFOX. Appetite continues to improve, PO fluid intake described as adequate. Taking in 1 Gatorade per day. Fatigue improved. Notes numbness/tingling intermittently in fingertips down to second knuckle. Notinterfering with ADLs. Chronic diarrhea continues, modestly improved estimates 5-10 small loose (no liquid) BMs/day. No longer bloody. Responds well to loperamide. No change in occasional, nonproductive cough and exertional dyspnea. Specifically denies fever/chills, headache, dizziness, CP, palpitations, N/V, abd pain. [facility] Medical History Wears glasses Cancer Anemia Easy [...] liver of unknown origin Ulcerative colitis Ascites Atrial fibrillation HUANG (dyspnea on exertion) Nonrheumatic aortic (valve) stenosis Bicuspid aortic valve Acute kidney injury Chest pain, unspecified Asthma Churg-Geronimo syndrome Surgical History History of esophagogastroduodenoscopy (EGD) Hx of surgical procedure S/P proctocolectomy (~1993) Hx laparoscopic cholecystectomy History of right and left heart catheterization (LHC) (~07/12/01) History of aortic valve replacement with bioprosthetic valve Family History Other Heart disease Social History household members: spouse housing: house Smoking Status: Never smoker alcohol intake: current alcohol intake frequency: holidays/special occasions only details: occasional substance use type: does not use ROS ROS Narrative Negative except as documented in the interval HPI Intake Vital Signs 04/29/25 09:30 04/30/25 20:44 05/12/25 07:54 05/12/25 07:58 Height 6 ft 3 in 6 ft 3 in 6 ft 3 in 6 ft 3 in Weight: 205 lb 7 oz BMI 25.7 BP 100/63 Blood Pressure Location Lt brachial Position Sitting Respiration 16 Pulse 82 Pulse Source Monitor Temp 98.4 F Temperature Source Temporal Artery Pulse Oximetry (%) 99 Oxygen Delivery Method room air Intake Is patient in pain?: Yes (bilateral ear) Pain scale (1-10): 1 Allergies acetaminophen Allergy (Mild, Verified 05/12/25 07:58) Itching Penicillins (PCN) Allergy (Verified 05/12/25 07:58) PT UNSURE OF REACTION Medications ?Medication ?Instructions ?Recorded ?Confirmed ?Type guaifenesin 1,200 mg tablet, 1,200 mg PO DAILY 11/22/ 5 05/12/25 History extended release 12 hr (Mucinex) cholestyramine-aspartame 4 gram 4 g PO TID #239.4 gram s 12/05/24 05/12/25 Rx oral powder (Cholestyramine Light) metoprolol succinate 25 mg 25 mg PO QDAY #90 tabs 12/0205/12/25 Rx tablet,extended release 24 hr (Toprol XL) loperamide 2 mg capsule (Imodium 2 mg PO QDAY 02/09/25 05/12/25 History A-D) lidocaine-prilocaine 2.5 %-2.5 % 1 applic topical ONCE PRN port 03/18/25 05/12/25 Rx topical cream access 30 days #30 grams ondansetron 8 mg disintegrating 8 mg PO Q8H PRN nausea and 03/18/25 05/12/25 Rx tablet vomiting #30 tabs prochlorperazine maleate 10 mg 10 mg PO Q6H PRN nausea and 03/18/25 05/12/25 Rx tablet vomiting #30 tabs pantoprazole 40 mg tablet,delayed 40 mg PO DAILY #30 t abs 05/12/25 05/12/25 Rx release Have you fallen in the past year?: No Central Venous Access Central Venous Access: Yes Port/PICC: Port Laboratory Tests 05/12/25 07:44 WBC 10.2 Hgb 10.8 L Hct 34.8 L Plt Count 179 Absolute Neuts (auto) 7.6 Sodium 138 Potassium 3.7 Chloride 109 H Carbon Dioxide 19.0 L BUN 16 Creatinine 0.70 Glucose 98 Calcium 8.4 Total Bilirubin 1.44 H AST 68 H ALT 59 H Alkaline Phosphatase 490 H Albumin 3.4 L Exam Physical Exam Narrative ECOG 2 Const no apparent distress General Appearance: ill appearing Positive for chronically, frail and appears older than stated age HEENT Face and Sinus: normal facial exam Eyes General Eye: normal appearance of both eyes Neck no lymphadenopathy and no JVD Resp clear to auscultation bilaterally Cardio Rhythm: abnormal rhythm GI soft to palpation and non-tender Inspection: visible herniation and other Other Details: Abdominal and inguinal hernias Palpation: hepatomegaly Back/Spine no thoracic nor lumbar tenderness Extremity General Extremity: edema bilateral lower extremity Details: mild; Negative for clubbing or cyanosis Skin no wounds Neuro oriented x3, CN's II-XII intact bilaterally and moves all extremities Speech: speech normal Gait (Neuro): normal gait Psych cooperative Coding Level of Care Code Off vis,est,level 4 Exam Problem Focused Diagnoses Metastasis to liver of unknown origin C78.7; C80.1 Malignant ascites R18.0 Ascites type: malignant Mediastinal lymphadenopathy R59.0 Retroperitoneal lymphadenopathy R59.0 Mesenteric lymphadenopathy R59.0 Pelvic lymphadenopathy R59.0 Other ulcerative colitis with rectal bleeding K51.811 Ulcerative colitis location: other ulcerative colitis Digestive disease complication type: with rectal bleeding Iron deficiency anemia due to chronic blood loss D50.0 Assessment and Plan Assessment and Plan (1) Metastasis to liver of unknown origin: Status: Chronic Comment: Most likely colorectal primary. (2) Ascites: Status: Chronic Qualifiers: Ascites type: malignant Qualified Code(s): R18.0 - Malignant ascites (3) Mediastinal lymphadenopathy: Status: Chronic (4) Retroperitoneal lymphadenopathy: Status: Chronic (5) Mesenteric lymphadenopathy: Status: Chronic (6) Pelvic lymphadenopathy: Status: Chronic (7) Ulcerative colitis: Status: Chronic Qualifiers: Ulcerative colitis location: other ulcerative colitis Digestive diseasecomplication type: with rectal bleeding Qualified Code(s): K51.811 - Other ulcerative colitis with rectal bleeding Comment: Hx ileal-anal anastomosis with J-pouch (8) Iron deficiency anemia due to chronic blood loss: Status: Chronic Orders: Orders Bilirubin, Direct Today R17 - Unspecified jaundice LDH Today C78.7 - Secondary malignant neoplasm of liver and intrahepatic bile duct, C80.1 - Malignant (primary) neoplasm, unspecified CT Chest, Abd, Pel w/Contrast 06/01/25 C78.7 - Secondary malignant neoplasm of liver and intrahepatic bile duct, C80.1 - Malignant (primary) neoplasm, unspecified, R59.0 - Localized enlarged lymph nodes Medications: Refilled pantoprazole 40 mg PO DAILY 30 tabs 2RF Plan 55-year-old male history notable for ulcerative colitis status post total proctocolectomy with J-pouch in 1993 at [facility] (extensive colitis and low-grade dysplasia). Patient was hospitalized in November 2024 with severe anemia due to acute and chronic GI bleeding. Imaging shows a hepatic mass on biopsy and adenocarcinoma with intestinal differentiation most likely metastaticadenocarcinoma of unknown primary most likely primary colorectal. Next generation sequence colorectal panel was negative including K-garcia NRAS and IDH 1/IDH [address] mutation negative[address]SI intact[address] CT scan of November 2024 suggested necrotic J-pouch anastomosis but direct visualization by endoscopy and biopsies did not confirm that. PET/CT December 2024 shows avid uptake in the left hepatic lobe. In addition patient has mediastinal lymphadenopathy, diffuse retroperitoneal, periportal, mesenteric and bilateral pelvic lymphadenopathyand ascites although the uptake in these was less intense and by PET could not be distinguished whether malignant or representing granulomatous disease. January 2025 underwent EGD and pouch colonoscopies at [facility] and no primary was identified. A number of tumor markers were drawn during hospital stay but none are diagnostic of any specific primary and cannot be interpreted. Notably CEA was not elevated. Case was discussed in multidisciplinary tumor conference at [facility] prompting additional pathology and additional liver biopsy. 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 Started [id number] March 18, 2026, no G3-4 toxicities Chronic comorbid conditions: Atrial fibrillation, not anticoagulated due to GI bleeding November 2024 and no identified reversible source, nonrheumatic valvular heart disease, cardiomyopathy with chronic congestive heart failure, history of Churg-Geronimo syndrome, history of ulcerative colitis as above, patient lives alone with no social support apart from what his [id number] canprovide (ex- disabled in a long term facility). Plan: 1. Continue systemic chemotherapy with palliative intent modified FOLFOX 6. Proceed with cycle 5 today. Order for elective imaging with CT C/A/P to be completed between cycles 5 & 6. 2. Neuropathy- involving fingertips. Grade 1. Continue to monitor. 3. Diarrhea- chronic, grade 1. No evidence of dehydration or electrolyte abnormalities. Continue electrolyte rich solutions PO and loperamide. 4. Elevated t bili- request d bili level. RTO 05/27 for ?c6 FOLFOX. Clinical Quality Measures Falls Risk Screening/Assistive Devices Have you fallen in the past year?: No 05/12/25 0843 h FEATHER SHAPER FEATHER SHAPER-C> Date _ Geeta Ana Maria FEATHER SHAPER FEATHER SHAPER-C Cosigner Signature: Date (if applicable) CC: JACK Mccall ~ [facility]08-05-2025 Progress note Author Geeta Rodgers [facility] Note Date/Time May 12, 2025 8:4 3am [facility] [address] [place] [address] OFFICE VISIT Date of Service: 05/12/25 0753 MR#: [id number] Acct: [id number] Name: DENY BRONSON Rep #: [id number] : 1970 From: Geeta Frank ch FEATHER SHAPER FEATHER SHAPER-C Age/Sex: 55/M Location: [facility] Status: Signed HPI Subjective Date of Service 05/12/25 Chief Complaint Metastatic cancer to liver History of Present Illness 55-year-old male past medical history notable for ulcerative colitis status posttotal proctocolectomy in 1993 with a J-pouch at [facility] and pathology reported extensive chronic and active colitis and low-grade epithelial dysplasia.. He was hospitalized in November 2024 after he reported bleeding and black melanotic stools was found with a hemoglobin of 5.7 g per DL. November 22, 2024 CTA: IMPRESSION: 1. No acute pulmonary embolism within the proximal pulmonary arteries. 2. Severe cardiomegaly. Dilation of the main pulmonary trunk, which can be seenwith pulmonary artery hypertension. 3. Dilation of the [...] granulomatosis with polyangiitis. Correlation with prior imaging recommendedas neoplasm can not be excluded. November 24, [...] biopsy: Fragments of duodenal mucosa with mild Ernst?s gland hyperplasia. B. Colon anastomosis, biopsy: Fragments of colonic mucosa with extensive ulceration, acute and chronic inflammation, granulation tissue reaction and reactive epithelial changes November 25, 2024 Liver mass, CT guided core biopsy: Well differentiated glands with intestinal differentiation, consistent with well-differentiated adenocarcinoma. Liver tissue is not present. The specimen is sent to [facility] for expert opinion, reviewed by Dr. Harding and theabove diagnosis is rendered. The complete report is [...] and pouchoscopy with biopsies: No primary identified. February 26, 2025 CT-guided liver biopsy #2 further testing at [facility] Main campus: MICROSCOPIC DIAGNOSIS A. Liver, ?neoplasm?, CT-guided core biopsy: - Well-differentiated adenocarcinoma ? see note and Comment. o Note: This histology is similar to the previous biopsy ([id number]) with the addition of foci suggestive of desmoplasia and invasion noted, supporting a neoplastic process. IHC (performed at [facility] and [facility]) show the tumor cells to be positive for CDX2, Villin, CK20, CK19, and SATB2 (patchy); and negative for CK7. o These findings are most consistent with a gastrointestinal primary. Although cholangiocarcinoma cannot be entirely ruled out, the findings strongly raise the possibility of a metastasis from a colorectal primary. Treatment summary and response: Modified FOLFOX 6 March 18, 2025 Interval History The patient is presenting to clinic today for an evaluation anticipating he willbegin cycle 5 FOLFOX. Appetite continues to improve, PO fluid intake described as adequate. Taking in 1 Gatorade per day. Fatigue improved. Notes numbness/tingling intermittently in fingertips down to second knuckle. Notinterfering with ADLs. Chronic diarrhea continues, modestly improved estimates 5-10 small loose (no liquid) BMs/day. No longer bloody. Responds well to loperamide. No change in occasional, nonproductive cough and exertional dyspnea. Specifically denies fever/chills, headache, dizziness, CP, palpitations, N/V, abd pain. [facility] Medical History Wears glasses Cancer Anemia Easy [...] liver of unknown origin Ulcerative colitis Ascites Atrial fibrillation HUANG (dyspnea on exertion) Nonrheumatic aortic (valve) stenosis Bicuspid aortic valve Acute kidney injury Chest pain, unspecified Asthma Churg-Geronimo syndrome Surgical History History of esophagogastroduodenoscopy (EGD) Hx of surgical procedure S/P proctocolectomy (~1993) Hx laparoscopic cholecystectomy History of right and left heart catheterization (LHC) (~07/12/01) History of aortic valve replacement with bioprosthetic valve Family History Other Heart disease Social History household members: spouse housing: house Smoking Status: Never smoker alcohol intake: current alcohol intake frequency: holidays/special occasions only details: occasional substance use type: does not use ROS ROS Narrative Negative except as documented in the interval HPI Intake Vital Signs 04/29/25 09:30 04/30/25 20:44 05/12/25 07:54 05/12/25 07:58 Height 6 ft 3 in 6 ft 3 in 6 ft 3 in 6 ft 3 in Weight: 205 lb 7 oz BMI 25.7 BP 100/63 Blood Pressure Location Lt brachial Position Sitting Respiration 16 Pulse 82 Pulse Source Monitor Temp 98.4 F Temperature Source Temporal Artery Pulse Oximetry (%) 99 Oxygen Delivery Method room air Intake Is patient in pain?: Yes (bilateral ear) Pain scale (1-10): 1 Allergies acetaminophen Allergy (Mild, Verified 05/12/25 07:58) Itching Penicillins (PCN) Allergy (Verified 05/12/25 07:58) PT UNSURE OF REACTION Medications ?Medication ?Instructions ?Recorded ?Confirmed ?Type guaifenesin 1,200 mg tablet, 1,200 mg PO DAILY 5 05/12/25 History extended release 12 hr (Mucinex) cholestyramine-aspartame 4 gram 4 g PO TID #239.4 gram s 12/05/24 05/12/25 Rx oral powder (Cholestyramine Light) metoprolol succinate 25 mg 25 mg PO QDAY #90 tabs 12/0205/12/25 Rx tablet,extended release 24 hr (Toprol XL) loperamide 2 mg capsule (Imodium 2 mg PO QDAY 02/09/25 05/12/25 History A-D) lidocaine-prilocaine 2.5 %-2.5 % 1 applic topical ONCE PRN port 03/18/25 05/12/25 Rx topical cream access 30 days #30 grams ondansetron 8 mg disintegrating 8 mg PO Q8H PRN nausea and 03/18/25 05/12/25 Rx tablet vomiting #30 tabs prochlorperazine maleate 10 mg 10 mg PO Q6H PRN nausea and 03/18/25 05/12/25 Rx tablet vomiting #30 tabs pantoprazole 40 mg tablet,delayed 40 mg PO DAILY #30 t abs 05/12/25 05/12/25 Rx release Have you fallen in the past year?: No Central Venous Access Central Venous Access: Yes Port/PICC: Port Laboratory Tests 05/12/25 07:44 WBC 10.2 Hgb 10.8 L Hct 34.8 L Plt Count 179 Absolute Neuts (auto) 7.6 Sodium 138 Potassium 3.7 Chloride 109 H Carbon Dioxide 19.0 L BUN 16 Creatinine 0.70 Glucose 98 Calcium 8.4 Total Bilirubin 1.44 H AST 68 H ALT 59 H Alkaline Phosphatase 490 H Albumin 3.4 L Exam Physical Exam Narrative ECOG 2 Const no apparent distress General Appearance: ill appearing Positive for chronically, frail and appears older than stated age HEENT Face and Sinus: normal facial exam Eyes General Eye: normal appearance of both eyes Neck no lymphadenopathy and no JVD Resp clear to auscultation bilaterally Cardio Rhythm: abnormal rhythm GI soft to palpation and non-tender Inspection: visible herniation and other Other Details: Abdominal and inguinal hernias Palpation: hepatomegaly Back/Spine no thoracic nor lumbar tenderness Extremity General Extremity: edema bilateral lower extremity Details: mild; Negative for clubbing or cyanosis Skin no wounds Neuro oriented x3, CN's II-XII intact bilaterally and moves all extremities Speech: speech normal Gait (Neuro): normal gait Psych cooperative Coding Level of Care Code Off vis,est,level 4 Exam Problem Focused Diagnoses Metastasis to liver of unknown origin C78.7; C80.1 Malignant ascites R18.0 Ascites type: malignant Mediastinal lymphadenopathy R59.0 Retroperitoneal lymphadenopathy R59.0 Mesenteric lymphadenopathy R59.0 Pelvic lymphadenopathy R59.0 Other ulcerative colitis with rectal bleeding K51.811 Ulcerative colitis location: other ulcerative colitis Digestive disease complication type: with rectal bleeding Iron deficiency anemia due to chronic blood loss D50.0 Assessment and Plan Assessment and Plan (1) Metastasis to liver of unknown origin: Status: Chronic Comment: Most likely colorectal primary. (2) Ascites: Status: Chronic Qualifiers: Ascites type: malignant Qualified Code(s): R18.0 - Malignant ascites (3) Mediastinal lymphadenopathy: Status: Chronic (4) Retroperitoneal lymphadenopathy: Status: Chronic (5) Mesenteric lymphadenopathy: Status: Chronic (6) Pelvic lymphadenopathy: Status: Chronic (7) Ulcerative colitis: Status: Chronic Qualifiers: Ulcerative colitis location: other ulcerative colitis Digestive diseasecomplication type: with rectal bleeding Qualified Code(s): K51.811 - Other ulcerative colitis with rectal bleeding Comment: Hx ileal-anal anastomosis with J-pouch (8) Iron deficiency anemia due to chronic blood loss: Status: Chronic Orders: Orders Bilirubin, Direct Today R17 - Unspecified jaundice LDH Today C78.7 - Secondary malignant neoplasm of liver and intrahepatic bile duct, C80.1 - Malignant (primary) neoplasm, unspecified CT Chest, Abd, Pel w/Contrast 06/01/25 C78.7 - Secondary malignant neoplasm of liver and intrahepatic bile duct, C80.1 - Malignant (primary) neoplasm, unspecified, R59.0 - Localized enlarged lymph nodes Medications: Refilled pantoprazole 40 mg PO DAILY 30 tabs 2RF Plan 55-year-old male history notable for ulcerative colitis status post total proctocolectomy with J-pouch in 1993 at [facility] (extensive colitis and low-grade dysplasia). Patient was hospitalized in November 2024 with severe anemia due to acute and chronic GI bleeding. Imaging shows a hepatic mass on biopsy and adenocarcinoma with intestinal differentiation most likely metastaticadenocarcinoma of unknown primary most likely primary colorectal. Next generation sequence colorectal panel was negative including K-garcia NRAS and IDH 1/IDH [address] mutation negative[address] MSI intact. CT scan of November 2024 suggested necrotic J-pouch anastomosis but direct visualization by endoscopy and biopsies did not confirm that. PET/CT December 2024 shows avid uptake in the left hepatic lobe. In addition patient has mediastinal lymphadenopathy, diffuse retroperitoneal, periportal, mesenteric and bilateral pelvic lymphadenopathy and ascites although the uptake in these was less intense and by PET could not be distinguished whether malignant or representing granulomatous disease. January 2025 underwent EGD and pouch colonoscopies at [facility] and no primary was identified. A number of tumor markers were drawn during hospital stay but none are diagnostic of any specific primary and cannot be interpreted. Notably CEA was not elevated. Case was discussed in multidisciplinary tumor conference at [facility] prompting additional pathology and additional liver biopsy. 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 Started mFOLFOX6 March 18, 2026, no G3-4 toxicities Chronic comorbid conditions: Atrial fibrillation, not anticoagulated due to GI bleeding November 2024 and no identified reversible source, nonrheumatic valvular heart disease, cardiomyopathy with chronic congestive heart failure, history of Churg-Geronimo syndrome, history of ulcerative colitis as above, patient lives alone with no social support apart from what his [id number] canprovide (ex- disabled in a long term facility). Plan: 1. Continue systemic chemotherapy with palliative intent modified FOLFOX 6. Proceed with cycle 5 today. Order for elective imaging with CT C/A/P to be completed between cycles 5 & 6. 2. Neuropathy- involving fingertips. Grade 1. Continue to monitor. 3. Diarrhea- chronic, grade 1. No evidence of dehydration or electrolyte abnormalities. Continue electrolyte rich solutions PO and loperamide. 4. Elevated t bili- request d bili level. RTO 05/27 for ?c6 FOLFOX. Clinical Quality Measures Falls Risk Screening/Assistive Devices Have you fallen in the past year?: No 05/12/25 0843 <Electronically signed by Geeta bates NP FEATHER SHAPER-C> Date _ Geeta Rodgers NP FEATHER SHAPER-C Cosigner Signature: Date (if applicable) CC: JACK Mccall ~ [employer] Work Phone: 1(231) 121-417007-24-2025 Discharge summary [facility] Medical Records Department [address] [place] [address] Emergency Department Summary 04/30/25 MR#: [id number] Acct: [id number] Name: DENY BRONSON Rep #:[id number] : 1970 55 From: Gabo Whelan MD PCP: JACK Mccall Status:REG ER Location: ED HPI History of Present Illness Chief Complaint: Other, Pain/Inj Narrative Narrative: 55-year-old male past medical history of liver carcinoma is receiving continuousinfusion of chemotherapy into a Mediport on his right chest. He has been receiving this continuous infusion and is supposed to be done tomorrow morning at 11 AM. He had some of the tubing hooked to his pants, and when he went to use the restroom, lowered his pants, and the port access was ripped from the Mediport. Some of the infusion contents spilled onto the skin on his right chest. The infusion continued to run. He was unsure as to what to do so he presents to the emergency department with his port to be accessed and having some of the infusion still spilled on his chest and with the lot of the box running. There is no way for him to turn off the infusion. [facility] Medical History Wears glasses Cancer Anemia Easy [...] liver of unknown origin Ulcerative colitis Ascites Atrial fibrillation HUANG (dyspnea on exertion) Nonrheumatic aortic (valve) stenosis Bicuspid aortic valve Acute kidney injury Chest pain, unspecified Asthma Churg-Geronimo syndrome Home Medications ?Medication ?Instructions ?Recorded ?Last Taken ?Type guaifenesin 1,200 mg tablet, 1,200 mg PO DAILY 5 11/22/24 History extended release 12 hr (Mucinex) pantoprazole 40 mg tablet,delayed 40 mg PO [...] mg PO QDAY 02/09/25 Unknown History A-D) lidocaine-prilocaine 2.5 %-2.5 % 1 applic topical ONCE PRN port 03/18/25 Unknown Rx topical cream access 30 days #30 grams ondansetron 8 mg disintegrating 8 mg PO Q8H PRN nausea and 03/18/25 Unknown Rx tablet vomiting #30 tabs prochlorperazine maleate 10 mg 10 mg PO Q6H PRN nausea and 03/18/25 Unknown Rx tablet vomiting #30 tabs Allergy/AdvReac Type Severity Reaction Status Date / Time acetaminophen Allergy Mild Itching Verified 04/29/25 09:29 Penicillins (PCN) Allergy PT UNSURE Verified 04/29/25 09:29 OF REACTION Family History Other Heart disease Surgical History History of esophagogastroduodenoscopy (EGD) Hx of surgical procedure S/P proctocolectomy (~1993) Hx laparoscopic cholecystectomy History of right and left heart catheterization (LHC) (~07/12/01) History of aortic valve replacement with bioprosthetic valve Social History household members: spouse housing: house Smoking Status: Never smoker alcohol intake: current alcohol intake frequency: holidays/special occasions only details: occasional substance use type: does not use ROS ROS ED ROS Narrative Review of systems positive for contact with infusion contents of chemotherapy onright chest. Mediport on right chest D accessed accidentally. Denies other problems. EXAM Physical Exam Narrative Exam Narrative: Afebrile. Vital signs noted. Nontoxic-appearing. Inspection of the Mediport on the right chest wallshows no evidence of active bleeding. No erythema to skin. Cardiovascular examination regular rate and rhythm. Const Vital Signs: 04/30/25 20:44 04/30/25 20:44 Temperature 97.6 F L Temperature Source Oral Respiratory Effort Normal Non-Labored Respiratory Pattern Normal MDM MDM MDM Narrative Medical decision making narrative: I do not feel differential diagnosis is applicable in this. His port has been deaccessed. There waschemotherapy infusion liquid contacted on his skin. RN has contacted roving court reporter as well as oncology pharmacist. As the patient has been receiving an infusion intravenously, it is okay for him to contact his own skin and use soap and warm water to cleanse the area. Additionally, they state that themachine should be clamped, and he should report to the infusion center first thing tomorrow morningso they can calculate how much chemotherapy is leftand how much more he will require. At this pointin time, I do not feel he requires any laboratory work or imaging. RN was told not to reaccessed his portand supervisor covering and lining his infusion again. Disposition is discharged home in stable condition. Discharge Plan Triage Chief Complaint: Other, Pain/Inj ED Provider: Gabo Whelan Dx/Rx/DC Orders Clinical Impression: Complication of infusion, Instrumnt fail-infusion Instructions: Cancer Inject Site Reaction Prescriptions: No Action Cholestyramine Light 4 gram powder 4 g [...] extended release 12hr 1,200 mg PO DAILY pantoprazole 40 mg tablet,delayed release (DR/EC) 40 mg PO DAILY Qty: 30 2RF lidocaine-prilocaine 2.5-2.5 % cream 1 applic topical ONCE PRN (Reason: port access) 30 Days Qty: 30 2RF ondansetron 8 mg tablet,disintegrating 8 mg PO Q8H PRN (Reason: nausea and vomiting) Qty: 30 2RF prochlorperazine maleate 10 mg tablet 10 mg PO Q6H PRN (Reason: nausea and vomiting) Qty: 30 2RF Primary Care Provider: Johny Rodríguez Referrals: Johny Rodríguez PA [Primary Care Provider] - Activity Restrictions/Additional Instructions: Report directly to the infusion center first thing tomorrow morning with your infusion instrument/machine. They will need to figure out how much chemotherapyyou still require. Wash the area with warmwater and soap where you had the chemotherapy contact your skin. Print Language: Iranian Disposition Disposition: Home, Self Care What to do if you have Problems For any increased pain, shortness of breath, bleeding, nausea or vomiting, chestpain, or any unexpected problems, contact your Primary Care Provider. Call [facility] ([phone]) or report tothe closest Emergency Room. Call 911 if necessary. 04/30/252121 Cosigner Signature (if applicable): CC: JACK Mccall ~ Signed [facility]07-24-2025 Discharge summary Author Gabo Whelan [facility] Note Date/Time April 30, 2025 9:22 pm [facility] Medical Records Department [address] [place] [address] Emergency Department Summary 04/30/25 MR#: [id number] Acct: [id number] Name: DENY BRONSON Rep #:[id number] : 1970 55 From: Gabo Whelan MD PCP: JACK Mccall Status:REG ER Location: ED HPI History of Present Illness Chief Complaint: Other, Pain/Inj Narrative Narrative: 55-year-old male past medical history of liver carcinoma is receiving continuousinfusion of chemotherapy into a Mediport on his right chest. He has been receiving this continuous infusion and is supposed to be done tomorrow morning at 11 AM. He had some of the tubing hooked to his pants, and when he went to use the restroom, lowered his pants, and the port access was ripped from the Mediport. Some of the infusion contents spilled onto the skin on his right chest. The infusion continued to run. He was unsure as to what to do so he presents to the emergency department with his port to be accessed and having some of the infusion still spilled on his chest and with the lot of the box running. There is no way for him to turn off the infusion. [facility] Medical History Wears glasses Cancer Anemia Easy [...] liver of unknown origin Ulcerative colitis Ascites Atrial fibrillation HUANG (dyspnea on exertion) Nonrheumatic aortic (valve) stenosis Bicuspid aortic valve Acute kidney injury Chest pain, unspecified Asthma Churg-Geronimo syndrome Home Medications ?Medication ?Instructions ?Recorded ?Last Taken ?Type guaifenesin 1,200 mg tablet, 1,200 mg PO DAILY 5 11/22/24 History extended release 12 hr (Mucinex) pantoprazole 40 mg tablet,delayed 40 mg PO [...] mg PO QDAY 02/09/25 Unknown History A-D) lidocaine-prilocaine 2.5 %-2.5 % 1 applic topical ONCE PRN port 03/18/25 Unknown Rx topical cream access 30 days #30 grams ondansetron 8 mg disintegrating 8 mg PO Q8H PRN nausea and 03/18/25 Unknown Rx tablet vomiting #30 tabs prochlorperazine maleate 10 mg 10 mg PO Q6H PRN nausea and 03/18/25 Unknown Rx tablet vomiting #30 tabs Allergy/AdvReac Type Severity Reaction Status Date / Time acetaminophen Allergy Mild Itching Verified 04/29/25 09:29 Penicillins (PCN) Allergy PT UNSURE Verified 04/29/25 09:29 OF REACTION Family History Other Heart disease Surgical History History of esophagogastroduodenoscopy (EGD) Hx of surgical procedure S/P proctocolectomy (~1993) Hx laparoscopic cholecystectomy History of right and left heart catheterization (LHC) (~07/12/01) History of aortic valve replacement with bioprosthetic valve Social History household members: spouse housing: house Smoking Status: Never smoker alcohol intake: current alcohol intake frequency: holidays/special occasions only details: occasional substance use type: does not use ROS ROS ED ROS Narrative Review of systems positive for contact with infusion contents of chemotherapy onright chest. Mediport on right chest D accessed accidentally. Denies other problems. EXAM Physical Exam Narrative Exam Narrative: Afebrile. Vital signs noted. Nontoxic-appearing. Inspection of the Mediport on the right chest wall shows no evidence of active bleeding. No erythema to skin. Cardiovascular examination regular rate and rhythm. Const Vital Signs: 04/30/25 20:44 04/30/25 20:44 Temperature 97.6 F L Temperature Source Oral Respiratory Effort Normal Non-Labored Respiratory Pattern Normal MDM MDM MDM Narrative Medical decision making narrative: I do not feel differential diagnosis is applicable in this. His port has been deaccessed. There was chemotherapy infusion liquid contacted on his skin. RN has contacted roving court reporter as well as oncology pharmacist. As the patient has been receiving an infusion intravenously, it is okay for him to contact his own skin and use soap and warm water to cleanse the area. Additionally, they state that the machine should be clamped, and he should report to the infusion center first thing tomorrow morning so they can calculate how much chemotherapy is leftand how much more he will require. At this point in time, I do not feel he requires any laboratory work or imaging. RN was told not to reaccessed his portand supervisor covering and lining his infusion again. Disposition is discharged home in stable condition. Discharge Plan Triage Chief Complaint: Other, Pain/Inj ED Provider: Gabo Whelan Dx/Rx/DC Orders Clinical Impression: Complication of infusion, Instrumnt fail-infusion Instructions: Cancer Inject Site Reaction Prescriptions: No Action Cholestyramine Light 4 gram powder 4 g [...] extended release 12hr 1,200 mg PO DAILY pantoprazole 40 mg tablet,delayed release (DR/EC) 40 mg PO DAILY Qty: 30 2RF lidocaine-prilocaine 2.5-2.5 % cream 1 applic topical ONCE PRN (Reason: port access) 30 Days Qty: 30 2RF ondansetron 8 mg tablet,disintegrating 8 mg PO Q8H PRN (Reason: nausea and vomiting) Qty: 30 2RF prochlorperazine maleate 10 mg tablet 10 mg PO Q6H PRN (Reason: nausea and vomiting) Qty: 30 2RF Primary Care Provider: Johny Rodríguez Referrals: Johny Rodríguez PA [Primary Care Provider] - Activity Restrictions/Additional Instructions: Report directly to the infusion center first thing tomorrow morning with your infusion instrument/machine. They will need to figure out how much chemotherapyyou still require. Wash the area with warm water and soap where you had the chemotherapy contact your skin. Print Language: Iranian Disposition Disposition: Home, Self Care What to do if you have Problems For any increased pain, shortness of breath, bleeding, nausea or vomiting, chestpain, or any unexpected problems, contact your Primary Care Provider. Call [facility] ([phone]) or report to the closest Emergency Room. Call 911 if necessary. 04/30/252121 <Electronically signed by Gabo Whelan MD> Cosigner Signature (if applicable): CC: JACK Mccall ~ Signed [facility] Work Phone: 1(792) 256-415107-23-2025 [facility] [address] [place] [address] OFFICE VISIT Date of Service: 04/29/25918 MR#: [id number] Acct: [id number] Name: DENY BRONSON Rep #: [id number] : 1970 From: Geeta Frank ch FEATHER SHAPER FEATHER SHAPER-C Age/Sex: 55/M Location: [facility] Status: Signed HPI Subjective Date of Service 04/29/25 Chief Complaint Metastatic cancer to liver History of Present Illness 55-year-old male past medical history notable for ulcerative colitis status posttotal proctocolectomy in 1993 with a J-pouch at [facility] main campus and pathology reported extensive chronic and active colitis and low-grade epithelial dysplasia.. He was hospitalized in November 2024 after hereported bleeding and black melanotic stools was found with a hemoglobin of 5.7 g per DL. November 22, 2024 CTA: IMPRESSION: 1. No acute pulmonary embolism within the proximal pulmonary arteries. 2. Severe cardiomegaly. Dilation of the main pulmonary trunk, which can be seenwith pulmonary artery hypertension. 3. Dilation of the [...] granulomatosis with polyangiitis. Correlation with prior imaging recommendedas neoplasm can not be excluded. November 24, [...] biopsy: Fragments of duodenal mucosa with mild Ernst?s gland hyperplasia. B. Colon anastomosis, biopsy: Fragments of colonic mucosa with extensive ulceration, acute and chronic inflammation, granulation tissue reaction and reactive epithelial changes November 25, 2024 Liver mass, CT guided core biopsy: Well differentiated glands with intestinal differentiation, consistent with well-differentiated adenocarcinoma. Liver tissue is not present. The specimen is sent to [facility] for expert opinion, reviewed by Dr. Harding and theabove diagnosis is rendered. The complete report is [...] and pouchoscopy with biopsies: No primary identified. February 26, 2025 CT-guided liver biopsy #2 further testing at [facility] Main [place]: MICROSCOPIC DIAGNOSIS A. Liver, ?neoplasm?, CT-guided core biopsy: - Well-differentiated adenocarcinoma ? see note and Comment. o Note: This histology is similar to the previous biopsy ([id number]) with the addition of foci suggestive of desmoplasia and invasion noted, supporting a neoplastic process. IHC (performed at [facility] and [facility]) show the tumor cells to be positive for CDX2, Villin, CK20, CK19, and SATB2 (patchy); and negative for CK7. o These findings are most consistent with a gastrointestinal primary. Although cholangiocarcinoma cannot be entirely ruled out, the findings strongly raise the possibility of a metastasis from a colorectal primary. Treatment summary and response: Modified FOLFOX 6 March 18, 2025 Interval History The patient is presenting to clinic today for an evaluation anticipating he willbegin cycle 4 FOLFOX. Appetite improving, PO fluid intake likely adequate. Fatigue improved. Notes numbness/tingling intermittently in fingertips. Not interfering with ADLs. Chronic diarrhea continues, modestly improved estimates 5-10 small loose (no liquid) BMs/day. No longer bloody. No change in occasional, nonproductive cough and exertional dyspnea. Specifically denies fever/chills, headache, dizziness, CP, palpitations, N/V, abd pain. [facility] Medical History Wears glasses Cancer Anemia Easy [...] liver of unknown origin Ulcerative colitis Ascites Atrial fibrillation HUANG (dyspnea on exertion) Nonrheumatic aortic (valve) stenosis Bicuspid aortic valve Acute kidney injury Chest pain, unspecified Asthma Churg-Geronimo syndrome Surgical History History of esophagogastroduodenoscopy (EGD) Hx of surgical procedure S/P proctocolectomy (~1993) Hx laparoscopic cholecystectomy History of right and left heart catheterization (LHC) (~07/12/01) History of aortic valve replacement with bioprosthetic valve Family History Other Heart disease Social History Smoking Status: Never smoker alcohol intake: current alcohol intake frequency: holidays/special occasions only details: occasional substance use type: does not use ROS ROS Narrative Negative except as documented in the interval HPI Intake Vital Signs 03/18/25 09:14 04/29/25 09:20 04/29/25 09:30 04/29/25 09:52 Height 6 ft 3 in 6 ft 3 in 6 ft 3 in Weight: 201 lb 7 oz BMI 25.2 BP 88/57 L 100/58 L Blood Pressure Location Lt brachial Lt brachial Position Sitting Respiration 16 Pulse 67 Pulse Source Monitor Temp 98.2 F Temperature Source Temporal Artery Pulse Oximetry (%) 98 Oxygen Delivery Method room air Intake Is patient in pain?: No Allergies acetaminophen Allergy (Mild, Verified 04/29/25 09:29) Itching Penicillins (PCN) Allergy (Verified 04/29/25 09:29) PT UNSURE OF REACTION Medications ?Medication ?Instructions ?Recorded ?Confirmed ?Type guaifenesin 1,200 mg tablet, 1,200 mg PO DAILY 5 04/29/25 History extended release 12 hr (Mucinex) pantoprazole 40 mg tablet,delayed 40 mg PO DAILY #30 t abs 11/26/24 04/29/25 Rx release cholestyramine-aspartame 4 gram 4 g PO TID #239.4 gram s 12/05/24 04/29/25 Rx oral powder (Cholestyramine Light) metoprolol succinate 25 mg 25 mg PO QDAY #90 tabs 12/0204/29/25 Rx tablet,extended release 24 hr (Toprol XL) loperamide 2 mg capsule (Imodium 2 mg PO QDAY 02/09/25 04/29/25 History A-D) lidocaine-prilocaine 2.5 %-2.5 % 1 applic topical ONCE PRN port 03/18/25 04/29/25 Rx topical cream access 30 days #30 grams ondansetron 8 mg disintegrating 8 mg PO Q8H PRN nausea and 03/18/25 04/29/25 Rx tablet vomiting #30 tabs prochlorperazine maleate 10 mg 10 mg PO Q6H PRN nausea and 03/18/25 04/29/25 Rx tablet vomiting #30 tabs Have you fallen in the past year?: No Central Venous Access Central Venous Access: Yes Port/PICC: Port Laboratory Tests 04/29/25 08:40 WBC 9.3 Hgb 10.7 L Hct 34.8 L Plt Count 189 Absolute Neuts (auto) 7.2 Sodium 137 Potassium 4.2 Chloride 109 H Carbon Dioxide 18.4 L BUN 20 H Creatinine 0.78 Glucose 101 H Calcium 8.6 Phosphorus 2.8 Magnesium 1.7 Total Bilirubin 1.18 AST 69 H ALT 58 H Alkaline Phosphatase 593 H Albumin 3.4 L Exam Physical Exam Narrative ECOG 2 Const no apparent distress General Appearance: ill appearing Positive for chronically, frail and appears older than stated age HEENT Face and Sinus: normal facial exam Eyes General Eye: normal appearance of both eyes Neck no lymphadenopathy and no JVD Resp clear to auscultation bilaterally Cardio Rhythm: abnormal rhythm GI soft to palpation and non-tender Inspection: visible herniation and other Other Details: Abdominal and inguinal hernias Palpation: hepatomegaly Back/Spine no thoracic nor lumbar tenderness Extremity General Extremity: edema bilateral lower extremity Details: mild; Negative for clubbing or cyanosis Skin no wounds Neuro oriented x3, CN's II-XII intact bilaterally and moves all extremities Speech: speech normal Gait (Neuro): normal gait Psych cooperative Coding Level of Care Code Off vis,est,level 4 Exam Problem Focused Diagnoses Metastasis to liver of unknown origin C78.7; C80.1 Malignant ascites R18.0 Ascites type: malignant Mediastinal lymphadenopathy R59.0 Retroperitoneal lymphadenopathy R59.0 Mesenteric lymphadenopathy R59.0 Pelvic lymphadenopathy R59.0 Other ulcerative colitis with rectal bleeding K51.811 Ulcerative colitis location: other ulcerative colitis Digestive disease complication type: with rectal bleeding Iron deficiency anemia due to chronic blood loss D50.0 Assessment and Plan Assessment and Plan (1) Metastasis to liver of unknown origin: Status: Chronic Comment: Most likely colorectal primary. (2) Ascites: Status: Chronic Qualifiers: Ascites type: malignant Qualified Code(s): R18.0 - Malignant ascites (3) Mediastinal lymphadenopathy: Status: Chronic (4) Retroperitoneal lymphadenopathy: Status: Chronic (5) Mesenteric lymphadenopathy: Status: Chronic (6) Pelvic lymphadenopathy: Status: Chronic (7) Ulcerative colitis: Status: Chronic Qualifiers: Ulcerative colitis location: other ulcerative colitis Digestive diseasecomplication type: with rectal bleeding Qualified Code(s): K51.811 - Other ulcerative colitis with rectal bleeding Comment: Hx ileal-anal anastomosis with J-pouch (8) Iron deficiency anemia due to chronic blood loss: Status: Chronic Plan 55-year-old male history notable for ulcerative colitis status post total proctocolectomy with J-pouch in 1993 at [facility] (extensive colitis and low-grade dysplasia). Patient was hospitalized in November 2024 with severe anemia due to acute and chronic GI bleeding. Imaging shows a hepatic mass on biopsy and adenocarcinoma with intestinal differentiation most likely metastaticadenocarcinoma of unknown primary most likely primary colorectal. Next generation sequence colorectal panel was negative including K-garcia NRAS and IDH 1/IDH 2 mutation negative[address] MSI intact. CT scan of November 2024 suggested necrotic J-pouch anastomosis but direct visualization by endoscopy and biopsies did not confirm that. PET/CT December 2024 shows avid uptake in the left hepatic lobe. In addition patient has mediastinal lymphadenopathy, diffuse retroperitoneal, periportal, mesenteric and bilateral pelvic lymphadenopathyand ascites although the uptake in these was less intense and by PET could not be distinguished whether malignant or representing granulomatous disease. January 2025 underwent EGD and pouch colonoscopies at [facility] and no primary was identified. A number of tumor markers were drawn during hospital stay but none are diagnostic of any specific primary and cannot be interpreted. Notably CEA was not elevated. Case was discussed in multidisciplinary tumor conference at [facility] prompting additional pathology and additional liver biopsy. 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 Started [id number] March 18, 2026, no G3-4 toxicities Chronic comorbid conditions: Atrial fibrillation, not anticoagulated due to GI bleeding November 2024 and no identified reversible source, nonrheumatic valvular heart disease, cardiomyopathy with chronic congestive heart failure, history of Churg-Geronimo syndrome, history of ulcerative colitis as above, patient lives alone with no social support apart from what his [id number] canprovide (ex- disabled in a long term facility). Plan: 1. Continue systemic chemotherapy with palliative intent modified FOLFOX 6. Proceed with cycle 4 today. 2. Neuropathy- involving fingertips. Grade 1. Continue to monitor. Clinical Quality Measures Falls Risk Screening/Assistive Devices Have you fallen in the past year?: No 04/29/25 0953 h FEATHER SHAPER FEATHER SHAPER-C> Date _ Geeta Rodgers FEATHER SHAPER FEATHER SHAPER-C Cosigner Signature: Date (if applicable) CC: ~ [facility]07-23-2025 Progress note Author Geeta Rodgers [facility] Note Date/Time April 29, 2025 9:53 am [facility] [place] [address] OFFICE VISIT Date of Service: 04/29/25 0919 MR#: [id number] Acct: [id number] Name: DENY BRONSON Rep #: [id number] : 1970 From: Geeta Frank ch, NP FEATHER SHAPER-C Age/Sex: 55/M Location: [facility] Status: Signed HPI Subjective Date of Service 04/29/25 Chief Complaint Metastatic cancer to liver History of Present Illness 55-year-old male past medical history notable for ulcerative colitis status posttotal proctocolectomy in 1993 with a J-pouch at [facility] and pathology reported extensive chronic and active colitis and low-grade epithelial dysplasia.. He was hospitalized in November 2024 after he reported bleeding and black melanotic stools was found with a hemoglobin of 5.7 g per DL. November 22, 2024 CTA: IMPRESSION: 1. No acute pulmonary embolism within the proximal pulmonary arteries. 2. Severe cardiomegaly. Dilation of the main pulmonary trunk, which can be seenwith pulmonary artery hypertension. 3. Dilation of the [...] granulomatosis with polyangiitis. Correlation with prior imaging recommendedas neoplasm can not be excluded. November 24, [...] biopsy: Fragments of duodenal mucosa with mild Ernst?s gland hyperplasia. B. Colon anastomosis, biopsy: Fragments of colonic mucosa with extensive ulceration, acute and chronic inflammation, granulation tissue reaction and reactive epithelial changes November 25, 2024 Liver mass, CT guided core biopsy: Well differentiated glands with intestinal differentiation, consistent with well-differentiated adenocarcinoma. Liver tissue is not present. The specimen is sent to [facility] for expert opinion, reviewed by Dr. Harding and theabove diagnosis is rendered. The complete report is [...] and pouchoscopy with biopsies: No primary identified. February 26, 2025 CT-guided liver biopsy #2 further testing at [facility] Main campus: MICROSCOPIC DIAGNOSIS A. Liver, ?neoplasm?, CT-guided core biopsy: - Well-differentiated adenocarcinoma ? see note and Comment. o Note: This histology is similar to the previous biopsy ([id number]) with the addition of foci suggestive of desmoplasia and invasion noted, supporting a neoplastic process. IHC (performed at [facility] and [facility]) show the tumor cells to be positive for CDX2, Villin, CK20, CK19, and SATB2 (patchy); and negative for CK7. o These findings are most consistent with a gastrointestinal primary. Although cholangiocarcinoma cannot be entirely ruled out, the findings strongly raise the possibility of a metastasis from a colorectal primary. Treatment summary and response: Modified FOLFOX 6 March 18, 2025 Interval History The patient is presenting to clinic today for an evaluation anticipating he willbegin cycle 4 FOLFOX. Appetite improving, PO fluid intake likely adequate. Fatigue improved. Notes numbness/tingling intermittently in fingertips. Not interfering with ADLs. Chronic diarrhea continues, modestly improved estimates 5-10 small loose (no liquid) BMs/day. No longer bloody. No change in occasional, nonproductive cough and exertional dyspnea. Specifically denies fever/chills, headache, dizziness, CP, palpitations, N/V, abd pain. PFSH Medical History Wears glasses Cancer Anemia Easy [...] liver of unknown origin Ulcerative colitis Ascites Atrial fibrillation HUANG (dyspnea on exertion) Nonrheumatic aortic (valve) stenosis Bicuspid aortic valve Acute kidney injury Chest pain, unspecified Asthma Churg-Geronimo syndrome Surgical History History of esophagogastroduodenoscopy (EGD) Hx of surgical procedure S/P proctocolectomy (~1993) Hx laparoscopic cholecystectomy History of right and left heart catheterization (LHC) (~07/12/01) History of aortic valve replacement with bioprosthetic valve Family History Other Heart disease Social History Smoking Status: Never smoker alcohol intake: current alcohol intake frequency: holidays/special occasions only details: occasional substance use type: does not use ROS ROS Narrative Negative except as documented in the interval HPI Intake Vital Signs 03/18/25 09:14 04/29/25 09:20 04/29/25 09:30 04/29/25 09:52 Height 6 ft 3 in 6 ft 3 in 6 ft 3 in Weight: 201 lb 7 oz BMI 25.2 BP 88/57 L 100/58 L Blood Pressure Location Lt brachial Lt brachial Position Sitting Respiration 16 Pulse 67 Pulse Source Monitor Temp 98.2 F Temperature Source Temporal Artery Pulse Oximetry (%) 98 Oxygen Delivery Method room air Intake Is patient in pain?: No Allergies acetaminophen Allergy (Mild, Verified 04/29/25 09:29) Itching Penicillins (PCN) Allergy (Verified 04/29/25 09:29) PT UNSURE OF REACTION Medications ?Medication ?Instructions ?Recorded ?Confirmed ?Type guaifenesin 1,200 mg tablet, 1,200 mg PO DAILY 5 04/29/25 History extended release 12 hr (Mucinex) pantoprazole 40 mg tablet,delayed 40 mg PO DAILY #30 t abs 11/26/24 04/29/25 Rx release cholestyramine-aspartame 4 gram 4 g PO TID #239.4 gram s 12/05/24 04/29/25 Rx oral powder (Cholestyramine Light) metoprolol succinate 25 mg 25 mg PO QDAY #90 tabs 12/0204/29/25 Rx tablet,extended release 24 hr (Toprol XL) loperamide 2 mg capsule (Imodium 2 mg PO QDAY 02/09/25 04/29/25 History A-D) lidocaine-prilocaine 2.5 %-2.5 % 1 applic topical ONCE PRN port 03/18/25 04/29/25 Rx topical cream access 30 days #30 grams ondansetron 8 mg disintegrating 8 mg PO Q8H PRN nausea and 03/18/25 04/29/25 Rx tablet vomiting #30 tabs prochlorperazine maleate 10 mg 10 mg PO Q6H PRN nausea and 03/18/25 04/29/25 Rx tablet vomiting #30 tabs Have you fallen in the past year?: No Central Venous Access Central Venous Access: Yes Port/PICC: Port Laboratory Tests 04/29/25 08:40 WBC 9.3 Hgb 10.7 L Hct 34.8 L Plt Count 189 Absolute Neuts (auto) 7.2 Sodium 137 Potassium 4.2 Chloride 109 H Carbon Dioxide 18.4 L BUN 20 H Creatinine 0.78 Glucose 101 H Calcium 8.6 Phosphorus 2.8 Magnesium 1.7 Total Bilirubin 1.18 AST 69 H ALT 58 H Alkaline Phosphatase 593 H Albumin 3.4 L Exam Physical Exam Narrative ECOG 2 Const no apparent distress General Appearance: ill appearing Positive for chronically, frail and appears older than stated age HEENT Face and Sinus: normal facial exam Eyes General Eye: normal appearance of both eyes Neck no lymphadenopathy and no JVD Resp clear to auscultation bilaterally Cardio Rhythm: abnormal rhythm GI soft to palpation and non-tender Inspection: visible herniation and other Other Details: Abdominal and inguinal hernias Palpation: hepatomegaly Back/Spine no thoracic nor lumbar tenderness Extremity General Extremity: edema bilateral lower extremity Details: mild; Negative for clubbing or cyanosis Skin no wounds Neuro oriented x3, CN's II-XII intact bilaterally and moves all extremities Speech: speech normal Gait (Neuro): normal gait Psych cooperative Coding Level of Care Code Off vis,est,level 4 Exam Problem Focused Diagnoses Metastasis to liver of unknown origin C78.7; C80.1 Malignant ascites R18.0 Ascites type: malignant Mediastinal lymphadenopathy R59.0 Retroperitoneal lymphadenopathy R59.0 Mesenteric lymphadenopathy R59.0 Pelvic lymphadenopathy R59.0 Other ulcerative colitis with rectal bleeding K51.811 Ulcerative colitis location: other ulcerative colitis Digestive disease complication type: with rectal bleeding Iron deficiency anemia due to chronic blood loss D50.0 Assessment and Plan Assessment and Plan (1) Metastasis to liver of unknown origin: Status: Chronic Comment: Most likely colorectal primary. (2) Ascites: Status: Chronic Qualifiers: Ascites type: malignant Qualified Code(s): R18.0 - Malignant ascites (3) Mediastinal lymphadenopathy: Status: Chronic (4) Retroperitoneal lymphadenopathy: Status: Chronic (5) Mesenteric lymphadenopathy: Status: Chronic (6) Pelvic lymphadenopathy: Status: Chronic (7) Ulcerative colitis: Status: Chronic Qualifiers: Ulcerative colitis location: other ulcerative colitis Digestive diseasecomplication type: with rectal bleeding Qualified Code(s): K51.811 - Other ulcerative colitis with rectal bleeding Comment: Hx ileal-anal anastomosis with J-pouch (8) Iron deficiency anemia due to chronic blood loss: Status: Chronic Plan 55-year-old male history notable for ulcerative colitis status post total proctocolectomy with J-pouch in 1993 at [facility] (extensive colitis and low-grade dysplasia). Patient was hospitalized in November 2024 with severe anemia due to acute and chronic GI bleeding. Imaging shows a hepatic mass on biopsy and adenocarcinoma with intestinal differentiation most likely metastaticadenocarcinoma of unknown primary most likely primary colorectal. Next generation sequence colorectal panel was negative including K-garcia NRAS and IDH 1/IDH [address] mutation negative[address] scan of November 2024 suggested necrotic J-pouch anastomosis but direct visualization by endoscopy and biopsies did not confirm that. PET/CT December 2024 shows avid uptake in the left hepatic lobe. In addition patient has mediastinal lymphadenopathy, diffuse retroperitoneal, periportal, mesenteric and bilateral pelvic lymphadenopathy and ascites although the uptake in these was less intense and by PET could not be distinguished whether malignant or representing granulomatous disease. January 2025 underwent EGD and pouch colonoscopies at [facility] and no primary was identified. A number of tumor markers were drawn during hospital stay but none are diagnostic of any specific primary and cannot be interpreted. Notably CEA was not elevated. Case was discussed in multidisciplinary tumor conference at [facility] prompting additional pathology and additional liver biopsy. 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 Started [id number] March 18, 2026, no G3-4 toxicities Chronic comorbid conditions: Atrial fibrillation, not anticoagulated due to GI bleeding November 2024 and no identified reversible source, nonrheumatic valvular heart disease, cardiomyopathy with chronic congestive heart failure, history of Churg-Geronimo syndrome, history of ulcerative colitis as above, patient lives alone with no social support apart from what his [id number] canprovide (ex- disabled in a long term facility). Plan: 1. Continue systemic chemotherapy with palliative intent modified FOLFOX 6. Proceed with cycle 4 today. 2. Neuropathy- involving fingertips. Grade 1. Continue to monitor. Clinical Quality Measures Falls Risk Screening/Assistive Devices Have you fallen in the past year?: No 04/29/25 0953 <Electronically signed by Geeta GLASS> Date _ Geeta GLASS Cosigner Signature: Date (if applicable) CC: ~ [facility] [employer] Work Phone: [phone]) 643-440307-15-[address] [facility] [place] [address] OFFICE VISIT Date of Service: 04/21/25 0843 MR#: [id number] Acct: [id number] Name: DENY BRONSON Rep #: [id number] : 1970 From: Geeta GLASS Age/Sex: 55/M Location: [facility] Status: Signed HPI Subjective Date of Service 04/21/25 Chief Complaint Metastatic cancer to liver History of Present Illness 55-year-old male past medical history notable for ulcerative colitis status posttotal proctocolectomy in 1993 with a J-pouch at [facility] and pathology reported extensive chronic and active colitis and low-grade epithelial dysplasia.. He was hospitalized in November 2024 after hereported bleeding and black melanotic stools was found with a hemoglobin of 5.7 g per DL. November 22, 2024 CTA: IMPRESSION: 1. No acute pulmonary embolism within the proximal pulmonary arteries. 2. Severe cardiomegaly. Dilation of the main pulmonary trunk, which can be seenwith pulmonary artery hypertension. 3. Dilation of the [...] granulomatosis with polyangiitis. Correlation with prior imaging recommendedas neoplasm can not be excluded. November 24, [...] biopsy: Fragments of duodenal mucosa with mild Ernst?s gland hyperplasia. B. Colon anastomosis, biopsy: Fragments of colonic mucosa with extensive ulceration, acute and chronic inflammation, granulation tissue reaction and reactive epithelial changes November 25, 2024 Liver mass, CT guided core biopsy: Well differentiated glands with intestinal differentiation, consistent with well-differentiated adenocarcinoma. Liver tissue is not present. The specimen is sent to [facility] for expert opinion, reviewed by Dr. Harding and theabove diagnosis is rendered. The complete report is [...] and pouchoscopy with biopsies: No primary identified. February 26, 2025 CT-guided liver biopsy #2 further testing at [facility] Main campus: MICROSCOPIC DIAGNOSIS A. Liver, ?neoplasm?, CT-guided core biopsy: - Well-differentiated adenocarcinoma ? see note and Comment. o Note: This histology is similar to the previous biopsy ([id number]) with the addition of foci suggestive of desmoplasia and invasion noted, supporting a neoplastic process. IHC (performed at [facility] and [facility]) show the tumor cells to be positive for CDX2, Villin, CK20, CK19, and SATB2 (patchy); and negative for CK7. o These findings are most consistent with a gastrointestinal primary. Although cholangiocarcinoma cannot be entirely ruled out, the findings strongly raise the possibility of a metastasis from a colorectal primary. Treatment summary and response: Modified FOLFOX 6 March 18, 2025 Interval History The patient is presenting to clinic today for planned toxicity assessment anticipating that he willalso receive an iron infusion. Began cycle 3 FOLFOX on 04/15/2025. Appetite improving, PO fluid intake likely adequate. Fatigue improved. No change in chronic diarrhea, estimates 10-15 small loose (no liquid) BMs/day. No longer bloody. No change in occasional, nonproductive cough and exertional dyspnea. BLE improved. Sleeping well at night. Specifically denies fever/chills, headache, dizziness, CP, palpitations, N/V, abd pain, numbness/tingling. [facility] Medical History (Updated 04/15/25 @ 10:[address] Trish Ortiz MD) Wears glasses Cancer Anemia Easy bruising Excessive [...] liver of unknown origin Ulcerative colitis Ascites Atrial fibrillation HUANG (dyspnea on exertion) Nonrheumatic aortic (valve) stenosis Bicuspid aortic valve Acute kidney injury Chest pain, unspecified Asthma Churg-Geronimo syndrome Surgical History History of esophagogastroduodenoscopy (EGD) Hx of surgical procedure S/P proctocolectomy (~1993) Hx laparoscopic cholecystectomy History of right and left heart catheterization (LHC) (~07/12/01) History of aortic valve replacement with bioprosthetic valve Family History Other Heart disease Social History Smoking Status: Never smoker alcohol intake: current alcohol intake frequency: holidays/special occasions only details: occasional substance use type: does not use ROS ROS Narrative Negative except as documented in the interval HPI Intake Vital Signs 04/15/25 09:41 04/21/25 08:44 04/21/25 08:47 Height 6 ft 3 in 6 ft 3 in 6 ft 3 in Weight: 205 lb 1 oz BMI 25.6 BP 88/57 L Blood Pressure Location Lt brachial Position Sitting Respiration 18 Pulse 82 Pulse Source Monitor Temp 98.8 F Temperature Source Temporal Artery Pulse Oximetry (%) 96 Oxygen Delivery Method room air Intake Is patient in pain?: No Allergies acetaminophen Allergy (Mild, Verified 04/21/25 08:46) Itching Penicillins (PCN) Allergy (Verified 04/21/25 08:46) PT UNSURE OF REACTION Medications ?Medication ?Instructions ?Recorded ?Confirmed ?Type guaifenesin 1,200 mg tablet, 1,200 mg PO DAILY 5 04/21/25 History extended release 12 hr (Mucinex) pantoprazole 40 mg tablet,delayed 40 mg PO DAILY #30 t abs 11/26/24 04/21/25 Rx release cholestyramine-aspartame 4 gram 4 g PO TID #239.4 gram s 12/05/24 04/21/25 Rx oral powder (Cholestyramine Light) metoprolol succinate 25 mg 25 mg PO QDAY #90 tabs 12/0204/21/25 Rx tablet,extended release 24 hr (Toprol XL) loperamide 2 mg capsule (Imodium 2 mg PO QDAY 02/09/25 04/21/25 History A-D) lidocaine-prilocaine 2.5 %-2.5 % 1 applic topical ONCE PRN port 03/18/25 04/21/25 Rx topical cream access 30 days #30 grams ondansetron 8 mg disintegrating 8 mg PO Q8H PRN nausea and 03/18/25 04/21/25 Rx tablet vomiting #30 tabs prochlorperazine maleate 10 mg 10 mg PO Q6H PRN nausea and 03/18/25 04/21/25 Rx tablet vomiting #30 tabs Have you fallen in the past year?: No Central Venous Access Central Venous Access: Yes Port/PICC: Port Laboratory Tests 04/21/25 07:52 WBC 5.5 Hgb 10.3 L Hct 33.4 L Plt Count 248 Absolute Neuts (auto) 4.0 Laboratory Tests 04/21/25 07:52 Sodium 135 Potassium 3.8 Chloride 104 Carbon Dioxide 23.1 BUN 17 Creatinine 0.68 L Calcium 8.4 Phosphorus 2.5 L Magnesium 1.6 Exam Physical Exam Narrative ECOG 2 Const no apparent distress General Appearance: ill appearing Positive for chronically, frail and appears older than stated age HEENT Face and Sinus: normal facial exam Eyes General Eye: normal appearance of both eyes Neck no lymphadenopathy and no JVD Resp clear to auscultation bilaterally Cardio Rhythm: abnormal rhythm GI soft to palpation and non-tender Inspection: visible herniation and other Other Details: Abdominal and inguinal hernias Palpation: hepatomegaly Back/Spine no thoracic nor lumbar tenderness Extremity General Extremity: edema bilateral lower extremity Details: mild; Negative for clubbing or cyanosis Skin no wounds Neuro oriented x3, CN's II-XII intact bilaterally and moves all extremities Speech: speech normal Gait (Neuro): normal gait Psych cooperative Coding Level of Care Code Off vis,est,level 4 Exam Problem Focused Diagnoses Metastasis to liver of unknown origin C78.7; C80.1 Malignant ascites R18.0 Ascites type: malignant Mediastinal lymphadenopathy R59.0 Retroperitoneal lymphadenopathy R59.0 Mesenteric lymphadenopathy R59.0 Pelvic lymphadenopathy R59.0 Other ulcerative colitis with rectal bleeding K51.811 Digestive disease complication type: with rectal bleeding Ulcerative colitis location: other ulcerative colitis Iron deficiency anemia due to chronic blood loss D50.0 Assessment and Plan Assessment and Plan (1) Metastasis to liver of unknown origin: Status: Chronic Comment: Most likely colorectal primary. (2) Ascites: Status: Chronic Qualifiers: Ascites type: malignant Qualified Code(s): R18.0 - Malignant ascites (3) Mediastinal lymphadenopathy: Status: Chronic (4) Retroperitoneal lymphadenopathy: Status: Chronic (5) Mesenteric lymphadenopathy: Status: Chronic (6) Pelvic lymphadenopathy: Status: Chronic (7) Ulcerative colitis: Status: Chronic Qualifiers: Digestive disease complication type: with rectal bleeding Ulcerative colitis location: other ulcerative colitis Qualified Code(s): K51.811 - Other ulcerative colitis with rectal bleeding Comment: Hx ileal-anal anastomosis with J-pouch (8) Iron deficiency anemia due to chronic blood loss: Status: Chronic Plan 55-year-old male history notable for ulcerative colitis status post total proctocolectomy with J-pouch in 1993 at [facility] (extensive colitis and low-grade dysplasia). Patient was hospitalized in November 2024 with severe anemia due to acute and chronic GI bleeding. Imaging shows a hepatic mass on biopsy and adenocarcinoma with intestinal differentiation most likely metastaticadenocarcinoma of unknown primary most likely primary colorectal. Next generation sequence colorectal panel was negative including K-garcia NRAS and IDH 1/IDH 2 mutation negative[address] MSI intact. CT scan of November 2024 suggested necrotic J-pouch anastomosis but direct visualization by endoscopy and biopsies did not confirm that. PET/CT December 2024 shows avid uptake in the left hepatic lobe. In addition patient has mediastinal lymphadenopathy, diffuse retroperitoneal, periportal, mesenteric and bilateral pelvic lymphadenopathyand ascites although the uptake in these was less intense and by PET could not be distinguished whether malignant or representing granulomatous disease. January 2025 underwent EGD and pouch colonoscopies at [facility] and no primary was identified. A number of tumor markers were drawn during hospital stay but none are diagnostic of any specific primary and cannot be interpreted. Notably CEA was not elevated. Case was discussed in multidisciplinary tumor conference at [facility] prompting additional pathology and additional liver biopsy. 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 Started mFOLFOX6 March 18, 2026, no G3-4 toxicities Chronic comorbid conditions: Atrial fibrillation, not anticoagulated due to GI bleeding November 2024 and no identified reversible source, nonrheumatic valvular heart disease, cardiomyopathy with chronic congestive heart failure, history of Churg-Geronimo syndrome, history of ulcerative colitis as above, patient lives alone with no social support apart from what his [id number] canprovide (ex- disabled in a long term facility). Plan: 1. Continue systemic chemotherapy with palliative intent modified FOLFOX 6. Cycle 4 due to be given 04/29/2025. 2. IV iron for recurrent iron deficiency anemia. Patient to proceed with #4/4 Venofer 300 mg weeklytoday. Clinical Quality Measures Falls Risk Screening/Assistive Devices Have you fallen in the past year?: No 04/21/25 0912 h FEATHER SHAPER FEATHER SHAPER-C> Date _ Geeta Rodgers NP FEATHER SHAPER-C Cosigner Signature: Date (if applicable) CC: ~ [facility]07-15-2025 Progress note Author Geeta Rodgers [facility] Note Date/Time April 21, 2025 9:12 am [facility] [address] [address] OFFICE VISIT Date of Service: 04/21/25 0843 MR#: [id number] Acct: [id number] Name: DENY BRONSON Rep #: [id number] : 1970 From: Geeta Frank ch, NP, NP-C Age/Sex: 55/M Location: [facility] Status: Signed HPI Subjective Date of Service 04/21/25 Chief Complaint Metastatic cancer to liver History of Present Illness 55-year-old male past medical history notable for ulcerative colitis status posttotal proctocolectomy in 1993 with a J-pouch at [facility] and pathology reported extensive chronic and active colitis and low-grade epithelial dysplasia.. He was hospitalized in November 2024 after he reported bleeding and black melanotic stools was found with a hemoglobin of 5.7 g per DL. November 22, 2024 CTA: IMPRESSION: 1. No acute pulmonary embolism within the proximal pulmonary arteries. 2. Severe cardiomegaly. Dilation of the main pulmonary trunk, which can be seenwith pulmonary artery hypertension. 3. Dilation of the [...] granulomatosis with polyangiitis. Correlation with prior imaging recommendedas neoplasm can not be excluded. November 24, [...] biopsy: Fragments of duodenal mucosa with mild Ernst?s gland hyperplasia. B. Colon anastomosis, biopsy: Fragments of colonic mucosa with extensive ulceration, acute and chronic inflammation, granulation tissue reaction and reactive epithelial changes November 25, 2024 Liver mass, CT guided core biopsy: Well differentiated glands with intestinal differentiation, consistent with well-differentiated adenocarcinoma. Liver tissue is not present. The specimen is sent to [facility] for expert opinion, reviewed by Dr. Harding and theabove diagnosis is rendered. The complete report is [...] and pouchoscopy with biopsies: No primary identified. February 26, 2025 CT-guided liver biopsy #2 further testing at [facility] Main campus: MICROSCOPIC DIAGNOSIS A. Liver, ?neoplasm?, CT-guided core biopsy: - Well-differentiated adenocarcinoma ? see note and Comment. o Note: This histology is similar to the previous biopsy ([id number]) with the addition of foci suggestive of desmoplasia and invasion noted, supporting a neoplastic process. IHC (performed at [facility] and [facility]) show the tumor cells to be positive for CDX2, Villin, CK20, CK19, and SATB2 (patchy); and negative for CK7. o These findings are most consistent with a gastrointestinal primary. Although cholangiocarcinoma cannot be entirely ruled out, the findings strongly raise the possibility of a metastasis from a colorectal primary. Treatment summary and response: Modified FOLFOX 6 March 18, 2025 Interval History The patient is presenting to clinic today for planned toxicity assessment anticipating that he will also receive an iron infusion. Began cycle 3 FOLFOX on 04/15/2025. Appetite improving, PO fluid intake likely adequate. Fatigue improved. No change in chronic diarrhea, estimates 10-15 small loose (no liquid) BMs/day. No longer bloody. No change in occasional, nonproductive cough and exertional dyspnea. BLE improved. Sleeping well at night. Specifically denies fever/chills, headache, dizziness, CP, palpitations, N/V, abd pain, numbness/tingling. [facility] Medical History (Updated 04/15/25 @ 10:[address] Trish Ortiz MD) Wears glasses Cancer Anemia Easy bruising Excessive [...] liver of unknown origin Ulcerative colitis Ascites Atrial fibrillation HUANG (dyspnea on exertion) Nonrheumatic aortic (valve) stenosis Bicuspid aortic valve Acute kidney injury Chest pain, unspecified Asthma Churg-Geronimo syndrome Surgical History History of esophagogastroduodenoscopy (EGD) Hx of surgical procedure S/P proctocolectomy (~1993) Hx laparoscopic cholecystectomy History of right and left heart catheterization (LHC) (~07/12/01) History of aortic valve replacement with bioprosthetic valve Family History Other Heart disease Social History Smoking Status: Never smoker alcohol intake: current alcohol intake frequency: holidays/special occasions only details: occasional substance use type: does not use ROS ROS Narrative Negative except as documented in the interval HPI Intake Vital Signs 04/15/25 09:41 04/21/25 08:44 04/21/25 08:47 Height 6 ft 3 in 6 ft 3 in 6 ft 3 in Weight: 205 lb 1 oz BMI 25.6 BP 88/57 L Blood Pressure Location Lt brachial Position Sitting Respiration 18 Pulse 82 Pulse Source Monitor Temp 98.8 F Temperature Source Temporal Artery Pulse Oximetry (%) 96 Oxygen Delivery Method room air Intake Is patient in pain?: No Allergies acetaminophen Allergy (Mild, Verified 04/21/25 08:46) Itching Penicillins (PCN) Allergy (Verified 04/21/25 08:46) PT UNSURE OF REACTION Medications ?Medication ?Instructions ?Recorded ?Confirmed ?Type guaifenesin 1,200 mg tablet, 1,200 mg PO DAILY 5 04/21/25 History extended release 12 hr (Mucinex) pantoprazole 40 mg tablet,delayed 40 mg PO DAILY #30 t abs 11/26/24 04/21/25 Rx release cholestyramine-aspartame 4 gram 4 g PO TID #239.4 gram s 12/05/24 04/21/25 Rx oral powder (Cholestyramine Light) metoprolol succinate 25 mg 25 mg PO QDAY #90 tabs 12/0204/21/25 Rx tablet,extended release 24 hr (Toprol XL) loperamide 2 mg capsule (Imodium 2 mg PO QDAY 02/09/25 04/21/25 History A-D) lidocaine-prilocaine 2.5 %-2.5 % 1 applic topical ONCE PRN port 03/18/25 04/21/25 Rx topical cream access 30 days #30 grams ondansetron 8 mg disintegrating 8 mg PO Q8H PRN nausea and 03/18/25 04/21/25 Rx tablet vomiting #30 tabs prochlorperazine maleate 10 mg 10 mg PO Q6H PRN nausea and 03/18/25 04/21/25 Rx tablet vomiting #30 tabs Have you fallen in the past year?: No Central Venous Access Central Venous Access: Yes Port/PICC: Port Laboratory Tests 04/21/25 07:52 WBC 5.5 Hgb 10.3 L Hct 33.4 L Plt Count 248 Absolute Neuts (auto) 4.0 Laboratory Tests 04/21/25 07:52 Sodium 135 Potassium 3.8 Chloride 104 Carbon Dioxide 23.1 BUN 17 Creatinine 0.68 L Calcium 8.4 Phosphorus 2.5 L Magnesium 1.6 Exam Physical Exam Narrative ECOG 2 Const no apparent distress General Appearance: ill appearing Positive for chronically, frail and appears older than stated age HEENT Face and Sinus: normal facial exam Eyes General Eye: normal appearance of both eyes Neck no lymphadenopathy and no JVD Resp clear to auscultation bilaterally Cardio Rhythm: abnormal rhythm GI soft to palpation and non-tender Inspection: visible herniation and other Other Details: Abdominal and inguinal hernias Palpation: hepatomegaly Back/Spine no thoracic nor lumbar tenderness Extremity General Extremity: edema bilateral lower extremity Details: mild; Negative for clubbing or cyanosis Skin no wounds Neuro oriented x3, CN's II-XII intact bilaterally and moves all extremities Speech: speech normal Gait (Neuro): normal gait Psych cooperative Coding Level of Care Code Off vis,est,level 4 Exam Problem Focused Diagnoses Metastasis to liver of unknown origin C78.7; C80.1 Malignant ascites R18.0 Ascites type: malignant Mediastinal lymphadenopathy R59.0 Retroperitoneal lymphadenopathy R59.0 Mesenteric lymphadenopathy R59.0 Pelvic lymphadenopathy R59.0 Other ulcerative colitis with rectal bleeding K51.811 Digestive disease complication type: with rectal bleeding Ulcerative colitis location: other ulcerative colitis Iron deficiency anemia due to chronic blood loss D50.0 Assessment and Plan Assessment and Plan (1) Metastasis to liver of unknown origin: Status: Chronic Comment: Most likely colorectal primary. (2) Ascites: Status: Chronic Qualifiers: Ascites type: malignant Qualified Code(s): R18.0 - Malignant ascites (3) Mediastinal lymphadenopathy: Status: Chronic (4) Retroperitoneal lymphadenopathy: Status: Chronic (5) Mesenteric lymphadenopathy: Status: Chronic (6) Pelvic lymphadenopathy: Status: Chronic (7) Ulcerative colitis: Status: Chronic Qualifiers: Digestive disease complication type: with rectal bleeding Ulcerative colitis location: other ulcerative colitis Qualified Code(s): K51.811 - Other ulcerative colitis with rectal bleeding Comment: Hx ileal-anal anastomosis with J-pouch (8) Iron deficiency anemia due to chronic blood loss: Status: Chronic Plan 55-year-old male history notable for ulcerative colitis status post total proctocolectomy with J-pouch in 1993 at [facility] (extensive colitis and low-grade dysplasia). Patient was hospitalized in November 2024 with severe anemia due to acute and chronic GI bleeding. Imaging shows a hepatic mass on biopsy and adenocarcinoma with intestinal differentiation most likely metastaticadenocarcinoma of unknown primary most likely primary colorectal. Next generation sequence colorectal panel was negative including K-garcia NRAS and IDH 1/IDH 2 mutation negative[address] scan of November 2024 suggested necrotic J-pouch anastomosis but direct visualization by endoscopy and biopsies did not confirm that. PET/CT December 2024 shows avid uptake in the left hepatic lobe. In addition patient has mediastinal lymphadenopathy, diffuse retroperitoneal, periportal, mesenteric and bilateral pelvic lymphadenopathy and ascites although the uptake in these was less intense and by PET could not be distinguished whether malignant or representing granulomatous disease. January 2025 underwent EGD and pouch colonoscopies at [facility] and no primary was identified. A number of tumor markers were drawn during hospital stay but none are diagnostic of any specific primary and cannot be interpreted. Notably CEA was not elevated. Case was discussed in multidisciplinary tumor conference at [facility] prompting additional pathology and additional liver biopsy. 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 Started [id number] March 18, 2026, no G3-4 toxicities Chronic comorbid conditions: Atrial fibrillation, not anticoagulated due to GI bleeding November 2024 and no identified reversible source, nonrheumatic valvular heart disease, cardiomyopathy with chronic congestive heart failure, history of Churg-Geronimo syndrome, history of ulcerative colitis as above, patient lives alone with no social support apart from what his [id number] canprovide (ex- disabled in a long term facility). Plan: 1. Continue systemic chemotherapy with palliative intent modified FOLFOX 6. Cycle 4 due to be given 04/29/2025. 2. IV iron for recurrent iron deficiency anemia. Patient to proceed with #4/4 Venofer 300 mg weekly today. Clinical Quality Measures Falls Risk Screening/Assistive Devices Have you fallen in the past year?: No 04/21/25911 <Electronically signed by Geeta GLASS> Date _ Geeta GLASS Cosigner Signature: Date (if applicable) CC: ~ [facility] Work Phone: [phone] [facility] [address] [address] OFFICE VISIT Date of Service: 04/15/25924 MR#: [id number] Acct: [id number] Name: DENY BRONSON Rep #: [id number] : 1970 From: Trish reagan MD Age/Sex: 55/M Location: [facility] [place] Status: Signed HPI Subjective Date of Service 04/15/25 Chief Complaint Metastatic cancer to liver History of Present Illness 55-year-old male past medical history notable for ulcerative colitis status posttotal proctocolectomy in 1993 with a J-pouch at [facility] and pathology reported extensive chronic and active colitis and low-grade epithelial dysplasia.. He was hospitalized in November 2024 after hereported bleeding and black melanotic stools was found with a hemoglobin of 5.7 g per DL. November 22, 2024 CTA: IMPRESSION: 1. No acute pulmonary embolism within the proximal pulmonary arteries. 2. Severe cardiomegaly. Dilation of the main pulmonary trunk, which can be seenwith pulmonary artery hypertension. 3. Dilation of the [...] granulomatosis with polyangiitis. Correlation with prior imaging recommendedas neoplasm can not be excluded. November 24, [...] biopsy: Fragments of duodenal mucosa with mild Ernst?s gland hyperplasia. B. Colon anastomosis, biopsy: Fragments of colonic mucosa with extensive ulceration, acute and chronic inflammation, granulation tissue reaction and reactive epithelial changes November 25, 2024 Liver mass, CT guided core biopsy: Well differentiated glands with intestinal differentiation, consistent with well-differentiated adenocarcinoma. Liver tissue is not present. The specimen is sent to [facility] for expert opinion, reviewed by Dr. Harding and theabove diagnosis is rendered. The complete report is [...] and pouchoscopy with biopsies: No primary identified. February 26, 2025 CT-guided liver biopsy #2 further testing at [facility] Main campus: MICROSCOPIC DIAGNOSIS A. Liver, ?neoplasm?, CT-guided core biopsy: - Well-differentiated adenocarcinoma ? see note and Comment. o Note: This histology is similar to the previous biopsy ([id number]) with the addition of foci suggestive of desmoplasia and invasion noted, supporting a neoplastic process. IHC (performed at [facility] and [facility]) show the tumor cells to be positive for CDX2, Villin, CK20, CK19, and SATB2 (patchy); and negative for CK7. o These findings are most consistent with a gastrointestinal primary. Although cholangiocarcinoma cannot be entirely ruled out, the findings strongly raise the possibility of a metastasis from a colorectal primary. Treatment summary and response: Modified FOLFOX 6 March 18, 2025 [facility] Medical History (Updated 04/15/25 @ 10:[address] Trish Ortiz MD) Wears glasses Cancer Anemia Easy bruising Excessive [...] liver of unknown origin Ulcerative colitis Ascites Atrial fibrillation HUANG (dyspnea on exertion) Nonrheumatic aortic (valve) stenosis Bicuspid aortic valve Acute kidney injury Chest pain, unspecified Asthma Churg-Geronimo syndrome Surgical History History of esophagogastroduodenoscopy (EGD) Hx of surgical procedure S/P proctocolectomy (~1993) Hx laparoscopic cholecystectomy History of right and left heart catheterization (LHC) (~07/12/01) History of aortic valve replacement with bioprosthetic valve Family History Other Heart disease Social History Smoking Status: Never smoker alcohol intake: current alcohol intake frequency: holidays/special occasions only details: occasional substance use type: does not use ROS Constitutional Constitutional: Reports systems reviewed and no addt'l complaints, except as documented, fatigue and other; Denies anorexia, fever(s) or weight loss Eyes Eyes: Reports systems reviewed and no addt'l complaints, except as documented ENT HEENT: Reports systems reviewed and no addt'l complaints, except as documented; Denies mouth lesions Cardiovascular Cardiovascular: Reports systems reviewed and no addt'l complaints, except as documented and edema; Denies chest pain Respiratory/Chest Respiratory/Chest: Reports systems reviewed and no addt'l complaints, except as documented and dyspnea on exertion; Denies wheezing Gastrointestinal Gastrointestinal: Reports systems reviewed and no addt'l complaints, except as documented, as per HPI, diarrhea, hematochezia and other Details: Chronic diarrhea (years) manageable, imodium once/d A single episode of nausea appears to be related to food intolerance. Occasional small blood per stool ; Denies change in bowel habits or melena Genitourinary Genitourinary: Reports systems reviewed and no addt'l complaints, except as documented; Denies hematuria Musculoskeletal Musculoskeletal: Denies back pain Integumentary Integumentary: Reports systems reviewed and no addt'l complaints, except as documented; Denies new lesions Neurologic Neurologic: Reports systems reviewed and no addt'l complaints, except as documented; Denies focal weakness, frequent falls or paresthesias Psychiatric Psychiatric: Reports systems reviewed and no addt'l complaints, except as documented Endocrine Endocrinology: Reports systems reviewed and no addt'l complaints, except as documented Hematologic/Lymphatic Hematologic/Lymphatic: Reports anemia; Denies lymphadenopathy Allergic/Immunologic Allergic/Immunologic: Reports systems reviewed and no addt'l complaints, except as documented Intake Vital Signs 03/18/25 09:14 04/15/25 09:26 04/15/25 09:41 Height 6 ft 3 in 6 ft 3 in 6 ft 3 in Weight: 93.043 kg BMI 25.6 BP 102/65 Blood Pressure Location Lt brachial Position Sitting Respiration 16 Pulse 90 Pulse Source Monitor Temp 97.2 F L Temperature Source Temporal Artery Pulse Oximetry (%) 97 Oxygen Delivery Method room air Intake Is patient in pain?: No Allergies acetaminophen Allergy (Mild, Verified 04/15/25 09:40) Itching Penicillins (PCN) Allergy (Verified 04/15/25 09:40) PT UNSURE OF REACTION Medications ?Medication ?Instructions ?Recorded ?Confirmed ?Type guaifenesin 1,200 mg tablet, 1,200 mg PO DAILY 5 04/15/25 History extended release 12 hr (Mucinex) pantoprazole 40 mg tablet,delayed 40 mg PO DAILY #30 t abs 11/26/24 04/15/25 Rx release cholestyramine-aspartame 4 gram 4 g PO TID #239.4 gram s 12/05/24 04/15/25 Rx oral powder (Cholestyramine Light) metoprolol succinate 25 mg 25 mg PO QDAY #90 tabs 05/12/0204/15/25 Rx tablet,extended release 24 hr (Toprol XL) loperamide 2 mg capsule (Imodium 2 mg PO QDAY 02/09/25 04/15/25 History A-D) lidocaine-prilocaine 2.5 %-2.5 % 1 applic topical ONCE PRN port 03/18/25 04/15/25 Rx topical cream access 30 days #30 grams ondansetron 8 mg disintegrating 8 mg PO Q8H PRN nausea and 03/18/25 04/15/25 Rx tablet vomiting #30 tabs prochlorperazine maleate 10 mg 10 mg PO Q6H PRN nausea and 03/18/25 04/15/25 Rx tablet vomiting #30 tabs Have you fallen in the past year?: No Central Venous Access Central Venous Access: Yes Port/PICC: Port Exam Physical Exam Narrative ECOG 2 Const no apparent distress General Appearance: ill appearing Positive for chronically, frail and appears older than stated age HEENT Face and Sinus: normal facial exam Eyes General Eye: normal appearance of both eyes Neck no lymphadenopathy and no JVD Resp clear to auscultation bilaterally Cardio Rhythm: abnormal rhythm GI soft to palpation and non-tender Inspection: visible herniation and other Other Details: Abdominal and inguinal hernias Palpation: hepatomegaly Back/Spine no thoracic nor lumbar tenderness Extremity General Extremity: edema bilateral lower extremity Details: severe; Negative forclubbing or cyanosis Skin no wounds Neuro oriented x3, CN's II-XII intact bilaterally and moves all extremities Coordination / Balance: [id number]-jz-qndd test normal Speech: speech normal Gait (Neuro): normal gait Psych cooperative Psych Narrative: Very poor historian. Coding Level of Care Code Off vis,est,level 4 Exam Problem Focused Diagnoses Metastasis to liver of unknown origin C78.7; C80.1 Malignant ascites R18.0 Ascites type: malignant Mediastinal lymphadenopathy R59.0 Retroperitoneal lymphadenopathy R59.0 Mesenteric lymphadenopathy R59.0 Pelvic lymphadenopathy R59.0 Other ulcerative colitis with rectal bleeding K51.811 Ulcerative colitis location: other ulcerative colitis Digestive disease complication type: with rectal bleeding Iron deficiency anemia due to chronic blood loss D50.0 Assessment and Plan Assessment and Plan (1) Metastasis to liver of unknown origin: Status: Chronic Comment: Most likely colorectal primary. (2) Ascites: Status: Chronic Qualifiers: Ascites type: malignant Qualified Code(s): R18.0 - Malignant ascites (3) Mediastinal lymphadenopathy: Status: Chronic (4) Retroperitoneal lymphadenopathy: Status: Chronic (5) Mesenteric lymphadenopathy: Status: Chronic (6) Pelvic lymphadenopathy: Status: Chronic (7) Ulcerative colitis: Status: Chronic Qualifiers: Ulcerative colitis location: other ulcerative colitis Digestive diseasecomplication type: with rectal bleeding Qualified Code(s): K51.811 - Other ulcerative colitis with rectal bleeding Comment: Hx ileal-anal anastomosis with J-pouch (8) Iron deficiency anemia due to chronic blood loss: Status: Chronic Plan 55-year-old male history notable for ulcerative colitis status post total proctocolectomy with J-pouch in 1993 at [facility] (extensive colitis and low-grade dysplasia). Patient was hospitalized in November 2024 with severe anemia due to acute and chronic GI bleeding. Imaging shows a hepatic mass on biopsy and adenocarcinoma with intestinal differentiation most likely metastaticadenocarcinoma of unknown primary most likely primary colorectal. Next generation sequence colorectal panel was negative including K-garcia NRAS and IDH 1/IDH [address] mutation negative[address] MSI intact. CT scan of November 2024 suggested necrotic J-pouch anastomosis but direct visualization by endoscopy and biopsies did not confirm that. PET/CT December 2024 shows avid uptake in the left hepatic lobe. In addition patient has mediastinal lymphadenopathy, diffuse retroperitoneal, periportal, mesenteric and bilateral pelvic lymphadenopathyand ascites although the uptake in these was less intense and by PET could not be distinguished whether malignant or representing granulomatous disease. January 2025 underwent EGD and pouch colonoscopies at [facility] and no primary was identified. A number of tumor markers were drawn during hospital stay but none are diagnostic of any specific primary and cannot be interpreted. Notably CEA was not elevated. Case was discussed in multidisciplinary tumor conference at [facility] prompting additional pathology and additional liver biopsy. 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 Started mFOLFOX6 March 18, 2026, no G3-4 toxicities Chronic comorbid conditions: Atrial fibrillation, not anticoagulated due to GI bleeding November 2024 and no identified reversible source, nonrheumatic valvular heart disease, cardiomyopathy with chronic congestive heart failure, history of Churg-Geronimo syndrome, history of ulcerative colitis as above, patient lives alone with no social support apart from what his sqxfjb-va-tzn canprovide (ex- disabled in a long term facility). Plan: 1. Continue systemic chemotherapy with palliative intent modified FOLFOX 6 . 2. IV iron for recurrent iron deficiency anemia. 3. Referred to palliative. 4. CEA tumor marker was not elevated at diagnosis and therefore of no value in follow-up Impression and plan discussed with patient, . Trish Ortiz MD Railroad Supervisor Of [employer], [facility] Divisions of Medical Oncology & Hematology Department of Internal Medicine [facility] [place] [phone] This note was generated using a voice recognition system software. Although itwas reviewed by the author prior to finalization, it may still contain incorrectwords, spelling, and punctuation that were not noted when reviewing prior to saving. If a clinically significant typo or inaccurately typed phrase is noted, please notify the author. Clinical Quality Measures Falls Risk Screening/Assistive Devices Have you fallen in the past year?: No 04/15/25 1017 jameson HOOK> Date _ Trish Ortiz MD Cosigner Signature: Date (if applicable) CC: ~ [facility]06-03-2025 Discharge summary [facility] Medical Records Department [address] [place] [address] Emergency Department Summary 03/10/25 MR#: [id number] Acct: [id number] Name: DENY BRONSON Rep #:[id number] : 1970 55 From: Aryan Hyde PCP: JACK Mccall Status:REG ER Location: ED HPI History of Present Illness Chief Complaint: General Illness [facility] Medical History Wears glasses Cancer Anemia Easy [...] / Time acetaminophen Allergy Mild Itching Verified 03/10/25 01:33 Penicillins (PCN) Allergy PT UNSURE Verified 03/10/25 01:33 OF REACTION Family History Other Heart disease Surgical History History of esophagogastroduodenoscopy (EGD) Hx of surgical procedure S/P proctocolectomy (~1993) Hx laparoscopic cholecystectomy History of right and left heart catheterization (LHC) (~07/12/01) History of aortic valve replacement with bioprosthetic valve Social History Smoking Status: Never smoker alcohol intake: current alcohol intake frequency: holidays/special occasions only details: occasional substance use type: does not use EXAM Physical Exam Const Vital Signs: 03/10/25 01:33 03/10/25 01:33 03/10/25 03:33 Temperature 98.6 F Temperature Source Oral Pulse Rate 103 H 96 Respiratory Rate 21 H 20 H Respiratory Effort Normal Non-Labored Respiratory Pattern Normal Blood Pressure 135/72 H 107/57 L Blood Pressure Mean 93 73 Pulse Ox 100 100 Oxygen Delivery Method Room Air Room Air MDM MDM MDM Narrative Medical decision making narrative: HISTORY OF PRESENT ILLNESS: Chief complaint: Runny nose, epistaxis 55-year-old male presents with primary concern of epistaxis. Notes today he is felt diffuse muscle aches, felt fatigued. Notes he had a nosebleed prior to arrival. This concerned him as he was passing clots. He notes bleeding has since ceased. He denies sick contacts. Denies shortness of breath. Does note a dry cough. Denies fever. Denies falls or other trauma. Also notes lower back pain. Patientdenies any saddle anesthesia, urinary retention, bowel or bladder incontinence, lower extremity weakness, fever or IV drug use, no recent spinal manipulation or surgery, no recent urinary catheterization. REVIEW OF SYSTEMS: Pertinent positives: Runny nose, epistaxis, back pain Pertinent negatives: Syncope, focal weakness PHYSICAL EXAM: Nursing triage notes reviewed, Vital signs reviewed Constitutional: please see mdm HENT: MMM, no epistaxis Eyes: Pupils equal round and reactive to light, Extraocular muscles intact Neck: No stridor, no JVD, full neck ROM Lungs: Clear to auscultation, No wheezing or rales. No increased work of breathing, no conversational dyspnea, no accessory muscle use, no nasal flaring. No respiratory distress noted Heart: Regular rate and rhythm, No murmurs, No rubs and No gallops, 2+ distal pulses (radial, femoral, posterior tibial) in all extremities Abdomen: Soft, there is no tenderness, rigidity, rebound or guarding, no obviousperitoneal signs, no palpable pulsatile abdominal masses, no auscultated abdominal bruit : No CVAT Extremities: No edema Back: No rash. No step-offs deformities. No signs of trauma. Neuro: Intact sensation L1-S1 dermatomal distributions. Intact 5/5 strength in hip flexion (T12-L3). Knee extension (L2-L4). Ankle dorsiflexion (L4-L5). Ankle plantar flexion (S1). Great toe extension (L5). 2+ patellar and AchillesDTRs. Skin: No rash or lesions noted MEDICAL DECISION MAKING: Chief Complaint: please see HPI External records reviewed: Reviewed prior imaging studies Factors affecting care: Ulcerative colitis, atrial fibrillation amongst other Social determinants of health: none History obtained from others: none Consults: none [facility] Narrative: The patient was initially hemodynamically stable, afebrile and nontoxic- appearing. Saturating 100% on room air I considered the following differential diagnosis: Pneumonia, severe anemia, I obtained labs images to further elucidate etiology of patient's complaint ALL IMAGES (IF OBTAINED) HAVE BEEN PERSONALLY REVIEWED AND INTERPRETED BY MYSELF. I have personally reviewed the patient's chest x-ray. Chest x-ray is unremarkable for pulmonary edema, pneumothorax, pneumonia or focal cardiopulmonary abnormality. CBC with leukocytosis suggestive of systemic inflammation, stable anemia, no thrombocytopenia BMP without evidence of significant electrolyte abnormalities, no anion gap, no acute kidney injury. COVID/RSV/flu negative The synthesis of the patient's history, physical exam, labs images suggest likely viral URI. No clinical/lab or imaging evidence of an acute life or limb threatening etiology. The patient is appropriate for discharge home. The patient and/or family, caregivers express understanding. The patient and/orfamily, caregivers agrees with the plan. Shared decision making: I will have a discussion with the patient and or visitors regarding risk/benefits of further testing or admission. They will be made aware of of the risk/benefits inherent in this decision they will be given the opportunity to voice understanding. Total critical care time today provided was at least 0 minutes. This excludes separately billable procedures. Critical care time (if documented) is secondary to the patient having high probability ofclinically significant/life threatening deterioration in the patient's condition which required my urgent intervention. Impression: 1. Epistaxis (resolved) 2. Viral syndrome Dispo: Discharge home This note was generated with [employer] dictation software. It may contain incorrectwords, spelling, and punctuation that were not noted in review of the chart prior to signing. Lab Data Labs: Laboratory Results - last 24 hr 03/10/25 03:17 WBC 11.9 H RBC 3.77 L Hgb 8.3 L Hct 28.3 L MCV 75.1 L MCH 22.0 L MCHC 29.3 L RDW Std Deviation 55.9 H RDW Coeff of Paulo 20.8 H Plt Count 321 MPV 9.6 Immature Gran % (Auto) 0.300 Neut % (Auto) 74.9 H Lymph % (Auto) 9.9 L Bannock % (Auto) 10.3 H Eos % (Auto) 4.0 Baso % (Auto) 0.6 Absolute Neuts (auto) 8.9 H Absolute Lymphs (auto) 1.18 Nucleated RBC % 0 Anisocytosis 1+ Sodium 136 Potassium 4.2 Chloride 105 Carbon Dioxide 22.2 Anion Gap 9 BUN 25 H Creatinine 0.77 Estim Creat Clear Calc 129.55 Est GFR (MDRD) Non-Af 106 BUN/Creatinine Ratio 32.8 H Glucose 94 Calcium 8.5 Radiography Diagnostic Testing: Clinical Impression(s) from Imaging Studies Chest X-Ray 03/10/25 03:32 IMPRESSION: Right Port-A-Cath is in good position with its tip in the superior vena cava. Unremarkable median sternotomy wires. Increased central pulmonary venous congestion. Interval appearance of bilateral basilar atelectatic pulmonary changes. Changes from prior metallic valve replacement. There is no demonstrated pleural abnormality. Enlarged cardiac silhouette. Suspected mediastinal lymphadenopathy. [place] Location: [place] [address] Discharge Plan Triage Chief Complaint: General Illness ED Provider: Aryan Ramirez Dx/Rx/DC Orders Prescriptions: No Action Cholestyramine Light 4 gram powder 4 g [...] 40 mg PO DAILY Qty: 30 2RF Primary Care Provider: Johny Rodríguez Referrals: Johny Rodríguez PA [Primary Care Provider] - Print Language: Iranian What to do if you have Problems For any increased pain, shortness of breath, bleeding, nausea or vomiting, chestpain, or any unexpected problems, contact your Primary Care Provider. Call [facility] ([phone]) or report tothe closest Emergency Room. Call 911 if necessary. 03/10/25 0503 Cosigner Signature (if applicable): CC: JACK Mccall ~ Signed [facility]06-03-2025 Radiology Diagnostic study note [facility] Imaging Services [address], [place] [address] Chest PA and Lateral MR#: [id number] Acct: [id number] Name: DENY BRONSON Rep #: [id number] : 1970 M 55 From: Ricarda Main MD PCP: JACK Mccall Status: REG ER Study:Chest PA and Lateral Date of Exam: 03/10/25 Exam# [id number] Ordering Dr: Shai Ramirez DO PROCEDURE: CHEST PA AND LATERAL 03/10/2025 REASON FOR EXAM: COUGH TECHNIQUE: Frontal and lateral views of the chest. COMPARISON: CT scan on 03/04/2025. FINDINGS: Right Port-A-Cath is in good position with its tip in the superior vena cava. Unremarkable median sternotomy wires. Increased central pulmonary venous congestion. Interval appearance of bilateral basilar atelectatic pulmonary changes. Changes from prior metallic valve replacement. There is no demonstrated pleural abnormality. Enlarged cardiac silhouette. Normal visualized pulmonary arteries. Atheromatous plaques of the visualized aortic arch and descending thoracic aorta. Diffuse spondylosis of the visualized thoracic spine. Normal visualized ribs, clavicles. Degenerative joint disease. There is no demonstrated abnormality of the visualized soft tissue structures ofthe upper abdomen. RAD/Chest PA and Lateral IMPRESSION: Right Port-A-Cath is in good position with its tip in the superior vena cava. Unremarkable median sternotomy wires. Increased central pulmonary venous congestion. Interval appearance of bilateral basilar atelectatic pulmonary changes. Changes from prior metallic valve replacement. There is no demonstrated pleural abnormality. Enlarged cardiac silhouette. Suspected mediastinal lymphadenopathy. [facility] CC: Dr. Aryan Ramirez DO; JACK Mccall ~ Carpenter And Joiner: Signed [facility]05-28-2025 Radiology Diagnostic study note [facility] Imaging Services [address] [place] [address] Chest, Abd, Pel w/Contrast MR#: [id number] Acct: [id number] Name: DENY BRONSON Rep #: [id number] : 1970 M 55 From: Rayna Lopes DO PCP: JACK Mccall Status: REG CLI Study:CT Chest, Abd, Pel w/Contrast Date of E xam: 03/04/25 Exam# [id number] Ordering Dr: Trish Ortiz MD PROCEDURE: CT [...] and PET-CT dated 12/16/2024. MRI of the abdomendated 11/24/2024. FINDINGS: CT CHEST: Hardware: Right-sided Port-A-Cath [...] nonacute findings as described above. [place] [facility] CC: Dr. Trish Ortiz MD; JACK Mccall ~ Carpenter And Joiner: Signed [facility]05-22-2025 Radiology Diagnostic study note [facility] Imaging Services [address] [place], [place] [address] Biopsy/Inj or Needle Placement MR#: [id number] Acct: [id number] Name: DENY BRONSON Rep #: [id number] : 1970 M 55 From: Tylor Montgomery MD PCP: JACK Mccall Status: REG CLI Study:Biopsy/Inj or Needle Placement Date of Exam: 02/26/25 Exam# [id number] Ordering Dr: Trish Ortiz MD PROCEDURE: BIOPSY/INJ [...] patient tolerated the procedure well. [place] Location: [place] [address] CC: Dr. Trish Ortiz MD; JACK Mccall ~ Carpenter And Joiner: Signed [facility]05-07-2025 Consult note [facility] Medical Records Department [address] [place] [address] Anesthesia Postop Eval II 02/11/25 1447 MR#: [id number] Acct: [id number] Name: DENY BRONSON Rep #:[id number] : 1970 55 From: Dwayne Castillo MD PCP: JACK Mccall Status:REG SDC Y Race: C Location: [place] [address] Anesthesia Postop Eval I Sum Postop Eval Completion status Anesthesia document: Postop Eval 1 completed: Yes Anesthesia Postop Eval I Summary Anesthesia Postop Eval I Summary: Anesthesia Postop Eval I: Assessment Summary Airway patent Yes 02/11/25 14:16 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 [email or web address] Spontaneous unlabored Yes 02/11/25 14:16 MAINTENANCE [email or web address] respirations Mental status Awake,Calm 02/11/25 14:16 MAINTENANCE [email or web address] nausea No 02/11/25 14:16 MAINTENANCE [email or web address] Vomiting No 02/11/25 14:16 MAINTENANCE [email or web address] Anesthesia Postop Eval I: Fluid Summary Crystalloid volume administer 700 02/11/25 14:16 MAINTENANCE [email or web address] (ml) Colloids volume administered ( ml) Blood Product volume administered (ml) Total IV fluid infused 700 02/11/25 14:16 MAINTENANCE [email or web address] Anesthesia Postop Eval I: Summary Notes Anesthesia Complication No 02/11/25 14:16 MAINTENANCE [email or web address] Anesthesia Complication Comment: Post-operative progress note Anesthesia: Postop Eval II Evaluation Mental status: Awake Pain Level: 0 nausea: No Vomiting: No Complications Anesthesia Complication: No 02/11/25 1447 MD> Date _ Dwayne Castillo MD [facility] Signature: Date CC: ~ Signed [facility]05-07-2025 History and physical note Author Maya Live [facility] Note Date/Time February 11, 2025 1:06pm [facility] Medical Records Department [address] [place] [address] History & Physical Exam 02/11/25 1304 MR#: [id number] Acct: [id number] Name: DENY BRONSON Rep #:[id number] : 1970 55 From: Maya Live MD PCP: JACK Mccall Status:[facility] Location: [place] [address] History and Physical Date of Admission: 02/11/25 Date of Service: 02/09/25 MR#: [id number] Acct: [id number] Name: DENY BRONSON Rep #: [id number] : 1970 Provider: Dr. Maya Live MD Age/Sex: 55/M Location: [facility] Status: Signed Intake Vital Signs 02/03/2509:22 02/09/2511:57 [...] (Lasix) 20 mg PO DAILY #30 tabs 02/19/25 05/06/2 5 Rx pantoprazole 40 mg tablet,delayed 40 [...] mg PO QDAY 02/09/25 02/10/25 History A-D) [facility] Medical History (Updated 02/10/25 @ 08:34 by [...] Patient's past medicalhistory includes [place] to [place] for ulcerative colitis in 94 with aJ-pouch at [facility], in November 2024 he was found to [...] healthy appearing, comfortable and no acute distress [facility] Head: normocephalic and atraumatic Neck Neck: [...] no further questions. Maya Live M.D. Pager: [phone] [facility] [address] [place] [address], [address] [place] [address] Office: [phone] Coding Level of Care Code Off vis,new,level [...] Maya Live MD; JACK Mccall ~* Signed [facility] Work Phone: 1(556) 573-639105-07-2025 Discharge summary [facility] Medical Records Department [address] [place] [address] Instructions for Home/Discharge Instructions 02/11/25 1444 MR#: [id number] Acct: [id number] Name: DENY BRONSON Rep #:[id number] : 1970 55 From: Maya Live MD [...] Care Provider: Johny Rodríguez Instructions Print Language: Iranian Discharge Orders/Prescriptions Prescriptions: New tramadol 50 mg [...] Live MD CC: JACK Mccall ~ Signed [facility]05-07-2025 Procedure note [facility] Medical Records Department [address] [place] [address] Operative Report 02/11/25 1410 MR#: [id number] Acct: [id number] Name: DENY BRONSON Rep #:[id number] : 1970 55 From: Maya Live MD PCP: JACK Mccall Status:REG [facility] Location: [place] [address] Operative Report (Standard) Operative Information Date of Procedure: 02/11/25 Pre-Operative Diagnosis: Z45.2, cholangiocarcinoma Post-Operative Diagnosis: Same Surgery/Procedure Performed: 1. Placement of right IJ Port-A-Cath, 2. Use of ultrasound, 3. use of fluoroscopy slip laster: No Type of Anesthesia: Local MAC RN [...] device details: PowerPort 6 Fr Bard ref [id number] Lot [id number] Special Medications: Clindamycin 900 g IV x [...] See operative report Complications Complications: No 02/11/25 5536 Cosigner Signature (if applicable): CC: Dr. Maya Live MD; JACK Mccall~ Signed [facility]05-07-2025 Radiology Diagnostic study note [facility] Imaging Services [address] [place] [address] CXR for Line Placement MR#: [id number] Acct: [id number] Name: DENY BRONSON Rep #: [id number] : 1970 M 55 From: Buzz Menard MD PCP: JACK Mccall Status: REG SDC Study:CXR for Line Placement Date of Exam: 02/11/25 Exam# [id number] Ordering Dr: Maya Live MD EXAM: AP [...] interstitial pulmonary edema noted, however. [place] Location: [place] [address] CC: Dr. Maya Live MD; JACK Mccall ~ Carpenter And Joiner: Signed [facility]05-07-2025 Consult note [facility] Medical Records Department [address] [place] [address] Anesthesia Postop Eval I 02/11/25 1415 MR#: [id number] Acct: [id number] Name: DENY BRONSON Rep #:[id number] : 1970 55 From: Himanshu Nguyen CRNA PCP: JACK Mccall Status:REG [facility] Y Race: C Location: [place] [address] Anesthesia: Postop Eval I Current Vital Signs [...] Eval 1 completed: Yes 02/11/25 1416 y MAINTENANCE TECHNICIAN> Date _ Himanshu Nguyen CRNA Cosigner Signature: Date CC: ~ Signed [facility]05-07-2025 Consult note Author Dwayne Castillo [facility] Note Date/Time February 11, 2025 11:37a m [facility] Medical Records Department [address] [place] [address] Pre-Anesthesia Evaluation 02/11/25 1130 MR#: [id number] Acct: [id number] Name: DENY BRONSON Rep #:[id number] : 1970 55 From: Dwayne Castillo MD PCP: JACK Mccall Status:REG SD Y Race: C Location: [place] [address] ASA Classification* ASA Classification ASA Classification: 4 [...] 1993 with a J- pouch at the [facility] and his pathology has previously demonstrated active [...] 10:02/03/25 RBC 3.86 M/mm3 (4.6-6.2) L 02/03/25 10:02/03/25 Hgb 8.3 g/dL (13.0-16.5) L 02/03/25 10:02/03/25 Hct 29.0 % (40-54) L 02/03/25 10:02/03/25 Plt Count 351 K/mm3 (150-450) 02/03/25 10:02/03/25 CHEMISTRY Potassium 4.2 mmol/L (3.3-5.1) 02/03/25 10:02/03/25 [...] PLACEMENT Anesthesia History Anesthesia History - supervisor [facility] house: Anesthesia History - supervisor [facility] house Hx Hospitalization Yes: 11/202402/10/25 08:35 Any Problems [...] am of surgery PONV PONV - supervisor hide house: PONV - supervisor hide house Female No 02/10/25 08:35 HX of Motion [...] 10:58 Respiratory Assessment Respiratory Assessment - supervisor hide house: Respiratory Tract Infection Hx - supervisor hide house Hx Respiratory Tract Infection No 02/10/25 08:35 STOP Sleep Apnea STOP Sleep Apnea - supervisor hide house: STOP Sleep Apnea - supervisor hide house Hx Hypertension No 02/10/25 08:35 Hx Sleep [...] Use History Tobacco Use History - supervisor hide house: Tobacco Use History - supervisor [facility] house Tobacco Use Smoking Status Never smoker 02/10/25 08:35 Hx Tobacco Use No 02/10/25 08:35 Years Smoking Packs Smoked per Day Smoking Cessation Date was within the last 15 years Hx Smoking Cessation Date Hx Smoking Cessation Counseling Hematologic Medial History Hematologic Hx - supervisor [facility] house: 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 Medical Hx - orthopedic nurse Hx of Blood Transfusion Yes 02/10/25 08:35 [...] unrespo /Reproduction History /Reproductive History - supervisor [facility] house: /Reproductive Hx- supervisor hide house Hx Now Gestational Age (in weeks): EDC: [...] MD Cosigner Signature: Date CC: ~ Signed [facility] Work Phone: 1(422) 265-738205-07-2025 History and physical note [facility] Medical Records Department [address] [place] [id number] History & Physical Exam 02/11/25 1304 MR#: [id number] Acct: [id number] Name: DENY BRONSON Rep #:[id number] : 1970 55 From: Maya Live MD PCP: JACK Mccall Status:[facility] Location: [place] [address] History and Physical Date of Admission: 02/11/25 Date of Service: 02/09/25 MR#: [id number] Acct: [id number] Name: DENY BRONSON Rep #: [id number] : 1970 Provider: Dr. Maya Live MD Age/Sex: 55/M Location: [facility] Status: Signed Intake Vital Signs 02/03/2509:22 02/09/2511:57 [...] mg PO QDAY 02/09/25 02/10/25 History A-D) [facility] Medical History (Updated 02/10/25 @ 08:34 by [...] Patient's past medicalhistory includes [place] for ulcerative colitis in 94 with aJ-pouch at [facility], in November 2024 he was found to [...] healthy appearing, comfortable and no acute distress [facility] Head: normocephalic and atraumatic Neck Neck: [...] no further questions. Maya Live M.D. Pager: [phone] [facility] [address] [place] [address], [address] [place] [address] Office: [phone] Coding Level of Care Code Off vis,new,level [...] Maya Live MD; JACK Mccall ~* Signed [facility]05-07-2025 [facility]05-07-2025 Consult note [facility] Medical Records Department [address] [place] [address] Pre-Anesthesia Evaluation 02/11/25 1130 MR#: [id number] Acct: [id number] Name: DENY BRONSON Rep #:[id number] : 1970 55 From: Dwayne Castillo MD PCP: JACK Mccall Status:REG SDC Y Race: C Location: [place] [address] ASA Classification* ASA Classification ASA Classification: 4 [...] in 1993 with a J-pouch at the [facility] and his pathology has previously demonstrated active [...] 10:02/03/25 RBC 3.86 M/mm3 (4.6-6.2) L 02/03/25 10:02/03/25 Hgb 8.3 g/dL (13.0-16.5) L 02/03/25 10:22 02/03/25 Hct 29.0 % (40-54) L 02/03/25 10:02/03/25 Plt Count 351 K/mm3 (150-450) 02/03/25 10:22 02/03/25 CHEMISTRY Potassium 4.2 mmol/L (3.3-5.1) 02/03/25 10:22 02/03/25 Sodium 134 mmol/L (133-145) 02/03/25 10:22 02/03/25 Magnesium 1.4 mg/dL (1.5-2.2) L 02/03/25 10:02/03/25 Phosphorus 3.2 mg/dL (2.7-4.5) 02/03/25 10:22 02/03/25 BUN 25 mg/dL (4-19) H 02/03/25 10:02/03/25 Creatinine 0.82 mg/dL (0.70-1.20) 02/03/25 10:02/03/25 Glucose 93 mg/dL (70-99) 02/03/25 10:22 02/03/25 POC Glucose 88 mg/dL (70-110) 09/27/18 13:25 09/27/18 TSH 7.280 uIU/mL (0.358-3.740) H 11/23/24 06:11 COAG PT 15.4 SECONDS (11.7-14.9) H 11/24/24 17:49 11/08 05/01 Pre-Assessment Diagnosis/Proposed Procedure Planned Operative Procedure(s): PORT PLACEMENT Anesthesia History Anesthesia History - supervisor [facility] house: Anesthesia History - supervisor [facility] house Hx Hospitalization Yes: 11/202402/10/25 08:35 Any Problems [...] am of surgery PONV PONV - supervisor hide house: PONV - supervisor hide house Female No 02/10/25 08:35 HX of Motion [...] 10:58 Respiratory Assessment Respiratory Assessment - supervisor hide house: Respiratory Tract Infection Hx - supervisor hide house Hx Respiratory Tract Infection No 02/10/25 08:35 STOP Sleep Apnea STOP Sleep Apnea - supervisor [facility] house: STOP Sleep Apnea - supervisor hide house Hx Hypertension No 02/10/25 08:35 Hx Sleep [...] Use History Tobacco Use History - supervisor [facility] house: Tobacco Use History - supervisor [facility] house Tobacco Use Smoking Status Never smoker 02/10/25 08:35 Hx Tobacco Use No 02/10/25 08:35 Years Smoking Packs Smoked per Day Smoking Cessation Date was within the last 15 years Hx Smoking Cessation Date Hx Smoking Cessation Counseling Hematologic Medial History Hematologic Hx - supervisor [facility]: Hematologic Medical Hx - orthopedic nurse Hx of Blood Transfusion Yes 02/10/25 08:35 [...] unrespo /Reproduction History /Reproductive History - supervisor [facility] house: /Reproductive Hx- supervisor hide house Hx Now Gestational Age (in weeks): EDC: [...] Rhythm: abnormal rhythm irregularly irregular 02/11/25 1137 > Date _ Dwayne Castillo MD Cosigner Signature: Date CC: ~ Signed [facility]04-29-2025 Evaluation note* Diagnosis Onset Date Resolution Status Admit Date Ascites chronic February 03 9:06am Mediastinal lymphadenopathy chronic February 03, 2025 9:06am Mesenteric lymphadenopathy chronic February 03, 2025 9:06am 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 chronic February 03, 2025 9:06am Pelvic lymphadenopathy chronic Ap ril 2024 9:06am Retroperitoneal lymphadenopathy consulting solution manager syed February 03, 2025 9:06am Ulcerative colitis chronic February 03, 2025 9:06am Encounter for education acute M ay 2024 9:47am Ascites chronic February 05, 2025 9:47am Mediastinal lymphadenopathy chronic February 05, 2025 9:47am Mesenteric lymphadenopathy chronic February 05, 2025 9:47am 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 chronic February 05, 2025 9: 47am Pelvic lymphadenopathy chronic Ma y 2024 9:47am Retroperitoneal lymphadenopathy consulting solution manager syed February 05, 2025 9:47am Atrial fibrillation acute February 062024 8:06am History of aortic valve replacement with bioprosthetic valve chronic February 06, 2025 8: 06am 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 chronic February 06, 2025 8: 06am Encounter for insertion of tunneled central venous catheter (CVC) with port acute February 09, 2025 2: 12pm Cholangiocarcinoma deleted February 2:12pm Atrial fibrillation acute February 132024 10:14am Cardiac murmur acute February 13, 2 025 10:14am Routine adult health maintenance acu te February 13, 2025 10:14am Iron deficiency anemia due t o chronic blood loss chronic February 13, 2025 10:14am Cholangiocarcinoma deleted February 10:14am Ascites chronic March 18 7:47am Mediastinal lymphadenopathy chronic March 18, 2025 7:47am Mesenteric lymphadenopathy chronic March 18, 2025 7:47am 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 chronic March 18, 2025 7:47am Pelvic lymphadenopathy chronic 2024 7:47am Retroperitoneal lymphadenopathy consulting solution manager syed March 18, 2025 7:47am Ulcerative colitis chronic March 082024 7:47am Ascites chronic March 25 8:40am Mediastinal lymphadenopathy chronic March 25, 2025 8:40am Mesenteric lymphadenopathy chronic March 25, 2025 8:40am 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 chronic March 25, 2025 8:40am Pelvic lymphadenopathy chronic 2024 8:40am Retroperitoneal lymphadenopathy consulting solution manager syed March 25, 2025 8:40am Ascites chronic March 31 7:50am Iron deficiency anemia due t o chronic blood loss chronic March 31 7:50am Mediastinal lymphadenopathy chronic March 31, 2025 7:50am Mesenteric lymphadenopathy chronic March 31, 2025 7:50am 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 chronic March 31, 2025 7:50am Pelvic lymphadenopathy chronic Ju 2024 7:50am Retroperitoneal lymphadenopathy consulting solution manager syed March 31, 2025 7:50am Ulcerative colitis chronic March 092024 7:50am Atrial fibrillation acute April 07, 2025 9:39am History of aortic valve replacement with bioprosthetic valve chronic April 07, 2025 9 :39am 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 chronic April 07, 2025 9 :39am Ascites chronic April 15, 2025 7:36am Iron deficiency anemia due t o chronic blood loss chronic April 15 7:36am Mediastinal lymphadenopathy chronic April 15, 2025 7:36am Mesenteric lymphadenopathy chronic April 15, 2025 7:36am 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 chronic April 15, 2025 7 :36am Pelvic lymphadenopathy chronic Ju ly 2024 7:36am Retroperitoneal lymphadenopathy consulting solution manager syed April 15, 2025 7:36am Ulcerative colitis chronic April 152024 7:36am Ascites chronic April 21 7:41am Iron deficiency anemia due t o chronic blood loss chronic April 21 7:41am Mediastinal lymphadenopathy chronic April 21, 2025 7:41am Mesenteric lymphadenopathy chronic April 21, 2025 7:41am 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 chronic April 21, 2025 7:41am Pelvic lymphadenopathy chronic ly 2024 7:41am Retroperitoneal lymphadenopathy consulting solution manager syed April 21, 2025 7:41am Ulcerative colitis chronic April 072024 7:41am Ascites chronic April 29 8:21am Iron deficiency anemia due t o chronic blood loss chronic April 29 8:21am Mediastinal lymphadenopathy chronic April 29, 2025 8:21am Mesenteric lymphadenopathy chronic April 29, 2025 8:21am 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 chronic April 29, 2025 8:21am Pelvic lymphadenopathy chronic ly 2024 8:21am Retroperitoneal lymphadenopathy consulting solution manager syed April 29, 2025 8:21am Ulcerative colitis chronic April 082024 8:21am [employer] Work Phone: 1(549) 256-991404-29-2025 Evaluation note* Diagnosis Onset Date Resolution Status Admit Date Ascites chronic February 03 9:06am Mediastinal lymphadenopathy chronic February 03, 2025 9:06am Mesenteric lymphadenopathy chronic February 03, 2025 9:06am 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 chronic February 03, 2025 9:06am Pelvic lymphadenopathy chronic Ap 2024 9:06am Retroperitoneal lymphadenopathy consulting solution manager syed February 03, 2025 9:06am Ulcerative colitis chronic February 03, 2025 9:06am Encounter for education acute M ay 2024 9:47am Ascites chronic February 05, 2025 9:47am Mediastinal lymphadenopathy chronic February 05, 2025 9:47am Mesenteric lymphadenopathy chronic February 05, 2025 9:47am 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 chronic February 05, 2025 9: 47am Pelvic lymphadenopathy chronic 2024 9:47am Retroperitoneal lymphadenopathy consulting solution manager syed February 05, 2025 9:47am Atrial fibrillation acute February 062024 8:06am History of aortic valve replacement with bioprosthetic valve chronic February 06, 2025 8: 06am 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 chronic February 06, 2025 8: 06am Encounter for insertion of tunneled central venous catheter (CVC) with port acute February 09, 2025 2: 12pm Cholangiocarcinoma deleted February 2:12pm Atrial fibrillation acute February 132024 10:14am Cardiac murmur acute February 13, 2 025 10:14am Routine adult health maintenance acu te February 13, 2025 10:14am Iron deficiency anemia due t o chronic blood loss chronic February 13, 2025 10:14am Cholangiocarcinoma deleted February 10:14am Ascites chronic March 18 7:47am Mediastinal lymphadenopathy chronic March 18, 2025 7:47am Mesenteric lymphadenopathy chronic March 18, 2025 7:47am 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 chronic March 18, 2025 7:47am Pelvic lymphadenopathy chronic 2024 7:47am Retroperitoneal lymphadenopathy consulting solution manager syed March 18, 2025 7:47am Ulcerative colitis chronic March 082024 7:47am Ascites chronic March 25 8:40am Mediastinal lymphadenopathy chronic March 25, 2025 8:40am Mesenteric lymphadenopathy chronic March 25, 2025 8:40am 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 chronic March 25, 2025 8:40am Pelvic lymphadenopathy chronic Ju ne 2024 8:40am Retroperitoneal lymphadenopathy consulting solution manager syed March 25, 2025 8:40am Ascites chronic March 31 7:50am Iron deficiency anemia due t o chronic blood loss chronic March 31 7:50am Mediastinal lymphadenopathy chronic March 31, 2025 7:50am Mesenteric lymphadenopathy chronic March 31, 2025 7:50am 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 chronic Ashley 24th, 2025 7:50am Pelvic lymphadenopathy chronic Ju ne 2024 7:50am Retroperitoneal lymphadenopathy consulting solution manager syed March 31, 2025 7:50am Ulcerative colitis chronic March 092024 7:50am Atrial fibrillation acute April 07, 2025 9:39am History of aortic valve replacement with bioprosthetic valve chronic April 07, 2025 9 :39am 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 chronic April 07, 2025 9 :39am Ascites chronic April 15, 2025 7:36am Iron deficiency anemia due t o chronic blood loss chronic April 15 7:36am Mediastinal lymphadenopathy chronic April 15, 2025 7:36am Mesenteric lymphadenopathy chronic April 15, 2025 7:36am 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 chronic April 15, 2025 7 :36am Pelvic lymphadenopathy chronic Ju ly 2024 7:36am Retroperitoneal lymphadenopathy consulting solution manager syed April 15, 2025 7:36am Ulcerative colitis chronic April 152024 7:36am Ascites chronic April 21 7:41am Iron deficiency anemia due t o chronic blood loss chronic April 21 7:41am Mediastinal lymphadenopathy chronic April 21, 2025 7:41am Mesenteric lymphadenopathy chronic April 21, 2025 7:41am 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 chronic April 21, 2025 7:41am Pelvic lymphadenopathy chronic Ju ly 2024 7:41am Retroperitoneal lymphadenopathy consulting solution manager syed April 21, 2025 7:41am Ulcerative colitis chronic April 072024 7:41am Ascites chronic April 29 8:21am Iron deficiency anemia due t o chronic blood loss chronic April 29 8:21am Mediastinal lymphadenopathy chronic April 29, 2025 8:21am Mesenteric lymphadenopathy chronic April 29, 2025 8:21am 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 chronic April 29, 2025 8:21am Pelvic lymphadenopathy chronic Ju ly 2024 8:21am Retroperitoneal lymphadenopathy consulting solution manager syed April 29, 2025 8:21am Ulcerative colitis chronic April 082024 8:21am Ascites chronic May 12 7:32am Iron deficiency anemia due t o chronic blood loss chronic May 12, 2 025 7:32am Mediastinal lymphadenopathy chronic May 12, 2025 7:32am Mesenteric lymphadenopathy chronic May 12, 2025 7:32am 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 chronic May 12, 2025 7:32am Pelvic lymphadenopathy chronic Au 2024 7:32am Retroperitoneal lymphadenopathy consulting solution manager syed May 12, 2025 7:32am Ulcerative colitis chronic May 12, 2025 7:32am [employer] Work Phone: 1(240) 723-125004-29-2025 Evaluation note* Diagnosis Onset Date Resolution Status Admit Date Ascites chronic February 03 9:06am Mediastinal lymphadenopathy chronic February 03, 2025 9:06am Mesenteric lymphadenopathy chronic February 03, 2025 9:06am 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 chronic February 03, 2025 9:06am Pelvic lymphadenopathy chronic Ap 2024 9:06am Retroperitoneal lymphadenopathy consulting solution manager syed February 03, 2025 9:06am Ulcerative colitis chronic February 03, 2025 9:06am Encounter for education acute M 2024 9:47am Ascites chronic February 05, 2025 9:47am Mediastinal lymphadenopathy chronic February 05, 2025 9:47am Mesenteric lymphadenopathy chronic February 05, 2025 9:47am 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 chronic February 05, 2025 9: 47am Pelvic lymphadenopathy chronic Ma y 2024 9:47am Retroperitoneal lymphadenopathy consulting solution manager syed February 05, 2025 9:47am Atrial fibrillation acute February 062024 8:06am History of aortic valve replacement with bioprosthetic valve chronic February 06, 2025 8: 06am 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 chronic February 06, 2025 8: 06am Encounter for insertion of tunneled central venous catheter (CVC) with port acute February 09, 2025 2: 12pm Cholangiocarcinoma deleted February 2:12pm Atrial fibrillation acute February 132024 10:14am Cardiac murmur acute February 13, 2 025 10:14am Routine adult health maintenance acu te February 13, 2025 10:14am Iron deficiency anemia due t o chronic blood loss chronic February 13, 2025 10:14am Cholangiocarcinoma deleted February 10:14am Ascites chronic March 18 7:47am Mediastinal lymphadenopathy chronic March 18, 2025 7:47am Mesenteric lymphadenopathy chronic March 18, 2025 7:47am 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 chronic March 18, 2025 7:47am Pelvic lymphadenopathy chronic Ju ne 2024 7:47am Retroperitoneal lymphadenopathy consulting solution manager syed March 18, 2025 7:47am Ulcerative colitis chronic March 082024 7:47am Ascites chronic March 25 8:40am Mediastinal lymphadenopathy chronic March 25, 2025 8:40am Mesenteric lymphadenopathy chronic March 25, 2025 8:40am 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 chronic March 25, 2025 8:40am Pelvic lymphadenopathy chronic Ju 2024 8:40am Retroperitoneal lymphadenopathy consulting solution manager syed March 25, 2025 8:40am Ascites chronic March 31 7:50am Iron deficiency anemia due t o chronic blood loss chronic March 31 7:50am Mediastinal lymphadenopathy chronic March 31, 2025 7:50am Mesenteric lymphadenopathy chronic March 31, 2025 7:50am 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 chronic March 31, 2025 7:50am Pelvic lymphadenopathy chronic Ju 2024 7:50am Retroperitoneal lymphadenopathy consulting solution manager syed March 31, 2025 7:50am Ulcerative colitis chronic March 092024 7:50am Atrial fibrillation acute April 07, 2025 9:39am History of aortic valve replacement with bioprosthetic valve chronic April 07, 2025 9 :39am 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 chronic April 07, 2025 9 :39am Ascites chronic April 15, 2025 7:36am Iron deficiency anemia due t o chronic blood loss chronic April 15 7:36am Mediastinal lymphadenopathy chronic April 15, 2025 7:36am Mesenteric lymphadenopathy chronic April 15, 2025 7:36am 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 chronic April 15, 2025 7 :36am Pelvic lymphadenopathy chronic Ju 2024 7:36am Retroperitoneal lymphadenopathy consulting solution manager syed April 15, 2025 7:36am Ulcerative colitis chronic April 152024 7:36am Ascites chronic April 21 7:41am Iron deficiency anemia due t o chronic blood loss chronic April 21 7:41am Mediastinal lymphadenopathy chronic April 21, 2025 7:41am Mesenteric lymphadenopathy chronic April 21, 2025 7:41am 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 chronic April 21, 2025 7:41am Pelvic lymphadenopathy chronic Ju ly 2024 7:41am Retroperitoneal lymphadenopathy consulting solution manager syed April 21, 2025 7:41am Ulcerative colitis chronic April 072024 7:41am Ascites chronic April 29 8:21am Iron deficiency anemia due t o chronic blood loss chronic April 29 8:21am Mediastinal lymphadenopathy chronic April 29, 2025 8:21am Mesenteric lymphadenopathy chronic April 29, 2025 8:21am 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 chronic April 29, 2025 8:21am Pelvic lymphadenopathy chronic Ju ly 2024 8:21am Retroperitoneal lymphadenopathy consulting solution manager syed April 29, 2025 8:21am Ulcerative colitis chronic April 082024 8:21am Ascites chronic May 12 7:32am Iron deficiency anemia due t o chronic blood loss chronic May 12 7:32am Mediastinal lymphadenopathy chronic May 12, 2025 7:32am Mesenteric lymphadenopathy chronic May 12, 2025 7:32am 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 chronic May 12, 2025 7:32am Pelvic lymphadenopathy chronic Au 2024 7:32am Retroperitoneal lymphadenopathy consulting solution manager syed May 12, 2025 7:32am Ulcerative colitis chronic May 12, 2025 7:32am Abdominal hernia acute May 152024 9:15am Atrial fibrillation acute Augus 2024 9:15am Encounter to establish care acute May 15, 2025 9:15am 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 chronic May 15, 2025 9:15am Ascites chronic May 27 7:32am Iron deficiency anemia due t o chronic blood loss chronic May 27, 2025 7:32am Mediastinal lymphadenopathy chronic May 27, 2025 7:32am Mesenteric lymphadenopathy chronic May 27, 2025 7:32am 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 chronic May 27 7:32am Pelvic lymphadenopathy chronic Au hany 2024 7:32am Retroperitoneal lymphadenopathy consulting solution manager syed May 27, 2025 7:32am Ulcerative colitis chronic May 27, 2025 7:32am [facility] Work Phone: 1(496) 880-346104-15-2025 Nurse Note* Nursing Notes - Gisselle Pozo RN - 01/20/2025 4:54 PM EDT [facility] via [place]. Vital signs taken and stable. Patient given drink and snacks. Family called to bedside. Patient assessed. Discharge instructions, anesthesia precautions and prescriptions explained to patient and family/friend. All questions answered by Theodora SPRING Patient meets ASU discharge criteria and discharged per MD order to home. Patient taken by wheelchair by Ana [employer] CREAM MIXER to awaiting car. All belongings gathered with patient. [facility] 24 hours post-op. [facility]04-15-2025 Miscellaneous Notes* Nursing Notes - Gisselle Pozo RN - 01/20/2025 4:54 PM EDT [facility] [place]. Vital signs taken and stable. Patient given drink and snacks. Family called to bedside. Patient assessed. Discharge instructions, anesthesia precautions and prescriptions explained to patient and family/friend. All questions answered by Theodora SPRING Patient meets ASU discharge criteria and discharged per MD order to home. Patient taken by wheelchair by Ana [employer] CREAM MIXER to awaiting car. All belongings gathered with patient. [facility] patient 24 hours post-op. [...] Ed Griggs MD - Primary SURGICAL STAFF: Sole Buffer: Yumiko Leal, RN; Theodora Anaya RN Scrub Person: Giuliano Janice ANESTHESIA: MAC Findings OPERATIVE INDICATIONS: Deny Bronson [...] - 01/20/2025 4:16 PM EDT Deny Bronson ([id number]) PRE OPERATIVE DIAGNOSIS Other ulcerative colitis with complication [K51.819] POST OPERATIVE DIAGNOSIS Other ulcerative colitis with complication [K51.819] PROCEDURE PERFORMED 1). EGD with biopsies PRIMARY CLOSURE N/A INTRAOPERATIVE FINDINGS -No significant EGD findings -Antral inflammation noted. Biopsies taken SURGEON Surgeons and Role: Panel 1: * Lazaro Perry MD - Primary Panel 2: * Ed Griggs MD - Primary ANESTHESIOLOGIST Anesthesiologist: Jaya Torres MD MAINTENANCE TECHNICIAN: Rachel Lemus APRN-MAINTENANCE TECHNICIAN SURGICAL STAFF Sole Buffer: Yumiko Leal RN; Theodora Anaya RN Scrub [...] 01/20/2025 1:[address] Richar Nolasco ([facility]) notified of tele rhythm interpretation of A-fib. Verbal order received for ECG once. 1306: Call received from Dr. Nolasco. He is placed additional lab orders. Will draw in preop. documented in this encounterU [facility] Surgery Postoperative evaluation and management note* Op [...] Ed Griggs MD - Primary SURGICAL STAFF: Sole Buffer: Yumiko Leal RN; Theodora Anaya RN Scrub [...] Griggs MD General and GI Surgery Fellow [facility]04-15-2025 Surgery Postoperative evaluation and management note* Brief Op Note - Ed Griggs MD - 01/20/2025 4:16 PM EDT Deny Bronson ([id number]) PRE OPERATIVE DIAGNOSIS Other ulcerative colitis with complication [K51.819] POST OPERATIVE DIAGNOSIS Other ulcerative colitis with complication [K51.819] PROCEDURE PERFORMED 1). EGD with biopsies PRIMARY CLOSURE N/A INTRAOPERATIVE FINDINGS -No significant EGD findings -Antral inflammation noted. Biopsies taken SURGEON Surgeons and Role: Panel 1: * Lazaro Perry MD - Primary Panel 2: * Ed Griggs MD - Primary ANESTHESIOLOGIST Anesthesiologist: Jaya Torres MD MAINTENANCE TECHNICIAN: Rachel Lemus APRN-MAINTENANCE TECHNICIAN SURGICAL STAFF Sole Buffer: Yumiko Leal RN; Theodora Anaya RN Scrub Person: Giuliano Camacho COMPLICATIONS None ESTIMATED BLOOD LOSS Minimal SPECIMENS ID Type Source Tests Collected by Time Destination 1 : Antral biopsy Permanent SURG PATH SURG PATH REQUEST Lazaro Perry MD 01/20/2025 1610 Ed Griggs MD January 20, 2025 4:16 PM [facility]04-15-2025 Hospital Discharge instructions* Discharge Instructions* Dennis Hammond MD - 01/20/2025 3:[address] Perry next week for a pathology review. Please call [phone] Patient Discharge Instructions after Anesthesia and Sedation [...] a responsible adult, other than the public public transit bus driver, must be with you Once home, [...] evening, weekend, or holiday hours, please call: -[facility] and [facility] rail switch operator at [phone]. -[facility] rail switch operator at [phone] Ask the rail switch operator to page the on-call doctor for Surgery, the service that was responsible for your care while you were in the hospital. If you having an emergency, call 911. [facility] Nurse Note* Nursing Notes - Rich Brown RN - 01/20/2025 2:17 PM EDT 1416- called patient experience Sammie; left voicemail. Patient OR delay, was wondering if could stop by to see patient/family 1430- return call from Sammie. Covering advocate, Jaiden notified of situation. [facility]04-15-2025 Nurse Note* Nursing Notes - Em Denney RN - 01/20/2025 1:[address] Richar Nolasco ([facility]) notified of tele rhythm interpretation of A-fib. Verbal order received for ECG once. 1306: Call received from Dr. Nolasco. He is placed additional lab orders. Will draw in preop. [facility]04-15-2025 History and physical note* Ed Griggs MD [...] Griggs MD General and GI Surgery Fellow [facility] Work Phone: [phone] 434-352704-15-2025 History and physical note* Ed Griggs MD [...] GI Surgery Fellow documented [facility] Nurse Surgical operation note* Rich Brown RN - 01/20/2025 11:50 AM EDT Patient denies hx of chemo and radiation. Patient denies metal or foreign objects in body EXCEPT artificial aortic valve. Patient denies hx of seizure or stroke. [facility]04[facility] Nurse Note* Rich Brown RN - 01/20/2025 11:50 AM EDT Patient denies hx of chemo and radiation. Patient denies metal or foreign objects in body EXCEPT artificial aortic valve. Patient denies hx of seizure or stroke. [facility] Evaluation note * Diagnosis Onset Date Resolution Status Admit Date Ascites chronic December 29 10:17am 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 chronic December 29, 2024 10:17am Ulcerative colitis chronic December 29, 2024 10:17am Ascites chronic February 03 9:06am Mediastinal lymphadenopathy chronic February 03, 2025 9:06am Mesenteric lymphadenopathy chronic February 03, 2025 9:06am 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 chronic February 03, 2025 9:06am Pelvic lymphadenopathy chronic Ap ril 2024 9:06am Retroperitoneal lymphadenopathy consulting solution manager syed February 03, 2025 9:06am Ulcerative colitis chronic February 03, 2025 9:06am Encounter for education acute M ay 2024 9:47am Ascites chronic February 05, 2025 9:47am Mediastinal lymphadenopathy chronic February 05, 2025 9:47am Mesenteric lymphadenopathy chronic February 05, 2025 9:47am 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 chronic February 05, 2025 9: 47am Pelvic lymphadenopathy chronic Ma y 2024 9:47am Retroperitoneal lymphadenopathy consulting solution manager syed February 05, 2025 9:47am Atrial fibrillation acute February 062024 8:06am History of aortic valve replacement with bioprosthetic valve chronic February 06, 2025 8: 06am 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 chronic February 06, 2025 8: 06am Encounter for insertion of tunneled central venous catheter (CVC) with port acute February 09, 2025 2: 12pm Cholangiocarcinoma deleted February 2:12pm Atrial fibrillation acute February 132024 10:14am Cardiac murmur acute February 13, 2 025 10:14am Routine adult health maintenance acu te February 13, 2025 10:14am Iron deficiency anemia due t o chronic blood loss chronic February 13, 2025 10:14am Cholangiocarcinoma deleted February 10:14am Ascites chronic March 18 7:47am Mediastinal lymphadenopathy chronic March 18, 2025 7:47am Mesenteric lymphadenopathy chronic March 18, 2025 7:47am 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 chronic March 18, 2025 7:47am Pelvic lymphadenopathy chronic Ju 2024 7:47am Retroperitoneal lymphadenopathy consulting solution manager syed March 18, 2025 7:47am Ulcerative colitis chronic March 082024 7:47am Ascites chronic March 25 8:40am Mediastinal lymphadenopathy chronic March 25, 2025 8:40am Mesenteric lymphadenopathy chronic March 25, 2025 8:40am 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 chronic March 25, 2025 8:40am Pelvic lymphadenopathy chronic Ju 2024 8:40am Retroperitoneal lymphadenopathy consulting solution manager syed March 25, 2025 8:40am Ascites chronic March 31 7:50am Iron deficiency anemia due t o chronic blood loss chronic March 31 7:50am Mediastinal lymphadenopathy chronic March 31, 2025 7:50am Mesenteric lymphadenopathy chronic March 31, 2025 7:50am 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 chronic March 31, 2025 7:50am Pelvic lymphadenopathy chronic Ju 2024 7:50am Retroperitoneal lymphadenopathy consulting solution manager syed March 31, 2025 7:50am Ulcerative colitis chronic March 092024 7:50am Atrial fibrillation acute April 07, 2025 9:39am History of aortic valve replacement with bioprosthetic valve chronic April 07, 2025 9 :39am 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 chronic April 07, 2025 9 :39am Ascites chronic April 15, 2025 7:36am Iron deficiency anemia due t o chronic blood loss chronic April 15 7:36am Mediastinal lymphadenopathy chronic April 15, 2025 7:36am Mesenteric lymphadenopathy chronic April 15, 2025 7:36am 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 chronic April 15, 2025 7 :36am Pelvic lymphadenopathy chronic Ju 2024 7:36am Retroperitoneal lymphadenopathy consulting solution manager syed April 15, 2025 7:36am Ulcerative colitis chronic April 152024 7:36am [facility] Work Phone: 1(548) 450-538803-24-2025 Evaluation note* Diagnosis Onset Date Resolution Status Admit Date Ascites chronic December 29 10:17am 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 chronic December 29, 2024 10:17am Ulcerative colitis chronic December 29, 2024 10:17am Ascites chronic February 03 9:06am Mediastinal lymphadenopathy chronic February 03, 2025 9:06am Mesenteric lymphadenopathy chronic February 03, 2025 9:06am 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 chronic February 03, 2025 9:06am Pelvic lymphadenopathy chronic Ap 2024 9:06am Retroperitoneal lymphadenopathy consulting solution manager syed February 03, 2025 9:06am Ulcerative colitis chronic February 03, 2025 9:06am Encounter for education acute M 2024 9:47am Ascites chronic February 05, 2025 9:47am Mediastinal lymphadenopathy chronic February 05, 2025 9:47am Mesenteric lymphadenopathy chronic February 05, 2025 9:47am 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 chronic February 05, 2025 9: 47am Pelvic lymphadenopathy chronic 2024 9:47am Retroperitoneal lymphadenopathy consulting solution manager syed February 05, 2025 9:47am Atrial fibrillation acute February 062024 8:06am History of aortic valve replacement with bioprosthetic valve chronic February 06, 2025 8: 06am 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 chronic February 06, 2025 8: 06am Encounter for insertion of tunneled central venous catheter (CVC) with port acute February 09, 2025 2: 12pm Cholangiocarcinoma deleted February 2:12pm Atrial fibrillation acute February 132024 10:14am Cardiac murmur acute February 13, 2 025 10:14am Routine adult health maintenance acu te February 13, 2025 10:14am Iron deficiency anemia due t o chronic blood loss chronic February 13, 2025 10:14am Cholangiocarcinoma deleted February 10:14am Ascites chronic March 18 7:47am Mediastinal lymphadenopathy chronic March 18, 2025 7:47am Mesenteric lymphadenopathy chronic March 18, 2025 7:47am 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 chronic March 18, 2025 7:47am Pelvic lymphadenopathy chronic Ju 2024 7:47am Retroperitoneal lymphadenopathy consulting solution manager syed March 18, 2025 7:47am Ulcerative colitis chronic March 082024 7:47am Ascites chronic March 25 8:40am Mediastinal lymphadenopathy chronic March 25, 2025 8:40am Mesenteric lymphadenopathy chronic March 25, 2025 8:40am 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 chronic March 25, 2025 8:40am Pelvic lymphadenopathy chronic Ju 2024 8:40am Retroperitoneal lymphadenopathy consulting solution manager syed March 25, 2025 8:40am Ascites chronic March 31 7:50am Iron deficiency anemia due t o chronic blood loss chronic March 31 7:50am Mediastinal lymphadenopathy chronic March 31, 2025 7:50am Mesenteric lymphadenopathy chronic March 31, 2025 7:50am 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 chronic March 31, 2025 7:50am Pelvic lymphadenopathy chronic Ju ne 2024 7:50am Retroperitoneal lymphadenopathy consulting solution manager syed March 31, 2025 7:50am Ulcerative colitis chronic March 092024 7:50am Atrial fibrillation acute April 07, 2025 9:39am History of aortic valve replacement with bioprosthetic valve chronic April 07, 2025 9 :39am 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 chronic April 07, 2025 9 :39am Ascites chronic April 15, 2025 7:36am Iron deficiency anemia due t o chronic blood loss chronic April 15 7:36am Mediastinal lymphadenopathy chronic April 15, 2025 7:36am Mesenteric lymphadenopathy chronic April 15, 2025 7:36am 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 chronic April 15, 2025 7 :36am Pelvic lymphadenopathy chronic 2024 7:36am Retroperitoneal lymphadenopathy consulting solution manager syed April 15, 2025 7:36am Ulcerative colitis chronic April 152024 7:36am Ascites chronic April 21 7:41am Iron deficiency anemia due t o chronic blood loss chronic April 21 7:41am Mediastinal lymphadenopathy chronic April 21, 2025 7:41am Mesenteric lymphadenopathy chronic April 21, 2025 7:41am 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 chronic April 21, 2025 7:41am Pelvic lymphadenopathy chronic ly 2024 7:41am Retroperitoneal lymphadenopathy consulting solution manager syed April 21, 2025 7:41am Ulcerative colitis chronic April 072024 7:41am [facility] Work Phone: 1(654) 905-645203-05-2025 Evaluation note* Diagnosis Onset Date Resolution Status Admit Date Ascites chronic December 10 10:07am 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 chronic December 10, 2024 10:07am Ulcerative colitis chronic December 10, 2024 10:07am Ascites chronic December 29 10:17am 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 chronic December 29, 2024 10:17am Ulcerative colitis chronic December 29, 2024 10:17am Ascites chronic February 03 9:06am Mediastinal lymphadenopathy chronic February 03, 2025 9:06am Mesenteric lymphadenopathy chronic February 03, 2025 9:06am 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 chronic February 03, 2025 9:06am Pelvic lymphadenopathy chronic Ap ril 2024 9:06am Retroperitoneal lymphadenopathy consulting solution manager syed February 03, 2025 9:06am Ulcerative colitis chronic February 03, 2025 9:06am Encounter for education acute M ay 2024 9:47am Ascites chronic February 05, 2025 9:47am Mediastinal lymphadenopathy chronic February 05, 2025 9:47am Mesenteric lymphadenopathy chronic February 05, 2025 9:47am 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 chronic February 05, 2025 9: 47am Pelvic lymphadenopathy chronic Ma 2024 9:47am Retroperitoneal lymphadenopathy consulting solution manager syed February 05, 2025 9:47am Atrial fibrillation acute February 062024 8:06am History of aortic valve replacement with bioprosthetic valve chronic February 06, 2025 8: 06am 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 chronic February 06, 2025 8: 06am Cholangiocarcinoma acute February 2:12pm Encounter for insertion of tunneled central venous catheter (CVC) with port acute February 09, 2025 2: 12pm Atrial fibrillation acute February 132024 10:14am Cardiac murmur acute February 13, 2 025 10:14am Cholangiocarcinoma acute February 10:14am Routine adult health maintenance acu te February 13, 2025 10:14am Iron deficiency anemia due t o chronic blood loss chronic February 13, 2025 10:14am Ascites chronic March 18 7:47am Mediastinal lymphadenopathy chronic March 18, 2025 7:47am Mesenteric lymphadenopathy chronic March 18, 2025 7:47am 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 chronic March 18, 2025 7:47am Pelvic lymphadenopathy chronic Ju 2024 7:47am Retroperitoneal lymphadenopathy consulting solution manager syed March 18, 2025 7:47am Ulcerative colitis chronic March 082024 7:47am Ascites chronic March 25 8:40am Mediastinal lymphadenopathy chronic March 25, 2025 8:40am Mesenteric lymphadenopathy chronic March 25, 2025 8:40am 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 chronic March 25, 2025 8:40am Pelvic lymphadenopathy chronic Ju ne 2024 8:40am Retroperitoneal lymphadenopathy consulting solution manager syed March 25, 2025 8:40am Ascites chronic March 31 7:50am Iron deficiency anemia due t o chronic blood loss chronic March 31 7:50am Mediastinal lymphadenopathy chronic March 31, 2025 7:50am Mesenteric lymphadenopathy chronic March 31, 2025 7:50am 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 chronic March 31, 2025 7:50am Pelvic lymphadenopathy chronic Ju 2024 7:50am Retroperitoneal lymphadenopathy consulting solution manager syed March 31, 2025 7:50am Ulcerative colitis chronic March 092024 7:50am [facility] Work Phone: 1(634) 655-851702-28-2025 Evaluation note* Diagnosis Onset Date Resolution Status Admit Date Ulcerative colitis chronic Februa 2024 8:35am Liver mass deleted December 05, 2024 8:35am Anemia noneactive December 05, 2024 8:35am Ascites chronic December 10 10:07am 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 December 10, 2024 10:07am Ulcerative colitis chronic December 10, 2024 10:07am Ascites chronic December 29 10:17am 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 chronic December 29, 2024 10:17am Ulcerative colitis chronic December 29, 2024 10:17am Ascites chronic February 03 9:06am Mediastinal lymphadenopathy chronic February 03, 2025 9:06am Mesenteric lymphadenopathy chronic February 03, 2025 9:06am 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 chronic February 03, 2025 9:06am Pelvic lymphadenopathy chronic Ap 2024 9:06am Retroperitoneal lymphadenopathy consulting solution manager syed February 03, 2025 9:06am Ulcerative colitis chronic February 03, 2025 9:06am Encounter for education acute M ay 2024 9:47am Ascites chronic February 05, 2025 9:47am Mediastinal lymphadenopathy chronic February 05, 2025 9:47am Mesenteric lymphadenopathy chronic February 05, 2025 9:47am 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 chronic February 05, 2025 9: 47am Pelvic lymphadenopathy chronic Ma y 2024 9:47am Retroperitoneal lymphadenopathy consulting solution manager syed February 05, 2025 9:47am Atrial fibrillation acute February 062024 8:06am History of aortic valve replacement with bioprosthetic valve chronic February 06, 2025 8: 06am 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 chronic February 06, 2025 8: 06am Cholangiocarcinoma [...] blood loss chronic February 13, 2025 10:14am Ascites chronic March 18 7:47am Mediastinal lymphadenopathy chronic March 18, 2025 7:47am Mesenteric lymphadenopathy chronic March 18, 2025 7:47am 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 chronic March 18, 2025 7:47am Pelvic lymphadenopathy chronic 2024 7:47am Retroperitoneal lymphadenopathy consulting solution manager syed March 18, 2025 7:47am Ulcerative colitis chronic March 082024 7:47am Ascites chronic March 25 8:40am Mediastinal lymphadenopathy chronic March 25, 2025 8:40am Mesenteric lymphadenopathy chronic March 25, 2025 8:40am 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 chronic March 25, 2025 8:40am Pelvic lymphadenopathy chronic Ju 2024 8:40am Retroperitoneal lymphadenopathy consulting solution manager syed March 25, 2025 8:40am [facility] Work Phone: 1(637) 985-394302-19-2025 [facility]02-15-2025 Evaluation note* Diagnosis Onset Date Resolution Status Admit Date Cholangiocarcinoma acute Februa 2024 7:08pm Acute anemia resolved November 7:08pm Acute GI bleeding resolved 2024 7:08pm Dyspnea on exertion resolved Febru demetrius2024 7:08pm Fatigue resolved November 22, 2024 7:08pm Lower extremity edema resolved Feb ruary 2024 7:08pm Liver mass deleted November 22, 2024 7:08pm Ulcerative colitis chronic 2024 8:35am Liver mass deleted December 05, [...] catheter (CVC) with port acute February 2:12pm [facility] Work Phone: 1(197) 641-780902-15-2025 Evaluation note* Diagnosis Onset Date Resolution Status Admit Date Cholangiocarcinoma acute Februa ry 2024 7:08pm Acute anemia resolved November 7:08pm Acute GI bleeding resolved uar y 2024 7:08pm Dyspnea on exertion resolved Febru demetrius 2024 7:08pm Fatigue resolved November 22, 2024 7:08pm Lower extremity edema resolved Feb ruary 15th, 2025 7:08pm Liver mass deleted November 22, 2024 [...] 2025 9:47am Encounter for education acute M 2024 9:47am Mediastinal lymphadenopathy acute February 05, [...] blood loss chronic February 13, 2025 10:14am [facility] Work Phone: 1(193) 440-289702-15-2025 Evaluation note* Diagnosis Onset Date Resolution Status Admit Date Cholangiocarcinoma acute Februa 2024 7:08pm Acute anemia resolved November 7:08pm Acute GI bleeding resolved Februa y 2024 7:08pm Dyspnea on exertion resolved Febru demetrius 2024 7:08pm Fatigue resolved November 22, [...] 05, 2025 9: 47am Pelvic lymphadenopathy acute Ma 2024 9:47am Retroperitoneal lymphadenopathy acut e February [...] blood loss chronic February 13, 2025 10:14am Ascites acute March 18 7:47am Mediastinal lymphadenopathy acute March 18, 2025 7:47am Mesenteric lymphadenopathy acute March 18, 2025 7:47am 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 acute March 18, 2025 7:47am Pelvic lymphadenopathy acute 2024 7:47am Retroperitoneal lymphadenopathy acut e March 18, 2025 7:47am Ulcerative colitis chronic March 082024 7:47am [facility] Work Phone: 1(851) 670-619010-18-2024 NoteHNO ID: [id number] Author: THOMAS GARCIA APRN.[employer] Service: ? Author Type: Nurse Practitioner Type: Progress Notes Filed: 07/25/2024 10:52 Note Text: This note was created using Plovghter. Subjective Deny Bronson is a 54 year [...] house is not overly tidy. I recommended uwds-pfy-jozhwye antihistamine such as Claritin or Zyrtec and discussed with him that he would benefit with having an filling separator come and evaluate his house for insects and/or bedbugs. Patient did bring a small plastic bag of things that he found on his body which appeared to be mostly scabs and mouse excrement. Thomas Garcia APRN.[facility]10-18-2024 History of Present illness Narrative* Thomas Garcia APRN.[facility] - 07/25/2024 10:17 AM EDT This note was created using Tagkastriter. Subjective Deny Bronson is a 54 year [...] house is not overly tidy. I recommended nawk-dwj-jahjbwm antihistamine such as Claritin or Zyrtec and discussed with him that he would benefit with having an filling separator come and evaluate his house for insects and/or bedbugs. Patient did bring asmall plastic bag of things that he found on his body which appeared to be mostly scabs and mouse excrement. Thomas Garcia APRN.[facility] documented [facility] Note. MICRO - Microbiology PROCEDURE: Blood Culture [...] Locations *1: This test was performed at: [address], [address] [place] [address] ([place])Comment on above:Performed By: #### PBNP #### [address] [address] #### BMP, GFR #### [address] [id number] Note. MICRO - Microbiology PROCEDURE: Blood Culture [...] Locations *1: This test was performed at: [address], [address] [place] [address] ([place])Comment on above:Performed By: #### PBNP #### [address] [id number] #### BMP, GFR #### [address] [id number] Note. MICRO - Microbiology PROCEDURE: Blood Culture [...] Locations *1: This test was performed at: [address], [address] [place] [address] ([place])Comment on above:Performed By: #### PBNP #### [address] [address] #### BMP, GFR #### [address] Note. MICRO - Microbiology PROCEDURE: Blood Culture [...] Locations *1: This test was performed at: [address], [address] [place] [address] ([place])Comment on above:Performed By: #### PBNP #### [address] [address] #### BMP, GFR #### [address] Note. MICRO - Microbiology PROCEDURE: Legionella Urine [...] Locations *1: This test was performed at: [facility], [address] [place] [address], [address]- , [facility] ([place])Comment on above:Performed By: #### PBNP #### [address] [address] #### BMP, GFR #### [address] [id number] Consult note Author Himanshu Nguyen [facility] Note Date/Time February 11, 2025 2:16pm [facility] Medical Records Department [address] [place] [id number] Anesthesia Postop Eval I 02/11/251414 MR#: [id number] Acct: [id number] Name: DENY BRONSON Rep #:[id number] : 1970 55 From: Himanshu Nguyen CRNA PCP: JACK Mccall Status:REG SDC Y Race: C Location: [place] [address] Anesthesia: Postop Eval I Current Vital Signs [...] Anesthesia document: Postop Eval 1 completed: Yes 02/11/251415 <Electronically signed by Himanshu ortiz CRNA> Date _ Himanshu Nguyen MAINTENANCE TECHNICIAN Cosigner Signature: Date CC: ~ Signed [facility] Work Phone: Consult note Author Dwayne Castillo [facility] Note Date/Time February 11, 2025 3:39pm [facility] Medical Records Department [address] [place] [address] Anesthesia Postop Eval II 02/11/25 1447 MR#: [id number] Acct: [id number] Name: DENY BRONSON Rep #:[id number] : 1970 55 From: Dwayne Castillo MD PCP: JACK Mccall Status:REG SDC Y Race: C Location: [place] [address] Anesthesia Postop Eval I Sum Postop Eval Completion status Anesthesia document: Postop Eval 1 completed: Yes Anesthesia Postop Eval I Summary Anesthesia Postop Eval I Summary: Anesthesia Postop Eval I: Assessment Summary Airway patent Yes 02/11/25 14:16 MAINTENANCE [email or web address] Spontaneous unlabored Yes 02/11/25 14:16 MAINTENANCE TECHNICIAN.PKEL respirations Mental status Awake,Calm 02/11/25 14:16 MAINTENANCE [email or web address] nausea No 02/11/25 14:16 MAINTENANCE [email or web address] Vomiting No 02/11/25 14:16 MAINTENANCE TECHNICIAN.PKEL Anesthesia Postop Eval I: Fluid Summary Crystalloid volume administer 700 02/11/25 14:16 MAINTENANCE TECHNICIAN.PKEL (ml) Colloids volume administered ( ml) Blood Product volume administered (ml) Total IV fluid infused 700 02/11/25 14:16 MAINTENANCE TECHNICIAN.PKEL Anesthesia Postop Eval I: Summary Notes Anesthesia Complication No 02/11/25 14:16 MAINTENANCE TECHNICIAN.PKEL Anesthesia Complication Comment: Post-operative progress note Anesthesia: Postop Eval II Evaluation Mental status: Awake Pain Level: 0 nausea: No Vomiting: No Complications Anesthesia Complication: No 02/11/25 1447 <Electronically signed by Dwayne Castillo MD> Date _ Dwayne Castillo MD Cosigner Signature: Date CC: ~ Signed [facility] Work Phone: Discharge summary [facility] Note Date/Time February 11, 2025 2:46pm [facility] Medical Records Department [address] [place] [address] Instructions for Home/Discharge Instructions 02/11/25 1444 MR#: [id number] Acct: [id number] Name: DENY BRONSON Rep #:[id number] : 1970 55 From: Maya Live MD [...] Care Provider: Johny Rodríguez Instructions Print Language: Iranian Discharge Orders/Prescriptions Prescriptions: New tramadol 50 mg [...] Live MD CC: JACK Mccall ~ Signed [facility] Work Phone: Discharge summary Author Aryan Ramirez [facility] Note Date/Time March 10, 2025 5:03a [facility] Medical Records Department [address] [place] [address] Emergency Department Summary 03/10/25 MR#: [id number] Acct: [id number] Name: DENY BRONSON Rep #:[id number] : 1970 55 From: Aryan Hyde PCP: JACK Mccall Status:REG ER Location: ED HPI History of Present Illness Chief Complaint: General Illness [facility] Medical History Wears glasses Cancer Anemia Easy [...] / Time acetaminophen Allergy Mild Itching Verified 03/10/25 01:33 Penicillins (PCN) Allergy PT UNSURE Verified 03/10/25 01:33 OF REACTION Family History Other Heart disease Surgical History History of esophagogastroduodenoscopy (EGD) Hx of surgical procedure S/P proctocolectomy (~1993) Hx laparoscopic cholecystectomy History of right and left heart catheterization (LHC) (~07/12/01) History of aortic valve replacement with bioprosthetic valve Social History Smoking Status: Never smoker alcohol intake: current alcohol intake frequency: holidays/special occasions only details: occasional substance use type: does not use EXAM Physical Exam Const Vital Signs: 03/10/25 01:33 03/10/25 01:33 03/10/25 03:33 Temperature 98.6 F Temperature Source Oral Pulse Rate 103 H 96 Respiratory Rate 21 H 20 H Respiratory Effort Normal Non-Labored Respiratory Pattern Normal Blood Pressure 135/72 H 107/57 L Blood Pressure Mean 93 73 Pulse Ox 100 100 Oxygen Delivery Method Room Air Room Air [facility] Narrative Medical decision making narrative: HISTORY OF PRESENT ILLNESS: Chief complaint: Runny nose, epistaxis 55-year-old male presents with primary concern of epistaxis. Notes today he is felt diffuse muscle aches, felt fatigued. Notes he had a nosebleed prior to arrival. This concerned him as he was passing clots. He notes bleeding has since ceased. He denies sick contacts. Denies shortness of breath. Does note a dry cough. Denies fever. Denies falls or other trauma. Also notes lower back pain. Patient denies any saddle anesthesia, urinary retention, bowel or bladder incontinence, lower extremity weakness, fever or IV drug use, no recent spinal manipulation or surgery, no recent urinary catheterization. REVIEW OF SYSTEMS: Pertinent positives: Runny nose, epistaxis, back pain Pertinent negatives: Syncope, focal weakness PHYSICAL EXAM: Nursing triage notes reviewed, Vital signs reviewed Constitutional: please see [facility] HENT: MMM, no epistaxis Eyes: Pupils equal round and reactive to light, Extraocular muscles intact Neck: No stridor, no JVD, full neck ROM Lungs: Clear to auscultation, No wheezing or rales. No increased work of breathing, no conversational dyspnea, no accessory muscle use, no nasal flaring. No respiratory distress noted Heart: Regular rate and rhythm, No murmurs, No rubs and No gallops, 2+ distal pulses (radial, femoral, posterior tibial) in all extremities Abdomen: Soft, there is no tenderness, rigidity, rebound or guarding, no obviousperitoneal signs, no palpable pulsatile abdominal masses, no auscultated abdominal bruit : No CVAT Extremities: No edema Back: No rash. No step-offs deformities. No signs of trauma. Neuro: Intact sensation L1-S1 dermatomal distributions. Intact 5/5 strength in hip flexion (T12-L3). Knee extension (L2-L4). Ankle dorsiflexion (L4-L5). Ankle plantar flexion (S1). Great toe extension (L5). 2+ patellar and AchillesDTRs. Skin: No rash or lesions noted MEDICAL DECISION MAKING: Chief Complaint: please see [facility] External records reviewed: Reviewed prior imaging studies Factors affecting care: Ulcerative colitis, atrial fibrillation amongst other Social determinants of health: none History obtained from others: none Consults: none [facility] Narrative: The patient was initially hemodynamically stable, afebrile and nontoxic- appearing. Saturating 100% on room air I considered the following differential diagnosis: Pneumonia, severe anemia, I obtained labs images to further elucidate etiology of patient's complaint ALL IMAGES (IF OBTAINED) HAVE BEEN PERSONALLY REVIEWED AND INTERPRETED BY MYSELF. I have personally reviewed the patient's chest x-ray. Chest x-ray is unremarkable for pulmonary edema, pneumothorax, pneumonia or focal cardiopulmonary abnormality. CBC with leukocytosis suggestive of systemic inflammation, stable anemia, no thrombocytopenia BMP without evidence of significant electrolyte abnormalities, no anion gap, no acute kidney injury. COVID/RSV/flu negative The synthesis of the patient's history, physical exam, labs images suggest likely viral URI. No clinical/lab or imaging evidence of an acute life or limb threatening etiology. The patient is appropriate for discharge home. The patient and/or family, caregivers express understanding. The patient and/orfamily, caregivers agrees with the plan. Shared decision making: I will have a discussion with the patient and or visitors regarding risk/benefits of further testing or admission. They will be made aware of of the risk/benefits inherent in this decision they will be given the opportunity to voice understanding. Total critical care time today provided was at least 0 minutes. This excludes separately billable procedures. Critical care time (if documented) is secondary to the patient having high probability of clinically significant/life threatening deterioration in the patient's condition which required my urgent intervention. Impression: 1. Epistaxis (resolved) 2. Viral syndrome Dispo: Discharge home This note was generated with [employer] dictation software. It may contain incorrectwords, spelling, and punctuation that were not noted in review of the chart prior to signing. Lab Data Labs: Laboratory Results - last 24 hr 03/10/25 03:17 WBC 11.9 H RBC 3.77 L Hgb 8.3 L Hct 28.3 L MCV 75.1 L MCH 22.0 L MCHC 29.3 L RDW Std Deviation 55.9 H RDW Coeff of Paulo 20.8 H Plt Count 321 MPV 9.6 Immature Gran % (Auto) 0.300 Neut % (Auto) 74.9 H Lymph % (Auto) 9.9 L Bannock % (Auto) 10.3 H Eos % (Auto) 4.0 Baso % (Auto) 0.6 Absolute Neuts (auto) 8.9 H Absolute Lymphs (auto) 1.18 Nucleated RBC % 0 Anisocytosis 1+ Sodium 136 Potassium 4.2 Chloride 105 Carbon Dioxide 22.2 Anion Gap 9 BUN 25 H Creatinine 0.77 Estim Creat Clear Calc 129.55 Est GFR (MDRD) Non-Af 106 BUN/Creatinine Ratio 32.8 H Glucose 94 Calcium 8.5 Radiography Diagnostic Testing: Clinical Impression(s) from Imaging Studies Chest X-Ray 03/10/25 03:32 IMPRESSION: Right Port-A-Cath is in good position with its tip in the superior vena cava. Unremarkable median sternotomy wires. Increased central pulmonary venous congestion. Interval appearance of bilateral basilar atelectatic pulmonary changes. Changes from prior metallic valve replacement. There is no demonstrated pleural abnormality. Enlarged cardiac silhouette. Suspected mediastinal lymphadenopathy. Reading Location: [place] [address] Discharge Plan Triage Chief Complaint: General Illness ED Provider: Aryan Ramirez Dx/Rx/DC Orders Prescriptions: No Action Cholestyramine Light 4 gram powder 4 g [...] 40 mg PO DAILY Qty: 30 2RF Primary Care Provider: Johny Rodríguez Referrals: Johny Rodríguez PA [Primary Care Provider] - Print Language: Iranian What to do if you have Problems For any increased pain, shortness of breath, bleeding, nausea or vomiting, chestpain, or any unexpected problems, contact your Primary Care Provider. Call [facility] ([phone]) or report to the closest Emergency Room. Call 911 if necessary. 03/10/25 0503 <Electronically signed by Aryan Ramirez DO> Cosigner Signature (if applicable): CC: JACK Mccall ~ Signed [facility] Work Phone: Evaluation noteNo assessment information available [facility] Work Phone: Evaluation note* Diagnosis Insect bites and stings, initial encounter- [facility] Other ulcerative colitis with complication- [facility] Additional Instructions Thank you for trusting us with your care today! Please take Tylenol (2 pills, 650 mg), ibuprofen (2 pills, 400 mg) every 6 hours as needed for pain and fever control. Please return to the emergency department if your symptoms change or worsen. Please follow with your primary care physician for further outpatient evaluation and management.[facility] Work Phone: Hospital Discharge instructionsAdditional Instructions Report directly to the infusion center first thing tomorrow morning with your infusion instrument/machine. They will need to figure out how much chemotherapy you still require. Wash the area with warm water and soap where you had the chemotherapy contact your skin. [facility] Work Phone: Progress note Author Trish Ortiz [facility] Note Date/Time April 15, 2025 10:17 am [facility] [address] [place] [address] OFFICE VISIT Date of Service: 04/15/25 0925 MR#: [id number] Acct: [id number] Name: DENY BRONSON Rep #: [id number] : 1970 From: Trish reagan MD Age/Sex: 55/M Location: [facility] Status: Signed HPI Subjective Date of Service 04/15/25 Chief Complaint Metastatic cancer to liver History of Present Illness 55-year-old male past medical history notable for ulcerative colitis status posttotal proctocolectomy in 1993 with a J-pouch at [facility] and pathology reported extensive chronic and active colitis and low-grade epithelial dysplasia.. He was hospitalized in November 2024 after he reported bleeding and black melanotic stools was found with a hemoglobin of 5.7 g per DL. November 22, 2024 CTA: IMPRESSION: 1. No acute pulmonary embolism within the proximal pulmonary arteries. 2. Severe cardiomegaly. Dilation of the main pulmonary trunk, which can be seenwith pulmonary artery hypertension. 3. Dilation of the [...] granulomatosis with polyangiitis. Correlation with prior imaging recommendedas neoplasm can not be excluded. November 24, [...] biopsy: Fragments of duodenal mucosa with mild Ernst?s gland hyperplasia. B. Colon anastomosis, biopsy: Fragments of colonic mucosa with extensive ulceration, acute and chronic inflammation, granulation tissue reaction and reactive epithelial changes November 25, 2024 Liver mass, CT guided core biopsy: Well differentiated glands with intestinal differentiation, consistent with well-differentiated adenocarcinoma. Liver tissue is not present. The specimen is sent to [facility] for expert opinion, reviewed by Dr. Harding and theabove diagnosis is rendered. The complete report is [...] and pouchoscopy with biopsies: No primary identified. February 26, 2025 CT-guided liver biopsy #2 further testing at [facility]: MICROSCOPIC DIAGNOSIS A. Liver, ?neoplasm?, CT-guided core biopsy: - Well-differentiated adenocarcinoma ? see note and Comment. o Note: This histology is similar to the previous biopsy ([id number]) with the addition of foci suggestive of desmoplasia and invasion noted, supporting a neoplastic process. IHC (performed at [facility] and [facility]) show the tumor cells to be positive for CDX2, Villin, CK20, CK19, and SATB2 (patchy); and negative for CK7. o These findings are most consistent with a gastrointestinal primary. Although cholangiocarcinoma cannot be entirely ruled out, the findings strongly raise the possibility of a metastasis from a colorectal primary. Treatment summary and response: Modified FOLFOX 6 March 18, 2025 [facility] Medical History (Updated 04/15/25 @ 10:[address] Trish Ortiz MD) Wears glasses Cancer Anemia Easy bruising Excessive [...] liver of unknown origin Ulcerative colitis Ascites Atrial fibrillation HUANG (dyspnea on exertion) Nonrheumatic aortic (valve) stenosis Bicuspid aortic valve Acute kidney injury Chest pain, unspecified Asthma Churg-Geronimo syndrome Surgical History History of esophagogastroduodenoscopy (EGD) Hx of surgical procedure S/P proctocolectomy (~1993) Hx laparoscopic cholecystectomy History of right and left heart catheterization (LHC) (~07/12/01) History of aortic valve replacement with bioprosthetic valve Family History Other Heart disease Social History Smoking Status: Never smoker alcohol intake: current alcohol intake frequency: holidays/special occasions only details: occasional substance use type: does not use ROS Constitutional Constitutional: Reports systems reviewed and no addt'l complaints, except as documented, fatigue and other; Denies anorexia, fever(s) or weight loss Eyes Eyes: Reports systems reviewed and no addt'l complaints, except as documented ENT HEENT: Reports systems reviewed and no addt'l complaints, except as documented; Denies mouth lesions Cardiovascular Cardiovascular: Reports systems reviewed and no addt'l complaints, except as documented and edema; Denies chest pain Respiratory/Chest Respiratory/Chest: Reports systems reviewed and no addt'l complaints, except as documented and dyspnea on exertion; Denies wheezing Gastrointestinal Gastrointestinal: Reports systems reviewed and no addt'l complaints, except as documented, as per HPI, diarrhea, hematochezia and other Details: Chronic diarrhea (years) manageable, imodium once/d A single episode of nausea appears to be related to food intolerance. Occasional small blood per stool ; Denies change in bowel habits or melena Genitourinary Genitourinary: Reports systems reviewed and no addt'l complaints, except as documented; Denies hematuria Musculoskeletal Musculoskeletal: Denies back pain Integumentary Integumentary: Reports systems reviewed and no addt'l complaints, except as documented; Denies new lesions Neurologic Neurologic: Reports systems reviewed and no addt'l complaints, except as documented; Denies focal weakness, frequent falls or paresthesias Psychiatric Psychiatric: Reports systems reviewed and no addt'l complaints, except as documented Endocrine Endocrinology: Reports systems reviewed and no addt'l complaints, except as documented Hematologic/Lymphatic Hematologic/Lymphatic: Reports anemia; Denies lymphadenopathy Allergic/Immunologic Allergic/Immunologic: Reports systems reviewed and no addt'l complaints, except as documented Intake Vital Signs 03/18/25 09:14 04/15/25 09:26 04/15/25 09:41 Height 6 ft 3 in 6 ft 3 in 6 ft 3 in Weight: 93.043 kg BMI 25.6 BP 102/65 Blood Pressure Location Lt brachial Position Sitting Respiration 16 Pulse 90 Pulse Source Monitor Temp 97.2 F L Temperature Source Temporal Artery Pulse Oximetry (%) 97 Oxygen Delivery Method room air Intake Is patient in pain?: No Allergies acetaminophen Allergy (Mild, Verified 04/15/25 09:40) Itching Penicillins (PCN) Allergy (Verified 04/15/25 09:40) PT UNSURE OF REACTION Medications ?Medication ?Instructions ?Recorded ?Confirmed ?Type guaifenesin 1,200 mg tablet, 1,200 mg PO DAILY 5 04/15/25 History extended release 12 hr (Mucinex) pantoprazole 40 mg tablet,delayed 40 mg PO DAILY #30 t abs 11/26/24 04/15/25 Rx release cholestyramine-aspartame 4 gram 4 g PO TID #239.4 gram s 12/05/24 04/15/25 Rx oral powder (Cholestyramine Light) metoprolol succinate 25 mg 25 mg PO QDAY #90 tabs 12/0204/15/25 Rx tablet,extended release 24 hr (Toprol XL) loperamide 2 mg capsule (Imodium 2 mg PO QDAY 02/09/25 04/15/25 History A-D) lidocaine-prilocaine 2.5 %-2.5 % 1 applic topical ONCE PRN port 03/18/25 04/15/25 Rx topical cream access 30 days #30 grams ondansetron 8 mg disintegrating 8 mg PO Q8H PRN nausea and 03/18/25 04/15/25 Rx tablet vomiting #30 tabs prochlorperazine maleate 10 mg 10 mg PO Q6H PRN nausea and 03/18/25 04/15/25 Rx tablet vomiting #30 tabs Have you fallen in the past year?: No Central Venous Access Central Venous Access: Yes Port/PICC: Port Exam Physical Exam Narrative ECOG 2 Const no apparent distress General Appearance: ill appearing Positive for chronically, frail and appears older than stated age HEENT Face and Sinus: normal facial exam Eyes General Eye: normal appearance of both eyes Neck no lymphadenopathy and no JVD Resp clear to auscultation bilaterally Cardio Rhythm: abnormal rhythm GI soft to palpation and non-tender Inspection: visible herniation and other Other Details: Abdominal and inguinal hernias Palpation: hepatomegaly Back/Spine no thoracic nor lumbar tenderness Extremity General Extremity: edema bilateral lower extremity Details: severe; Negative forclubbing or cyanosis Skin no wounds Neuro oriented x3, CN's II-XII intact bilaterally and moves all extremities Coordination / Balance: afbzru-uo-ibio test normal Speech: speech normal Gait (Neuro): normal gait Psych cooperative Psych Narrative: Very poor historian. Coding Level of Care Code Off vis,est,level 4 Exam Problem Focused Diagnoses Metastasis to liver of unknown origin C78.7; C80.1 Malignant ascites R18.0 Ascites type: malignant Mediastinal lymphadenopathy R59.0 Retroperitoneal lymphadenopathy R59.0 Mesenteric lymphadenopathy R59.0 Pelvic lymphadenopathy R59.0 Other ulcerative colitis with rectal bleeding K51.811 Ulcerative colitis location: other ulcerative colitis Digestive disease complication type: with rectal bleeding Iron deficiency anemia due to chronic blood loss D50.0 Assessment and Plan Assessment and Plan (1) Metastasis to liver of unknown origin: Status: Chronic Comment: Most likely colorectal primary. (2) Ascites: Status: Chronic Qualifiers: Ascites type: malignant Qualified Code(s): R18.0 - Malignant ascites (3) Mediastinal lymphadenopathy: Status: Chronic (4) Retroperitoneal lymphadenopathy: Status: Chronic (5) Mesenteric lymphadenopathy: Status: Chronic (6) Pelvic lymphadenopathy: Status: Chronic (7) Ulcerative colitis: Status: Chronic Qualifiers: Ulcerative colitis location: other ulcerative colitis Digestive diseasecomplication type: with rectal bleeding Qualified Code(s): K51.811 - Other ulcerative colitis with rectal bleeding Comment: Hx ileal-anal anastomosis with J-pouch (8) Iron deficiency anemia due to chronic blood loss: Status: Chronic Plan 55-year-old male history notable for ulcerative colitis status post total proctocolectomy with J-pouch in 1993 at [facility] (extensive colitis and low-grade dysplasia). Patient was hospitalized in November 2024 with severe anemia due to acute and chronic GI bleeding. Imaging shows a hepatic mass on biopsy and adenocarcinoma with intestinal differentiation most likely metastaticadenocarcinoma of unknown primary most likely primary colorectal. Next generation sequence colorectal panel was negative including K-garcia NRAS and IDH 1/IDH [address] mutation negative[address] MSI intact. CT scan of November 2024 suggested necrotic J-pouch anastomosis but direct visualization by endoscopy and biopsies did not confirm that. PET/CT December 2024 shows avid uptake in the left hepatic lobe. In addition patient has mediastinal lymphadenopathy, diffuse retroperitoneal, periportal, mesenteric and bilateral pelvic lymphadenopathy and ascites although the uptake in these was less intense and by PET could not be distinguished whether malignant or representing granulomatous disease. January 2025 underwent EGD and pouch colonoscopies at [facility] and no primary was identified. A number of tumor markers were drawn during hospital stay but none are diagnostic of any specific primary and cannot be interpreted. Notably CEA was not elevated. Case was discussed in multidisciplinary tumor conference at [facility] prompting additional pathology and additional liver biopsy. 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 Started mFOLFOX6 March 18, 2026, no G3-4 toxicities Chronic comorbid conditions: Atrial fibrillation, not anticoagulated due to GI bleeding November 2024 and no identified reversible source, nonrheumatic valvular heart disease, cardiomyopathy with chronic congestive heart failure, history of Churg-Geronimo syndrome, history of ulcerative colitis as above, patient lives alone with no social support apart from what his [id number] canprovide (ex- disabled in a long term facility). Plan: 1. Continue systemic chemotherapy with palliative intent modified FOLFOX 6 . 2. IV iron for recurrent iron deficiency anemia. 3. Referred to palliative. 4. CEA tumor marker was not elevated at diagnosis and therefore of no value in follow-up Impression and plan discussed with patient, . Trish Ortiz MD [employer], [facility] Divisions of Medical Oncology & Hematology Department of Internal Medicine [facility] [place] [phone] This note was generated using a voice recognition system software. Although itwas reviewed by the author prior to finalization, it may still contain incorrectwords, spelling, and punctuation that were not noted when reviewing prior to saving. If a clinically significant typo or inaccurately typed phrase is noted, please notify the author. Clinical Quality Measures Falls Risk Screening/Assistive Devices Have you fallen in the past year?: No 04/15/25 1017 <Electronically signed by Trish barba MD> Date _ Trish Ortiz MD Cosigner Signature: Date (if applicable) CC: ~ [facility] [employer] Work Phone: Reason for referral (narrative)* Radiology (Routine) - New Request Specialty Diagnoses / Procedures Referred By Cary gibbons Referred To Contact Procedures ECG Richar Nolasco MD [address] [place] [address] Phone: tel: fax: Referral ID Status Reason Start Date Expiration Date V isits Requested Visits Authorized [id number] New Request 01/20/2025 02/14/2026 [facility] Auth/Cert Specialty Diagnoses / Procedures Referred By Cary gibbons Referred To Contact Diagnoses Other ulcerative colitis with complication Other ulcerative colitis with complication [K51.819] Procedures VA COLONOSCOPY FLX DX W/COLLJ SPEC WHEN PFRMD VA ESOPHAGOGASTRODUODENOSCOPY TRANSORAL DIAGNOSTIC COLONOSCOPY DIAGNOSTIC EGD DIAGNOSTIC Lazaro Perry MD [address] [facility] [place] [address] [place] [address] Phone: tel: fax: [facility] [address] [place] [address] Referral ID Status Reason Start Date Expiration Date Visits Re quested Visits Authorized [id number] 1 1 [facility] Summary Purpose Family History No Family History Records Found Relationship Condition Age at Onset Recorded Date/T arnold Not Specified Cardiac disease Unknown Advance Directives No Advanced Directives Records Found Advance Directive Response Recorded Date/ Time Advance Directives No January 01, 014 5:07pm Living Will No June 25, 2020 10:52am Power of Product Demonstrator No June 10:52am Advance Directive Response Recorded Date/ Time Do you have a Healthcare Power of Product Demonstrator? No February 10, 2025 8:35am Living Will No November 22 8:52pm Do you have a Healthcare Power of Product Demonstrator? No November 22, 2024 8:52pm Advance Directives No January 01 5:07pm Advance Directive Response Recorded Date/ Time Do you have a Healthcare Power of Product Demonstrator? No February 10, 2025 8:35am Living Will No November 22 8:52pm Do you have a Healthcare Power of Product Demonstrator? No November 22, 2024 8:52pm Do you have a Healthcare Power of Product Demonstrator? No March 10, 2025 1:33am Advance Directives No January 01 5:07pm Advance Directive Response Recorded Date/ Time Living Will No March 20, 2025 12:01pm Do you have a Healthcare Power of Product Demonstrator? No March 20, 2025 12:01pm Advance Directives No March 20 12:01pm Do you have a Healthcare Power of Product Demonstrator? No February 10, 2025 8:35am Living Will No November 22 8:52pm Do you have a Healthcare Power of Product Demonstrator? No November 22, 2024 8:52pm Do you have a Healthcare Power of Product Demonstrator? No March 10, 2025 1:33am Advance Directive Response Recorded Date/ Time Living Will No March 20, 2025 12:01pm Do you have a Healthcare Power of Product Demonstrator? No March 20, 2025 12:01pm Advance Directives No March 20 12:01pm Do you have a Healthcare Power of Product Demonstrator? No February 10, 2025 8:35am Do you have a Healthcare Power of Product Demonstrator? No March 10, 2025 1:33am Advance Directive Response Recorded Date/ Time Living Will No April 03, 2025 12:45pm Do you have a Healthcare Power of Product Demonstrator? No April 03, 2025 12:45pm Advance Directives No April 03 12:45pm Do you have a Healthcare Power of Product Demonstrator? No February 10, 2025 8:35am Do you have a Healthcare Power of Product Demonstrator? No March 10, 2025 1:33am Advance Directive Response Recorded Date/ Time Living Will No April 15, 2025 7 :53am Do you have a Healthcare Power of Product Demonstrator? No April 15, 2025 7:53am Advance Directives No April 15 7:53am Do you have a Healthcare Power of Product Demonstrator? No February 10, 2025 8:35am Do you have a Healthcare Power of Product Demonstrator? No March 10, 2025 1:33am Advance Directive Response Recorded Date/ Time Living Will No April 17, 2025 11:41am Do you have a Healthcare Power of Product Demonstrator? No April 17, 2025 11:41am Advance Directives No April 17 11:41am Do you have a Healthcare Power of Product Demonstrator? No February 10, 2025 8:35am Do you have a Healthcare Power of Product Demonstrator? No March 10, 2025 1:33am Advance Directive Response Recorded Date/ Time Living Will No April 29, 2025 10:30am Do you have a Healthcare Power of Product Demonstrator? No April 29, 2025 10:30am Advance Directives No April 29 10:30am Do you have a Healthcare Power of Product Demonstrator? No February 10, 2025 8:35am Do you have a Healthcare Power of Product Demonstrator? No March 10, 2025 1:33am Do you have a Healthcare Power of Product Demonstrator? No April 30, 2025 8:44pm Advance Directive Response Recorded Date/ Time Living Will No May 14, 2025 11:03am Do you have a Healthcare Power of Product Demonstrator? No May 14, 2025 11:03am Advance Directives No May 14 11:03am Do you have a Healthcare Power of Product Demonstrator? No February 10, 2025 8:35am Do you have a Healthcare Power of Product Demonstrator? No March 10, 2025 1:33am Do you have a Healthcare Power of Product Demonstrator? No April 30, 2025 8:44pm Chief Complaint and Reason for Visit Chief [...] 7am Metastasis to liver of unknown origin [facility] 2024 10:07am Ulcerative colitis December 10, 2024 10:0 7am Ascites December 29, 2024 10: 17am Metastasis to liver of unknown origin [facility] 2024 10:17am Ulcerative colitis December 29, 2024 [...] Metastasis to liver of unknown origin [facility] 2024 10:07am Ulcerative colitis December 10, 2024 10:0 7am Ascites December 29, 2024 10: 17am Metastasis to liver of unknown origin [facility] 2024 10:17am Ulcerative colitis December 29, 2024 [...] karie and in March 04, 2025 3:40pm Chief Complaint Admit Date SEVERE ANEMIA November [...] karie and in March 04, 2025 3:40pm general illness March 10, 2025 1:32a m Chief Complaint Admit Date SEVERE ANEMIA November [...] A FIB/ONCOLOGY PT February 13, 2025 10:14am LIVER BIOPSY February 26, 2025 7:09a m 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 and in March 04, 2025 3:40pm general illness March 10, 2025 1:32a m [facility] - [facility] - [facility] March 18 7:47am PI MODIFIER March 18, 2025 8:15 am Reason for Visit Admit Date Cholangiocarcinoma November [...] Metastasis to liver of unknown origin [facility] 2024 10:07am Ulcerative colitis December 10, 2024 10:0 7am Ascites December 29, 2024 10: 17am Metastasis to liver of unknown origin [facility] 2024 10:17am Ulcerative colitis December 29, 2024 [...] bl ood loss February 13, 2025 10:14am Ascites March 18, 2025 7:47 am Mediastinal lymphadenopathy March 18, 2 025 7:47am Mesenteric lymphadenopathy March 18 7:47am Metastasis to liver of unknown origin [facility] 2024 7:47am Pelvic lymphadenopathy March 18, 2025 7 :47am Retroperitoneal lymphadenopathy March 7:47am Ulcerative colitis March 18, 2025 7:47 am Chief Complaint Admit Date SEVERE ANEMIA November 22, 2024 7:08pm SEVERE ANEMIA November 25, 2024 5:10pm SEVERE [...] A FIB/ONCOLOGY PT February 13, 2025 10:14am LIVER BIOPSY February 26, 2025 7:09a m 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 and in March 04, 2025 3:40pm general illness March 10, 2025 1:32a m [facility] - [facility] March 18 7:47am TOX CHECK - LABS March 25, 2025 8:40 am PI MODIFIER March 25, 2025 9:15 am Chief Complaint Admit Date Anemia December 05, 2024 8:35am ADENOCARCINOMA LIVER DIFFUSE RP ADENOPAT HY December 10, 2024 10:07am REVIEW PET December 29, 2024 10: 17am F/U AFTER [facility] (GET NOTE/PATH) January 9:06am CHEMO ED February 05, 2025 9:47am AFIB(ISCKRARUS) February 06, 2025 8:06am PORT PLACEMENT February 09, 2025 2:12pm ACUTE - FU ON A FIB/ONCOLOGY PT February 13, 2025 10:14am LIVER BIOPSY February 26, 2025 7:09a m 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 and in March 04, 2025 3:40pm general illness March 10, 2025 1:32a m [facility] March 18 7:47am TOX CHECK - LABS March 25, 2025 8:40 am 2 WKS - LABS - [facility] March 31, 2025 7: 50am PI MODIFIER March 31, 2025 9:00 am Reason for Visit Admit Date Ulcerative colitis December 05, 2024 8:35am Liver mass December 05, 2024 8:35am Anemia December 05, 2024 8:35am Ascites December 10, 2024 10:0 7am Metastasis to liver of unknown origin [facility] 2024 10:07am Ulcerative colitis December 10, 2024 10:0 7am Ascites December 29, 2024 10: 17am Metastasis to liver of unknown origin [facility] 2024 10:17am Ulcerative colitis December 29, 2024 10: 17am Ascites February 03, 2025 9:0 6am Mediastinal lymphadenopathy February 03, 2025 9:06am Mesenteric lymphadenopathy February 03, 025 9:06am Metastasis to liver of unknown origin Ap ril 2024 9:06am Pelvic lymphadenopathy February 03, 2025 9:06am Retroperitoneal lymphadenopathy February 032024 9:06am Ulcerative colitis February 03, 2025 9:0 6am Encounter for education February 05, 2025 9: 47am Ascites February 05, 2025 9:47am Mediastinal lymphadenopathy February 05 9:47am Mesenteric lymphadenopathy February 05, 2025 9:47am Metastasis to liver of unknown origin Ma y 2024 9:47am Pelvic lymphadenopathy February 05, 2025 9:4 7am Retroperitoneal lymphadenopathy February 05, 2025 9:47am Atrial fibrillation February 06, 2025 8:06am History of aortic valve repl acement with bioprosthetic valve February 06, 2025 8:06am Metastasis to liver of unknown origin Ma y 2024 8:06am Cholangiocarcinoma February 09, 2025 2:12pm Encounter for insertion of t unneled central venous catheter (CVC) with port February 09, 2025 2:12pm Atrial fibrillation February 13, 2025 10:14a m Cardiac murmur February 13, 2025 10:14a m Cholangiocarcinoma February 13, 2025 10:14a m Routine adult health maintenance February 10:14am Iron deficiency anemia due to chronic bl ood loss February 13, 2025 10:14am Ascites March 18, 2025 7:47 am Mediastinal lymphadenopathy March 18 7:47am Mesenteric lymphadenopathy March 18 7:47am Metastasis to liver of unknown origin [facility] ne 2024 7:47am Pelvic lymphadenopathy March 18, 2025 7 :47am Retroperitoneal lymphadenopathy March 7:47am Ulcerative colitis March 18, 2025 7:47 am Ascites March 25, 2025 8:40 am Mediastinal lymphadenopathy March 25 8:40am Mesenteric lymphadenopathy March 25 8:40am Metastasis to liver of unknown origin [facility] 2024 8:40am Pelvic lymphadenopathy March 25, 2025 8 :40am Retroperitoneal lymphadenopathy March 8:40am Chief Complaint Admit Date ADENOCARCINOMA LIVER DIFFUSE RP ADENOPAT HY December 10, 2024 10:07am REVIEW PET December 29, 2024 10: 17am F/U AFTER [facility] (GET NOTE/PATH) January 9:06am CHEMO ED February 05, 2025 9:47am AFIB(ISCKRARUS) February 06, 2025 8:06am PORT PLACEMENT February 09, 2025 2:12pm ACUTE - FU ON A FIB/ONCOLOGY PT February 13, 2025 10:14am LIVER BIOPSY February 26, 2025 7:09a m 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 and in March 04, 2025 3:40pm general illness March 10, 2025 1:32a m [facility] March 18 7:47am TOX CHECK - LABS March 25, 2025 8:40 am 2 WKS - LAB[facility] - [facility] March 31, 2025 7: 50am PI MODIFIER April 03, 2025 12:3 0pm 2 M FU April 07, 2025 9:39a m Reason for Visit Admit Date Ascites December 10, 2024 10:0 7am Metastasis to liver of unknown origin [facility] 2024 10:07am Ulcerative colitis December 10, 2024 10:0 7am Ascites December 29, 2024 10: 17am Metastasis to liver of unknown origin [facility] 2024 10:17am Ulcerative colitis December 29, 2024 10: 17am Ascites February 03, 2025 9:0 6am Mediastinal lymphadenopathy February 03, 2025 9:06am Mesenteric lymphadenopathy February 03 025 9:06am Metastasis to liver of unknown origin Ap ril 2024 9:06am Pelvic lymphadenopathy February 03, 2025 9:06am Retroperitoneal lymphadenopathy February 032024 9:06am Ulcerative colitis February 03, 2025 9:0 6am Encounter for education February 05, 2025 9: 47am Ascites February 05, 2025 9:47am Mediastinal lymphadenopathy February 05 9:47am Mesenteric lymphadenopathy February 05, 2025 9:47am Metastasis to liver of unknown origin Ma y 2024 9:47am Pelvic lymphadenopathy February 05, 2025 9:4 7am Retroperitoneal lymphadenopathy February 05, 2025 9:47am Atrial fibrillation February 06, 2025 8:06am History of aortic valve replacement with bioprosthetic valve February 06, 2025 8:06am Metastasis to liver of unknown origin Ma y 2024 8:06am Cholangiocarcinoma February 09, 2025 2:12pm Encounter for insertion of t unneled central venous catheter (CVC) with port February 09, 2025 2:12pm Atrial fibrillation February 13, 2025 10:14a m Cardiac murmur February 13, 2025 10:14a m Cholangiocarcinoma February 13, 2025 10:14a m Routine adult health maintenance February 10:14am Iron deficiency anemia due to chronic bl ood loss February 13, 2025 10:14am Ascites March 18, 2025 7:47 am Mediastinal lymphadenopathy March 18 025 7:47am Mesenteric lymphadenopathy March 18 7:47am Metastasis to liver of unknown origin [facility] 2024 7:47am Pelvic lymphadenopathy March 18, 2025 7 :47am Retroperitoneal lymphadenopathy March 7:47am Ulcerative colitis March 18, 2025 7:47 am Ascites March 25, 2025 8:40 am Mediastinal lymphadenopathy March 25 8:40am Mesenteric lymphadenopathy March 25 8:40am Metastasis to liver of unknown origin [facility] ne 2024 8:40am Pelvic lymphadenopathy March 25, 2025 8 :40am Retroperitoneal lymphadenopathy March 8:40am Ascites March 31, 2025 7:50 am Iron deficiency anemia due to chronic bl ood loss March 31, 2025 7:50am Mediastinal lymphadenopathy March 31 025 7:50am Mesenteric lymphadenopathy March 31 7:50am Metastasis to liver of unknown origin [facility] 2024 7:50am Pelvic lymphadenopathy March 31, 2025 7 :50am Retroperitoneal lymphadenopathy March 7:50am Ulcerative colitis March 31, 2025 7:50 am Chief Complaint Admit Date REVIEW PET December 29, 2024 10: 17am F/U AFTER [facility] (GET NOTE/PATH) January 9:06am CHEMO ED February 05, 2025 9:47am AFIB(ISCKRARUS) February 06, 2025 8:06am PORT PLACEMENT February 09, 2025 2:12pm ACUTE - FU ON A FIB/ONCOLOGY PT February 13, 2025 10:14am LIVER BIOPSY February 26, 2025 7:09a m 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 and in March 04, 2025 3:40pm general illness March 10, 2025 1:32a m [facility] March 18 7:47am TOX CHECK - LABS March 25, 2025 8:40 am 2 WKS - LAB[facility] - [facility] March 31, 2025 7: 50am 2 M FU April 07, 2025 9:39a m 2 WKS - LAB[facility] - [facility] April 15, 2025 7:3 6am PI MODIFIER April 15, 2025 7:45a m Reason for Visit Admit Date Ascites December 29, 2024 10: 17am Metastasis to liver of unknown origin [facility] 2024 10:17am Ulcerative colitis December 29, 2024 10: 17am Ascites February 03, 2025 9:0 6am Mediastinal lymphadenopathy February 03, 2025 9:06am Mesenteric lymphadenopathy February 03, 2 025 9:06am Metastasis to liver of unknown origin Ap ril 2024 9:06am Pelvic lymphadenopathy February 03, 2025 9:06am Retroperitoneal lymphadenopathy February 032024 9:06am Ulcerative colitis February 03, 2025 9:0 6am Encounter for education February 05, 2025 9: 47am Ascites February 05, 2025 9:47am Mediastinal lymphadenopathy February 05 9:47am Mesenteric lymphadenopathy February 05, 2025 9:47am Metastasis to liver of unknown origin Ma y 2024 9:47am Pelvic lymphadenopathy February 05, 2025 9:4 7am Retroperitoneal lymphadenopathy February 05, 2025 9:47am Atrial fibrillation February 06, 2025 8:06am History of aortic valve replacement with bioprosthetic valve February 06, 2025 8:06am Metastasis to liver of unknown origin Ma y 2024 8:06am Encounter for insertion of t unneled central venous catheter (CVC) with port February 09, 2025 2:12pm Cholangiocarcinoma February 09, 2025 2:12pm Atrial fibrillation February 13, 2025 10:14a m Cardiac murmur February 13, 2025 10:14a m Routine adult health maintenance February 10:14am Iron deficiency anemia due to chronic bl ood loss February 13, 2025 10:14am Cholangiocarcinoma February 13, 2025 10:14a m Ascites March 18, 2025 7:47 am Mediastinal lymphadenopathy March 18, 025 7:47am Mesenteric lymphadenopathy March 18 7:47am Metastasis to liver of unknown origin Ju ne 2024 7:47am Pelvic lymphadenopathy March 18, 2025 7 :47am Retroperitoneal lymphadenopathy March 7:47am Ulcerative colitis March 18, 2025 7:47 am Ascites March 25, 2025 8:40 am Mediastinal lymphadenopathy March 25, 025 8:40am Mesenteric lymphadenopathy March 25 8:40am Metastasis to liver of unknown origin ne 2024 8:40am Pelvic lymphadenopathy March 25, 2025 8 :40am Retroperitoneal lymphadenopathy March 8:40am Ascites March 31, 2025 7:50 am Iron deficiency anemia due to chronic bl ood loss March 31, 2025 7:50am Mediastinal lymphadenopathy March 31, 025 7:50am Mesenteric lymphadenopathy March 31 7:50am Metastasis to liver of unknown origin Ju ne 2024 7:50am Pelvic lymphadenopathy March 31, 2025 7 :50am Retroperitoneal lymphadenopathy March 7:50am Ulcerative colitis March 31, 2025 7:50 am Atrial fibrillation April 07, 2025 9:39a m History of aortic valve replacement with bioprosthetic valve April 07, 2025 9:39am Metastasis to liver of unknown origin Ju ly 2024 9:39am Ascites April 15, 2025 7:36a m Iron deficiency anemia due to chronic bl ood loss April 15, 2025 7:36am Mediastinal lymphadenopathy April 15 7:36am Mesenteric lymphadenopathy April 15 7:36am Metastasis to liver of unknown origin Ju ly 2024 7:36am Pelvic lymphadenopathy April 15, 2025 7: 36am Retroperitoneal lymphadenopathy April 7:36am Ulcerative colitis April 15, 2025 7:36a m Chief Complaint Admit Date REVIEW PET December 29, 2024 10: 17am F/U AFTER [facility] (GET NOTE/PATH) January 9:06am CHEMO ED February 05, 2025 9:47am AFIB(ISCKRARUS) February 06, 2025 8:06am PORT PLACEMENT February 09, 2025 2:12pm ACUTE - FU ON A FIB/ONCOLOGY PT February 13, 2025 10:14am LIVER BIOPSY February 26, 2025 7:09a m 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 and in March 04, 2025 3:40pm general illness March 10, 2025 1:32a m [facility] - [facility] March 18 7:47am TOX CHECK - LABS March 25, 2025 8:40 am 2 WKS - LAB[facility] - [facility] March 31, 2025 7: 50am 2 M FU April 07, 2025 9:39a m 2 WKS - LABS - [facility] April 15, 2025 7:3 6am TOX CHECK - LABS April 21, 2025 7:41 am PI MODIFIER April 21, 2025 8:00 am Reason for Visit Admit Date Ascites December 29, 2024 10: 17am Metastasis to liver of unknown origin [facility] 2024 10:17am Ulcerative colitis December 29, 2024 10: 17am Ascites February 03, 2025 9:0 6am Mediastinal lymphadenopathy February 03, 2025 9:06am Mesenteric lymphadenopathy February 03, 2 025 9:06am Metastasis to liver of unknown origin Ap ril 2024 9:06am Pelvic lymphadenopathy February 03, 2025 9:06am Retroperitoneal lymphadenopathy February 032024 9:06am Ulcerative colitis February 03, 2025 9:0 6am Encounter for education February 05, 2025 9: 47am Ascites February 05, 2025 9:47am Mediastinal lymphadenopathy February 05 9:47am Mesenteric lymphadenopathy February 05, 2025 9:47am Metastasis to liver of unknown origin Ma y 2024 9:47am Pelvic lymphadenopathy February 05, 2025 9:4 7am Retroperitoneal lymphadenopathy February 05, 2025 9:47am Atrial fibrillation February 06, 2025 8:06am History of aortic valve replacement with bioprosthetic valve February 06, 2025 8:06am Metastasis to liver of unknown origin Ma y 2024 8:06am Encounter for insertion of t unneled central venous catheter (CVC) with port February 09, 2025 2:12pm Cholangiocarcinoma February 09, 2025 2:12pm Atrial fibrillation February 13, 2025 10:14a m Cardiac murmur February 13, 2025 10:14a m Routine adult health maintenance February 10:14am Iron deficiency anemia due to chronic bl ood loss February 13, 2025 10:14am Cholangiocarcinoma February 13, 2025 10:14a m Ascites March 18, 2025 7:47 am Mediastinal lymphadenopathy March 18, 025 7:47am Mesenteric lymphadenopathy March 18 7:47am Metastasis to liver of unknown origin Ju ne 2024 7:47am Pelvic lymphadenopathy March 18, 2025 7 :47am Retroperitoneal lymphadenopathy March 7:47am Ulcerative colitis March 18, 2025 7:47 am Ascites March 25, 2025 8:40 am Mediastinal lymphadenopathy March 25, 2 025 8:40am Mesenteric lymphadenopathy March 25 8:40am Metastasis to liver of unknown origin Ju ne 2024 8:40am Pelvic lymphadenopathy March 25, 2025 8 :40am Retroperitoneal lymphadenopathy March 8:40am Ascites March 31, 2025 7:50 am Iron deficiency anemia due to chronic bl ood loss March 31, 2025 7:50am Mediastinal lymphadenopathy March 31, 2 025 7:50am Mesenteric lymphadenopathy March 31 7:50am Metastasis to liver of unknown origin Ju ne 2024 7:50am Pelvic lymphadenopathy March 31, 2025 7 :50am Retroperitoneal lymphadenopathy March 7:50am Ulcerative colitis March 31, 2025 7:50 am Atrial fibrillation April 07, 2025 9:39a m History of aortic valve replacement with bioprosthetic valve April 07, 2025 9:39am Metastasis to liver of unknown origin Ju ly 2024 9:39am Ascites April 15, 2025 7:36a m Iron deficiency anemia due to chronic bl ood loss April 15, 2025 7:36am Mediastinal lymphadenopathy April 15 7:36am Mesenteric lymphadenopathy April 15 7:36am Metastasis to liver of unknown origin Ju ly 2024 7:36am Pelvic lymphadenopathy April 15, 2025 7: 36am Retroperitoneal lymphadenopathy April 7:36am Ulcerative colitis April 15, 2025 7:36a m Ascites April 21, 2025 7:41 am Iron deficiency anemia due to chronic bl ood loss April 21, 2025 7:41am Mediastinal lymphadenopathy April 21, 025 7:41am Mesenteric lymphadenopathy April 21 7:41am Metastasis to liver of unknown origin Ju ly 2024 7:41am Pelvic lymphadenopathy April 21, 2025 7 :41am Retroperitoneal lymphadenopathy April 7:41am Ulcerative colitis April 21, 2025 7:41 am Chief Complaint Admit Date F/U AFTER [facility] (GET NOTE/PATH) January 9:06am CHEMO ED February 05, 2025 9:47am AFIB(ISCKRARUS) February 06, 2025 8:06am PORT PLACEMENT February 09, 2025 2:12pm ACUTE - FU ON A FIB/ONCOLOGY PT February 13, 2025 10:14am LIVER BIOPSY February 26, 2025 7:09a m 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 and in March 04, 2025 3:40pm general illness March 10, 2025 1:32a m [facility] - [facility] - [facility] March 18 7:47am TOX CHECK - LABS March 25, 2025 8:40 am 2 WKS - LABS - [facility] March 31, 2025 7: 50am 2 M FU April 07, 2025 9:39a m 2 WKS - LABS - [facility] April 15, 2025 7:3 6am TOX CHECK - LABS April 21, 2025 7:41 am 2 WKS - LABS - [facility] April 29, 2025 8: 21am PI MODIFIER April 29, 2025 8:45 am Reason for Visit Admit Date Ascites February 03, 2025 9:0 6am Mediastinal lymphadenopathy February 03, 2025 9:06am Mesenteric lymphadenopathy February 03, 025 9:06am Metastasis to liver of unknown origin Ap ril 2024 9:06am Pelvic lymphadenopathy February 03, 2025 9:06am Retroperitoneal lymphadenopathy February 032024 9:06am Ulcerative colitis February 03, 2025 9:0 6am Encounter for education February 05, 2025 9: 47am Ascites February 05, 2025 9:47am Mediastinal lymphadenopathy February 05 9:47am Mesenteric lymphadenopathy February 05, 2025 9:47am Metastasis to liver of unknown origin Ma y 2024 9:47am Pelvic lymphadenopathy February 05, 2025 9:4 7am Retroperitoneal lymphadenopathy February 05, 2025 9:47am Atrial fibrillation February 06, 2025 8:06am History of aortic valve replacement with bioprosthetic valve February 06, 2025 8:06am Metastasis to liver of unknown origin Ma y 2024 8:06am Encounter for insertion of t unneled central venous catheter (CVC) with port February 09, 2025 2:12pm Cholangiocarcinoma February 09, 2025 2:12pm Atrial fibrillation February 13, 2025 10:14a m Cardiac murmur February 13, 2025 10:14a m Routine adult health maintenance February 10:14am Iron deficiency anemia due to chronic bl ood loss February 13, 2025 10:14am Cholangiocarcinoma February 13, 2025 10:14a m Ascites March 18, 2025 7:47 am Mediastinal lymphadenopathy March 18 025 7:47am Mesenteric lymphadenopathy March 18 7:47am Metastasis to liver of unknown origin Ju ne 2024 7:47am Pelvic lymphadenopathy March 18, 2025 7 :47am Retroperitoneal lymphadenopathy March 7:47am Ulcerative colitis March 18, 2025 7:47 am Ascites March 25, 2025 8:40 am Mediastinal lymphadenopathy March 25 025 8:40am Mesenteric lymphadenopathy March 25 8:40am Metastasis to liver of unknown origin Ju ne 2024 8:40am Pelvic lymphadenopathy March 25, 2025 8 :40am Retroperitoneal lymphadenopathy March 8:40am Ascites March 31, 2025 7:50 am Iron deficiency anemia due to chronic bl ood loss March 31, 2025 7:50am Mediastinal lymphadenopathy March 31 7:50am Mesenteric lymphadenopathy March 31 7:50am Metastasis to liver of unknown origin Ju ne 2024 7:50am Pelvic lymphadenopathy March 31, 2025 7 :50am Retroperitoneal lymphadenopathy March 7:50am Ulcerative colitis March 31, 2025 7:50 am Atrial fibrillation April 07, 2025 9:39a m History of aortic valve replacement with bioprosthetic valve April 07, 2025 9:39am Metastasis to liver of unknown origin Ju ly 2024 9:39am Ascites April 15, 2025 7:36a m Iron deficiency anemia due to chronic bl ood loss April 15, 2025 7:36am Mediastinal lymphadenopathy April 15 7:36am Mesenteric lymphadenopathy April 15 7:36am Metastasis to liver of unknown origin Ju ly 2024 7:36am Pelvic lymphadenopathy April 15, 2025 7: 36am Retroperitoneal lymphadenopathy April 7:36am Ulcerative colitis April 15, 2025 7:36a m Ascites April 21, 2025 7:41 am Iron deficiency anemia due to chronic bl ood loss April 21, 2025 7:41am Mediastinal lymphadenopathy April 21, 025 7:41am Mesenteric lymphadenopathy April 21 7:41am Metastasis to liver of unknown origin Ju ly 2024 7:41am Pelvic lymphadenopathy April 21, 2025 7 :41am Retroperitoneal lymphadenopathy April 7:41am Ulcerative colitis April 21, 2025 7:41 am Ascites April 29, 2025 8:21 am Iron deficiency anemia due to chronic bl ood loss April 29, 2025 8:21am Mediastinal lymphadenopathy April 29, 2 025 8:21am Mesenteric lymphadenopathy April 29 8:21am Metastasis to liver of unknown origin Ju ly 2024 8:21am Pelvic lymphadenopathy April 29, 2025 8 :21am Retroperitoneal lymphadenopathy April 8:21am Ulcerative colitis April 29, 2025 8:21 am Chief Complaint Admit Date F/U AFTER [facility] (GET NOTE/PATH) January 9:06am CHEMO ED February 05, 2025 9:47am AFIB(ISCKRARUS) February 06, 2025 8:06am PORT PLACEMENT February 09, 2025 2:12pm ACUTE - FU ON A FIB/ONCOLOGY PT February 13, 2025 10:14am LIVER BIOPSY February 26, 2025 7:09a m 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 and in March 04, 2025 3:40pm general illness March 10, 2025 1:32a m NEW START - LABS - [facility] March 18 7:47am TOX CHECK - LABS March 25, 2025 8:40 am 2 WKS - LABS - [facility] March 31, 2025 7: 50am 2 M FU April 07, 2025 9:39a m 2 WKS - LABS - [facility] April 15, 2025 7:3 6am TOX CHECK - LABS April 21, 2025 7:41 am 2 WKS - LABS - [facility] April 29, 2025 8: 21am PI MODIFIER April 29, 2025 8:45 am other April 30, 2025 8:18 pm Chief Complaint Admit Date F/U AFTER [facility] (GET NOTE/PATH) January 9:06am CHEMO ED February 05, 2025 9:47am AFIB(ISCKRARUS) February 06, 2025 8:06am PORT PLACEMENT February 09, 2025 2:12pm ACUTE - FU ON A FIB/ONCOLOGY PT February 13, 2025 10:14am LIVER BIOPSY February 26, 2025 7:09a m 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 and in March 04, 2025 3:40pm general illness March 10, 2025 1:32a m NEW START - LABS - [facility] March 18 7:47am TOX CHECK - LABS March 25, 2025 8:40 am 2 WKS - LABS - [facility] March 31, 2025 7: 50am 2 M FU April 07, 2025 9:39a m 2 WKS - LABS - [facility] April 15, 2025 7:3 6am TOX CHECK - LABS April 21, 2025 7:41 am 2 WKS - LABS - [facility] April 29, 2025 8: 21am other April 30, 2025 8:18 pm PI MODIFIER May 12, 2025 7:3 0am 2 WKS - LABS - [facility] May 12, 2025 7 :32am Reason for Visit Admit Date Ascites February 03, 2025 9:0 6am Mediastinal lymphadenopathy February 03, 2025 9:06am Mesenteric lymphadenopathy February 03, 2 025 9:06am Metastasis to liver of unknown origin Ap ril 2024 9:06am Pelvic lymphadenopathy February 03, 2025 9:06am Retroperitoneal lymphadenopathy February 032024 9:06am Ulcerative colitis February 03, 2025 9:0 6am Encounter for education February 05, 2025 9: 47am Ascites February 05, 2025 9:47am Mediastinal lymphadenopathy February 05 9:47am Mesenteric lymphadenopathy February 05, 2025 9:47am Metastasis to liver of unknown origin Ma y 2024 9:47am Pelvic lymphadenopathy February 05, 2025 9:4 7am Retroperitoneal lymphadenopathy February 05, 2025 9:47am Atrial fibrillation February 06, 2025 8:06am History of aortic valve replacement with bioprosthetic valve February 06, 2025 8:06am Metastasis to liver of unknown origin Ma y 2024 8:06am Encounter for insertion of t unneled central venous catheter (CVC) with port February 09, 2025 2:12pm Cholangiocarcinoma February 09, 2025 2:12pm Atrial fibrillation February 13, 2025 10:14a m Cardiac murmur February 13, 2025 10:14a m Routine adult health maintenance February 10:14am Iron deficiency anemia due to chronic bl ood loss February 13, 2025 10:14am Cholangiocarcinoma February 13, 2025 10:14a m Ascites March 18, 2025 7:47 am Mediastinal lymphadenopathy March 18, 2 025 7:47am Mesenteric lymphadenopathy March 18 7:47am Metastasis to liver of unknown origin Ju ne 2024 7:47am Pelvic lymphadenopathy March 18, 2025 7 :47am Retroperitoneal lymphadenopathy March 7:47am Ulcerative colitis March 18, 2025 7:47 am Ascites March 25, 2025 8:40 am Mediastinal lymphadenopathy March 25 8:40am Mesenteric lymphadenopathy March 25 8:40am Metastasis to liver of unknown origin Ju ne 2024 8:40am Pelvic lymphadenopathy March 25, 2025 8 :40am Retroperitoneal lymphadenopathy March 8:40am Ascites March 31, 2025 7:50 am Iron deficiency anemia due to chronic bl ood loss March 31, 2025 7:50am Mediastinal lymphadenopathy March 31 7:50am Mesenteric lymphadenopathy March 31 7:50am Metastasis to liver of unknown origin Ju ne 2024 7:50am Pelvic lymphadenopathy March 31, 2025 7 :50am Retroperitoneal lymphadenopathy March 7:50am Ulcerative colitis March 31, 2025 7:50 am Atrial fibrillation April 07, 2025 9:39a m History of aortic valve replacement with bioprosthetic valve April 07, 2025 9:39am Metastasis to liver of unknown origin Ju ly 2024 9:39am Ascites April 15, 2025 7:36a m Iron deficiency anemia due to chronic bl ood loss April 15, 2025 7:36am Mediastinal lymphadenopathy April 15 7:36am Mesenteric lymphadenopathy April 15 7:36am Metastasis to liver of unknown origin Ju ly 2024 7:36am Pelvic lymphadenopathy April 15, 2025 7: 36am Retroperitoneal lymphadenopathy April 7:36am Ulcerative colitis April 15, 2025 7:36a m Ascites April 21, 2025 7:41 am Iron deficiency anemia due to chronic bl ood loss April 21, 2025 7:41am Mediastinal lymphadenopathy April 21 7:41am Mesenteric lymphadenopathy April 21 7:41am Metastasis to liver of unknown origin Ju ly 2024 7:41am Pelvic lymphadenopathy April 21, 2025 7 :41am Retroperitoneal lymphadenopathy April 7:41am Ulcerative colitis April 21, 2025 7:41 am Ascites April 29, 2025 8:21 am Iron deficiency anemia due to chronic bl ood loss April 29, 2025 8:21am Mediastinal lymphadenopathy April 29 025 8:21am Mesenteric lymphadenopathy April 29 8:21am Metastasis to liver of unknown origin Ju ly 2024 8:21am Pelvic lymphadenopathy April 29, 2025 8 :21am Retroperitoneal lymphadenopathy April 8:21am Ulcerative colitis April 29, 2025 8:21 am Ascites May 12, 2025 7:3 2am Iron deficiency anemia due to chronic bl ood loss May 12, 2025 7:32am Mediastinal lymphadenopathy May 12, 2025 7:32am Mesenteric lymphadenopathy May 12 2 025 7:32am Metastasis to liver of unknown origin Au 2024 7:32am Pelvic lymphadenopathy May 12, 2025 7:32am Retroperitoneal lymphadenopathy May 122024 7:32am Ulcerative colitis May 12, 2025 7:3 2am Chief Complaint Admit Date F/U AFTER [facility] (GET NOTE[facility]PATH) January 9:06am CHEMO ED February 05, 2025 9:47am AFIB(ISCKRARUS) February 06, 2025 8:06am PORT PLACEMENT February 09, 2025 2:12pm ACUTE - FU ON A FIB/ONCOLOGY PT February 13, 2025 10:14am LIVER BIOPSY February 26, 2025 7:09a m 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 EST CARE - ONCOLOGY PT May 15, 025 9:15am PI MODIFIER May 27, 2025 7: 30am 2 WKS - LABS - [facility] May 27, 2025 7:32am Reason for Visit Admit Date Ascites February 03, 2025 9:0 6am Mediastinal lymphadenopathy February 03, 2025 9:06am Mesenteric lymphadenopathy February 03, 9:06am Metastasis to liver of unknown origin Ap ril 2024 9:06am Pelvic lymphadenopathy February 03, 2025 9:06am Retroperitoneal lymphadenopathy February 032024 9:06am Ulcerative colitis February 03, 2025 9:0 6am Encounter for education February 05, 2025 9: 47am Ascites February 05, 2025 9:47am Mediastinal lymphadenopathy February 05 9:47am Mesenteric lymphadenopathy February 05, 2025 9:47am Metastasis to liver of unknown origin Ma y 2024 9:47am Pelvic lymphadenopathy February 05, 2025 9:4 7am Retroperitoneal lymphadenopathy February 05, 2025 9:47am Atrial fibrillation February 06, 2025 8:06am History of aortic valve replacement with bioprosthetic valve February 06, 2025 8:06am Metastasis to liver of unknown origin Ma y 2024 8:06am Encounter for insertion of t unneled central venous catheter (CVC) with port February 09, 2025 2:12pm Cholangiocarcinoma February 09, 2025 2:12pm Atrial fibrillation February 13, 2025 10:14a m Cardiac murmur February 13, 2025 10:14a m Routine adult health maintenance February 10:14am Iron deficiency anemia due to chronic bl ood loss February 13, 2025 10:14am Cholangiocarcinoma February 13, 2025 10:14a m Ascites March 18, 2025 7:47 am Mediastinal lymphadenopathy March 18 7:47am Mesenteric lymphadenopathy March 18 7:47am Metastasis to liver of unknown origin Ju ne 2024 7:47am Pelvic lymphadenopathy March 18, 2025 7 :47am Retroperitoneal lymphadenopathy March 7:47am Ulcerative colitis March 18, 2025 7:47 am Ascites March 25, 2025 8:40 am Mediastinal lymphadenopathy March 25 025 8:40am Mesenteric lymphadenopathy March 25 8:40am Metastasis to liver of unknown origin Ju ne 2024 8:40am Pelvic lymphadenopathy March 25, 2025 8 :40am Retroperitoneal lymphadenopathy March 8:40am Ascites March 31, 2025 7:50 am Iron deficiency anemia due to chronic bl ood loss March 31, 2025 7:50am Mediastinal lymphadenopathy March 31 7:50am Mesenteric lymphadenopathy March 31 7:50am Metastasis to liver of unknown origin Ju ne 2024 7:50am Pelvic lymphadenopathy March 31, 2025 7 :50am Retroperitoneal lymphadenopathy March 7:50am Ulcerative colitis March 31, 2025 7:50 am Atrial fibrillation April 07, 2025 9:39a m History of aortic valve replacement with bioprosthetic valve April 07, 2025 9:39am Metastasis to liver of unknown origin Ju ly 2024 9:39am Ascites April 15, 2025 7:36a m Iron deficiency anemia due to chronic bl ood loss April 15, 2025 7:36am Mediastinal lymphadenopathy April 15 7:36am Mesenteric lymphadenopathy April 15 7:36am Metastasis to liver of unknown origin Ju ly 2024 7:36am Pelvic lymphadenopathy April 15, 2025 7: 36am Retroperitoneal lymphadenopathy April 7:36am Ulcerative colitis April 15, 2025 7:36a m Ascites April 21, 2025 7:41 am Iron deficiency anemia due to chronic bl ood loss April 21, 2025 7:41am Mediastinal lymphadenopathy April 21 025 7:41am Mesenteric lymphadenopathy April 21 7:41am Metastasis to liver of unknown origin Ju ly 2024 7:41am Pelvic lymphadenopathy April 21, 2025 7 :41am Retroperitoneal lymphadenopathy April 7:41am Ulcerative colitis April 21, 2025 7:41 am Ascites April 29, 2025 8:21 am Iron deficiency anemia due to chronic bl ood loss April 29, 2025 8:21am Mediastinal lymphadenopathy April 29 8:21am Mesenteric lymphadenopathy April 29 8:21am Metastasis to liver of unknown origin Ju ly 2024 8:21am Pelvic lymphadenopathy April 29, 2025 8 :21am Retroperitoneal lymphadenopathy April 8:21am Ulcerative colitis April 29, 2025 8:21 am Ascites May 12, 2025 7:3 2am Iron deficiency anemia due to chronic bl ood loss May 12, 2025 7:32am Mediastinal lymphadenopathy May 12, 2025 7:32am Mesenteric lymphadenopathy May 12 025 7:32am Metastasis to liver of unknown origin [facility] 2024 7:32am Pelvic lymphadenopathy May 12, 2025 7:32am Retroperitoneal lymphadenopathy May 122024 7:32am Ulcerative colitis May 12, 2025 7:3 2am Abdominal hernia May 15, 2025 9:1 5am Atrial fibrillation May 15, 2025 9:1 5am Encounter to establish care May 15, 2025 9:15am Metastasis to liver of unknown origin [facility] 2024 9:15am Ascites May 27, 2025 7: 32am Iron deficiency anemia due to chronic bl ood loss May 27, 2025 7:32am Mediastinal lymphadenopathy May 27, 2025 7:32am Mesenteric lymphadenopathy May 27, 2025 7:32am Metastasis to liver of unknown origin Au 2024 7:32am Pelvic lymphadenopathy May 27, 2025 7:32am Retroperitoneal lymphadenopathy May [id number] 7:32am Ulcerative colitis May 27, 2025 7: 32am Additional Source Comments (unrecognized sect ion and content) No Status Records FoundNo Status Records FoundNo Status Records FoundNo Status Records Found INFORMATION SOURCE (unrecogn ized section and content) DATE CREATED AUTHOR 05/22/2021 [facility] ([place]) DATE CREATED AUTHOR AUTHOR'S ORGANIZ ATION 07/27/2024 [facility] DATE CREATED AUTHOR AUTHOR'S ORGANIZ ATION 04/12/2025 [facility] [place] DATE CREATED AUTHOR AUTHOR'S ORGANIZ ATION 06/02/2025 [facility] Care Teams (unrecognized sec tion and content) Team Status: Active Member Role Status Dates No Primary Care Physician Family Provider Active No Primary Care Physician Primary Care Provider Active Team Status: Inactive Member Role Status Dates No Primary Care Physician Primary Care Provider Active Dr. 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 Jose Ramachandran DO [...] Start: November 23, 2024 Dr. Kailash Gustafson , Attending Provider Active Start: November 23, 2024 [...] tart: November 24, 2024 Dr. Dinah Lazaro DO Admit Provider Active Start : November 24, [...] tart: November 24, 2024 Dr. Dinah Lazaro DO Admit Provider Active Start : November 24, 2024 Dr. Dinah Lazaro DO Other Provider Active Start : November 24, 2024 Dr. John Love MD Referring Provider Active Start: November 24, 2024 Dr. John Love MD Other Provider Active Start: November 24, 2024 Dr. Kailash Gustafson DO Attending Provider Active Start: November 24, 2024 [...] 2025 End: February 05, 2025 Geeta Rodgers FEATHER SHAPER, FEATHER SHAPER-C Attending Provider Active Start: February 05, 2025 [...] Status: Active Member Role Status Dates Johny SANTIAGO PA Primary Care Provider Active [...] 13, 2025 End: February 13, 2025 Johny Rodríguez PA, PA Primary Care Provider Active Start: February 13, 2025 End: February 13, 2025 Johny Rodríguez PA, PA Attending Provider Active St art: February 13, 2025 End: February 13, 2025 Team Status: Active Member Role Status Dates Dr. Jose Ramachandran DO Primary Care Provider Active Start: February 23, 2025 Dr. Trish Ortiz MD Attending Provider Active Start: February 23, 2025 Dr. Trish Ortiz MD Referring Provider Active Start: February 23, 2025 Team Status: Inactive Member Role Status Dates Johny Rodríguez PA, PA Primary Care Provider Active Start: [...] 04, 2025 End: March 04, 2025 Johny Rodríguez PA, PA Primary Care Provider Active Start: March 04, 2025 End: March 04, 2025 Team Status: Inactive Member Role Status Dates Johny Rodríguez PA, PA Primary Care Provider Active Start: March 10, 2025 End: March 10, 2025 Dr. Aryan Ramirez DO Emergency Provider Active Start: March 10, 2025 End: March 10, 2025 Team Status: Inactive Member Role Status Dates Johny Rodríguez PA, PA Primary Care Provider Active Start: March 10, 2025 End: March 10, 2025 Dr. Aryan Ramirez DO Attending Provider Active Start: March 10, 2025 End: March 10, 2025 Dr. Aryan Ramirez DO Emergency Provider Active Start: March 10, 2025 End: March 10, 2025 Team Status: Inactive Member Role Status Dates Johny Rodríguez PA, PA Primary Care Provider Active Start: March 18, 2025 End: March 18, 2025 Johny Rodríguez PA, PA Referring Provider Active St art: March 18, 2025 End: March 18, 2025 Dr. Trish Ortiz MD Attending Provider Active Start: March 18, 2025 End: March 18, 2025 Team Status: Active Member Role Status Dates Dr. Jose Ramachandran DO Primary Care Provider Active Start: March 18, 2025 Dr. Trish Ortiz MD Attending Provider Active Start: March 18, 2025 Dr. Trish Ortiz MD Referring Provider Active Start: March 18, 2025 Team Status: Inactive Member Role Status Dates JACK Sinha Primary Care Provider Active Start: March 25, 2025 End: March 25, 2025 JACK Sinha Referring Provider Active St art: March 25, 2025 End: March 25, 2025 Geeta Rodgers FEATHER SHAPER, FEATHER SHAPER-C Attending Provider Active Start: March 25, 2025 End: March 25, 2025 Team Status: Active Member Role Status Dates Dr. Jose Ramachandran DO Primary Care Provider Active Start: March 25, 2025 Dr. Trish Ortiz MD Attending Provider Active Start: March 25, 2025 Dr. Trish Ortiz MD Referring Provider Active Start: March 25, 2025 Team Status: Inactive Member Role Status Dates JACK Sinha Primary Care Provider Active Start: March 31, 2025 End: March 31, 2025 JACK Sinha Referring Provider Active St art: March 31, 2025 End: March 31, 2025 Dr. Trish Ortiz MD Attending Provider Active Start: March 31, 2025 End: March 31, 2025 Team Status: Active Member Role Status Dates Dr. Jose Ramachandran DO Primary Care Provider Active Start: March 31, 2025 Dr. Trish Ortiz MD Attending Provider Active Start: March 31, 2025 Dr. Trish Ortiz MD Referring Provider Active Start: March 31, 2025 Team Status: Active Member Role/Relationship Status Dates JACK Sinha Primary Care Provider Active Team Status: Inactive Member Role/Relationship Status Dates Dr. Jose Ramachandran DO Primary Care Provider Active Start: December 10, 2024 End: December 10, 2024 Dr. Trish Ortiz MD Attending Provider Active Start: December 10, 2024 End: December 10, 2024 MARIA LUISA Handy Referring Provider Active S tart: December 10, 2024 End: December 10, 2024 Team Status: Inactive Member Role/Relationship Status Dates Dr. Jose Ramachandran DO Primary Care Provider Active Start: December 29, 2024 End: December 29, 2024 Dr. Jose Ramachandran DO Referring Provider Active S tart: December 29, 2024 End: December 29, 2024 Dr. Trish Ortiz MD Attending Provider Active Start: December 29, 2024 End: December 29, 2024 Team Status: Inactive Member Role/Relationship Status Dates Dr. Jose Ramachandran DO Primary Care Provider Active Start: February 03, 2025 End: February 03, 2025 Dr. Jose Ramachandran DO Referring Provider Active S tart: February 03, 2025 End: February 03, 2025 Dr. Trish Ortiz MD Attending Provider Active Start: February 03, 2025 End: February 03, 2025 Team Status: Inactive Member Role/Relationship Status Dates Dr. Jose Ramachandran DO Primary Care Provider Active Start: February 05, 2025 End: February 05, 2025 Dr. Jose Ramachandran DO Referring Provider Active S tart: February 05, 2025 End: February 05, 2025 CARLOS Cross NPC Attending Provider Active Start: February 05, 2025 End: February 05, 2025 Team Status: Inactive Member Role/Relationship Status Dates Dr. Jose Ramachandran DO Primary Care Provider Active Start: February 06, 2025 End: February 06, 2025 Dr. Jose Ramachandran DO Referring Provider Active S tart: February 06, 2025 End: February 06, 2025 Dr. Mark oMrales MD Attending Provider Active S tart: February 06, 2025 End: February 06, 2025 Team Status: Inactive Member Role/Relationship Status Dates Dr. Jose Ramachandran DO Referring Provider Active S tart: February 09, 2025 End: February 09, 2025 Dr. Maya Live MD Attending Provider Active Start: February 09, 2025 End: February 09, 2025 Johny SANTIAGO, PA Primary Care Provider Active Start: February 09, 2025 End: February 09, 2025 Team Status: Inactive Member Role/Relationship Status Dates Johny Rodríguez PA, PA Primary Care Provider Active Start: February 11, 2025 End: February 11, 2025 Dr. Maya Live MD Attending Provider Active Start: February 11, 2025 End: February 11, 2025 Dr. Maya Live MD Referring Provider Active Start: February 11, 2025 End: February 11, 2025 Team Status: Active Member Role/Relationship Status Dates Johny Rodríguez PA, PA Primary Care Provider Active Start: February 11, 2025 Dr. Maya Live MD Attending Provider Active Start: February 11, 2025 Dr. Maya Live MD Referring Provider Active Start: February 11, 2025 Dr. Maya Live MD Other Provider Active S tart: February 11, 2025 Team Status: Inactive Member Role/Relationship Status Dates Dr. Jose Ramachandran DO Referring Provider Active S tart: February 13, 2025 End: February 13, 2025 Johny Rodríguez PA, PA Primary Care Provider Active Start: February 13, 2025 End: February 13, 2025 Johny Rodríguez PA, PA Attending Provider Active St art: February 13, 2025 End: February 13, 2025 Team Status: Inactive Member Role/Relationship Status Dates Johny Rodríguez PA, PA Primary Care Provider Active Start: February 26, 2025 End: February 26, 2025 Dr. Trish Ortiz MD Attending Provider Active Start: February 26, 2025 End: February 26, 2025 Dr. Trish Ortiz MD Referring Provider Active Start: February 26, 2025 End: February 26, 2025 Team Status: Inactive Member Role/Relationship Status Dates Dr. Trish Ortiz MD Attending Provider Active Start: March 04, 2025 End: March 04, 2025 Dr. Trish Ortiz MD Referring Provider Active Start: March 04, 2025 End: March 04, 2025 Johny Rodríguez PA, PA Primary Care Provider Active Start: March 04, 2025 End: March 04, 2025 Team Status: Inactive Member Role/Relationship Status Dates Johny Rodríguez PA, PA Primary Care Provider Active Start: March 10, 2025 End: March 10, 2025 Dr. Aryan Ramirez DO Attending Provider Active Start: March 10, 2025 End: March 10, 2025 Dr. Aryan Ramirez DO Emergency Provider Active Start: March 10, 2025 End: March 10, 2025 Team Status: Inactive Member Role/Relationship Status Dates Johny SANTIAGO PA Primary Care Provider Active Start: March 18, 2025 End: March 18, 2025 Johny Rodríguez PA, PA Referring Provider Active St art: March 18, 2025 End: March 18, 2025 Dr. Trish Ortiz MD Attending Provider Active Start: March 18, 2025 End: March 18, 2025 Team Status: Inactive Member Role/Relationship Status Dates Johny Rodríguez PA, PA Primary Care Provider Active Start: March 25, 2025 End: March 25, 2025 Johny Rodríguez PA PA Referring Provider Active St art: March 25, 2025 End: March 25, 2025 Geeta Rodgers FEATHER SHAPER, FEATHER SHAPER-C Attending Provider Active Start: March 25, 2025 End: March 25, 2025 Team Status: Inactive Member Role/Relationship Status Dates Johny SANTIAGO PA Primary Care Provider Active Start: March 31, 2025 End: March 31, 2025 Johyn SANTIAGO PA Referring Provider Active St art: March 31, 2025 End: March 31, 2025 Dr. Trish Ortiz MD Attending Provider Active Start: March 31, 2025 End: March 31, 2025 Team Status: Active Member Role/Relationship Status Dates Dr. Jose Ramachandran DO Primary Care Provider Active Start: April 03, 2025 Dr. Trish Ortiz MD Attending Provider Active Start: April 03, 2025 Dr. Trish Ortiz MD Referring Provider Active Start: April 03, 2025 Team Status: Inactive Member Role/Relationship Status Dates Dr. Jose Ramachandran DO Referring Provider Active S tart: April 07, 2025 End: April 07, 2025 Dr. Mark Morales MD Attending Provider Active S tart: April 07, 2025 End: April 07, 2025 Johny SANTIAGO, PA Primary Care Provider Active Start: April 07, 2025 End: April 07, 2025 Team Status: Inactive Member Role/Relationship Status Dates Dr. Jose Ramachandran DO Primary Care Provider Active Start: December 29, 2024 End: December 29, 2024 Dr. Jose Ramachandran DO Referring Provider Active S tart: December 29, 2024 End: December 29, 2024 Dr. Trish Ortiz MD Attending Provider Active Start: December 29, 2024 End: December 29, 2024 Team Status: Inactive Member Role/Relationship Status Dates Dr. Jose Ramachandran DO Primary Care Provider Active Start: February 03, 2025 End: February 03, 2025 Dr. Jose Ramachandran DO Referring Provider Active S tart: February 03, 2025 End: February 03, 2025 Dr. Trish Ortiz MD Attending Provider Active Start: February 03, 2025 End: February 03, 2025 Team Status: Inactive Member Role/Relationship Status Dates Dr. Jose Ramachandran DO Primary Care Provider Active Start: February 05, 2025 End: February 05, 2025 Dr. Jose Ramachandran DO Referring Provider Active S tart: February 05, 2025 End: February 05, 2025 Geeta Rodgers FEATHER SHAPER, FEATHER SHAPER-C Attending Provider Active Start: February 05, 2025 End: February 05, 2025 Team Status: Inactive Member Role/Relationship Status Dates Dr. Jose Ramachandran DO Primary Care Provider Active Start: February 06, 2025 End: February 06, 2025 Dr. Jose Ramachandran DO Referring Provider Active S tart: February 06, 2025 End: February 06, 2025 Dr. Mark Morales MD Attending Provider Active S tart: February 06, 2025 End: February 06, 2025 Team Status: Inactive Member Role/Relationship Status Dates Dr. Jose Ramachandran DO Referring Provider Active S tart: February 09, 2025 End: February 09, 2025 Dr. Maya Live MD Attending Provider Active Start: February 09, 2025 End: February 09, 2025 JACK Sinha Primary Care Provider Active Start: February 09, 2025 End: February 09, 2025 Team Status: Inactive Member Role/Relationship Status Dates JACK Sinha Primary Care Provider Active Start: February 11, 2025 End: February 11, 2025 Dr. Maya Live MD Attending Provider Active Start: February 11, 2025 End: February 11, 2025 Dr. Maya Live MD Referring Provider Active Start: February 11, 2025 End: February 11, 2025 Team Status: Active Member Role/Relationship Status Dates Johny Rodríguez PA, PA Primary Care Provider Active Start: February 11, 2025 Dr. Maya Live MD Attending Provider Active Start: February 11, 2025 Dr. Maya Live MD Referring Provider Active Start: February 11, 2025 Dr. Maya Live MD Other Provider Active S tart: February 11, 2025 Team Status: Inactive Member Role/Relationship Status Dates Dr. Jose Ramachandran DO Referring Provider Active S tart: February 13, 2025 End: February 13, 2025 Johny Rodríguez PA, PA Primary Care Provider Active Start: February 13, 2025 End: February 13, 2025 Johny Rodríguez PA, PA Attending Provider Active St art: February 13, 2025 End: February 13, 2025 Team Status: Inactive Member Role/Relationship Status Dates Johny Rodríguez PA, PA Primary Care Provider Active Start: February 26, 2025 End: February 26, 2025 Dr. Trish Ortiz MD Attending Provider Active Start: February 26, 2025 End: February 26, 2025 Dr. Trish Ortiz MD Referring Provider Active Start: February 26, 2025 End: February 26, 2025 Team Status: Inactive Member Role/Relationship Status Dates Dr. Trish Ortiz MD Attending Provider Active Start: March 04, 2025 End: March 04, 2025 Dr. Trish Ortiz MD Referring Provider Active Start: March 04, 2025 End: March 04, 2025 Johny Rodríguez PA, PA Primary Care Provider Active Start: March 04, 2025 End: March 04, 2025 Team Status: Inactive Member Role/Relationship Status Dates Johny Rodríguez PA, PA Primary Care Provider Active Start: March 10, 2025 End: March 10, 2025 Dr. Aryan Ramirez DO Attending Provider Active Start: March 10, 2025 End: March 10, 2025 Dr. Aryan Ramirez DO Emergency Provider Active Start: March 10, 2025 End: March 10, 2025 Team Status: Inactive Member Role/Relationship Status Dates Johny Rodríguez PA, PA Primary Care Provider Active Start: March 18, 2025 End: March 18, 2025 Johny Rodríguez PA, PA Referring Provider Active St art: March 18, 2025 End: March 18, 2025 Dr. Trish Ortiz MD Attending Provider Active Start: March 18, 2025 End: March 18, 2025 Team Status: Inactive Member Role/Relationship Status Dates Johny Rodríguez PA, PA Primary Care Provider Active Start: March 25, 2025 End: March 25, 2025 Johny Rodríguez PA, PA Referring Provider Active St art: March 25, 2025 End: March 25, 2025 Geeta Rodgers FEATHER SHAPER, FEATHER SHAPER-C Attending Provider Active Start: March 25, 2025 End: March 25, 2025 Team Status: Inactive Member Role/Relationship Status Dates Johny Rodríguez PA, PA Primary Care Provider Active Start: March 31, 2025 End: March 31, 2025 Johny Rodríguez PA, PA Referring Provider Active St art: March 31, 2025 End: March 31, 2025 Dr. Trish Ortiz MD Attending Provider Active Start: March 31, 2025 End: March 31, 2025 Team Status: Inactive Member Role/Relationship Status Dates Dr. Jose Ramachandran DO Referring Provider Active S tart: April 07, 2025 End: April 07, 2025 Dr. Mark Morales MD Attending Provider Active S tart: April 07, 2025 End: April 07, 2025 Johny Rodríguez PA, PA Primary Care Provider Active Start: April 07, 2025 End: April 07, 2025 Team Status: Inactive Member Role/Relationship Status Dates Johny Rodríguez PA, PA Primary Care Provider Active Start: April 15, 2025 End: April 15, 2025 Johny Rodríguez PA, PA Referring Provider Active St art: April 15, 2025 End: April 15, 2025 Dr. Trish Ortiz MD Attending Provider Active Start: April 15, 2025 End: April 15, 2025 Team Status: Active Member Role/Relationship Status Dates Dr. Jose Ramachandran DO Primary Care Provider Active Start: April 15, 2025 Dr. Trish Ortiz MD Attending Provider Active Start: April 15, 2025 Dr. Trish Ortiz MD Referring Provider Active Start: April 15, 2025 Team Status: Inactive Member Role/Relationship Status Dates Johny Wayt PA, PA Primary Care Provider Active Start: April 21, 2025 End: April 21, 2025 JACK Sinha Referring Provider Active St art: April 21, 2025 End: April 21, 2025 Geeta Rodgers FEATHER SHAPER, FEATHER SHAPER-C Attending Provider Active Start: April 21, 2025 End: April 21, 2025 Team Status: Active Member Role/Relationship Status Dates Dr. Jose Ramachandran DO Primary Care Provider Active Start: April 21, 2025 Dr. Trish Ortiz MD Attending Provider Active Start: April 21, 2025 Dr. Trish Ortiz MD Referring Provider Active Start: April 21, 2025 Team Status: Inactive Member Role/Relationship Status Dates Dr. Jose Ramachandran DO Primary Care Provider Active Start: February 03, 2025 End: February 03, 2025 Dr. Jose Ramachandran DO Referring Provider Active S tart: February 03, 2025 End: February 03, 2025 Dr. Trish Ortiz MD Attending Provider Active Start: February 03, 2025 End: February 03, 2025 Team Status: Inactive Member Role/Relationship Status Dates Dr. Jose Ramachandran DO Primary Care Provider Active Start: February 05, 2025 End: February 05, 2025 Dr. Jose Ramachandran DO Referring Provider Active S tart: February 05, 2025 End: February 05, 2025 Geeta Rodgers FEATHER SHAPER, FEATHER SHAPER-C Attending Provider Active Start: February 05, 2025 End: February 05, 2025 Team Status: Inactive Member Role/Relationship Status Dates Dr. Jose Ramachandran DO Primary Care Provider Active Start: February 06, 2025 End: February 06, 2025 Dr. Jose Ramachandran DO Referring Provider Active S tart: February 06, 2025 End: February 06, 2025 Dr. Mark Morales MD Attending Provider Active S tart: February 06, 2025 End: February 06, 2025 Team Status: Inactive Member Role/Relationship Status Dates Dr. Jose Ramachandran DO Referring Provider Active S tart: February 09, 2025 End: February 09, 2025 Dr. Maya Live MD Attending Provider Active Start: February 09, 2025 End: February 09, 2025 JACK Sinha Primary Care Provider Active Start: February 09, 2025 End: February 09, 2025 Team Status: Inactive Member Role/Relationship Status Dates Johny Rodríguez PA, PA Primary Care Provider Active Start: February 11, 2025 End: February 11, 2025 Dr. Maya Live MD Attending Provider Active Start: February 11, 2025 End: February 11, 2025 Dr. Maya Live MD Referring Provider Active Start: February 11, 2025 End: February 11, 2025 Team Status: Active Member Role/Relationship Status Dates Johny Rodríguez PA, PA Primary Care Provider Active Start: February 11, 2025 Dr. Maya Live MD Attending Provider Active Start: February 11, 2025 Dr. Maya Live MD Referring Provider Active Start: February 11, 2025 Dr. Maya Live MD Other Provider Active S tart: February 11, 2025 Team Status: Inactive Member Role/Relationship Status Dates Dr. Jose Ramachandran DO Referring Provider Active S tart: February 13, 2025 End: February 13, 2025 Johny Rodríguez PA, PA Primary Care Provider Active Start: February 13, 2025 End: February 13, 2025 Johny Rodríguez PA, PA Attending Provider Active St art: February 13, 2025 End: February 13, 2025 Team Status: Inactive Member Role/Relationship Status Dates Johny Rodríguez PA, PA Primary Care Provider Active Start: February 26, 2025 End: February 26, 2025 Dr. Trish Ortiz MD Attending Provider Active Start: February 26, 2025 End: February 26, 2025 Dr. Trish Ortiz MD Referring Provider Active Start: February 26, 2025 End: February 26, 2025 Team Status: Inactive Member Role/Relationship Status Dates Dr. Trish Ortiz MD Attending Provider Active Start: March 04, 2025 End: March 04, 2025 Dr. Trish Ortiz MD Referring Provider Active Start: March 04, 2025 End: March 04, 2025 Johny Rodríguez PA, PA Primary Care Provider Active Start: March 04, 2025 End: March 04, 2025 Team Status: Inactive Member Role/Relationship Status Dates Johny Rodríguez PA, PA Primary Care Provider Active Start: March 10, 2025 End: March 10, 2025 Dr. Aryan Ramirez DO Attending Provider Active Start: March 10, 2025 End: March 10, 2025 Dr. Aryan Ramirez DO Emergency Provider Active Start: March 10, 2025 End: March 10, 2025 Team Status: Inactive Member Role/Relationship Status Dates Johny Rodríguez PA, PA Primary Care Provider Active Start: March 18, 2025 End: March 18, 2025 Johny Rodríguez PA, PA Referring Provider Active St art: March 18, 2025 End: March 18, 2025 Dr. Trish Ortiz MD Attending Provider Active Start: March 18, 2025 End: March 18, 2025 Team Status: Inactive Member Role/Relationship Status Dates Johny Rodríguez PA, PA Primary Care Provider Active Start: March 25, 2025 End: March 25, 2025 Johny Rodríguez PA, PA Referring Provider Active St art: March 25, 2025 End: March 25, 2025 Geeta Rodgers FEATHER SHAPER, FEATHER SHAPER-C Attending Provider Active Start: March 25, 2025 End: March 25, 2025 Team Status: Inactive Member Role/Relationship Status Dates Johny Rodríguez PA, PA Primary Care Provider Active Start: March 31, 2025 End: March 31, 2025 Johny Rodríguez PA, PA Referring Provider Active St art: March 31, 2025 End: March 31, 2025 Dr. Trish Ortiz MD Attending Provider Active Start: March 31, 2025 End: March 31, 2025 Team Status: Inactive Member Role/Relationship Status Dates Dr. Jose Ramachandran DO Referring Provider Active S tart: April 07, 2025 End: April 07, 2025 Dr. Mark Morales MD Attending Provider Active S tart: April 07, 2025 End: April 07, 2025 Johny Rodríguez PA, PA Primary Care Provider Active Start: April 07, 2025 End: April 07, 2025 Team Status: Inactive Member Role/Relationship Status Dates Johny Rodríguez PA, PA Primary Care Provider Active Start: April 15, 2025 End: April 15, 2025 Johny Rodrígeuz PA, PA Referring Provider Active St art: April 15, 2025 End: April 15, 2025 Dr. Trish Ortiz MD Attending Provider Active Start: April 15, 2025 End: April 15, 2025 Team Status: Inactive Member Role/Relationship Status Dates Johny Rodríguez PA, PA Primary Care Provider Active Start: April 21, 2025 End: April 21, 2025 Johny Rodríguez PA, PA Referring Provider Active St art: April 21, 2025 End: April 21, 2025 Geeta Rodgers FEATHER SHAPER, FEATHER SHAPER-C Attending Provider Active Start: April 21, 2025 End: April 21, 2025 Team Status: Inactive Member Role/Relationship Status Dates Johny Rodríguez PA, PA Primary Care Provider Active Start: April 29, 2025 End: April 29, 2025 Johny Rodríguez PA, PA Referring Provider Active St art: April 29, 2025 End: April 29, 2025 Geeta Rodgers FEATHER SHAPER, FEATHER SHAPER-C Attending Provider Active Start: April 29, 2025 End: April 29, 2025 Team Status: Active Member Role/Relationship Status Dates Dr. Jose Ramachandran DO Primary Care Provider Active Start: April 29, 2025 Dr. Trish Ortiz MD Attending Provider Active Start: April 29, 2025 Dr. Trish Ortiz MD Referring Provider Active Start: April 29, 2025 Team Status: Inactive Member Role/Relationship Status Dates Johny Rodríguez PA, PA Primary Care Provider Active Start: April 30, 2025 End: April 30, 2025 Gabo Whelan MD Emergency Provider Active Star t: April 30, 2025 End: April 30, 2025 Team Status: Inactive Member Role/Relationship Status Dates Johny Rodríguez PA, PA Primary Care Provider Active Start: April 30, 2025 End: April 30, 2025 Gabo Whelan MD Attending Provider Active Star t: April 30, 2025 End: April 30, 2025 Gabo Whelan MD Emergency Provider Active Star t: April 30, 2025 End: April 30, 2025 Team Status: Active Member Role/Relationship Status Dates Dr. Jose Ramachandran DO Primary Care Provider Active Start: May 12, 2025 Dr. Trish Ortiz MD Attending Provider Active Start: May 12, 2025 Dr. Trish Ortiz MD Referring Provider Active Start: May 12, 2025 Team Status: Inactive Member Role/Relationship Status Dates Johny Rodríguez PA, PA Primary Care Provider Active Start: May 12, 2025 End: May 12, 2025 Johny SANTIAGO PA Referring Provider Active St art: May 12, 2025 End: May 12, 2025 Geeta Rodgers FEATHER SHAPER, FEATHER SHAPER-C Attending Provider Active Start: May 12, 2025 End: May 12, 2025 Team Status: Inactive Member Role/Relationship Status Dates Johny SANTIAGO PA Primary Care Provider Active Start: May 12, 2025 End: May 12, 2025 Johny SANTIAGO PA Referring Provider Active St art: May 12, 2025 End: May 12, 2025 Geeta Rodgers FEATHER SHAPER, FEATHER SHAPER-C Attending Provider Active Start: May 12, 2025 End: May 12, 2025 Team Status: Active Member Role/Relationship Status Dates Dr. Jose Ramachandran DO Primary Care Provider Active Start: May 14, 2025 Dr. Trish Ortiz MD Attending Provider Active Start: May 14, 2025 Dr. Trish Ortiz MD Referring Provider Active Start: May 14, 2025 Team Status: Inactive Member Role/Relationship Status Dates Dr. Jose Ramachandran DO Referring Provider Active S tart: May 15, 2025 End: May 15, 2025 Dr. Merlin Heredia MD Attending Provider Active Start: May 15, 2025 End: May 15, 2025 Johny SANTIAGO PA Primary Care Provider Active Start: May 15, 2025 End: May 15, 2025 Team Status: Inactive Member Role/Relationship Status Dates Dr. Jose Ramachandran DO Referring Provider Active S tart: May 15, 2025 End: May 15, 2025 Dr. Merlin Heredia MD Attending Provider Active Start: May 15, 2025 End: May 15, 2025 Johny SANTIAGO PA Primary Care Provider Active Start: May 15, 2025 End: May 15, 2025 Team Status: Active Member Role/Relationship Status Dates Dr. Jose Ramachandran DO Primary Care Provider Active Start: May 27, 2025 Dr. Trish Ortiz MD Attending Provider Active Start: May 27, 2025 Dr. Trish Ortiz MD Referring Provider Active Start: May 27, 2025 Team Status: Inactive Member Role/Relationship Status Dates Johny SANTIAGO PA Primary Care Provider Active Start: May 27, 2025 End: May 27, 2025 JACK Sinha Referring Provider Active St art: May 27, 2025 End: May 27, 2025 Geeta Rodgers NP, ELEN-C Attending Provider Active Start: May 27, 2025 End: May 27, 2025 Goals (unrecognized section and content) Goals may be documented in a n alternate section Source Comments (unrecognize d section and content) In the event this informatio n is protected by the Federal Confidentiality of Alcohol and Drug Abuse Patient Records regulations: The Federal rules restrict any use of the information to criminally investigate or prosecute any alcohol or drug abuse patient.[facility] Reason for Visit (unrecogniz ed section and content) Reason Comments Insect Bite Widespread, unsure i f bed bug bites Specialty Diagnoses / Procedures Referred By Contac t Referred To Contact [facility] Diagnoses insect bites and rash Procedures EST SAME DAY [facility] [address] [place] [address] Referral ID Status Reason Start Date Expiration Date Visits Requested Visits Authorized [id number] New Request Financial Clearance Required - Self [...] 4 HOURS NEEDED, Starting on Sun01/20/25 at 1640, Until Sun01/20/25 at 1957, Nausea / Vomiting, 1st Line Nausea / Vomiting, Post-op/Post-Proc oxyCODONE-acetaminophen (PERCOCET) 5-325 MG per tablet 1 tablet(Linked Group 2) 1 tablet, Oral, EVERY 4 HOURS NEEDED, Starting on Sun01/20/25 at 1640, Until Sun01/20/25 at 1957, Moderate Pain, Use as initial dose. Higher dose may be administered if lower dose was previously documented as ineffective and did not result in adverse effects (RR<10, decrease in level of consciousness)., Post-op/Post-Proc oxyCODONE-acetaminophen (PERCOCET) 5-325 MG per tablet 2 tablet(Linked Group 2) 2 tablet, Oral, EVERY 4 HOURS NEEDED, Starting on Sun01/20/25 at 1640, Until Sun01/20/25 at 1957, Moderate Pain, Higher [...] 6 HOURS NEEDED, Starting on Sun01/20/25 at 1640, Until Sun01/20/25 at 1957, Nausea / Vomiting, 2nd Line Nausea / Vomiting, For IV route: dilute dose with 10mL normal saline and give by slow IV push at a rate of 5mg/min. Maximum of 40mg/day., Post-op/Post-Proc Linked Groups Order Group 1: HYDROmorphone (DILAUDID) injection 0.5 mgJump to med 0.5 mg, Intravenous, EVERY 3 HOURS NEEDED, Starting on Sun01/20/25 at 1640, Until Sun01/20/25 at 1957, Severe Pain, Use [...] 4 HOURS NEEDED, Starting on Sun01/20/25 at 164, Until Sun01/20/25 at 1957, Moderate Pain, Use as initial dose. Higher dose may be administered if lower dose was previously documented as ineffective and did not result in adverse effects (RR<10, decrease in level of consciousness)., Post-op/Post-Proc Or oxyCODONE-acetaminophen (PERCOCET) 5-325 MG per tablet 2 tabletJump to med 2 tablet, Oral, EVERY 4 HOURS NEEDED, Starting on Sun01/20/25 at 164, Until Sun01/20/25 at 1957, Moderate Pain, Higher [...] BE BASED ON THE PRIMARY CLINICAL RECORDS. [facility]. provides no warranty or guarantee of the accuracy or completeness of information in this document.
[2025-06-03] MEDS: 0.9% Saline Lock 10 ML Syringe IV (07:32)
== END | disposition home or self-care (01) ==
LOC: CT 07:09
PROVIDERS: PCP Physician Assistant; Referring Provider Nurse Practitioner Family; Visit Provider Nurse Practitioner Family
DX: 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 of liver and intrahepatic bile duct (principal); C80.1 Malignant (primary) neoplasm, unspecified; R59.0 Localized enlarged lymph nodes
CPT/HCPCS: 71260; 74177; Q9967; A4216

== ENCOUNTER 2025-08-19 10:01 | Emergency (ER) | payer MEDICAID, SELFPAY ==
[2025-08-19] VITALS (7 sets, daily range): BP systolic 97–114; BP diastolic 64–78; PULSE 94–127; RESP 18–24; TEMP 36.9–37.7; O2SAT 98–100; BMI 26.6
--- NOTE | 2025-08-19 10:10 | EKG12_ITS ---
Test Reason : Blood Pressure : */* mmHG Vent. Rate : 119 BPM Atrial Rate : * BPM P-R Int : * ms QRS Dur : 126 ms QT Int : 312 ms P-R-T Axes : * -77 65 degrees QTcB Int : 438 ms Atrial fibrillation with rapid ventricular response Right bundle branch block Left anterior fascicular block Bifascicular block Abnormal ECG Confirmed by SKYE HOOK, FRED ([id number]), photograph editor MARY CHENG ([id number]) on 08/24/2025 8:25:34 AM Referred By: Confirmed By: FRED CHEUNG MD
--- NOTE | 2025-08-19 10:20 | RAD_ITS ---
PROCEDURE: CHEST 1 VIEW (PORTABLE) 08/19/2025 REASON FOR EXAM: FEVER TECHNIQUE: Frontal view of the chest. COMPARISON: March 10, 2025. FINDINGS: Hardware: Right-sided port a catheter is seen with the tip at the junction of the superior vena cava and right atrium. Prior midline sternotomy and mitral valve replacement. Heart: Moderate cardiomegaly. Lungs: Enlargement of the pulmonary arteries bilaterally suggestive of pulmonary hypertension. No acute infiltrate is seen. Bones: Degenerative changes are identified within the thoracic spine. RAD/Chest 1 View (Portable) IMPRESSION: Cardiomegaly. Enlargement of the pulmonary arteries suggestive of pulmonary hypertension. Reading Location: [id number]
--- NOTE | 2025-08-19 10:50 | EDS_ITS ---
HPI History of Present Illness Chief Complaint: Fever Narrative Narrative: Patient is a 55-year-old male presenting from infusion center (was post to get chemotherapy today), follows with Kaci. Presenting for fever. Had a temperature of 101 and was tachycardic at the infusion center. Port was accessed and he did have a baseline labs drawn today but did not start chemotherapy. CT is actually been feeling well. Notes a slight sore throat over the weekend but denies any recent cough, shortness of breath, difficulty breathing, abdominal pain. Does note his urines been a little darker than normal but denies any blood or odor to his urine. States he is actually gained 3 pounds in the past few weeks which he is quite proud of. Denies any sick contacts. No other complaints or concerns reported at this time. I did discuss with nurse practitioner, Geeta Rodgers, who agrees that he needs a septic workup and we will contact her once we have the results. 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 He has a bicuspid aortic valve. Oncology note from 08/05/2025 reviewed?did have prior J-pouch in 1993 after total proctocolectomy. Started on modified FOLFOX March through June of this year. has completed 11 cycles. [facility] Medical History Shoulder pain, right Neck pain Encounter for chemotherapy management Abdominal hernia Encounter to establish care Total bilirubin, elevated Wears glasses Cancer Anemia Easy bruising Excessive bleeding Essential tremor History of GI bleed Gastric reflux Non-smoker Shortness of breath on exertion Colitis History of edema History of stress test History of echocardiogram Cardiology follow-up encounter Encounter for education Cardiac murmur Pelvic lymphadenopathy Mesenteric lymphadenopathy Retroperitoneal lymphadenopathy Mediastinal lymphadenopathy Iron deficiency anemia due to chronic blood loss Metastasis to liver of unknown origin Ulcerative colitis Ascites Atrial fibrillation HUANG (dyspnea on exertion) Nonrheumatic aortic (valve) stenosis Bicuspid aortic valve Acute kidney injury Chest pain, unspecified Asthma Churg-Geronimo syndrome Home Medications ?Medication ?Instructions ?Recorded ?Last Taken ?Type guaifenesin 1,200 mg tablet, 1,200 mg PO DAILY 5 11/22/24 History extended release 12 hr (Mucinex) cholestyramine-aspartame 4 gram 4 g PO TID #239.4 gram s 12/05/24 Unknown Rx oral powder (Cholestyramine Light) metoprolol succinate 25 mg 25 mg PO QDAY #90 tabs 12/0202/11/25 06:00 Rx tablet,extended release 24 hr (Toprol XL) ondansetron 8 mg disintegrating 8 mg PO Q8H PRN nausea and 03/18/25 Unknown Rx tablet vomiting #30 tabs pantoprazole 40 mg tablet,delayed 40 mg PO DAILY #30 t abs 05/12/25 Unknown Rx release immodium PO 05/15/25 Unknown History prochlorperazine maleate 10 mg 10 mg PO Q6H PRN nausea and 06/15/25 Unknown Rx tablet vomiting #30 tabs ciprofloxacin HCl 500 mg tablet 500 mg PO BID #14 tabs 08/19/25 Unknown Rx (Cipro) Allergy/AdvReac Type Severity Reaction Status Date / Time acetaminophen Allergy Mild Itching Verified 08/19/25 10:02 oxaliplatin Allergy Unknown Shortness Verified 08/19/25 10:02 of breath Penicillins (PCN) Allergy PT UNSURE Verified 08/19/25 10:02 OF REACTION Family History Other Heart disease Surgical History History of esophagogastroduodenoscopy (EGD) Hx of surgical procedure S/P proctocolectomy (~1993) Hx laparoscopic cholecystectomy History of right and left heart catheterization (LHC) (~07/12/01) History of aortic valve replacement with bioprosthetic valve Social History adopted: No household members: none housing: house current occupational status: disabled Smoking Status: Never smoker alcohol intake: current alcohol intake frequency: holidays/special occasions only details: had a beer last month substance use type: does not use what type of physical activity do you participate in: none seatbelt use: always do you feel safe at home: Yes ROS ROS ED Constitutional Constitutional ED: Reports fever(s); Denies chills Cardiovascular Cardiovascular: Denies chest pain or palpitations Respiratory/Chest Respiratory/Chest: Denies cough or dyspnea Gastrointestinal Gastrointestinal: Denies abdominal pain, nausea or vomiting Genitourinary Genitourinary ED: Reports other Details: notes darker urine ; Denies dysuria, hematuria or urinary frequency Musculoskeletal Musculoskeletal: Denies arthralgias or myalgias Psychiatric Psychiatric: Denies anxiety Hematologic/Lymphatic Hematologic/Lymphatic: Denies easy bleeding or easy bruising EXAM Physical Exam Const Vital Signs: 08/19/25 10:03 08/19/25 10:10 08/19/25 10:10 Temperature 99.7 F H 99.8 F H Temperature Source Oral Oral Pulse Rate 127 H 118 H 120 H Respiratory Rate 18 24 H 23 H Respiratory Effort Respiratory Pattern Blood Pressure 111/76 113/70 114/78 Blood Pressure Mean 87 84 90 Pulse Ox 98 98 98 Oxygen Delivery Method Room Air Room Air Room Air 08/19/25 11:06 08/19/25 11:14 08/19/25 12:01 Temperature 99.7 F H 99.4 F H Temperature Source Oral Oral Pulse Rate 120 H 98 Respiratory Rate 24 H 23 H Respiratory Effort Normal Non-Labored Respiratory Pattern Normal Blood Pressure 108/76 105/71 Blood Pressure Mean 86 82 Pulse Ox 99 98 Oxygen Delivery Method Room Air Room Air 08/19/25 13:00 Temperature 99.4 F H Temperature Source Oral Pulse Rate 94 Respiratory Rate 23 H Respiratory Effort Respiratory Pattern Blood Pressure 97/64 Blood Pressure Mean 75 Pulse Ox 98 Oxygen Delivery Method Room Air Positive well nourished and well developed General Appearance ED: well developed and NAD HEENT Reports dry mucous membranes HEENT Narrative: Normal oropharynx Mouth ED: Yes dry mucous membranes Mouth: dry mucous membranes Eyes PERRL General Eye ED: Negative for pale conjunctiva or scleral icterus Neck supple and no JVD Chest Wall inspection of chest normal and palpation of chest normal Resp normal respiratory effort and clear to auscultation bilaterally Cardio regular rhythm Rate: tachycardic GI normal to inspection, nondistended, normoactive bowel sounds and non-tender Extremity normal to inspection General Extremety ED: Negative for edema General Extremity: Negative for edema Neuro oriented x3 Sensorium / Orientation: alert Motor Exam: Negative for general weakness Psych mental status grossly normal Skin no rashes or lesions noted and no wounds MDM MDM MDM Narrative Medical decision making narrative: Patient evaluated for fever noted when he presented for chemotherapy today. Outpatient CBC and CMP already drawn. Sent to the ER for further evaluation. Last known to be tachycardic. Upon arrival to ER patient is tachycardic with normal blood pressure. [place] rature 99.7 in the emergency room. EKG does show atrial fibrillation at a rate of 118 bpm. He has a known history of atrial fibrillation. He is not anticoagulated because of his cancer and chemotherapy. Outpatient labs reviewed. Patient is have a leukocytosis of 13.1 and a chronic anemia with a hemoglobin 10.6 which is stable and actually slightly above his baseline. Normal immature granulocyte percentage. There is neutrophil predominance. Lactate is normal today. CMP shows a chronic transaminitis elevations bilirubin but is largely stable. Urinalysis not consistent with infection. Chest x-ray reviewed by myself as well as radiology does not show any acute process. Abdomen is soft and nontender and I do not think he requires abdomen imaging at this time as he is not symptomatic from that standpoint. Patient is given a liter of IV fluids as well as ibuprofen in the emergency room (not given Tylenol because of his history of liver disease). Vital signs do normalize in the emergency room. He states he is feeling better. Discussed with oncology, Ana Maria, who recommends finishing his bolus of IV fluids and can be discharged home with a course of ciprofloxacin. Will be given first dose in the emergency room. Cultures obtained this time. As patient is well- appearing with no obvious source we will hold off on admission/IV antibiotics at this time. Counseled that we will contact him if his cultures come back positive. Given strict return precautions. Will deaccessed his port, he will not receive chemotherapy this week (it is palliative) and will follow-up outp atient with oncology. He is agreeable to plan of care. Discharged home in stable condition. Lab Data Attestation: I reviewed the patient's lab results. Labs: Laboratory Results - last 24 hr 08/19/25 08/19/25 10:55 11:09 PT 16.9 H INR 1.3 APTT 29.8 Lactic Acid < 1.0 Urine Color Joan Urine Clarity Clear Urine pH 6.0 Ur Specific [place] 1.015 Urine Protein 30 H Urine Glucose (UA) Normal Urine Ketones Negative Urine Occult Blood 10 H Urine Nitrite Negative Urine Bilirubin 3 H Urine Urobilinogen 4 H Ur Leukocyte Esterase 25 H Urine RBC 0 SEEN Urine WBC 0-5 SEEN Ur Squamous Epith Cells 0-5 SEEN Urine Bacteria RARE Urine Mucus 0 SEEN Radiography Chest X-Ray - ED: 1 View, Read by ED Physician, Read by Radiologist and No Acute Disease Diagnostic Testing: Clinical Impression(s) from Imaging Studies Chest X-Ray 08/19/25 10:20 IMPRESSION: Cardiomegaly. Enlargement of the pulmonary arteries suggestive of pulmonary hypertension. Reading Location: [place] [id number] Rhythm Strip Rhythm Strip: A-fib Rate: 119 Ectopy: None EKG Initial EKG: Attestation: I personally reviewed and interpreted this EKG as follows: Interpretation: Atrial Fibrillation Comments: Atrial fibrillation with rapid ventricular sponsor 119 bpm Left axis deviation Bifascicular block with right bundle branch block and left anterior fascicular block Compared to prior EKG no significant changes Normal ST segments Prior EKG tracings: available for review Prior: Unchanged Discharge Plan Triage Chief Complaint: Fever ED Provider: Jeana Zavaleta Dx/Rx/DC Orders Clinical Impression: Fever, unknown origin, Atrial fibrillation, Leukocytosis, Metastasis to liver of unknown origin Instructions: ED FUO Adult Prescriptions: New ciprofloxacin HCl [Cipro] 500 mg tablet 500 mg PO BID Qty: 14 0RF No Action Cholestyramine Light 4 gram powder 4 g PO TID Qty: 239.4 2RF Rx Instructions: administer w/meal; avoid other meds within 1hr before or 4-6hr after dose metoprolol succinate [Toprol XL] 25 mg tablet extended release 24 hr 25 mg PO QDAY Qty: 90 3RF immodium PO Rx Instructions: immodium liquid unsure of strength takes daily pantoprazole 40 mg tablet,delayed release (DR/EC) 40 mg PO DAILY Qty: 30 2RF guaifenesin [Mucinex] 1,200 mg tablet extended release 12hr 1,200 mg PO DAILY ondansetron 8 mg tablet,disintegrating 8 mg PO Q8H PRN (Reason: nausea and vomiting) Qty: 30 2RF prochlorperazine maleate 10 mg tablet 10 mg PO Q6H PRN (Reason: nausea and vomiting) Qty: 30 2RF Primary Care Provider: Johny Rodríguez Referrals: Geeta Rodgers 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 You been started on antibiotics just in case. Your blood cultures are pending. Will contact you if they require IV antibiotics or come back positive. If you develop any worsening or new symptoms please do not hesitate to return immediately to the emergency room. Otherwise make sure you are pushing fluids and follow-up with oncology outpatient. No chemotherapy this week. Print Language: New Zealander Disposition Disposition: Home, Self Care D/C Safety Score for UGIB Assessment [place] Bleeding Score (GBS): Stratifies upper GI bleeding patients who are low-risk and candidates for outpatient management. Sex: Male Hemoglobin, BUN, Recent Vital Signs: Pulse Rate 94 Blood Pressure 97/64 Total Risk Score: 2 Score Interpretation: Score of 0: A GBS of 0 is a ?Low Risk? GI bleed, and is highly sensitive (99.6% in a 2006 retrospective study) for predicting which patients did not require any ?medical intervention?: blood transfusion, endoscopy, or surgery. This was confirmed in a 2009 Lancet study where patients with a score of 0 were actually discharged and had no GI bleeding mortality at 6 month followup Score above 0: A GBS greater than zero suggests a ?High Risk? GI bleed that is likely to require ?medical intervention?: transfusion, endoscopy, or surgery. A higher GBS also correlated with a higher likelihood of needing intervention Scores >/= 6 are associated with >50% risk of needing intervention D/C Safety Score for LGIB Assessment Assessment Tool: Readmission and adverse event risk in patients with acute lower GI bleeding. Age, in years: 40-69 Sex: Male Hemoglobin and Recent Vital Signs: Pulse Rate 94 08/19/25 13:00 Blood Pressure 97/64 08/19/25 13:00 Probability of safe discharge: 99% Total Risk Score: 2 Score Interpretation: Probability Percentage of safe discharge (absence of rebleeding, blood transfusion, therapeutic intervention, 28 day readmission, or ) Score of 8 or below: Consider discharge, with appropriate precautions. Score of 9 or above: Discharge NOT recommended. Consider admission with further workup and resuscitation as necessary.
[2025-08-19 11:17] LABS: Mucous, Urine 0 SEEN /hpf (<or=2+); Red Blood Cells-Urine 0 SEEN /hpf (0-5)
[2025-08-19 11:27] LABS: Color, Urine Amber (Yellow); Glucose, Dipstick Normal (Normal); Ketone-Dipstick Negative (Negative); Leukocyte Esterase-Dipstick 25 /ul (Negative); Nitrite-Dipstick Negative (Negative); Occult Blood-Urine 10 /ul (Negative); Protein-Dipstick 30 mg/dl (Negative); Specific Gravity, Urine 1.015 (1.002-1.030)
[2025-08-19 11:31] LABS: Urine Bilirubin Dipstick 3 mg/dL (Negative)
[2025-08-19 11:33] LABS: Squamous Epithelial Cells - UA 0-5 SEEN /hpf (0-5)
[2025-08-19 11:37] LABS: Prothrombin Time (Protime)PT. 16.9 SECONDS (11.7-14.9)
[2025-08-19 11:38] LABS: Partial Thromboplast Time 29.8 Seconds (24.1-36.2)
[2025-08-19] MEDS: 0.9% Normal Saline (1000mL) 1,000 ML 999 ML IV (11:48)
== END 2025-08-19 13:51 | disposition home or self-care (01) ==
PROVIDERS: Emergency Provider Emergency Medicine; PCP Physician Assistant; Visit Provider Emergency Medicine
DX: R50.9 Fever, unspecified (principal); 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 of liver and intrahepatic bile duct; I48.91 Unspecified atrial fibrillation; C80.1 Malignant (primary) neoplasm, unspecified; D72.829 Elevated white blood cell count, unspecified; Z79.899 Other long term (current) drug therapy; K21.9 Gastro-esophageal reflux disease without esophagitis; Z90.49 Acquired absence of other specified parts of digestive tract; Z95.3 Presence of xenogenic heart valve; D50.0 Iron deficiency anemia secondary to blood loss (chronic); R59.0 Localized enlarged lymph nodes
CPT/HCPCS: 36415; 36591; 71045; 80053; 81001; 83605; 83735; 84100; 85025; 85610; 85730; 87040; 87086; 87088; 87631; 93005; 96360; 96361; 99283; A4216

== ENCOUNTER → 2025-09-09 | Outpatient (CLI) | payer MEDICAID, SELFPAY ==
--- NOTE | 2025-09-09 08:01 | CT_ITS ---
PROCEDURE: CT CHEST, ABD, PEL W/CONTRAST 09/09/2025 REASON FOR EXAM: F/U METS CA UNKNOWN PRIMARY TECHNIQUE: Chest, abdomen and pelvis CT with intravenous contrast. Coronal and Sagittal reconstruction series were provided. One or more dose reduction techniques were used (e.g., Automated exposure control, adjustment of the mA and/or kV according to patient size, use of iterative reconstruction technique. PATIENT PREPARATION: Per protocol ORAL CONTRAST TYPE: None. AMOUNT: mL CONTRAST: Isovue-300 VOLUME: 94mL Gauge IV RADIATION DOSE SUMMARY: DLP: 1467.85 mGycm COMPARISON: CT chest/abdomen/pelvis 06/03/2025 FINDINGS: CT CHEST: Lines/devices: Right-sided chemo port lead extends to superior vena cava. Median sternotomy wires. Pulmonary parenchyma: No focal lung consolidation. Airways: The central airways are patent. Pleural space: No pneumothorax or pleural effusion. Heart and pericardium: The heart is enlarged. No pericardial effusion. Aortic valve replacement. No visible coronary artery calcifications. Mediastinum and ansley: Enlarged mediastinal lymph nodes. The largest measures up to 2.7 cm in the precarinal region. This appears overall unchanged from prior examination. Thoracic vessels: The thoracic aorta normal in caliber. The main pulmonary artery is dilated measuring up to 3.9 cm. Osseous structures: No aggressive osseous lesion. CT ABDOMEN/PELVIS: Liver: Hepatomegaly measuring up to 26 cm. Ill-defined heterogeneous hypoattenuating left hepatic lobe mass measuring approximately 8.2 x 8.5 cm, grossly stable when measured in similar fashion. Mild nodularity of the liver contour suspicious for hepatic cirrhosis. Gallbladder and biliary ducts: Cholecystectomy. Mild intrahepatic bile ductal dilatation. Pancreas:Unremarkable. No ductal dilatation or mass. No peripancreatic fluid. Spleen: Splenomegaly measuring up to 18 cm. Adrenal glands: Unremarkable. Kidneys and ureters: Normal renal size. No nephroureterolithiasis or hydroureteronephrosis. Left renal cyst. Urinary bladder: Nondistended, limiting evaluation. Questionable urinary bladder wall thickening. GI: Unremarkable stomach and duodenum. Normal caliber small bowel and large bowel. There are anastomotic sutures in the rectosigmoid junction. No evidence for bowel wall thickening. Appendix: Not visualized. Peritoneum: No ascites. Unchanged small fluid-filled umbilical hernia. Partially fluid-filled left inguinal hernia. Lymph nodes: There is abdominal mesenteric lymphadenopathy. There are prominent inguinal lymph nodes. Vasculature: Redemonstrated portal hypertension with esophageal, gastric, and splenic varices. There is recanalization of the umbilical vein. No abdominal aortic aneurysm. Reproductive organs: Prostatomegaly. Punctate prostatic calcifications. Musculoskeletal and soft tissues: No aggressive osseous lesions. Unremarkable soft tissues. CT/CT Chest, Abd, Pel w/Contrast IMPRESSION: 1. Grossly stable ill-defined hypoattenuating left hepatic lobe mass. 2. Mediastinal and abdominal lymphadenopathy. 3. Hepatosplenomegaly. 4. Portal hypertension. 5. Pulmonary arterial hypertension. 6. Additional findings as discussed in the body of the report. Reading Location: [id number]
== END | disposition home or self-care (01) ==
LOC: CT 08:01
PROVIDERS: PCP Physician Assistant; Referring Provider Internal Medicine Hematology & Oncology; Visit Provider Internal Medicine Hematology & Oncology
DX: 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 of liver and intrahepatic bile duct (principal); C80.1 Malignant (primary) neoplasm, unspecified
CPT/HCPCS: 71260; 74177; Q9967